=== PATIENT | male | born 1975 | race Caucasian/White ===

== ENCOUNTER 2018-06-21 01:06 | Observation (INO) ==
[2018-06-21 01:25] LABS: Basophils % 0.4 % (0.1-2.0); Eosinophils # 0.2 K/mm3 (0.0-0.4); Eosinophils % 2.1 % (0.1-12.0); Hematocrit 39.5 % (42.0-52.0); Hemoglobin 13.8 g/dL (14.1-18.0); Lymphocytes # 3.3 K/mm3 (0.7-4.5); Mean Corpuscular HGB Conc 34.9 g/dL (31.8-35.4); Mean Corpuscular Hemoglobin 32.5 pg (27.0-31.2); Mean Corpuscular Volume 93.2 fl (80-94); Mean Platelet Volume 7.1 fl (7.4-10.4); Monocytes # 0.5 K/mm3 (0.1-1.0); Monocytes % 6.2 % (1.7-9.3); Neutrophils # 4.2 K/mm3 (1.8-7.8); Neutrophils % 51.4 % (37.0-80.0); Platelet Count 220 K/mm3 (142-424); Red Blood Count 4.24 M/mm3 (4.60-6.20); White Blood Count 8.2 K/mm3 (4.8-10.8)
--- NOTE | 2018-06-21 01:34 | Emergency Department Note ---
ED Disposition Clinical Impression: Angina at rest, Tobacco use, Hypokalemia, Obesity (BMI 30.0-34.9) CAD (coronary artery disease) Qualifiers: Coronary Disease-Associated Artery/Lesion type: unspecified vessel or lesion type [place] vs. transplanted heart: [place] heart Associated angina: with unspecified angina Qualified Code(s): I25.119 - Atherosclerotic heart disease of [place] coronary artery with unspecified angina pectoris Disposition: Admitted as Observation Condition on Discharge: Good - Critical Care Critical Care Time: No Attestation: On 06/21/18, the high probability of a clinically significant, sudden or life threatening deterioration of the following system(s) required my full and direct attention, intervention and personal management. The time I documented below is in addition to time spent performing reported procedures but includes the following listed in this critical care notation. Medical Decision Making - Medical Records Medical records reviewed: Yes: I reviewed the patient's medical records. - Juan C Inquiry Pt receiving controlled substance: No Vital Signs: 06/21/18 01:07 Temperature 98.2 F Temperature Source Oral Pulse Rate [Right Brachial] 76 Respiratory Rate 15 Blood Pressure [Right Arm] 158/77 H Blood Pressure Mean [Right Arm] 104 02 Sat by Pulse Oximetry 97 - Lab Data Lab results reviewed: Yes: I reviewed the patient's lab results. Lab Results 06/21/18 01:10: WBC 8.2, RBC 4.24 L, Hgb 13.8 L, Hct 39.5 L, MCV 93.2, MCH 32.5 H, MCHC 34.9, RDW 14.0, Plt Count 220, MPV 7.1 L, Neut % (Auto) 51.4, Lymph % (Auto) 40.0, [place] % (Auto) 6.2, Eos % (Auto) 2.1, Baso % (Auto) 0.4, Neut # (Auto) 4.2, Lymph # (Auto) 3.3, [place] # (Auto) 0.5, Eos # (Auto) 0.2, Baso # (Auto) 0.0 06/21/18 01:10: Sodium 142, Potassium 2.9 L*, Chloride 103, Carbon Dioxide 30, Anion Gap 11.9, BUN 6 L, Creatinine 0.77, Estimated Creat Clear 176, Estimated GFR 112, Est GFR ( Amer) 135, Calcium 8.8, Troponin I 0.05 Result diagrams: 06/21/18 01:10 06/21/18 01:10 Orders (Tests/Meds): ED MEDICATIONS Generic Name Dose Route Start Last Admin Trade Name Freq PRN Reason Stop Dose Admin Sodium Chloride 10 ml 06/21/18 01:15 Saline Flush 10ml Syringe IV 07/21/18 01:14 NEEDED PRN Maintain IV Site Discontinued Medications Generic Name Dose Route Start Last Admin Trade Name Freq PRN Reason Stop Dose Admin Aspirin 324 mg 06/21/18 01:20 06/21/18 01:20 Aspirin 81mg Chewable Tablet PO 06/21/18 01:21 324 mg ONCE ONE Administration Famotidine 20 mg 06/21/18 01:24 06/21/18 01:30 Pepcid 20mg/2ml Vial IV 06/21/18 01:25 20 mg ONCE ONE Administration Metoclopramide HCl 10 mg 06/21/18 01:24 06/21/18 01:30 Reglan 10mg/2ml Vial IVP 06/21/18 01:25 10 mg ONCE ONE Administration Nitroglycerin 1 gm 06/21/18 01:21 06/21/18 01:21 Nitroglycerin 1 Inch Oint Udp TD 06/21/18 01:22 1 gm ONCE ONE Administration Potassium Chloride 40 meq 06/21/18 01:39 06/21/18 01:43 Klor-Con 20meq Tablet PO 06/21/18 01:40 40 meq ONCE ONE Administration ORDERS Category Date Time Status XR chest portable Stat Exams 06/21/18 01:15 Taken BMP [Basic Metabolic Panel] Stat Lab 06/21/18 01:10 Received Troponin I Stat Lab 06/21/18 01:10 Received ECG Request by /Mala Stat Y 06/21/18 01:15 Ordered - Radiology Data #1 Image(s): Chest Image Reviewed: Yes I reviewed the patient's radiology image Preliminary Findings: Normal/NAD - ECG Data Tracing #1 Normal Sinus Rhythm: Yes Ischemic changes: non-specific ST-T wave changes ECG compared to prior tracings: there are no prior tracings available for comparison Chest Pain HPI - General Chief Complaint: Chest Pain Stated Complaint: chest pain Time Seen by Provider: 06/21/18 01:10 Mode of Arrival: Ambulatory Source of Information: Patient, Parent(s), Medical Record Limitations: No Limitations Description of Symptoms (Recalled from ER Triage Doc. by RN): Pt c/o chest pain that started last night. Reports that it has been intermittent, radiating between shoulder blades and down left arm. Reports he had the " maker" in 2017 and was stented. Reports that his pain is a 3/10 at the moment. - History of Present Illness HPI narrative: wm who had cad with stent 2016 and had been doing ok but has continued to smoke - pt has did well but over the last 2 days intermittent and progressive chest pain with rad to upper ext - also has some element of gerd MD complaint: chest pain indicative of cardiac Onset (ago): day(s) Duration: intermittent Activity at onset: during rest Pain location: substernal Severity: similar to previous episodes Pain radiation: RUE, LUE Risk Factors for CAD: Family Hx of CAD, Smoking Treatments prior to or on arrival for Cardiac Chest Pain: aspirin - LOBITO Score for Non-Stemi Age of Patient: 40-49 years old Heart Rate: 70-89 bpm Systolic Blood Pressure: 140-159 mmHg Serum Creatinine: 0.40-0.79 mg/dl CHF [place] Class: I-No CHF Other Risk Factors: None Non-Stemi Risk Score: 62 - Related Data Prior Cardiac Testing/Procedures: Stenting Home Medications Medication Instructions Recorded Confirmed Aspirin [Aspir 81] 81 mg PO DAILY 05/05/18 06/21/18 Clopidogrel Bisulfate [Plavix 75mg 75 mg PO DAILY 05/05/18 06/21/18 Tab] Venlafaxine HCl [Effexor XR 75mg 225 mg PO DAILY 05/05/18 06/21/18 capsule] Buprenorphine HCl/Naloxone HCl 8 mg SL DAILY 06/21/18 06/21/18 [Buprenorphin-Naloxon 8-2 mg Sl] Allergies Allergy/AdvReac Type Severity Reaction Status Date / Time cephalexin [From Keflex] Allergy Verified 05/05/18 12:42 ciprofloxacin [From Cipro] Allergy Verified 05/05/18 12:42 tramadol Allergy Verified 05/05/18 12:42 [facility] History - Hepatitis A Screen Drug use history?: Yes High risk sexual behaviors?: No History of sexually transmitted infection?: No Currently employed?: No Childcare worker?: No Do you have indoor plumbing?: Yes Do you have electricity?: Yes Attestation statement:: This patient has been screened for Hepatitis A risk factors. I have reviewed the patient's past medical history: Yes Medical History: Denies:: Cancer, Diabetes Mellitus Type 1, Diabetes Mellitus Type 2, MRSA Amputation: No - Social History Smoking Status: Current every day smoker Tobacco Type: cigarettes # Packs/Day (cigarettes): 1 Alcohol Intake: never Last Used Substance: unknown Occupational Status: employed Household Members: family - Psychiatric History Expresses thoughts of harming self/others: None Suicide Plan Description: No Plan ROS Obtained: Yes All systems reviewed & no additional complaints - Constitutional Constitutional: Denies fever(s) - Eyes Eyes: Denies change in vision - ENT Ears, Nose, Mouth, and Throat: Denies sore throat - Cardiovascular Cardiovascular: Reports chest pain, Reports chest pain at rest, Denies dyspnea, Reports radiating jaw, neck or arm pain - Respiratory Respiratory: No cough - Gastrointestinal Gastrointestingal: Denies: vomiting - Genitourinary Male Genitourinary: Denies flank pain - Musculoskeletal Musculoskeletal: Denies joint pain - Integumentary/Breasts Skin/Breast: Denies rash - Neurologic Neurologic: Denies seizure-like activity Physical Exam - General General appearance: alert - Head Head exam: normocephalic - Eye Eye exam: Present: PERRL, EOMI. Absent: scleral icterus - ENT ENT exam: Present: mucous membranes moist - Neck Neck exam: Present: trachea midline - Respiratory Respiratory exam: Present: normal lung sounds bilaterally. Absent: respiratory distress - Cardiovascular Cardiovascular exam: Present: regular rate, systolic murmur - Abdominal Exam Abdominal exam: Present: soft - Extremities Exam Extremities exam: Present: full ROM - Neurological Exam Neurological exam: Present: alert, oriented X3, CN II-XII intact - Psychiatric Psychiatric exam: Present: normal affect - Skin Skin exam: Absent: rash
[2018-06-21 01:35] LABS: Anion Gap 11.9 mEq/L (5-15); Calcium 8.8 mg/dL (8.5-10.1)
[2018-06-21 01:39] LABS: Potassium 2.9 mmoL/L (3.5-5.1)
[2018-06-21 05:38] LABS: Basophils % 0.7 % (0.1-2.0); Eosinophils # 0.2 K/mm3 (0.0-0.4); Eosinophils % 2.6 % (0.1-12.0); Lymphocytes # 2.3 K/mm3 (0.7-4.5); Lymphocytes % 33.7 % (10-50); Mean Corpuscular HGB Conc 34.2 g/dL (31.8-35.4); Mean Corpuscular Hemoglobin 32.1 pg (27.0-31.2); Mean Corpuscular Volume 93.7 fl (80-94); Mean Platelet Volume 7.6 fl (7.4-10.4); Monocytes # 0.3 K/mm3 (0.1-1.0); Neutrophils # 3.9 K/mm3 (1.8-7.8); Neutrophils % 58.1 % (37.0-80.0); Platelet Count 207 K/mm3 (142-424); Red Blood Count 4.05 M/mm3 (4.60-6.20); Red Cell Distribution Width 13.8 % (11.5-17.5); White Blood Count 6.8 K/mm3 (4.8-10.8)
[2018-06-21 05:47] LABS: INR 1.03 (0.9-1.1); Prothrombin Time 10.6 seconds (9.4-11.8)
[2018-06-21 05:51] LABS: Anion Gap 10.9 mEq/L (5-15); Calcium 8.9 mg/dL (8.5-10.1); Chol/HDL Ratio 5.9 (1-3.5); Potassium 3.9 mmoL/L (3.5-5.1)
--- NOTE | 2018-06-21 08:22 | Consult Report ---
Addendum entered and electronically signed by FRANCESCO Emerson 06/21/18 13:31: Pt received DEWAYNE to RCA. Continue ASA 81 mg daily along with plavix 75 mg daily. Added atorvastatin 40 mg daily, lisinopril 2.5 mg daily and metoprolol 12.5 mg BID. Recommend home in AM due to NSTEMI and coronary stenting. Follow up in 1 wk in our office. Original Note: History of Present Illness Consult date: 06/21/18 Requesting physician: Luis Eduardo Schneider Consult reason: chest pain Chief complaint: chest pain Additional Medical History:: 1. CAD A. History of LAD stent several years ago, [place], [place] 2. HTN 3. HLD, ?intolerant of statins 4. Tobacco use, contiued History of present illness: 42-year-old white male with known history of coronary artery disease presented to the emergency department for evaluation of 1 week history of exertion related chest pain. Chest pain described as a burning sensation across the chest with a heaviness and discomfort in both arms. Patient does relate some diaphoresis with exertion and the discomfort all symptoms resolve with rest. These of the same symptoms he had in the past when a stent was placed to his LAD. Patient has been continued on aspirin and Plavix since then. The patient relates that he has been taken off of blood pressure medications in the past due to side effects and believes he was taken off of statin therapy due to myalgias. EKG on admission is sinus rhythm with nonspecific ST-T abnormalities inferolaterally. Initial troponin was normal but second troponin has returned slightly elevated consistent with non-ST elevation [place]. Cardiology consulted for evaluation recommendations. Echocardiogram has been performed this morning with results pending at this time. Patient currently asymptomatic. [facility] History Medical History: Reports:: Hyperlipidemia, Hypertension, Myocardial Infarction Denies:: Cancer, Diabetes Mellitus Type 1, Diabetes Mellitus Type 2, MRSA *Have you ever received a pneumonia vaccine?: No *Have you received a flu vaccine this season?: No Other Medical History: Reports: Arthritis Other Surgeries: Yes: Appendectomy, Cardiac Catheterization, Cholecystectomy, Coronary Stent, EGD Amputation: No Fractures: No - *Social History Educational Level: Completed College Smoking Status: Current every day smoker Tobacco Type: cigarettes # Packs/Day (cigarettes): 1 Alcohol Intake: never Substance Use Type: prescription drug Last Used Substance: unknown *Occupational Status:: employed Housing: apartment Household Members: family *Travel in the last 8 weeks: None - Psychiatric History Expresses thoughts of harming self/others: None Suicide Plan Description: No Plan Family Hx:: Cancer, Coronary Artery Disease, Diabetes, Heart Attack, Hyperlipidemia, Hypertension Meds Home Medications Medication Instructions Recorded Confirmed Type Aspirin [Aspir 81] 81 mg PO DAILY 05/05/18 06/21/18 History Clopidogrel Bisulfate [Plavix 75mg 75 mg PO DAILY 05/05/18 06/21/18 History Tab] Venlafaxine HCl [Effexor XR 75mg 225 mg PO DAILY 05/05/18 06/21/18 History capsule] Buprenorphine HCl/Naloxone HCl 8 mg SL DAILY 06/21/18 06/21/18 History [Buprenorphin-Naloxon 8-2 mg Sl] Allergies Allergy/AdvReac Type Severity Reaction Status Date / Time cephalexin [From Keflex] Allergy Verified 05/05/18 12:42 ciprofloxacin [From Cipro] Allergy Verified 05/05/18 12:42 tramadol Allergy Verified 05/05/18 12:42 Review of Systems - *Cardiovascular Reports chest pain, Reports chest pain with activity, Reports shortness of breath with activity - *Respiratory Denies cough, Denies wheezing - *Gastrointestinal Denies abdominal pain, Denies cramping, Denies loose stools - *Genitourinary Denies blood in urine - *Musculoskeletal Denies joint pain, Denies back pain - *Neurologic Denies seizure-like activity Exam Vital signs and Labs for Last 24 Hours: Temp Pulse Resp BP Pulse Ox 97.9 F 60 18 101/62 L 97 06/21/18 08:00 06/21/18 08:00 06/21/18 08:00 06/21/18 08:00 06/21/18 08:00 Laboratory Results - last 24 hr 06/21/18 01:10: WBC 8.2, RBC 4.24 L, Hgb 13.8 L, Hct 39.5 L, MCV 93.2, MCH 32.5 H, MCHC 34.9, RDW 14.0, Plt Count 220, MPV 7.1 L, Neut % (Auto) 51.4, Lymph % (Auto) 40.0, [place] % (Auto) 6.2, Eos % (Auto) 2.1, Baso % (Auto) 0.4, Neut # (Auto) 4.2, Lymph # (Auto) 3.3, [place] # (Auto) 0.5, Eos # (Auto) 0.2, Baso # (Auto) 0.0 06/21/18 01:10: Sodium 142, Potassium 2.9 L*, Chloride 103, Carbon Dioxide 30, Anion Gap 11.9, BUN 6 L, Creatinine 0.77, Estimated Creat Clear 176, Estimated GFR 112, Est GFR ( Amer) 135, Glucose 105, Calcium 8.8, Troponin I 0.05 06/21/18 05:25: Troponin I 0.08 H 06/21/18 05:25: WBC 6.8, RBC 4.05 L, Hgb 13.0 L, Hct 38.0 L, MCV 93.7, MCH 32.1 H, MCHC 34.2, RDW 13.8, Plt Count 207, MPV 7.6, Neut % (Auto) 58.1, Lymph % (Auto) 33.7, [place] % (Auto) 5.0, Eos % (Auto) 2.6, Baso % (Auto) 0.7, Neut # (Auto) 3.9, Lymph # (Auto) 2.3, [place] # (Auto) 0.3, Eos # (Auto) 0.2, Baso # (Auto) 0.0 06/21/18 05:25: PT 10.6, INR 1.03 06/21/18 05:25: Sodium 142, Potassium 3.9 D, Chloride 105, Carbon Dioxide 30, Anion Gap 10.9, BUN 5 L, Creatinine 0.71, Estimated Creat Clear 189, Estimated GFR 123, Est GFR ( Amer) 149, Glucose 113 H, Calcium 8.9, Magnesium 2.0, Triglycerides 226 H, Cholesterol 142, LDL Cholesterol 73, VLDL Cholesterol 45 H, HDL Cholesterol 24 L, Cholesterol/HDL Ratio 5.9 H I & O for Last 24 hours: Intake & Output 06/18/18 06/19/18 06/20/18 06/21/18 11:59 11:59 11:59 11:59 Intake Total Balance Weight 213 lb 1 oz - *Routine HEENT Exam Head: Present: normocephalic Eye: Present: EOMI, PERRL ENT: Present: mucous membranes moist - *Routine Neck Exam Present: supple. Absent: JVD, carotid bruit - *Routine Respiratory Exam Present: CTA bilaterally. Absent: accessory muscle use, rales, rhonchi, wheezes - *Routine Cardiovascular Exam Present: RRR. Absent: murmur, gallop, rubs - *Routine Abdominal Exam Present: soft. Absent: tenderness, distended, guarding - *Routine Extremities Exam Absent: edema, calf tenderness - *Routine Neurological Exam Present: alert, oriented X3, moving all extremities Assessment and Plan (1) NSTEMI (non-ST elevated myocardial infarction) Current visit: Yes Status: Acute Category: Medical Code(s): I21.4 - Non-ST elevation (NSTEMI) myocardial infarction (2) History of placement of stent in LAD coronary artery Current visit: Yes Status: Acute Category: Medical Code(s): Z95.5 - Presence of coronary angioplasty implant and graft (3) CAD (coronary artery disease) Current visit: Yes Status: Acute Qualifiers: Coronary Disease-Associated Artery/Lesion type: unspecified vessel or lesion type [place] vs. transplanted heart: [place] heart Associated angina: with unspecified angina Qualified Code(s): I25.119 - Atherosclerotic heart disease of [place] coronary artery with unspecified angina pectoris Category: Medical Code(s): I25.10 - Atherosclerotic heart disease of [place] coronary artery without angina pectoris (4) Tobacco use Current visit: Yes Status: Acute Category: Medical Code(s): Z72.0 - Tobacco use - Assessment and plan all Dx Assessment and Plan for all problems:: 1. Continue ASA and plavix 2. C today due to NSTEMI 3. Echo results pending, consider adding SANDRA inhibitor if blood pressure tolerates. 4. Unable to add beta henri at this time due to low BP. Will continue to follow 5. Add statin
--- NOTE | 2018-06-21 08:44 | Pharmacy Consult Notes ---
[facility] Pharmacy VTE Monitoring - Patient Demographics Admission date: 06/21/18 Report Date: 06/21/18 Time: 08:44 Allergies/Adverse Reactions: Patient Allergies cephalexin [From Keflex] Allergy (Verified 05/05/18 12:42) ciprofloxacin [From Cipro] Allergy (Verified 05/05/18 12:42) tramadol Allergy (Verified 05/05/18 12:42) Height: 1.78 m Weight: 96.644 kg Patient Problems: Current Active Problems Angina at rest (Acute) Tobacco use (Acute) Hypokalemia (Acute) Obesity (BMI 30.0-34.9) (Acute) CAD (coronary artery disease) (Acute) NSTEMI (non-ST elevated myocardial infarction) (Acute) History of placement of stent in LAD coronary artery (Acute) - VTE Risk Labs: VTE Related Lab Results Hgb 13.0 g/dL (14.1-18.0) L 06/21/18 05:25 Hct 38.0 % (42.0-52.0) L 06/21/18 05:25 Plt Count 207 K/mm3 (142-424) 06/21/18 05:25 PT 10.6 seconds (9.4-11.8) 06/21/18 05:25 INR 1.03 (0.9-1.1) 06/21/18 05:25 BUN 5 mg/dL (7-18) L 06/21/18 05:25 Creatinine 0.71 mg/dL (0.70-1.30) 06/21/18 05:25 Estimated Creat Clear 189 mL/min (50-200) 06/21/18 05:25 Was VTE Risk Assessment Performed: Yes VTE Risk Level: Moderate Risk Clinical Trial Participant: No - Prophylaxis VTE Prophylaxis Ordered?: Yes Types of VTE Prophylaxis: TEDS Knee High
--- NOTE | 2018-06-21 13:51 | Cardiology Report ---
PROCEDURE: 2-D M-mode and color Doppler study INDICATIONS FOR THE TEST: Chest pain + COPD Heart Murmur Tobacco Smoking+ Palpitations Fatigue Syncope Edema Hypertension Diabetes Mellitus Rheumatic Fever SOB HAYNES Obesity Hyperlipidemia Family History HD Additional History STENT,CAD,HX DRUG USE PATIENT INFORMATION HEIGHT: 60 WEIGHT:215 GENDER: Male B/P:140/74 2-D/M-MODE INTERPRETATION: 2-D MEASUREMENTS OBSERVED VALUES IN CMS Right Ventricular Dimension (RVDd) 0.9 Interventricular Septum (Thickness)(IVsd) 1.0 Left Ventricular Internal Dimensions(LVIDd) 5.7 Left Ventricular Posterior Wall (Thickness)(LVPWd) 1.0 Aortic Root 2.6 Aortic Cusp Separation 2.2 Left Atrial Dimensions (LAD) 3.9 2D 1. Left atrium is normal size, left ventricle is normal size, there is no concentric left ventricular hypertrophy, visually estimated ejection fraction of 55% with no obvious regional wall motion abnormality. Endocardial surfaces are somewhat poorly visualized. 2. The right atrium and right ventricle are normal size and contractility. 3. The aortic valve is minimally thickened and fibrosed. 4. The mitral and tricuspid valvular grossly normal. 5. The pulmonic valve is poorly present. 6. No significant pericardial effusion noted. DOPPLER INTERROGATION: Doppler interrogation of the aortic, mitral and tricuspid valvular presence of mild mitral and tricuspid regurgitation, tricuspid regurgitation jet velocity is inadequate for calculation of the right ventricular systolic pressure, diastolic parameters are within normal range. CONCLUSION: 1. Normal left ventricular size, preserved left ventricular systolic function, visually estimated ejection fraction 55% with no regional wall motion abnormality, endocardial surfaces are somewhat poorly visualized. Diastolic parameters are within normal range. 2. Mild mitral and tricuspid regurgitation 3. No significant pericardial effusion noted.
--- NOTE | 2018-06-21 13:57 | History & Physical Report ---
*Admission Date: 06/21/18 *Chief complaint: chest pain *History of present illness: this pt presented to ed last pm with chest pain progressive over the last few days - he has sig hx of cad with stent in 2017 and uses tob - he was admitted for eval and card consult with serial enz [facility] History I have reviewed the patient's past medical history: Yes Medical History: Reports:: Hyperlipidemia, Hypertension, Myocardial Infarction Denies:: Cancer, Diabetes Mellitus Type 1, Diabetes Mellitus Type 2, MRSA *Have you ever received a pneumonia vaccine?: No *Have you received a flu vaccine this season?: No Other Medical History: Reports: Arthritis Other Surgeries: Yes: Appendectomy, Cardiac Catheterization, Cholecystectomy, Coronary Stent, EGD Amputation: No Fractures: No - *Social History Educational Level: Completed College Smoking Status: Current every day smoker Tobacco Type: cigarettes # Packs/Day (cigarettes): 1 Alcohol Intake: never Substance Use Type: prescription drug Last Used Substance: unknown *Occupational Status:: employed Housing: apartment Household Members: family *Travel in the last 8 weeks: None - Psychiatric History Expresses thoughts of harming self/others: None Suicide Plan Description: No Plan Family Hx:: Cancer, Coronary Artery Disease, Diabetes, Heart Attack, Hyperlipidemia, Hypertension Review of Systems - Review of Systems Review of systems:: pertinent systems reviewed and negative unless documented below - Constitutional Denies fever(s) - Eyes Denies change in vision - ENT Denies sore throat - *Cardiovascular Reports chest pain, Reports chest pain at rest, Reports radiating jaw, neck or arm pain - *Respiratory Denies cough, Denies shortness of breath - *Gastrointestinal Denies abdominal pain - *Genitourinary Denies blood in urine - *Musculoskeletal Denies joint pain, Denies joint swelling - Integumentary/Breasts Denies rash - *Neurologic Denies dizziness, Denies seizure-like activity - Psychiatric Reports other (martinez hx of opiate dep and is on suboxone ) Meds Home Medications Medication Instructions Recorded Confirmed Type Aspirin [Aspir 81] 81 mg PO DAILY 05/05/18 06/21/18 History Clopidogrel Bisulfate [Plavix 75mg 75 mg PO DAILY 05/05/18 06/21/18 History Tab] Venlafaxine HCl [Effexor XR 75mg 225 mg PO DAILY 05/05/18 06/21/18 History capsule] Buprenorphine HCl/Naloxone HCl 2 tab SL DAILY 06/21/18 06/21/18 History [Buprenorphin-Naloxon 8-2 mg Sl] Allergies Allergy/AdvReac Type Severity Reaction Status Date / Time cephalexin [From Keflex] Allergy Verified 05/05/18 12:42 ciprofloxacin [From Cipro] Allergy Verified 05/05/18 12:42 tramadol Allergy Verified 05/05/18 12:42 Exam Vital signs and Labs for Last 24 Hours: Temp Pulse Resp BP Pulse Ox 97.9 F 60 18 101/62 L 97 06/21/18 08:00 06/21/18 08:00 06/21/18 08:00 06/21/18 08:00 06/21/18 08:00 Laboratory Results - last 24 hr 06/21/18 01:10: WBC 8.2, RBC 4.24 L, Hgb 13.8 L, Hct 39.5 L, MCV 93.2, MCH 32.5 H, MCHC 34.9, RDW 14.0, Plt Count 220, MPV 7.1 L, Neut % (Auto) 51.4, Lymph % (Auto) 40.0, Wilkinson % (Auto) 6.2, Eos % (Auto) 2.1, Baso % (Auto) 0.4, Neut # (Auto) 4.2, Lymph # (Auto) 3.3, Wilkinson # (Auto) 0.5, Eos # (Auto) 0.2, Baso # (Auto) 0.0 06/21/18 01:10: Sodium 142, Potassium 2.9 L*, Chloride 103, Carbon Dioxide 30, Anion Gap 11.9, BUN 6 L, Creatinine 0.77, Estimated Creat Clear 176, Estimated GFR 112, Est GFR ( Amer) 135, Glucose 105, Calcium 8.8, Troponin I 0.05 06/21/18 05:25: Troponin I 0.08 H 06/21/18 05:25: WBC 6.8, RBC 4.05 L, Hgb 13.0 L, Hct 38.0 L, MCV 93.7, MCH 32.1 H, MCHC 34.2, RDW 13.8, Plt Count 207, MPV 7.6, Neut % (Auto) 58.1, Lymph % (Auto) 33.7, Wilkinson % (Auto) 5.0, Eos % (Auto) 2.6, Baso % (Auto) 0.7, Neut # (Auto) 3.9, Lymph # (Auto) 2.3, Wilkinson # (Auto) 0.3, Eos # (Auto) 0.2, Baso # (Auto) 0.0 06/21/18 05:25: PT 10.6, INR 1.03 06/21/18 05:25: Sodium 142, Potassium 3.9 D, Chloride 105, Carbon Dioxide 30, Anion Gap 10.9, BUN 5 L, Creatinine 0.71, Estimated Creat Clear 189, Estimated GFR 123, Est GFR ( Amer) 149, Glucose 113 H, Calcium 8.9, Magnesium 2.0, Triglycerides 226 H, Cholesterol 142, LDL Cholesterol 73, VLDL Cholesterol 45 H, HDL Cholesterol 24 L, Cholesterol/HDL Ratio 5.9 H 06/21/18 08:12: Troponin I 0.10 H I & O for Last 24 hours: Intake & Output 06/19/18 06/20/18 06/21/18 06/22/18 11:59 11:59 11:59 11:59 Intake Total Balance Weight 213 lb 1 oz - Constitutional no acute distress, obese - *Routine HEENT Exam Head: Present: normocephalic Eye: Present: EOMI, PERRL ENT: Present: mucous membranes dry - *Routine Neck Exam Present: supple. Absent: JVD, carotid bruit - *Routine Respiratory Exam Present: CTA bilaterally - *Routine Cardiovascular Exam Present: RRR, murmur. Absent: rubs - *Routine Abdominal Exam Present: soft. Absent: organomegaly - *Routine Extremities Exam Present: full ROM. Absent: calf tenderness - *Routine Skin Exam Present: intact - *Routine Neurological Exam Present: alert, oriented X3, CN II-XII intact. Absent: sensory deficit, motor deficit - Routine Psychiatric Exam Present: normal affect Assessment and Plan (1) NSTEMI (non-ST elevated myocardial infarction) Current visit: Yes Status: Acute Category: Medical Code(s): I21.4 - Non-ST elevation (NSTEMI) myocardial infarction (2) History of placement of stent in LAD coronary artery Current visit: Yes Status: Acute Category: Medical Code(s): Z95.5 - Presence of coronary angioplasty implant and graft (3) CAD (coronary artery disease) Current visit: Yes Status: Acute Qualifiers: Coronary Disease-Associated Artery/Lesion type: unspecified vessel or lesion type [place] vs. transplanted heart: [place] heart Associated angina: with unspecified angina Qualified Code(s): I25.119 - Atherosclerotic heart disease of [place] coronary artery with unspecified angina pectoris Category: Medical Code(s): I25.10 - Atherosclerotic heart disease of [place] coronary artery without angina pectoris (4) Tobacco use Current visit: Yes Status: Acute Category: Medical Code(s): Z72.0 - Tobacco use (5) Opiate dependence Current visit: Yes Status: Acute Qualifiers: Substance use status: in remission Qualified Code(s): F11.21 - Opioid dependence, in remission Category: Medical Code(s): F11.20 - Opioid dependence, uncomplicated (6) Hypokalemia Current visit: Yes Status: Acute Category: Medical Code(s): E87.6 - Hypokalemia (7) Obesity (BMI 30.0-34.9) Current visit: Yes Status: Acute Category: Medical Code(s): E66.9 - Obesity, unspecified
--- NOTE | 2018-06-22 09:39 | Discharge Summary ---
General - General Admission date:: 06/21/18 Discharge date: 06/21/18 HPI HPI: this pt presented to ed last pm with chest pain progressive over the last few days - he has sig hx of cad with stent in 2017 and uses tob - he was admitted for eval and card consult with serial enz Hospital Course Hospital Course: pt did well throughout night and had elevated serial troponin and was seen by card -CAD A. History of LAD stent several years ago, ALDO Jernigan 2. HTN 3. HLD, ?intolerant of statins 4. Tobacco use, contiued History of present illness: 42-year-old white male with known history of coronary artery disease presented to the emergency department for evaluation of 1 week history of exertion related chest pain. Chest pain described as a burning sensation across the chest with a heaviness and discomfort in both arms. Patient does relate some diaphoresis with exertion and the discomfort all symptoms resolve with rest. These of the same symptoms he had in the past when a stent was placed to his LAD. Patient has been continued on aspirin and Plavix since then. The patient relates that he has been taken off of blood pressure medications in the past due to side effects and believes he was taken off of statin therapy due to myalgias. EKG on admission is sinus rhythm with nonspecific ST-T abnormalities inferolaterally. Initial troponin was normal but second troponin has returned slightly elevated consistent with non-ST elevation [place]. Cardiology consulted for evaluation recommendations. Echocardiogram has been performed this morning with results pending at this time. Patient currently asymptomatic. Continue ASA and plavix 2. [facility] today due to NSTEMI 3. Echo results pending, consider adding SANDRA inhibitor if blood pressure tolerates. 4. Unable to add beta henri at this time due to low BP. Will continue to follow 5. Add statin pt had echo-pt with stable ejection fracture - eft atrium is normal size, left ventricle is normal size, there is no concentric left ventricular hypertrophy, visually estimated ejection fraction of 55% with no obvious regional wall motion abnormality. Endocardial surfaces are somewhat poorly visualized. 2. The right atrium and right ventricle are normal size and contractility. 3. The aortic valve is minimally thickened and fibrosed. 4. The mitral and tricuspid valvular grossly normal. 5. The pulmonic valve is poorly present. 6. No significant pericardial effusion noted. DOPPLER INTERROGATION: Doppler interrogation of the aortic, mitral and tricuspid valvular presence of mild mitral and tricuspid regurgitation, tricuspid regurgitation jet velocity is inadequate for calculation of the right ventricular systolic pressure, diastolic parameters are within normal range. CONCLUSION: 1. Normal left ventricular size, preserved left ventricular systolic function, visually estimated ejection fraction 55% with no regional wall motion abnormality, endocardial surfaces are somewhat poorly visualized. Diastolic parameters are within normal range. 2. Mild mitral and tricuspid regurgitation 3. No significant pericardial effusion noted. pt had card cath- The left main artery normal 2. The left anterior descending artery is proximally normal and then has a mid vessel stent which is widely patent with minimal in-stent restenosis. Distal to the stent is a smooth 30-40% stenosis 3. The circumflex artery is a codominant vessel with mild 10-20% stenoses 4. The right coronary artery is a large codominant vessel and has proximal 40% followed by 60-70% followed by a focal mid vessel 90% stenosis. Distally there is a hazy 30-40% stenosis proximal to the posterior descending artery 5. The ABREU ventriculogram reveals normal 65% 6. The left ventricular end-diastolic pressure 25 mmHg IMPRESSION: 1. Coronary artery disease as described above with patent mid LAD stent 2. Critical dominant right disease as described above with successful stenting reducing 3 lesions to 0% with one ontiguous drug-eluting stent 3. Normal ejection fraction 4. Elevated LVEDP PLAN: 1. Brilinta and aspirin for one year 2. LDL less than 55 3. Risk factor modification 4. Cardiac rehabilitation 5. Beta blockers sandra inhibitors Objective Vital signs: Temp Pulse Resp BP Pulse Ox 97.9 F 70 18 125/72 99 06/21/18 08:10 06/21/18 19:04 06/21/18 19:04 06/21/18 19:04 06/21/18 19:04 no acute distress, obese - *Routine HEENT Exam Head: Present: normocephalic Eye: Present: EOMI, PERRL ENT: Present: mucous membranes dry - *Routine Neck Exam Present: supple - *Routine Respiratory Exam Absent: respiratory distress - *Routine Cardiovascular Exam Present: RRR - *Routine Extremities Exam Absent: calf tenderness - *Routine Neurological Exam Present: oriented X3 - Routine Psychiatric Exam Present: normal affect Results Labs on day of discharge: Labs from last 24 hours 06/21/18 13:16 Activated Clotting Time 313 H* DS: Diagnosis - Discharge Diagnosis (1) NSTEMI (non-ST elevated myocardial infarction) Status: Acute (2) History of placement of stent in LAD coronary artery Status: Acute (3) CAD (coronary artery disease) Status: Acute (4) Tobacco use Status: Acute (5) Opiate dependence Status: Acute (6) Hypokalemia Status: Acute (7) Obesity (BMI 30.0-34.9) Status: Acute (8) Elevated left ventricular end-diastolic pressure (LVEDP) Status: Acute (9) Hyperlipidemia Status: Acute Discharge Plan - Patient Discharge Instructions ACTIVITY: Continue current activity DIET: continue same diet Additional Instructions: CALL FOR FOLLOW UP APT TAKE ASPIRIN AND PLAVIX TAKE CHOLSTEROL MEDICATION RETURN WITH ANY SIGNS OF BLEEDING OR HEMATOMA. NO USING R WRIST FOR A WEEK Patient Instructions: Coronary Artery Disease, Angina, Echocardiogram, Heart- Healthy Diet, DI for Angina, DI for Surgical Site Infection, DI for Coronary Artery Disease - Follow up Plan Disposition: Home, Self-Halfway Medications: Home Medications Medication Instructions Recorded Confirmed Type Aspirin [Aspir 81] 81 mg PO DAILY 05/05/18 06/21/18 History Clopidogrel Bisulfate [Plavix 75mg 75 mg PO DAILY 05/05/18 06/21/18 History Tab] Venlafaxine HCl [Effexor XR 75mg 225 mg PO DAILY 05/05/18 06/21/18 History capsule] Buprenorphine HCl/Naloxone HCl 2 tab SL DAILY 06/21/18 06/21/18 History [Buprenorphin-Naloxon 8-2 mg Sl] Atorvastatin Calcium [Lipitor 40mg 40 mg PO HS #90 tablet 06/22/18 Rx Tablet] Lisinopril [Zestril 2.5mg Tablet] 2.5 mg PO DAILY #90 tablet 06/22/18 Rx Metoprolol Tartrate [Lopressor 12.5 mg PO BID #60 tablet 06/22/18 Rx 25mg tablet] Nicotine [Nicoderm 21mg/24hr 21 mg TD DAILYP PRN #30 patch.td24 06/22/18 Rx patch] Prescriptions/Medication Reconciliation: New Lisinopril [Zestril 2.5mg Tablet] 2.5 mg PO DAILY #90 tablet Metoprolol Tartrate [Lopressor 25mg tablet] 12.5 mg PO BID #60 tablet Nicotine [Nicoderm 21mg/24hr patch] 21 mg TD DAILYP PRN #30 patch.td24 PRN Reason: Nicotine Cravings Atorvastatin Calcium [Lipitor 40mg Tablet] 40 mg PO HS #90 tablet Continue Clopidogrel Bisulfate [Plavix 75mg Tab] 75 mg PO DAILY Venlafaxine HCl [Effexor XR 75mg capsule] 225 mg PO DAILY Aspirin [Aspir 81] 81 mg PO DAILY Buprenorphine HCl/Naloxone HCl [Buprenorphin-Naloxon 8-2 mg Sl] 2 tab SL DAILY
== END 2018-06-21 19:31 | disposition home or self-care (01) ==
LOC: SUPCPDRO → ER 01:06 → 2ND 01:06
PROVIDERS: ADMIT Emergency Medicine; ATTEND Emergency Medicine
CPT/HCPCS: 36415; 71010; 71045; 80048; 80061; 83735; 84484; 85025; 85347; 85610; 92928; 93005; 93306; 93458; 96374; 96375; 99284; C9600; G0378; J0571; J1644; Q9967

== ENCOUNTER → 2018-07-08 14:29 | Outpatient (CLI) | payer BC, SELFPAY ==
--- NOTE | 2018-07-08 14:31 | CA_ITS ---
PROCEDURE: Limited study to evaluate left ventricular systolic function INDICATIONS FOR THE TEST: Chest pain COPD Heart Murmur Tobacco Smoking Palpitations Fatigue Syncope Edema Hypertension Diabetes Mellitus Rheumatic Fever SOB HAYNES Obesity Hyperlipidemia Family History HD Additional History RE CHECK FOR EF ONLY PER MICHAEL HUANG PATIENT INFORMATION HEIGHT: 68 WEIGHT:218 GENDER: Male B/P:140/74 2-D/M-MODE INTERPRETATION: 2-D MEASUREMENTS OBSERVED VALUES IN CMS Right Ventricular Dimension (RVDd) Interventricular Septum (Thickness)(IVsd) Left Ventricular Internal Dimensions(LVIDd) Left Ventricular Posterior Wall (Thickness)(LVPWd) Aortic Root Aortic Cusp Separation Left Atrial Dimensions (LAD) 2D DOPPLER INTERROGATION: CONCLUSION: 1. Normal left ventricular size, visually estimated ejection fraction 55% with no regional wall motion abnormality.
== END ==
PROVIDERS: PCP Emergency Medicine; Visit Provider Internal Medicine Cardiovascular Disease
DX: I25.10 Atherosclerotic heart disease of native coronary artery without angina pectoris (principal)
CPT/HCPCS: 93308

== ENCOUNTER → 2018-08-07 08:32 | Outpatient (CLI) | payer BC, SELFPAY ==
--- NOTE | 2018-08-07 08:35 | NVE_ITS ---
Venous Exam Indications: 729.5 Pain in limb. Discoloration of skin zeke lower legs, ankles, and feet. IMPRESSIONS 1. There is no evidence of significant Reflux. 2. No evidence of deep or superficial vein thrombosis involving the right lower extremity 3. No evidence of deep or superficial vein thrombosis involving the left lower extremity History: Risk factors: Current tobacco use. Hypertension. Pt on Plavix. Complete lower extremity venous duplex evaluation. Doppler flow study including spectral analysis, color and nathan scale imaging. Location: Vascular laboratory. Patient status: Outpatient. Tables: Venous flow and imaging: + +-------+ + Location Overall Flow properties + +-------+ + Right common femoral Patent Normal phasicity; spontaneous; normal augmentation; compressible + +-------+ + Right saphenofemoral junction Patent Compressible + +-------+ + Right profunda femoral Patent Compressible + +-------+ + Right femoral Patent Normal phasicity; spontaneous; normal augmentation; compressible; no reflux + +-------+ + Right greater saphenous Patent Normal phasicity; spontaneous; normal augmentation; compressible + +-------+ + Right popliteal Patent Normal phasicity; spontaneous; normal augmentation; compressible + +-------+ + Right posterior tibial Patent Compressible + +-------+ + Right peroneal Patent Compressible + +-------+ + Right gastrocnemius Patent Compressible + +-------+ + Right soleal Patent Compressible + +-------+ + Left common femoral Patent Normal phasicity; spontaneous; normal augmentation; compressible + +-------+ + Left saphenofemoral junction Patent Compressible + +-------+ + Left profunda femoral Patent Compressible + +-------+ + Left femoral Patent Normal phasicity; spontaneous; normal augmentation; compressible + +-------+ + Left greater saphenous Patent Normal phasicity; spontaneous; normal augmentati
== END ==
PROVIDERS: Visit Provider Internal Medicine
DX: M79.604 Pain in right leg (principal); M79.605 Pain in left leg; L81.9 Disorder of pigmentation, unspecified; E78.5 Hyperlipidemia, unspecified; I11.9 Hypertensive heart disease without heart failure; I25.10 Atherosclerotic heart disease of native coronary artery without angina pectoris; R53.83 Other fatigue; R94.30 Abnormal result of cardiovascular function study, unspecified; Z72.0 Tobacco use
CPT/HCPCS: 93970

== ENCOUNTER → 2018-12-03 13:56 | Outpatient (CLI) | payer BC, SELFPAY ==
[2018-12-03 15:00] LABS: Basophils # 0.1 K/mm3 (0-0.2); Basophils % 0.6 % (0.1-2.0); Eosinophils # 0.1 K/mm3 (0.0-0.4); Eosinophils % 1.5 % (0.1-12.0); Hematocrit 39.5 % (42.0-52.0); Lymphocytes # 1.5 K/mm3 (0.7-4.5); Lymphocytes % 20.8 % (10-50); Mean Corpuscular HGB Conc 32.8 g/dL (31.8-35.4); Mean Corpuscular Hemoglobin 30.8 pg (27.0-31.2); Mean Platelet Volume 7.1 fl (7.4-10.4); Monocytes # 0.4 K/mm3 (0.1-1.0); Monocytes % 5.1 % (1.7-9.3); Neutrophils # 5.3 K/mm3 (1.8-7.8); Neutrophils % 71.9 % (37.0-80.0); Platelet Count 264 K/mm3 (142-424); Red Blood Count 4.21 M/mm3 (4.60-6.20); Red Cell Distribution Width 14.4 % (11.5-17.5); White Blood Count 7.4 K/mm3 (4.8-10.8)
[2018-12-03 15:33] LABS: Alanine Aminotransferase 19 U/L (12-78); Albumin Level 3.5 gm/dL (3.4-5.0); Albumin/Globulin Ratio 1.1 (1.1-1.8); Alkaline Phosphatase 195 U/L (46-116); Anion Gap 11.8 mEq/L (5-15); Aspartate Amino Transferase 17 U/L (15-37); Bilirubin,Total 0.3 mg/dL (0.2-1.0); Blood Urea Nitrogen 7 mg/dL (7-18); Calcium 8.9 mg/dL (8.5-10.1); Carbon Dioxide 28 mmol/L (21.0-32.0); Chloride 102 mmol/L (98-107); Cholesterol 153 mg/dL (140-200); Creatinine,Serum 0.98 mg/dL (0.70-1.30); Estimated Glomerular Filt Rate 84 ml/min (>60); Free T4 (Free Thyroxine) 0.95 ng/dl (0.76-1.46); GFR (African American) 102 ML/MIN (>60); Globulin 3.3 gm/dl (1.3-3.2); Glucose 116 mg/dL (74-106); HDL Cholesterol 22 mg/dL (27-67); LDL Cholesterol 88 mg/dL (0-130); Potassium 3.8 mmoL/L (3.5-5.1); Sodium 138 mmol/L (136-145); Thyroid Stimulating Hormone 2.83 uIU/ml (0.358-3.740); Total Protein,Serum 6.8 gm/dL (6.4-8.2); Triglycerides 215 mg/dL (30-200); VLDL Cholesterol 43 mg/dL (0-40)
[2018-12-04 09:50] LABS: Vitamin D 25 Hydroxy 36.3 ng/mL (30.0-100.0)
== END ==
PROVIDERS: Visit Provider Emergency Medicine
DX: R53.83 Other fatigue (principal)
CPT/HCPCS: 80053; 80061; 82652; 84439; 84443; 85025

== ENCOUNTER → 2019-02-07 18:03 | Outpatient (CLI) | payer BC, SELFPAY ==
[2019-02-07 18:30] LABS: Hemoglobin A1C 5.1 % (0.0-7.0)
[2019-02-07 18:53] LABS: Ferritin 50 ng/mL (8-388)
[2019-02-09 06:43] LABS: Iron 49 ug/dL (38-169); UIBC 274 ug/dL (111-343)
[2019-02-09 21:13] LABS: Iron Saturation 15 % (15-55)
== END ==
PROVIDERS: Visit Provider Physician Assistant
DX: D64.9 Anemia, unspecified (principal); R73.9 Hyperglycemia, unspecified
CPT/HCPCS: 36415; 82728; 83036; 83540; 83550

== ENCOUNTER → 2019-04-15 14:42 | Outpatient (CLI) | payer BC, SELFPAY ==
[2019-04-15 17:20] LABS: Anion Gap 12.2 mEq/L (5-15); Blood Urea Nitrogen 8 mg/dL (7-18); Calcium 8.3 mg/dL (8.5-10.1); Carbon Dioxide 30 mmol/L (21.0-32.0); Chloride 98 mmol/L (98-107); Creatinine,Serum 0.94 mg/dL (0.70-1.30); Estimated Glomerular Filt Rate 88 ml/min (>60); GFR (African American) 107 ML/MIN (>60); Glucose 98 mg/dL (74-106); Potassium 3.2 mmoL/L (3.5-5.1); Sodium 137 mmol/L (136-145)
== END ==
PROVIDERS: Visit Provider Urology
DX: I25.10 Atherosclerotic heart disease of native coronary artery without angina pectoris (principal); E78.5 Hyperlipidemia, unspecified; E66.9 Obesity, unspecified; I73.9 Peripheral vascular disease, unspecified; R60.9 Edema, unspecified; Z72.0 Tobacco use
CPT/HCPCS: 36415; 80048

== ENCOUNTER → 2019-04-18 13:14 | Outpatient (CLI) | payer BC, SELFPAY ==
--- NOTE | 2019-04-18 13:14 | US_ITS ---
APPROVED REPORT Exam Type: Lower Extremity Segmental Pressures [employer] Ware[employer] Supervisor: Amanda Allan RVT Indications Claudication: Bilaterally Edema Current Smoker CAD Risk Factors Hypertension CAD Cardiac Disease Current Smoker Pressures/Indices Right Indices Left Indices Brachial 125.00 mmHg Brachial 133.00 mmHg Low Thigh 138.00 mmHg 1.04 Low Thigh 132.00 mmHg 0.99 Calf 101.00 mmHg 0.76 Calf 117.00 mmHg 0.88 Ankle(PT) 107.00 mmHg 0.80 Ankle(PT) 111.00 mmHg 0.83 Ankle(DP) 118.00 mmHg 0.89 Ankle(DP) 103.00 mmHg 0.77 Digit 79.00 mmHg 0.59 Digit 75.00 mmHg 0.56 Findings RT TWIN:0.89 LT TWIN:0.83 RT TBI:0.59 LT TBI:0.56 NORMAL PULSES BILATERAL NORMAL WAVEFORMS BILATERAL Conclusion Low bilateral TWIN suggesting mild PAD Electronically signed by : Adi Carroll MD 04/18/2019 15:45:55
== END ==
PROVIDERS: PCP Emergency Medicine; Visit Provider Urology
DX: I70.213 Atherosclerosis of native arteries of extremities with intermittent claudication, bilateral legs (principal); E78.5 Hyperlipidemia, unspecified; I11.9 Hypertensive heart disease without heart failure; I25.10 Atherosclerotic heart disease of native coronary artery without angina pectoris; I73.9 Peripheral vascular disease, unspecified; M79.606 Pain in leg, unspecified; R60.9 Edema, unspecified; Z72.0 Tobacco use; Z95.5 Presence of coronary angioplasty implant and graft
CPT/HCPCS: 93923

== ENCOUNTER → 2019-05-15 15:56 | Outpatient (CLI) | payer BC, SELFPAY | PROVIDERS: Visit Provider Emergency Medicine | DX: S81.802A Unspecified open wound, left lower leg, initial encounter (principal) | CPT/HCPCS: 87070; 87077; 87186; 87205 ==

== ENCOUNTER 2019-05-21 08:00 | Outpatient (RCR) | payer BC, SELFPAY ==
--- NOTE | 2019-05-15 14:12 | HMH.PTOPEV ---
PT Outpatient Evaluation Rehab PT Outpatient Evaluation Start: 05/15/19 13:52 Freq: Status: Active Protocol: Document 05/15/19 13:53 NASLASHONDA (Rec: 05/15/19 14:12 PORSHA [id number]) Electronically Signed By Fran Douglas, PT 05/15/19 13:53 Outpatient Therapy Subjective History Subjective History Patient is a 43 year old male presenting to outpatient PT with reports of lumbar spine muscular weakness of insidous onset starting approximately 2 weeks ago. Pt reports hx of L5/S1 discectomy x 2 in 2002 and 2006. No reports of radicular symptoms at this time. No reports of pain at this time. Main complaint is lumbar spine spasms. Comorbidities include hx of CHF, BLE edema, [place] x 2, stent placement x 2, OA, hx of cholecystectomy and appendectomy. Chief Complaint Weakness Symptom Type Other Symptoms Relieved By Rest/Positioning Symptoms Aggravated By Physical Activity,Walking, Lifting Prior Functional Limitations None Current Functional Limitations Lifting,Housework,Standing, Recreation Activity,Walking, Bending/Stooping Symptom Description Activity Dependent Lumbopelvic Eval Posture Thoracic Spine Posture Standing Position Increased Kyphosis Lumbar Spine Posture Standing Position Decreased Lordosis Range of Motion Lumbar Spine Active Flexion Range of 0-10-85 Motion (degrees) Lumbar Spine Active Extension Range of 0 Motion (degrees) Left Lumbar Spine Lateral Flexion Active 22 Range of Motion (degrees) Right Lumbar Spine Lateral Flexion 25 Active Range of Motion (degrees) Lumbar Spine ROM Limitations Soft Tissue Tightness,Bony Restriction Manual Muscle Test Bilateral Knee Extension Strength Grade 5 Normal Knee Flexion Strength Grade 5 Normal Hip Flexion Strength Grade 5 Normal Hip Abduction Strength Grade 5 Normal Hip Adduction Strength Grade 5 Normal Extensor Hallucis Longus Strength Grade 5 Normal Ankle Dorsiflexion Strength Grade 5 Normal Gastronemius/Soleus Strength Grade 5 Normal DTR Rt Patellar 2+ Lt Patellar 2+ Rt Gastroc/Soleus 2+ Lt Gastroc/Soleus 2+ Special Tests Lumbar Spi
== END 2019-05-21 09:05 | disposition home or self-care (01) ==
LOC: PT 08:00
PROVIDERS: PCP Emergency Medicine; Visit Provider Emergency Medicine
DX: M54.16 Radiculopathy, lumbar region (principal)
CPT/HCPCS: 97010; 97014; 97033; 97035; 97163; G0283

== ENCOUNTER 2019-05-21 09:00 | Outpatient (RCR) | payer BC, SELFPAY ==
--- NOTE | 2019-05-15 16:31 | HMH.PTOPWND ---
Rehab Outpt Wound Evaluation Rehab OP Wound Evaluation Start: 05/15/19 16:19 Freq: Status: Active Protocol: Document 05/15/19 16:19 MARCO (Rec: 05/15/19 16:31 PHORMAYTE [id number]) Electronically Signed By Wilmer Pascual, PT 05/15/19 16:19 Subjective/History History History Pt is 43 yowm who presents with c/o B LE edema x ~ 4 wks with insidious onset of symptoms. He states, When I walk I get real bad burning in my hips and it goeas away as soon as I sit. He reports the edema does increase with propping of LE at night, but diruetic meds don't seem to help. He reports significant palpation tenderness to B lower legs. He reports hx of MT x 2, HTN, chronic LBP with lumbar discectomy x 2 at L5 and S1, CCY, appy, and he is a current smoker. He also presents with multiple small open sores on B lower legs in the gaitor area. Subjective Subjective Pain in lower legs 5/10 Wound Eval Wound Right Lower Leg Wound Type Stasis Ulcer Wound Bed Appearance Verdi,Yellow Percentage Granulated (%) 10 Percentage of Slough (%) 90 Wound Margins Description Indistinct Surrounding Tissue Appearance Verdi Edema Type Pitting Edema Degree 1+ Query Text:1+ Trace, Barely Detectable, Rebound 15-30 seconds 2+ Moderate, Slight Indentation, Rebound 10-20 seconds 3+ Deep, Deeper Indentation, Rebound > 30 seconds 4+ Very Deep, Rebound > 60 seconds Edema Appearance Weeping,Tight,Hard,Open Sores, Red Surrounding Tissue Temperature Warm Drainage Description Green Drainage Amount Moderate Drainage Odor No Odor Wound Topical Solution/Irrigant Saline Irrigant Primary Dressing Silver Dressing Comment opticell Ag Wound Secondary Dressing Type Non-Adherent Gauze Pad,Gauze Roll/Wrap,Adhering Gauze Roll Wound Debridement Method Gauze Wound Debridement Amount of Tissue Minimal Removed Lymphedema Eval Classification of Lymphedema Secondary Lymphedema Yes Stemmer's sign Stemmer's Sign
== END 2019-05-21 09:05 | disposition home or self-care (01) ==
LOC: PT 09:00
PROVIDERS: PCP Emergency Medicine; Visit Provider Emergency Medicine
DX: L81.9 Disorder of pigmentation, unspecified (principal)
CPT/HCPCS: 97140; 97163

== ENCOUNTER → 2019-05-29 17:19 | Outpatient (CLI) | payer BC, SELFPAY ==
[2019-05-29 18:05] LABS: Basophils % 0.7 % (0.1-2.0); Eosinophils # 0.1 K/mm3 (0.0-0.4); Eosinophils % 1.7 % (0.1-12.0); Hematocrit 32.5 % (42.0-52.0); Hemoglobin 11.2 g/dL (14.1-18.0); Lymphocytes % 31.4 % (10-50); Mean Corpuscular HGB Conc 34.4 g/dL (31.8-35.4); Mean Corpuscular Hemoglobin 31.2 pg (27.0-31.2); Mean Corpuscular Volume 90.6 fl (80-94); Mean Platelet Volume 7.6 fl (7.4-10.4); Monocytes # 0.3 K/mm3 (0.1-1.0); Monocytes % 4.6 % (1.7-9.3); Neutrophils # 3.9 K/mm3 (1.8-7.8); Neutrophils % 61.6 % (37.0-80.0); Platelet Count 300 K/mm3 (142-424); Red Blood Count 3.59 M/mm3 (4.60-6.20); White Blood Count 6.3 K/mm3 (4.8-10.8)
[2019-05-29 19:05] LABS: Chloride 97 mmol/L (98-107); Potassium 3.9 mmoL/L (3.5-5.1); Sodium 136 mmol/L (136-145)
[2019-05-29 19:08] LABS: Alanine Aminotransferase 13 U/L (12-78); Albumin Level 3.9 g/dl (3.5-5.0); Albumin/Globulin Ratio 1.5 (1.1-1.8); Alkaline Phosphatase 149 U/L (38-126); Anion Gap 10.9 mEq/L (5-15); Aspartate Amino Transferase 24 U/L (17-59); Bilirubin,Total 0.4 mg/dl (0.2-1.3); Blood Urea Nitrogen 10 mg/dl (9-20); Calcium 8.8 mg/dl (8.4-10.2); Carbon Dioxide 32 mmol/L (22.0-30.0); Estimated Glomerular Filt Rate 93 ml/min (>60); GFR (African American) 113 ML/MIN (>60); Globulin 2.6 g/dL (1.3-3.2); Glucose 89 mg/dl (74-100); Total Protein,Serum 6.5 g/dl (6.3-8.2)
[2019-05-29 19:25] LABS: T4 (Thyroxine) 9.9 ug/dl (5.53-11.0)
[2019-05-29 19:38] LABS: Thyroid Stimulating Hormone 4.54 uIU/mL (0.465-4.68)
[2019-05-31 05:37] LABS: HIV Screen 4th Generation wRfx Non Reactive (Non Reactive); Hep A Ab, IgM Negative (Negative); Hep A Ab, Total Negative (Negative); Hep B Core Ab, Total Negative (Negative)
[2019-05-31 07:03] LABS: Hep B Surface Ab, Qual Reactive (.); Hepatitis B Surface Antigen Negative (Negative); Hepatitis C Antibody <0.1 s/co ratio (0.0-0.9)
[2019-05-31 16:05] LABS: Anti-Centromere B Antibodies <0.2 AI (0.0-0.9); Anti-Jo-1 <0.2 AI (0.0-0.9); Anti-Smith Antibody <0.2 AI (0.0-0.9); Antichromatin Antibodies <0.2 AI (0.0-0.9); Antiscleroderma-70 Antibodies <0.2 AI (0.0-0.9); RNP Antibodies <0.2 AI (0.0-0.9); Sjogren's Anti-SS-A <0.2 AI (0.0-0.9); Sjogren's Anti-SS-B <0.2 AI (0.0-0.9)
[2019-05-31 16:06] LABS: Anti-DNA (DS) Ab Qn <1 IU/mL (0-9)
[2019-05-31 17:22] LABS: Peripheral Smear Review Scanned Result
== END ==
PROVIDERS: Visit Provider Physician Assistant
DX: E32.0 Persistent hyperplasia of thymus (principal); R16.1 Splenomegaly, not elsewhere classified
CPT/HCPCS: 36415; 80053; 84436; 84443; 85025; 85651; 86225; 86235; 86703; 86704; 86706; 86708; 87340; 87380; G0432

== ENCOUNTER → 2019-09-16 07:34 | Outpatient (CLI) | payer BC, SELFPAY ==
--- NOTE | 2019-09-16 07:54 | MR_ITS ---
PROCEDURE: MR LUMBAR SPINE WO CON CLINICAL INDICATION: Neurogenic claudication Bilateral leg pain with frequent falling difficulty walking COMPARISON: No exams were available for comparison TECHNIQUE: Standard multiplanar multiecho sequences are performed without contrast. 3-D MIP and myelographic images are also rendered and reviewed FINDINGS: There is normal alignment. Spinal cord ends at the T12-L1 level. L1-L2: Mild bulging disc. Mild degenerative disc disease. L2-L3: Mild facet and ligamentum hypertrophy L3-L4: Mild facet and ligamentum hypertrophy. L4-5: Bulging disc with a small broad-based central disc protrusion very slightly eccentric toward the right along with facet and ligamentum hypertrophy with bilateral lateral recess narrowing and mild bilateral foraminal narrowing. L5-S1: Degenerative disc disease with bulging disc both anteriorly and posteriorly with endplate osteophytes along with moderate facet and ligamentum hypertrophy with moderate bilateral foraminal narrowing. IMPRESSION: 1. Lumbar spondylosis as detailed above. 2. L4-5: Bulging disc with a small broad-based central disc protrusion very slightly eccentric toward the right along with facet and ligamentum hypertrophy with bilateral lateral recess narrowing and mild bilateral foraminal narrowing. 3. L5-S1: Degenerative disc disease with bulging disc both anteriorly and posteriorly with endplate osteophytes along with moderate facet and ligamentum hypertrophy with moderate bilateral foraminal narrowing. Dictated by: Adi Carroll MD 09/16/2019 14:25 Electronically signed by Adi Carroll MD in [place] 09/16/2019 14:25
--- NOTE | 2019-09-16 09:19 | XR_ITS ---
PROCEDURE: XR ELBOW LT MIN 3V CLINICAL INDICATION: fall, posterior elbow pain COMPARISON: No exams were available for comparison FINDINGS: No fracture or dislocation. No lytic or blastic change. There is normal mineralization. The joint spaces are well-preserved. No significant degenerative/arthritic changes. No erosive changes evident. There is mild diffuse soft tissue swelling over the tip of the olecranon. Other findings:None. IMPRESSION: Negative for acute fracture. Dictated by: Dr. Oscar Luna MD 09/16/2019 09:[address] Oscar Luna MD in [place] 09/16/2019 09:43
== END ==
PROVIDERS: PCP Emergency Medicine; Visit Provider Physician Assistant
DX: M48.062 Spinal stenosis, lumbar region with neurogenic claudication (principal); R26.2 Difficulty in walking, not elsewhere classified; M25.522 Pain in left elbow
CPT/HCPCS: 72148; 73080; 76376

== ENCOUNTER 2019-10-24 08:30 | Outpatient (RCR) | payer BC, SELFPAY ==
--- NOTE | 2019-10-15 10:09 | HMH.PTOPEV ---
PT Outpatient Evaluation Rehab PT Outpatient Evaluation Start: 10/15/19 08:16 Freq: Status: Active Protocol: Document 10/15/19 09:38 MARCO (Rec: 10/15/19 10:09 MARCO [id number]) Electronically Signed By Wilmer Pascual, PT 10/15/19 09:38 Outpatient Therapy Plan of Care Treatment Plan May Include Therapeutic Exercise Including Home Yes Exercise Program Manual Therapy Techniques Yes Neuromuscular Re-education Yes Therapeutic Activities to Return to Yes Previous Functional/Work Level Gait Training Yes Orthotics/Bracing/Splinting Yes Manual Lymphatic Drainage Yes Wound Care Yes Eval/Re-Eval Yes Frequency Times per week 2 Duration Number of Weeks 8 Addendums This patient is a candidate for social Yes or vocational rehab? Patient/Guardian verbally acknowledges Yes understanding of treatment program and consents to further treatment? Patient/Guardian verbally acknowledges Yes understanding of diagnosis, prognosis and goals for treatment? G -code Required No Eval Complexity PT Charges 29718 - High Complexity Outpatient Therapy Subjective History Subjective History Pt is 44 yowm who presents with c/o frequent falls, difficulty walking x ~ 3-4 mos with insidious onset of symptoms. Pt states, I just woke up one morning in May and I didn't feel right. He c/o weakness an inability to reach upright standing position and is now using a rolling walker for ambulation. He has further c/o numbness in B hands and R foot (monofilament sensation testing was WNL throughout all hands and feet this date). He has hx of L5/S1 laminectomy with discectomy x 2 per his report. He had MRI performed which shows disc bulges at L1- 2, L4-5, and L5-S1. He reports no c/o pain during this episode of symptoms. TWIN: R LE = 0.89, L LE= 0.83. PMH: CAD, HTN, NH, HL, appy, CCY, heart cath with stent, PAD. Chief Complaint Stiff,Weakness Symptoms Relieved By Nothing
--- NOTE | 2019-10-15 10:09 | HMH.PTOPWND ---
Rehab Outpt Wound Evaluation Rehab OP Wound Evaluation Start: 10/15/19 08:16 Freq: Status: Active Protocol: Document 10/15/19 09:38 MARCO (Rec: 10/15/19 10:09 MARCO [id number]) Electronically Signed By Wilmer Pascual, PT 10/15/19 09:38 Subjective/History History History Pt is 44 yowf who presents with c/o B LE edema x 3-4 mos with insidious onset of symptoms. He reports mild tenderness to palpation and edema increased throughout the day. He has hx of CAD, PAD, HTN, SD, HL and smoking. TWIN: R LE= 0.89, L LE= 0.83. Subjective Subjective Pt reports no c/o pain currently. Lymphedema Eval Classification of Lymphedema Secondary Lymphedema Yes Stemmer's sign Stemmer's Sign no Stage of Lymphedema Lymphedema stages Stage I (Pitting edema, reduces w/ elevation, no fibrosis) Skin Changes Dry Skin Yes Redness Yes Wounds Yes Discoloration of Skin Yes Other Changes Yes Pain Scale Pain Scale (0-10) 0 Affected Extremities Areas Affected by Lymphedema/Edema Right Lower Extremity,Left Lower Extremity Lower Extremity Measurements Left MTP Measurement (cm) 24.5 Heel Measurement (cm) 36.0 10 cm Proximal to Lateral Malleoli 28.2 Measurement (cm) 20 cm Proximal to Lateral Malleoli 33.0 Measurement (cm) 30 cm Proximal to Lateral Malleoli 42.2 Measurement (cm) 40 cm Proximal to Lateral Malleoli 39.0 Measurement (cm) 50 cm Proximal to Lateral Malleoli 0 Measurement (cm) 60 cm Proximal to Lateral Malleoli 0 Measurement (cm) Lower Extremity Measurement Total (cm) 202.9 Right MTP Measurement (cm) 24.8 Heel Measurement (cm) 35.8 10 cm Proximal to Lateral Malleoli 27.9 Measurement (cm) 20 cm Proximal to Lateral Malleoli 34.3 Measurement (cm) 30 cm Proximal to Lateral Malleoli 42.5 Measurement (cm) 40 cm Proximal to Lateral Malleoli 40.8 Measurement (cm) 50 cm Proximal to Lateral Malleoli 0 Measurement (cm) 60 cm Proximal to Lateral Malleoli 0 Measurement (cm) Lower Extremity Measurement Total (cm) 206.1 Manual Lymphatic Drainage Treatment Area MLD Treatment Area
== END 2019-10-24 08:35 | disposition home or self-care (01) ==
LOC: PT 08:30
PROVIDERS: PCP Emergency Medicine; Visit Provider Physician Assistant
DX: R60.0 Localized edema (principal); M62.81 Muscle weakness (generalized); M51.27 Other intervertebral disc displacement, lumbosacral region; R29.6 Repeated falls
CPT/HCPCS: 97110; 97140; 97163

== ENCOUNTER → 2019-10-24 09:25 | Outpatient (CLI) | payer BC, SELFPAY ==
--- NOTE | 2019-10-24 | MM_ITS ---
PROCEDURE: MM DIG MAMM BI DX W/CAD Digital Breast Tomosynthesis Included CLINICAL INDICATION: Swelling and some tenderness circumareolar region right breast for 1 year COMPARISON: No exams were available for comparison TECHNIQUE: Standard CC and MLO images and 3D Tomosynthesis was obtained. R2 CAD reviewed. FINDINGS: There are accentuated ductal and glandular elements in the subareolar region right breast when compared to the left breast which appears entirely normal. There are no suspicious microcalcifications either breast. There couple of tiny benign-appearing microcalcifications in each breast. Ultrasound performed the same date showed findings compatible with gynecomastia right breast, limited ultrasound scanning left breast showed no abnormality. IMPRESSION: Probable gynecomastia right breast and recommend short-term six-month follow-up to evaluate for interval stability BI-RAD Category: 3 Probably Benign Finding Short Term Follow-up FOLLOW-UP: 6M 6Month Follow-up (A letter has been sent to the patient regarding results of the study.) Dictated by: Dr. Oscar Luna MD 10/24/2019 11:[address] Oscar Luna MD in [place] 10/24/2019 11:53
--- NOTE | 2019-10-24 09:25 | US_ITS ---
PROCEDURE: US BREAST RT COMPLETE CLINICAL INDICATION: Right breast mass COMPARISON: No exams were available for comparison FINDINGS: There is an area of irregular decreased echogenicity just deep to the nipple right breast and the appearance is consistent with mild gynecomastia. Limited scanning deep to the nipple left breast show no abnormality. IMPRESSION: Probable mild gynecomastia right breast and suggest six-month follow-up ultrasound to be performed at the same time of the six-month follow-up mammogram to evaluate for interval stability Dictated by: Dr. Oscar Luna MD 10/24/2019 11:[address] Oscar Luna MD in [place] 10/24/2019 11:56
== END ==
PROVIDERS: PCP Emergency Medicine; Visit Provider Physician Assistant
DX: N63.41 Unspecified lump in right breast, subareolar (principal)
CPT/HCPCS: 76641; 77062; 77066; G0279

== ENCOUNTER → 2020-01-29 13:05 | Outpatient (CLI) | payer BC, SELFPAY ==
--- NOTE | 2020-01-29 13:06 | CA_ITS ---
APPROVED REPORT Bilateral Lower Extremity Venous Study for DVT. Resolution Expert: Amanda Allan RVT Indications Lower Extremity Edema: Bilateral Stasis Disease Current Smoker CAD to rule out DVT Risk Factors Cardiac Disease Current Smoker CAD Medications Plavix Vein Imaging CFV (R): compressive, spontaneous, phasic, augmentation FEM (R): compressive, spontaneous, phasic, augmentation POP (R): compressive, spontaneous, phasic, augmentation PTV (R): Compressible GSV (R): Compressible Peroneals (R):Compressible GAS (R): Compressible CFV (L): compressive, spontaneous, phasic, augmentation FEM (L): compressive, spontaneous, phasic, augmentation POP (L): compressive, spontaneous, phasic, augmentation PTV (L): Compressible GSV (L): Compressible Peroneals (L):Compressible GAS (L): Compressible Findings Study suggests no evidence of DVT in the bilateral lower extremities. Study suggests no evidence of SVT of the bilateral lower extremities. Conclusion Study suggests no evidence of DVT in the bilateral lower extremities. Study suggests no evidence of SVT of the bilateral lower extremities. Electronically signed by : Adi Carroll MD 01/30/2020 17:22:05
== END ==
PROVIDERS: PCP Emergency Medicine; Visit Provider Internal Medicine Cardiovascular Disease
DX: R60.0 Localized edema (principal); M79.662 Pain in left lower leg; M79.661 Pain in right lower leg
CPT/HCPCS: 93970

== ENCOUNTER → 2020-02-26 12:19 | Outpatient (CLI) | payer BC, SELFPAY ==
[2020-02-26 14:11] LABS: Chloride 99 mmol/L (98-107); Sodium 134 mmol/L (136-145)
[2020-02-26 14:12] LABS: Potassium 4.5 mmoL/L (3.5-5.1)
[2020-02-26 14:14] LABS: Blood Urea Nitrogen 16 mg/dl (9-20); Estimated Glomerular Filt Rate 106 ml/min (>60); GFR (African American) 128 ML/MIN (>60)
[2020-02-26 14:15] LABS: Anion Gap 9.5 mEq/L (5-15); Calcium 8.8 mg/dl (8.4-10.2); Carbon Dioxide 30 mmol/L (22.0-30.0); Glucose 115 mg/dl (74-100)
== END ==
PROVIDERS: Visit Provider Internal Medicine Cardiovascular Disease
DX: E78.2 Mixed hyperlipidemia (principal); I11.9 Hypertensive heart disease without heart failure; I25.10 Atherosclerotic heart disease of native coronary artery without angina pectoris; R53.83 Other fatigue; R60.9 Edema, unspecified; R94.30 Abnormal result of cardiovascular function study, unspecified; Z72.0 Tobacco use
CPT/HCPCS: 36415; 80048

== ENCOUNTER → 2020-03-10 15:07 | Outpatient (CLI) | payer BC, SELFPAY | PROVIDERS: PCP Emergency Medicine; Visit Provider Internal Medicine Cardiovascular Disease | DX: G47.30 Sleep apnea, unspecified (principal); R06.83 Snoring; R40.0 Somnolence; R53.83 Other fatigue; R94.30 Abnormal result of cardiovascular function study, unspecified; R60.9 Edema, unspecified; I11.9 Hypertensive heart disease without heart failure | CPT/HCPCS: G0399 ==

== ENCOUNTER → 2020-04-21 13:54 | Outpatient (POV) | payer BC, SELFPAY | DX: Z00.00 Encounter for general adult medical examination without abnormal findings (principal) ==

== ENCOUNTER → 2020-07-29 18:11 | Outpatient (CLI) | payer BC, SELFPAY ==
[2020-07-29 19:01] LABS: Chloride 98 mmol/L (98-107); Sodium 133 mmol/L (136-145)
[2020-07-29 19:02] LABS: Potassium 4.2 mmoL/L (3.5-5.1)
[2020-07-29 19:04] LABS: Blood Urea Nitrogen 16 mg/dl (9-20); Estimated Glomerular Filt Rate 124 ml/min (>60); GFR (African American) 150 ML/MIN (>60)
[2020-07-29 19:05] LABS: Anion Gap 10.2 mEq/L (5-15); Calcium 8.5 mg/dl (8.4-10.2); Carbon Dioxide 29 mmol/L (22.0-30.0); Glucose 123 mg/dl (74-100)
== END ==
PROVIDERS: Nurse Practitioner Family; Visit Provider Internal Medicine Cardiovascular Disease
DX: I10 Essential (primary) hypertension (principal)
CPT/HCPCS: 36415; 80048

== ENCOUNTER → 2020-09-20 13:33 | Outpatient (CLI) | payer BC, SELFPAY ==
[2020-09-20 14:18] LABS: Prostate Specific Ag Screen 0.2 ng/ml (0.0-4.0)
== END ==
PROVIDERS: Visit Provider Emergency Medicine
DX: Z12.5 Encounter for screening for malignant neoplasm of prostate (principal)
CPT/HCPCS: G0103

== ENCOUNTER → 2020-11-02 18:48 | Outpatient (CLI) | payer BC, SELFPAY | PROVIDERS: Visit Provider Family Medicine | DX: S91.301A Unspecified open wound, right foot, initial encounter (principal) | CPT/HCPCS: 87070; 87077; 87186; 87205 ==

== ENCOUNTER → 2020-11-09 16:31 | Outpatient (CLI) | payer BC, SELFPAY ==
--- NOTE | 2020-11-09 16:36 | XR_ITS ---
PROCEDURE: XR FOOT RT MIN 3V CLINICAL INDICATION: evaluate for osteo Pain, wound anterior distal foot COMPARISON: No exams were available for comparison FINDINGS: No fracture or dislocation. No lytic or blastic change. There is normal mineralization. The joint spaces are well-preserved. No significant degenerative/arthritic changes. No erosive changes evident. Other findings:No radiopaque foreign body. IMPRESSION: No acute findings. Dictated by: Adi Carroll MD 11/09/2020 17:22 Adi Carroll MD in [place] 11/09/2020 17:22
== END ==
PROVIDERS: PCP Emergency Medicine; Visit Provider Family Medicine
DX: S91.301A Unspecified open wound, right foot, initial encounter (principal)
CPT/HCPCS: 73630

== ENCOUNTER → 2020-12-01 16:17 | Outpatient (CLI) | payer BC, SELFPAY ==
[2020-12-01 17:12] LABS: Basophils # 0.1 K/mm3 (0-0.2); Basophils % 0.7 % (0.1-2.0); Eosinophils # 0.1 K/mm3 (0.0-0.4); Eosinophils % 1.7 % (0.1-12.0); Hemoglobin 10.4 g/dL (14.1-18.0); Lymphocytes # 1.4 K/mm3 (0.7-4.5); Lymphocytes % 21.5 % (10-50); Mean Corpuscular HGB Conc 31.5 g/dL (31.8-35.4); Mean Corpuscular Hemoglobin 31.3 pg (27.0-31.2); Mean Corpuscular Volume 99.5 fl (80-94); Mean Platelet Volume 8.5 fl (7.4-10.4); Monocytes # 0.3 K/mm3 (0.1-1.0); Monocytes % 4.8 % (1.7-9.3); Neutrophils # 4.7 K/mm3 (1.8-7.8); Neutrophils % 71.3 % (37.0-80.0); Platelet Count 362 K/mm3 (142-424); Red Blood Count 3.32 M/mm3 (4.60-6.20); Red Cell Distribution Width 15.9 % (11.5-17.5); White Blood Count 6.6 K/mm3 (4.8-10.8)
[2020-12-01 19:12] LABS: Alanine Aminotransferase 12 U/L (12-78); Albumin Level 3.4 g/dl (3.5-5.0); Albumin/Globulin Ratio 1.3 (1.1-1.8); Alkaline Phosphatase 118 U/L (38-126); Anion Gap 12.6 mEq/L (5-15); Aspartate Amino Transferase 20 U/L (17-59); Blood Urea Nitrogen 15 mg/dl (9-20); Calcium 8.3 mg/dl (8.4-10.2); Carbon Dioxide 28 mmol/L (22.0-30.0); Chloride 100 mmol/L (98-107); Estimated Glomerular Filt Rate 123 ml/min (>60); GFR (African American) 149 ML/MIN (>60); Globulin 2.7 g/dL (1.3-3.2); Glucose 89 mg/dl (74-100); Potassium 4.6 mmoL/L (3.5-5.1); Sodium 136 mmol/L (136-145); Total Protein,Serum 6.1 g/dl (6.3-8.2)
[2020-12-01 19:17] LABS: C-Reactive Protein 14.7 mg/L (0-4)
[2020-12-01 19:21] LABS: Bilirubin,Total 0.1 mg/dl (0.2-1.3)
[2020-12-01 21:32] LABS: Erythrocyte Sedimentation Rate 54 mm/hr (0-15)
== END ==
PROVIDERS: Visit Provider Nurse Practitioner
DX: S91.301A Unspecified open wound, right foot, initial encounter (principal)
CPT/HCPCS: 36415; 80053; 85025; 85651; 86140

== ENCOUNTER → 2020-12-17 16:49 | Outpatient (CLI) | payer BC, SELFPAY ==
--- NOTE | 2020-12-17 16:57 | XR_ITS ---
PROCEDURE INFORMATION: Exam: XR Left Foot Complete; Alignment Exam date and time: 12/17/2020 4:57 PM Age: 45 years old Clinical indication: Pain; Foot; Left; Additional info: Foot pain TECHNIQUE: Imaging protocol: XR Left foot. Views: 3 or more views. COMPARISON: CA VENOUS DOPPLER LE BI 01/29/2020 1:13 PM FINDINGS: Bones/joints: Mild degenerative changes in midfoot. This appears worst at the talonavicular joint. No fracture. No malalignment. Soft tissues: Mild swelling of the anterior ankle soft tissues. Material projects over the dorsal soft tissues. IMPRESSION: Mild degenerative changes in the midfoot
--- NOTE | 2020-12-17 16:57 | XR_ITS ---
PROCEDURE INFORMATION: Exam: XR Right Foot Complete; Alignment Exam date and time: 12/17/2020 4:57 PM Age: 45 years old Clinical indication: Pain; Foot; Right; Additional info: Foot pain TECHNIQUE: Imaging protocol: XR Right foot. Views: 3 or more views. COMPARISON: CR XR FOOT RT MIN 3V 11/09/2020 4:55 PM FINDINGS: Bones/joints: Mild degenerative changes in midfoot. This appears worst at the talonavicular joint. No fracture. No malalignment. Soft tissues: Mild swelling of the anterior ankle soft tissues. Material projects over the dorsal soft tissues. IMPRESSION: Mild degenerative changes in the midfoot similar to the contralateral foot
[2020-12-17 17:07] LABS: Basophils # 0.1 K/mm3 (0-0.2); Basophils % 0.9 % (0.1-2.0); Eosinophils # 0.1 K/mm3 (0.0-0.4); Eosinophils % 1.8 % (0.1-12.0); Hematocrit 36.7 % (42.0-52.0); Hemoglobin 11.9 g/dL (14.1-18.0); Lymphocytes # 2.1 K/mm3 (0.7-4.5); Lymphocytes % 31.2 % (10-50); Mean Corpuscular HGB Conc 32.3 g/dL (31.8-35.4); Mean Corpuscular Hemoglobin 30.7 pg (27.0-31.2); Mean Platelet Volume 8.9 fl (7.4-10.4); Monocytes # 0.4 K/mm3 (0.1-1.0); Monocytes % 5.7 % (1.7-9.3); Neutrophils % 60.3 % (37.0-80.0); Platelet Count 224 K/mm3 (142-424); Red Blood Count 3.87 M/mm3 (4.60-6.20); Red Cell Distribution Width 15.2 % (11.5-17.5); White Blood Count 6.6 K/mm3 (4.8-10.8)
[2020-12-17 18:13] LABS: Alanine Aminotransferase 16 U/L (12-78); Albumin Level 3.7 g/dl (3.5-5.0); Albumin/Globulin Ratio 1.3 (1.1-1.8); Alkaline Phosphatase 119 U/L (38-126); Anion Gap 11.5 mEq/L (5-15); Aspartate Amino Transferase 20 U/L (17-59); Bilirubin,Total 0.2 mg/dl (0.2-1.3); Blood Urea Nitrogen 14 mg/dl (9-20); Calcium 8.8 mg/dl (8.4-10.2); Carbon Dioxide 29 mmol/L (22.0-30.0); Chloride 97 mmol/L (98-107); Estimated Glomerular Filt Rate 123 ml/min (>60); GFR (African American) 149 ML/MIN (>60); Globulin 2.8 g/dL (1.3-3.2); Glucose 106 mg/dl (74-100); Potassium 4.5 mmoL/L (3.5-5.1); Sodium 133 mmol/L (136-145); Total Protein,Serum 6.5 g/dl (6.3-8.2)
[2020-12-17 18:20] LABS: C-Reactive Protein 6.4 mg/L (0-4)
[2020-12-17 23:40] LABS: Erythrocyte Sedimentation Rate 18 mm/hr (0-15)
== END ==
PROVIDERS: Visit Provider Nurse Practitioner
DX: S91.301A Unspecified open wound, right foot, initial encounter (principal); Z51.89 Encounter for other specified aftercare
CPT/HCPCS: 36415; 73630; 80053; 85025; 85651; 86140

== ENCOUNTER → 2021-05-10 16:33 | Outpatient (CLI) | payer BC, SELFPAY | PROVIDERS: Visit Provider Podiatrist | DX: S91.001A Unspecified open wound, right ankle, initial encounter (principal); Z51.89 Encounter for other specified aftercare | CPT/HCPCS: 87070; 87077; 87186; 87205 ==

== ENCOUNTER → 2021-05-17 13:55 | Outpatient (CLI) | payer BC, SELFPAY ==
--- NOTE | 2021-05-17 13:56 | US_ITS ---
FINAL REPORT CLINICAL HISTORY: ULCERS MEDIAL BILATERAL FEET,SMOKER,HTN,CAD,PURPLE DISCOLORATION BILATERAL FEET FINDINGS: ANKLE-BRACHIAL PRESSURE INDICES Pressure indices are as follows: RIGHT LOWER EXTREMITY: Ankle-brachial pressure index: 0.94 Comments: Normal LEFT LOWER EXTREMITY: Ankle-brachial pressure index: 1.02 Comments: Normal CONCLUSION: No evidence of significant obstructive peripheral vascular disease of the lower extremities Reviewed, Interpreted and Dictated by Sabino Scott III, MD Transcribed by Nallely Garvin Authenticated by Sabino Scott III, MD on 05/17/2021 04:13:21 PM [facility]
== END ==
PROVIDERS: PCP Emergency Medicine; Visit Provider Podiatrist
DX: L97.521 Non-pressure chronic ulcer of other part of left foot limited to breakdown of skin (principal); L97.411 Non-pressure chronic ulcer of right heel and midfoot limited to breakdown of skin; Z51.89 Encounter for other specified aftercare
CPT/HCPCS: 93923

== ENCOUNTER 2021-06-02 17:33 | Inpatient (IN) | payer BC, SELFPAY ==
[2021-06-02 17:34] VITALS: BP 105/47; PULSE 88; RESP 22; TEMP 37.8; O2SAT 92; BMI 27.5
--- NOTE | 2021-06-02 18:05 | XR_ITS ---
PROCEDURE INFORMATION: Exam: XR Chest Exam date and time: 06/02/2021 6:05 PM Age: 45 years old Clinical indication: Other: Weakness TECHNIQUE: Imaging protocol: XR of the chest. Views: 1 view. COMPARISON: CT CHEST WO CON 05/26/2019 6:19 PM FINDINGS: Lungs: No acute airspace consolidation. Small calcified granuloma in the mid left lung. Pleural spaces: Unremarkable. No pleural effusion. No pneumothorax. Heart/Mediastinum: Unremarkable. No cardiomegaly. Bones/joints: Unremarkable. IMPRESSION: No acute findings.
--- NOTE | 2021-06-02 18:09 | ECG_ITS ---
APPROVED REPORT Exam: Resting ECG HR:75 bpm ECG Measurements Heart Rate 75 AXES MA 122 P 73 QRSd 98 QRS 100 QT 389 T -60 QTc 417 Conclusion SINUS RHYTHM BORDERLINE RIGHT AXIS DEVIATION [QRS AXIS > 90] ST DEVIATION AND MODERATE T-WAVE ABNORMALITY, CONSIDER ANTEROLATERAL ISCHEMIA [-0.1+ mV T-WAVE IN V3-V6] ST DEVIATION AND MODERATE T-WAVE ABNORMALITY, CONSIDER INFERIOR ISCHEMIA [-0.1+ mV T-WAVE IN II/aVF] ABNORMAL ECG UNCONFIRMED REPORT Electronically signed by : Brian Vanessa MD 06/03/2021 19:20:45
[2021-06-02 18:40] LABS: Basophils % 0.5 % (0.1-2.0); Eosinophils # 0.1 K/mm3 (0.0-0.4); Eosinophils % 1.8 % (0.1-12.0); Hematocrit 22.8 % (42.0-52.0); Lymphocytes # 0.9 K/mm3 (0.7-4.5); Mean Corpuscular HGB Conc 30.4 g/dL (31.8-35.4); Mean Corpuscular Hemoglobin 25.9 pg (27.0-31.2); Mean Corpuscular Volume 85.4 fl (80-94); Mean Platelet Volume 8.8 fl (7.4-10.4); Monocytes # 0.3 K/mm3 (0.1-1.0); Monocytes % 6.2 % (1.7-9.3); Neutrophils # 3.7 K/mm3 (1.8-7.8); Neutrophils % 73.5 % (37.0-80.0); Platelet Count 191 K/mm3 (142-424); Red Blood Count 2.67 M/mm3 (4.60-6.20); Red Cell Distribution Width 16.7 % (11.5-17.5)
[2021-06-02 18:41] LABS: Alanine Aminotransferase 17 U/L (12-78); Albumin Level 3.1 g/dl (3.5-5.0); Albumin/Globulin Ratio 1.2 (1.1-1.8); Alkaline Phosphatase 89 U/L (38-126); Anion Gap 7.8 mEq/L (5-15); Aspartate Amino Transferase 36 U/L (17-59); Bilirubin,Total 0.7 mg/dl (0.2-1.3); Blood Urea Nitrogen 12 mg/dl (9-20); Calcium 7.7 mg/dl (8.4-10.2); Carbon Dioxide 31 mmol/L (22.0-30.0); Chloride 92 mmol/L (98-107); Creatinine Clearance Estimated 113 mL/min (50-200); Estimated Glomerular Filt Rate 73 ml/min (>60); GFR (African American) 88 ML/MIN (>60); Globulin 2.6 g/dL (1.3-3.2); Glucose 93 mg/dl (74-100); Sodium 128 mmol/L (136-145); Total Protein,Serum 5.7 g/dl (6.3-8.2)
[2021-06-02 18:42] LABS: Hemoglobin 6.9 g/dL (14.1-18.0)
[2021-06-02 18:43] LABS: Potassium 2.8 mmoL/L (3.5-5.1)
[2021-06-02 18:48] VITALS: BMI 25.1
--- NOTE | 2021-06-02 18:48 | HMH.EDGENADL ---
ED Disposition Clinical Impression: Hypokalemia Anemia Qualifiers: Anemia type: unspecified type Qualified Code(s): D64.9 - Anemia, unspecified Disposition: Admitted As Inpatient Condition on Discharge: Fair - Critical Care Critical Care Time: No Attestation: On 06/02/21, the high probability of a clinically significant, sudden or life threatening deterioration of the following system(s) required my full and direct attention, intervention and personal management. The time I documented below is in addition to time spent performing reported procedures but includes the following listed in this critical care notation. Medical Decision Making - Juan C Inquiry Pt receiving controlled substance: No Vital Signs: 06/02/21 17:34 Temperature 100.1 F H Temperature Source Oral Pulse Rate [Radial] 88 Respiratory Rate 22 Blood Pressure [Right Arm] 105/47 L Blood Pressure Mean [Right Arm] 66 Blood Pressure Position [Right Arm] Sitting 02 Sat by Pulse Oximetry 92 L Oxygen Delivery Method Room Air - Lab Data Lab Results 06/02/21 18:15: WBC 5.0, RBC 2.67 L, Hgb 6.9 L, Hct 22.8 L, MCV 85.4, MCH 25.9 L, MCHC 30.4 L, RDW 16.7, Plt Count 191, MPV 8.8, Neut % (Auto) 73.5, Lymph % (Auto) 18.0, Russell % (Auto) 6.2, Eos % (Auto) 1.8, Baso % (Auto) 0.5, Neut # (Auto) 3.7, Lymph # (Auto) 0.9, Russell # (Auto) 0.3, Eos # (Auto) 0.1, Baso # (Auto) 0.0 06/02/21 18:15: Sodium 128 L, Potassium 2.8 L*, Chloride 92 L, Carbon Dioxide 31 H, Anion Gap 7.8, BUN 12, Creatinine 1.10, Estimated Creat Clear 113, Estimated GFR 73, Est GFR ( Amer) 88, Glucose 93, Calcium 7.7 L, Total Bilirubin 0.7, AST 36, ALT 17, Alkaline Phosphatase 89, Troponin I < 0.01, Total Protein 5.7 L, Albumin 3.1 L, Globulin 2.6, Albumin/Globulin Ratio 1.2 06/02/21 18:15: Lactate 1.0 06/02/21 18:44: SARS-CoV-2 (PCR) Not detected, Influenza A Untype (PCR) Not detected, Influenza Type B (PCR) Not detected 06/02/21 18:45: Stool Occult Blood Negative 06/02/21 19:15: Blood Type O Positive, Crossmatch (AHG) See Detail Result diagrams: 06/02/21 18:15 06/02/21 18:15 Orders (Tests/Meds): ED MEDICATIONS Generic Name Dose Route Start Last Admin Trade Name Freq PRN Reason Stop Dose Admin Sodium Chloride 250 mls @ 25 mls/hr 06/02/21 19:00 Sod Chlor 0.9% 250ml Bag IV 06/03/21 18:59 .Q10H WON Miscellaneous 1 each 06/02/21 20:00 Vancomycin Consult Request * 07/02/21 19:59 CONSULT PHARMACY WON Discontinued Medications Generic Name Dose Route Start Last Admin Trade Name Freq PRN Reason Stop Dose Admin Potassium Chloride 40 meq 06/02/21 18:53 Potassium Chloride 20meq Tab PO 06/02/21 18:54 ONCE ONE ORDERS Category Date Time Status PRBC [Red Blood Cells] Stat BBK 06/02/21 19:15 Results Type and Screen Stat BBK 06/02/21 19:15 Results Ferritin Routine Lab 06/02/21 18:15 Received Iron and TIBC Routine Lab 06/02/21 18:15 Received Troponin I Q3H Lab 06/02/21 21:15 Ordered Troponin I Q3H Lab 06/03/21 00:15 Ordered Urinalysis and Microscopic Stat Lab 06/02/21 18:25 Ordered Vitamin B12 Routine Lab 06/02/21 18:15 Received Blood Culture Stat Micro 06/02/21 18:15 Received - ECG Data Tracing #1 EKG interpreted by Hesham Champion MD: Rhythm: sinus Rate: 75 [place]: normal Ectopy: none Conduction: normal ST Segment Changes: Inferior lateral T Wave Changes: Inferior lateral Q Waves: none No evidence of acute ischemia or injury - Physician Consults Physician Consulted: Thomas Time: 19:30 Reason -: Admission Comment/Response: Agrees to admit the patient to the hospital. We discussed the patient's clinical information, including history, exam, laboratory and radiology results and ED course. Per hospital procedure, I will write temporary bridge inpatient orders on the patient. Specific orders requested by the admitting physician: Transfuse, replace potassium Medical Decision Narrative: Discussed with Dr. Perez
[2021-06-02 18:53] LABS: Troponin I < 0.01 ng/ml (0.00-0.034)
[2021-06-02 18:54] LABS: Occult Blood,Stool Negative (Negative)
[2021-06-02 19:03] LABS: Coronavirus 19, PCR Not Detected (NotDetected); Influenza A, PCR Not Detected (NotDetected); Influenza B, PCR Not Detected (NotDetected)
[2021-06-02 20:07] LABS: Iron 25 ug/dL (49-181)
[2021-06-02 20:19] VITALS: BP 105/44; PULSE 80; RESP 16; TEMP 36.9; O2SAT 95; BMI 25.1
[2021-06-02 20:29] VITALS: BP 124/85; PULSE 79; RESP 18; TEMP 36.7; O2SAT 99
--- NOTE | 2021-06-02 20:41 | PC.NURSE ---
PATIENT UP TO FLOOR VIA STRETCHER @ THIS TIME.
--- NOTE | 2021-06-02 20:54 | HMH.PHAVTE ---
[facility] Pharmacy VTE Monitoring - Patient Demographics Admission date: 06/02/21 Report Date: 06/02/21 Time: 20:54 Allergies/Adverse Reactions: Patient Allergies cephalexin [From Keflex] Allergy (Verified 05/10/21 11:01) ciprofloxacin [From Cipro] Allergy (Verified 05/10/21 11:01) tramadol Allergy (Verified 05/10/21 11:01) Height: 1.83 m Weight: 92.079 kg Patient Problems: Current Active Problems Anemia (Acute) Hypokalemia (Acute) - VTE Risk Labs: VTE Related Lab Results Hgb 6.9 g/dL (14.1-18.0) L 06/02/21 18:15 Hct 22.8 % (42.0-52.0) L 06/02/21 18:15 Plt Count 191 K/mm3 (142-424) 06/02/21 18:15 BUN 12 mg/dl (9-20) 06/02/21 18:15 Creatinine 1.10 mg/dl (0.66-1.25) 06/02/21 18:15 Estimated Creat Clear 113 mL/min (50-200) 06/02/21 18:15 Clinical Trial Participant: No - Prophylaxis VTE Prophylaxis Ordered?: Yes Types of VTE Prophylaxis: TEDS Knee High
[2021-06-02 21:00] LABS: Vitamin B12 505 pg/mL (239-931)
[2021-06-02 21:43] LABS: Total Iron Binding Capacity 305 ug/dL (261-462)
[2021-06-02 22:00] VITALS: O2SAT 90
[2021-06-02 22:10] LABS: Ferritin 45.8 ng/ml (17.9-464)
[2021-06-02 23:54] VITALS: BP 113/53; PULSE 76; RESP 17; TEMP 36.9; O2SAT 90
[2021-06-03] VITALS (28 sets, daily range): BP systolic 97–139; BP diastolic 50–108; PULSE 67–83; RESP 16–22; TEMP 36–37.4; O2SAT 84–96; BMI 25.0
[2021-06-03 06:30] LABS: Chloride 92 mmol/L (98-107); Potassium 3.4 mmoL/L (3.5-5.1); Sodium 126 mmol/L (136-145)
[2021-06-03 06:33] LABS: Anion Gap 9.4 mEq/L (5-15); Blood Urea Nitrogen 14 mg/dl (9-20); Calcium 7.1 mg/dl (8.4-10.2); Carbon Dioxide 28 mmol/L (22.0-30.0); Creatinine Clearance Estimated 103 mL/min (50-200); Estimated Glomerular Filt Rate 73 ml/min (>60); GFR (African American) 88 ML/MIN (>60); Glucose 100 mg/dl (74-100)
[2021-06-03 06:40] LABS: Eosinophils % 0.8 % (0.1-12.0); Lymphocytes # 0.7 K/mm3 (0.7-4.5); Monocytes # 0.3 K/mm3 (0.1-1.0); Neutrophils # 4.5 K/mm3 (1.8-7.8); White Blood Count 5.6 K/mm3 (4.8-10.8)
[2021-06-03 06:59] LABS: Basophils % 0.5 % (0.1-2.0); Hematocrit 25.9 % (42.0-52.0); Lymphocytes % 12.1 % (10-50); Mean Corpuscular HGB Conc 31.1 g/dL (31.8-35.4); Mean Corpuscular Hemoglobin 26.8 pg (27.0-31.2); Mean Corpuscular Volume 86.4 fl (80-94); Mean Platelet Volume 8.4 fl (7.4-10.4); Monocytes % 5.9 % (1.7-9.3); Neutrophils % 80.7 % (37.0-80.0); Platelet Count 200 K/mm3 (142-424); Red Cell Distribution Width 16.4 % (11.5-17.5)
--- NOTE | 2021-06-03 07:24 | HMH.PHAINT ---
Home med rec complete
--- NOTE | 2021-06-03 07:41 | PC.WOUNDNOTE ---
Left Foot Left Foot LLE RLE RLE LLE RLE
--- NOTE | 2021-06-03 07:45 | PC.NURSE ---
Blood transfusion completed at 0724. Lungs CTA. VSS. No signs or symptoms of blood transfusion reaction. Order for 2 hour post transfusion H/H entered at this time.
--- NOTE | 2021-06-03 08:06 | HMH.PHACONS ---
- Pharmacy Consult Date: 06/03/21 Time: 08:06 Referring provider: DR HOOKS Reason for Consult:: VANCOMYCIN DOSING CONSULT Allergies and ADEs:: Allergies Allergy/AdvReac Type Severity Reaction Status Date / Time cephalexin [From Keflex] Allergy Verified 05/10/21 11:01 ciprofloxacin [From Cipro] Allergy Verified 05/10/21 11:01 tramadol Allergy Verified 05/10/21 11:01 Home Medications:: Home Medications Medication Instructions Recorded Confirmed Type Aspirin [Aspir 81] 81 mg PO DAILY 05/05/18 06/02/21 History Buprenorphine HCl/Naloxone HCl 2 tab SL DAILY 06/21/18 06/02/21 History [Buprenorphin-Naloxon 8-2 mg Sl] lisinopril 2.5 mg tablet 2.5 mg PO DAILY tab 01/29/20 06/02/21 History potassium chloride 20 mEq 20 meq PO DAILY PRN tab 12/30/20 06/02/21 History tablet,extended release Clopidogrel Bisulfate [Plavix] 75 mg PO DAILY 06/02/21 06/02/21 History Famotidine 40 mg PO DAILY 06/02/21 06/02/21 History Metoprolol Succinate [Metoprolol 25 mg PO DAILY 06/02/21 06/02/21 History Succinate 25mg Tablet*] Omeprazole 20 mg PO DAILY 06/02/21 06/02/21 History Spironolactone 50 mg PO DAILY 06/02/21 06/02/21 History Torsemide 10 mg PO DAILY 06/02/21 06/02/21 History Venlafaxine HCl [Effexor XR 150mg] 150 mg PO DAILY 06/02/21 06/02/21 History Venlafaxine HCl [Effexor Xr] 75 mg PO DAILY 06/02/21 06/02/21 History Atorvastatin Calcium [Lipitor 40mg 40 mg PO DAILY 06/03/21 06/03/21 History Tab] Height: 1.83 m Weight: 84.141 kg Laboratory Results:: Laboratory Results - last 24 hr 06/02/21 18:15: WBC 5.0, RBC 2.67 L, Hgb 6.9 L, Hct 22.8 L, MCV 85.4, MCH 25.9 L, MCHC 30.4 L, RDW 16.7, Plt Count 191, MPV 8.8, Neut % (Auto) 73.5, Lymph % (Auto) 18.0, [place] % (Auto) 6.2, Eos % (Auto) 1.8, Baso % (Auto) 0.5, Neut # (Auto) 3.7, Lymph # (Auto) 0.9, [place] # (Auto) 0.3, Eos # (Auto) 0.1, Baso # (Auto) 0.0 06/02/21 18:15: Sodium 128 L, Potassium 2.8 L*, Chloride 92 L, Carbon Dioxide 31 H, Anion Gap 7.8, BUN 12, Creatinine 1.10, Estimated Creat Clear 113, Estimated GFR 73, Est GFR ( Amer) 88, Glucose 93, Calcium 7.7 L, Total Bilirubin 0.7, AST 36, ALT 17, Alkaline Phosphatase 89, Troponin I < 0.01, Total Protein 5.7 L, Albumin 3.1 L, Globulin 2.6, Albumin/Globulin Ratio 1.2 06/02/21 18:15: Lactate 1.0 06/02/21 18:15: Iron 25 L, TIBC 305, Iron Saturation 8.18350 L, Ferritin 45.8, Vitamin B12 505 06/02/21 18:15: Blood Type Confirm O Positive 06/02/21 18:44: SARS-CoV-2 (PCR) Not detected, Influenza A Untype (PCR) Not detected, Influenza Type B (PCR) Not detected 06/02/21 18:45: Stool Occult Blood Negative 06/02/21 19:15: Blood Type O Positive, Antibody Screen Negative, Crossmatch (AHG) See Detail 06/03/21 06:10: WBC 5.6, RBC 3.00 L, Hgb 8.0 L D, Hct 25.9 L, MCV 86.4, MCH 26.8 L, MCHC 31.1 L, RDW 16.4, Plt Count 200, MPV 8.4, Neut % (Auto) 80.7 H, Lymph % (Auto) 12.1, [place] % (Auto) 5.9, Eos % (Auto) 0.8, Baso % (Auto) 0.5, Neut # (Auto) 4.5, Lymph # (Auto) 0.7, [place] # (Auto) 0.3, Eos # (Auto) 0.0, Baso # (Auto) 0.0 06/03/21 06:10: Sodium 126 L, Potassium 3.4 L D, Chloride 92 L, Carbon Dioxide 28, Anion Gap 9.4, BUN 14, Creatinine 1.10, Estimated Creat Clear 103, Estimated GFR 73, Est GFR ( Amer) 88, Glucose 100, Calcium 7.1 L Medical History: Reports:: Congestive Heart Failure, Coronary Artery Disease, Hyperlipidemia, Hypertension, MRSA, Myocardial Infarction, Peripheral Artery Disease, Peripheral Vascular Disease Denies:: Cancer, Diabetes Mellitus Type 1, Diabetes Mellitus Type 2 Assessment and Plan - Assessment and plan all Dx Assessment and Plan for all problems:: Pharmacokinetic dosing service Objective: Age: 45 yo Serum creatinine: 1.1 mg/dL Height: 72.0 Inches Weight (kg): 84.141 Diagnosis: CELLULITIS Assessment: IBW (kg): 77.60 Dosing wt(kg): 84.141 Estimated Creatinine clearance (ml/min): 95.0 CRCL
--- NOTE | 2021-06-03 09:03 | HMH.HP ---
*Admission Date: 06/02/21 *Chief complaint: Weakness *History of present illness: States that over the past 2 weeks he has gradually become more and more weak. Says he is so profoundly weak now he can hardly get up to move around. States he is unable to get any rest and he also feels dehydrated. He has chronic ulcers on his legs being treated by wound care and Dr. Bhatt. He says these are unchanged recently. No increased redness or pain. No fever at home. Slight cough. No vomiting or diarrhea. No chest or abdominal pain. No hematemesis. No melena or hematochezia (Per Lesly Champion MD). Hemoglobin was 6.9 in the emergency department he did receive 2 units of packed red blood cells and currently hemoglobin is 8.8 Chest x-ray showed no acute findings 45-year-old male patient sitting up in bed he denies any pain or shortness of breath at present. Current oxygenation 92% on 4 L per nasal cannula. He does report ongoing issues with bilateral feet and ankles and seeing Dr. Matamoros in podiatry for these and wound care clinic. He is reminded that he needs to also follow-up with primary care in between appointments so that everyone is aware of his condition. Brother is in room. Patient denies any visible blood in urine or stool and denies any traumatic blood loss. [facility] History I have reviewed the patient's past medical history: Yes Medical History: Reports:: Congestive Heart Failure, Coronary Artery Disease, Hyperlipidemia, Hypertension, MRSA, Myocardial Infarction, Peripheral Artery Disease, Peripheral Vascular Disease Denies:: Cancer, Diabetes Mellitus Type 1, Diabetes Mellitus Type 2 *Have you ever received a pneumonia vaccine?: No *Have you received a flu vaccine this season?: No Other Medical History: Reports: Arthritis Other Surgeries: Yes: Appendectomy, Cardiac Catheterization, Cholecystectomy, Coronary Stent, EGD, Other Amputation: No Fractures: No - *Social History Last grade of school completed: High school graduate Smoking Status: Current every day smoker Tobacco Type: cigarettes # Packs/Day (cigarettes): 2 #Yrs smoked (if former smoker): 15 Alcohol Intake: never Substance Use Type: painkillers *Occupational Status:: unemployed Housing: apartment Household Members: family *Travel in the last 8 weeks: None Family Hx:: Cancer, Coronary Artery Disease, Diabetes, Heart Attack, Hyperlipidemia, Hypertension, Kidney Disease, Alcoholism Review of Systems - Review of Systems Review of systems:: pertinent systems reviewed and negative unless documented below - Constitutional Reports fatigue, Reports lack of energy, Denies body ache(s) - Eyes Denies blurry vision, Denies double vision - ENT Denies dizziness, Denies difficulty swallowing - *Cardiovascular Denies chest pain, Denies chest pain at rest, Denies shortness of breath - *Respiratory Denies chest congestion, Denies shortness of breath - *Gastrointestinal Denies abdominal pain, Denies change in bowel habits - *Musculoskeletal Reports muscle weakness, Denies neck pain, Denies numbness - Integumentary/Breasts Denies bleeding lesions, Denies change in skin color - *Neurologic Reports abnormal walking, Reports weakness, Denies abnormal speech, Denies behavioral changes - Psychiatric Denies abnormal sleep pattern, Denies hearing things others do not hear - Endocrine Denies cold intolerance, Denies excessive sweating - Hematologic/Lymphatic Denies easy bleeding, Denies easy bruising - Allergic/Immunologic Denies itchy eyes, Denies tongue swelling Meds Home Medications Medication Instructions Recorded Confirmed Type Aspirin [Aspir 81] 81 mg PO DAILY 05/05/18 06/02/21 History Buprenorphine HCl/Naloxone HCl 2 tab SL DAILY 06/21/18 06/02/21 History [Buprenorphin-Naloxon 8-2 mg Sl] lisinopril 2.5 mg tablet 2.5 mg PO DAILY tab 01/29/20 06/02/21 History potassium chloride 20 mEq 20 meq PO DAILY PRN tab 12/30/20 06/02/21 History tablet,exten
--- NOTE | 2021-06-03 09:18 | CT_ITS ---
FINAL REPORT TECHNIQUE: Axial CT images were performed from the lung bases through the pubic symphysis. Coronal reformats were submitted and reviewed. This study was performed with techniques to keep radiation doses as low as reasonably achievable (ALARA). Individualized dose reduction techniques using automated exposure control or adjustment of mA and/or kV according to the patient's size were employed. CLINICAL HISTORY: Abd Pain FINDINGS: Abdomen: There are small bilateral pleural effusions. There are patchy bibasilar airspace infiltrates. The gallbladder is absent. The liver and pancreas are unremarkable. The spleen is enlarged up to 14.2 cm. There are no adrenal masses. There is no nephrolithiasis. There is no hydronephrosis. There is mild retroperitoneal adenopathy. Individual lymph nodes measure up to 1.7 cm. There are scattered iliac lymph nodes. External iliac adenopathy measures up to 3.8 cm as seen on coronal imaging. There is moderate inguinal adenopathy more numerous than typically seen measuring up to 3 cm. Pelvis: The appendix is absent. There are no distal ureteral stones. The urinary bladder is unremarkable. IMPRESSION: Abnormal retroperitoneal, iliac, and inguinal adenopathy with associated splenomegaly. This constellation of features is worrisome for underlying lymphoma. Consider PET scan and tissue sampling. Bilateral pleural effusions with bibasilar consolidation. Reviewed, Interpreted and Dictated by Mauricio Gomez MD Transcribed by Julio Colin Authenticated by Mauricio Gomez MD on 06/03/2021 11:23:51 AM [facility]
[2021-06-03 09:27] LABS: Hematocrit 27.2 % (42.0-52.0); Hemoglobin 8.8 g/dL (14.1-18.0)
--- NOTE | 2021-06-03 11:48 | HMH.PTWOUND ---
Rehab Inpt Wound Evaluation Rehab IP Wound Evaluation Start: 06/03/21 04:52 Freq: ONCE Status: Active Protocol: Document 06/03/21 11:42 PHOJOEY (Rec: 06/03/21 11:47 PHORNE [id number]) Rehab PT Wound Assessment Subjective Subjective 45 yowm adm to [facility] with anemia . He has long hx of chronic B LE wounds due to underlying PAD. Wound Left Medial Ankle Wound Type PAD Is This a Chronic Wound Yes Wound Length (cm) 4.0 Wound Width (cm) 4.0 Wound Bed Appearance Yellow,Eschar Percentage of Eschar (Yellow) (%) 100 Wound Margins Description Indistinct Drainage Amount None Primary Dressing Composite Wound Debridement Amount of Tissue None Removed Right Medial Ankle Wound Type PAD Is This a Chronic Wound Yes Wound Length (cm) 8.0 Wound Width (cm) 8.0 Wound Bed Appearance Yellow,Eschar,Peeling Skin Percentage of Eschar (Black) (%) 50 Percentage of Eschar (Yellow) (%) 50 Wound Margins Description Indistinct Surrounding Tissue Appearance Dark Red Wound Drainage Description Sanguineous Drainage Amount Scant Wound Topical Solution/Irrigant Saline Irrigant Primary Dressing Composite Wound Debridement Method Gauze Wound Debridement Amount of Tissue Minimal Removed Dressing Change Patient Tolerance Tolerated Well Plan/Recommendation Comment Pt dressings to be changed once daily per nsg staff and therapy will follow for additional debridement as needed. Continue outpatient wound care upon d/c. Eval Complexity Eval Charge Codes 20914 - Moderate Complexity PHYSICIAN CERTIFICATION: I certify the specified therapy services for Fili Barrera are required, authorized, and reviewed every 30 days.
--- NOTE | 2021-06-03 13:28 | P.CONS_ITS ---
*Admission Date: 06/02/21 <Mily Wyatt 06/03/21 14:36> *Reason for consult:: Feet wounds <Mily Wyatt 06/03/21 14:36> *History of present illness: Podiatry consult: This is a 45 year-old male known to the podiatry team who was admitted 06/02/21 for weakness. PCP team consulted podiatry for continued ongoing wound management of his right medial ankle ulcer, right dorsal foot abrasion, left medial ankle ulcer. Patient did not follow up with podiatry as scheduled on 05/30/21. to review lab, TWIN and skin check. He is currently resting in bed. Alert and oriented x3. No acute distress noted. Denies any new issues with wounds. <Mily Wyatt 06/03/21 14:54> [facility] History Medical History: Reports:: Congestive Heart Failure, Coronary Artery Disease, Hyperlipidemia, Hypertension, MRSA, Myocardial Infarction, Peripheral Artery Disease, Peripheral Vascular Disease Denies:: Cancer, Diabetes Mellitus Type 1, Diabetes Mellitus Type 2 <Mily Wyatt 06/03/21 14:36> *Have you ever received a pneumonia vaccine?: No <Mily Wyatt 06/03/21 14:36> *Have you received a flu vaccine this season?: No <Mily Wyatt 06/03/21 14:36> Other Medical History: Reports: Arthritis <Mily Wyatt 06/03/21 14:36> Other Surgeries: Yes: Appendectomy, Cardiac Catheterization, Cholecystectomy, Coronary Stent, EGD, Other <Mily Wyatt 06/03/21 14:36> Amputation: No <Mily Wyatt 06/03/21 14:36> Fractures: No <Robert Wyatther 06/03/21 14:36> - *Social History Last grade of school completed: High school graduate <Mily Wyatt 06/03/21 14:36> Smoking Status: Current every day smoker <Mily Wyatt 06/03/21 14:36> Tobacco Type: cigarettes <Mily Wyatt 06/03/21 14:36> # Packs/Day (cigarettes): 2 <[facility] 06/03/21 14:36> #Yrs smoked (if former smoker): 15 <[facility] 06/03/21 14:36> Alcohol Intake: never <[facility] 06/03/21 14:36> Substance Use Type: painkillers <[facility] 06/03/21 14:36> *Occupational Status:: unemployed <[facility] 06/03/21 14:36> Housing: apartment <[facility] 06/03/21 14:36> Household Members: family <[facility] 06/03/21 14:36> *Travel in the last 8 weeks: None <[facility] 06/03/21 14:36> Family Hx:: Cancer, Coronary Artery Disease, Diabetes, Heart Attack, Hyperlipidemia, Hypertension, Kidney Disease, Alcoholism <[facility] 06/03/21 14:36> Review of Systems - Constitutional Denies chills <[facility] 06/03/21 14:36> - Eyes Denies blind spots <[facility] 06/03/21 14:36> - ENT Denies abnormal hearing <[facility] 06/03/21 14:36> - *Cardiovascular Denies chest pain <[facility] 06/03/21 14:36> - *Respiratory Denies cough <[facility] 06/03/21 14:36> - *Gastrointestinal Denies abdominal pain <[facility] 06/03/21 14:36> - *Genitourinary Denies difficulty urinating <[facility] 06/03/21 14:36> - *Musculoskeletal Reports muscle weakness <[facility] 06/03/21 14:36> - *Neurologic Reports abnormal walking, Reports weakness, Denies abnormal speech, Denies behavioral changes, Denies dizziness, Denies headache(s), Denies numbness <[facility] 06/03/21 14:36> Meds Home Medications Medication Instructions Recorded Confirmed Type Aspirin [Aspir 81] 81 mg PO DAILY 05/05/18 06/02/21 History Buprenorphine HCl/Naloxone HCl 2 tab SL DAILY 06/21/18 06/02/21 History [Buprenorphin-Naloxon 8-2 mg Sl] lisinopril 2.5 mg tablet 2.5 mg PO
--- NOTE | 2021-06-03 13:28 | HMH.ORTHOCON ---
*Admission Date: 06/02/21 <Mily Wyatt 06/03/21 14:36> *Reason for consult:: Feet wounds <Mily Wyatt 06/03/21 14:36> *History of present illness: Podiatry consult: This is a 45 year-old male known to the podiatry team who was admitted 06/02/21 for weakness. PCP team consulted podiatry for continued ongoing wound management of his right medial ankle ulcer, right dorsal foot abrasion, left medial ankle ulcer. Patient did not follow up with podiatry as scheduled on 05/30/21. to review lab, TWIN and skin check. He is currently resting in bed. Alert and oriented x3. No acute distress noted. Denies any new issues with wounds. <Mily Wyatt 06/03/21 14:54> [facility] History Medical History: Reports:: Congestive Heart Failure, Coronary Artery Disease, Hyperlipidemia, Hypertension, MRSA, Myocardial Infarction, Peripheral Artery Disease, Peripheral Vascular Disease Denies:: Cancer, Diabetes Mellitus Type 1, Diabetes Mellitus Type 2 <Mily Wyatt 06/03/21 14:36> *Have you ever received a pneumonia vaccine?: No <Mily Wyatt 06/03/21 14:36> *Have you received a flu vaccine this season?: No <Mily Wyatt 06/03/21 14:36> Other Medical History: Reports: Arthritis <Mily Wyatt 06/03/21 14:36> Other Surgeries: Yes: Appendectomy, Cardiac Catheterization, Cholecystectomy, Coronary Stent, EGD, Other <Mily Wyatt 06/03/21 14:36> Amputation: No <Mily Wyatt 06/03/21 14:36> Fractures: No <Robert Wyatther 06/03/21 14:36> - *Social History Last grade of school completed: High school graduate <Mily Wyatt 06/03/21 14:36> Smoking Status: Current every day smoker <Mily Wyatt 06/03/21 14:36> Tobacco Type: cigarettes <Mily Wyatt 06/03/21 14:36> # Packs/Day (cigarettes): 2 <[facility] 06/03/21 14:36> #Yrs smoked (if former smoker): 15 <[facility] 06/03/21 14:36> Alcohol Intake: never <[facility] 06/03/21 14:36> Substance Use Type: painkillers <[facility] 06/03/21 14:36> *Occupational Status:: unemployed <[facility] 06/03/21 14:36> Housing: apartment <[facility] 06/03/21 14:36> Household Members: family <[facility] 06/03/21 14:36> *Travel in the last 8 weeks: None <[facility] 06/03/21 14:36> Family Hx:: Cancer, Coronary Artery Disease, Diabetes, Heart Attack, Hyperlipidemia, Hypertension, Kidney Disease, Alcoholism <[facility] 06/03/21 14:36> Review of Systems - Constitutional Denies chills <[facility] 06/03/21 14:36> - Eyes Denies blind spots <[facility] 06/03/21 14:36> - ENT Denies abnormal hearing <[facility] 06/03/21 14:36> - *Cardiovascular Denies chest pain <[facility] 06/03/21 14:36> - *Respiratory Denies cough <[facility] 06/03/21 14:36> - *Gastrointestinal Denies abdominal pain <[facility] 06/03/21 14:36> - *Genitourinary Denies difficulty urinating <[facility] 06/03/21 14:36> - *Musculoskeletal Reports muscle weakness <[facility] 06/03/21 14:36> - *Neurologic Reports abnormal walking, Reports weakness, Denies abnormal speech, Denies behavioral changes, Denies dizziness, Denies headache(s), Denies numbness <[facility] 06/03/21 14:36> Meds Home Medications Medication Instructions Recorded Confirmed Type Aspirin [Aspir 81] 81 mg PO DAILY 05/05/18 06/02/21 History Buprenorphine HCl/Naloxone HCl 2 tab SL DAILY 06/21/18 06/02/21 History [Buprenorphin-Naloxon 8-2 mg Sl] lisinopril 2.5 mg tablet 2.5 mg PO DAILY tab 01/29/20 06/02/21 History potassium chloride 20 mEq 20 meq PO DAILY PRN tab 12/30/20 06/02/21 History tablet,extended release Clopidogrel Bisulfate [Plavix] 75 mg PO DAILY 06/02/21 06/02/21 History Famotidine 40 mg PO DAILY 06/02/21 06/02/21 History Metoprolol Succinate [Metoprolol 25 mg PO DAILY 06/02/21 06/02/21 History Succinate 25mg Tablet*] Omeprazole 20 mg PO DAILY 06/02/21
--- NOTE | 2021-06-03 15:59 | HMH.PULMCON ---
*Admission Date: 06/02/21 *Reason for consult:: Acute hypoxic respiratory failure *History of present illness: Mr. Barrera is a 45-year-old male current smoker used to smoke 2 packs a day currently down to 1 pack a day no baseline significant respiratory complaints, not using any oxygen or inhalers at baseline presented to the hospital with worsening lower extremity redness and swelling and was also found to be having hypoxic respiratory failure needing oxygen supplementation pulmonary was called for further management. [facility] History Medical History: Reports:: Congestive Heart Failure, Coronary Artery Disease, Hyperlipidemia, Hypertension, MRSA, Myocardial Infarction, Peripheral Artery Disease, Peripheral Vascular Disease Denies:: Cancer, Diabetes Mellitus Type 1, Diabetes Mellitus Type 2 *Have you ever received a pneumonia vaccine?: No *Have you received a flu vaccine this season?: No Other Medical History: Reports: Arthritis Other Surgeries: Yes: Appendectomy, Cardiac Catheterization, Cholecystectomy, Coronary Stent, EGD, Other Amputation: No Fractures: No - *Social History Last grade of school completed: High school graduate Smoking Status: Current every day smoker Tobacco Type: cigarettes # Packs/Day (cigarettes): 2 #Yrs smoked (if former smoker): 15 Alcohol Intake: never Substance Use Type: painkillers *Occupational Status:: unemployed Housing: apartment Household Members: family *Travel in the last 8 weeks: None Family Hx:: Cancer, Coronary Artery Disease, Diabetes, Heart Attack, Hyperlipidemia, Hypertension, Kidney Disease, Alcoholism ROS - Cons Reports chills, Reports fatigue - Eyes Denies change in vision - ENT Denies nasal discharge, Denies nasal obstruction - Card Reports shortness of breath, Reports shortness of breath with activity - Resp Respiratory: Reports shortness of breath, Reports change in phlegm color, Reports excessive phlegm production, Denies wheezing - GI Gastrointestingal: Denies: abdominal pain - Psych Denies thoughts of hurting/killing others, Denies thoughts of hurting/killing yourself Meds Home Medications Medication Instructions Recorded Confirmed Type Aspirin [Aspir 81] 81 mg PO DAILY 05/05/18 06/02/21 History Buprenorphine HCl/Naloxone HCl 2 tab SL DAILY 06/21/18 06/02/21 History [Buprenorphin-Naloxon 8-2 mg Sl] lisinopril 2.5 mg tablet 2.5 mg PO DAILY tab 01/29/20 06/02/21 History potassium chloride 20 mEq 20 meq PO DAILY PRN tab 12/30/20 06/02/21 History tablet,extended release Clopidogrel Bisulfate [Plavix] 75 mg PO DAILY 06/02/21 06/02/21 History Famotidine 40 mg PO DAILY 06/02/21 06/02/21 History Metoprolol Succinate [Metoprolol 25 mg PO DAILY 06/02/21 06/02/21 History Succinate 25mg Tablet*] Omeprazole 20 mg PO DAILY 06/02/21 06/02/21 History Spironolactone 50 mg PO DAILY 06/02/21 06/02/21 History Torsemide 10 mg PO DAILY 06/02/21 06/02/21 History Venlafaxine HCl [Effexor XR 150mg] 150 mg PO DAILY 06/02/21 06/02/21 History Venlafaxine HCl [Effexor Xr] 75 mg PO DAILY 06/02/21 06/02/21 History Atorvastatin Calcium [Lipitor 40mg 40 mg PO DAILY 06/03/21 06/03/21 History Tab] Allergies Allergy/AdvReac Type Severity Reaction Status Date / Time cephalexin [From Keflex] Allergy Verified 05/10/21 11:01 ciprofloxacin [From Cipro] Allergy Verified 05/10/21 11:01 tramadol Allergy Verified 05/10/21 11:01 Exam - Constitutional Constitutional:: Present: no acute distress, comfortable - HENMT Exam HENMT: Present: normocephalic, atraumatic - Eye Exam Eyes:: Present: normal appearance both eyes and related structures - Neck Exam Neck:: Present: normal visual inspection - Respiratory Exam Respiratory:: Present: able to speak in complete sentences, no respiratory distress. Absent: wheezing - Cardiovascular Exam Cardiac:: Present: S1, S2 - GI Exam GI:: Present: soft - Skin Exam Skin: Present: warm, rash - Neurological Exam Neurolog
--- NOTE | 2021-06-03 16:07 | HMH.GSCON ---
*Admission Date: 06/02/21 *Reason for consult:: Left Groin Mass *History of present illness: Patient is a 45-year-old male who was admitted yesterday after presenting to the emergency department via private vehicle with several day history of progressive weakness with unsteady gait and some dyspnea on exertion. Patient does have chronic ulcers treated by wound care and podiatry. He did undergo a CT scan of the abdomen pelvis which revealed findings of abnormal retroperitoneal, iliac, and inguinal adenopathy with associated splenomegaly. Review of Systems - Review of Systems Review of systems:: pertinent systems reviewed and negative unless documented below - *Neurologic Reports abnormal walking, Reports weakness, Denies abnormal hearing, Denies abnormal speech, Denies behavioral changes, Denies dizziness, Denies headache(s), Denies numbness [facility] History I have reviewed the patient's past medical history: Yes Medical History: Reports:: Congestive Heart Failure, Coronary Artery Disease, Hyperlipidemia, Hypertension, MRSA, Myocardial Infarction, Peripheral Artery Disease, Peripheral Vascular Disease Denies:: Cancer, Diabetes Mellitus Type 1, Diabetes Mellitus Type 2 *Have you ever received a pneumonia vaccine?: No *Have you received a flu vaccine this season?: No Other Medical History: Reports: Arthritis Other Surgeries: Yes: Appendectomy, Cardiac Catheterization, Cholecystectomy, Coronary Stent, EGD, Other Amputation: No Fractures: No - *Social History Last grade of school completed: High school graduate Smoking Status: Current every day smoker Tobacco Type: cigarettes # Packs/Day (cigarettes): 2 #Yrs smoked (if former smoker): 15 Alcohol Intake: never Substance Use Type: painkillers *Occupational Status:: unemployed Housing: apartment Household Members: family *Travel in the last 8 weeks: None Family Hx:: Cancer, Coronary Artery Disease, Diabetes, Heart Attack, Hyperlipidemia, Hypertension, Kidney Disease, Alcoholism Meds Home Medications Medication Instructions Recorded Confirmed Type Aspirin [Aspir 81] 81 mg PO DAILY 05/05/18 06/02/21 History Buprenorphine HCl/Naloxone HCl 2 tab SL DAILY 06/21/18 06/02/21 History [Buprenorphin-Naloxon 8-2 mg Sl] lisinopril 2.5 mg tablet 2.5 mg PO DAILY tab 01/29/20 06/02/21 History potassium chloride 20 mEq 20 meq PO DAILY PRN tab 12/30/20 06/02/21 History tablet,extended release Clopidogrel Bisulfate [Plavix] 75 mg PO DAILY 06/02/21 06/02/21 History Famotidine 40 mg PO DAILY 06/02/21 06/02/21 History Metoprolol Succinate [Metoprolol 25 mg PO DAILY 06/02/21 06/02/21 History Succinate 25mg Tablet*] Omeprazole 20 mg PO DAILY 06/02/21 06/02/21 History Spironolactone 50 mg PO DAILY 06/02/21 06/02/21 History Torsemide 10 mg PO DAILY 06/02/21 06/02/21 History Venlafaxine HCl [Effexor XR 150mg] 150 mg PO DAILY 06/02/21 06/02/21 History Venlafaxine HCl [Effexor Xr] 75 mg PO DAILY 06/02/21 06/02/21 History Atorvastatin Calcium [Lipitor 40mg 40 mg PO DAILY 06/03/21 06/03/21 History Tab] Allergies Allergy/AdvReac Type Severity Reaction Status Date / Time cephalexin [From Keflex] Allergy Verified 05/10/21 11:01 ciprofloxacin [From Cipro] Allergy Verified 05/10/21 11:01 tramadol Allergy Verified 05/10/21 11:01 Exam Vital signs and Labs for Last 24 Hours: Temp Pulse Resp BP Pulse Ox 97.7 F 77 20 119/84 88 L 06/03/21 14:00 06/03/21 14:00 06/03/21 14:00 06/03/21 14:00 06/03/21 14:00 Laboratory Results - last 24 hr 06/02/21 18:15: WBC 5.0, RBC 2.67 L, Hgb 6.9 L, Hct 22.8 L, MCV 85.4, MCH 25.9 L, MCHC 30.4 L, RDW 16.7, Plt Count 191, MPV 8.8, Neut % (Auto) 73.5, Lymph % (Auto) 18.0, [place] % (Auto) 6.2, Eos % (Auto) 1.8, Baso % (Auto) 0.5, Neut # (Auto) 3.7, Lymph # (Auto) 0.9, [place] # (Auto) 0.3, Eos # (Auto) 0.1, Baso # (Auto) 0.0 06/02/21 18:15: Sodium 128 L, Potassium 2.8 L*, Chloride 92 L, Carbon Dioxide 31 H, Anion Gap 7.8, BUN 12, Creatinine 1.10, E
[2021-06-04] VITALS (8 sets, daily range): BP systolic 108–124; BP diastolic 44–82; PULSE 54–74; RESP 16–19; TEMP 36.4–37; O2SAT 90–100; BMI 26.2
[2021-06-04 07:03] LABS: Chloride 97 mmol/L (98-107)
[2021-06-04 07:04] LABS: Sodium 129 mmol/L (136-145)
[2021-06-04 07:06] LABS: Alanine Aminotransferase 106 U/L (12-78); Aspartate Amino Transferase 261 U/L (17-59); Carbon Dioxide 28 mmol/L (22.0-30.0)
[2021-06-04 07:07] LABS: Albumin Level 2.9 g/dl (3.5-5.0); Albumin/Globulin Ratio 1.1 (1.1-1.8); Alkaline Phosphatase 96 U/L (38-126); Bilirubin,Total 0.7 mg/dl (0.2-1.3); Calcium 7.4 mg/dl (8.4-10.2); Globulin 2.6 g/dL (1.3-3.2); Glucose 102 mg/dl (74-100); Total Protein,Serum 5.5 g/dl (6.3-8.2)
[2021-06-04 07:13] LABS: C-Reactive Protein 57.2 mg/L (0-4)
[2021-06-04 07:23] LABS: Basophils % 0.2 % (0.1-2.0); Eosinophils % 0.3 % (0.1-12.0); Hematocrit 28.6 % (42.0-52.0); Hemoglobin 8.9 g/dL (14.1-18.0); Lymphocytes # 0.8 K/mm3 (0.7-4.5); Lymphocytes % 11.1 % (10-50); Mean Corpuscular Hemoglobin 27.6 pg (27.0-31.2); Mean Corpuscular Volume 88.9 fl (80-94); Mean Platelet Volume 8.1 fl (7.4-10.4); Monocytes # 0.4 K/mm3 (0.1-1.0); Monocytes % 5.5 % (1.7-9.3); Neutrophils # 5.8 K/mm3 (1.8-7.8); Platelet Count 192 K/mm3 (142-424); Red Blood Count 3.22 M/mm3 (4.60-6.20); Red Cell Distribution Width 16.3 % (11.5-17.5)
[2021-06-04 08:13] LABS: Blood Urea Nitrogen 21 mg/dl (9-20); Creatinine Clearance Estimated 98 mL/min (50-200); Estimated Glomerular Filt Rate 66 ml/min (>60); GFR (African American) 80 ML/MIN (>60)
[2021-06-04 08:37] LABS: Vancomycin,Trough 22.9 ug/mL (5.0-10.0)
[2021-06-04 08:38] LABS: Erythrocyte Sedimentation Rate 27 mm/hr (0-15)
--- NOTE | 2021-06-04 09:05 | HMH.ACPN2 ---
Internal Medicine - PN: Subj *Date: 06/04/21 *Time: 09:05 Interval history: talked with pt and family - discussed need to continue in hospital as still with dec activity and needing o2 - poor po intake will obtain ct chest Exam Vital signs and Labs for Last 24 Hours: Temp Pulse Resp BP Pulse Ox 98.4 F 63 18 108/53 L 93 L 06/04/21 07:33 06/04/21 07:33 06/04/21 07:33 06/04/21 07:33 06/04/21 06:39 Laboratory Results - last 24 hr 06/03/21 09:18: Hgb 8.8 L, Hct 27.2 L 06/04/21 06:23: WBC 7.0, RBC 3.22 L, Hgb 8.9 L, Hct 28.6 L, MCV 88.9, MCH 27.6, MCHC 31.0 L, RDW 16.3, Plt Count 192, MPV 8.1, Neut % (Auto) 83.0 H, Lymph % (Auto) 11.1, [place] % (Auto) 5.5, Eos % (Auto) 0.3, Baso % (Auto) 0.2, Neut # (Auto) 5.8, Lymph # (Auto) 0.8, [place] # (Auto) 0.4, Eos # (Auto) 0.0, Baso # (Auto) 0.0, ESR 27 H 06/04/21 06:23: Sodium 129 L, Potassium 4.0, Chloride 97 L, Carbon Dioxide 28, Anion Gap 8.0, BUN 21 H D, Creatinine 1.20, Estimated Creat Clear 98, Estimated GFR 66, Est GFR ( Amer) 80, Glucose 102 H, Calcium 7.4 L, Total Bilirubin 0.7, AST 261 H D, ALT 106 H D, Alkaline Phosphatase 96, C-Reactive Protein 57.2 H, Total Protein 5.5 L, Albumin 2.9 L, Globulin 2.6, Albumin/Globulin Ratio 1.1 06/04/21 07:45: Vancomycin Trough 22.9 H I & O for Last 24 hours: Intake & Output 06/01/21 06/02/21 06/03/21 06/04/21 11:59 11:59 11:59 11:59 Intake Total 620 / 620 660 / 660 Output Total 0 / 550 550 / 550 Balance 620 / 70 110 / 110 Weight 185 lb 3.013 oz 193 lb 6.4 oz - Constitutional no acute distress, chronically ill appearing - *Routine HEENT Exam Head: Present: normocephalic Eye: Present: EOMI, PERRL. Absent: conjunctival icterus ENT: Present: mucous membranes dry - *Routine Neck Exam Absent: JVD - *Routine Respiratory Exam Present: decreased breath sounds - *Routine Cardiovascular Exam Present: RRR, murmur. Absent: rubs - *Routine Abdominal Exam Present: soft - *Routine Extremities Exam Comments: chronic changes noted - *Routine Skin Exam Comments: chronic changes bilat legs - *Routine Neurological Exam Present: alert, CN II-XII intact - Routine Psychiatric Exam Present: cooperative. Absent: good insight Assessment and Plan (1) Anemia Status: Acute Qualifiers: Anemia type: unspecified type Qualified Code(s): D64.9 - Anemia, unspecified Category: Medical Code(s): D64.9 - Anemia, unspecified (2) Skin ulcer of left foot, limited to breakdown of skin Start date: 06/03/21 Start time: 12:30 Status: Acute Category: Medical Code(s): L97.521 - Non-pressure chronic ulcer of other part of left foot limited to breakdown of skin (3) Skin ulcer of right heel, limited to breakdown of skin Start date: 06/03/21 Start time: 12:30 Status: Acute Category: Medical Code(s): L97.411 - Non-pressure chronic ulcer of right heel and midfoot limited to breakdown of skin (4) Edema of both lower extremities Start date: 06/03/21 Start time: 12:30 Status: Acute Category: Medical Code(s): R60.0 - Localized edema (5) Wound of right foot Problem details: Right dorsal foot Status: Acute Category: Medical Code(s): S91.301A - Unspecified open wound, right foot, initial encounter (6) Tobacco use Status: Acute Category: Social Hx Code(s): Z72.0 - Tobacco use (7) Discoloration of skin of lower leg Status: Acute Category: Medical Code(s): L81.9 - Disorder of pigmentation, unspecified (8) Bilateral pleural effusion Status: Acute Category: Medical Code(s): J90 - Pleural effusion, not elsewhere classified (9) Acute respiratory failure with hypoxia Status: Acute Category: Medical Code(s): J96.01 - Acute respiratory failure with hypoxia (10) BMI 26.0-26.9,adult Status: Acute Category: Medical Code(s): Z68.26 - Body mass index [BMI] 26.0-26.9, adult (11) Hypokalemia Status: Acute Category: Medical Code(s):
--- NOTE | 2021-06-04 09:15 | CT_ITS ---
PROCEDURE INFORMATION: Exam: CT Chest With Contrast; Diagnostic Exam date and time: 06/04/2021 9:15 AM Age: 45 years old Clinical indication: Shortness of breath; Additional info: Sob/lymphoma TECHNIQUE: Imaging protocol: Diagnostic computed tomography of the chest with contrast. Radiation optimization: All CT scans at this facility use at least one of these dose optimization techniques: automated exposure control; mA and/or kV adjustment per patient size (includes targeted exams where dose is matched to clinical indication); or iterative reconstruction. Contrast material: ISOVUE; Contrast volume: 75 ml; Contrast route: IV; COMPARISON: CT CHEST WO CON 05/26/2019 6:19 PM FINDINGS: Lungs: Patchy ground-glass opacities are noted in all lobes of the lungs bilaterally with more confluent consolidation in the bilateral lower lobes. Left upper lobe calcified granuloma. Pleural spaces: Small bilateral pleural effusions. No pneumothorax. Heart: Moderate coronary artery calcification. Aorta: Unremarkable. No aortic aneurysm. Lymph nodes: Mildly prominent mediastinal lymph nodes appear slightly enlarged relative to 2020. Index right paratracheal lymph node measures up to 1 cm on series 2, image 18. Gallbladder and bile ducts: Cholecystectomy. Spleen: Calcified splenic granulomas. Bones/joints: Remote right-sided rib fractures. Soft tissues: Bilateral gynecomastia. IMPRESSION: 1. Multilobar pneumonia with small bilateral pleural effusions. 2. Mildly prominent mediastinal lymph nodes.
[2021-06-05] VITALS (12 sets, daily range): BP systolic 101–145; BP diastolic 48–74; PULSE 63–78; RESP 18–23; TEMP 36.3–37.2; O2SAT 86–95; BMI 26.7
--- NOTE | 2021-06-05 04:28 | PC.NURSE ---
Respiratory paged due to patient 02 sats dropping to low 80s. Patient was placed on 8L high flow oxygen at this time. 02 sats currently 93%. Will continue to monitor.
[2021-06-05 06:31] LABS: MANUAL DIFFERENTIAL MANUAL DIFFERENTIAL (MANUAL DIFF)
[2021-06-05 06:37] LABS: Basophils % 0.3 % (0.1-2.0); Eosinophils % 0.1 % (0.1-12.0); Hemoglobin 8.8 g/dL (14.1-18.0); Lymphocytes # 0.7 K/mm3 (0.7-4.5); Lymphocytes % 8.6 % (10-50); Mean Corpuscular HGB Conc 30.8 g/dL (31.8-35.4); Mean Corpuscular Hemoglobin 27.6 pg (27.0-31.2); Mean Corpuscular Volume 89.6 fl (80-94); Mean Platelet Volume 8.4 fl (7.4-10.4); Monocytes # 0.5 K/mm3 (0.1-1.0); Monocytes % 5.9 % (1.7-9.3); Neutrophils # 6.5 K/mm3 (1.8-7.8); Neutrophils % 85.2 % (37.0-80.0); Platelet Count 201 K/mm3 (142-424); Red Cell Distribution Width 16.9 % (11.5-17.5); White Blood Count 7.6 K/mm3 (4.8-10.8)
[2021-06-05 06:38] LABS: Hematocrit 28.7 % (42.0-52.0)
[2021-06-05 06:43] LABS: Chloride 98 mmol/L (98-107)
[2021-06-05 06:44] LABS: Potassium 3.4 mmoL/L (3.5-5.1); Sodium 130 mmol/L (136-145)
[2021-06-05 06:46] LABS: Alanine Aminotransferase 269 U/L (12-78); Albumin Level 2.9 g/dl (3.5-5.0); Alkaline Phosphatase 89 U/L (38-126); Anion Gap 9.4 mEq/L (5-15); Bilirubin,Direct 0.4 mg/dl (0.0-0.4); Bilirubin,Indirect 0.3 mg/dL (0.0-0.9); Bilirubin,Total 0.7 mg/dl (0.2-1.3); Bilirubin,Unconjugated 0.3 mg/dL (0.0-1.1); Blood Urea Nitrogen 25 mg/dl (9-20); Calcium 7.5 mg/dl (8.4-10.2); Carbon Dioxide 26 mmol/L (22.0-30.0); Creatinine Clearance Estimated 110 mL/min (50-200); Estimated Glomerular Filt Rate 73 ml/min (>60); GFR (African American) 88 ML/MIN (>60); Glucose 108 mg/dl (74-100); Total Protein,Serum 5.5 g/dl (6.3-8.2)
[2021-06-05 06:56] LABS: Hypochromasia 2+; Lymphocytes % 5 % (10-50); Neutrophils % 91 % (42-76); Platelet Estimate Normal; Total Cells Counted 100
[2021-06-05 07:03] LABS: T4 (Thyroxine) 4.2 ug/dl (5.53-11.0)
[2021-06-05 07:16] LABS: Thyroid Stimulating Hormone 2.85 uIU/mL (0.465-4.68)
[2021-06-05 07:35] LABS: Aspartate Amino Transferase 803 U/L (17-59)
--- NOTE | 2021-06-05 10:51 | HMH.ACPN2 ---
Internal Medicine - PN: Subj *Date: 06/06/21 *Time: 07:14 Interval history: pt feels better but requiring more o2 and lft increased discussed with phar and will change abx Exam Vital signs and Labs for Last 24 Hours: Temp Pulse Resp BP Pulse Ox 98.1 F 67 18 145/72 H 91 L 06/05/21 07:52 06/05/21 09:25 06/05/21 09:25 06/05/21 07:52 06/05/21 09:27 Laboratory Results - last 24 hr 06/05/21 05:05: Sodium 130 L, Potassium 3.4 L, Chloride 98, Carbon Dioxide 26, Anion Gap 9.4, BUN 25 H, Creatinine 1.10, Estimated Creat Clear 110, Estimated GFR 73, Est GFR ( Amer) 88, Glucose 108 H, Calcium 7.5 L, Total Bilirubin 0.7, Direct Bilirubin 0.4, Conjugated Bilirubin 0.0, Indirect Bilirubin 0.3, Unconjugated Bilirubin 0.3, AST 803 H* D, ALT 269 H D, Alkaline Phosphatase 89, Total Protein 5.5 L, Albumin 2.9 L, TSH 2.85, Thyroxine (T4) 4.2 L 06/05/21 05:05: WBC 7.6, RBC 3.20 L, Hgb 8.8 L, Hct 28.7 L, MCV 89.6, MCH 27.6, MCHC 30.8 L, RDW 16.9, Plt Count 201, MPV 8.4, Neut % (Auto) 85.2 H, Lymph % (Auto) 8.6 L, [place] % (Auto) 5.9, Eos % (Auto) 0.1, Baso % (Auto) 0.3, Neut # (Auto) 6.5, Lymph # (Auto) 0.7, [place] # (Auto) 0.5, Eos # (Auto) 0.0, Baso # (Auto) 0.0, Total Counted 100, Neutrophils % (Manual) 91 H, Band Neutrophils % 4.0, Lymphocytes % (Manual) 5 L, Platelet Estimate Normal, Hypochromasia 2+ I & O for Last 24 hours: Intake & Output 06/02/21 06/03/21 06/04/21 06/05/21 11:59 11:59 11:59 11:59 Intake Total 620 / 620 660 / 660 920 / 920 Output Total 0 / 550 550 / 550 Balance 620 / 70 110 / 110 920 / 920 Weight 185 lb 3.013 oz 193 lb 6.4 oz 197 lb 11.2 oz Microbiology Reports for the Last 24 Hours: Microbiology 06/03/21 18:30 Nose - Nasal MRSA Culture - Final Negative 06/02/21 18:15 Blood Blood Culture - Preliminary NO GROWTH AFTER 48 HOURS 06/02/21 18:15 Blood Blood Culture - Preliminary NO GROWTH AFTER 48 HOURS - Constitutional no acute distress - *Routine HEENT Exam Head: Present: normocephalic Eye: Present: EOMI, PERRL ENT: Present: mucous membranes dry - *Routine Neck Exam Absent: JVD - *Routine Respiratory Exam Present: rhonchi - *Routine Cardiovascular Exam Present: RRR - *Routine Abdominal Exam Present: soft - *Routine Extremities Exam Absent: calf tenderness - *Routine Skin Exam Present: intact - *Routine Neurological Exam Present: alert, CN II-XII intact - Routine Psychiatric Exam Present: normal affect Assessment and Plan (1) Anemia Status: Acute Qualifiers: Anemia type: unspecified type Qualified Code(s): D64.9 - Anemia, unspecified Category: Medical Code(s): D64.9 - Anemia, unspecified (2) Skin ulcer of left foot, limited to breakdown of skin Start date: 06/03/21 Start time: 12:30 Status: Acute Category: Medical Code(s): L97.521 - Non-pressure chronic ulcer of other part of left foot limited to breakdown of skin (3) Skin ulcer of right heel, limited to breakdown of skin Start date: 06/03/21 Start time: 12:30 Status: Acute Category: Medical Code(s): L97.411 - Non-pressure chronic ulcer of right heel and midfoot limited to breakdown of skin (4) Edema of both lower extremities Start date: 06/03/21 Start time: 12:30 Status: Acute Category: Medical Code(s): R60.0 - Localized edema (5) Wound of right foot Problem details: Right dorsal foot Status: Acute Category: Medical Code(s): S91.301A - Unspecified open wound, right foot, initial encounter (6) Tobacco use Status: Acute Category: Social Hx Code(s): Z72.0 - Tobacco use (7) Discoloration of skin of lower leg Status: Acute Category: Medical Code(s): L81.9 - Disorder of pigmentation, unspecified (8) Bilateral pleural effusion Status: Acute Category: Medical Code(s): J90 - Pleural effusion, not elsewhere classified (9) Acute resp
--- NOTE | 2021-06-05 10:54 | XR_ITS ---
PROCEDURE INFORMATION: Exam: XR Chest Exam date and time: 06/05/2021 10:54 AM Age: 45 years old Clinical indication: Shortness of breath; Additional info: SOB TECHNIQUE: Imaging protocol: XR of the chest. Views: 1 view. COMPARISON: CT CHEST W CON 06/04/2021 10:25 AM FINDINGS: Lungs: Patchy airspace opacities within the mid and lower lung zones. Compatible with multifocal pneumonia. Recommend follow-up to resolution. Pleural spaces: Unremarkable. No pleural effusion. No pneumothorax. Heart/Mediastinum: Unremarkable. No cardiomegaly. Bones/joints: Unremarkable. IMPRESSION: Patchy airspace opacities within the mid and lower lung zones bilaterally. Compatible with multifocal pneumonia. Recommend follow-up to resolution.
[2021-06-05 15:52] LABS: Adenovirus,PCR Not Detected (NotDetected); Bordetella Pertussis Not Detected (NotDetected); Chlamydophila Pneumoniae, PCR Not Detected (NotDetected); Coronavirus 19, PCR Not Detected (NotDetected); Coronavirus 229E Not Detected (NotDetected); Coronavirus NL63 Not Detected (NotDetected); Coronavirus OC43 Not Detected (NotDetected); Coronovirus HKU1,PCR Not Detected (NotDetected); Human Metapneumovirus Not Detected (NotDetected); Influenza A, PCR Not Detected (NotDetected); Influenza AH1, 2009 Not Detected (NotDetected); Influenza AH1, PCR Not Detected (NotDetected); Influenza AH3,PCR Not Detected (NotDetected); Influenza B, PCR Not Detected (NotDetected); Mycoplasma Pneumoniae, PCR Not Detected (NotDetected); Parainfluenza 1, PCR Not Detected (NotDetected); Parainfluenza 2, PCR Not Detected (NotDetected); Parainfluenza 3, PCR Not Detected (NotDetected); Parainfluenza 4, PCR Not Detected (NotDetected); Respiratory Syncytial Virus Not Detected (NotDetected); Rhinovirus/Enterovirus Not Detected (NotDetected)
--- NOTE | 2021-06-05 18:46 | PC.NURSE ---
SPOKE WITH DR POOLE REGARDING PT NEED FOR CANALES CATH BUT PT REFUSED INSERTION.
[2021-06-06] VITALS (16 sets, daily range): BP systolic 99–142; BP diastolic 56–84; PULSE 60–76; RESP 18–26; TEMP 36.7–37.3; O2SAT 87–96; BMI 26.4
[2021-06-06 07:18] LABS: MANUAL DIFFERENTIAL MANUAL DIFFERENTIAL (MANUAL DIFF)
[2021-06-06 07:33] LABS: Basophils % 0.2 % (0.1-2.0); Eosinophils % 0.1 % (0.1-12.0); Hematocrit 26.6 % (42.0-52.0); Hemoglobin 8.2 g/dL (14.1-18.0); Lymphocytes # 0.8 K/mm3 (0.7-4.5); Lymphocytes % 10.2 % (10-50); Mean Corpuscular Hemoglobin 27.6 pg (27.0-31.2); Mean Corpuscular Volume 89.1 fl (80-94); Mean Platelet Volume 8.6 fl (7.4-10.4); Monocytes # 0.5 K/mm3 (0.1-1.0); Neutrophils # 6.5 K/mm3 (1.8-7.8); Neutrophils % 83.4 % (37.0-80.0); Platelet Count 185 K/mm3 (142-424); Red Blood Count 2.98 M/mm3 (4.60-6.20); White Blood Count 7.8 K/mm3 (4.8-10.8)
[2021-06-06 07:36] LABS: Chloride 100 mmol/L (98-107); Sodium 130 mmol/L (136-145)
[2021-06-06 07:38] LABS: Bilirubin,Unconjugated 0.4 mg/dL (0.0-1.1); Blood Urea Nitrogen 30 mg/dl (9-20); Creatinine Clearance Estimated 108 mL/min (50-200); Estimated Glomerular Filt Rate 73 ml/min (>60); GFR (African American) 88 ML/MIN (>60)
[2021-06-06 07:39] LABS: Alanine Aminotransferase 435 U/L (12-78); Albumin Level 2.7 g/dl (3.5-5.0); Alkaline Phosphatase 93 U/L (38-126); Bilirubin,Direct 0.4 mg/dl (0.0-0.4); Bilirubin,Indirect 0.4 mg/dL (0.0-0.9); Bilirubin,Total 0.8 mg/dl (0.2-1.3); Calcium 7.1 mg/dl (8.4-10.2); Carbon Dioxide 25 mmol/L (22.0-30.0); Glucose 77 mg/dl (74-100); Total Protein,Serum 5.2 g/dl (6.3-8.2)
--- NOTE | 2021-06-06 08:00 | PC.NURSE ---
0800- THIS RN NOTIFIED VIA LAB OF CRITICAL POTASSIUM 3.0. NAME AND VERIFIED. DR HOOKS UPDATED.
[2021-06-06 08:01] LABS: Aspartate Amino Transferase 804 U/L (17-59)
--- NOTE | 2021-06-06 08:12 | US_ITS ---
FINAL REPORT TECHNIQUE: Ultrasound images of the testicles were obtained bilaterally. Color Doppler images were obtained. CLINICAL HISTORY: scrotum mass FINDINGS: The right testicle measures 3.6 cm. The left testicle measures 3.6 cm. The testicles are normal in size and echotexture bilaterally. Arterial flow is identified bilaterally. No intratesticular masses are identified. There is a 4 mm probable left epididymal cyst. There is a 2 cm right inguinal lymph node which is nonspecific, favor reactive. IMPRESSION: 1. No evidence of testicular torsion or intratesticular mass. 2. Probable left epididymal cyst. 3. Nonspecific right inguinal lymph node is favored to be reactive. Reviewed, Interpreted and Dictated by Sabino Scott III, MD Transcribed by FRANCESCO Bailey Authenticated by Sabino Scott III, MD on 06/06/2021 09:55:18 AM [facility]
[2021-06-06 08:51] LABS: Coronavirus 19, PCR Not Detected (NotDetected); Influenza A, PCR Not Detected (NotDetected); Influenza B, PCR Not Detected (NotDetected)
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
--- NOTE | 2021-06-06 09:16 | HMH.ACPN2 ---
Internal Medicine - PN: Subj *Date: 06/06/21 *Time: 08:00 Interval history: pt laying in bed states he would like to go home. family at bedside. on vapather Exam Vital signs and Labs for Last 24 Hours: Temp Pulse Resp BP Pulse Ox 98.5 F 63 18 142/84 H 92 L 06/06/21 07:48 06/06/21 07:48 06/06/21 07:48 06/06/21 07:48 06/06/21 08:00 Laboratory Results - last 24 hr 06/05/21 15:45: Chlamy pneumoniae PCR Not detected, Adenovirus (PCR) Not detected, B. pertussis DNA (PCR) Not detected, Coronavirus OC43 (PCR) Not detected, Coronavirus HKU1 (PCR) Not detected, Coronavirus 229E (PCR) Not detected, SARS-CoV-2 (PCR) Not detected, Coronavirus NL63 (PCR) Not detected, Human Metapneumovir PCR Not detected, Influenza A (H1) PCR Not detected, Influ A (H1N1/09) PCR Not detected, Influenza A (H3) PCR Not detected, Influenza Type A (PCR) Not detected, Influenza Type B (PCR) Not detected, M. pneumoniae (PCR) Not detected, Parainfluenza 1 (PCR) Not detected, Parainfluenza 2 (PCR) Not detected, Parainfluenza 3 (PCR) Not detected, Parainfluenza 4 (PCR) Not detected, RSV (PCR) Not detected, Entero/Rhino (PCR) Not detected 06/06/21 06:08: WBC 7.8, RBC 2.98 L, Hgb 8.2 L, Hct 26.6 L, MCV 89.1, MCH 27.6, MCHC 31.0 L, RDW 17.0, Plt Count 185, MPV 8.6, Neut % (Auto) 83.4 H, Lymph % (Auto) 10.2, [place] % (Auto) 6.0, Eos % (Auto) 0.1, Baso % (Auto) 0.2, Neut # (Auto) 6.5, Lymph # (Auto) 0.8, [place] # (Auto) 0.5, Eos # (Auto) 0.0, Baso # (Auto) 0.0 06/06/21 06:08: Sodium 130 L, Potassium 3.0 L, Chloride 100, Carbon Dioxide 25, Anion Gap 8.0, BUN 30 H, Creatinine 1.10, Estimated Creat Clear 108, Estimated GFR 73, Est GFR ( Amer) 88, Glucose 77, Calcium 7.1 L, Total Bilirubin 0.8, Direct Bilirubin 0.4, Conjugated Bilirubin 0.0, Indirect Bilirubin 0.4, Unconjugated Bilirubin 0.4, AST 804 H*, ALT 435 H*, Alkaline Phosphatase 93, Total Protein 5.2 L, Albumin 2.7 L I & O for Last 24 hours: Intake & Output 06/03/21 06/04/21 06/05/21 06/06/21 11:59 11:59 11:59 11:59 Intake Total 620 / 620 660 / 660 920 / 920 1550 / 1550 Output Total 0 / 550 550 / 550 1300 / 1300 Balance 620 / 70 110 / 110 920 / 920 250 / 250 Weight 185 lb 3.013 oz 193 lb 6.4 oz 197 lb 11.2 oz 195 lb 4.8 oz Microbiology Reports for the Last 24 Hours: Microbiology 06/03/21 18:30 Nose - Nasal MRSA Culture - Final Negative - Constitutional no acute distress, chronically ill appearing - *Routine HEENT Exam Head: Present: normocephalic Eye: Present: PERRL ENT: Present: mucous membranes moist - *Routine Neck Exam Present: supple. Absent: lymphadenopathy - *Routine Respiratory Exam Present: decreased breath sounds, CTA bilaterally - *Routine Cardiovascular Exam Present: RRR - *Routine Abdominal Exam Present: soft, normoactive bowel sounds. Absent: tenderness - *Routine Exam Comments: enlarged lymp node in left groin, palpable - *Routine Extremities Exam Present: normal capillary refill. Absent: cyanosis, clubbing, edema Comments: zeke lower ext dressing in place - *Routine Skin Exam Present: warm, wounds. Absent: rash - *Routine Neurological Exam Present: alert, oriented X3 Assessment and Plan (1) Anemia Status: Acute Qualifiers: Anemia type: unspecified type Qualified Code(s): D64.9 - Anemia, unspecified Category: Medical Code(s): D64.9 - Anemia, unspecified (2) Skin ulcer of left foot, limited to breakdown of skin Start date: 06/03/21 Start time: 12:30 Status: Acute Category: Medical Code(s): L97.521 - Non-pressure chronic ulcer of other part of left foot limited to breakdown of skin (3) Skin ulcer of right heel, limited to breakdown of skin Start date: 06/03/21 Start time: 12:30 Status: Acute Category: Medical Code(s): L97.411 - Non-pressure chronic ulcer of right heel and midfoot limited to breakdown of skin (4) Edema of both lower extremities Start date
--- NOTE | 2021-06-06 09:24 | HMH.PULMPN ---
Internal Medicine - PN: Subj *Date: 06/06/21 *Time: 10:53 Interval history: Patient admits improvement in her symptoms since yesterday. His respiratory status overall worsened over the weekend currently on high flow nasal cannula. Exam - Constitutional Constitutional:: Present: no acute distress, comfortable - HENMT Exam HENMT: Present: normocephalic, atraumatic - Eye Exam Eyes:: Present: normal appearance both eyes and related structures - Neck Exam Neck:: Present: normal visual inspection - Respiratory Exam Respiratory:: Present: able to speak in complete sentences, respiratory distress, crackles. Absent: wheezing - Cardiovascular Exam Cardiac:: Present: S1, S2 - GI Exam GI:: Present: soft - Skin Exam Skin: Present: warm, rash - Neurological Exam Neurological: Present: alert, awake - Extremities Exam Extremities: Present: no cyanosis, no clubbing, edema Assessment and Plan (1) Anemia Status: Acute Qualifiers: Anemia type: unspecified type Qualified Code(s): D64.9 - Anemia, unspecified Category: Medical Code(s): D64.9 - Anemia, unspecified (2) Skin ulcer of left foot, limited to breakdown of skin Start date: 06/03/21 Start time: 12:30 Status: Acute Category: Medical Code(s): L97.521 - Non-pressure chronic ulcer of other part of left foot limited to breakdown of skin (3) Skin ulcer of right heel, limited to breakdown of skin Start date: 06/03/21 Start time: 12:30 Status: Acute Category: Medical Code(s): L97.411 - Non-pressure chronic ulcer of right heel and midfoot limited to breakdown of skin (4) Edema of both lower extremities Start date: 06/03/21 Start time: 12:30 Status: Acute Category: Medical Code(s): R60.0 - Localized edema (5) Wound of right foot Problem details: Right dorsal foot Status: Acute Category: Medical Code(s): S91.301A - Unspecified open wound, right foot, initial encounter (6) Tobacco use Status: Acute Category: Social Hx Code(s): Z72.0 - Tobacco use (7) Discoloration of skin of lower leg Status: Acute Category: Medical Code(s): L81.9 - Disorder of pigmentation, unspecified (8) Bilateral pleural effusion Status: Acute Category: Medical Code(s): J90 - Pleural effusion, not elsewhere classified (9) Acute respiratory failure with hypoxia Status: Acute Category: Medical Code(s): J96.01 - Acute respiratory failure with hypoxia (10) BMI 26.0-26.9,adult Status: Acute Category: Medical Code(s): Z68.26 - Body mass index [BMI] 26.0-26.9, adult (11) Hypokalemia Status: Acute Category: Medical Code(s): E87.6 - Hypokalemia (12) Hyponatremia Status: Acute Category: Medical Code(s): E87.1 - Hypo-osmolality and hyponatremia (13) Hypocalcemia Status: Acute Category: Medical Code(s): E83.51 - Hypocalcemia (14) Retroperitoneal lymphadenopathy Status: Acute Category: Medical Code(s): R59.0 - Localized enlarged lymph nodes (15) Splenomegaly Status: Acute Category: Medical Code(s): R16.1 - Splenomegaly, not elsewhere classified (16) Lymphoma Status: Acute Qualifiers: Lymphoma type: unspecified type Lymphoma site: intra-abdominal nodes Qualified Code(s): C85.93 - Non-Hodgkin lymphoma, unspecified, intra-abdominal lymph nodes Category: Medical Code(s): C85.90 - Non-Hodgkin lymphoma, unspecified, unspecified site (17) Elevated LFTs Status: Acute Category: Medical Code(s): R79.89 - Other specified abnormal findings of blood chemistry - Assessment and plan all Dx Assessment and Plan for all problems:: #Acute on chronic hypoxic respiratory failure: #Community-acquired pneumonia: #Atypical Pneumonia 45-year-old current smoker around 1 pack smoking history. Denies any baseline respiratory symptoms. Presented to the hospital with worsening lower extremity rash and swelling and was found to be having hypoxic respiratory failure needing oxyge
--- NOTE | 2021-06-06 09:28 | CA_ITS ---
FINAL REPORT CLINICAL HISTORY: Edema, Hx- MRSA infection of Lt ankle. Hypoxia, Altered mental status- uncontrollable movement. FINDINGS: Color Doppler, duplex Doppler and compression sonography of the bilateral lower extremities was performed. There is no evidence of deep venous thrombosis from the level of the groin to the calf. The deep veins are patent and compressible. IMPRESSION: No evidence of deep venous thrombosis bilateral lower extremities. Reviewed, Interpreted and Dictated by Sabino Scott III, MD Transcribed by Nallely Garvin Authenticated by Sabino Scott III, MD on 06/06/2021 01:31:09 PM [facility]
--- NOTE | 2021-06-06 09:28 | DIET.NUTRFU ---
Say patient during rounds today, mom was present. This RD expressed concern about poor intake and patient did agree to try some ensure. Spoke to patient and mom about eating food and supplements instead of the Pepper which he had at bedside. Patient reported drinking 12 Dr[address] Peppers daily at home. Encouraged high protein choices to help with skin. Updated meal ticket
[2021-06-06 09:33] LABS: Eosinophils % 1 % (0-3); Lymphocytes % 7 % (10-50); Monocytes % 2 % (2-9); Neutrophils % 90 % (42-76); Platelet Estimate Normal; Total Cells Counted 100
[2021-06-06 09:34] LABS: Anisocytosis 1+; Hypochromasia 1+; Spherocytes 1+
[2021-06-06 11:16] LABS: Microscopic, Urine URINE MICROSCOPIC (MICROSCOPIC)
[2021-06-06 11:21] LABS: Appearance,Urine CLEAR (Clear); Bilirubin,Urine Negative (Negative); Blood, Urine 1+ (Negative); Color,Urine YELLOW (Yellow); Glucose,Urine (UA) Negative (Negative); Ketones,Urine Negative (Negative); Leukocyte Esterase,Urine Negative (Negative); Nitrate,Urine Negative (Negative); Protein,Urine Negative (Negative); Specific Gravity, Urine <= 1.005 (1.005-1.030); Urobilinogen,Urine 0.2 EU/dl (0.2)
[2021-06-06 11:48] LABS: Bacteria,Urine Trace /lpf; Squamous Epithelial Cell,Urine Occasional #/hpf (0-5); WBC,Urine Occasional #/hpf (0-3)
[2021-06-06 12:10] LABS: ABG Base Excess -1.6 mmol/L (-2.4-2.3); ABG HCO3 22.5 mmhg (22.0-26.0); ABG Oxygen Saturation 92 % (90-100); ABG PCO2 33.8 mmhg (35.0-45.0); ABG PH 7.44 mmol/L (7.35-7.45); ABG PO2 66.9 mmhg (80-100); ABG TCO2 23.6 mmhg (23-27); Allen's Test Acceptable; Source Left Radial
[2021-06-06 12:16] LABS: ABG Methemoglobin 0.3 % (0.4-1.5)
--- NOTE | 2021-06-06 12:44 | HMH.CONS ---
*Admission Date: 06/02/21 *History of present illness: Mr. Barrera is a 45-year-old male admitted for sob. he is currently being treated for pna and is requiring oxygen. he had ct scans and demonstrated bilateral pleural effusions as well as splenomegaly, retroperitoneal and abdominal lad. pt reports weight has been stable. he denies night sweats. pt states he feels good. [facility] History Medical History: Reports:: Congestive Heart Failure, Coronary Artery Disease, Hyperlipidemia, Hypertension, MRSA, Myocardial Infarction, Peripheral Artery Disease, Peripheral Vascular Disease Denies:: Cancer, Diabetes Mellitus Type 1, Diabetes Mellitus Type 2 *Have you ever received a pneumonia vaccine?: No *Have you received a flu vaccine this season?: No Other Medical History: Reports: Arthritis Other Surgeries: Yes: Appendectomy, Cardiac Catheterization, Cholecystectomy, Coronary Stent, EGD, Other Amputation: No Fractures: No - *Social History Last grade of school completed: High school graduate Smoking Status: Current every day smoker Tobacco Type: cigarettes # Packs/Day (cigarettes): 2 #Yrs smoked (if former smoker): 15 Alcohol Intake: never Substance Use Type: painkillers *Occupational Status:: unemployed Housing: apartment Household Members: family *Travel in the last 8 weeks: None Family Hx:: Cancer, Coronary Artery Disease, Diabetes, Heart Attack, Hyperlipidemia, Hypertension, Kidney Disease, Alcoholism Review of Systems - *Neurologic Reports abnormal walking, Reports weakness, Denies abnormal hearing, Denies abnormal speech, Denies behavioral changes, Denies dizziness, Denies headache(s), Denies numbness Meds Home Medications Medication Instructions Recorded Confirmed Type Aspirin [Aspir 81] 81 mg PO DAILY 05/05/18 06/02/21 History Buprenorphine HCl/Naloxone HCl 2 tab SL DAILY 06/21/18 06/02/21 History [Buprenorphin-Naloxon 8-2 mg Sl] lisinopril 2.5 mg tablet 2.5 mg PO DAILY tab 01/29/20 06/02/21 History potassium chloride 20 mEq 20 meq PO DAILY PRN tab 12/30/20 06/02/21 History tablet,extended release Clopidogrel Bisulfate [Plavix] 75 mg PO DAILY 06/02/21 06/02/21 History Famotidine 40 mg PO DAILY 06/02/21 06/02/21 History Metoprolol Succinate [Metoprolol 25 mg PO DAILY 06/02/21 06/02/21 History Succinate 25mg Tablet*] Omeprazole 20 mg PO DAILY 06/02/21 06/02/21 History Spironolactone 50 mg PO DAILY 06/02/21 06/02/21 History Torsemide 10 mg PO DAILY 06/02/21 06/02/21 History Venlafaxine HCl [Effexor XR 150mg] 150 mg PO DAILY 06/02/21 06/02/21 History Venlafaxine HCl [Effexor Xr] 75 mg PO DAILY 06/02/21 06/02/21 History Atorvastatin Calcium [Lipitor 40mg 40 mg PO DAILY 06/03/21 06/03/21 History Tab] Allergies Allergy/AdvReac Type Severity Reaction Status Date / Time cephalexin [From Keflex] Allergy Verified 05/10/21 11:01 ciprofloxacin [From Cipro] Allergy Verified 05/10/21 11:01 tramadol Allergy Verified 05/10/21 11:01 Exam Vital signs and Labs for Last 24 Hours: Temp Pulse Resp BP Pulse Ox 98.5 F 63 18 142/84 H 92 L 06/06/21 07:48 06/06/21 07:48 06/06/21 07:48 06/06/21 07:48 06/06/21 08:00 Laboratory Results - last 24 hr 06/05/21 15:45: Chlamy pneumoniae PCR Not detected, Adenovirus (PCR) Not detected, B. pertussis DNA (PCR) Not detected, Coronavirus OC43 (PCR) Not detected, Coronavirus HKU1 (PCR) Not detected, Coronavirus 229E (PCR) Not detected, SARS-CoV-2 (PCR) Not detected, Coronavirus NL63 (PCR) Not detected, Human Metapneumovir PCR Not detected, Influenza A (H1) PCR Not detected, Influ A (H1N1/09) PCR Not detected, Influenza A (H3) PCR Not detected, Influenza Type A (PCR) Not detected, Influenza Type B (PCR) Not detected, M. pneumoniae (PCR) Not detected, Parainfluenza 1 (PCR) Not detected, Parainfluenza 2 (PCR) Not detected, Parainfluenza 3 (PCR) Not detected, Parainfluenza 4 (PCR) Not detected, RSV (PCR) Not detected, Entero/Rhino (PCR) Not detected 06/06/21 06:08: WBC 7
--- NOTE | 2021-06-06 15:03 | PC.NURSE ---
Addendum entered by Arcelia Irizarry RN 06/06/21 18:30: DRESSINGS CHANGED TO BLE AT 1700 Original Note: PT IS RESTING IN BED WITH FAMILY AT BEDSIDE. PT HAS BEEN RESTLESS AND SOMEWHAT CONFUSED THIS SHIFT. PT HAS HAD SOME OCCASIONAL HALLUCINATIONS. THIS AFTERNOON PT STATED THERE WAS SOMETHING CRAWLING ACROSS THE FLOOR AND ASKED IF HE NEEDED TO GET IT. PT HAS REMOVED VAPOTHERM SEVERAL TIMES THIS SHIFT. O2 SATURATION WILL MAINTAIN 90-94% ON VAPOTHERM 40 L 60% FIO2. PT DESATS QUICKLY TO THE 80'S WHEN HE REMOVES VAPOTHERM. ULCERS/DISCOLORATION NOTED TO BLE. SCATTERED SCABS NOTED TO BILATERAL THIGHS. LUNG SOUNDS DIMINISHED. ABDOMEN SOFT/NON TENDER WITH HYPOACTIVE BOWEL SOUNDS. ACCORDING TO PT'S FAMILY PT HAS NOT HAD AN APPETITE FOR SEVERAL DAYS. WILL CONTINUE TO MONITOR.
[2021-06-07] VITALS (11 sets, daily range): BP systolic 101–131; BP diastolic 48–85; PULSE 52–80; RESP 20–24; TEMP 36.9–37.1; O2SAT 9–97; BMI 27.7
--- NOTE | 2021-06-07 05:26 | PC.NURSE ---
Pt mental status is altered at times. Pt is very drowsy. Will answer and follow commands. Speech is slurred or garbled at times. Pt remains on Vapotherm 40L 60%. Has had to be redirected multiple times to keep NC in nose. Pt drops quickly to 70s when he takes NC off. Recovers well. VSS. F/C draining to bedside with dark, deepak urine. No BM this shift. Will continue to monitor.
[2021-06-07 06:39] LABS: MANUAL DIFFERENTIAL MANUAL DIFFERENTIAL (MANUAL DIFF)
[2021-06-07 06:48] LABS: Basophils % 0.3 % (0.1-2.0); Hematocrit 24.9 % (42.0-52.0); Hemoglobin 7.8 g/dL (14.1-18.0); Lymphocytes # 0.7 K/mm3 (0.7-4.5); Lymphocytes % 10.5 % (10-50); Mean Corpuscular HGB Conc 31.5 g/dL (31.8-35.4); Mean Platelet Volume 9.3 fl (7.4-10.4); Monocytes # 0.5 K/mm3 (0.1-1.0); Monocytes % 7.1 % (1.7-9.3); Neutrophils # 5.6 K/mm3 (1.8-7.8); Platelet Count 168 K/mm3 (142-424); Red Cell Distribution Width 18.2 % (11.5-17.5); White Blood Count 6.9 K/mm3 (4.8-10.8)
[2021-06-07 06:55] LABS: Blood Urea Nitrogen 28 mg/dl (9-20); Calcium 7.5 mg/dl (8.4-10.2); Carbon Dioxide 27 mmol/L (22.0-30.0); Chloride 102 mmol/L (98-107); Creatinine Clearance Estimated 107 mL/min (50-200); Estimated Glomerular Filt Rate 73 ml/min (>60); GFR (African American) 88 ML/MIN (>60); Glucose 99 mg/dl (74-100); Sodium 135 mmol/L (136-145)
[2021-06-07 08:16] LABS: HIV Screen 4th Generation wRfx Non Reactive (Non Reactive)
[2021-06-07 08:27] LABS: Lymphocytes % 4 % (10-50); Monocytes % 7 % (2-9); Neutrophils % 89 % (42-76); Total Cells Counted 100
[2021-06-07 08:28] LABS: Platelet Estimate Normal
--- NOTE | 2021-06-07 08:45 | XR_ITS ---
FINAL REPORT CLINICAL HISTORY: hypoxia COMPARISON: 06/05/2021 FINDINGS: SINGLE VIEW CHEST The heart is normal in size. The mediastinum is unremarkable. There are worsening bilateral pulmonary opacities consistent with worsening pneumonia. There is no pneumothorax. IMPRESSION: Worsening pneumonia. Reviewed, Interpreted and Dictated by Sabino Scott III, MD Transcribed by Toshia Pepe Authenticated by Sabino Scott III, MD on 06/07/2021 09:35:47 AM [facility]
--- NOTE | 2021-06-07 08:46 | HMH.ACPN ---
Internal Medicine - PN: Subj *Date: 06/07/21 *Time: 08:46 Exam Vital signs and Labs for Last 24 Hours: Temp Pulse Resp BP Pulse Ox 98.7 F 65 20 129/48 L 95 06/07/21 04:00 06/07/21 08:00 06/07/21 08:00 06/07/21 08:00 06/07/21 08:00 Laboratory Results - last 24 hr 06/06/21 06:08: Total Counted 100, Neutrophils % (Manual) 90 H, Lymphocytes % (Manual) 7 L, Monocytes % (Manual) 2, Eosinophils % (Manual) 1, Platelet Estimate Normal, Hypochromasia 1+, Anisocytosis 1+, Spherocytes 1+ 06/06/21 08:30: SARS-CoV-2 (PCR) Not detected, Influenza A Untype (PCR) Not detected, Influenza Type B (PCR) Not detected 06/06/21 08:45: HIV 1&2 Ag/Ab, 4th Gen Non reactive 06/06/21 09:55: D-Dimer 2.00 H 06/06/21 10:28: Urine Color Yellow, Urine Appearance Clear, Urine pH 5.0, Ur Specific [place] <= 1.005, Urine Protein Negative, Urine Glucose (UA) Negative, Urine Ketones Negative, Urine Blood 1+, Urine Nitrate Negative, Urine Bilirubin Negative, Urine Urobilinogen 0.2, Ur Leukocyte Esterase Negative, Urine WBC Occasional, Ur Squamous Epith Cells Occasional, Urine Bacteria Trace 06/06/21 12:04: Specimen Source Left radial, O2 % 30l 60%, ABG pH 7.44, ABG pCO2 33.8 L, ABG pO2 66.9 L, ABG HCO3 22.5, ABG Total CO2 23.6, ABG O2 Saturation 92, ABG Base Excess -1.6, Dai Test Acceptable 06/06/21 12:15: ABG Methemoglobin 0.3 L 06/07/21 05:07: WBC 6.9, RBC 2.80 L, Hgb 7.8 L, Hct 24.9 L, MCV 89.0, MCH 28.0, MCHC 31.5 L, RDW 18.2 H, Plt Count 168, MPV 9.3, Neut % (Auto) 82.0 H, Lymph % (Auto) 10.5, [place] % (Auto) 7.1, Eos % (Auto) 0.0 L, Baso % (Auto) 0.3, Neut # (Auto) 5.6, Lymph # (Auto) 0.7, [place] # (Auto) 0.5, Eos # (Auto) 0.0, Baso # (Auto) 0.0, Total Counted 100, Neutrophils % (Manual) 89 H, Lymphocytes % (Manual) 4 L, Monocytes % (Manual) 7, Platelet Estimate Normal 06/07/21 05:07: Sodium 135 L, Potassium 3.0 L, Chloride 102, Carbon Dioxide 27, Anion Gap 9.0, BUN 28 H, Creatinine 1.10, Estimated Creat Clear 107, Estimated GFR 73, Est GFR ( Amer) 88, Glucose 99 D, Calcium 7.5 L I & O for Last 24 hours: Intake & Output 06/04/21 06/05/21 06/06/21 06/07/21 23:59 23:59 23:59 23:59 Intake Total 1100 / 1100 1790 / 1790 2305 / 2775 830 / 830 Output Total 1300 / 1300 2000 / 2950 950 / 950 Balance 1100 / 1100 490 / 490 305 / -175 -120 / -120 Weight 87.725 kg 89.675 kg 88.587 kg 87.685 kg Microbiology Reports for the Last 24 Hours: Microbiology 06/06/21 12:04 Sputum - Expectorated Sputum Gram Stain - Final Assessment and Plan (1) Anemia Status: Acute Qualifiers: Anemia type: unspecified type Qualified Code(s): D64.9 - Anemia, unspecified Category: Medical Code(s): D64.9 - Anemia, unspecified (2) Skin ulcer of left foot, limited to breakdown of skin Start date: 06/03/21 Start time: 12:30 Status: Acute Category: Medical Code(s): L97.521 - Non-pressure chronic ulcer of other part of left foot limited to breakdown of skin (3) Skin ulcer of right heel, limited to breakdown of skin Start date: 06/03/21 Start time: 12:30 Status: Acute Category: Medical Code(s): L97.411 - Non-pressure chronic ulcer of right heel and midfoot limited to breakdown of skin (4) Edema of both lower extremities Start date: 06/03/21 Start time: 12:30 Status: Acute Category: Medical Code(s): R60.0 - Localized edema (5) Wound of right foot Problem details: Right dorsal foot Status: Acute Category: Medical Code(s): S91.301A - Unspecified open wound, right foot, initial encounter (6) Tobacco use Status: Acute Category: Social Hx Code(s): Z72.0 - Tobacco use (7) Discoloration of skin of lower leg Status: Acute Category: Medical Code(s): L81.9 - Disorder of pigmentation, unspecified (8) Bilateral pleural effusion Status: Acute Category: Medical Code(s): J90 - Pleural effusion, not elsewhere classified (9) Acute respiratory failure with hypoxia Status: Acute Category: Medical Code(s
--- NOTE | 2021-06-07 08:56 | HMH.ACPN2 ---
Internal Medicine - PN: Subj *Date: 06/07/21 *Time: 11:50 Interval history: 45-year-old male patient sitting up in bed no respiratory distress noted at present. Current oxygenation 40 L at 60% Vapotherm. Mother is in room, podiatry is tending to bilateral feet dressing. AST/ALT increasing, Exam Vital signs and Labs for Last 24 Hours: Temp Pulse Resp BP Pulse Ox 98.7 F 65 20 129/48 L 95 06/07/21 04:00 06/07/21 08:00 06/07/21 08:00 06/07/21 08:00 06/07/21 08:00 Laboratory Results - last 24 hr 06/06/21 06:08: Total Counted 100, Neutrophils % (Manual) 90 H, Lymphocytes % (Manual) 7 L, Monocytes % (Manual) 2, Eosinophils % (Manual) 1, Platelet Estimate Normal, Hypochromasia 1+, Anisocytosis 1+, Spherocytes 1+ 06/06/21 08:30: SARS-CoV-2 (PCR) Not detected, Influenza A Untype (PCR) Not detected, Influenza Type B (PCR) Not detected 06/06/21 08:45: HIV 1&2 Ag/Ab, 4th Gen Non reactive 06/06/21 09:55: D-Dimer 2.00 H 06/06/21 10:28: Urine Color Yellow, Urine Appearance Clear, Urine pH 5.0, Ur Specific [place] <= 1.005, Urine Protein Negative, Urine Glucose (UA) Negative, Urine Ketones Negative, Urine Blood 1+, Urine Nitrate Negative, Urine Bilirubin Negative, Urine Urobilinogen 0.2, Ur Leukocyte Esterase Negative, Urine WBC Occasional, Ur Squamous Epith Cells Occasional, Urine Bacteria Trace 06/06/21 12:04: Specimen Source Left radial, O2 % 30l 60%, ABG pH 7.44, ABG pCO2 33.8 L, ABG pO2 66.9 L, ABG HCO3 22.5, ABG Total CO2 23.6, ABG O2 Saturation 92, ABG Base Excess -1.6, Adi Test Acceptable 06/06/21 12:15: ABG Methemoglobin 0.3 L 06/07/21 05:07: WBC 6.9, RBC 2.80 L, Hgb 7.8 L, Hct 24.9 L, MCV 89.0, MCH 28.0, MCHC 31.5 L, RDW 18.2 H, Plt Count 168, MPV 9.3, Neut % (Auto) 82.0 H, Lymph % (Auto) 10.5, [place] % (Auto) 7.1, Eos % (Auto) 0.0 L, Baso % (Auto) 0.3, Neut # (Auto) 5.6, Lymph # (Auto) 0.7, [place] # (Auto) 0.5, Eos # (Auto) 0.0, Baso # (Auto) 0.0, Total Counted 100, Neutrophils % (Manual) 89 H, Lymphocytes % (Manual) 4 L, Monocytes % (Manual) 7, Platelet Estimate Normal 06/07/21 05:07: Sodium 135 L, Potassium 3.0 L, Chloride 102, Carbon Dioxide 27, Anion Gap 9.0, BUN 28 H, Creatinine 1.10, Estimated Creat Clear 107, Estimated GFR 73, Est GFR ( Amer) 88, Glucose 99 D, Calcium 7.5 L I & O for Last 24 hours: Intake & Output 06/04/21 06/05/21 06/06/21 06/07/21 23:59 23:59 23:59 23:59 Intake Total 1100 / 1100 1790 / 1790 2305 / 2775 830 / 830 Output Total 1300 / 1300 2000 / 2950 950 / 950 Balance 1100 / 1100 490 / 490 305 / -175 -120 / -120 Weight 193 lb 6.4 oz 197 lb 11.2 oz 195 lb 4.8 oz 193 lb 5 oz Microbiology Reports for the Last 24 Hours: Microbiology 06/06/21 12:04 Sputum - Expectorated Sputum Gram Stain - Final - Constitutional no acute distress, chronically ill appearing - *Routine HEENT Exam Head: Present: normocephalic Eye: Present: EOMI ENT: Present: mucous membranes moist - *Routine Neck Exam Present: trachea midline. Absent: tracheal deviation - *Routine Respiratory Exam Present: crackles. Absent: accessory muscle use - *Routine Cardiovascular Exam Present: RRR - *Routine Abdominal Exam Present: soft, normoactive bowel sounds. Absent: tenderness, distended - *Routine Extremities Exam Present: full ROM, pulses intact. Absent: cyanosis, clubbing, edema - *Routine Skin Exam Present: intact, dry. Absent: cyanosis, erythema - *Routine Neurological Exam Present: alert, oriented X3. Absent: motor deficit - Routine Psychiatric Exam Present: normal affect, normal thought process. Absent: tactile hallucinations Assessment and Plan (1) Anemia Status: Acute Qualifiers: Anemia type: unspecified type Qualified Code(s): D64.9 - Anemia, unspecified Category: Medical Code(s): D64.9 - Anemia, unspecified (2) Skin ulcer of left foot, limited to breakdown of skin Start date: 06/03/21 Start time: 12:30 Status: Acute Category: Medical Code(s): L97.521 -
--- NOTE | 2021-06-07 09:07 | DIET.NUTRFU ---
Appetite/intake continues to be poor. During rounds patient was drinking his DrAkosua Jones. His mother did report he consumed toast with peanut butter today for breakfast. Ensure was sitting on bedside table not touched. DIRECTOR EPIDEMIOLOGY encouraged him to cut back on the soda and drink the Ensure to better meet his nutritional needs. Patient reported he might like it more over ice. Plans to have biopsy on abdominal nodes tomorrow. Respiratory is following, he is on Vapotherm. Wound care was also present during rounds applying dressing to feet.
--- NOTE | 2021-06-07 09:23 | HMH.PULMPN ---
Internal Medicine - PN: Subj *Date: 06/07/21 *Time: 12:56 Interval history: No acute respiratory vents overnight. Exam - Constitutional Constitutional:: Present: no acute distress, comfortable - HENMT Exam HENMT: Present: normocephalic, atraumatic - Eye Exam Eyes:: Present: normal appearance both eyes and related structures - Neck Exam Neck:: Present: normal visual inspection - Respiratory Exam Respiratory:: Present: able to speak in complete sentences, respiratory distress, crackles. Absent: wheezing - Cardiovascular Exam Cardiac:: Present: S1, S2 - GI Exam GI:: Present: soft - Skin Exam Skin: Present: warm, rash - Neurological Exam Neurological: Present: alert, awake - Extremities Exam Extremities: Present: no cyanosis, no clubbing, edema - Psychiatric Exam Psychiatric: Present: normal affect Assessment and Plan (1) Anemia Status: Acute Qualifiers: Anemia type: unspecified type Qualified Code(s): D64.9 - Anemia, unspecified Category: Medical Code(s): D64.9 - Anemia, unspecified (2) Skin ulcer of left foot, limited to breakdown of skin Start date: 06/03/21 Start time: 12:30 Status: Acute Category: Medical Code(s): L97.521 - Non-pressure chronic ulcer of other part of left foot limited to breakdown of skin (3) Skin ulcer of right heel, limited to breakdown of skin Start date: 06/03/21 Start time: 12:30 Status: Acute Category: Medical Code(s): L97.411 - Non-pressure chronic ulcer of right heel and midfoot limited to breakdown of skin (4) Edema of both lower extremities Start date: 06/03/21 Start time: 12:30 Status: Acute Category: Medical Code(s): R60.0 - Localized edema (5) Wound of right foot Problem details: Right dorsal foot Status: Acute Category: Medical Code(s): S91.301A - Unspecified open wound, right foot, initial encounter (6) Tobacco use Status: Acute Category: Social Hx Code(s): Z72.0 - Tobacco use (7) Discoloration of skin of lower leg Status: Acute Category: Medical Code(s): L81.9 - Disorder of pigmentation, unspecified (8) Bilateral pleural effusion Status: Acute Category: Medical Code(s): J90 - Pleural effusion, not elsewhere classified (9) Acute respiratory failure with hypoxia Status: Acute Category: Medical Code(s): J96.01 - Acute respiratory failure with hypoxia (10) BMI 26.0-26.9,adult Status: Acute Category: Medical Code(s): Z68.26 - Body mass index [BMI] 26.0-26.9, adult (11) Hypokalemia Status: Acute Category: Medical Code(s): E87.6 - Hypokalemia (12) Hyponatremia Status: Acute Category: Medical Code(s): E87.1 - Hypo-osmolality and hyponatremia (13) Hypocalcemia Status: Acute Category: Medical Code(s): E83.51 - Hypocalcemia (14) Retroperitoneal lymphadenopathy Status: Acute Category: Medical Code(s): R59.0 - Localized enlarged lymph nodes (15) Splenomegaly Status: Acute Category: Medical Code(s): R16.1 - Splenomegaly, not elsewhere classified (16) Lymphoma Status: Acute Qualifiers: Lymphoma type: unspecified type Lymphoma site: intra-abdominal nodes Qualified Code(s): C85.93 - Non-Hodgkin lymphoma, unspecified, intra-abdominal lymph nodes Category: Medical Code(s): C85.90 - Non-Hodgkin lymphoma, unspecified, unspecified site (17) Elevated LFTs Status: Acute Category: Medical Code(s): R79.89 - Other specified abnormal findings of blood chemistry - Assessment and plan all Dx Assessment and Plan for all problems:: #Acute on chronic hypoxic respiratory failure: #Community-acquired pneumonia: #Atypical Pneumonia 45-year-old current smoker around 1 pack smoking history. Denies any baseline respiratory symptoms. Presented to the hospital with worsening lower extremity rash and swelling and was found to be having hypoxic respiratory failure needing oxygen requirements. COVID-19 and flu PCR negative. Admissi
--- NOTE | 2021-06-07 09:55 | US_ITS ---
FINAL REPORT CLINICAL HISTORY: ELevated AST/ALT FINDINGS: Sonographic images of the liver were obtained. There is a small to moderate right pleural effusion. The liver is normal. The common duct measures 4 mm. The portal vein is normal with normal directional flow. The hepatic veins are normal. IMPRESSION: Unremarkable liver. Reviewed, Interpreted and Dictated by Sabino Scott III, MD Transcribed by Toshia Pepe Authenticated by Sabino Scott III, MD on 06/07/2021 11:57:07 AM [facility]
--- NOTE | 2021-06-07 10:59 | HMH.ORTHPN ---
Subjective Date: 06/07/21 Time: 08:30 Interval history: Patient sitting up in bed. Alert and oriented. No acute distress noted. Bilateral medial ankles and bilateral feet wounds/abrasions wound cleansed with wound cleanser. Patient wounds are limited to skin breakdown, no bedside debridement done today. Measurements: Left medial ankle 2.5 x 3.5 x 0.0 cm, right medial ankle 1.0 x 4.0 x 0.0 cm. Several abrasion/fissures noted to bilateral midfoot/lateral foot. Patient bilateral lower extremity skin is discolored, dry, cracked with fissures noted. No drainage noted. PN: Obj Ex Vital signs: Temp Pulse Resp BP Pulse Ox 98.7 F 65 20 129/48 L 95 06/07/21 04:00 06/07/21 08:00 06/07/21 08:00 06/07/21 08:00 06/07/21 08:00 - Constitutional no acute distress - Routine HEENT Exam Head: Present: normocephalic Eye: Present: EOMI, PERRL ENT: Present: mucous membranes moist - Routine Neck Exam Present: supple - Routine Respiratory Exam Absent: respiratory distress - Routine Cardiovascular Exam Present: RRR - Routine Abdominal Exam Present: soft - Routine Extremities Exam Present: pulses intact. Absent: calf tenderness - Detailed Lower Extremity Exam Ankle: Bilateral dislocation, Bilateral erythema, Bilateral tenderness, Bilateral wound, Bilateral decreased ROM, Bilateral pain with active ROM, Bilateral pain with passive ROM Foot/Toes: Bilateral deformity, Bilateral erythema, Bilateral nail abnormalities, Bilateral onychomycosis, Bilateral tenderness, Bilateral wound, Bilateral decreased ROM, Bilateral pain with active ROM, Bilateral pain with passive ROM Ankle image: 1 - Bilateral medial ankles wound limited to skin breakdown. No debridement today. Several abrasions and fissures noted to b/l feet. Patient overall feet and ankles skin is dry and cracked. All wounds cleansed with saline. Measurements: right medial ankle 1.0 x 4.0 x 0.0 cm. Left medial ankle 2.5 x 3.5 x 0.0 cm. Patient has pain with palpation of toenails. Nails are dystrophic, discolored and elongated. Patient agreed to have toenails trimmed tomorrow. - Urinary Catheter Management [place] Cath placed during this visit: no Progress Note: A&P (1) Anemia Status: Acute (2) Skin ulcer of left foot, limited to breakdown of skin Start date: 06/07/21 Start time: 08:30 Status: Acute (3) Skin ulcer of right heel, limited to breakdown of skin Start date: 06/07/21 Start time: 08:30 Status: Acute (4) Edema of both lower extremities Status: Acute (5) Wound of right foot Start date: 06/07/21 Start time: 08:30 Problem details: Right dorsal foot Status: Acute (6) Tobacco use Status: Acute (7) Discoloration of skin of lower leg Start date: 06/07/21 Start time: 08:30 Status: Acute (8) Bilateral pleural effusion Status: Acute (9) Acute respiratory failure with hypoxia Status: Acute (10) BMI 26.0-26.9,adult Status: Acute (11) Hypokalemia Status: Acute (12) Hyponatremia Status: Acute (13) Hypocalcemia Status: Acute (14) Retroperitoneal lymphadenopathy Status: Acute (15) Splenomegaly Status: Acute (16) Lymphoma Status: Acute (17) Elevated LFTs Status: Acute Assessment and Plan for All Diagnoses:: Laboratory Tests 06/07/21 06/07/21 05:07 05:07 WBC 6.9 BUN 28 H Creatinine 1.10 Estimated GFR 73 Glucose 99 D Date of Service: 06/06/21 Procedure(s): CA venous doppler LE BI FINDINGS: Color Doppler, duplex Doppler and compression sonography of the bilateral lower extremities was performed. There is no evidence of deep venous thrombosis from the level of the groin to the calf. The deep veins are patent and compressible. IMPRESSION: No evidence of deep venous thrombosis bilateral lower extremities. Patient seen and evaluated at bedside; -B/L ankle wounds cleansed wi
[2021-06-07 12:33] LABS: Lactate Dehydrogenase 932 U/L (313-618)
--- NOTE | 2021-06-07 16:53 | PC.NURSE ---
Dr. Orosco not in until .
[2021-06-08] VITALS (29 sets, daily range): BP systolic 86–128; BP diastolic 39–72; PULSE 50–85; RESP 16–28; TEMP 36.7–37; O2SAT 90–99; BMI 27.3
--- NOTE | 2021-06-08 05:30 | PC.NURSE ---
pt has rested most of shift, has remained on vapotherm 40L/60%, O2 sats 93-98%, no complaints of SOA or pain, patient is able to state name and place, has had intermittent confusion t/o shift, michele remains in place, draining dark yellow urine
[2021-06-08 06:50] LABS: Basophils % 0.1 % (0.1-2.0); Hematocrit 24.4 % (42.0-52.0); Hemoglobin 7.6 g/dL (14.1-18.0); Lymphocytes # 0.5 K/mm3 (0.7-4.5); Lymphocytes % 10.9 % (10-50); Mean Corpuscular HGB Conc 31.1 g/dL (31.8-35.4); Mean Corpuscular Hemoglobin 28.4 pg (27.0-31.2); Mean Corpuscular Volume 91.1 fl (80-94); Mean Platelet Volume 8.8 fl (7.4-10.4); Monocytes # 0.2 K/mm3 (0.1-1.0); Monocytes % 3.2 % (1.7-9.3); Neutrophils # 4.1 K/mm3 (1.8-7.8); Neutrophils % 85.7 % (37.0-80.0); Platelet Count 148 K/mm3 (142-424); Red Blood Count 2.68 M/mm3 (4.60-6.20); Red Cell Distribution Width 17.9 % (11.5-17.5); White Blood Count 4.8 K/mm3 (4.8-10.8)
[2021-06-08 07:06] LABS: Anion Gap 6.9 mEq/L (5-15); Blood Urea Nitrogen 26 mg/dl (9-20); Calcium 7.6 mg/dl (8.4-10.2); Carbon Dioxide 30 mmol/L (22.0-30.0); Chloride 102 mmol/L (98-107); Creatinine Clearance Estimated 130 mL/min (50-200); Estimated Glomerular Filt Rate 92 ml/min (>60); GFR (African American) 111 ML/MIN (>60); Glucose 132 mg/dl (74-100); Sodium 136 mmol/L (136-145)
[2021-06-08 07:09] LABS: MANUAL DIFFERENTIAL MANUAL DIFFERENTIAL (MANUAL DIFF)
[2021-06-08 07:29] LABS: Potassium 2.9 mmoL/L (3.5-5.1)
--- NOTE | 2021-06-08 07:42 | DIET.NUTRFU ---
Addendum entered by Danyell Acevedo RD, LD 06/08/21 13:10: Saw at lunch today he consumed 100% of milkshake and would like it BID, providing 644kcal and 38gm protein. When asked if he was going to eat anything else he said in a little bit, had a sandwich and soup. Did not have any soda on bedside table. Notified kitchen of changes Original Note: Patient continues to have poor po intake, needs a lot of encouragement to consume meals. Nursing reports he drank his strawberry ensure last night with family providing lots of encouragement. He continues to consume Dr. Jones. Will try a homemade shake from kitchen made with protein powder to see if he likes. Will follow up
--- NOTE | 2021-06-08 08:00 | US_ITS ---
FINAL REPORT CLINICAL HISTORY: FNA L Inguinal Lymphnode, adenopathy FINDINGS: ULTRASOUND-GUIDED RIGHT INGUINAL NODE BIOPSY TECHNIQUE: Limited images were obtained to localize region of interest. The right groin was prepped in a routine sterile fashion and locally anesthetized with 1% lidocaine. The needle was positioned within the outer periphery of the lesion. A total of 4 passes were made with a 18 gauge core biopsy needle. 2 samples were placed in formalin and 2 samples were placed within RPMI for flow cytometry. Procedure was well tolerated . CONCLUSION: 1. Technically successful ultrasound guided core biopsy of enlarged right inguinal lymph none as above. Authenticated by Lesly Jean Baptiste MD on 06/15/2021 12:05:49 AM [facility]
--- NOTE | 2021-06-08 09:00 | CT_ITS ---
FINAL REPORT CLINICAL HISTORY: confusion FINDINGS: Axial images of the head were obtained without contrast. Coronal reformatted images were also obtained.This study was performed with techniques to keep radiation doses as low as reasonably achievable (ALARA). Individualized dose reduction techniques using automated exposure control or adjustment of mA and/or kV according to the patient's size were employed. There is no evidence of intracranial hemorrhage or mass. The ventricular size is within normal limits. There is no evidence of shift of the midline structures. No abnormal extra axial fluid collection is identified. No skull abnormality is seen on the bone window images. IMPRESSION: No acute intracranial abnormality. Reviewed, Interpreted and Dictated by Sabino Scott III, MD Transcribed by Nallely Garvin Authenticated by Sabino Scott III, MD on 06/08/2021 12:29:48 PM [facility]
--- NOTE | 2021-06-08 09:03 | HMH.ACPN2 ---
Internal Medicine - PN: Subj *Date: 06/08/21 *Time: 08:40 Interval history: pt sitting up in bed, states doing well, vapertherm, family at bedside Exam Vital signs and Labs for Last 24 Hours: Temp Pulse Resp BP Pulse Ox 98.6 F 58 L 22 113/49 L 98 06/08/21 04:00 06/08/21 08:00 06/08/21 08:00 06/08/21 08:00 06/08/21 08:00 Laboratory Results - last 24 hr 06/02/21 19:15: Crossmatch ([facility]) See Detail 06/07/21 05:07: Lactate Dehydrogenase 932 H 06/08/21 05:15: WBC 4.8 D, RBC 2.68 L, Hgb 7.6 L, Hct 24.4 L, MCV 91.1, MCH 28.4, MCHC 31.1 L, RDW 17.9 H, Plt Count 148, MPV 8.8, Neut % (Auto) 85.7 H, Lymph % (Auto) 10.9, [place] % (Auto) 3.2, Eos % (Auto) 0.0 L, Baso % (Auto) 0.1, Neut # (Auto) 4.1, Lymph # (Auto) 0.5 L, [place] # (Auto) 0.2, Eos # (Auto) 0.0, Baso # (Auto) 0.0 06/08/21 05:15: Sodium 136, Potassium 2.9 L*, Chloride 102, Carbon Dioxide 30, Anion Gap 6.9, BUN 26 H, Creatinine 0.90, Estimated Creat Clear 130, Estimated GFR 92, Est GFR ( Amer) 111 D, Glucose 132 H, Calcium 7.6 L I & O for Last 24 hours: Intake & Output 06/05/21 06/06/21 06/07/21 06/08/21 11:59 11:59 11:59 11:59 Intake Total 920 / 920 1550 / 1550 3255 / 3255 3076 / 3076 Output Total 3300 / 3300 950 / 950 4200 / 4200 Balance 920 / 920 -1750 / -1750 2305 / 2305 -1124 / -1124 Weight 197 lb 11.2 oz 195 lb 4.8 oz 193 lb 5 oz 191 lb 3.2 oz Microbiology Reports for the Last 24 Hours: Microbiology 06/02/21 18:15 Blood Blood Culture - Final NO GROWTH AFTER 5 DAYS 06/02/21 18:15 Blood Blood Culture - Final NO GROWTH AFTER 5 DAYS - Constitutional no acute distress, chronically ill appearing - *Routine HEENT Exam Head: Present: normocephalic Eye: Present: PERRL ENT: Present: mucous membranes moist - *Routine Neck Exam Present: supple. Absent: lymphadenopathy - *Routine Respiratory Exam Present: CTA bilaterally - *Routine Cardiovascular Exam Present: RRR - *Routine Abdominal Exam Present: soft, normoactive bowel sounds. Absent: tenderness - *Routine Extremities Exam Absent: cyanosis, clubbing, edema - *Routine Skin Exam Present: warm. Absent: rash - *Routine Neurological Exam Present: alert, oriented X3 Assessment and Plan (1) Anemia Status: Acute Qualifiers: Anemia type: unspecified type Qualified Code(s): D64.9 - Anemia, unspecified Category: Medical Code(s): D64.9 - Anemia, unspecified (2) Skin ulcer of left foot, limited to breakdown of skin Start date: 06/07/21 Start time: 08:30 Status: Acute Category: Medical Code(s): L97.521 - Non-pressure chronic ulcer of other part of left foot limited to breakdown of skin (3) Skin ulcer of right heel, limited to breakdown of skin Start date: 06/07/21 Start time: 08:30 Status: Acute Category: Medical Code(s): L97.411 - Non-pressure chronic ulcer of right heel and midfoot limited to breakdown of skin (4) Edema of both lower extremities Start date: 06/03/21 Start time: 12:30 Status: Acute Category: Medical Code(s): R60.0 - Localized edema (5) Wound of right foot Start date: 06/07/21 Start time: 08:30 Problem details: Right dorsal foot Status: Acute Category: Medical Code(s): S91.301A - Unspecified open wound, right foot, initial encounter (6) Tobacco use Status: Acute Category: Social Hx Code(s): Z72.0 - Tobacco use (7) Discoloration of skin of lower leg Start date: 06/07/21 Start time: 08:30 Status: Acute Category: Medical Code(s): L81.9 - Disorder of pigmentation, unspecified (8) Bilateral pleural effusion Status: Acute Category: Medical Code(s): J90 - Pleural effusion, not elsewhere classified (9) Acute respiratory failure with hypoxia Status: Acute Category: Medical Code(s): J96.01 - Acute respiratory failure with hypoxia (10) BMI 26.0-26.9,adult Status: Acute Category: Medical Code(s):
--- NOTE | 2021-06-08 09:45 | HMH.PULMPN ---
Internal Medicine - PN: Subj *Date: 06/08/21 *Time: 13:26 Interval history: No acute respiratory events overnight. Patient admits continued improvement in her symptoms. Exam - Constitutional Constitutional:: Present: no acute distress, comfortable - HENMT Exam HENMT: Present: normocephalic, atraumatic - Eye Exam Eyes:: Present: normal appearance both eyes and related structures - Neck Exam Neck:: Present: normal visual inspection - Respiratory Exam Respiratory:: Present: normal breath sounds, no respiratory distress, crackles. Absent: wheezing - Cardiovascular Exam Cardiac:: Present: dyspnea on exertion, edema. Absent: chest pain - GI Exam GI:: Present: soft - Skin Exam Skin: Present: warm, rash - Neurological Exam Neurological: Present: alert, awake - Extremities Exam Extremities: Present: no cyanosis, no clubbing, pallor Assessment and Plan (1) Anemia Status: Acute Qualifiers: Anemia type: unspecified type Qualified Code(s): D64.9 - Anemia, unspecified Category: Medical Code(s): D64.9 - Anemia, unspecified (2) Skin ulcer of left foot, limited to breakdown of skin Start date: 06/07/21 Start time: 08:30 Status: Acute Category: Medical Code(s): L97.521 - Non-pressure chronic ulcer of other part of left foot limited to breakdown of skin (3) Skin ulcer of right heel, limited to breakdown of skin Start date: 06/07/21 Start time: 08:30 Status: Acute Category: Medical Code(s): L97.411 - Non-pressure chronic ulcer of right heel and midfoot limited to breakdown of skin (4) Edema of both lower extremities Start date: 06/03/21 Start time: 12:30 Status: Acute Category: Medical Code(s): R60.0 - Localized edema (5) Wound of right foot Start date: 06/07/21 Start time: 08:30 Problem details: Right dorsal foot Status: Acute Category: Medical Code(s): S91.301A - Unspecified open wound, right foot, initial encounter (6) Tobacco use Status: Acute Category: Social Hx Code(s): Z72.0 - Tobacco use (7) Discoloration of skin of lower leg Start date: 06/07/21 Start time: 08:30 Status: Acute Category: Medical Code(s): L81.9 - Disorder of pigmentation, unspecified (8) Bilateral pleural effusion Status: Acute Category: Medical Code(s): J90 - Pleural effusion, not elsewhere classified (9) Acute respiratory failure with hypoxia Status: Acute Category: Medical Code(s): J96.01 - Acute respiratory failure with hypoxia (10) BMI 26.0-26.9,adult Status: Acute Category: Medical Code(s): Z68.26 - Body mass index [BMI] 26.0-26.9, adult (11) Hypokalemia Status: Acute Category: Medical Code(s): E87.6 - Hypokalemia (12) Hyponatremia Status: Acute Category: Medical Code(s): E87.1 - Hypo-osmolality and hyponatremia (13) Hypocalcemia Status: Acute Category: Medical Code(s): E83.51 - Hypocalcemia (14) Retroperitoneal lymphadenopathy Status: Acute Category: Medical Code(s): R59.0 - Localized enlarged lymph nodes (15) Splenomegaly Status: Acute Category: Medical Code(s): R16.1 - Splenomegaly, not elsewhere classified (16) Lymphoma Status: Acute Qualifiers: Lymphoma type: unspecified type Lymphoma site: intra-abdominal nodes Qualified Code(s): C85.93 - Non-Hodgkin lymphoma, unspecified, intra-abdominal lymph nodes Category: Medical Code(s): C85.90 - Non-Hodgkin lymphoma, unspecified, unspecified site (17) Elevated LFTs Status: Acute Category: Medical Code(s): R79.89 - Other specified abnormal findings of blood chemistry - Assessment and plan all Dx Assessment and Plan for all problems:: #Acute on chronic hypoxic respiratory failure: #Community-acquired pneumonia: #Atypical Pneumonia 45-year-old current smoker around 1 pack smoking history. Denies any baseline respiratory symptoms. Presented to the hospital with worsening lower extremity rash and swelling and was
[2021-06-08 10:01] LABS: Alanine Aminotransferase 275 U/L (12-78); Albumin Level 2.5 g/dl (3.5-5.0); Alkaline Phosphatase 80 U/L (38-126); Aspartate Amino Transferase 141 U/L (17-59); Bilirubin,Direct 0.5 mg/dl (0.0-0.4); Bilirubin,Indirect 0.3 mg/dL (0.0-0.9); Bilirubin,Total 0.8 mg/dl (0.2-1.3); Bilirubin,Unconjugated 0.3 mg/dL (0.0-1.1); Total Protein,Serum 4.8 g/dl (6.3-8.2)
--- NOTE | 2021-06-08 10:07 | SW/DCPLANNER ---
Addendum entered by Kristen Shields 06/13/21 10:32: The plan is for this patient to discharge home today. Patient stated that he already has an apt scheduled for this week w/ [facility] and patient is agreeable to return to [facility] outpatient PT: Mansoor is aware of plan. Patient will discharge home today. Original Note: Patients brother (Eloy) spoke with nursing staff yesterday and asked that I contact him regarding Power of [employer] information for this patient. I did call Eloy back yesterday with no answer/VM left. I have attempted to contact Eloy this AM: no answer at this time.
--- NOTE | 2021-06-08 10:49 | HMH.ACPN ---
Internal Medicine - PN: Subj *Date: 06/08/21 *Time: 10:49 Exam Vital signs and Labs for Last 24 Hours: Temp Pulse Resp BP Pulse Ox 98.6 F 58 L 22 113/49 L 98 06/08/21 04:00 06/08/21 08:00 06/08/21 08:00 06/08/21 08:00 06/08/21 08:00 Laboratory Results - last 24 hr 06/02/21 19:15: Crossmatch ([facility]) See Detail 06/07/21 05:07: Lactate Dehydrogenase 932 H 06/08/21 05:15: WBC 4.8 D, RBC 2.68 L, Hgb 7.6 L, Hct 24.4 L, MCV 91.1, MCH 28.4, MCHC 31.1 L, RDW 17.9 H, Plt Count 148, MPV 8.8, Neut % (Auto) 85.7 H, Lymph % (Auto) 10.9, [place] % (Auto) 3.2, Eos % (Auto) 0.0 L, Baso % (Auto) 0.1, Neut # (Auto) 4.1, Lymph # (Auto) 0.5 L, [place] # (Auto) 0.2, Eos # (Auto) 0.0, Baso # (Auto) 0.0 06/08/21 05:15: Sodium 136, Potassium 2.9 L*, Chloride 102, Carbon Dioxide 30, Anion Gap 6.9, BUN 26 H, Creatinine 0.90, Estimated Creat Clear 130, Estimated GFR 92, Est GFR ( Amer) 111 D, Glucose 132 H, Calcium 7.6 L 06/08/21 05:15: Total Bilirubin 0.8, Direct Bilirubin 0.5 H, Conjugated Bilirubin 0.0, Indirect Bilirubin 0.3, Unconjugated Bilirubin 0.3, AST 141 H D, ALT 275 H D, Alkaline Phosphatase 80, Total Protein 4.8 L, Albumin 2.5 L I & O for Last 24 hours: Intake & Output 06/05/21 06/06/21 06/07/21 06/08/21 23:59 23:59 23:59 23:59 Intake Total 1790 / 1790 2305 / 2775 3002 / 3002 1024 / 1024 Output Total 1300 / 1300 2000 / 2950 3350 / 4850 1800 / 1800 Balance 490 / 490 305 / -175 -348 / -1848 -776 / -776 Weight 89.675 kg 88.587 kg 87.685 kg 86.727 kg Microbiology Reports for the Last 24 Hours: Microbiology 06/06/21 12:04 Sputum - Expectorated Sputum Gram Stain - Final 06/06/21 12:04 Sputum - Expectorated Sputum Sputum Culture - Preliminary 06/02/21 18:15 Blood Blood Culture - Final NO GROWTH AFTER 5 DAYS 06/02/21 18:15 Blood Blood Culture - Final NO GROWTH AFTER 5 DAYS Assessment and Plan (1) Anemia Status: Acute Qualifiers: Anemia type: unspecified type Qualified Code(s): D64.9 - Anemia, unspecified Category: Medical Code(s): D64.9 - Anemia, unspecified (2) Skin ulcer of left foot, limited to breakdown of skin Start date: 06/07/21 Start time: 08:30 Status: Acute Category: Medical Code(s): L97.521 - Non-pressure chronic ulcer of other part of left foot limited to breakdown of skin (3) Skin ulcer of right heel, limited to breakdown of skin Start date: 06/07/21 Start time: 08:30 Status: Acute Category: Medical Code(s): L97.411 - Non-pressure chronic ulcer of right heel and midfoot limited to breakdown of skin (4) Edema of both lower extremities Start date: 06/03/21 Start time: 12:30 Status: Acute Category: Medical Code(s): R60.0 - Localized edema (5) Wound of right foot Start date: 06/07/21 Start time: 08:30 Problem details: Right dorsal foot Status: Acute Category: Medical Code(s): S91.301A - Unspecified open wound, right foot, initial encounter (6) Tobacco use Status: Acute Category: Social Hx Code(s): Z72.0 - Tobacco use (7) Discoloration of skin of lower leg Start date: 06/07/21 Start time: 08:30 Status: Acute Category: Medical Code(s): L81.9 - Disorder of pigmentation, unspecified (8) Bilateral pleural effusion Status: Acute Category: Medical Code(s): J90 - Pleural effusion, not elsewhere classified (9) Acute respiratory failure with hypoxia Status: Acute Category: Medical Code(s): J96.01 - Acute respiratory failure with hypoxia (10) BMI 26.0-26.9,adult Status: Acute Category: Medical Code(s): Z68.26 - Body mass index [BMI] 26.0-26.9, adult (11) Hypokalemia Status: Acute Category: Medical Code(s): E87.6 - Hypokalemia (12) Hyponatremia Status: Acute Category: Medical Code(s): E87.1 - Hypo-osmolality and hyponatremia (13) Hypocalcemia Status: Acute Category: Medical Code(s): E83.51 - Hypocalcemia (14
[2021-06-08 11:03] LABS: Lymphocytes % 10 % (10-50); Monocytes % 2 % (2-9); Neutrophils % 88 % (42-76); Platelet Estimate Normal; Total Cells Counted 100
[2021-06-08 12:12] LABS: Hep A Ab, IgM Negative (Negative); Hepatitis B Core Antibody IgM Negative (Negative); Hepatitis B Surface Antigen Negative (Negative); Hepatitis C Antibody <0.1 s/co ratio (0.0-0.9)
--- NOTE | 2021-06-08 13:10 | HMH.CNCARD ---
History of Present Illness Consult date: 06/08/21 Requesting physician: Luis Eduardo Schneider Consult reason: shortness of breath Chief complaint: SOA History of present illness: This is a 45-year-old gentleman who was initially admitted to the hospital with a rash to his lower extremities and edema. The patient had hypoxic respiratory failure and was placed on a Vapotherm mask. He is now currently on high flow oxygen. The patient has a work-up for pneumonia and had findings concerning for lymphoma. The patient underwent biopsy today for an enlarged node that is concerning for lymphoma. Cardiology was consulted due to an abnormal echocardiogram and concerns that his shortness of breath may be ischemic in nature since he does have a history of coronary artery disease with stents placed in the past. The patient denies any chest pain or pressure. He states he has been short of breath but is currently denying any shortness of breath. He denies any lower extremity edema. He denies any fever, chills, nausea, vomiting, diarrhea, PND or orthopnea. [facility] History I have reviewed the patient's past medical history: Yes Medical History: Reports:: Atherosclerotic Heart Disease, Congestive Heart Failure, Coronary Artery Disease, Hyperlipidemia, Hypertension, MRSA, Myocardial Infarction, Peripheral Artery Disease, Peripheral Vascular Disease Denies:: Cancer, Diabetes Mellitus Type 1, Diabetes Mellitus Type 2 *Have you ever received a pneumonia vaccine?: No *Have you received a flu vaccine this season?: No Other Medical History: Reports: Arthritis Other Surgeries: Yes: Appendectomy, Cardiac Catheterization, Cholecystectomy, Coronary Stent, EGD, Other Amputation: No Fractures: No - *Social History Last grade of school completed: High school graduate Smoking Status: Current every day smoker Tobacco Type: cigarettes # Packs/Day (cigarettes): 2 #Yrs smoked (if former smoker): 15 Alcohol Intake: never Substance Use Type: painkillers *Occupational Status:: unemployed Housing: apartment Household Members: family *Travel in the last 8 weeks: None Family Hx:: Cancer, Coronary Artery Disease, Diabetes, Heart Attack, Hyperlipidemia, Hypertension, Kidney Disease, Alcoholism Meds Home Medications Medication Instructions Recorded Confirmed Type Aspirin [Aspir 81] 81 mg PO DAILY 05/05/18 06/02/21 History Buprenorphine HCl/Naloxone HCl 2 tab SL DAILY 06/21/18 06/02/21 History [Buprenorphin-Naloxon 8-2 mg Sl] lisinopril 2.5 mg tablet 2.5 mg PO DAILY tab 01/29/20 06/02/21 History potassium chloride 20 mEq 20 meq PO DAILY PRN tab 12/30/20 06/02/21 History tablet,extended release Clopidogrel Bisulfate [Plavix] 75 mg PO DAILY 06/02/21 06/02/21 History Famotidine 40 mg PO DAILY 06/02/21 06/02/21 History Metoprolol Succinate [Metoprolol 25 mg PO DAILY 06/02/21 06/02/21 History Succinate 25mg Tablet*] Omeprazole 20 mg PO DAILY 06/02/21 06/02/21 History Spironolactone 50 mg PO DAILY 06/02/21 06/02/21 History Torsemide 10 mg PO DAILY 06/02/21 06/02/21 History Venlafaxine HCl [Effexor XR 150mg] 150 mg PO DAILY 06/02/21 06/02/21 History Venlafaxine HCl [Effexor Xr] 75 mg PO DAILY 06/02/21 06/02/21 History Atorvastatin Calcium [Lipitor 40mg 40 mg PO DAILY 06/03/21 06/03/21 History Tab] Allergies Allergy/AdvReac Type Severity Reaction Status Date / Time cephalexin [From Keflex] Allergy Verified 05/10/21 11:01 ciprofloxacin [From Cipro] Allergy Verified 05/10/21 11:01 tramadol Allergy Verified 05/10/21 11:01 Exam Vital signs and Labs for Last 24 Hours: Temp Pulse Resp BP Pulse Ox 98.6 F 54 L 20 91/46 L 93 L 06/08/21 04:00 06/08/21 12:05 06/08/21 12:00 06/08/21 12:00 06/08/21 12:05 Laboratory Results - last 24 hr 06/07/21 10:05: Hepatitis A IgM Ab Negative, Hep Bs Antigen Negative, Hep B Core IgM Ab Negative, Hepatitis C Antibody <0.1 06/08/21 05:15: WBC 4.8 D, RBC 2.68 L, Hgb 7.6 L, Hct 24.4 L, MCV 91.1, MCH 28.4, MCHC 31.1
--- NOTE | 2021-06-08 13:17 | CT_ITS ---
FINAL REPORT TECHNIQUE: Then section axial CT images of the chest were obtained with contrast. Three-D reformatted images were also obtained.This study was performed with techniques to keep radiation doses as low as reasonably achievable (ALARA). Individualized dose reduction techniques using automated exposure control or adjustment of mA and/or kV according to the patient''s size were employed. CLINICAL HISTORY: sob, pulmon htn COMPARISON: 06/04/2021 FINDINGS: There is no evidence of pulmonary embolism. There is no evidence of thoracic aortic aneurysm or dissection. There is mild mediastinal adenopathy which is stable, nonspecific. There are moderate to large bilateral pleural effusions, worse since prior. There is bilateral lower lobe atelectasis. Bilateral pulmonary groundglass opacities are significantly worse, favor edema. Note is made of gynecomastia. There is a small amount of ascites. There is mild anasarca. The patient is status post cholecystectomy. IMPRESSION: No evidence of pulmonary embolism. Worsening bilateral pleural effusions. Worsening pulmonary groundglass opacities, favor edema. Small amount of ascites and mild anasarca. Reviewed, Interpreted and Dictated by Sabino Scott III, MD Transcribed by Toshia Pepe Authenticated by Sabino Scott III, MD on 06/08/2021 03:02:53 PM [facility]
[2021-06-08 15:07] LABS: Chloride 100 mmol/L (98-107); Sodium 133 mmol/L (136-145)
[2021-06-08 15:09] LABS: Basophils % 0.3 % (0.1-2.0); Eosinophils % 0.1 % (0.1-12.0); Hematocrit 25.8 % (42.0-52.0); Hemoglobin 7.7 g/dL (14.1-18.0); Lymphocytes # 0.4 K/mm3 (0.7-4.5); Lymphocytes % 7.4 % (10-50); Mean Corpuscular HGB Conc 29.9 g/dL (31.8-35.4); Mean Corpuscular Volume 93.5 fl (80-94); Mean Platelet Volume 9.9 fl (7.4-10.4); Monocytes # 0.3 K/mm3 (0.1-1.0); Monocytes % 4.5 % (1.7-9.3); Neutrophils % 87.7 % (37.0-80.0); Platelet Count 144 K/mm3 (142-424); Red Blood Count 2.76 M/mm3 (4.60-6.20); White Blood Count 5.7 K/mm3 (4.8-10.8)
[2021-06-08 15:10] LABS: Blood Urea Nitrogen 27 mg/dl (9-20); Creatinine Clearance Estimated 117 mL/min (50-200); Estimated Glomerular Filt Rate 82 ml/min (>60); GFR (African American) 99 ML/MIN (>60)
[2021-06-08 15:11] LABS: Calcium 7.2 mg/dl (8.4-10.2); Carbon Dioxide 29 mmol/L (22.0-30.0); Glucose 149 mg/dl (74-100)
[2021-06-08 15:14] LABS: MANUAL DIFFERENTIAL MANUAL DIFFERENTIAL (MANUAL DIFF)
[2021-06-08 16:04] LABS: Anisocytosis 2+; Lymphocytes % 7 % (10-50); Monocytes % 1 % (2-9); Neutrophils % 91 % (42-76); Platelet Estimate Normal; Total Cells Counted 100
--- NOTE | 2021-06-08 16:06 | PC.NURSE ---
Patient resting comfortably in bed at this time, much more alert than previous day, presently alert and oriented x4, perrla, HR reg, NSR on telemetry, lung sounds diminished t/o, has been weaned to high winnie NC, abd soft and nontender, active bowel sounds in all quads, po intake has improved today, us guided biopsy, CT head, and CT PE protocol completed today, patient tolerated well, FC patent and draining clear dark urine at bedside, BLE dressings changed this shift, peripheral pulses 1+, denies any cp or soa, vss, patient to receive 2 units PRBC today.
[2021-06-09] VITALS (38 sets, daily range): BP systolic 94–158; BP diastolic 42–90; PULSE 60–84; RESP 14–24; TEMP 36.7–37.1; O2SAT 90–100; BMI 28.1
--- NOTE | 2021-06-09 | IR_ITS ---
APPROVED REPORT Patient Location: Inpatient PROCEDURES Right heart catheterization Left heart catheterization Left ventriculogram Selective coronary angiogram INDICATION Known ischemic heart disease, Biventricular congestive heart failure, Recalcitrant congestive heart failure Informed consent was obtained prior to the procedure. COMPLICATIONS None Estimated Blood Loss: Less than 10 mls TECHNIQUE One percent lidocaine was used to anesthetize the right anterior aspect of the right wrist. The right radial artery was accessed via the Seldinger technique and a 6 Ivorian hydrophilic sheath was placed in the right radial artery. Following this one percent lidocaine was used to anesthetize the right anterior aspect of the right neck. The right internal jugular vein was accessed via the Seldinger technique and a 7 Ivorian sheath was placed in the right internal jugular vein. Following this an arterial cocktail was administered using 5000U heparin, 2.5 mg verapamil, 1mg Lidocaine and 800mcg nitroglycerin into the right radial sheath. A papa catheter was used to perform left heart catheterization left ventriculogram and selective coronary angiography while a [place] catheter was used to perform right heart catheterization. Saturations were obtained in the pulmonary artery and right atrium. At the end of the procedure the arterial sheath was removed good hemostasis was achieved using Traclet band. Patient was transferred to the postop holding area in stable condition for venous sheath removal. ANGIOGRAPHIC RESULTS The left main artery Normal The left anterior descending artery Has proximal 10% luminal irregularities with a mid vessel stent which is widely patent with minimal in-stent restenosis. There are 30% stenoses along tortuous bends The circumflex artery Is codominant and has mild 10 to 20% luminal irregularities The right coronary artery Is a codominant vessel has a stent in the proximal to mid segment which is widely patent with minimal in-stent restenosis. There are 10 to 20% stenoses distal to the stent The ABREU ventriculogram reveals Normal 65% The left ventricular end-diastolic pressure 25 mmHg Right atrial pressure 16 mmHg Right ventricular pressure 50/17 mmHg Pulmonary artery pressure 45/25 mmHg Pulmonary occlusion pressure 25 mmHg Right atrial saturation 69% Pulmonary artery saturation 68% IMPRESSION Widely patent stents as described above with otherwise nonocclusive coronary artery disease in the remaining segments Normal ejection fraction Elevated LVEDP consistent with diastolic dysfunction Moderate pulmonary artery hypertension consistent with group 2 which stems from diastolic heart failure PLAN 1. Higher dose diuretics 2. Treatment of diastolic dysfunction 3. Medical management for ischemic heart disease Electronically signed by : George Ayala MD 06/09/2021 16:50:57
--- NOTE | 2021-06-09 04:15 | PC.NURSE ---
post H&H being drawn with morning labs
[2021-06-09 04:33] LABS: Basophils % 0.4 % (0.1-2.0); Eosinophils % 0.1 % (0.1-12.0); Lymphocytes # 0.5 K/mm3 (0.7-4.5); Lymphocytes % 6.8 % (10-50); Mean Corpuscular HGB Conc 30.5 g/dL (31.8-35.4); Mean Corpuscular Hemoglobin 28.2 pg (27.0-31.2); Mean Corpuscular Volume 92.2 fl (80-94); Mean Platelet Volume 10.5 fl (7.4-10.4); Monocytes # 0.4 K/mm3 (0.1-1.0); Monocytes % 4.7 % (1.7-9.3); Neutrophils % 88.1 % (37.0-80.0); Platelet Count 148 K/mm3 (142-424); Red Blood Count 3.37 M/mm3 (4.60-6.20); Red Cell Distribution Width 17.3 % (11.5-17.5)
[2021-06-09 04:37] LABS: MANUAL DIFFERENTIAL MANUAL DIFFERENTIAL (MANUAL DIFF)
[2021-06-09 04:40] LABS: Hemoglobin 9.5 g/dL (14.1-18.0)
[2021-06-09 04:43] LABS: Anion Gap 6.4 mEq/L (5-15); Blood Urea Nitrogen 22 mg/dl (9-20); Calcium 7.8 mg/dl (8.4-10.2); Carbon Dioxide 28 mmol/L (22.0-30.0); Chloride 103 mmol/L (98-107); Creatinine Clearance Estimated 146 mL/min (50-200); Estimated Glomerular Filt Rate 106 ml/min (>60); GFR (African American) 128 ML/MIN (>60); Glucose 135 mg/dl (74-100); HDL Cholesterol 15 mg/dl (40-60); Potassium 3.4 mmoL/L (3.5-5.1); Sodium 134 mmol/L (136-145); Triglycerides 43 mg/dl (30-150); VLDL Cholesterol 9 mg/dL (0-40)
[2021-06-09 04:54] LABS: Chol/HDL Ratio 3.3 (1-3.5); Cholesterol < 50 mg/dl (140-200); Direct LDL Cholesterol < 30.00 mg/dL (100-129)
[2021-06-09 05:21] LABS: Lymphocytes % 11 % (10-50); Monocytes % 4 % (2-9); Neutrophils % 85 % (42-76); Platelet Estimate Normal; Stomatocytes 1+; Total Cells Counted 100
--- NOTE | 2021-06-09 08:35 | PC.NURSE ---
Mily EDUARDO podiatry at changing bilateral ankle dressings. Order changed to every other day per podiatry. Dressing includes the following: betadine soaked gauze to open area, dry 4x4 gauze, wrapped in kerlix, and then wrapped in SANDRA bandage. Left medial ankle with stage II ulcer. Hyperpigmentation noted to BLE. Bilateral pedal and PT pulses not palpable. BLE warm.
--- NOTE | 2021-06-09 09:12 | HMH.ACPN2 ---
Internal Medicine - PN: Subj *Date: 06/09/21 *Time: 09:17 Interval history: 45-year-old male patient sitting up in bed resting quietly he reports he feels better today than yesterday oxygen has been decreased from Vapotherm to 15 L high flow nasal cannula. Hemoglobin yesterday was 7.6 he received 2 units of packed red blood cells this morning is 9.5, he will be going for right and left cardiac catheterization today. He denies any questions regarding procedure, mother is in room. Exam Vital signs and Labs for Last 24 Hours: Temp Pulse Resp BP Pulse Ox 98.1 F 66 22 116/55 L 93 L 06/09/21 08:00 06/09/21 08:00 06/09/21 08:00 06/09/21 08:00 06/09/21 08:00 Laboratory Results - last 24 hr 06/07/21 10:05: Hepatitis A IgM Ab Negative, Hep Bs Antigen Negative, Hep B Core IgM Ab Negative, Hepatitis C Antibody <0.1 06/08/21 05:15: Total Counted 100, Neutrophils % (Manual) 88 H, Lymphocytes % (Manual) 10, Monocytes % (Manual) 2, Platelet Estimate Normal 06/08/21 05:15: Total Bilirubin 0.8, Direct Bilirubin 0.5 H, Conjugated Bilirubin 0.0, Indirect Bilirubin 0.3, Unconjugated Bilirubin 0.3, AST 141 H D, ALT 275 H D, Alkaline Phosphatase 80, Total Protein 4.8 L, Albumin 2.5 L 06/08/21 14:50: WBC 5.7, RBC 2.76 L, Hgb 7.7 L, Hct 25.8 L, MCV 93.5, MCH 28.0, MCHC 29.9 L, RDW 18.0 H, Plt Count 144, MPV 9.9, Neut % (Auto) 87.7 H, Lymph % (Auto) 7.4 L, [place] % (Auto) 4.5, Eos % (Auto) 0.1, Baso % (Auto) 0.3, Neut # (Auto) 5.0, Lymph # (Auto) 0.4 L, [place] # (Auto) 0.3, Eos # (Auto) 0.0, Baso # (Auto) 0.0, Total Counted 100, Neutrophils % (Manual) 91 H, Lymphocytes % (Manual) 7 L, Monocytes % (Manual) 1 L, Basophils % (Manual) 1.0, Platelet Estimate Normal, Anisocytosis 2+ 06/08/21 14:50: Sodium 133 L, Potassium 4.0 D, Chloride 100, Carbon Dioxide 29, Anion Gap 8.0, BUN 27 H, Creatinine 1.00, Estimated Creat Clear 117, Estimated GFR 82, Est GFR ( Amer) 99, Glucose 149 H, Calcium 7.2 L 06/08/21 16:15: Blood Type O Positive, Antibody Screen Negative, Crossmatch (G) See Detail 06/09/21 04:20: WBC 8.0 D, RBC 3.37 L, Hgb 9.5 L D, Hct 31.0 L, MCV 92.2, MCH 28.2, MCHC 30.5 L, RDW 17.3, Plt Count 148, MPV 10.5 H, Neut % (Auto) 88.1 H, Lymph % (Auto) 6.8 L, [place] % (Auto) 4.7, Eos % (Auto) 0.1, Baso % (Auto) 0.4, Neut # (Auto) 7.0, Lymph # (Auto) 0.5 L, [place] # (Auto) 0.4, Eos # (Auto) 0.0, Baso # (Auto) 0.0, Total Counted 100, Neutrophils % (Manual) 85 H, Lymphocytes % (Manual) 11, Monocytes % (Manual) 4, Platelet Estimate Normal, RBC Morphology Not Reportable, Stomatocytes 1+ 06/09/21 04:20: Sodium 134 L, Potassium 3.4 L, Chloride 103, Carbon Dioxide 28, Anion Gap 6.4, BUN 22 H, Creatinine 0.80, Estimated Creat Clear 146, Estimated GFR 106, Est GFR ( Amer) 128 D, Glucose 135 H, Calcium 7.8 L 06/09/21 04:20: Triglycerides 43, Cholesterol < 50 L, LDL Cholesterol Direct < 30.00 L, VLDL Cholesterol 9, HDL Cholesterol 15 L, Cholesterol/HDL Ratio 3.3 I & O for Last 24 hours: Intake & Output 06/06/21 06/07/21 06/08/21 06/09/21 23:59 23:59 23:59 23:59 Intake Total 2305 / 2775 3002 / 3002 2983 / 3223 947 / 947 Output Total 1999 / 2949 3350 / 4850 3570 / 3570 750 / 750 Balance 305 / -175 -348 / -1848 -587 / -347 197 / 197 Weight 195 lb 4.8 oz 193 lb 5 oz 191 lb 3.2 oz 196 lb 11.2 oz Microbiology Reports for the Last 24 Hours: Microbiology 06/06/21 12:04 Sputum - Expectorated Sputum Gram Stain - Final 06/06/21 12:04 Sputum - Expectorated Sputum Sputum Culture - Final Yeast - Constitutional no acute distress, chronically ill appearing - *Routine HEENT Exam Head: Present: normocephalic Eye: Present: EOMI ENT: Present: mucous membranes moist - *Routine Neck Exam Present: trachea midline. Absent: tracheal deviation - *Routine Respiratory Exam Present: crackles. Absent: accessory muscle use - *Routine Cardiovascular Exam Present: RRR - *Routine Abdominal Exam Present: soft, normoactive bowel sound
--- NOTE | 2021-06-09 09:16 | HMH.PULMPN ---
Internal Medicine - PN: Subj *Date: 06/09/21 *Time: 10:52 Interval history: No acute respiratory events overnight. Patient admits continued improvement in his respiratory symptoms. Exam - Constitutional Constitutional:: Present: no acute distress, comfortable - HENMT Exam HENMT: Present: normocephalic - Eye Exam Eyes:: Present: normal appearance both eyes and related structures - Neck Exam Neck:: Present: normal visual inspection - Respiratory Exam Respiratory:: Present: able to speak in complete sentences, no respiratory distress, crackles. Absent: wheezing - Cardiovascular Exam Cardiac:: Present: S1, S2 - GI Exam GI:: Present: soft - Skin Exam Skin: Present: warm, no rash, rash - Neurological Exam Neurological: Present: alert, awake, normal cognition - Extremities Exam Extremities: Present: no cyanosis, no clubbing - Psychiatric Exam Psychiatric: Present: normal affect Assessment and Plan (1) Anemia Status: Acute Qualifiers: Qualified Code(s): D64.9 - Anemia, unspecified Category: Medical Code(s): D64.9 - Anemia, unspecified (2) Skin ulcer of left foot, limited to breakdown of skin Start date: 06/07/21 Start time: 08:30 Status: Acute Category: Medical Code(s): L97.521 - Non-pressure chronic ulcer of other part of left foot limited to breakdown of skin (3) Skin ulcer of right heel, limited to breakdown of skin Start date: 06/07/21 Start time: 08:30 Status: Acute Category: Medical Code(s): L97.411 - Non-pressure chronic ulcer of right heel and midfoot limited to breakdown of skin (4) Edema of both lower extremities Start date: 06/03/21 Start time: 12:30 Status: Acute Category: Medical Code(s): R60.0 - Localized edema (5) Wound of right foot Start date: 06/07/21 Start time: 08:30 Problem details: Right dorsal foot Status: Acute Category: Medical Code(s): S91.301A - Unspecified open wound, right foot, initial encounter (6) Tobacco use Status: Acute Category: Social Hx Code(s): Z72.0 - Tobacco use (7) Discoloration of skin of lower leg Start date: 06/07/21 Start time: 08:30 Status: Acute Category: Medical Code(s): L81.9 - Disorder of pigmentation, unspecified (8) Bilateral pleural effusion Status: Acute Category: Medical Code(s): J90 - Pleural effusion, not elsewhere classified (9) Acute respiratory failure with hypoxia Status: Acute Category: Medical Code(s): J96.01 - Acute respiratory failure with hypoxia (10) BMI 26.0-26.9,adult Status: Acute Category: Medical Code(s): Z68.26 - Body mass index [BMI] 26.0-26.9, adult (11) Hypokalemia Status: Acute Category: Medical Code(s): E87.6 - Hypokalemia (12) Hyponatremia Status: Acute Category: Medical Code(s): E87.1 - Hypo-osmolality and hyponatremia (13) Hypocalcemia Status: Acute Category: Medical Code(s): E83.51 - Hypocalcemia (14) Retroperitoneal lymphadenopathy Status: Acute Category: Medical Code(s): R59.0 - Localized enlarged lymph nodes (15) Splenomegaly Status: Acute Category: Medical Code(s): R16.1 - Splenomegaly, not elsewhere classified (16) Lymphoma Status: Acute Qualifiers: Qualified Code(s): C85.93 - Non-Hodgkin lymphoma, unspecified, intra-abdominal lymph nodes Category: Medical Code(s): C85.90 - Non-Hodgkin lymphoma, unspecified, unspecified site (17) Elevated LFTs Status: Acute Category: Medical Code(s): R79.89 - Other specified abnormal findings of blood chemistry - Assessment and plan all Dx Assessment and Plan for all problems:: #Acute on chronic hypoxic respiratory failure: #Community-acquired pneumonia: #Atypical Pneumonia 45-year-old current smoker around 1 pack smoking history. Denies any baseline respiratory symptoms. Presented to the hospital with worsening lower extremity rash and swelling and was found to be having hypoxic respiratory failure needi
--- NOTE | 2021-06-09 09:29 | HMH.ORTHPN ---
Subjective Date: 06/09/21 <Mily Wyatt - 06/09/21 09:46> Time: 08:00 <Mily Wyatt 06/09/21 09:46> Interval history: Patient sitting up in bed. Alert and oriented. Family remain at bedside. No acute distress noted. Bilateral medial ankles and bilateral feet wounds/abrasions wound cleansed with wound cleanser. Patient wounds are limited to skin breakdown, no bedside debridement done today. Measurements: Left medial ankle 2.5 x 3.5 x 0.0 cm, right medial ankle 1.0 x 4.0 x 0.0 cm. Several abrasion/fissures noted to bilateral midfoot/lateral foot. Patient bilateral lower extremity skin is discolored, dry, cracked with fissures noted. No drainage noted. <Mily Wyatt - 06/09/21 10:45> PN: Obj Ex Vital signs: Temp Pulse Resp BP Pulse Ox 98.0 F 64 17 130/73 100 06/09/21 17:35 06/09/21 18:04 06/09/21 18:04 06/09/21 18:04 06/09/21 18:04 <Kae Bhatt - 06/09/21 18:07> Temp Pulse Resp BP Pulse Ox 98.1 F 66 22 116/55 L 93 L 06/09/21 08:00 06/09/21 08:00 06/09/21 08:00 06/09/21 08:00 06/09/21 08:00 <Mily Wyatt - 06/09/21 09:46> - Constitutional no acute distress <Mily Wyatt - 06/09/21 11:37> - Routine HEENT Exam Head: Present: normocephalic <Mily Wyatt 06/09/21 11:37> Eye: Present: EOMI, PERRL <Mily Wyatt 06/09/21 11:37> ENT: Present: mucous membranes moist <Mily Wyatt - 06/09/21 11:37> - Routine Neck Exam Present: supple <YoselinMily 06/09/21 11:37> - Routine Respiratory Exam Absent: respiratory distress <MwMily esquivel - 06/09/21 11:37> - Routine Cardiovascular Exam Present: RRR <Mily Wyatt 06/09/21 11:37> - Routine Abdominal Exam Present: soft <Mily Wyatt 06/09/21 11:37> - Routine Extremities Exam Present: pulses intact. Absent: calf tenderness <Mily Wyatt 06/09/21 11:37> - Detailed Lower Extremity Exam Ankle: Bilateral dislocation, Bilateral erythema, Bilateral tenderness, Bilateral wound, Bilateral decreased ROM, Bilateral pain with active ROM <Mily Wyatt 06/09/21 11:37> Foot/Toes: Bilateral erythema, Bilateral hammer toe, Bilateral nail abnormalities, Bilateral onychomycosis, Bilateral tenderness, Bilateral wound <Mily Wyatt 06/09/21 11:37> Leg image: 1 - 1 - Bilateral medial ankles wound limited to skin breakdown. No debridement today. Several abrasions and fissures noted to b/l feet. Patient overall feet and ankles skin is dry and cracked. All wounds cleansed with saline. Measurements: right medial ankle 1.0 x 4.0 x 0.0 cm. Left medial ankle 2.5 x 3.5 x 0.0 cm. Patient has pain with palpation of toenails. Nails are dystrophic, discolored and elongated. Patient agreed to have toenails trimmed today. Toenails 1-10 crambled, painfull, with subungual debris noted. <Mily Wyatt - 06/09/21 11:37> - Urinary Catheter Management [place] Cath placed during this visit: no <Kae Bhatt - 06/09/21 18:07> no <Mily Wyatt - 06/09/21 13:25> Progress Note: A&P (1) Anemia Status: Acute (2) Skin ulcer of left foot, limited to breakdown of skin Start date: 06/09/21 Start time: 08:00 Status: Acute (3) Skin ulcer of right heel, limited to breakdown of skin Start date: 06/09/21 Start time: 08:00 Status: Acute (4) Edema of both lower extremities Status: Acute (5) Wound of right foot Start date: 06/09/21 Start time: 08:00 Problem details: Right dorsal foot Status: Acute (6) Tobacco use Status: Acute (7) Discoloration of skin of lower leg Start date: 06/09/21 Start time: 08:00 Status: Acute (8) Bilateral pleural effusion Status: Acute (9) Acute respiratory failure with hypoxia Status: Acute (10) BMI 26.0-26.9,adult Status: Acute (11) Hypokalemia Status: Acute (12) Hyponatremia Status:
--- NOTE | 2021-06-09 09:31 | PC.NURSE ---
per Radha Márquez APRN, it is ok to give AM dose of Suboxone.
--- NOTE | 2021-06-09 09:46 | HMH.PNCARD ---
Subjective Date: 06/09/21 Time: 09:00 Principal diagnosis: pulmonary htn, CHF, CAD Interval history: This is a 42-year-old white gentleman who was admitted to the hospital initially for a rash on his lower extremities and edema. The patient was found to be in hypoxic failure and was placed on a Vapotherm mask. He has now been weaned down to high flow oxygen. He is currently being treated for pneumonia and findings concerning for lymphoma. He did undergo biopsy yesterday which is still currently pending. The patient does have an abnormal echocardiogram that showed pulmonary hypertension and pressure and volume overload of the right ventricle. There is concern that his shortness of breath may be ischemically mediated due to his history of coronary artery disease. He is still complaining of shortness of breath. He states that this occurs with rest and exertion. He states that it has improved overall since being in the hospital but is still present. He denies any lower extremity edema. He denies any chest pain or pressure. He denies any fever, chills, nausea, diarrhea, vomiting, PND orthopnea. Exam Vital signs and Labs for Last 24 Hours: Temp Pulse Resp BP Pulse Ox 98.1 F 66 22 116/55 L 93 L 06/09/21 08:00 06/09/21 08:00 06/09/21 08:00 06/09/21 08:00 06/09/21 08:00 Laboratory Results - last 24 hr 06/07/21 10:05: Hepatitis A IgM Ab Negative, Hep Bs Antigen Negative, Hep B Core IgM Ab Negative, Hepatitis C Antibody <0.1 06/08/21 05:15: Total Counted 100, Neutrophils % (Manual) 88 H, Lymphocytes % (Manual) 10, Monocytes % (Manual) 2, Platelet Estimate Normal 06/08/21 05:15: Total Bilirubin 0.8, Direct Bilirubin 0.5 H, Conjugated Bilirubin 0.0, Indirect Bilirubin 0.3, Unconjugated Bilirubin 0.3, AST 141 H D, ALT 275 H D, Alkaline Phosphatase 80, Total Protein 4.8 L, Albumin 2.5 L 06/08/21 14:50: WBC 5.7, RBC 2.76 L, Hgb 7.7 L, Hct 25.8 L, MCV 93.5, MCH 28.0, MCHC 29.9 L, RDW 18.0 H, Plt Count 144, MPV 9.9, Neut % (Auto) 87.7 H, Lymph % (Auto) 7.4 L, [place] % (Auto) 4.5, Eos % (Auto) 0.1, Baso % (Auto) 0.3, Neut # (Auto) 5.0, Lymph # (Auto) 0.4 L, [place] # (Auto) 0.3, Eos # (Auto) 0.0, Baso # (Auto) 0.0, Total Counted 100, Neutrophils % (Manual) 91 H, Lymphocytes % (Manual) 7 L, Monocytes % (Manual) 1 L, Basophils % (Manual) 1.0, Platelet Estimate Normal, Anisocytosis 2+ 06/08/21 14:50: Sodium 133 L, Potassium 4.0 D, Chloride 100, Carbon Dioxide 29, Anion Gap 8.0, BUN 27 H, Creatinine 1.00, Estimated Creat Clear 117, Estimated GFR 82, Est GFR ( Amer) 99, Glucose 149 H, Calcium 7.2 L 06/08/21 16:15: Blood Type O Positive, Antibody Screen Negative, Crossmatch (AHG) See Detail 06/09/21 04:20: WBC 8.0 D, RBC 3.37 L, Hgb 9.5 L D, Hct 31.0 L, MCV 92.2, MCH 28.2, MCHC 30.5 L, RDW 17.3, Plt Count 148, MPV 10.5 H, Neut % (Auto) 88.1 H, Lymph % (Auto) 6.8 L, [place] % (Auto) 4.7, Eos % (Auto) 0.1, Baso % (Auto) 0.4, Neut # (Auto) 7.0, Lymph # (Auto) 0.5 L, [place] # (Auto) 0.4, Eos # (Auto) 0.0, Baso # (Auto) 0.0, Total Counted 100, Neutrophils % (Manual) 85 H, Lymphocytes % (Manual) 11, Monocytes % (Manual) 4, Platelet Estimate Normal, RBC Morphology Not Reportable, Stomatocytes 1+ 06/09/21 04:20: Sodium 134 L, Potassium 3.4 L, Chloride 103, Carbon Dioxide 28, Anion Gap 6.4, BUN 22 H, Creatinine 0.80, Estimated Creat Clear 146, Estimated GFR 106, Est GFR ( Amer) 128 D, Glucose 135 H, Calcium 7.8 L 06/09/21 04:20: Triglycerides 43, Cholesterol < 50 L, LDL Cholesterol Direct < 30.00 L, VLDL Cholesterol 9, HDL Cholesterol 15 L, Cholesterol/HDL Ratio 3.3 I & O for Last 24 hours: Intake & Output 06/06/21 06/07/21 06/08/21 06/09/21 23:59 23:59 23:59 23:59 Intake Total 2305 / 2775 3002 / 3002 2983 / 3223 947 / 947 Output Total 1999 / 2949 3350 / 4850 3570 / 3570 750 / 750 Balance 305 / -175 -348 / -1848 -587 / -347 197 / 197 Weight 195 lb 4.8 oz 193 lb 5 oz 191 lb 3.2 oz 196 lb 11.2 oz Microbiology Reports for the Last 24 Hours: Microbiology 0
--- NOTE | 2021-06-09 10:16 | PC.NURSE ---
discontinue MIVF per Dr. Thompson.
--- NOTE | 2021-06-09 15:48 | PC.NURSE ---
[facility] RN
[2021-06-09 16:58] LABS: CATHL Arterial O2 SAT 68 % (90-100); CATHL Venous O2 SAT 70 % (75-80)
--- NOTE | 2021-06-09 17:11 | PC.NURSE ---
received report from cathhiginio EMANUEL, Shweta Banda RN
--- NOTE | 2021-06-09 17:24 | PC.NURSE ---
[facility]
[2021-06-10] VITALS (18 sets, daily range): BP systolic 96–136; BP diastolic 51–66; PULSE 66–80; RESP 18–22; TEMP 36.7–36.9; O2SAT 94–100; BMI 28.1
[2021-06-10 06:58] LABS: Basophils % 0.1 % (0.1-2.0); Eosinophils % 0.1 % (0.1-12.0); Hematocrit 32.1 % (42.0-52.0); Hemoglobin 9.7 g/dL (14.1-18.0); Lymphocytes # 0.9 K/mm3 (0.7-4.5); Lymphocytes % 12.8 % (10-50); Mean Corpuscular HGB Conc 30.3 g/dL (31.8-35.4); Mean Corpuscular Hemoglobin 28.2 pg (27.0-31.2); Mean Corpuscular Volume 92.9 fl (80-94); Mean Platelet Volume 8.5 fl (7.4-10.4); Monocytes # 0.3 K/mm3 (0.1-1.0); Monocytes % 4.7 % (1.7-9.3); Neutrophils # 5.4 K/mm3 (1.8-7.8); Neutrophils % 82.2 % (37.0-80.0); Platelet Count 173 K/mm3 (142-424); Red Blood Count 3.46 M/mm3 (4.60-6.20); Red Cell Distribution Width 17.7 % (11.5-17.5); White Blood Count 6.6 K/mm3 (4.8-10.8)
[2021-06-10 06:59] LABS: Anion Gap 6.7 mEq/L (5-15); Blood Urea Nitrogen 19 mg/dl (9-20); Calcium 7.9 mg/dl (8.4-10.2); Carbon Dioxide 33 mmol/L (22.0-30.0); Chloride 99 mmol/L (98-107); Creatinine Clearance Estimated 134 mL/min (50-200); Estimated Glomerular Filt Rate 92 ml/min (>60); GFR (African American) 111 ML/MIN (>60); Glucose 99 mg/dl (74-100); Potassium 3.7 mmoL/L (3.5-5.1); Sodium 135 mmol/L (136-145)
--- NOTE | 2021-06-10 09:00 | PC.NURSE ---
O2 sat maintaining 97-100% on HFNC 12L. O2 weaned to 3L NC. Sats now maintaining 91% on 3L.
--- NOTE | 2021-06-10 09:08 | HMH.PULMPN ---
Internal Medicine - PN: Subj *Date: 07/05/21 *Time: 12:53 Interval history: No acute respiratory events. Denies any new respiratory complaints. Exam - Constitutional Constitutional:: Present: no acute distress, comfortable - HENMT Exam HENMT: Present: normocephalic - Eye Exam Eyes:: Present: normal appearance both eyes and related structures - Neck Exam Neck:: Present: normal visual inspection - Respiratory Exam Respiratory:: Present: able to speak in complete sentences, respiratory distress, crackles - Cardiovascular Exam Cardiac:: Present: S1, S2 - GI Exam GI:: Present: soft - Skin Exam Skin: Present: warm, no rash - Neurological Exam Neurological: Present: alert, awake - Extremities Exam Extremities: Present: no cyanosis, no clubbing, edema Assessment and Plan (1) Anemia Status: Acute Qualifiers: Anemia type: unspecified type Qualified Code(s): D64.9 - Anemia, unspecified Category: Medical Code(s): D64.9 - Anemia, unspecified (2) Skin ulcer of left foot, limited to breakdown of skin Start date: 06/09/21 Start time: 08:00 Status: Acute Category: Medical Code(s): L97.521 - Non-pressure chronic ulcer of other part of left foot limited to breakdown of skin (3) Skin ulcer of right heel, limited to breakdown of skin Start date: 06/09/21 Start time: 08:00 Status: Acute Category: Medical Code(s): L97.411 - Non-pressure chronic ulcer of right heel and midfoot limited to breakdown of skin (4) Edema of both lower extremities Start date: 06/03/21 Start time: 12:30 Status: Acute Category: Medical Code(s): R60.0 - Localized edema (5) Wound of right foot Start date: 06/09/21 Start time: 08:00 Problem details: Right dorsal foot Status: Acute Category: Medical Code(s): S91.301A - Unspecified open wound, right foot, initial encounter (6) Tobacco use Status: Acute Category: Social Hx Code(s): Z72.0 - Tobacco use (7) Discoloration of skin of lower leg Start date: 06/09/21 Start time: 08:00 Status: Acute Category: Medical Code(s): L81.9 - Disorder of pigmentation, unspecified (8) Bilateral pleural effusion Status: Acute Category: Medical Code(s): J90 - Pleural effusion, not elsewhere classified (9) Acute respiratory failure with hypoxia Status: Acute Category: Medical Code(s): J96.01 - Acute respiratory failure with hypoxia (10) BMI 26.0-26.9,adult Status: Acute Category: Medical Code(s): Z68.26 - Body mass index [BMI] 26.0-26.9, adult (11) Hypokalemia Status: Acute Category: Medical Code(s): E87.6 - Hypokalemia (12) Hyponatremia Status: Acute Category: Medical Code(s): E87.1 - Hypo-osmolality and hyponatremia (13) Hypocalcemia Status: Acute Category: Medical Code(s): E83.51 - Hypocalcemia (14) Retroperitoneal lymphadenopathy Status: Acute Category: Medical Code(s): R59.0 - Localized enlarged lymph nodes (15) Splenomegaly Status: Acute Category: Medical Code(s): R16.1 - Splenomegaly, not elsewhere classified (16) Lymphoma Status: Acute Qualifiers: Lymphoma type: unspecified type Lymphoma site: intra-abdominal nodes Qualified Code(s): C85.93 - Non-Hodgkin lymphoma, unspecified, intra-abdominal lymph nodes Category: Medical Code(s): C85.90 - Non-Hodgkin lymphoma, unspecified, unspecified site (17) Elevated LFTs Status: Acute Category: Medical Code(s): R79.89 - Other specified abnormal findings of blood chemistry (18) Acquired hammer toes of both feet Start date: 06/03/21 Start time: 12:30 Status: Acute Category: Medical Code(s): M20.41 - Other hammer toe(s) (acquired), right foot; M20.42 - Other hammer toe(s) (acquired), left foot (19) Keratosis Start date: 06/09/21 Start time: 08:00 Status: Acute Category: Medical Code(s): L57.0 - Actinic keratosis (20) Onychodystrophy Start date: 06/09/21 Start time: 08:00
--- NOTE | 2021-06-10 09:15 | HMH.ACPN2 ---
Internal Medicine - PN: Subj *Date: 06/10/21 *Time: 08:20 Interval history: pt asking to go home. pt laying in bed with mom at bedside, on 12 liters nc, michele at bedside, zeke dressing to both feet Exam Vital signs and Labs for Last 24 Hours: Temp Pulse Resp BP Pulse Ox 98.4 F 67 22 115/53 L 98 06/10/21 07:58 06/10/21 06:09 06/10/21 06:00 06/10/21 06:00 06/10/21 06:09 Laboratory Results - last 24 hr 06/09/21 16:38: ABG O2 Sat (Measured) 68 L, POC VBG O2 Sat (Fernie) 70 L 06/10/21 05:09: WBC 6.6, RBC 3.46 L, Hgb 9.7 L, Hct 32.1 L, MCV 92.9, MCH 28.2, MCHC 30.3 L, RDW 17.7 H, Plt Count 173, MPV 8.5, Neut % (Auto) 82.2 H, Lymph % (Auto) 12.8, [place] % (Auto) 4.7, Eos % (Auto) 0.1, Baso % (Auto) 0.1, Neut # (Auto) 5.4, Lymph # (Auto) 0.9, [place] # (Auto) 0.3, Eos # (Auto) 0.0, Baso # (Auto) 0.0 06/10/21 05:09: Sodium 135 L, Potassium 3.7, Chloride 99, Carbon Dioxide 33 H, Anion Gap 6.7, BUN 19, Creatinine 0.90, Estimated Creat Clear 134, Estimated GFR 92, Est GFR ( Amer) 111, Glucose 99, Calcium 7.9 L I & O for Last 24 hours: Intake & Output 06/07/21 06/08/21 06/09/21 06/10/21 11:59 11:59 11:59 11:59 Intake Total 3255 / 3255 3436 / 3436 2546 / 2546 1776 / 1776 Output Total 950 / 950 4200 / 4200 2520 / 2520 6600 / 6600 Balance 2305 / 2305 -764 / -764 26 / -4824 / -4824 Weight 193 lb 5 oz 191 lb 3.2 oz 196 lb 11.2 oz 196 lb 10 oz Microbiology Reports for the Last 24 Hours: Microbiology 06/06/21 12:04 Sputum - Expectorated Sputum Gram Stain - Final 06/06/21 12:04 Sputum - Expectorated Sputum Sputum Culture - Final Yeast - Constitutional no acute distress, chronically ill appearing - *Routine HEENT Exam Head: Present: normocephalic Eye: Present: PERRL ENT: Present: mucous membranes moist - *Routine Neck Exam Present: supple. Absent: lymphadenopathy - *Routine Respiratory Exam Present: CTA bilaterally - *Routine Cardiovascular Exam Present: RRR - *Routine Abdominal Exam Present: soft, normoactive bowel sounds. Absent: tenderness - *Routine Extremities Exam Absent: cyanosis, clubbing, edema - *Routine Skin Exam Present: dry, wounds Comments: dry scaly feet and dessing to zeke feet and ankles - *Routine Neurological Exam Present: alert, oriented X3 Assessment and Plan (1) Anemia Status: Acute Qualifiers: Anemia type: unspecified type Qualified Code(s): D64.9 - Anemia, unspecified Category: Medical Code(s): D64.9 - Anemia, unspecified (2) Skin ulcer of left foot, limited to breakdown of skin Start date: 06/09/21 Start time: 08:00 Status: Acute Category: Medical Code(s): L97.521 - Non-pressure chronic ulcer of other part of left foot limited to breakdown of skin (3) Skin ulcer of right heel, limited to breakdown of skin Start date: 06/09/21 Start time: 08:00 Status: Acute Category: Medical Code(s): L97.411 - Non-pressure chronic ulcer of right heel and midfoot limited to breakdown of skin (4) Edema of both lower extremities Start date: 06/03/21 Start time: 12:30 Status: Acute Category: Medical Code(s): R60.0 - Localized edema (5) Wound of right foot Start date: 06/09/21 Start time: 08:00 Problem details: Right dorsal foot Status: Acute Category: Medical Code(s): S91.301A - Unspecified open wound, right foot, initial encounter (6) Tobacco use Status: Acute Category: Social Hx Code(s): Z72.0 - Tobacco use (7) Discoloration of skin of lower leg Start date: 06/09/21 Start time: 08:00 Status: Acute Category: Medical Code(s): L81.9 - Disorder of pigmentation, unspecified (8) Bilateral pleural effusion Status: Acute Category: Medical Code(s): J90 - Pleural effusion, not elsewhere classified (9) Acute respiratory failure with hypoxia Status: Acute Category: Medical Code(s): J96.01 - Acute respiratory failure with hypoxia (10) BMI 26.0-
--- NOTE | 2021-06-10 10:07 | PC.NURSE ---
RESP CARE NOTE: Pt oxygen weaned to 3 lpm n/c with SPO2 remaining at 95-96%. Will continue to monitor patient.
--- NOTE | 2021-06-10 10:44 | DIET.NUTRFU ---
rounded with physician today, patient reports he is cutting down on soda intake to only sips. His mom was also encouraging him to quit smoking. He likes the strawberry shake and willing to increase to 3/day to provide 966kcal and 57gm protein if consumed. Some meals have increased up to 75% of intake but still not consistent to meet nutritional needs. Today's labs reviewed Na slightly low at 135L. Wt stable at 89kg. Patient wants to discharge but oxygen levle is not therapeutic yet. Will continue to follow
--- NOTE | 2021-06-10 11:27 | HMH.PTEV ---
Physical Therapy Evaluation Rehab PT IP Evaluation Start: 06/10/21 09:14 Freq: ONCE Status: Active Protocol: Document 06/10/21 11:24 PHORNE (Rec: 06/10/21 11:27 PHORNE [id number]) Subjective/History History History 45 yowm adm to [facility] with anemia and B LE wounds. He reports no steps to enter the home and is generally independent with all mobility prior to adm. Subjective Subjective Pt reports feeling tired this am, but much better overall. Rehab PT IP Eval Objective Appearance Patient Behavior Appropriate Patient Orientation Person,Place,Time Difficulty following instructions none Speech Pattern Clear Ambulation Patient Able to Ambulate Yes Ambulation Observation IP General Gait Pattern Observation Shuffling Step Ambulation Distance (feet) 5 Ambulation Assistive Device None Ambulation Ability Minimal x 1 (25% assist) Balance Ability to Arise Able, uses arms to help Sitting Balance Steady, safe Standing Balance Steady, wide stance Dynamic Sitting Balance Ability Good Dynamic Standing Balance Ability Fair Transfers Bed Transfer Ability Minimal x 1 (25% assist) Chair Transfer Ability Minimal x 1 (25% assist) Sit to Stand Bed Transfer Ability Minimal x 1 (25% assist) Sit to Stand Chair Transfer Ability Minimal x 1 (25% assist) Rehab PT IP prob,goals,plan Problems Date of Evaluation: 06/10/21 PT IP Problems Bed Mobility,Transfers,Gait Rehab Potential Rehab Potential Good Plan PT Intervention Plan Bed Mobility,Transfers,Gait, Self care,Therapeutic Exercise PT Plan Frequency BID Duration LOS Discharge Goals Bed Transfer Ability Contact Guard/Hand Hold Sit to Stand Chair Transfer Ability Contact Guard/Hand Hold Ambulation Assistive Device Rolling Walker Ambulation Distance (feet) 25 Discharge Plan PT Discharge Plan Pt is appropriate to return home once medically stable. Recommend home health or outpatient therapy upon d/c. G -code Required No Eval Complexity Eval Charge Codes 39613 - Moderate Complexity PHYSICIAN CERTIFICATION: I certify the specified therapy services for Fili Barrera are required, authorized, and reviewed every 30 days.
--- NOTE | 2021-06-10 11:35 | HMH.OTEV ---
OT Inpatient Evaluation Rehab OT IP Evaluation Start: 06/10/21 09:14 Freq: ONCE Status: Complete Protocol: Document 06/10/21 11:31 SHAKIRA (Rec: 06/10/21 11:35 [id number] Rehab OT IP Assessment Subjective History Pt oriented x 3 on arrival. Pt agreeable to engage in therapy evaluation. Pt resting in chair on arrival. Pt was admitted on 06/02/21 due to weakness. Pt has a past medical history of Congestive Heart Failure, Coronary Artery Disease, Hyperlipidemia, Hypertension, MRSA, Myocardial Infarction, Peripheral Artery Disease, Peripheral Vascular Disease. The following information was copied from history and physical report by physician: States that over the past 2 weeks he has gradually become more and more weak. Says he is so profoundly weak now he can hardly get up to move around. States he is unable to get any rest and he also feels dehydrated. He has chronic ulcers on his legs being treated by wound care and Dr. Bhatt. He says these are unchanged recently. No increased redness or pain. No fever at home. Slight cough. No vomiting or diarrhea. No chest or abdominal pain. No hematemesis. No melena or hematochezia (Per Lesly Champion MD). Hemoglobin was 6.9 in the emergency department he did receive 2 units of packed red blood cells and currently hemoglobin is 8.8 Chest x-ray showed no acute findings 45-year-old male patient sitting up in bed he denies any pain or shortness of breath at present. Current oxygenation 92% on
--- NOTE | 2021-06-10 12:08 | HMH.PNCARD ---
Subjective Date: 06/10/21 Time: 10:30 Principal diagnosis: pulmonary htn, CHF, CAD Interval history: This is a 45-year-old white gentleman who was admitted to the hospital initially for rash on his lower extremities and some edema. The patient was found to be in hypoxic respiratory failure and ended up on a Vapotherm mask. Cardiology was consulted because of his persistent volume overload and bilateral pleural effusions on CAT scan. His echocardiogram showed pulmonary hypertension and pressure and volume overload of the right ventricle. He underwent right and left cardiac catheterization yesterday which showed patent coronary artery disease with a normal ejection fraction. He had an elevated LVEDP consistent with diastolic dysfunction. He has moderate pulmonary artery hypertension consistent with group 2 which stems from his diastolic congestive heart failure. The patient needs aggressive diuresis. The patient was switched over from oral torsemide to IV Lasix yesterday and he had a -5 L fluid balance overnight. His creatinine remains normal today. Continue with aggressive diuresis until the patient's creatinine elevates. This morning his shortness of breath has improved significantly. He is off of high flow oxygen and down to nasal cannula at 3 L/min. He denies any chest pain or pressure. His edema is improving. He denies any fever, chills, nausea, vomiting, diarrhea, PND or orthopnea. Exam Vital signs and Labs for Last 24 Hours: Temp Pulse Resp BP Pulse Ox 98.4 F 76 18 96/53 L 98 06/10/21 11:30 06/10/21 11:30 06/10/21 11:30 06/10/21 11:30 06/10/21 11:30 Laboratory Results - last 24 hr 06/09/21 16:38: ABG O2 Sat (Measured) 68 L, POC VBG O2 Sat (Fernie) 70 L 06/10/21 05:09: WBC 6.6, RBC 3.46 L, Hgb 9.7 L, Hct 32.1 L, MCV 92.9, MCH 28.2, MCHC 30.3 L, RDW 17.7 H, Plt Count 173, MPV 8.5, Neut % (Auto) 82.2 H, Lymph % (Auto) 12.8, [place] % (Auto) 4.7, Eos % (Auto) 0.1, Baso % (Auto) 0.1, Neut # (Auto) 5.4, Lymph # (Auto) 0.9, [place] # (Auto) 0.3, Eos # (Auto) 0.0, Baso # (Auto) 0.0 06/10/21 05:09: Sodium 135 L, Potassium 3.7, Chloride 99, Carbon Dioxide 33 H, Anion Gap 6.7, BUN 19, Creatinine 0.90, Estimated Creat Clear 134, Estimated GFR 92, Est GFR ( Amer) 111, Glucose 99, Calcium 7.9 L I & O for Last 24 hours: Intake & Output 06/07/21 06/08/21 06/09/21 06/10/21 23:59 23:59 23:59 23:59 Intake Total 3002 / 3002 2983 / 3223 1653 / 1653 1070 / 1070 Output Total 3350 / 4850 3570 / 3570 6700 / 6700 2900 / 2900 Balance -348 / -1848 -587 / -347 -5047 / -5047 -1830 / -1830 Weight 193 lb 5 oz 191 lb 3.2 oz 196 lb 11.2 oz 196 lb 10 oz Narrative: R/LHC shows: The left main artery Normal The left anterior descending artery Has proximal 10% luminal irregularities with a mid vessel stent which is widely patent with minimal in-stent restenosis. There are 30% stenoses along tortuous bends The circumflex artery Is codominant and has mild 10 to 20% luminal irregularities The right coronary artery Is a codominant vessel has a stent in the proximal to mid segment which is widely patent with minimal in-stent restenosis. There are 10 to 20% stenoses distal to the stent The ABREU ventriculogram reveals Normal 65% The left ventricular end-diastolic pressure 25 mmHg Right atrial pressure 16 mmHg Right ventricular pressure 50/17 mmHg Pulmonary artery pressure 45/25 mmHg Pulmonary occlusion pressure 25 mmHg Right atrial saturation 69% Pulmonary artery saturation 68% IMPRESSION Widely patent stents as described above with otherwise nonocclusive coronary artery disease in the remaining segments Normal ejection fraction Elevated LVEDP consistent with diastolic dysfunction Moderate pulmonary artery hypertension consistent with group 2 which stems from diastolic heart failure PLAN 1. Higher dose diuretics 2. Treatment of diastolic dysfunction 3. Medical management for ischemic heart disease - Constitutional no acute distress
[2021-06-10 15:39] LABS: Monoscreen (Rapid) Negative (Negative)
--- NOTE | 2021-06-10 17:24 | PC.NURSE ---
O2 sat sustaining 98-100% on 3L NC. O2 flow decreased to 2L NC.
--- NOTE | 2021-06-10 18:25 | PC.NURSE ---
Pt's sister, Yina Lunsford, is at the bedside and explains that pt wishes to make her his health care surrogate. HCS/LW form obtained from ED. HCS form explained to pt and family in detail. Pt verbalizes understanding and signs form naming Yina Lunsford as his HCS. Signature witnessed by myself and Olinda Dobson RN. Pt's mother, Diamond Barrera, kept the original form as she and pt live together. Two copies made, 1 for [facility] chart, and 1 for Yina Lunsford.
[2021-06-11] VITALS (12 sets, daily range): BP systolic 91–113; BP diastolic 53–59; PULSE 61–85; RESP 14–18; TEMP 36.7–37.1; O2SAT 91–98; BMI 27.0
--- NOTE | 2021-06-11 03:35 | PC.NURSE ---
Pt A&O x3. Was up to chair for portion of shift. He is currently resting in bed. Has slept at intervals. Pt is currently on 3L O2 NC. Has had some desats as low as upper 70s during deep sleep with quick recovery after awakening. DSGs to BLE in place. VSS. Pt has stated he wants to go home. No other concerns. Will continue to monitor.
[2021-06-11 07:22] LABS: Basophils % 0.4 % (0.1-2.0); Eosinophils % 0.4 % (0.1-12.0); Hemoglobin 10.2 g/dL (14.1-18.0); Lymphocytes # 1.2 K/mm3 (0.7-4.5); Lymphocytes % 17.5 % (10-50); Mean Corpuscular HGB Conc 30.8 g/dL (31.8-35.4); Mean Corpuscular Hemoglobin 28.4 pg (27.0-31.2); Mean Corpuscular Volume 92.2 fl (80-94); Mean Platelet Volume 8.2 fl (7.4-10.4); Monocytes # 0.3 K/mm3 (0.1-1.0); Monocytes % 4.7 % (1.7-9.3); Neutrophils # 5.2 K/mm3 (1.8-7.8); Platelet Count 153 K/mm3 (142-424); Red Blood Count 3.58 M/mm3 (4.60-6.20); Red Cell Distribution Width 17.4 % (11.5-17.5); White Blood Count 6.7 K/mm3 (4.8-10.8)
[2021-06-11 07:27] LABS: Blood Urea Nitrogen 15 mg/dl (9-20); Calcium 7.6 mg/dl (8.4-10.2); Carbon Dioxide 33 mmol/L (22.0-30.0); Chloride 96 mmol/L (98-107); Creatinine Clearance Estimated 144 mL/min (50-200); Estimated Glomerular Filt Rate 106 ml/min (>60); GFR (African American) 128 ML/MIN (>60); Glucose 94 mg/dl (74-100); Sodium 131 mmol/L (136-145)
--- NOTE | 2021-06-11 09:36 | HMH.ACPN2 ---
Internal Medicine - PN: Subj *Date: 06/12/21 *Time: 08:23 Interval history: doing better- more active and dec o2 - but still with increased response to diuretic Exam Vital signs and Labs for Last 24 Hours: Temp Pulse Resp BP Pulse Ox 98.1 F 77 18 91/53 L 94 L 06/11/21 07:42 06/11/21 07:42 06/11/21 07:42 06/11/21 07:42 06/11/21 07:42 Laboratory Results - last 24 hr 06/10/21 15:20: Monoscreen Negative 06/11/21 06:46: WBC 6.7, RBC 3.58 L, Hgb 10.2 L, Hct 33.0 L, MCV 92.2, MCH 28.4, MCHC 30.8 L, RDW 17.4, Plt Count 153, MPV 8.2, Neut % (Auto) 77.0, Lymph % (Auto) 17.5, [place] % (Auto) 4.7, Eos % (Auto) 0.4, Baso % (Auto) 0.4, Neut # (Auto) 5.2, Lymph # (Auto) 1.2, [place] # (Auto) 0.3, Eos # (Auto) 0.0, Baso # (Auto) 0.0 06/11/21 06:46: Sodium 131 L, Potassium 4.0, Chloride 96 L, Carbon Dioxide 33 H, Anion Gap 6.0, BUN 15, Creatinine 0.80, Estimated Creat Clear 144, Estimated GFR 106, Est GFR ( Amer) 128, Glucose 94, Calcium 7.6 L I & O for Last 24 hours: Intake & Output 06/08/21 06/09/21 06/10/21 06/11/21 11:59 11:59 11:59 11:59 Intake Total 3436 / 3436 2546 / 2546 1776 / 1776 1290 / 1290 Output Total 4200 / 4200 2520 / 2520 8850 / 8850 2024 Balance -764 / -764 -7074 / -7074 -735 / -735 Weight 191 lb 3.2 oz 196 lb 11.2 oz 196 lb 10 oz 189 lb - Constitutional no acute distress - *Routine HEENT Exam Head: Present: normocephalic Eye: Present: EOMI, PERRL ENT: Present: mucous membranes dry - *Routine Neck Exam Absent: JVD - *Routine Respiratory Exam Present: decreased breath sounds - *Routine Cardiovascular Exam Present: RRR - *Routine Abdominal Exam Present: soft - *Routine Extremities Exam Absent: calf tenderness - *Routine Skin Exam Present: intact - *Routine Neurological Exam Present: alert, CN II-XII intact - Routine Psychiatric Exam Present: normal affect Assessment and Plan (1) Diastolic CHF Status: Acute Category: Medical Code(s): I50.30 - Unspecified diastolic (congestive) heart failure (2) Pulmonary hypertension Status: Acute Category: Medical Code(s): I27.20 - Pulmonary hypertension, unspecified (3) SOB (shortness of breath) Status: Acute Category: Medical Code(s): R06.02 - Shortness of breath (4) Anemia Status: Acute Qualifiers: Anemia type: unspecified type Qualified Code(s): D64.9 - Anemia, unspecified Category: Medical Code(s): D64.9 - Anemia, unspecified (5) Skin ulcer of left foot, limited to breakdown of skin Start date: 06/09/21 Start time: 08:00 Status: Acute Category: Medical Code(s): L97.521 - Non-pressure chronic ulcer of other part of left foot limited to breakdown of skin (6) Skin ulcer of right heel, limited to breakdown of skin Start date: 06/09/21 Start time: 08:00 Status: Acute Category: Medical Code(s): L97.411 - Non-pressure chronic ulcer of right heel and midfoot limited to breakdown of skin (7) Edema of both lower extremities Start date: 06/03/21 Start time: 12:30 Status: Acute Category: Medical Code(s): R60.0 - Localized edema (8) Tobacco use Status: Acute Category: Social Hx Code(s): Z72.0 - Tobacco use (9) Discoloration of skin of lower leg Start date: 06/09/21 Start time: 08:00 Status: Acute Category: Medical Code(s): L81.9 - Disorder of pigmentation, unspecified (10) Bilateral pleural effusion Status: Acute Category: Medical Code(s): J90 - Pleural effusion, not elsewhere classified (11) Acute respiratory failure with hypoxia Status: Acute Category: Medical Code(s): J96.01 - Acute respiratory failure with hypoxia (12) BMI 26.0-26.9,adult Status: Acute Category: Medical Code(s): Z68.26 - Body mass index [BMI] 26.0-26.9, adult (13) Hyponatremia Status: Acute Category: Medical Code(s): E87.1 - Hypo-osmolality and hyponatremia (14) Retroperitoneal lymphadenopathy Status: Acute Category:
--- NOTE | 2021-06-11 18:07 | PC.NURSE ---
No acute changes noted this shift, patient has been up to chair for most of the day, worked with physical therapy this morning and was able to walk to the door and back to chair with walker and assist x1, O2 weaned to 2LNC this shift, BLE dsgs changed this shift, FC patent and draining clear yellow urine at bedside, alert and oriented x4, denies any pain or soa at this time, vss.
[2021-06-12] VITALS (12 sets, daily range): BP systolic 92–123; BP diastolic 53–71; PULSE 66–95; RESP 15–18; TEMP 36.6–37.3; O2SAT 91–100; BMI 26.6
--- NOTE | 2021-06-12 06:29 | PC.NURSE ---
pt has rested intermittently t/o shift, has not complained of pain or SOA, has remained on 2L NC with O2 sats greater than 90%, has ambulated to BR with standby assist and the use of walker, michele remains in place, 900 mL out so far this shift
[2021-06-12 07:11] LABS: Blood Urea Nitrogen 15 mg/dl (9-20); Calcium 7.7 mg/dl (8.4-10.2); Carbon Dioxide 31 mmol/L (22.0-30.0); Chloride 93 mmol/L (98-107); Creatinine Clearance Estimated 142 mL/min (50-200); Estimated Glomerular Filt Rate 106 ml/min (>60); GFR (African American) 128 ML/MIN (>60); Glucose 102 mg/dl (74-100); Sodium 129 mmol/L (136-145)
[2021-06-12 07:15] LABS: Basophils % 0.5 % (0.1-2.0); Eosinophils % 0.5 % (0.1-12.0); Hematocrit 34.9 % (42.0-52.0); Hemoglobin 10.9 g/dL (14.1-18.0); Lymphocytes # 1.4 K/mm3 (0.7-4.5); Lymphocytes % 17.6 % (10-50); Mean Corpuscular HGB Conc 31.1 g/dL (31.8-35.4); Mean Corpuscular Hemoglobin 28.4 pg (27.0-31.2); Mean Corpuscular Volume 91.3 fl (80-94); Mean Platelet Volume 8.4 fl (7.4-10.4); Monocytes # 0.4 K/mm3 (0.1-1.0); Monocytes % 4.9 % (1.7-9.3); Neutrophils % 76.5 % (37.0-80.0); Platelet Count 170 K/mm3 (142-424); Red Blood Count 3.82 M/mm3 (4.60-6.20); Red Cell Distribution Width 17.4 % (11.5-17.5); White Blood Count 7.8 K/mm3 (4.8-10.8)
--- NOTE | 2021-06-12 08:28 | HMH.ACPN2 ---
Internal Medicine - PN: Subj *Date: 06/13/21 *Time: 06:30 Interval history: doing better but still with diuresis about 1 l bid Exam Vital signs and Labs for Last 24 Hours: Temp Pulse Resp BP Pulse Ox 98.5 F 71 16 100/53 L 91 L 06/12/21 07:45 06/12/21 07:45 06/12/21 07:45 06/12/21 07:45 06/12/21 07:45 Laboratory Results - last 24 hr 06/12/21 06:12: WBC 7.8, RBC 3.82 L, Hgb 10.9 L, Hct 34.9 L, MCV 91.3, MCH 28.4, MCHC 31.1 L, RDW 17.4, Plt Count 170, MPV 8.4, Neut % (Auto) 76.5, Lymph % (Auto) 17.6, [place] % (Auto) 4.9, Eos % (Auto) 0.5, Baso % (Auto) 0.5, Neut # (Auto) 6.0, Lymph # (Auto) 1.4, [place] # (Auto) 0.4, Eos # (Auto) 0.0, Baso # (Auto) 0.0 06/12/21 06:12: Sodium 129 L, Potassium 4.0, Chloride 93 L, Carbon Dioxide 31 H, Anion Gap 9.0, BUN 15, Creatinine 0.80, Estimated Creat Clear 142, Estimated GFR 106, Est GFR ( Amer) 128, Glucose 102 H, Calcium 7.7 L I & O for Last 24 hours: Intake & Output 06/09/21 06/10/21 06/11/21 06/12/21 11:59 11:59 11:59 11:59 Intake Total 2546 / 2546 1776 / 1776 1290 / 1290 720 / 720 Output Total 2520 / 2520 8850 / 8850 3775 / 3775 2225 / 2225 Balance -7074 / -7074 -2485 / -2485 -1505 / -1505 Weight 196 lb 11.2 oz 196 lb 10 oz 189 lb 186 lb 4.8 oz - Constitutional no acute distress - *Routine HEENT Exam Head: Present: normocephalic Eye: Present: EOMI, PERRL ENT: Present: mucous membranes dry - *Routine Neck Exam Absent: JVD - *Routine Respiratory Exam Present: decreased breath sounds - *Routine Cardiovascular Exam Present: RRR - *Routine Abdominal Exam Present: soft - *Routine Extremities Exam Comments: chronic changes - *Routine Skin Exam Comments: chronic changes - *Routine Neurological Exam Present: moving all extremities - Routine Psychiatric Exam Present: cooperative Assessment and Plan (1) Diastolic CHF Status: Acute Category: Medical Code(s): I50.30 - Unspecified diastolic (congestive) heart failure (2) Pulmonary hypertension Status: Acute Category: Medical Code(s): I27.20 - Pulmonary hypertension, unspecified (3) SOB (shortness of breath) Status: Acute Category: Medical Code(s): R06.02 - Shortness of breath (4) Anemia Status: Acute Qualifiers: Anemia type: unspecified type Qualified Code(s): D64.9 - Anemia, unspecified Category: Medical Code(s): D64.9 - Anemia, unspecified (5) Skin ulcer of left foot, limited to breakdown of skin Start date: 06/09/21 Start time: 08:00 Status: Acute Category: Medical Code(s): L97.521 - Non-pressure chronic ulcer of other part of left foot limited to breakdown of skin (6) Skin ulcer of right heel, limited to breakdown of skin Start date: 06/09/21 Start time: 08:00 Status: Acute Category: Medical Code(s): L97.411 - Non-pressure chronic ulcer of right heel and midfoot limited to breakdown of skin (7) Edema of both lower extremities Start date: 06/03/21 Start time: 12:30 Status: Acute Category: Medical Code(s): R60.0 - Localized edema (8) Tobacco use Status: Acute Category: Social Hx Code(s): Z72.0 - Tobacco use (9) Discoloration of skin of lower leg Start date: 06/09/21 Start time: 08:00 Status: Acute Category: Medical Code(s): L81.9 - Disorder of pigmentation, unspecified (10) Bilateral pleural effusion Status: Acute Category: Medical Code(s): J90 - Pleural effusion, not elsewhere classified (11) Acute respiratory failure with hypoxia Status: Acute Category: Medical Code(s): J96.01 - Acute respiratory failure with hypoxia (12) BMI 26.0-26.9,adult Status: Acute Category: Medical Code(s): Z68.26 - Body mass index [BMI] 26.0-26.9, adult (13) Hyponatremia Status: Acute Category: Medical Code(s): E87.1 - Hypo-osmolality and hyponatremia (14) Retroperitoneal lymphadenopathy Status: Acute Category: Medical Code(s): R59.0 - Localized enlarged l
[2021-06-13] VITALS (7 sets, daily range): BP systolic 102–113; BP diastolic 58–66; PULSE 65–99; RESP 18–23; TEMP 36.6–36.7; O2SAT 96–99; BMI 26.0
--- NOTE | 2021-06-13 06:08 | PC.NURSE ---
Pt has ambulated to BR with walker and standby assist multiple times this shift. Has tolerated well. Was placed on O2 2L NC due to desatting this shift. VSS. DSGs to Bilateral feet in place. Pt states he needs to go home because of an appt at the clinic. VSS. No other concerns. Will continue to monitor.
[2021-06-13 06:14] LABS: Basophils % 0.3 % (0.1-2.0); Eosinophils % 0.4 % (0.1-12.0); Hematocrit 38.4 % (42.0-52.0); Hemoglobin 11.9 g/dL (14.1-18.0); Lymphocytes # 1.8 K/mm3 (0.7-4.5); Lymphocytes % 17.5 % (10-50); Mean Corpuscular Hemoglobin 28.9 pg (27.0-31.2); Mean Corpuscular Volume 93.1 fl (80-94); Mean Platelet Volume 8.3 fl (7.4-10.4); Monocytes # 0.6 K/mm3 (0.1-1.0); Monocytes % 5.9 % (1.7-9.3); Neutrophils # 7.9 K/mm3 (1.8-7.8); Neutrophils % 75.8 % (37.0-80.0); Platelet Count 166 K/mm3 (142-424); Red Blood Count 4.13 M/mm3 (4.60-6.20); Red Cell Distribution Width 17.4 % (11.5-17.5); White Blood Count 10.4 K/mm3 (4.8-10.8)
[2021-06-13 06:21] LABS: Anion Gap 8.8 mEq/L (5-15); Blood Urea Nitrogen 17 mg/dl (9-20); Calcium 8.1 mg/dl (8.4-10.2); Carbon Dioxide 33 mmol/L (22.0-30.0); Chloride 91 mmol/L (98-107); Creatinine Clearance Estimated 124 mL/min (50-200); Estimated Glomerular Filt Rate 92 ml/min (>60); GFR (African American) 111 ML/MIN (>60); Glucose 86 mg/dl (74-100); Potassium 4.8 mmoL/L (3.5-5.1); Sodium 128 mmol/L (136-145)
--- NOTE | 2021-06-13 09:19 | HMH.PULMPN ---
Internal Medicine - PN: Subj *Date: 06/13/21 *Time: 10:40 Interval history: No acute respiratory vents overnight. Patient admits continued improvement in symptoms. Exam - Constitutional Constitutional:: Present: no acute distress, comfortable - HENMT Exam HENMT: Present: normocephalic, atraumatic - Eye Exam Eyes:: Present: normal appearance both eyes and related structures - Neck Exam Neck:: Present: normal visual inspection - Respiratory Exam Respiratory:: Present: able to speak in complete sentences, no respiratory distress. Absent: crackles, wheezing - Cardiovascular Exam Cardiac:: Present: S1, S2 - GI Exam GI:: Present: soft - Skin Exam Skin: Present: warm, rash - Neurological Exam Neurological: Present: alert, awake, normal cognition - Extremities Exam Extremities: Present: no cyanosis, no clubbing, no edema Assessment and Plan (1) Diastolic CHF Status: Acute Category: Medical Code(s): I50.30 - Unspecified diastolic (congestive) heart failure (2) Pulmonary hypertension Status: Acute Category: Medical Code(s): I27.20 - Pulmonary hypertension, unspecified (3) SOB (shortness of breath) Status: Acute Category: Medical Code(s): R06.02 - Shortness of breath (4) Anemia Status: Acute Qualifiers: Anemia type: unspecified type Qualified Code(s): D64.9 - Anemia, unspecified Category: Medical Code(s): D64.9 - Anemia, unspecified (5) Skin ulcer of left foot, limited to breakdown of skin Start date: 06/09/21 Start time: 08:00 Status: Acute Category: Medical Code(s): L97.521 - Non-pressure chronic ulcer of other part of left foot limited to breakdown of skin (6) Skin ulcer of right heel, limited to breakdown of skin Start date: 06/09/21 Start time: 08:00 Status: Acute Category: Medical Code(s): L97.411 - Non-pressure chronic ulcer of right heel and midfoot limited to breakdown of skin (7) Edema of both lower extremities Start date: 06/03/21 Start time: 12:30 Status: Acute Category: Medical Code(s): R60.0 - Localized edema (8) Tobacco use Status: Acute Category: Social Hx Code(s): Z72.0 - Tobacco use (9) Discoloration of skin of lower leg Start date: 06/09/21 Start time: 08:00 Status: Acute Category: Medical Code(s): L81.9 - Disorder of pigmentation, unspecified (10) Bilateral pleural effusion Status: Acute Category: Medical Code(s): J90 - Pleural effusion, not elsewhere classified (11) Acute respiratory failure with hypoxia Status: Acute Category: Medical Code(s): J96.01 - Acute respiratory failure with hypoxia (12) BMI 26.0-26.9,adult Status: Acute Category: Medical Code(s): Z68.26 - Body mass index [BMI] 26.0-26.9, adult (13) Hyponatremia Status: Acute Category: Medical Code(s): E87.1 - Hypo-osmolality and hyponatremia (14) Retroperitoneal lymphadenopathy Status: Acute Category: Medical Code(s): R59.0 - Localized enlarged lymph nodes (15) Splenomegaly Status: Acute Category: Medical Code(s): R16.1 - Splenomegaly, not elsewhere classified (16) Elevated LFTs Status: Acute Category: Medical Code(s): R79.89 - Other specified abnormal findings of blood chemistry (17) Keratosis Start date: 06/09/21 Start time: 08:00 Status: Acute Category: Medical Code(s): L57.0 - Actinic keratosis (18) CAD (coronary artery disease) Status: Chronic Qualifiers: Coronary Disease-Associated Artery/Lesion type: [place] artery [place] vs. transplanted heart: hopi heart Associated angina: without angina Qualified Code(s): I25.10 - Atherosclerotic heart disease of [place] coronary artery without angina pectoris Category: Medical Code(s): I25.10 - Atherosclerotic heart disease of hop[place] coronary artery without angina pectoris (19) HHD (hypertensive heart disease) Status: Chronic Qualifiers: Heart failure presence: without heart failure Calvin
--- NOTE | 2021-06-13 09:59 | HMH.PNCARD ---
Subjective Date: 06/13/21 Time: 09:59 Principal diagnosis: pulmonary htn, CHF, CAD Interval history: 45-year-old white male sitting at bedside in no acute distress. States his breathing has significantly improved. His lower extremity edema is also significantly improved. He still has brawny changes to his lower extremities. His weight has decreased at least 20 pounds during this stay. His renal functions remain normal. Exam Vital signs and Labs for Last 24 Hours: Temp Pulse Resp BP Pulse Ox 97.9 F 85 18 102/64 L 98 06/13/21 08:00 06/13/21 08:00 06/13/21 08:00 06/13/21 08:00 06/13/21 08:00 Laboratory Results - last 24 hr 06/13/21 05:41: WBC 10.4 D, RBC 4.13 L, Hgb 11.9 L, Hct 38.4 L, MCV 93.1, MCH 28.9, MCHC 31.0 L, RDW 17.4, Plt Count 166, MPV 8.3, Neut % (Auto) 75.8, Lymph % (Auto) 17.5, [place] % (Auto) 5.9, Eos % (Auto) 0.4, Baso % (Auto) 0.3, Neut # (Auto) 7.9 H, Lymph # (Auto) 1.8, [place] # (Auto) 0.6, Eos # (Auto) 0.0, Baso # (Auto) 0.0 06/13/21 05:41: Sodium 128 L, Potassium 4.8, Chloride 91 L, Carbon Dioxide 33 H, Anion Gap 8.8, BUN 17, Creatinine 0.90, Estimated Creat Clear 124, Estimated GFR 92, Est GFR ( Amer) 111, Glucose 86, Calcium 8.1 L I & O for Last 24 hours: Intake & Output 06/10/21 06/11/21 06/12/21 06/13/21 11:59 11:59 11:59 11:59 Intake Total 1776 / 1776 1290 / 1290 720 / 720 800 / 800 Output Total 8850 / 8850 3775 / 3775 3425 / 3425 2500 / 2500 Balance -7074 / -7074 -2485 / -2485 -2705 / -2705 -1700 / -1700 Weight 196 lb 10 oz 189 lb 186 lb 4.8 oz 182 lb - Constitutional no acute distress - *Routine Respiratory Exam Present: rhonchi. Absent: wheezes - *Routine Cardiovascular Exam Present: RRR - *Routine Extremities Exam Absent: cyanosis, clubbing, edema - *Routine Neurological Exam Present: alert, oriented X3 Progress Note: A&P (1) Diastolic CHF Status: Acute (2) Pulmonary hypertension Status: Acute (3) SOB (shortness of breath) Status: Acute (4) Anemia Status: Acute (5) Skin ulcer of left foot, limited to breakdown of skin Status: Acute (6) Skin ulcer of right heel, limited to breakdown of skin Status: Acute (7) Edema of both lower extremities Status: Acute (8) Tobacco use Status: Acute (9) Discoloration of skin of lower leg Status: Acute (10) Bilateral pleural effusion Status: Acute (11) Acute respiratory failure with hypoxia Status: Acute (12) BMI 26.0-26.9,adult Status: Acute (13) Hyponatremia Status: Acute (14) Retroperitoneal lymphadenopathy Status: Acute (15) Splenomegaly Status: Acute (16) Elevated LFTs Status: Acute (17) Keratosis Status: Acute (18) CAD (coronary artery disease) Status: Chronic (19) HHD (hypertensive heart disease) Status: Chronic (20) Hyperlipidemia Status: Chronic (21) Tobacco abuse Status: Chronic Assessment and Plan for All Diagnoses:: Okay for discharge home from cardiology standpoint. Home medication recommendations: Lasix 40 mg twice daily Aspirin 81 mg daily Plavix 75 mg daily Atorvastatin 40 mg daily Lisinopril 2.5 mg daily Potassium 20 mEq twice daily Metoprolol succinate XL 25 mg daily Patient will need a BMP in 1 week Follow-up with us in 1 to 2 weeks. He normally sees Dr. Galvan.
--- NOTE | 2021-06-13 12:19 | HMH.DCSUM ---
General - General Admission date:: 06/02/21 Discharge date: 06/13/21 HPI HPI: States that over the past 2 weeks he has gradually become more and more weak. Says he is so profoundly weak now he can hardly get up to move around. States he is unable to get any rest and he also feels dehydrated. He has chronic ulcers on his legs being treated by wound care and Dr. Bhatt. He says these are unchanged recently. No increased redness or pain. No fever at home. Slight cough. No vomiting or diarrhea. No chest or abdominal pain. No hematemesis. No melena or hematochezia (Per Lesly Champion MD). Hemoglobin was 6.9 in the emergency department he did receive 2 units of packed red blood cells and currently hemoglobin is 8.8 Chest x-ray showed no acute findings 45-year-old male patient sitting up in bed he denies any pain or shortness of breath at present. Current oxygenation 92% on 4 L per nasal cannula. He does report ongoing issues with bilateral feet and ankles and seeing Dr. Matamoros in podiatry for these and wound care clinic. He is reminded that he needs to also follow-up with primary care in between appointments so that everyone is aware of his condition. Brother is in room. Patient denies any visible blood in urine or stool and denies any traumatic blood loss. Hospital Course Hospital Course: Abnormal Lab Results 06/13/21 05:41: RBC 4.13 L, Hgb 11.9 L, Hct 38.4 L, MCHC 31.0 L, Neut # (Auto) 7.9 H 06/13/21 05:41: Sodium 128 L, Chloride 91 L, Carbon Dioxide 33 H, Calcium 8.1 L Microbiology 06/06/21 12:04 Sputum - Expectorated Sputum Gram Stain - Final 06/06/21 12:04 Sputum - Expectorated Sputum Sputum Culture - Final Yeast 06/02/21 18:15 Blood Blood Culture - Final NO GROWTH AFTER 5 DAYS 06/02/21 18:15 Blood Blood Culture - Final NO GROWTH AFTER 5 DAYS 06/03/21 18:30 Nose - Nasal MRSA Culture - Final Negative Objective Vital signs: Temp Pulse Resp BP Pulse Ox 97.9 F 99 H 18 102/64 L 99 06/13/21 08:00 06/13/21 11:21 06/13/21 08:00 06/13/21 08:00 06/13/21 11:21 Results Labs on day of discharge: Labs from last 24 hours 06/13/21 06/13/21 05:41 05:41 WBC 10.4 D RBC 4.13 L Hgb 11.9 L Hct 38.4 L MCV 93.1 MCH 28.9 MCHC 31.0 L RDW 17.4 Plt Count 166 MPV 8.3 Neut % (Auto) 75.8 Lymph % (Auto) 17.5 [place] % (Auto) 5.9 Eos % (Auto) 0.4 Baso % (Auto) 0.3 Neut # (Auto) 7.9 H Lymph # (Auto) 1.8 [place] # (Auto) 0.6 Eos # (Auto) 0.0 Baso # (Auto) 0.0 Sodium 128 L Potassium 4.8 Chloride 91 L Carbon Dioxide 33 H Anion Gap 8.8 BUN 17 Creatinine 0.90 Estimated Creat Clear 124 Estimated GFR 92 Est GFR ( Amer) 111 Glucose 86 Calcium 8.1 L DS: Diagnosis - Discharge Diagnosis (1) Diastolic CHF Status: Acute (2) Pulmonary hypertension Status: Acute (3) SOB (shortness of breath) Status: Acute (4) Anemia Status: Acute (5) Skin ulcer of left foot, limited to breakdown of skin Status: Acute (6) Skin ulcer of right heel, limited to breakdown of skin Status: Acute (7) Edema of both lower extremities Status: Acute (8) Tobacco use Status: Acute (9) Discoloration of skin of lower leg Status: Acute (10) Bilateral pleural effusion Status: Acute (11) Acute respiratory failure with hypoxia Status: Acute (12) BMI 26.0-26.9,adult Status: Acute (13) Hyponatremia Status: Acute (14) Retroperitoneal lymphadenopathy Status: Acute (15) Splenomegaly Status: Acute (16) Elevated LFTs Status: Acute (17) Keratosis Status: Acute (18) CAD (coronary artery disease) Status: Chronic (19) HHD (hypertensive heart disease) Status: Chronic (20) Hyperlipidemia Status: Chronic (21) Toba
--- NOTE | 2021-06-13 13:00 | CARE MANAGER ---
MD ordered home O2, patient did not qualify (99% on room air) Called [facility] and talked with Tonia, they are gonna do a overnight pulse ox on this patient, to see if his levels drop at night.
[2021-06-13 13:34] LABS: Epstein-Barr Virus Early Ag Ab 14.5 U/mL (0.0-8.9)
--- NOTE | 2021-06-14 14:39 | CARE MANAGER ---
Spoke with patient mother and she states that patient is doing well, he is waling around independently and doing good. I did tell her that [facility] called this AM trying to get in touch with him for an overnight pulse ox, she states that she is aware and that she will call them back today.
[2021-07-12 19:38] LABS: Epstein-Barr DNA Quant, PCR NEGATIVE
== END 2021-06-13 13:17 | disposition home or self-care (01) | DRG 823 ==
LOC: ER 17:41 → 2ND 19:47
PROVIDERS: Internal Medicine; Internal Medicine Pulmonary Disease; Nurse Practitioner Family; Admitting Provider Family Medicine; Emergency Provider Emergency Medicine; PCP Emergency Medicine; Visit Provider Emergency Medicine
PROC: 4A023N8 Measurement of Cardiac Sampling and Pressure, Bilateral, Percutaneous Approach (ICD-10-PCS; principal; 2021-06-09 11:30)
DX: C85.93 Non-Hodgkin lymphoma, unspecified, intra-abdominal lymph nodes (principal); J18.9 Pneumonia, unspecified organism; J96.21 Acute and chronic respiratory failure with hypoxia; I50.33 Acute on chronic diastolic (congestive) heart failure; L97.411 Non-pressure chronic ulcer of right heel and midfoot limited to breakdown of skin; E87.1 Hypo-osmolality and hyponatremia; L03.90 Cellulitis, unspecified; T82.855A Stenosis of coronary artery stent, initial encounter; Z79.02 Long term (current) use of antithrombotics/antiplatelets; L97.521 Non-pressure chronic ulcer of other part of left foot limited to breakdown of skin; I11.0 Hypertensive heart disease with heart failure; F17.210 Nicotine dependence, cigarettes, uncomplicated; I27.20 Pulmonary hypertension, unspecified; I25.10 Atherosclerotic heart disease of native coronary artery without angina pectoris; R16.1 Splenomegaly, not elsewhere classified; I73.9 Peripheral vascular disease, unspecified; Z20.822 Contact with and (suspected) exposure to COVID-19; I25.2 Old myocardial infarction; M19.90 Unspecified osteoarthritis, unspecified site; I87.8 Other specified disorders of veins; E87.6 Hypokalemia; E83.51 Hypocalcemia; Z95.5 Presence of coronary angioplasty implant and graft; E78.2 Mixed hyperlipidemia; E61.1 Iron deficiency; D63.0 Anemia in neoplastic disease; Y83.1 Surgical operation with implant of artificial internal device as the cause of abnormal reaction of the patient, or of later complication, without mention of misadventure at the time of the procedure; Z71.6 Tobacco abuse counseling
CPT/HCPCS: 10005; 36415; 70450; 71045; 71260; 71275; 74176; 76705; 76870; 76942; 80048; 80053; 80061; 80074; 80076; 80202; 81001; 82272; 82607; 82728; 82803; 82810; 83050; 83540; 83550; 83605; 83615; 84436; 84443; 84484; 85007; 85014; 85018; 85025; 85048; 85049; 85378; 85651; 86140; 86318; 86663; 86703; 86850; 87040; 87070; 87077; 87081; 87205; 87581; 87632; 87798; 87799; 88305; 88313; 93005; 93306; 93460; 93970; 94640; 94760; 94761; 96365; 97116; 97162; 97166; 97530; 97535; 99152; 99153; 99284; C1725; C1769; C1894; C9803; G0238; G0328; G0432; J0456; J0574; J0696; J1644; P9016; Q9967; U0003; U0005

== ENCOUNTER → 2021-06-20 16:55 | Outpatient (CLI) | payer BC, SELFPAY ==
[2021-06-20 18:28] LABS: Anion Gap 5.1 mEq/L (5-15); Blood Urea Nitrogen 7 mg/dl (9-20); Calcium 7.6 mg/dl (8.4-10.2); Carbon Dioxide 34 mmol/L (22.0-30.0); Chloride 94 mmol/L (98-107); Estimated Glomerular Filt Rate 123 ml/min (>60); GFR (African American) 149 ML/MIN (>60); Glucose 93 mg/dl (74-100); Potassium 3.1 mmoL/L (3.5-5.1); Sodium 130 mmol/L (136-145)
== END ==
PROVIDERS: Visit Provider Emergency Medicine
DX: E87.6 Hypokalemia (principal); D64.9 Anemia, unspecified
CPT/HCPCS: 36415; 80048

== ENCOUNTER → 2021-07-04 16:11 | Outpatient (CLI) | payer BC, SELFPAY ==
[2021-07-04 18:03] LABS: Basophils # 0.1 K/mm3 (0-0.2); Eosinophils # 0.1 K/mm3 (0.0-0.4); Eosinophils % 1.4 % (0.1-12.0); Hemoglobin 9.6 g/dL (14.1-18.0); Lymphocytes % 41.4 % (10-50); Mean Corpuscular Volume 93.7 fl (80-94); Monocytes # 0.3 K/mm3 (0.1-1.0); Monocytes % 6.4 % (1.7-9.3); Neutrophils # 2.4 K/mm3 (1.8-7.8); Neutrophils % 49.9 % (37.0-80.0); Platelet Count 291 K/mm3 (142-424); Red Cell Distribution Width 20.6 % (11.5-17.5); White Blood Count 4.9 K/mm3 (4.8-10.8)
[2021-07-04 18:05] LABS: Chloride 95 mmol/L (98-107)
[2021-07-04 18:06] LABS: Potassium 3.4 mmoL/L (3.5-5.1); Sodium 134 mmol/L (136-145)
[2021-07-04 18:09] LABS: Anion Gap 5.4 mEq/L (5-15); Blood Urea Nitrogen 8 mg/dl (9-20); Calcium 7.8 mg/dl (8.4-10.2); Carbon Dioxide 37 mmol/L (22.0-30.0); Estimated Glomerular Filt Rate 106 ml/min (>60); GFR (African American) 128 ML/MIN (>60); Glucose 80 mg/dl (74-100)
== END ==
PROVIDERS: Internal Medicine Cardiovascular Disease; Visit Provider Emergency Medicine
DX: I25.10 Atherosclerotic heart disease of native coronary artery without angina pectoris (principal); I73.9 Peripheral vascular disease, unspecified; L57.0 Actinic keratosis; L81.9 Disorder of pigmentation, unspecified; M20.41 Other hammer toe(s) (acquired), right foot; M20.42 Other hammer toe(s) (acquired), left foot; R60.0 Localized edema; T07.XXXA Unspecified multiple injuries, initial encounter; Z51.89 Encounter for other specified aftercare; Z72.0 Tobacco use; D64.9 Anemia, unspecified
CPT/HCPCS: 36415; 80048; 85025

== ENCOUNTER 2021-07-07 14:00 | Outpatient (RCR) | payer BC, SELFPAY ==
--- NOTE | 2021-06-22 10:50 | HMH.PTOPEV ---
PT Outpatient Evaluation Rehab PT Outpatient Evaluation Start: 06/22/21 10:19 Freq: Status: Active Protocol: Document 06/22/21 10:19 ELIANE (Rec: 06/22/21 10:50 ELIANE [id number]) Electronically Signed By William Nascimento, PT 06/22/21 10:19 Outpatient Therapy Subjective History Subjective History This is the initial Physical Therapy evaluation for Fili Bonillay Bruce. Pt is a 45 y/o male referred to PT for c/o weakness, falls, decreased endurance and pain in B hips. Pt reports he has history of cardiac issues including 2 VA, 2 stents, recent attack of anemia requiring 5 units of RBC, and most recently possible dx of leukemia. Pt reports his legs feel weak, he has hard time lifting them. He does state that some of it is do to pain from the lymph node biopsies in inguinal area . Pt does reports frequent flls due to tripping when tired Chief Complaint Pain,Weakness,Other Symptoms Relieved By Rest/Positioning Symptoms Aggravated By Physical Activity,Walking Current Functional Limitations Housework,Recreation Activity, Walking,Stairs,Balance Symptom Description Intermittent Outpatient Therapy Assessment Impairments Problems/Impairmments Impaired Strength,Impaired Walking,Impaired Standing, Impaired Household Care, Impaired Stair Climbing, Impaired Recreational Activities,Subjective C/O Pain ,Impaired Self Care/Self Management Prognosis Rehab Potential Fair Comment Pt will be 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 Clinical Impression Consistent with Diagnosis Yes Short Term Goals Number of Weeks 2 Increase Strength Yes: 4/5 B hip gross Increase Endurance Yes: amb 5 min Increase Ability to Walk Yes: 200' Patient to be Ind w/ HEP Yes Care Home Goals Number of Weeks 4 Increase Endurance
== END 2021-07-07 14:05 | disposition home or self-care (01) ==
LOC: PT 14:00
PROVIDERS: PCP Internal Medicine; Visit Provider Emergency Medicine
DX: R53.1 Weakness (principal)
CPT/HCPCS: 97110; 97163

== ENCOUNTER → 2021-07-15 14:53 | Outpatient (CLI) | payer BC, SELFPAY ==
[2021-07-15 15:49] LABS: Anion Gap 8.2 mEq/L (5-15); Blood Urea Nitrogen 12 mg/dl (9-20); Calcium 8.5 mg/dl (8.4-10.2); Carbon Dioxide 29 mmol/L (22.0-30.0); Chloride 102 mmol/L (98-107); Estimated Glomerular Filt Rate 147 ml/min (>60); GFR (African American) 178 ML/MIN (>60); Glucose 98 mg/dl (74-100); Potassium 4.2 mmoL/L (3.5-5.1); Sodium 135 mmol/L (136-145)
[2021-07-15 17:28] LABS: Basophils % 0.9 % (0.1-2.0); Eosinophils # 0.1 K/mm3 (0.0-0.4); Eosinophils % 2.2 % (0.1-12.0); Hematocrit 33.4 % (42.0-52.0); Hemoglobin 11.1 g/dL (14.1-18.0); Lymphocytes # 1.8 K/mm3 (0.7-4.5); Mean Corpuscular HGB Conc 33.2 g/dL (31.8-35.4); Mean Corpuscular Volume 93.2 fl (80-94); Monocytes # 0.3 K/mm3 (0.1-1.0); Monocytes % 6.1 % (1.7-9.3); Neutrophils # 2.4 K/mm3 (1.8-7.8); Neutrophils % 51.8 % (37.0-80.0); Platelet Count 293 K/mm3 (142-424); Red Blood Count 3.58 M/mm3 (4.60-6.20); Red Cell Distribution Width 18.3 % (11.5-17.5); White Blood Count 4.6 K/mm3 (4.8-10.8)
== END ==
PROVIDERS: Physician Assistant; Visit Provider Internal Medicine Cardiovascular Disease
DX: D64.9 Anemia, unspecified (principal); E87.6 Hypokalemia
CPT/HCPCS: 36415; 80048; 85025

== ENCOUNTER → 2021-07-18 17:05 | Outpatient (CLI) | payer BC, SELFPAY | PROVIDERS: Visit Provider Podiatrist | DX: L97.521 Non-pressure chronic ulcer of other part of left foot limited to breakdown of skin (principal); B95.2 Enterococcus as the cause of diseases classified elsewhere; B95.7 Other staphylococcus as the cause of diseases classified elsewhere | CPT/HCPCS: 87070; 87077; 87186; 87205 ==

== ENCOUNTER → 2021-07-19 12:59 | Outpatient (CLI) | payer BC, SELFPAY ==
[2021-07-19 13:55] VITALS: PULSE 72; PULSE 79
== END ==
PROVIDERS: PCP Emergency Medicine; Visit Provider Internal Medicine Pulmonary Disease
DX: R06.02 Shortness of breath (principal)
CPT/HCPCS: 94060; 94618; 94640; 94727; 94729

== ENCOUNTER → 2021-07-22 16:54 | Outpatient (CLI) | payer BC, SELFPAY | PROVIDERS: PCP Emergency Medicine; Visit Provider Internal Medicine Medical Oncology | DX: D50.9 Iron deficiency anemia, unspecified (principal) ==

== ENCOUNTER → 2021-07-25 07:52 | Outpatient (CLI) | payer BC, SELFPAY ==
--- NOTE | 2021-07-25 07:59 | CT_ITS ---
FINAL REPORT CLINICAL HISTORY: lymphadenopathy, iron deficiency, anemia COMPARISON: June 08, 2021 FINDINGS: CT OF THE ABDOMEN AND PELVIS WITH CONTRAST Axial CT images of the abdomen and pelvis were obtained after the administration of oral and iv contrast. Coronal reformatted images were also obtained and reviewed.This study was performed with techniques to keep radiation doses as low as reasonably achievable (ALARA). Individualized dose reduction techniques using automated exposure control or adjustment of mA and/or kV according to the patient's size were employed. Abdomen: The heart is normal in size. The liver has an unremarkable appearance, without evidence of mass or biliary ductal dilatation. There is a 16 mm mass in the liver dome which is new or larger since the prior CT. The spleen is enlarged measuring 16 cm in length. The gallbladder surgically absent. No adrenal mass is present. The pancreas has an unremarkable appearance. The kidneys are normal, without evidence of mass or hydronephrosis. The aorta is normal in caliber. There are persistent enlarged retroperitoneal lymph nodes. A precaval lymph node measures 16 mm and was 16 mm previously. Other lymph nodes are stable. There is improved anasarca and improved small amount of ascites. There is a subacute right 10th posterior rib fracture. Pelvis: The appendix not visualized. The urinary bladder is unremarkable. No inflammatory process is seen. There are multiple enlarged inguinal lymph nodes. A right inguinal lymph node measures 20 mm and is stable. Other lymph nodes are stable. There is no evidence of bowel obstruction. IMPRESSION: Persistent splenomegaly, stable. Stable adenopathy which is worrisome for neoplasm. New or enlarging mass in the right liver dome of uncertain etiology. Neoplastic involvement not excluded. Could be further evaluated with follow-up CT or liver MRI. Reviewed, Interpreted and Dictated by Sabino Scott III, MD Transcribed by Nallely Garvin Authenticated by Sabino Scott III, MD on 07/25/2021 10:44:09 AM [facility]
--- NOTE | 2021-07-25 07:59 | CT_ITS ---
FINAL REPORT CLINICAL HISTORY: LYMPHADENOPATHY,IRON DEFICIENCY,ANEMIA COMPARISON: June 08, 2021 FINDINGS: Axial CT images of the chest were obtained with contrast. Coronal reformatted images were also obtained. This study was performed with techniques to keep radiation doses as low as reasonably achievable, (ALARA). Individualized dose reduction techniques using automated exposure control or adjustment of mA and/or KV according to the patient's size were employed. There is improved mediastinal adenopathy with persistent borderline size mediastinal lymph nodes. There is bilateral gynecomastia. No axillary mass or adenopathy is identified. On lung window images, there has been interval resolution of pleural effusions. There has been interval resolution of ground-glass opacities. No localized pulmonary inflammatory process is identified. IMPRESSION: Interval resolution of pleural effusions and ground-glass opacities. Improved mediastinal adenopathy with persistent borderline size mediastinal lymph nodes. Reviewed, Interpreted and Dictated by Sabino Scott III, MD Transcribed by Nallely Garvin Authenticated by Sabino Scott III, MD on 07/25/2021 09:55:30 AM [facility]
[2021-07-25 09:34] LABS: MANUAL DIFFERENTIAL MANUAL DIFFERENTIAL (MANUAL DIFF)
[2021-07-25 10:33] LABS: Basophils # 0.1 K/mm3 (0-0.2); Basophils % 0.8 % (0.1-2.0); Eosinophils # 0.1 K/mm3 (0.0-0.4); Eosinophils % 1.9 % (0.1-12.0); Hematocrit 32.3 % (42.0-52.0); Hemoglobin 10.6 g/dL (14.1-18.0); Lymphocytes # 1.4 K/mm3 (0.7-4.5); Lymphocytes % 26.2 % (10-50); Mean Corpuscular HGB Conc 32.8 g/dL (31.8-35.4); Mean Corpuscular Hemoglobin 31.2 pg (27.0-31.2); Mean Corpuscular Volume 95.3 fl (80-94); Mean Platelet Volume 7.8 fl (7.4-10.4); Monocytes # 0.3 K/mm3 (0.1-1.0); Monocytes % 5.8 % (1.7-9.3); Neutrophils # 3.6 K/mm3 (1.8-7.8); Neutrophils % 65.2 % (37.0-80.0); Platelet Count 237 K/mm3 (142-424); Red Blood Count 3.39 M/mm3 (4.60-6.20); Red Cell Distribution Width 17.9 % (11.5-17.5); White Blood Count 5.5 K/mm3 (4.8-10.8)
[2021-07-25 10:38] LABS: Alanine Aminotransferase 13 U/L (12-78); Albumin Level 3.5 g/dl (3.5-5.0); Albumin/Globulin Ratio 1.5 (1.1-1.8); Alkaline Phosphatase 115 U/L (38-126); Anion Gap 7.6 mEq/L (5-15); Aspartate Amino Transferase 19 U/L (17-59); Bilirubin,Total 0.4 mg/dl (0.2-1.3); Blood Urea Nitrogen 12 mg/dl (9-20); Calcium 8.2 mg/dl (8.4-10.2); Carbon Dioxide 29 mmol/L (22.0-30.0); Chloride 101 mmol/L (98-107); Estimated Glomerular Filt Rate 147 ml/min (>60); GFR (African American) 178 ML/MIN (>60); Globulin 2.4 g/dL (1.3-3.2); Glucose 102 mg/dl (74-100); Lactate Dehydrogenase 178 U/L (313-618); Potassium 3.6 mmoL/L (3.5-5.1); Sodium 134 mmol/L (136-145); Total Protein,Serum 5.9 g/dl (6.3-8.2)
[2021-07-25 11:44] LABS: Vitamin B12 287 pg/mL (239-931)
[2021-07-25 12:05] LABS: Iron 48 ug/dL (49-181)
[2021-07-25 12:15] LABS: Total Iron Binding Capacity 353 ug/dL (261-462)
[2021-07-25 12:37] LABS: Thyroid Stimulating Hormone 2.95 uIU/mL (0.465-4.68)
[2021-07-25 13:53] LABS: Lymphocytes % 11 % (10-50); Monocytes % 3 % (2-9); Neutrophils % 86 % (42-76); Platelet Estimate Normal; RBC Morphology Normal; Total Cells Counted 100
[2021-07-26 08:37] LABS: HIV Screen 4th Generation wRfx Non Reactive (Non Reactive); Hep A Ab, IgM Negative (Negative); Hepatitis B Core Antibody IgM Negative (Negative); Hepatitis B Surface Antigen Negative (Negative); Hepatitis C Antibody 0.1 s/co ratio (0.0-0.9)
[2021-07-26 12:15] LABS: Haptoglobin 121 mg/dL (23-355)
== END ==
PROVIDERS: Physician Assistant; PCP Emergency Medicine; Visit Provider Internal Medicine Medical Oncology
DX: D50.9 Iron deficiency anemia, unspecified (principal); R59.1 Generalized enlarged lymph nodes
CPT/HCPCS: 36415; 71260; 74177; 80053; 80074; 82525; 82607; 82728; 82746; 83010; 83540; 83550; 83615; 84443; 85007; 85014; 85018; 85048; 85049; 86703; G0432; Q9967

== ENCOUNTER 2021-08-03 10:00 | Outpatient (RCR) | payer BC, SELFPAY ==
--- NOTE | 2020-12-20 14:25 | HMH.PTOPWND ---
Rehab Outpt Wound Evaluation Rehab OP Wound Evaluation Start: 12/20/20 13:09 Freq: Status: Active Protocol: Document 12/20/20 14:06 MARCO (Rec: 12/20/20 14:24 PHOJOEY [id number]) Electronically Signed By Wilmer Pascual, PT 12/20/20 14:06 Subjective/History History History Pt is 45 yowm who presents with c/o B dorsal foot wounds, R foot present x 6 mos and L foot x 2 wks. He reports insidious onset of all wounds. He had cultures taken by podiatry and was positive for MRSA. He has responded to oral abx and appears to be healing at this time. He has hx of PAD, HI, CAD, CCY, Appy, and is a current smoker. Subjective Subjective Pt reports increased tenderness in adarsh-wound skin this date. Wound Eval Wound Left Posterior Foot Wound Type infection Is This a Chronic Wound No Wound Length (cm) 7.5 Wound Width (cm) 7.0 Wound Bed Appearance Yellow Percentage of Eschar (Yellow) (%) 100 Wound Margins Description Well Defined Edema Type Pitting Edema Degree 1+ Query Text:1+ Trace, Barely Detectable, Rebound 15-30 seconds 2+ Moderate, Slight Indentation, Rebound 10-20 seconds 3+ Deep, Deeper Indentation, Rebound > 30 seconds 4+ Very Deep, Rebound > 60 seconds Edema Appearance Shiny,Tight,Hard,Red Drainage Amount None Wound Topical Solution/Irrigant Saline Irrigant Primary Dressing Composite Comment optifoam thin Wound Secondary Dressing Type Gauze Roll/Wrap Wound Debridement Method Sharps,Forceps,Gauze Wound Debridement Amount of Tissue Minimal Removed Dressing Change Patient Tolerance Tolerated Well Right Posterior Foot Wound Type infection Is This a Chronic Wound Yes Wound Length (cm) 7.0 Wound Width (cm) 5.0 Wound Bed Appearance Yellow Percentage of Eschar (Yellow) (%) 100 Wound Margins Description Well Defined Edema Type Pitting Edema Degree 1+ Query Text:1+ Trace, Barely Detectable, Rebound 15-30 seconds 2+ Moderate, Slight Indentation, Rebound 10-20 seconds 3+ Deep, Deeper Indentation, Rebound > 30 seconds
--- NOTE | 2021-01-27 09:05 | HMH.RHREAS ---
Rehab Reassessment Rehab OP Re-assessment Start: 01/27/21 08:59 Freq: Status: Active Protocol: Document 01/27/21 09:00 MARCO (Rec: 01/27/21 09:05 MARCO [id number]) Electronically Signed By Wilmer Pascual, PT 01/27/21 09:00 Rehab Re-assessment Subjective Subjective Pt remains anxious about B foot wounds, I don't want to lose my feet. No c/o pain at this time. Objective Objective Notes R dorsal foot wound: L= 4.0 cm , W= 5.3 cm. L lateral dorsal foot wound: L = 7.0 cm, W= 7.6 cm. B foot wounds show no depth at all, moderate scabbing around the perimeter. Assessment Progress Assessment Slower Than Expected Assessment Notes Pt anxiety definitely plays a roll in his slow healing. Wounds continue to improve and re-aggravate intermittently, but overall have generally shown some healing. Patient goals met none Goals Not Met ST LT,2 Revised Goals none Plan Plan Continue per initial POC. Frequency of Therapy 2 x/wk Duration of therapy 8 wks Time and Billing Re-Eval Time 15 Re-Eval Billing Units 1 PHYSICIAN CERTIFICATION: I certify the specified therapy services for Fili Barrera are required, authorized, and reviewed every 30 days.
--- NOTE | 2021-02-24 13:45 | HMH.RHREAS ---
Rehab Reassessment Rehab OP Re-assessment Start: 01/27/21 08:59 Freq: Status: Active Protocol: Document 02/24/21 13:43 MARCO (Rec: 02/24/21 13:45 PHOJOEY [id number]) Electronically Signed By Wilmer Pascual, PT 02/24/21 13:43 Rehab Re-assessment Subjective Subjective Pt reports he still has pain increased in his R heel. Objective Objective Notes R medial ankle wound: L= 6.1 cm, W= 4.3 cm L lateral ankle wound: L= 3.5 cm, W= 2.9 cm Assessment Progress Assessment Progressing as Expected Assessment Notes Continues to have increased dry skin throughout B feet. Wounds are steadily decreasing in size, but drainage remains increased on the R ankle wound. Patient goals met none Goals Not Met ST LT,2 Revised Goals none Plan Plan Continue per initial POC. Frequency of Therapy 2 x/wk Duration of therapy 8 wks Time and Billing Re-Eval Time 15 Re-Eval Billing Units 1 PHYSICIAN CERTIFICATION: I certify the specified therapy services for Fili Barrera are required, authorized, and reviewed every 30 days.
--- NOTE | 2021-03-24 15:58 | HMH.RHREAS ---
Rehab Reassessment Rehab OP Re-assessment Start: 01/27/21 08:59 Freq: Status: Active Protocol: Document 03/24/21 15:54 MARCO (Rec: 03/24/21 15:57 PHOJOEY [id number]) Electronically Signed By Wilmer Pascual, PT 03/24/21 15:54 Rehab Re-assessment Subjective Subjective Pt reports his R heel continues to be painful, but otherwise B LE feel about the same. Objective Objective Notes R medial ankle wound: L= 7.2 cm, W= 3.2 cm. L lateral heel wound: L= 1.0 cm, W= 1.0 cm New onset L medial heel/ankle wound: L= 4.0 cm, W= 2.0 cm. Assessment Progress Assessment Progressing as Expected Assessment Notes Pt has less drainage and less slough noted throughout all wounds B, however he continues to need debridement of necrotic tissue. New onset wounds on the L medial heel have no known origin and pt is unsure of exact timeline for their appearance. Patient goals met none Goals Not Met ST LT,2 Revised Goals none Plan Plan Continue per initial POC. Frequency of Therapy 2 x/wk Duration of therapy 8 wks Time and Billing Re-Eval Time 15 Re-Eval Billing Units 1 PHYSICIAN CERTIFICATION: I certify the specified therapy services for Fili Barrera are required, authorized, and reviewed every 30 days.
--- NOTE | 2021-04-18 11:39 | HMH.RHREAS ---
Rehab Reassessment Rehab OP Re-assessment Start: 01/27/21 08:59 Freq: Status: Active Protocol: Document 04/18/21 11:35 MARCO (Rec: 04/18/21 11:39 MARCO [id number]) Electronically Signed By Wilmer Pascual, PT 04/18/21 11:35 Rehab Re-assessment Subjective Subjective Pt reports he feels better overall, continues to have some pain in the L heel. Objective Objective Notes L medial ankle wound: L= 4.5 cm, W= 4.5 cm, D= 0.0 cm. Edema: 1+ pitting to B lower legs. Assessment Progress Assessment Progressing as Expected Assessment Notes Continues to heal steadily, but with intermittent worsening of wounds. R LE wounds appear to be fully healed at this time. Patient goals met ST Goals Not Met LT,2 Revised Goals none Plan Plan Continue per initial POC. Frequency of Therapy 2 x/wk Duration of therapy 8 wks Time and Billing Re-Eval Time 15 Re-Eval Billing Units 1 PHYSICIAN CERTIFICATION: I certify the specified therapy services for Fili Barrera are required, authorized, and reviewed every 30 days.
--- NOTE | 2021-05-20 16:24 | HMH.RHREAS ---
Rehab Reassessment Rehab OP Re-assessment Start: 01/27/21 08:59 Freq: Status: Active Protocol: Document 05/20/21 16:23 MARCO (Rec: 05/20/21 16:24 MARCO [id number]) Electronically Signed By Wilmer Pascual, PT 05/20/21 16:23 Rehab Re-assessment Subjective Subjective Pt with no c/o pain, but worries about dryness of his skin B. Objective Objective Notes L medial ankle wound: L= 8.9 cm, W= 8.9 cm, D= 0.0 cm. Edema: 1+ pitting to B lower legs. Assessment Progress Assessment Progressing as Expected Assessment Notes Worsening of L medial heel wound this date, needs further debridement. Patient goals met ST Goals Not Met LT,2 Revised Goals none Plan Plan Continue per initial POC. Frequency of Therapy 2 x/wk Duration of therapy 8 wks Time and Billing Re-Eval Time 15 Re-Eval Billing Units 1 PHYSICIAN CERTIFICATION: I certify the specified therapy services for Fili Barrera are required, authorized, and reviewed every 30 days.
--- NOTE | 2021-06-16 10:45 | HMH.RHREAS ---
Rehab Reassessment Rehab OP Re-assessment Start: 01/27/21 08:59 Freq: Status: Active Protocol: Document 06/16/21 10:41 MARCO (Rec: 06/16/21 10:45 MARCO [id number]) Electronically Signed By Wilmer Pascual, PT 06/16/21 10:41 Rehab Re-assessment Subjective Subjective Pt reports he feels slightly better with his foot wounds. He was recently discharged from hospital after ~ 2 wks admission with multiple medical problems. Objective Objective Notes L medial ankle wound: L= 3.0 cm, W= 3.0 cm, D= 0.0 cm. R medial ankle wound: L= 1.5 cm, W= 4.0 cm, D= 0.0 cm. Multiple areas of dry skin noted throughout B feet and ankles, but without open sores noted currently. Assessment Progress Assessment Slower Than Expected Assessment Notes Recent hospitalization slowed his healing rate somewhat due to multiple co-morbidities. Wounds to B feet do appear to be healing well, however, and less edema is noted currently Patient goals met ST Goals Not Met LT,2 Revised Goals none Plan Plan Continue per initial POC. Frequency of Therapy 2 x/wk Duration of therapy 8 wks Time and Billing Re-Eval Time 13 Re-Eval Billing Units 1 PHYSICIAN CERTIFICATION: I certify the specified therapy services for Fili Barrera are required, authorized, and reviewed every 30 days.
--- NOTE | 2021-08-03 10:19 | HMH.RHREAS ---
Rehab Reassessment Rehab OP Re-assessment Start: 01/27/21 08:59 Freq: Status: Active Protocol: Document 08/03/21 10:14 MARCO (Rec: 08/03/21 10:19 MARCO [id number]) Electronically Signed By Wilmer Pascual, PT 08/03/21 10:14 Rehab Re-assessment Subjective Subjective Pt reports he has had a difficult time making it to his appointments, but has been seen by podiatry. Objective Objective Notes L medial ankle wound: L= 2.0 cm, W= 4.0 cm, D= 0.0 cm, Currently appears completely dry without drainage at this time. Assessment Progress Assessment Progressing as Expected Assessment Notes Currently all wounds to B feet appear to be dry with either fully epithelialized skin or healing scabs. No current needs for further debridement, but with pts hx, this could change rapidly. Patient goals met ST LT,2 Revised Goals none Plan Plan Will d/c pt at this time, but high likelyhood of further debridement being required at a later date. Frequency of Therapy 0 Duration of therapy 0 Time and Billing Re-Eval Time 13 Re-Eval Billing Units 1 PHYSICIAN CERTIFICATION: I certify the specified therapy services for Fili Barrera are required, authorized, and reviewed every 30 days.
== END 2021-08-03 11:00 | disposition home or self-care (01) ==
LOC: PT 10:00
PROVIDERS: PCP Emergency Medicine; Visit Provider Nurse Practitioner
DX: S91.301A Unspecified open wound, right foot, initial encounter (principal); L97.411 Non-pressure chronic ulcer of right heel and midfoot limited to breakdown of skin; L97.511 Non-pressure chronic ulcer of other part of right foot limited to breakdown of skin
CPT/HCPCS: 29580; 97140; 97162; 97164; 97597; 97598

== ENCOUNTER → 2021-08-03 10:34 | Outpatient (CLI) | payer BC, SELFPAY | PROVIDERS: Visit Provider Internal Medicine Gastroenterology | DX: Z01.812 Encounter for preprocedural laboratory examination (principal); Z11.52 Encounter for screening for COVID-19 | CPT/HCPCS: C9803; U0003; U0005 ==

== ENCOUNTER → 2021-08-11 08:53 | Outpatient (CLI) | payer BC, SELFPAY ==
[2021-08-11 09:23] LABS: Basophils # 0.1 K/mm3 (0-0.2); Basophils % 0.9 % (0.1-2.0); Eosinophils # 0.1 K/mm3 (0.0-0.4); Hematocrit 33.3 % (42.0-52.0); Hemoglobin 11.3 g/dL (14.1-18.0); Lymphocytes # 1.2 K/mm3 (0.7-4.5); Lymphocytes % 25.2 % (10-50); Mean Corpuscular Hemoglobin 31.3 pg (27.0-31.2); Mean Platelet Volume 8.6 fl (7.4-10.4); Monocytes # 0.2 K/mm3 (0.1-1.0); Monocytes % 4.7 % (1.7-9.3); Neutrophils # 3.3 K/mm3 (1.8-7.8); Neutrophils % 67.2 % (37.0-80.0); Platelet Count 255 K/mm3 (142-424); Red Blood Count 3.62 M/mm3 (4.60-6.20); Red Cell Distribution Width 16.4 % (11.5-17.5); White Blood Count 4.9 K/mm3 (4.8-10.8)
== END ==
PROVIDERS: Internal Medicine Medical Oncology; PCP Emergency Medicine; Visit Provider Emergency Medicine
DX: I89.0 Lymphedema, not elsewhere classified (principal)
CPT/HCPCS: 36415; 85025

== ENCOUNTER → 2021-08-16 18:13 | Outpatient (CLI) | payer BC, SELFPAY | PROVIDERS: PCP Emergency Medicine; Visit Provider Internal Medicine Gastroenterology | DX: Z01.812 Encounter for preprocedural laboratory examination (principal); Z11.52 Encounter for screening for COVID-19 ==

== ENCOUNTER 2021-08-17 08:50 | Outpatient (CLI) | payer BC, SELFPAY ==
[2021-08-17 13:20] VITALS: BP 131/56; PULSE 72; RESP 18; O2SAT 99
[2021-08-17 14:05] VITALS: BP 99/44; PULSE 75; RESP 18; O2SAT 98
== END 2021-08-17 14:05 | disposition home or self-care (01) ==
PROVIDERS: PCP Emergency Medicine; Visit Provider Internal Medicine Medical Oncology
DX: R93.89 Abnormal findings on diagnostic imaging of other specified body structures; D50.9 Iron deficiency anemia, unspecified; R59.0 Localized enlarged lymph nodes; Z11.52 Encounter for screening for COVID-19
CPT/HCPCS: 96365; C9803; J1756; U0003; U0005

== ENCOUNTER 2021-08-26 13:01 | Outpatient (CLI) | payer BC, SELFPAY ==
[2021-08-26 13:30] VITALS: BP 110/60; PULSE 92; RESP 20; TEMP 36.1; O2SAT 95
[2021-08-26 15:00] VITALS: BP 112/74; PULSE 70; RESP 20; TEMP 36.9; O2SAT 95
--- NOTE | 2021-09-01 13:17 | DIET.NUTRFU ---
Spoke to patient via phone, he is currently undergoing chemo and radiation tx. he denies any nausea or weight loss. Experiencing edema in BLE. On diuretic tx and sodium has been low. Encouraged him to elevate legs and cut back on sodium intake. He has also been cutting back on fluid/pop intake, based on fluid status. Provided contact information for any further concerns
== END 2021-08-26 14:00 | disposition home or self-care (01) ==
LOC: INF 13:02
PROVIDERS: PCP Emergency Medicine; Visit Provider Internal Medicine Medical Oncology
DX: R59.9 Enlarged lymph nodes, unspecified (principal); R93.89 Abnormal findings on diagnostic imaging of other specified body structures
CPT/HCPCS: 96365; 96366; J1756

== ENCOUNTER 2021-09-02 13:06 | Outpatient (CLI) | payer BC, SELFPAY ==
[2021-09-02 13:30] VITALS: BP 104/38; PULSE 74; RESP 16; TEMP 36.1; O2SAT 97
[2021-09-02 14:05] VITALS: BP 104/44; PULSE 76; RESP 16
== END 2021-09-02 14:25 | disposition home or self-care (01) ==
LOC: INF 13:06
PROVIDERS: PCP Emergency Medicine; Visit Provider Internal Medicine Medical Oncology
DX: R59.9 Enlarged lymph nodes, unspecified (principal); R93.89 Abnormal findings on diagnostic imaging of other specified body structures
CPT/HCPCS: 96365; J1756

== ENCOUNTER 2021-09-09 13:04 | Outpatient (CLI) | payer BC, SELFPAY ==
[2021-09-09 13:20] VITALS: BP 100/64; PULSE 78; RESP 18; O2SAT 98
[2021-09-09 13:50] VITALS: BP 110/56; PULSE 70; RESP 16
== END 2021-09-09 14:05 | disposition home or self-care (01) ==
LOC: INF 13:05
PROVIDERS: PCP Emergency Medicine; Visit Provider Internal Medicine Medical Oncology
DX: R59.9 Enlarged lymph nodes, unspecified (principal); R93.89 Abnormal findings on diagnostic imaging of other specified body structures
CPT/HCPCS: 96365; J1756

== ENCOUNTER → 2021-09-13 14:44 | Outpatient (CLI) | payer BC, SELFPAY ==
--- NOTE | 2021-09-13 14:55 | XR_ITS ---
FINAL REPORT CLINICAL HISTORY: short of air, smoker. no chest surgeries. COMPARISON: June 07, 2021 FINDINGS: A single portable view of the chest was obtained. The heart size and pulmonary vascularity are within normal limits. The mediastinum is within normal limits. There is mild right base atelectasis or scarring. There is improved aeration of the lungs from the prior exam. The bony thorax is intact. IMPRESSION: Mild right base atelectasis or scarring. Reviewed, Interpreted and Dictated by Sabino Scott III, MD Transcribed by Megha Cheung Authenticated and [facility]
[2021-09-13 15:36] LABS: Basophils # 0.1 K/mm3 (0-0.2); Basophils % 1.5 % (0.1-2.0); Eosinophils # 0.1 K/mm3 (0.0-0.4); Eosinophils % 1.4 % (0.1-12.0); Hematocrit 37.5 % (42.0-52.0); Hemoglobin 12.3 g/dL (14.1-18.0); Lymphocytes # 1.7 K/mm3 (0.7-4.5); Mean Corpuscular HGB Conc 32.7 g/dL (31.8-35.4); Mean Corpuscular Hemoglobin 29.6 pg (27.0-31.2); Mean Corpuscular Volume 90.4 fl (80-94); Mean Platelet Volume 7.4 fl (7.4-10.4); Monocytes # 0.2 K/mm3 (0.1-1.0); Monocytes % 4.6 % (1.7-9.3); Neutrophils # 2.9 K/mm3 (1.8-7.8); Neutrophils % 58.4 % (37.0-80.0); Platelet Count 218 K/mm3 (142-424); Red Blood Count 4.14 M/mm3 (4.60-6.20); Red Cell Distribution Width 15.8 % (11.5-17.5); White Blood Count 4.9 K/mm3 (4.8-10.8)
[2021-09-13 15:57] LABS: Alanine Aminotransferase 14 U/L (12-78); Albumin Level 3.9 g/dl (3.5-5.0); Albumin/Globulin Ratio 1.6 (1.1-1.8); Alkaline Phosphatase 119 U/L (38-126); Anion Gap 8.9 mEq/L (5-15); Aspartate Amino Transferase 22 U/L (17-59); Bilirubin,Total < 0.1 mg/dl (0.2-1.3); Blood Urea Nitrogen 18 mg/dl (9-20); Calcium 8.9 mg/dl (8.4-10.2); Carbon Dioxide 33 mmol/L (22.0-30.0); Chloride 97 mmol/L (98-107); Estimated Glomerular Filt Rate 105 ml/min (>60); GFR (African American) 127 ML/MIN (>60); Globulin 2.5 g/dL (1.3-3.2); Glucose 140 mg/dl (74-100); Potassium 3.9 mmoL/L (3.5-5.1); Sodium 135 mmol/L (136-145); Total Protein,Serum 6.4 g/dl (6.3-8.2)
== END ==
PROVIDERS: PCP Emergency Medicine; Visit Provider Emergency Medicine
DX: R06.02 Shortness of breath (principal); E87.1 Hypo-osmolality and hyponatremia; R53.83 Other fatigue
CPT/HCPCS: 36415; 71045; 80053; 85025

== ENCOUNTER 2021-09-16 13:06 | Outpatient (CLI) | payer BC, SELFPAY ==
[2021-09-16 13:35] VITALS: BP 112/51; PULSE 75; RESP 18; TEMP 36.4; O2SAT 99
[2021-09-16 14:20] VITALS: BP 118/54; PULSE 74; RESP 17; O2SAT 100
== END 2021-09-16 14:20 | disposition home or self-care (01) ==
LOC: INF 13:06
PROVIDERS: PCP Emergency Medicine; Visit Provider Internal Medicine Medical Oncology
DX: R59.0 Localized enlarged lymph nodes (principal); R93.89 Abnormal findings on diagnostic imaging of other specified body structures; D64.9 Anemia, unspecified
CPT/HCPCS: 96365; J1756

== ENCOUNTER → 2021-10-06 15:44 | Outpatient (CLI) | payer BC, SELFPAY ==
[2021-10-06 16:10] LABS: Basophils % 0.8 % (0.1-2.0); Eosinophils # 0.1 K/mm3 (0.0-0.4); Eosinophils % 1.7 % (0.1-12.0); Hematocrit 32.1 % (42.0-52.0); Hemoglobin 11.1 g/dL (14.1-18.0); Lymphocytes # 1.4 K/mm3 (0.7-4.5); Lymphocytes % 31.8 % (10-50); Mean Corpuscular HGB Conc 34.5 g/dL (31.8-35.4); Mean Corpuscular Hemoglobin 29.8 pg (27.0-31.2); Mean Corpuscular Volume 86.3 fl (80-94); Mean Platelet Volume 7.6 fl (7.4-10.4); Monocytes # 0.3 K/mm3 (0.1-1.0); Monocytes % 5.7 % (1.7-9.3); Neutrophils # 2.6 K/mm3 (1.8-7.8); Platelet Count 216 K/mm3 (142-424); Red Blood Count 3.72 M/mm3 (4.60-6.20); Red Cell Distribution Width 15.1 % (11.5-17.5); White Blood Count 4.4 K/mm3 (4.8-10.8)
[2021-10-06 17:33] LABS: Alanine Aminotransferase 10 U/L (12-78); Albumin Level 3.5 g/dl (3.5-5.0); Albumin/Globulin Ratio 1.4 (1.1-1.8); Alkaline Phosphatase 111 U/L (38-126); Anion Gap 7.6 mEq/L (5-15); Aspartate Amino Transferase 18 U/L (17-59); Bilirubin,Total 0.2 mg/dl (0.2-1.3); Blood Urea Nitrogen 16 mg/dl (9-20); Calcium 8.6 mg/dl (8.4-10.2); Carbon Dioxide 31 mmol/L (22.0-30.0); Chloride 101 mmol/L (98-107); Estimated Glomerular Filt Rate 105 ml/min (>60); GFR (African American) 127 ML/MIN (>60); Globulin 2.5 g/dL (1.3-3.2); Glucose 93 mg/dl (74-100); Potassium 4.6 mmoL/L (3.5-5.1); Sodium 135 mmol/L (136-145)
== END ==
PROVIDERS: PCP Emergency Medicine; Visit Provider Emergency Medicine
DX: E87.1 Hypo-osmolality and hyponatremia (principal)
CPT/HCPCS: 36415; 80053; 85025

== ENCOUNTER → 2021-11-08 13:35 | Outpatient (CLI) | payer BC, SELFPAY ==
[2021-11-08 14:17] LABS: Anion Gap 8.7 mEq/L (5-15); Blood Urea Nitrogen 16 mg/dl (9-20); Calcium 8.4 mg/dl (8.4-10.2); Carbon Dioxide 33 mmol/L (22.0-30.0); Chloride 96 mmol/L (98-107); Estimated Glomerular Filt Rate 92 ml/min (>60); GFR (African American) 111 ML/MIN (>60); Glucose 139 mg/dl (74-100); Potassium 3.7 mmoL/L (3.5-5.1); Sodium 134 mmol/L (136-145)
[2021-11-08 14:27] LABS: NT Pro Brain Natriuretic Pep. 166 pg/mL (0-125)
== END ==
PROVIDERS: PCP Emergency Medicine; Visit Provider Internal Medicine Cardiovascular Disease
DX: R06.02 Shortness of breath (principal)
CPT/HCPCS: 36415; 80048; 83880

== ENCOUNTER → 2021-11-10 11:44 | Outpatient (CLI) | payer BC, SELFPAY ==
[2021-11-10 12:19] LABS: Basophils # 0.1 K/mm3 (0-0.2); Basophils % 0.9 % (0.1-2.0); Eosinophils # 0.1 K/mm3 (0.0-0.4); Eosinophils % 1.3 % (0.1-12.0); Hematocrit 32.2 % (42.0-52.0); Hemoglobin 10.1 g/dL (14.1-18.0); Lymphocytes # 1.2 K/mm3 (0.7-4.5); Lymphocytes % 21.4 % (10-50); Mean Corpuscular HGB Conc 31.4 g/dL (31.8-35.4); Mean Corpuscular Hemoglobin 28.4 pg (27.0-31.2); Mean Corpuscular Volume 90.6 fl (80-94); Mean Platelet Volume 7.9 fl (7.4-10.4); Monocytes # 0.3 K/mm3 (0.1-1.0); Monocytes % 5.4 % (1.7-9.3); Neutrophils # 4.1 K/mm3 (1.8-7.8); Platelet Count 259 K/mm3 (142-424); Red Blood Count 3.56 M/mm3 (4.60-6.20); Red Cell Distribution Width 16.1 % (11.5-17.5); White Blood Count 5.8 K/mm3 (4.8-10.8)
[2021-11-10 12:38] LABS: Chloride 97 mmol/L (98-107); Potassium 3.8 mmoL/L (3.5-5.1); Sodium 132 mmol/L (136-145)
[2021-11-10 12:41] LABS: Alanine Aminotransferase 12 U/L (12-78); Albumin Level 3.5 g/dl (3.5-5.0); Albumin/Globulin Ratio 1.3 (1.1-1.8); Alkaline Phosphatase 143 U/L (38-126); Anion Gap 7.8 mEq/L (5-15); Aspartate Amino Transferase 21 U/L (17-59); Bilirubin,Total 0.2 mg/dl (0.2-1.3); Blood Urea Nitrogen 14 mg/dl (9-20); Calcium 8.5 mg/dl (8.4-10.2); Carbon Dioxide 31 mmol/L (22.0-30.0); Estimated Glomerular Filt Rate 105 ml/min (>60); GFR (African American) 127 ML/MIN (>60); Globulin 2.8 g/dL (1.3-3.2); Glucose 119 mg/dl (74-100); Iron 25 ug/dL (49-181); Total Protein,Serum 6.3 g/dl (6.3-8.2)
[2021-11-10 12:51] LABS: Total Iron Binding Capacity 317 ug/dL (261-462)
[2021-11-10 13:17] LABS: Ferritin 48.1 ng/ml (17.9-464)
== END ==
PROVIDERS: PCP Emergency Medicine; Visit Provider Internal Medicine Medical Oncology
DX: R59.0 Localized enlarged lymph nodes (principal)
CPT/HCPCS: 36415; 80053; 82728; 83540; 83550; 85025

== ENCOUNTER → 2021-11-15 09:53 | Outpatient (CLI) | payer BC, SELFPAY ==
--- NOTE | 2021-11-15 10:05 | CT_ITS ---
FINAL REPORT TECHNIQUE: Axial images through the chest was performed with and without contrast. Sagittal coronal reformatted images were obtained and reviewed. This study was performed with techniques to keep radiation doses as low as reasonably achievable (ALARA). Individualized dose reduction techniques using automated exposure control or adjustment of mA and/or kV according to the patient's size were employed. CLINICAL HISTORY: LYMPHADENOPATHY COMPARISON: 07/25/2021 FINDINGS: Precarinal node measures 15 mm, stable from previous. There is no evidence of axillary mass or adenopathy. Note is made of mild gynecomastia, stable. There is no pleural or pericardial effusion. The heart is normal in size. There is a new, 6 mm ground-glass nodule in the superior segment of the left lower lobe. There is a less than 5 mm nodule in the lateral left lower lobe, stable. There is a calcified granuloma in the lingula. There are subacute right 9th and 10th lateral rib fractures. IMPRESSION: Stable precarinal adenopathy. New ground-glass nodule in the left lower lobe, favor inflammatory but this could be further evaluated with follow-up CT in 6 months. Reviewed, Interpreted and Dictated by Sabino Scott III, MD Transcribed by Toshia Pepe Authenticated and . [facility]
--- NOTE | 2021-11-15 10:05 | CT_ITS ---
FINAL REPORT TECHNIQUE: Axial CT images of the abdomen and pelvis were obtained before and after the administration of IV contrast. Oral contrast was administered.This study was performed with techniques to keep radiation doses as low as reasonably achievable (ALARA). Individualized dose reduction techniques using automated exposure control or adjustment of mA and/or kV according to the patient''s size were employed. CLINICAL HISTORY: LYMPHADENOPATHY COMPARISON: 07/25/2021 FINDINGS: Abdomen: The heart is normal in size. Stable liver dome mass measures 15 mm, previously measured 16 mm. This is of uncertain etiology but could represent a hemangioma. There is stable splenomegaly measuring 15 cm. There is a small left adrenal nodule, stable. The pancreas has an unremarkable appearance. The kidneys enhance normally. The aorta is normal in caliber. There are multiple mildly enlarged retroperitoneal nodes. Precaval node measures 16 mm, stable. There are multiple enlarged inguinal nodes which are visually stable. There is possible interval postoperative change in the left inguinal region versus inflammation. Precontrast images demonstrate no evidence of nephrolithiasis. Pelvis: The appendix is not well visualized. The urinary bladder is unremarkable. No inflammatory process is seen. There is no evidence of bowel obstruction. IMPRESSION: Stable adenopathy, worst in the inguinal region, may be neoplastic or reactive. Stable mass in the liver dome. Stable splenomegaly. Reviewed, Interpreted and Dictated by Sabino Scott III, MD Transcribed by Toshia Pepe Authenticated and . [facility]
== END ==
PROVIDERS: PCP Emergency Medicine; Visit Provider Internal Medicine Medical Oncology
DX: R59.0 Localized enlarged lymph nodes (principal)
CPT/HCPCS: 71270; 74178; Q9967

== ENCOUNTER 2021-11-23 11:13 | Outpatient (CLI) | payer BC, SELFPAY ==
[2021-11-23 11:51] VITALS: BP 112/59; PULSE 80; RESP 18; TEMP 36.4; O2SAT 97
[2021-11-23 12:31] VITALS: BP 105/48; PULSE 78; RESP 18; O2SAT 98
== END 2021-11-23 12:35 | disposition home or self-care (01) ==
LOC: INF 11:14
PROVIDERS: PCP Emergency Medicine; Visit Provider Internal Medicine Medical Oncology
DX: D50.8 Other iron deficiency anemias (principal); Z45.2 Encounter for adjustment and management of vascular access device
CPT/HCPCS: 96365; J1439

== ENCOUNTER → 2021-11-29 11:49 | Outpatient (CLI) | payer BC, SELFPAY ==
[2021-11-29 12:23] LABS: Basophils % 0.6 % (0.1-2.0); Eosinophils # 0.1 K/mm3 (0.0-0.4); Eosinophils % 1.5 % (0.1-12.0); Hematocrit 32.3 % (42.0-52.0); Hemoglobin 10.2 g/dL (14.1-18.0); Lymphocytes # 1.3 K/mm3 (0.7-4.5); Lymphocytes % 28.1 % (10-50); Mean Corpuscular HGB Conc 31.6 g/dL (31.8-35.4); Mean Corpuscular Volume 91.6 fl (80-94); Mean Platelet Volume 8.6 fl (7.4-10.4); Monocytes # 0.3 K/mm3 (0.1-1.0); Monocytes % 6.1 % (1.7-9.3); Neutrophils # 2.9 K/mm3 (1.8-7.8); Neutrophils % 63.7 % (37.0-80.0); Platelet Count 247 K/mm3 (142-424); Red Blood Count 3.53 M/mm3 (4.60-6.20); Red Cell Distribution Width 17.9 % (11.5-17.5); White Blood Count 4.5 K/mm3 (4.8-10.8)
== END ==
PROVIDERS: PCP Emergency Medicine; Visit Provider Emergency Medicine
DX: D64.9 Anemia, unspecified (principal)
CPT/HCPCS: 36415; 85025

== ENCOUNTER 2021-11-30 11:11 | Outpatient (CLI) | payer BC, SELFPAY ==
[2021-11-30 11:40] VITALS: BP 93/64; PULSE 70; RESP 18; O2SAT 98
[2021-11-30 12:10] VITALS: BP 101/40; PULSE 65; RESP 16
== END 2021-11-30 12:25 | disposition home or self-care (01) ==
LOC: INF 11:12
PROVIDERS: PCP Emergency Medicine; Visit Provider Internal Medicine Medical Oncology
DX: D50.8 Other iron deficiency anemias (principal)
CPT/HCPCS: 96365; J1439

== ENCOUNTER → 2021-12-01 16:58 | Outpatient (CLI) | payer BC, SELFPAY ==
[2021-12-01 19:26] LABS: Basophils % 0.7 % (0.1-2.0); Eosinophils # 0.1 K/mm3 (0.0-0.4); Eosinophils % 1.4 % (0.1-12.0); Hematocrit 32.6 % (42.0-52.0); Hemoglobin 10.3 g/dL (14.1-18.0); Lymphocytes # 1.2 K/mm3 (0.7-4.5); Lymphocytes % 21.2 % (10-50); Mean Corpuscular HGB Conc 31.6 g/dL (31.8-35.4); Mean Corpuscular Hemoglobin 29.5 pg (27.0-31.2); Mean Corpuscular Volume 93.4 fl (80-94); Mean Platelet Volume 7.6 fl (7.4-10.4); Monocytes # 0.3 K/mm3 (0.1-1.0); Monocytes % 4.7 % (1.7-9.3); Platelet Count 256 K/mm3 (142-424); Red Blood Count 3.49 M/mm3 (4.60-6.20); Red Cell Distribution Width 17.9 % (11.5-17.5); White Blood Count 5.6 K/mm3 (4.8-10.8)
[2021-12-01 19:59] LABS: Alanine Aminotransferase 12 U/L (12-78); Albumin Level 3.6 g/dl (3.5-5.0); Albumin/Globulin Ratio 1.3 (1.1-1.8); Alkaline Phosphatase 148 U/L (38-126); Anion Gap 9.7 mEq/L (5-15); Aspartate Amino Transferase 22 U/L (17-59); Bilirubin,Total 0.2 mg/dl (0.2-1.3); Blood Urea Nitrogen 9 mg/dl (9-20); Carbon Dioxide 36 mmol/L (22.0-30.0); Chloride 89 mmol/L (98-107); Estimated Glomerular Filt Rate 81 ml/min (>60); GFR (African American) 98 ML/MIN (>60); Globulin 2.8 g/dL (1.3-3.2); Glucose 102 mg/dl (74-100); Sodium 132 mmol/L (136-145); Total Protein,Serum 6.4 g/dl (6.3-8.2)
[2021-12-01 20:04] LABS: C-Reactive Protein 42.5 mg/L (0-4)
[2021-12-01 20:37] LABS: Potassium 2.7 mmoL/L (3.5-5.1)
[2021-12-01 20:44] LABS: Erythrocyte Sedimentation Rate 67 mm/hr (0-15)
== END ==
PROVIDERS: PCP Emergency Medicine; Visit Provider Nurse Practitioner Family
DX: Z51.89 Encounter for other specified aftercare (principal); S91.301D Unspecified open wound, right foot, subsequent encounter; S91.302D Unspecified open wound, left foot, subsequent encounter
CPT/HCPCS: 36415; 80053; 85025; 85651; 86140; 87070; 87077; 87186; 87205

== ENCOUNTER 2022-01-10 16:00 | Outpatient (RCR) | payer BC, SELFPAY ==
--- NOTE | 2021-12-14 11:22 | HMH.PTOPWND ---
Rehab Outpt Wound Evaluation Rehab OP Wound Evaluation Start: 12/14/21 11:10 Freq: Status: Active Protocol: Document 12/14/21 11:13 MARCO (Rec: 12/14/21 11:22 PHORMAYTE [id number]) E-signed By Wilmer Pascual PT Subjective/History History History Pt is 46 yowm who presents with c/o B ankle/foot wounds x ~ 1 mo this episode. He is well known to this clinic with hx of chronic B ankle/foot wounds that tend to worsen intermittently. He presents this date with considerable hyperkeratosis to B feet and wounds to B ankles. He has extensive medical hx of PAD, CAD, CHF, HTN, HL, MRSA, FL. 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 Subjective Subjective Pt reports mild adarsh-wound tenderness this date, 04/12. Wound Eval Wound Right Medial Ankle Wound Type PAD vs CHF Is This a Chronic Wound Yes Wound Length (cm) 4.3 Wound Width (cm) 3.6 Wound Depth (cm) 0 Wound Bed Appearance [place],Yellow Wound Margins Description Indistinct Surrounding Tissue Appearance Purple Edema Type Non-Pitting Edema Degree 1+ Query Text:1+ Trace, Barely Detectable, Rebound 15-30 seconds 2+ Moderate, Slight Indentation, Rebound 10-20 seconds 3+ Deep, Deeper Indentation, Rebound > 30 seconds 4+ Very Deep, Rebound > 60 seconds Drainage Description Serous Drainage Amount Small Wound Topical Solution/Irrigant Saline Irrigant Primary Dressing Composite Comment optifoam gentle border Wound Secondary Dressing Type Gauze Roll/Wrap,Adhering Gauze Roll Comment cyndi gresham Left Lateral Ankle Wound Type PAD vs CHF Is This a Chronic Wound Yes Wound Length (cm) 1.6 Wound Width (cm) 2.7 Wound Depth (cm) 0 Wound Bed Appearance Beefy Red Wound Margins Description Well Defined Surrounding Tissue Appearance Purple Edema Type Non-Pitting Edema Degree 1+ Query Text:1+ Trace, Barely Detectable, Rebound 15
== END 2022-01-10 16:05 | disposition home or self-care (01) ==
LOC: PT 16:00
PROVIDERS: PCP Emergency Medicine; Visit Provider Podiatrist
DX: M25.572 Pain in left ankle and joints of left foot; M25.571 Pain in right ankle and joints of right foot; E11.621 Type 2 diabetes mellitus with foot ulcer; L03.116 Cellulitis of left lower limb; L03.115 Cellulitis of right lower limb
CPT/HCPCS: 97163; 97597

== ENCOUNTER → 2022-02-11 10:39 | Outpatient (CLI) | payer BC, SELFPAY ==
[2022-02-11 10:58] LABS: Basophils # 0.1 K/mm3 (0-0.2); Basophils % 1.4 % (0.1-2.0); Eosinophils # 0.1 K/mm3 (0.0-0.4); Eosinophils % 2.1 % (0.1-12.0); Hematocrit 34.4 % (42.0-52.0); Hemoglobin 10.9 g/dL (14.1-18.0); Lymphocytes # 1.4 K/mm3 (0.7-4.5); Lymphocytes % 25.1 % (10-50); Mean Corpuscular HGB Conc 31.7 g/dL (31.8-35.4); Mean Corpuscular Hemoglobin 34.7 pg (27.0-31.2); Mean Corpuscular Volume 109.5 fl (80-94); Mean Platelet Volume 8.7 fl (7.4-10.4); Monocytes # 0.2 K/mm3 (0.1-1.0); Monocytes % 4.4 % (1.7-9.3); Neutrophils # 3.7 K/mm3 (1.8-7.8); Neutrophils % 67.1 % (37.0-80.0); Platelet Count 198 K/mm3 (142-424); Red Blood Count 3.15 M/mm3 (4.60-6.20); Red Cell Distribution Width 17.5 % (11.5-17.5); White Blood Count 5.5 K/mm3 (4.8-10.8)
[2022-02-11 11:21] LABS: Alanine Aminotransferase 11 U/L (12-78); Albumin Level 3.9 g/dl (3.5-5.0); Albumin/Globulin Ratio 1.5 (1.1-1.8); Alkaline Phosphatase 170 U/L (38-126); Anion Gap 15.3 mEq/L (5-15); Aspartate Amino Transferase 19 U/L (17-59); Bilirubin,Total 0.4 mg/dl (0.2-1.3); Blood Urea Nitrogen 19 mg/dl (9-20); Calcium 8.8 mg/dl (8.4-10.2); Carbon Dioxide 29 mmol/L (22.0-30.0); Chloride 98 mmol/L (98-107); Estimated Glomerular Filt Rate 105 ml/min (>60); GFR (African American) 127 ML/MIN (>60); Globulin 2.6 g/dL (1.3-3.2); Glucose 103 mg/dl (74-100); Potassium 4.3 mmoL/L (3.5-5.1); Sodium 138 mmol/L (136-145); Total Protein,Serum 6.5 g/dl (6.3-8.2)
[2022-02-11 11:25] LABS: Iron 43 ug/dL (49-181)
[2022-02-11 11:30] LABS: Total Iron Binding Capacity 308 ug/dL (261-462)
[2022-02-11 12:02] LABS: Ferritin 58.1 ng/ml (17.9-464)
== END ==
PROVIDERS: PCP Emergency Medicine; Visit Provider Internal Medicine Medical Oncology
DX: R59.0 Localized enlarged lymph nodes (principal)
CPT/HCPCS: 36415; 80053; 82728; 83540; 83550; 85025

== ENCOUNTER → 2022-02-13 07:50 | Outpatient (CLI) | payer BC, SELFPAY ==
--- NOTE | 2022-02-13 07:53 | CT_ITS ---
FINAL REPORT TECHNIQUE: After the administration of intravenous contrast, axial images through the chest were performed by computed tomography. This study was performed with techniques to keep radiation doses as low as reasonably achievable, (ALARA). Individualized dose reduction techniques using automated exposure control or adjustment of mA and/or kV according to the patient's size were employed. CLINICAL HISTORY: ANEMIA,IRON DEF COMPARISON: November 15, 2021 FINDINGS: CT CHEST W/CONTRAST There is no axillary adenopathy. There is no hilar or mediastinal adenopathy. The heart size is normal. The mediastinal vasculature is well opacified. There is a calcified subcarinal lymph node. There is bilateral moderate gynecomastia which is similar to the prior exam. There is no pericardial or pleural effusion. Limited images of the upper abdomen are unremarkable. On the lung window images, the previously noted ground-glass nodule in the superior segment of the left lower lobe is no longer identified. The lungs are clear. There are old healed fracture deformities of the right 9th and 10th ribs posteriorly. IMPRESSION: Resolution left lower lobe nodule. Old healed right rib fractures as above. Reviewed, Interpreted and Dictated by Mauricio Gomez MD Transcribed by Nallely Garvin Authenticated and [facility]
--- NOTE | 2022-02-13 07:53 | CT_ITS ---
FINAL REPORT TECHNIQUE: After the administration of oral and intravenous contrast, axial images were obtained through the abdomen and pelvis by computed tomography. The study was performed with techniques to keep radiation dose as low as reasonably achievable, (ALARA). Individual dose reduction techniques using automated exposure control or adjustment of mA and/or kV according to the patient's size were employed. CLINICAL HISTORY: ANEMIA,IRON DEF COMPARISON: 11/15/2021 FINDINGS: Abdomen: The lung bases are clear. There is a small, low-attenuation focus in the superior right hepatic lobe which is unchanged from prior exam, favor cyst. Patient is status post cholecystectomy. The spleen measures 15.9 cm in craniocaudad dimension which is slightly improved from prior exam. The pancreas, adrenals and kidneys appear unremarkable. The aorta is normal in caliber. There is no free fluid. There is a large amount of stool throughout the colon. There is mild retroperitoneal and iliac adenopathy. Pelvis: The appendix is not identified. The urinary bladder is unremarkable. There is no free fluid . There is prominent inguinal adenopathy bilaterally measuring up to 3.5 cm in maximum craniocaudad dimension, similar to prior exam. IMPRESSION: Slight improved splenomegaly. Extensive bilateral inguinal adenopathy, similar to prior exam. Constipation. Reviewed, Interpreted and Dictated by Mauricio Gomez MD Transcribed by Lori Gottlieb Authenticated and [facility]
== END ==
PROVIDERS: PCP Emergency Medicine; Visit Provider Internal Medicine Medical Oncology
DX: C85.90 Non-Hodgkin lymphoma, unspecified, unspecified site (principal); R59.0 Localized enlarged lymph nodes
CPT/HCPCS: 71260; 74177; Q9967

== ENCOUNTER → 2022-04-07 11:28 | Outpatient (CLI) | payer BC, SELFPAY ==
--- NOTE | 2022-04-07 11:32 | XR_ITS ---
FINAL REPORT CLINICAL HISTORY: R Hip Pain FINDINGS: 2 views of the right hip and an AP pelvis were obtained. There is a nondisplaced fracture of the lateral aspect of the right superior pubic ramus. There is mild irregularity of the right inferior pubic ramus worrisome for a nondisplaced fracture. There are mild degenerative changes. There are no soft tissue abnormalities. IMPRESSION: Nondisplaced fracture of the lateral right superior pubic ramus with findings worrisome for nondisplaced fracture of the inferior right pubic ramus. Reviewed, Interpreted and Dictated by Sabino Scott III, MD Transcribed by Julio Colin Authenticated and [facility]
== END ==
PROVIDERS: PCP Nurse Practitioner Family; Visit Provider Nurse Practitioner Family
DX: M25.551 Pain in right hip (principal)
CPT/HCPCS: 73502

== ENCOUNTER → 2022-05-02 14:20 | Outpatient (CLI) | payer BC, SELFPAY ==
[2022-05-02 15:06] LABS: Basophils # 0.1 K/mm3 (0-0.2); Basophils % 1.6 % (0.1-2.0); Eosinophils # 0.1 K/mm3 (0.0-0.4); Eosinophils % 1.5 % (0.1-12.0); Hematocrit 34.5 % (42.0-52.0); Hemoglobin 11.6 g/dL (14.1-18.0); Lymphocytes # 1.8 K/mm3 (0.7-4.5); Lymphocytes % 31.6 % (10-50); Mean Corpuscular HGB Conc 33.5 g/dL (31.8-35.4); Mean Corpuscular Volume 98.4 fl (80-94); Mean Platelet Volume 7.9 fl (7.4-10.4); Monocytes # 0.2 K/mm3 (0.1-1.0); Monocytes % 4.1 % (1.7-9.3); Neutrophils # 3.5 K/mm3 (1.8-7.8); Neutrophils % 61.3 % (37.0-80.0); Platelet Count 225 K/mm3 (142-424); Red Cell Distribution Width 15.1 % (11.5-17.5); White Blood Count 5.7 K/mm3 (4.8-10.8)
[2022-05-02 15:29] LABS: Alanine Aminotransferase 20 U/L (12-78); Albumin Level 3.6 g/dl (3.5-5.0); Albumin/Globulin Ratio 1.6 (1.1-1.8); Alkaline Phosphatase 113 U/L (38-126); Anion Gap 7.5 mEq/L (5-15); Aspartate Amino Transferase 26 U/L (17-59); Bilirubin,Total 0.4 mg/dl (0.2-1.3); Blood Urea Nitrogen 17 mg/dl (9-20); Calcium 8.3 mg/dl (8.4-10.2); Carbon Dioxide 32 mmol/L (22.0-30.0); Chloride 97 mmol/L (98-107); Estimated Glomerular Filt Rate 123 ml/min (>60); GFR (African American) 148 ML/MIN (>60); Globulin 2.3 g/dL (1.3-3.2); Glucose 75 mg/dl (74-100); Potassium 3.5 mmoL/L (3.5-5.1); Sodium 133 mmol/L (136-145); Total Protein,Serum 5.9 g/dl (6.3-8.2)
[2022-05-02 16:36] LABS: Vitamin B12 226 pg/mL (239-931)
[2022-05-02 16:46] LABS: Folate 3.65 ng/mL
[2022-05-02 16:54] LABS: Iron 51 ug/dL (49-181)
[2022-05-02 17:03] LABS: Total Iron Binding Capacity 251 ug/dL (261-462)
== END ==
PROVIDERS: PCP Emergency Medicine; Visit Provider Internal Medicine Medical Oncology
DX: D50.9 Iron deficiency anemia, unspecified (principal)
CPT/HCPCS: 36415; 80053; 82607; 82728; 82746; 83540; 83550; 85025

== ENCOUNTER → 2022-05-12 10:19 | Outpatient (CLI) | payer BC, SELFPAY ==
--- NOTE | 2022-05-12 10:26 | CT_ITS ---
FINAL REPORT CLINICAL HISTORY: IRON DEF. ANEMIA COMPARISON: 02/13/2022 FINDINGS: CT CHEST WITH CONTRAST Axial CT images of the chest were obtained with contrast. Coronal reformatted images were also obtained. This study was performed with techniques to keep radiation doses as low as reasonably achievable, (ALARA). Individualized dose reduction techniques using automated exposure control or adjustment of mA and/or KV according to the patient's size were employed. There is no evidence of mediastinal or hilar mass or adenopathy. There is stable bilateral gynecomastia. No axillary mass or adenopathy is identified. On the lung window images there is a calcified granuloma in the lingula. No new mass or nodule is identified. There are several right chronic rib fractures. No localized pulmonary inflammatory process is identified. IMPRESSION: No mass or localized inflammatory process. No new mass or nodule identified. Reviewed, Interpreted and Dictated by Sabino Scott III, MD Transcribed by Nallely Garvin Authenticated and [facility]
--- NOTE | 2022-05-12 10:26 | CT_ITS ---
FINAL REPORT CLINICAL HISTORY: IRON DEF. ANEMIA COMPARISON: 02/13/2022 FINDINGS: CT OF THE ABDOMEN AND PELVIS WITH CONTRAST Axial CT images of the abdomen and pelvis were obtained after the administration of oral contrast. Coronal reformatted images were also obtained and reviewed.This study was performed with techniques to keep radiation doses as low as reasonably achievable (ALARA). Individualized dose reduction techniques using automated exposure control or adjustment of mA and/or kV according to the patient's size were employed. Abdomen: The heart is normal in size. There is a less than 1 cm low-attenuation mass in the right liver dome which is stable. There is a new 6 mm low-attenuation mass in the lateral right liver dome which is worrisome for neoplasm. There are postoperative changes from cholecystectomy. The spleen measures 14.5 cm which is similar to the prior exam. There is a stable left adrenal nodule, favor adenoma. The pancreas has an unremarkable appearance. The kidneys are normal, without evidence of mass or hydronephrosis. The aorta is normal in caliber. There is no free fluid or adenopathy. No mass or abnormal fluid collection is seen. There are multiple mildly enlarged retroperitoneal nodes which are stable. Mild vascular calcifications. Pelvis: The appendix is not well-visualized. There is a moderate-large amount of retained stool. There are multiple enlarged inguinal lymph nodes again seen. A right inguinal node measures 23 mm and was 23 mm. Other nodes are similar. While these may be reactive they are worrisome for a neoplasm. The urinary bladder is unremarkable. No inflammatory process is seen. There is no evidence of mass or adenopathy. There is no evidence of bowel obstruction. There are new from the prior but subacute appearing fractures of the anterior column of the right acetabulum, the right inferior pubic ramus in the greater trochanter of the left proximal femur. There is fluid in the left gluteus gene muscle which may represent intramuscular hematoma. There is also edema or hemorrhage in the right abductor musculature. IMPRESSION: Stable nonspecific splenomegaly. New small right liver dome mass worrisome for neoplasm. Stable inguinal adenopathy. New from prior but subacute appearing fractures of the right pelvis and left greater trochanter. Reviewed, Interpreted and Dictated by Sabino Scott III, MD Transcribed by Nallely Garvin Authenticated and . [facility]
== END ==
PROVIDERS: PCP Emergency Medicine; Visit Provider Internal Medicine Medical Oncology
DX: D50.9 Iron deficiency anemia, unspecified (principal)
CPT/HCPCS: 71260; 74177; Q9967

== ENCOUNTER → 2022-08-08 13:00 | Outpatient (CLI) | payer BC, SELFPAY ==
[2022-08-08 13:44] LABS: Basophils % 0.5 % (0.1-2.0); Eosinophils # 0.1 K/mm3 (0.0-0.4); Eosinophils % 1.9 % (0.1-12.0); Hematocrit 35.5 % (42.0-52.0); Hemoglobin 12.1 g/dL (14.1-18.0); Lymphocytes # 1.6 K/mm3 (0.7-4.5); Lymphocytes % 29.5 % (10-50); Mean Corpuscular HGB Conc 34.1 g/dL (31.8-35.4); Mean Corpuscular Hemoglobin 32.9 pg (27.0-31.2); Mean Corpuscular Volume 96.7 fl (80-94); Mean Platelet Volume 7.4 fl (7.4-10.4); Monocytes # 0.2 K/mm3 (0.1-1.0); Monocytes % 4.4 % (1.7-9.3); Neutrophils # 3.4 K/mm3 (1.8-7.8); Neutrophils % 63.7 % (37.0-80.0); Platelet Count 171 K/mm3 (142-424); Red Blood Count 3.67 M/mm3 (4.60-6.20); Red Cell Distribution Width 14.1 % (11.5-17.5); White Blood Count 5.4 K/mm3 (4.8-10.8)
[2022-08-08 14:03] LABS: Chloride 94 mmol/L (98-107); Potassium 4.2 mmoL/L (3.5-5.1); Sodium 133 mmol/L (136-145)
[2022-08-08 14:06] LABS: Alanine Aminotransferase 15 U/L (12-78); Albumin Level 3.8 g/dl (3.5-5.0); Albumin/Globulin Ratio 1.7 (1.1-1.8); Alkaline Phosphatase 131 U/L (38-126); Anion Gap 13.2 mEq/L (5-15); Aspartate Amino Transferase 19 U/L (17-59); Bilirubin,Total 0.3 mg/dl (0.2-1.3); Blood Urea Nitrogen 18 mg/dl (9-20); Calcium 8.2 mg/dl (8.4-10.2); Carbon Dioxide 30 mmol/L (22.0-30.0); Estimated Glomerular Filt Rate 105 ml/min (>60); GFR (African American) 127 ML/MIN (>60); Globulin 2.2 g/dL (1.3-3.2); Glucose 108 mg/dl (74-100); Iron 43 ug/dL (49-181)
[2022-08-08 14:17] LABS: Total Iron Binding Capacity 337 ug/dL (261-462)
[2022-08-08 14:37] LABS: Thyroid Stimulating Hormone 3.65 uIU/mL (0.465-4.68)
[2022-08-08 14:42] LABS: Ferritin 52.4 ng/ml (17.9-464)
[2022-08-10 09:44] LABS: Homocyst(e)ine 16.7 umol/L (0.0-14.5)
[2022-08-18 20:59] LABS: Methylmalonic Acid 993 nmol/L (0-378)
== END ==
PROVIDERS: Internal Medicine Medical Oncology; PCP Emergency Medicine; Visit Provider Nurse Practitioner Family
DX: R09.02 Hypoxemia (principal); H53.8 Other visual disturbances; E53.8 Deficiency of other specified B group vitamins; R41.3 Other amnesia; Z72.0 Tobacco use; D50.9 Iron deficiency anemia, unspecified; Z79.899 Other long term (current) drug therapy
CPT/HCPCS: 36415; 80053; 82728; 83090; 83540; 83550; 83921; 84443; 85025; 86593

== ENCOUNTER → 2022-08-21 13:32 | Outpatient (CLI) | payer BC, SELFPAY ==
[2022-09-05 14:28] LABS: Treponema pallidum Antibodies NON REACTIVE
== END ==
PROVIDERS: PCP Emergency Medicine; Visit Provider Nurse Practitioner Family
DX: A53.0 Latent syphilis, unspecified as early or late (principal)
CPT/HCPCS: 36415; 86780

== ENCOUNTER → 2022-08-22 12:52 | Outpatient (CLI) | payer BC, SELFPAY ==
--- NOTE | 2022-08-22 12:52 | CT_ITS ---
FINAL REPORT TECHNIQUE: Axial images of the orbits was performed by computed tomography. Sagittal and coronal reformatted images were obtained and reviewed. This study was performed with techniques to keep radiation doses as low as reasonably achievable (ALARA). Individualized dose reduction techniques using automated exposure control or adjustment of mA and/or kV according to the patient's size were employed. CLINICAL HISTORY: vision changes, pale optic nerve FINDINGS: No fracture is identified. No bony mass is seen. The globes are intact. The optic nerves are unremarkable. The extra ocular muscles are normal. No orbital mass or fluid collection is identified. IMPRESSION: No acute process. Reviewed, Interpreted and Dictated by Sabino Scott III, MD Transcribed by Toshia Pepe Authenticated and [facility]
== END ==
PROVIDERS: PCP Emergency Medicine; Visit Provider Nurse Practitioner Family
DX: H53.8 Other visual disturbances (principal); E53.8 Deficiency of other specified B group vitamins; R09.02 Hypoxemia; R41.3 Other amnesia; Z72.0 Tobacco use; H05.53 Retained (old) foreign body following penetrating wound of bilateral orbits
CPT/HCPCS: 70480

== ENCOUNTER → 2022-08-29 09:20 | Outpatient (CLI) | payer BC, SELFPAY ==
--- NOTE | 2022-08-29 09:24 | CT_ITS ---
FINAL REPORT TECHNIQUE: After the administration of intravenous contrast, axial images through the chest were performed by computed tomography.This study was performed with techniques to keep radiation doses as low as reasonably achievable, (ALARA). Individualized dose reduction techniques using automated exposure control or adjustment of mA and/or kV according to the patient''s size were employed. CLINICAL HISTORY: ANEMIA,IRON DEFICIENCY COMPARISON: 05/12/2022 FINDINGS: There are multiple small and borderline size mediastinal nodes. There are several borderline right axillary nodes which are stable. There is mild gynecomastia which is stable. The heart size is normal. There is no pericardial or pleural effusion. No suspicious infiltrate or nodule identified. There is a calcified granuloma in the lingula. There are several chronic right posterolateral rib fractures. IMPRESSION: Borderline size lymph nodes. Reviewed, Interpreted and Dictated by Sabino Scott III, MD Transcribed by Toshia Pepe Authenticated and [facility]
--- NOTE | 2022-08-29 09:24 | CT_ITS ---
FINAL REPORT TECHNIQUE: After the administration of oral and intravenous contrast, axial images were obtained through the abdomen and pelvis by computed tomography. The study was performed with techniques to keep radiation dose as low as reasonably achievable, (ALARA). Individual dose reduction techniques using automated exposure control or adjustment of mA and/or kV according to the patient's size were employed. CLINICAL HISTORY: ANEMIA,IRON DEFICIENCY COMPARISON: 05/12/2022 FINDINGS: Abdomen: There is a stable, 8 mm right liver dome mass which may represent a small cyst. The other small mass in the lateral right liver dome is not well seen. There is splenomegaly measuring 14.8 cm, stable. The patient is status post cholecystectomy. There is mild vascular calcification. The adrenals are normal. The pancreas is unremarkable. The kidneys enhance appropriately. The aorta is normal in caliber. There is no free fluid. Pelvis: The appendix is not identified. There is a large amount of stool throughout the colon. Again identified are multiple enlarged bilateral inguinal nodes. Anterior right inguinal node measures 23 mm, previously measured 23 mm. Left inguinal node measures 18 mm, previously measured 14 mm. Several other left inguinal nodes are slightly larger. There are stable, subacute to chronic right pelvic fractures. The urinary bladder is unremarkable. There is no free fluid. IMPRESSION: Small mass in the lateral right liver dome is not well seen. Stable splenomegaly. Inguinal adenopathy, slightly worse on the left. Reviewed, Interpreted and Dictated by Sabino Scott III, MD Transcribed by Toshia Pepe Authenticated and [facility]
== END ==
PROVIDERS: PCP Emergency Medicine; Visit Provider Internal Medicine Medical Oncology
DX: D50.9 Iron deficiency anemia, unspecified (principal)
CPT/HCPCS: 71260; 74177; 94762; Q9967

== ENCOUNTER 2022-09-13 10:57 | Outpatient (CLI) | payer BC, SELFPAY ==
[2022-09-13 11:25] VITALS: BP 109/58; PULSE 84; RESP 18; TEMP 36.7; O2SAT 98
[2022-09-13 12:05] VITALS: BP 110/52; PULSE 82; RESP 18; O2SAT 98
[2022-09-15 14:22] LABS: Antiparietal Cell Antibody 1.5 Units (0.0-20.0)
[2022-09-17 03:49] LABS: Intrinsic Factor Abs, Serum 1.1 AU/mL (0.0-1.1)
== END 2022-09-13 12:16 | disposition home or self-care (01) ==
LOC: INF 10:58
PROVIDERS: Nurse Practitioner Family; PCP Emergency Medicine; Visit Provider Internal Medicine Medical Oncology
DX: E61.1 Iron deficiency (principal); E53.8 Deficiency of other specified B group vitamins
CPT/HCPCS: 83516; 86340; 96365; J1439

== ENCOUNTER 2022-09-21 11:12 | Outpatient (CLI) | payer BC, SELFPAY ==
[2022-09-21 11:34] VITALS: BP 113/59; PULSE 75; RESP 18; TEMP 37.1; O2SAT 100
[2022-09-21 12:15] VITALS: BP 126/69; PULSE 73; RESP 18; O2SAT 98
[2022-09-21 12:18] VITALS: BP 126/69; PULSE 73; RESP 18; O2SAT 98
== END 2022-09-21 12:21 | disposition home or self-care (01) ==
LOC: INF 11:13
PROVIDERS: PCP Emergency Medicine; Visit Provider Internal Medicine Medical Oncology
DX: D50.9 Iron deficiency anemia, unspecified (principal)
CPT/HCPCS: 96365; J1439

== ENCOUNTER → 2022-10-24 13:53 | Outpatient (CLI) | payer BC, SELFPAY | PROVIDERS: PCP Emergency Medicine; Visit Provider Nurse Practitioner Family | DX: G47.33 Obstructive sleep apnea (adult) (pediatric) (principal); R06.83 Snoring | CPT/HCPCS: 95806 ==

== ENCOUNTER → 2022-11-30 16:12 | Outpatient (CLI) | payer BC, SELFPAY | PROVIDERS: PCP Emergency Medicine; Visit Provider Physician Assistant | DX: I49.9 Cardiac arrhythmia, unspecified (principal) | CPT/HCPCS: 93225 ==

== ENCOUNTER → 2023-01-05 09:16 | Outpatient (CLI) | payer BC, SELFPAY ==
[2023-01-05 09:58] LABS: Basophils % 0.6 % (0.1-2.0); Eosinophils # 0.1 K/mm3 (0.0-0.4); Eosinophils % 1.4 % (0.1-12.0); Hematocrit 36.8 % (42.0-52.0); Hemoglobin 12.3 g/dL (14.1-18.0); Lymphocytes # 1.4 K/mm3 (0.7-4.5); Lymphocytes % 22.9 % (10-50); Mean Corpuscular HGB Conc 33.3 g/dL (31.8-35.4); Mean Corpuscular Hemoglobin 32.5 pg (27.0-31.2); Mean Corpuscular Volume 97.5 fl (80-94); Mean Platelet Volume 7.6 fl (7.4-10.4); Monocytes # 0.3 K/mm3 (0.1-1.0); Monocytes % 5.1 % (1.7-9.3); Neutrophils # 4.4 K/mm3 (1.8-7.8); Platelet Count 173 K/mm3 (142-424); Red Blood Count 3.78 M/mm3 (4.60-6.20); Red Cell Distribution Width 15.4 % (11.5-17.5); White Blood Count 6.3 K/mm3 (4.8-10.8)
[2023-01-05 11:47] LABS: Iron 120 ug/dL (49-181)
[2023-01-05 11:57] LABS: Total Iron Binding Capacity 313 ug/dL (261-462)
== END ==
PROVIDERS: PCP Emergency Medicine; Visit Provider Internal Medicine Medical Oncology
DX: D50.9 Iron deficiency anemia, unspecified (principal)
CPT/HCPCS: 36415; 82728; 83540; 83550; 85025

== ENCOUNTER → 2023-02-20 14:48 | Outpatient (CLI) | payer BC, SELFPAY ==
[2023-02-20 13:28] LABS: Barbiturates Screen,Urine Negative ng/ml (<200)
[2023-02-20 13:29] LABS: Amphetamine/Metha Screen,Urine Negative ng/ml (<1000); Benzodiazepines Screen,Urine Negative ng/ml (<200)
[2023-02-20 13:30] LABS: Cannabinoid Screen,Urine Negative ng/ml (<50)
[2023-02-20 13:31] LABS: Cocaine Screen,Urine Negative ng/ml (<300); Methadone Screen,Urine Negative ng/ml (<300)
[2023-02-20 13:32] LABS: Opiate Screen,Urine Negative ng/ml (<300)
[2023-02-20 13:33] LABS: Phencyclidine Screen,Urine Negative ng/ml (<25)
== END ==
PROVIDERS: PCP Emergency Medicine; Visit Provider Emergency Medicine
DX: Z79.899 Other long term (current) drug therapy (principal)
CPT/HCPCS: 80305

== ENCOUNTER 2023-04-17 14:40 | Outpatient (CLI) | payer BC, SELFPAY ==
[2023-04-17 15:11] LABS: Basophils % 0.6 % (0.1-2.0); Eosinophils # 0.1 K/mm3 (0.0-0.4); Eosinophils % 2.1 % (0.1-12.0); Hematocrit 40.5 % (42.0-52.0); Hemoglobin 13.7 g/dL (14.1-18.0); Lymphocytes # 1.3 K/mm3 (0.7-4.5); Lymphocytes % 27.7 % (10-50); Mean Corpuscular HGB Conc 33.9 g/dL (31.8-35.4); Mean Corpuscular Hemoglobin 33.9 pg (27.0-31.2); Mean Platelet Volume 8.6 fl (7.4-10.4); Monocytes # 0.2 K/mm3 (0.1-1.0); Monocytes % 4.1 % (1.7-9.3); Neutrophils # 3.1 K/mm3 (1.8-7.8); Neutrophils % 65.6 % (37.0-80.0); Platelet Count 168 K/mm3 (142-424); Red Blood Count 4.05 M/mm3 (4.60-6.20); White Blood Count 4.7 K/mm3 (4.8-10.8)
[2023-04-17 15:51] LABS: Alanine Aminotransferase 13 U/L (12-78); Albumin Level 3.9 g/dl (3.5-5.0); Alkaline Phosphatase 144 U/L (38-126); Aspartate Amino Transferase 20 U/L (17-59); Bilirubin,Direct 0.1 mg/dl (0.0-0.4); Bilirubin,Indirect 0.1 mg/dL (0.0-0.9); Bilirubin,Total 0.2 mg/dl (0.2-1.3); Bilirubin,Unconjugated 0.1 mg/dL (0.0-1.1); Blood Urea Nitrogen 11 mg/dl (9-20); Calcium 7.9 mg/dl (8.4-10.2); Carbon Dioxide 30 mmol/L (22.0-30.0); Chloride 101 mmol/L (98-107); Cholesterol 99 mg/dl (140-200); Estimated Glomerular Filt Rate 105 ml/min (>60); GFR (African American) 126 ML/MIN (>60); Glucose 108 mg/dl (74-100); HDL Cholesterol 33 mg/dl (40-60); Magnesium 1.9 mg/dl (1.6-2.3); Sodium 134 mmol/L (136-145); Total Protein,Serum 6.4 g/dl (6.3-8.2); Triglycerides 82 mg/dl (30-150); VLDL Cholesterol 16 mg/dL (0-40)
[2023-04-17 15:54] LABS: Iron 53 ug/dL (49-181)
[2023-04-17 16:03] LABS: Total Iron Binding Capacity 338 ug/dL (261-462)
[2023-04-17 16:08] LABS: Free T4 (Free Thyroxine) 1.07 ng/dl (0.78-2.19)
[2023-04-17 16:22] LABS: Thyroid Stimulating Hormone 2.97 uIU/mL (0.465-4.68)
[2023-04-17 16:30] LABS: Ferritin 83.9 ng/ml (17.9-464)
[2023-04-17 17:04] LABS: Direct LDL Cholesterol 59.42 mg/dL (100-129)
[2023-04-18 08:47] LABS: Intact Parathyroid Hormone 174.1 pg/mL (7.5-53.5)
[2023-04-18 09:42] LABS: Vitamin B12 254 pg/mL (239-931)
[2023-04-18 09:45] LABS: Folate 4.54 ng/mL
== END 2023-04-17 23:59 ==
PROVIDERS: PCP Internal Medicine; Referring Provider Internal Medicine Medical Oncology; Visit Provider Physician Assistant
DX: D50.0 Iron deficiency anemia secondary to blood loss (chronic) (principal); E78.5 Hyperlipidemia, unspecified; I11.0 Hypertensive heart disease with heart failure; I25.10 Atherosclerotic heart disease of native coronary artery without angina pectoris; I27.20 Pulmonary hypertension, unspecified; I50.30 Unspecified diastolic (congestive) heart failure; R06.02 Shortness of breath; R60.0 Localized edema; R79.89 Other specified abnormal findings of blood chemistry; Z95.5 Presence of coronary angioplasty implant and graft; Z72.0 Tobacco use
CPT/HCPCS: 80048; 80061; 80076; 82607; 82728; 82746; 83540; 83550; 83735; 83970; 84439; 84443; 85025

== ENCOUNTER 2023-04-18 10:24 | Outpatient (CLI) | payer BC, SELFPAY | END 2023-04-18 23:59 | LOC: LAB.DROPOF 04-20 10:25 | PROVIDERS: PCP Physician Assistant; Visit Provider Physician Assistant | DX: D53.9 Nutritional anemia, unspecified (principal); E83.51 Hypocalcemia | CPT/HCPCS: 82607; 82746; 83970 ==

== ENCOUNTER 2023-05-16 10:02 | Outpatient (CLI) | payer BC, SELFPAY | END 2023-05-16 23:59 | LOC: RAD 10:03 | PROVIDERS: PCP Internal Medicine; Visit Provider Nurse Practitioner | DX: E21.3 Hyperparathyroidism, unspecified (principal) ==

== ENCOUNTER 2023-10-22 14:55 | Outpatient (CLI) | payer BC, SELFPAY ==
[2023-10-22 15:50] LABS: Basophils % 0.9 % (0.1-2.0); Eosinophils # 0.1 K/mm3 (0.0-0.4); Eosinophils % 1.2 % (0.1-12.0); Hematocrit 36.3 % (42.0-52.0); Hemoglobin 12.2 g/dL (14.1-18.0); Lymphocytes # 1.2 K/mm3 (0.7-4.5); Lymphocytes % 24.2 % (10-50); Mean Corpuscular HGB Conc 33.6 g/dL (31.8-35.4); Mean Corpuscular Hemoglobin 34.4 pg (27.0-31.2); Mean Corpuscular Volume 102.2 fl (80-94); Monocytes # 0.3 K/mm3 (0.1-1.0); Monocytes % 6.3 % (1.7-9.3); Neutrophils # 3.4 K/mm3 (1.8-7.8); Neutrophils % 67.5 % (37.0-80.0); Platelet Count 198 K/mm3 (142-424); Red Blood Count 3.55 M/mm3 (4.60-6.20); Red Cell Distribution Width 15.3 % (11.5-17.5)
[2023-10-22 16:25] LABS: 25-OH Vitamin D, Total 14.8 ng/mL (30-100)
[2023-10-22 21:55] LABS: Alanine Aminotransferase 12 U/L (12-78); Albumin/Globulin Ratio 1.5 (1.1-1.8); Alkaline Phosphatase 163 U/L (38-126); Aspartate Amino Transferase 20 U/L (17-59); Bilirubin,Total 0.4 mg/dl (0.2-1.3); Blood Urea Nitrogen 16 mg/dl (9-20); Calcium 8.8 mg/dl (8.4-10.2); Carbon Dioxide 30 mmol/L (22.0-30.0); Chloride 102 mmol/L (98-107); Chol/HDL Ratio 3.2 (1-3.5); Cholesterol 110 mg/dl (140-200); Estimated Glomerular Filt Rate 91 ml/min (>60); GFR (African American) 110 ML/MIN (>60); Globulin 2.7 g/dL (1.3-3.2); Glucose 103 mg/dl (74-100); HDL Cholesterol 34 mg/dl (40-60); Sodium 137 mmol/L (136-145); Total Protein,Serum 6.7 g/dl (6.3-8.2); Triglycerides 113 mg/dl (30-150); VLDL Cholesterol 23 mg/dL (0-40)
[2023-10-22 22:06] LABS: Direct LDL Cholesterol 60.94 mg/dL (100-129)
[2023-10-22 22:13] LABS: Free T4 (Free Thyroxine) 0.93 ng/dl (0.78-2.19)
[2023-10-22 22:26] LABS: Thyroid Stimulating Hormone 6.26 uIU/mL (0.465-4.68)
[2023-10-22 22:45] LABS: Vitamin B12 247 pg/mL (239-931)
[2023-10-23 13:24] LABS: Folate 3.95 ng/mL
[2023-10-23 13:38] LABS: Iron 90 ug/dL (49-181)
[2023-10-23 13:47] LABS: Total Iron Binding Capacity 346 ug/dL (261-462)
[2023-10-23 14:49] LABS: Intact Parathyroid Hormone 126.3 pg/mL (7.5-53.5)
== END 2023-10-22 23:59 | disposition home or self-care (01) ==
LOC: LAB 14:56
PROVIDERS: PCP Nurse Practitioner Family; Visit Provider Internal Medicine
DX: E03.9 Hypothyroidism, unspecified (principal); E21.3 Hyperparathyroidism, unspecified; D50.9 Iron deficiency anemia, unspecified; E53.8 Deficiency of other specified B group vitamins; R59.1 Generalized enlarged lymph nodes; E87.6 Hypokalemia; E78.2 Mixed hyperlipidemia; I11.9 Hypertensive heart disease without heart failure; R53.83 Other fatigue; K59.00 Constipation, unspecified
CPT/HCPCS: 36415; 80050; 80053; 80061; 82306; 82607; 82746; 83540; 83550; 83970; 84439; 84443; 85025

== ENCOUNTER 2023-10-24 14:33 | Outpatient (CLI) | payer BC, SELFPAY ==
[2023-10-26 12:53] LABS: Testosterone,Total 36 ng/dL (264-916)
[2023-10-29 00:08] LABS: Testosterone,Free 0.4 pg/mL (6.8-21.5)
[2023-11-26 15:06] LABS: PTH Related Peptide < 2.0
== END 2023-10-24 23:59 | disposition home or self-care (01) ==
LOC: LAB 14:34
PROVIDERS: PCP Nurse Practitioner Family; Visit Provider Nurse Practitioner Family
DX: E21.3 Hyperparathyroidism, unspecified (principal)
CPT/HCPCS: 82397; 84402; 84403

== ENCOUNTER 2024-01-02 10:45 | Outpatient (CLI) | payer MEDICARE, BC, SELFPAY ==
[2024-01-02 11:06] LABS: Basophils % 0.7 % (0.1-2.0); Eosinophils # 0.1 K/mm3 (0.0-0.4); Eosinophils % 1.6 % (0.1-12.0); Hematocrit 36.3 % (42.0-52.0); Hemoglobin 11.8 g/dL (14.1-18.0); Lymphocytes % 21.6 % (10-50); Mean Corpuscular HGB Conc 32.5 g/dL (31.8-35.4); Mean Corpuscular Hemoglobin 34.3 pg (27.0-31.2); Mean Corpuscular Volume 105.4 fl (80-94); Mean Platelet Volume 9.2 fl (7.4-10.4); Monocytes # 0.3 K/mm3 (0.1-1.0); Monocytes % 5.3 % (1.7-9.3); Neutrophils # 3.4 K/mm3 (1.8-7.8); Neutrophils % 70.8 % (37.0-80.0); Platelet Count 207 K/mm3 (142-424); Red Blood Count 3.45 M/mm3 (4.60-6.20); Red Cell Distribution Width 14.9 % (11.5-17.5); White Blood Count 4.8 K/mm3 (4.8-10.8)
[2024-01-02 11:29] LABS: Alanine Aminotransferase 12 U/L (12-78); Albumin Level 4.1 g/dl (3.5-5.0); Albumin/Globulin Ratio 1.6 (1.1-1.8); Alkaline Phosphatase 119 U/L (38-126); Anion Gap 5.6 mEq/L (5-15); Aspartate Amino Transferase 19 U/L (17-59); Bilirubin,Total 0.5 mg/dl (0.2-1.3); Blood Urea Nitrogen 16 mg/dl (9-20); Calcium 8.7 mg/dl (8.4-10.2); Carbon Dioxide 32 mmol/L (22.0-30.0); Chloride 101 mmol/L (98-107); Chol/HDL Ratio 3.5 (1-3.5); Cholesterol 105 mg/dl (140-200); Estimated Glomerular Filt Rate 91 ml/min (>60); GFR (African American) 110 ML/MIN (>60); Globulin 2.6 g/dL (1.3-3.2); Glucose 106 mg/dl (74-100); HDL Cholesterol 30 mg/dl (40-60); Potassium 4.6 mmoL/L (3.5-5.1); Sodium 134 mmol/L (136-145); Total Protein,Serum 6.7 g/dl (6.3-8.2); Triglycerides 60 mg/dl (30-150); VLDL Cholesterol 12 mg/dL (0-40)
[2024-01-02 11:40] LABS: Direct LDL Cholesterol 65.35 mg/dL (100-129)
[2024-01-02 11:45] LABS: Free T4 (Free Thyroxine) 1.19 ng/dl (0.78-2.19)
[2024-01-02 12:19] LABS: Vitamin B12 268 pg/mL (239-931)
[2024-01-08 07:13] LABS: Free Testosterone (Direct) 0.3 pg/mL (6.8-21.5); Testosterone, Total, LC/MS 38.5 ng/dL (264.0-916.0)
== END 2024-01-02 23:59 | disposition home or self-care (01) ==
LOC: LAB 10:46
PROVIDERS: PCP Nurse Practitioner Family; Visit Provider Nurse Practitioner Family
DX: E03.9 Hypothyroidism, unspecified (principal); D50.8 Other iron deficiency anemias; E53.8 Deficiency of other specified B group vitamins; E87.6 Hypokalemia; D64.9 Anemia, unspecified; L60.3 Nail dystrophy; B35.1 Tinea unguium; E83.51 Hypocalcemia; K59.00 Constipation, unspecified; R53.83 Other fatigue
CPT/HCPCS: 84402; 84403; 36415; 80050; 80053; 80061; 82306; 82607; 84439; 84443; 85025

== ENCOUNTER 2024-02-29 18:12 | Observation (INO) | payer MEDICARE, BC, SELFPAY ==
[2024-02-29 18:14] VITALS: BP 156/80; PULSE 114; RESP 18; TEMP 37.7; O2SAT 97; BMI 29.5
--- NOTE | 2024-02-29 18:16 | HMH.EDGENADL ---
Discharge Plan Disposition Patient Disposition: Admitted Condition: Fair Clinical Impressions Clinical Impression: Cellulitis, Venous stasis ulcer, Venous stasis dermatitis Discharge ED Provider: Nishant Israel [facility] Adult HPI <FRANCESCO Oh - Last Filed: 02/29/24 19:41> General Chief complaint: Skin/Abscess/Foreign Body Stated complaint: Heart Racing,edema in both left,fever,sores on fee Time Seen by Provider: 02/29/24 18:16 History of Present Illness HPI narrative: Patient presents for evaluation of bilateral lower extremity swelling, fast heart rate fever redness and pain in his lower extremities. Patient has a longstanding history of venous insufficiency/peripheral vascular disease but does not have a history of diabetes. He does have a cardiac history as well. He used to follow with podiatry for venous stasis ulcers but has not followed with them in quite some time. He reports that over the last week he has had increasing pain swelling and redness along with her increasing heart rate and subjective fever. He denies chest pain shortness of breath hemoptysis hematochezia melena nausea vomiting diarrhea. Related Data Home Medications ?Medication ?Instructions ?Recorded ?Confirmed aspirin 81 mg tablet,delayed 81 mg PO DAILY HEART HEALTH 05/05/18 02/18/24 release buprenorphine 8 mg-naloxone 2 mg 2 tab sublingual DAILY addiction 06/21/18 02/18/24 sublingual tablet potassium chloride 20 mEq 40 meq PO BIDP PRN Supplement 08/08/22 02/18/24 tablet,extended release Previous Rx's ?Medication ?Instructions ?Recorded clopidogrel 75 mg tablet See Rx Instructions .Route 02/13/23 .COMPLEX #30 tabs venlafaxine 150 mg See Rx Instructions .Route 09/05/23 capsule,extended release 24 hr .COMPLEX #30 caps venlafaxine 75 mg capsule,extended See Rx Instructions .Route 09/05/23 release 24 hr .COMPLEX #30 caps furosemide 40 mg tablet See Rx Instructions .Route 10/23/23 .COMPLEX #30 tabs omeprazole 20 mg capsule,delayed See Rx Instructions .Route 10/23/23 release .COMPLEX #90 caps ergocalciferol (vitamin D2) 1,250 1,250 mcg PO WEEKLY #9 caps 10/31/23 mcg (50,000 unit) capsule ergocalciferol (vitamin D2) 50 mcg 50 mcg PO DAILY #30 caps 10/31/23 (2,000 unit) capsule levothyroxine 25 mcg tablet 25 mcg PO DAILY #30 tabs 11/13/23 promethazine 25 mg tablet See Rx Instructions .Route 12/26/23 .COMPLEX #40 tabs ipratropium 20 mcg-albuterol 100 See Rx Instructions .Route 02/05/24 mcg/actuation mist for inhalation .COMPLEX #4 grams (Combivent Respimat) nicotine (polacrilex) 4 mg buccal 4 mg buccal Q6H PRN nicotine 02/18/24 lozenge cravings #72 ea umeclidinium 62.5 mcg-vilanterol 1 inh inhalation DAILY 90 days 02/18/24 25 mcg/actuation powdr for #180 ea inhalation (Anoro Ellipta) Allergies Allergy/AdvReac Type Severity Reaction Status Date / Time cephalexin (From Keflex) Allergy Verified 02/18/24 13:13 ciprofloxacin (From Cipro) Allergy Verified 02/18/24 13:13 tramadol Allergy Verified 02/18/24 13:13 [facility] <FRANCESCO Oh - Last Filed: 02/29/24 19:41> [facility] Disclaimer: The information contained in this section may have been updated after the patient was seen, as this information can be updated by other users. Medical History (Updated 02/29/24 @ 20:06 by Nishant Israel MD) COPD mixed type Hypothyroidism Hyperparathyroidism History of hypokalemia Tobacco abuse disorder Tobacco abuse counseling Hilar lymphadenopathy Mediastinal lymphadenopathy Screening for lung cancer COPD (chronic obstructive pulmonary disease) Smoking greater than 30 pack years Dyspnea on exertion MRSA (methicillin resistant Staphylococcus aureus) Arthritis CHF (congestive heart failure) PVD (peripheral vascular disease) PAD (peripheral artery disease) Myocardial infarction Hyperlipidemia Hypertension CAD (coronary artery disease) Atherosclerosis History of anemia Edema of both lower extremities 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 Insomnia Edema Surgical History Hx of neck surgery History of back surgery History of esophagogastroduodenoscopy (EGD) History of coronary artery stent placement Hx of cholecystectomy History of cardiac cath History of appendectomy History of colonoscopy Family History Father Cancer Mother Cancer Other Alcoholism Coronary artery disease Diabetes Heart attack Hyperlipidemia Hypertension Kidney disease Social History (Updated 02/29/24 @ 19:41 by FRANCESCO Oh) Smoking Status: Current every day smoker tobacco type: cigarettes packs per day: 1 alcohol intake: former year quit: soci substance use type: former substance user and painkillers current occupational status: disabled Travel in the last 8 weeks: None household members: family housing: house lives independently: Yes marital status: education level: high school current occupational exposures/hazards: No caffeine: Yes special bety needs: No agree to transfusion: No do you feel safe at home: Yes victim of physical abuse: No victim of emotional abuse: No victim of sexual abuse: No would you like helpful sources: No Other Medical History Have you received the Flu Vaccine for this season: No Have you received the Pneumonia Vaccine: Yes <FRANCESCO Oh - Last Filed: 02/29/24 19:41> ROS Obtained: Yes Systems reviewed as appropriate & no additional complaints except as documented Physical Exam <FRANCESCO Oh - Last Filed: 02/29/24 19:41> General General appearance: alert and in no apparent distress Respiratory Respiratory exam: Present normal lung sounds bilaterally Cardiovascular Cardiovascular exam: Present tachycardia; Absent normal heart sounds Neurological Exam Neurological exam: Present alert and oriented X3 Medical Decision Making <FRANCESCO Oh - Last Filed: 02/29/24 19:41> Medical Records Medical records reviewed: Yes I reviewed the patient's medical records. Screening: Per USPSTF and CDC recommendations, given the prevalence of disease in our region, it is our hospital?s policy to screen for HIV and viral Hepatitis for all patients aged 18 and over and those with ongoing risk factors. Juan C Inquiry Pt receiving controlled substance: No Vital Signs: 02/29/24 18:14 02/29/24 18:30 02/29/24 19:00 Temperature 99.8 F H Temperature Source Oral Pulse Rate 109 H 106 H Pulse Rate [Radial] 114 H Respiratory Rate 18 Blood Pressure 117/68 Blood Pressure [Right Arm] 156/80 H Blood Pressure Mean [Right Arm] 105 Blood Pressure Source Blood Pressure Source [Right Arm] Automatic Cuff Blood Pressure Position Blood Pressure Position [Right Arm] Sitting 02 Sat by Pulse Oximetry 97 97 94 L Oxygen Delivery Method Room Air Room Air 02/29/24 19:30 02/29/24 20:02 Temperature 97.9 F Temperature Source Oral Pulse Rate 89 74 Pulse Rate [Radial] Respiratory Rate 18 Blood Pressure 130/66 135/72 Blood Pressure [Right Arm] Blood Pressure Mean [Right Arm] Blood Pressure Source Automatic Cuff Blood Pressure Source [Right Arm] Blood Pressure Position Supine Blood Pressure Position [Right Arm] 02 Sat by Pulse Oximetry 97 Oxygen Delivery Method Room Air Lab Data Lab results reviewed: Yes I reviewed the patient's lab results. Lab Results 02/29/24 18:23: WBC 9.0, RBC 3.44 L, Hgb 11.4 L, Hct 33.7 L, MCV 98.0 H, MCH 33.2 H, MCHC 33.9, RDW 15.2, Plt Count 179, MPV 8.2, Neut % (Auto) 80.8 H, Lymph % (Auto) 13.2, [place] % (Auto) 4.3, Eos % (Auto) 0.8, Baso % (Auto) 0.8, Neut # (Auto) 7.3, Lymph # (Auto) 1.2, [place] # (Auto) 0.4, Eos # (Auto) 0.1, Baso # (Auto) 0.1, Sodium 134 L, Potassium 4.1, Chloride 97 L, Carbon Dioxide 29, Anion Gap 12.1, BUN 15, Creatinine 0.90, Estimated Creat Clear 143, Estimated GFR 91, Est GFR ( Amer) 110, Glucose 134 H, Calcium 8.4, Total Bilirubin 1.2, AST 24, ALT 15, Alkaline Phosphatase 150 H, NT-Pro-B Natriuret Pep 508 H, Total Protein 7.0, Albumin 4.1, Globulin 2.9, Albumin/Globulin Ratio 1.4, Procalcitonin 0.226, HIV 1&2 Antibody Rapid Nonreactive 02/29/24 18:23 02/29/24 18:23 Orders (Tests/Meds): ED MEDICATIONS Generic Name Dose Route Start Last Admin Trade Name Freq PRN Reason Stop Dose Admin Levofloxacin/Dextrose 750 mg in 150 mls @ 100 mls/hr 02/29/24 19:15 02/29/24 19:21 Levofloxacin 750mg/150ml Premix IV 02/29/24 20:44 100 mls/hr ONCE ONE Administration Vancomycin HCl 2,000 mg/ 250 mls @ 125 mls/hr 02/29/24 19:15 02/29/24 19:21 Sodium Chloride IV 02/29/24 21:14 125 mls/hr ONCE ONE Administration Sodium Chloride 1,000 mls @ 100 mls/hr 02/29/24 20:00 Sod Chlor 0.9% 1000ml Bag IV 03/30/24 19:59 .Q10H [facility] Miscellaneous 1 each 02/29/24 19:15 02/29/24 19:22 Vancomycin Consult Request NOTAPPLIC 03/30/24 19:14 Not Given CONSULT PHARMACY [facility] Miscellaneous 1 each 02/29/24 20:00 Vancomycin Consult Request NOTAPPLIC 03/01/24 07:55 CONSULT PHARMACY [facility] Sodium Chloride 10 ml 02/29/24 19:47 Sodium Chloride 0.9% 10ml Flush Syringe IV 03/30/24 19:46 NEEDED PRN Maintain IV Site Discontinued Medications Generic Name Dose Route Start Last Admin Trade Name Freq PRN Reason Stop Dose Admin Acetaminophen 1,000 mg 02/29/24 18:17 02/29/24 19:00 Acetaminophen 500mg Tab PO 02/29/24 18:18 1,000 mg ONCE ONE Administration Metronidazole 500 mg in 100 mls @ 100 mls/hr 02/29/24 19:02 02/29/24 19:21 Flagyl 500mg/100ml Ivpb IV 02/29/24 20:01 100 mls/hr ONCE ONE Administration Ketorolac Tromethamine 30 mg 02/29/24 19:47 Ketorolac 30mg/Ml Vial IV 03/05/24 19:46 Q6HP PRN Mild to Moderate Pain (1-6) Ondansetron HCl 4 mg 02/29/24 19:02 02/29/24 19:21 Ondansetron 4mg/2ml Vial IV 02/29/24 19:03 4 mg ONCE ONE Administration ORDERS Category Date Time Status POCUS Point of Care (ER Only) Stat Exams 02/29/24 18:37 Ordered BNP [NT Pro Brain Natriuretic Pep.] Stat Lab 02/29/24 18:23 Completed CBC w/Auto Diff [Complete Blood Count Auto Diff] Stat Lab 02/29/24 18:23 Completed CMP [Comprehensive Metabolic Panel] Stat Lab 02/29/24 18:23 Completed HIV (1&2) Antibody Rapid Stat Lab 02/29/24 18:23 Completed Hep C Ab with Reflex to RNA Stat Lab 02/29/24 18:23 Received Procalcitonin Stat Lab 02/29/24 18:23 Completed Blood Culture Stat Micro 02/29/24 18:45 Received Tissue Perfus/Sepsis Re-Eval Sepsis Re-Evaluation Performed: Yes Date Performed: 02/29/24 Time Performed: 19:35 HEART Score History (anamnesis): Slightly suspicious ECG: Non-specific disturbance Age: 45-65 years Risk factors: Atherosclerosis history Troponin: </= normal limit HEART Score: 4 Medical Decision Narrative: In summary patient is a 48-year-old male who presents to the emergency department for evaluation of bilateral lower extremity swelling pain subjective fever and fast heart rate. Patient is initially normotensive with a blood pressure 156/80 pulse 114 respiratory rate 18 O2 sat 97% on room air upon arrival, temperature is 99.8. Physical exam is remarkable for brawny lymphedema in his bilateral lower extremities with 3+ pitting edema, ichthyosis, venous stasis ulcers that do not appear to be infected, onychomycosis of all of his toenails, he does have erythema that is more visible on the right than the left but is present bilaterally along with tenderness to palpation at the lateral calf but his extremities are warm and well-perfused to touch.. Differential diagnosis includes cellulitis versus lymphedema versus abscess etc. Initial workup will be conducted with POCUS, blood cultures, hematologic labs. Initial interventions include crystalloid bolus Toradol Tylenol Zofran. Initial workup reviewed by me shows a white count of 9 with an absolute neutrophil count of 7.3 CMP shows a sodium 134 chloride 97 glucose 134 and the remainder of his CMP is nonactionable, NT proBNP is 508 procalcitonin is normal but detectable at 0.2-6 and his POCUS reveals no abscess but cobblestoning. Given this I had interactive discussion with hospital medicine regarding patient management <Nishant Israel MD - Last Filed: 02/29/24 20:06> Vital Signs: 02/29/24 18:14 02/29/24 18:30 02/29/24 19:00 Temperature 99.8 F H Temperature Source Oral Pulse Rate 109 H 106 H Pulse Rate [Radial] 114 H Respiratory Rate 18 Blood Pressure 117/68 Blood Pressure [Right Arm] 156/80 H Blood Pressure Mean [Right Arm] 105 Blood Pressure Source Blood Pressure Source [Right Arm] Automatic Cuff Blood Pressure Position Blood Pressure Position [Right Arm] Sitting 02 Sat by Pulse Oximetry 97 97 94 L Oxygen Delivery Method Room Air Room Air 02/29/24 19:30 02/29/24 20:02 Temperature 97.9 F Temperature Source Oral Pulse Rate 89 74 Pulse Rate [Radial] Respiratory Rate 18 Blood Pressure 130/66 135/72 Blood Pressure [Right Arm] Blood Pressure Mean [Right Arm] Blood Pressure Source Automatic Cuff Blood Pressure Source [Right Arm] Blood Pressure Position Supine Blood Pressure Position [Right Arm] 02 Sat by Pulse Oximetry 97 Oxygen Delivery Method Room Air Lab Data Lab Results 02/29/24 18:23: WBC 9.0, RBC 3.44 L, Hgb 11.4 L, Hct 33.7 L, MCV 98.0 H, MCH 33.2 H, MCHC 33.9, RDW 15.2, Plt Count 179, MPV 8.2, Neut % (Auto) 80.8 H, Lymph % (Auto) 13.2, [place] % (Auto) 4.3, Eos % (Auto) 0.8, Baso % (Auto) 0.8, Neut # (Auto) 7.3, Lymph # (Auto) 1.2, [place] # (Auto) 0.4, Eos # (Auto) 0.1, Baso # (Auto) 0.1, Sodium 134 L, Potassium 4.1, Chloride 97 L, Carbon Dioxide 29, Anion Gap 12.1, BUN 15, Creatinine 0.90, Estimated Creat Clear 143, Estimated GFR 91, Est GFR ( Amer) 110, Glucose 134 H, Calcium 8.4, Total Bilirubin 1.2, AST 24, ALT 15, Alkaline Phosphatase 150 H, NT-Pro-B Natriuret Pep 508 H, Total Protein 7.0, Albumin 4.1, Globulin 2.9, Albumin/Globulin Ratio 1.4, Procalcitonin 0.226, HIV 1&2 Antibody Rapid Nonreactive Orders (Tests/Meds): ED MEDICATIONS Generic Name Dose Route Start Last Admin Trade Name Freq PRN Reason Stop Dose Admin Levofloxacin/Dextrose 750 mg in 150 mls @ 100 mls/hr 02/29/24 19:15 02/29/24 19:21 Levofloxacin 750mg/150ml Premix IV 02/29/24 20:44 100 mls/hr ONCE ONE Administration Vancomycin HCl 2,000 mg/ 250 mls @ 125 mls/hr 02/29/24 19:15 02/29/24 19:21 Sodium Chloride IV 02/29/24 21:14 125 mls/hr ONCE ONE Administration Sodium Chloride 1,000 mls @ 100 mls/hr 02/29/24 20:00 Sod Chlor 0.9% 1000ml Bag IV 03/30/24 19:59 .Q10H [facility] Miscellaneous 1 each 02/29/24 19:15 02/29/24 19:22 Vancomycin Consult Request NOTAPPLIC 03/30/24 19:14 Not Given CONSULT PHARMACY [facility] Miscellaneous 1 each 02/29/24 20:00 Vancomycin Consult Request NOTAPPLIC 03/01/24 07:55 CONSULT PHARMACY [facility] Sodium Chloride 10 ml 02/29/24 19:47 Sodium Chloride 0.9% 10ml Flush Syringe IV 03/30/24 19:46 NEEDED PRN Maintain IV Site Discontinued Medications Generic Name Dose Route Start Last Admin Trade Name Freq PRN Reason Stop Dose Admin Acetaminophen 1,000 mg 02/29/24 18:17 02/29/24 19:00 Acetaminophen 500mg Tab PO 02/29/24 18:18 1,000 mg ONCE ONE Administration Metronidazole 500 mg in 100 mls @ 100 mls/hr 02/29/24 19:02 02/29/24 19:21 Flagyl 500mg/100ml Ivpb IV 02/29/24 20:01 100 mls/hr ONCE ONE Administration Ketorolac Tromethamine 30 mg 02/29/24 19:47 Ketorolac 30mg/Ml Vial IV 03/05/24 19:46 Q6HP PRN Mild to Moderate Pain (1-6) Ondansetron HCl 4 mg 02/29/24 19:02 02/29/24 19:21 Ondansetron 4mg/2ml Vial IV 02/29/24 19:03 4 mg ONCE ONE Administration ORDERS Category Date Time Status POCUS Point of Care (ER Only) Stat Exams 02/29/24 18:37 Ordered BNP [NT Pro Brain Natriuretic Pep.] Stat Lab 02/29/24 18:23 Completed CBC w/Auto Diff [Complete Blood Count Auto Diff] Stat Lab 02/29/24 18:23 Completed CMP [Comprehensive Metabolic Panel] Stat Lab 02/29/24 18:23 Completed HIV (1&2) Antibody Rapid Stat Lab 02/29/24 18:23 Completed Hep C Ab with Reflex to RNA Stat Lab 02/29/24 18:23 Received Procalcitonin Stat Lab 02/29/24 18:23 Completed Blood Culture Stat Micro 02/29/24 18:45 Received ECG Data Tracing #1: Independently interpreted by me rate is 93, rhythm is regular, axis is rightward deviated, no ST elevation in anatomical contiguous leads, QTc 380. HEART Score HEART Score: 4 Medical Decision Narrative: In summary patient is a 48-year-old male who presents to the emergency department for evaluation of bilateral lower extremity swelling pain subjective fever and fast heart rate. Patient is initially normotensive with a blood pressure 156/80 pulse 114 respiratory rate 18 O2 sat 97% on room air upon arrival, temperature is 99.8. Physical exam is remarkable for brawny lymphedema in his bilateral lower extremities with 3+ pitting edema, ichthyosis, venous stasis ulcers that do not appear to be infected, onychomycosis of all of his toenails, he does have erythema that is more visible on the right than the left but is present bilaterally along with tenderness to palpation at the lateral calf but his extremities are warm and well-perfused to touch.. Differential diagnosis includes cellulitis versus lymphedema versus abscess etc. Initial workup will be conducted with POCUS, blood cultures, hematologic labs. Initial interventions include crystalloid bolus Toradol Tylenol Zofran. Initial workup reviewed by me shows a white count of 9 with an absolute neutrophil count of 7.3 CMP shows a sodium 134 chloride 97 glucose 134 and the remainder of his CMP is nonactionable, NT proBNP is 508 procalcitonin is normal but detectable at 0.2-6 and his POCUS reveals no abscess but cobblestoning. Given this I had interactive discussion with hospital medicine regarding patient management. I was consulted by the KEV, and we discussed the complexity of the problems being addressed. I approved the treatment and management plan for this patient's care in the emergency department, thus performing a substantive portion of the medical decision making. Patient has chronic venous stasis with superimposed cellulitic infection on the right lateral calf without evidence of soft tissue gas. There are also classic infected venous stasis ulcers and patient has been covered with appropriate antibiotics per ISDA guidelines. [id number] ultrasound: [id number] ultrasound of the soft tissue of the right lateral calf was performed. Performed by Nihsant Israel. Using the linear probe the area of asymmetric erythema over the right lateral calf was identified, there is cobblestoning and subcutaneous fluid which is consistent with edema versus cellulitis. However specifically there is no loculated fluid collection or tracking gas that would be concern for necrotizing infection or abscess. Images were saved to permanent archive. Patient tolerated the procedure well. Images were technically adequate and did not necessitate further imaging. Nishant Israel MD Critical Care <FRANCESCO Oh - Last Filed: 02/29/24 19:41> Critical Care Time Critical Care Time: No
[2024-02-29 18:30] VITALS: PULSE 109; O2SAT 97
[2024-02-29 18:31] LABS: Basophils # 0.1 K/mm3 (0-0.2); Basophils % 0.8 % (0.1-2.0); Eosinophils # 0.1 K/mm3 (0.0-0.4); Eosinophils % 0.8 % (0.1-12.0); Hematocrit 33.7 % (42.0-52.0); Hemoglobin 11.4 g/dL (14.1-18.0); Lymphocytes # 1.2 K/mm3 (0.7-4.5); Lymphocytes % 13.2 % (10-50); Mean Corpuscular HGB Conc 33.9 g/dL (31.8-35.4); Mean Corpuscular Hemoglobin 33.2 pg (27.0-31.2); Mean Platelet Volume 8.2 fl (7.4-10.4); Monocytes # 0.4 K/mm3 (0.1-1.0); Monocytes % 4.3 % (1.7-9.3); Neutrophils # 7.3 K/mm3 (1.8-7.8); Neutrophils % 80.8 % (37.0-80.0); Platelet Count 179 K/mm3 (142-424); Red Blood Count 3.44 M/mm3 (4.60-6.20); Red Cell Distribution Width 15.2 % (11.5-17.5)
[2024-02-29 18:52] LABS: Alanine Aminotransferase 15 U/L (12-78); Albumin Level 4.1 g/dl (3.5-5.0); Albumin/Globulin Ratio 1.4 (1.1-1.8); Alkaline Phosphatase 150 U/L (38-126); Anion Gap 12.1 mEq/L (5-15); Aspartate Amino Transferase 24 U/L (17-59); Bilirubin,Total 1.2 mg/dl (0.2-1.3); Blood Urea Nitrogen 15 mg/dl (9-20); Calcium 8.4 mg/dl (8.4-10.2); Carbon Dioxide 29 mmol/L (22.0-30.0); Chloride 97 mmol/L (98-107); Creatinine Clearance Estimated 143 mL/min (50-200); Estimated Glomerular Filt Rate 91 ml/min (>60); GFR (African American) 110 ML/MIN (>60); Globulin 2.9 g/dL (1.3-3.2); Glucose 134 mg/dl (74-100); Potassium 4.1 mmoL/L (3.5-5.1); Sodium 134 mmol/L (136-145)
[2024-02-29 19:00] VITALS: BP 117/68; PULSE 106; O2SAT 94
[2024-02-29] MEDS: ACETAMINOPHEN 500MG TAB 1000 MG PO (19:00)
[2024-02-29 19:02] LABS: NT Pro Brain Natriuretic Pep. 508 pg/mL (0-125)
[2024-02-29 19:09] LABS: Procalcitonin 0.226 ng/mL (0.0-2.0)
--- NOTE | 2024-02-29 19:11 | ECG_ITS ---
APPROVED REPORT Exam: Resting ECG HR:93 bpm ECG Measurements Heart Rate 93 AXES AK 147 P 70 QRSd 93 QRS 98 QT 330 T 20 QTc 380 Conclusion SINUS RHYTHM BORDERLINE RIGHT AXIS DEVIATION [QRS AXIS > 90] NONSPECIFIC T-WAVE ABNORMALITY BORDERLINE ECG Electronically signed by : JUDE BREWSTER, 02/29/2024 23:31:48
[2024-02-29] MEDS: LEVOFLOXACIN/D5W 750 MG/150 ML 750 MG/150 ML PIGGYBACK 100 MG IV (19:21)
[2024-02-29] MEDS: VANCOMYCIN HCL 2,000 MG in 0.9 % SODIUM CHLORIDE 250 ML 125 MG IV (19:21)
[2024-02-29] MEDS: METRONIDAZ/SOD CHL 500 MG/100 ML PIGGYBACK 100 MG IV (19:21)
[2024-02-29] MEDS: ONDANSETRON 4MG/2ML VIAL 4 MG IV (19:21)
[2024-02-29 19:30] VITALS: BP 130/66; PULSE 89; O2SAT 97
[2024-02-29 19:51] LABS: HIV (1&2) Antibody Rapid NONREACTIVE (NONREACTIVE)
[2024-02-29 20:01] VITALS: BMI 29.7
[2024-02-29 20:02] VITALS: BP 135/72; PULSE 74; RESP 18; TEMP 36.6; O2SAT 98
[2024-02-29 20:21] LABS: C-Reactive Protein 146.4 mg/L (0-4)
--- NOTE | 2024-02-29 20:24 | PC.NURSE ---
Pt arrived to floor via wheelchair @2019
[2024-02-29 20:33] LABS: Procalcitonin 0.224 ng/mL (0.0-2.0)
[2024-02-29 20:37] VITALS: BP 105/42; PULSE 92; RESP 18; TEMP 36.8; O2SAT 92
--- NOTE | 2024-02-29 20:53 | EXP.HP ---
History of Present Illness *Admission Date: 02/29/24 *Reason for visit:: BLE Cellulitis, Venous Stasis Ulcers, Venous Stasis Dermatitis *History of present illness: 48-year-old male patient, everyday smoker with past medical history of CHF, COPD, HTN, HLD, CAD with stents x 2, NSTEMI, PVD with venous stasis ulcers and dermatitis who was admitted to the hospital with worsening bilateral lower extremity pain, tenderness, swelling and wounds in addition to subjective fevers and high heart rate . The patient reports that he was a longstanding history of these wounds and was previously seen by podiatry, however he has not followed with them in some time. He was reluctant to come to the emergency room today however he felt sick enough that he should be seen. He denies nausea vomiting diarrhea chest pain shortness of breath MALU or HAYNES. [facility] Disclaimer: The information contained in this section may have been updated after the patient was seen, as this information can be updated by other users. Medical History COPD mixed type Hypothyroidism Hyperparathyroidism History of hypokalemia Tobacco abuse disorder Tobacco abuse counseling Hilar lymphadenopathy Mediastinal lymphadenopathy Screening for lung cancer COPD (chronic obstructive pulmonary disease) Smoking greater than 30 pack years Dyspnea on exertion MRSA (methicillin resistant Staphylococcus aureus) Arthritis CHF (congestive heart failure) PVD (peripheral vascular disease) PAD (peripheral artery disease) Myocardial infarction Hyperlipidemia Hypertension CAD (coronary artery disease) Atherosclerosis History of anemia Edema of both lower extremities 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 Insomnia Edema Surgical History Hx of neck surgery History of back surgery History of esophagogastroduodenoscopy (EGD) History of coronary artery stent placement Hx of cholecystectomy History of cardiac cath History of appendectomy History of colonoscopy Family History Father Cancer Mother Cancer Other Alcoholism Coronary artery disease Diabetes Heart attack Hyperlipidemia Hypertension Kidney disease Social History Smoking Status: Current every day smoker tobacco type: cigarettes packs per day: 1 alcohol intake: former year quit: soci substance use type: former substance user and painkillers current occupational status: disabled Travel in the last 8 weeks: None household members: family housing: house lives independently: Yes marital status: education level: high school current occupational exposures/hazards: No caffeine: Yes special bety needs: No agree to transfusion: No do you feel safe at home: Yes victim of physical abuse: No victim of emotional abuse: No victim of sexual abuse: No would you like helpful sources: No Other Medical History Have you received the Flu Vaccine for this season: No Have you received the Pneumonia Vaccine: Yes Review of Systems Review of Systems Review of systems:: pertinent systems reviewed and negative unless documented below Constitutional Constitutional: Reports body ache(s), Reports chills and Reports fever(s) *Musculoskeletal Musculoskeletal: Reports arthralgias, Reports joint swelling and Reports other (BLE swelling and pain.) Meds Home Medications and Allergies Home Medications ?Medication ?Instructions ?Recorded ?Confirmed ?Type aspirin 81 mg tablet,delayed 81 mg PO DAILY HEART HEALTH 05/05/18 02/18/24 History release buprenorphine 8 mg-naloxone 2 mg 2 tab sublingual DAILY addiction 06/21/18 02/18/24 History sublingual tablet potassium chloride 20 mEq 40 meq PO BIDP PRN Supplement 08/08/22 02/18/24 History tablet,extended release clopidogrel 75 mg tablet See Rx Instructions .Route 02/13/23 02/18/24 Rx .COMPLEX #30 tabs venlafaxine 150 mg See Rx Instructions .Route 09/05/23 02/18/24 Rx capsule,extended release 24 hr .COMPLEX #30 caps venlafaxine 75 mg capsule,extended See Rx Instructions .Route 09/05/23 02/18/24 Rx release 24 hr .COMPLEX #30 caps furosemide 40 mg tablet See Rx Instructions .Route 10/23/23 02/18/24 Rx .COMPLEX #30 tabs omeprazole 20 mg capsule,delayed See Rx Instructions .Route 10/23/23 02/18/24 Rx release .COMPLEX #90 caps ergocalciferol (vitamin D2) 1,250 1,250 mcg PO WEEKLY #9 caps 10/31/23 02/18/24 Rx mcg (50,000 unit) capsule ergocalciferol (vitamin D2) 50 mcg 50 mcg PO DAILY #30 caps 10/31/23 02/18/24 Rx (2,000 unit) capsule levothyroxine 25 mcg tablet 25 mcg PO DAILY #30 tabs 11/13/23 02/18/24 Rx promethazine 25 mg tablet See Rx Instructions .Route 12/26/23 02/18/24 Rx .COMPLEX #40 tabs ipratropium 20 mcg-albuterol 100 See Rx Instructions .Route 02/05/24 02/18/24 Rx mcg/actuation mist for inhalation .COMPLEX #4 grams (Combivent Respimat) nicotine (polacrilex) 4 mg buccal 4 mg buccal Q6H PRN nicotine 02/18/24 02/18/24 Rx lozenge cravings #72 ea umeclidinium 62.5 mcg-vilanterol 1 inh inhalation DAILY 90 days 02/18/24 02/18/24 Rx 25 mcg/actuation powdr for #180 ea inhalation (Anoro Ellipta) New Prescriptions to Start Prescriptions: Allergies Allergy/AdvReac Type Severity Reaction Status Date / Time cephalexin (From Keflex) Allergy Verified 02/18/24 13:13 ciprofloxacin (From Cipro) Allergy Verified 02/18/24 13:13 tramadol Allergy Verified 02/18/24 13:13 Exam Data for Last 24 hours Vital signs and Labs for Last 24 Hours: Temp Pulse Resp BP Pulse Ox O2 Del Method 98.3 F 92 H 18 105/42 L 92 L Room Air 02/29/24 20:37 02/29/24 20:37 02/29/24 20:37 02/29/24 20:37 02/29/24 20:37 02/29/24 20:37 Laboratory Results - last 24 hr 02/29/24 18:23: WBC 9.0, RBC 3.44 L, Hgb 11.4 L, Hct 33.7 L, MCV 98.0 H, MCH 33.2 H, MCHC 33.9, RDW 15.2, Plt Count 179, MPV 8.2, Neut % (Auto) 80.8 H, Lymph % (Auto) 13.2, [place] % (Auto) 4.3, Eos % (Auto) 0.8, Baso % (Auto) 0.8, Neut # (Auto) 7.3, Lymph # (Auto) 1.2, [place] # (Auto) 0.4, Eos # (Auto) 0.1, Baso # (Auto) 0.1, Sodium 134 L, Potassium 4.1, Chloride 97 L, Carbon Dioxide 29, Anion Gap 12.1, BUN 15, Creatinine 0.90, Estimated Creat Clear 143, Estimated GFR 91, Est GFR ( Amer) 110, Glucose 134 H, Calcium 8.4, Total Bilirubin 1.2, AST 24, ALT 15, Alkaline Phosphatase 150 H, C-Reactive Protein 146.4 H, NT-Pro-B Natriuret Pep 508 H, Total Protein 7.0, Albumin 4.1, Globulin 2.9, Albumin/Globulin Ratio 1.4, Procalcitonin 0.226 02/29/24 18:23: Procalcitonin 0.224, HIV 1&2 Antibody Rapid Nonreactive I & O for Last 24 hours: Intake & Output 02/26/24 02/27/24 02/28/24 02/29/24 23:59 23:59 23:59 23:59 Weight 99.79 kg *Routine HEENT Exam Head: Present normocephalic and atraumatic Eye: Present EOMI ENT: Present mucous membranes moist, oropharynx clear and other (Edentulous) *Routine Neck Exam Neck: Present full ROM; Absent lymphadenopathy or tenderness *Routine Respiratory Exam Respiratory: Present CTA bilaterally, normal respiratory effort and able to speak in complete sentences *Routine Cardiovascular Exam Cardiovascular: Present RRR *Routine Abdominal Exam Abdominal: Present soft; Absent tenderness or guarding *Routine Rectal Exam Rectal:: deferred *Routine Genitalia Exam Genitalia:: deferred *Routine Extremities Exam Extremities: Present edema (BLE nonpitting.), full ROM, tenderness (BLE) and joint swelling (BLE) Routine Back/Spine/Pelvis Exam Back/Spine: Present full ROM *Routine Skin Exam Skin: Present intact, erythema (BLE), warm and wounds (Dorsal aspect right foot. Right medial malleolus.) *Routine Neurological Exam Neurological: Present alert and oriented X3 Routine Psychiatric Exam Psychiatric: Present normal affect and normal thought process Assessment and Plan *Assessment and plan (1) Venous stasis dermatitis: Status: Acute Category: Medical Code(s): I87.2 - Venous insufficiency (chronic) (peripheral) (2) Venous stasis ulcer: Status: Acute Qualifiers: Venous stasis ulcer site: midfoot Laterality: left Non-pressure ulcer stage: unspecified non-pressure ulcer stage Varicose vein presence: without varicose veins Qualified Code(s): I87.2 - Venous insufficiency (chronic) (peripheral); L97.429 - Non-pressure chronic ulcer of left heel and midfoot with unspecified severity Category: Medical Code(s): I83.009 - Varicose veins of unspecified lower extremity with ulcer of unspecified site; L97.909 - Non-pressure chronic ulcer of unspecified part of unspecified lower leg with unspecified severity (3) Cellulitis: Status: Acute Qualifiers: Site of cellulitis: extremity Site of cellulitis of extremity: lower extremity Laterality: left Qualified Code(s): L03.116 - Cellulitis of left lower limb Category: Medical Code(s): L03.90 - Cellulitis, unspecified (4) Tobacco abuse: Status: Chronic Category: Medical Code(s): Z72.0 - Tobacco use (5) CAD (coronary artery disease): Status: Chronic Qualifiers: Associated angina: without angina Coronary Disease-Associated Artery/Lesion type: [place] artery [place] vs. transplanted heart: [place] heart Qualified Code(s): I25.10 - Atherosclerotic heart disease of [place] coronary artery without angina pectoris Category: Medical Code(s): I25.10 - Atherosclerotic heart disease of [place] coronary artery without angina pectoris (6) COPD (chronic obstructive pulmonary disease): Status: Chronic Qualifiers: COPD type: unspecified COPD Qualified Code(s): J44.9 - Chronic obstructive pulmonary disease, unspecified Category: Medical Code(s): J44.9 - Chronic obstructive pulmonary disease, unspecified (7) Tobacco abuse counseling: Status: Chronic Category: Medical Code(s): Z71.6 - Tobacco abuse counseling (8) Tobacco abuse disorder: Status: Chronic Category: Medical Code(s): Z72.0 - Tobacco use Plan PVD Venous Stasis Ulcers Venous Stasis Dermatitis Hyperglycemia WBC/Neut - 9/80.8. CRP - 146.4. ProCal - 0.224. BG - 134. ProBNP - 508. Podiatry Consult. PT Consult for wound care. MRSA swab pending. BC x 2 pending. Wound culture pending. Continue IV ABX - Vanc, Nafcillin. Pharmacy to dose Vanc. Cardiac/VS/O2 monitoring. COPD Current Smoker PRN Duonebs. Continue home inhalers - Incruse Ellipta 62.5/25 mcg daily. Supplemental O2 PRN. Smoking cessation discussed. Nicotine patch offered. Hypothyroid Continue home Synthroid 25 mcg PO QD. Depression/Anxiety Continue home Effexor - 150 mg. Chronic Conditions Hx of NSTEMI. CAD with stents x 2. CHF HTN/HLD The patient will require inpatient admission for greater than 48 hours for work-up and stabilization of their condition. I have personally reviewed pertinent laboratory data and imaging results as well as documentation in the patient's EMR. Laboratory and imaging orders per the above plan have been addressed. Home medications have been reviewed. Patient's case, assessment, and plan have been discussed on this date with patient and RN. Medical Decision Making: Patient presenting with bilateral lower extremity ulcers, pain and swelling. Case discussed with ED provider, decision made to admit to hospital.
--- NOTE | 2024-02-29 21:30 | PC.NURSE ---
Pt signed AMA form, left floor @21:30
--- NOTE | 2024-02-29 23:33 | P.SWB_ITS ---
Discharge/Transfer Plan of Care Resident has been informed of condition and prognosis?: Yes Mobility Status: ambulatory with assistance Certification: I have reviewed and agree with this resident's plan of care. I certify that post-hospital penitentiary facility services are required to be given on an inpatient basis because of the need for penitentiary care on a continuing basis for the condition(s) for which he/she is receiving inpatient hospital services prior to admission to swing bed. I also certify that the resident meets existing SNF level of care definition.
--- NOTE | 2024-02-29 23:35 | EXP.DC.SUM ---
General Admission date:: 02/29/24 Discharge date: 02/29/24 HPI HPI HPI: 48-year-old male patient, everyday smoker with past medical history of CHF, COPD, HTN, HLD, CAD with stents x 2, NSTEMI, PVD with venous stasis ulcers and dermatitis who was admitted to the hospital with worsening bilateral lower extremity pain, tenderness, swelling and wounds in addition to subjective fevers and high heart rate . The patient reports that he was a longstanding history of these wounds and was previously seen by podiatry, however he has not followed with them in some time. He was reluctant to come to the emergency room today however he felt sick enough that he should be seen. He denies nausea vomiting diarrhea chest pain shortness of breath MALU or HAYNES. Hospital Course Hospital Course Hospital Course: *Admission Date: 02/29/24 *Reason for visit:: BLE Cellulitis, Venous Stasis Ulcers, Venous Stasis Dermatitis *History of present illness: 48-year-old male patient, everyday smoker with past medical history of CHF, COPD, HTN, HLD, CAD with stents x 2, NSTEMI, PVD with venous stasis ulcers and dermatitis who was admitted to the hospital with worsening bilateral lower extremity pain, tenderness, swelling and wounds in addition to subjective fevers and high heart rate . The patient reports that he was a longstanding history of these wounds and was previously seen by podiatry, however he has not followed with them in some time. He was reluctant to come to the emergency room today however he felt sick enough that he should be seen. He denies nausea vomiting diarrhea chest pain shortness of breath MALU or HAYNES. 02/29/24 Shortly after admission the patient reports to nursing staff that he would like to leave. Lengthy discussion with patient regarding morbidity and mortality risks of leaving AMA. The patient vacillates on whether he wants to leave or stay. He states that he was not prepared for an overnight hospital stay and he feels like he needs to go home and tie up loose ends including taking care of his dog before a long-term stay in the hospital. He voices understanding of the risks of complications with leaving AMA. He also voices understanding that he can return anytime for further evaluation and treatment. Exam Data for Last 24 hours Vital signs and Labs for Last 24 Hours: Temp Pulse Resp BP Pulse Ox O2 Del Method 98.3 F 92 H 18 105/42 L 92 L Room Air 02/29/24 20:37 02/29/24 20:37 02/29/24 20:37 02/29/24 20:37 02/29/24 20:37 02/29/24 20:37 Laboratory Results - last 24 hr 02/29/24 18:23: WBC 9.0, RBC 3.44 L, Hgb 11.4 L, Hct 33.7 L, MCV 98.0 H, MCH 33.2 H, MCHC 33.9, RDW 15.2, Plt Count 179, MPV 8.2, Neut % (Auto) 80.8 H, Lymph % (Auto) 13.2, [place] % (Auto) 4.3, Eos % (Auto) 0.8, Baso % (Auto) 0.8, Neut # (Auto) 7.3, Lymph # (Auto) 1.2, [place] # (Auto) 0.4, Eos # (Auto) 0.1, Baso # (Auto) 0.1, Sodium 134 L, Potassium 4.1, Chloride 97 L, Carbon Dioxide 29, Anion Gap 12.1, BUN 15, Creatinine 0.90, Estimated Creat Clear 143, Estimated GFR 91, Est GFR ( Amer) 110, Glucose 134 H, Calcium 8.4, Total Bilirubin 1.2, AST 24, ALT 15, Alkaline Phosphatase 150 H, C-Reactive Protein 146.4 H, NT-Pro-B Natriuret Pep 508 H, Total Protein 7.0, Albumin 4.1, Globulin 2.9, Albumin/Globulin Ratio 1.4, Procalcitonin 0.226 02/29/24 18:23: Procalcitonin 0.224, HIV 1&2 Antibody Rapid Nonreactive I & O for Last 24 hours: Intake & Output 02/26/24 02/27/24 02/28/24 02/29/24 23:59 23:59 23:59 23:59 Weight 99.79 kg Narrative: *Routine HEENT Exam Head: Present normocephalic and atraumatic Eye: Present EOMI ENT: Present mucous membranes moist, oropharynx clear and other (Edentulous) *Routine Neck Exam Neck: Present full ROM; Absent lymphadenopathy or tenderness *Routine Respiratory Exam Respiratory: Present CTA bilaterally, normal respiratory effort and able to speak in complete sentences *Routine Cardiovascular Exam Cardiovascular: Present RRR *Routine Abdominal Exam Abdominal: Present soft; Absent tenderness or guarding *Routine Rectal Exam Rectal:: deferred *Routine Genitalia Exam Genitalia:: deferred *Routine Extremities Exam Extremities: Present edema (BLE nonpitting.), full ROM, tenderness (BLE) and joint swelling (BLE) Routine Back/Spine/Pelvis Exam Back/Spine: Present full ROM *Routine Skin Exam Skin: Present intact, erythema (BLE), warm and wounds (Dorsal aspect right foot. Right medial malleolus.) *Routine Neurological Exam Neurological: Present alert and oriented X3 Routine Psychiatric Exam Psychiatric: Present normal affect and normal thought process Results Data Completed and Pending Labs on day of discharge: Labs from last 24 hours 02/29/24 02/29/24 18:23 18:23 WBC 9.0 RBC 3.44 L Hgb 11.4 L Hct 33.7 L MCV 98.0 H MCH 33.2 H MCHC 33.9 RDW 15.2 Plt Count 179 MPV 8.2 Neut % (Auto) 80.8 H Lymph % (Auto) 13.2 [place] % (Auto) 4.3 Eos % (Auto) 0.8 Baso % (Auto) 0.8 Neut # (Auto) 7.3 Lymph # (Auto) 1.2 [place] # (Auto) 0.4 Eos # (Auto) 0.1 Baso # (Auto) 0.1 Sodium 134 L Potassium 4.1 Chloride 97 L Carbon Dioxide 29 Anion Gap 12.1 BUN 15 Creatinine 0.90 Estimated Creat Clear 143 Estimated GFR 91 Est GFR ( Amer) 110 Glucose 134 H Calcium 8.4 Total Bilirubin 1.2 AST 24 ALT 15 Alkaline Phosphatase 150 H C-Reactive Protein 146.4 H NT-Pro-B Natriuret Pep 508 H Total Protein 7.0 Albumin 4.1 Globulin 2.9 Albumin/Globulin Ratio 1.4 Procalcitonin 0.224 0.226 HIV 1&2 Antibody Rapid Nonreactive DS: Diagnosis Discharge Diagnosis (1) Venous stasis dermatitis: Status: Acute Code(s): I87.2 - Venous insufficiency (chronic) (peripheral) (2) Venous stasis ulcer: Status: Acute Code(s): I83.009 - Varicose veins of unspecified lower extremity with ulcer of unspecified site; L97.909 - Non-pressure chronic ulcer of unspecified part of unspecified lower leg with unspecified severity Qualifiers: Laterality: left Non-pressure ulcer stage: unspecified non-pressure ulcer stage Varicose vein presence: without varicose veins Venous stasis ulcer site: midfoot Qualified Code(s): I87.2 - Venous insufficiency (chronic) (peripheral); L97.429 - Non-pressure chronic ulcer of left heel and midfoot with unspecified severity (3) Cellulitis: Status: Acute Code(s): L03.90 - Cellulitis, unspecified Qualifiers: Laterality: left Site of cellulitis: extremity Site of cellulitis of extremity: lower extremity Qualified Code(s): L03.116 - Cellulitis of left lower limb (4) Tobacco abuse: Status: Chronic Code(s): Z72.0 - Tobacco use (5) CAD (coronary artery disease): Status: Chronic Code(s): I25.10 - Atherosclerotic heart disease of [place] coronary artery without angina pectoris Qualifiers: Associated angina: without angina Coronary Disease-Associated Artery/Lesion type: [place] artery [place] vs. transplanted heart: [place] heart Qualified Code(s): I25.10 - Atherosclerotic heart disease of [place] coronary artery without angina pectoris (6) COPD (chronic obstructive pulmonary disease): Status: Chronic Code(s): J44.9 - Chronic obstructive pulmonary disease, unspecified Qualifiers: COPD type: unspecified COPD Qualified Code(s): J44.9 - Chronic obstructive pulmonary disease, unspecified (7) Tobacco abuse counseling: Status: Chronic Code(s): Z71.6 - Tobacco abuse counseling Meds Home Medications and Allergies Home Medications ?Medication ?Instructions ?Recorded ?Confirmed ?Type aspirin 81 mg tablet,delayed 81 mg PO DAILY HEART HEALTH 05/05/18 02/18/24 History release buprenorphine 8 mg-naloxone 2 mg 2 tab sublingual DAILY addiction 06/21/18 02/18/24 History sublingual tablet potassium chloride 20 mEq 40 meq PO BIDP PRN Supplement 08/08/22 02/18/24 History tablet,extended release clopidogrel 75 mg tablet See Rx Instructions .Route 02/13/23 02/18/24 Rx .COMPLEX #30 tabs venlafaxine 150 mg See Rx Instructions .Route 09/05/23 02/18/24 Rx capsule,extended release 24 hr .COMPLEX #30 caps venlafaxine 75 mg capsule,extended See Rx Instructions .Route 09/05/23 02/18/24 Rx release 24 hr .COMPLEX #30 caps furosemide 40 mg tablet See Rx Instructions .Route 10/23/23 02/18/24 Rx .COMPLEX #30 tabs omeprazole 20 mg capsule,delayed See Rx Instructions .Route 10/23/23 02/18/24 Rx release .COMPLEX #90 caps ergocalciferol (vitamin D2) 1,250 1,250 mcg PO WEEKLY #9 caps 10/31/23 02/18/24 Rx mcg (50,000 unit) capsule ergocalciferol (vitamin D2) 50 mcg 50 mcg PO DAILY #30 caps 10/31/23 02/18/24 Rx (2,000 unit) capsule levothyroxine 25 mcg tablet 25 mcg PO DAILY #30 tabs 11/13/23 02/18/24 Rx promethazine 25 mg tablet See Rx Instructions .Route 12/26/23 02/18/24 Rx .COMPLEX #40 tabs ipratropium 20 mcg-albuterol 100 See Rx Instructions .Route 02/05/24 02/18/24 Rx mcg/actuation mist for inhalation .COMPLEX #4 grams (Combivent Respimat) nicotine (polacrilex) 4 mg buccal 4 mg buccal Q6H PRN nicotine 02/18/24 02/18/24 Rx lozenge cravings #72 ea umeclidinium 62.5 mcg-vilanterol 1 inh inhalation DAILY 90 days 02/18/24 02/18/24 Rx 25 mcg/actuation powdr for #180 ea inhalation (Anoro Ellipta) New Prescriptions to Start Prescriptions: Allergies Allergy/AdvReac Type Severity Reaction Status Date / Time cephalexin (From Keflex) Allergy Verified 02/18/24 13:13 ciprofloxacin (From Cipro) Allergy Verified 02/18/24 13:13 tramadol Allergy Verified 02/18/24 13:13 Discharge Plan Disposition Patient Disposition: Left Against Medical Advice Condition: Fair Patient Discharge Instructions Print Language: Sinhala Providers Admit Provider: Jono Durán Attending Provider: Jono Durán
[2024-03-02 11:13] LABS: HCV Ab Non Reactive (Non Reactive)
== END 2024-02-29 21:30 | disposition left against medical advice (07) ==
LOC: ER 19:41 → 2ND 20:28
PROVIDERS: Nurse Practitioner Acute Care; Physician Assistant; Admitting Provider Internal Medicine Adolescent Medicine; Emergency Provider Emergency Medicine; PCP Nurse Practitioner Family; Visit Provider Internal Medicine Adolescent Medicine
DX: I87.2 Venous insufficiency (chronic) (peripheral) (principal); L03.115 Cellulitis of right lower limb; L97.429 Non-pressure chronic ulcer of left heel and midfoot with unspecified severity; L03.116 Cellulitis of left lower limb; F17.210 Nicotine dependence, cigarettes, uncomplicated; I25.10 Atherosclerotic heart disease of native coronary artery without angina pectoris; J44.9 Chronic obstructive pulmonary disease, unspecified; Z79.899 Other long term (current) drug therapy
CPT/HCPCS: 80053; 83880; 84145; 85025; 86140; 86803; 87040; 87389; 93005; 99221; 99285; G0378; J1956; J2405; J3370

== ENCOUNTER 2024-09-29 10:43 | Emergency (ER) | payer MEDICARE, SELFPAY ==
--- NOTE | 2024-09-29 10:53 | ECG_ITS ---
APPROVED REPORT Exam: Resting ECG HR:100 bpm ECG Measurements Heart Rate 100 AXES AL 138 P 81 QRSd 86 QRS 90 QT 328 T 16 QTc 385 Conclusion SINUS TACHYCARDIA NONSPECIFIC ST & T-WAVE ABNORMALITY ABNORMAL RHYTHM ECG UNCONFIRMED REPORT Electronically signed by : KILLIAN SARAVIA, 09/30/2024 06:34:33
--- NOTE | 2024-09-29 10:58 | HMH.EDGENADL ---
Discharge Plan Disposition Patient Disposition: Home, Self-Care Prescriptions Prescriptions: New meclizine 25 mg tablet 25 mg PO DAILY PRN (Reason: motion sickness) Qty: 20 0RF No Action omeprazole 20 mg capsule,delayed release(DR/EC) See Rx Instructions .ROUTE .COMPLEX Qty: 90 3RF Dose Instruction: TAKE ONE CAPSULE BY MOUTH ONCE A DAY FOR STOMACH Rx Instructions: TAKE ONE CAPSULE BY MOUTH ONCE A DAY FOR STOMACH furosemide 40 mg tablet See Rx Instructions .ROUTE .COMPLEX Qty: 30 5RF Dose Instruction: TAKE 1 TABLET BY MOUTH ONCE A DAY NEEDED Rx Instructions: TAKE 1 TABLET BY MOUTH ONCE A DAY NEEDED bupropion HCl 75 mg tablet 75 mg PO BID Qty: 60 2RF mupirocin 2 % ointment 1 applic topical TID Qty: 15 0RF doxycycline hyclate 100 mg tablet 100 mg PO BID Qty: 20 0RF Anoro Ellipta 62.5-25 mcg/actuation blister with device 1 inh inhalation DAILY 90 Days Qty: 180 2RF clopidogrel 75 mg tablet See Rx Instructions .ROUTE .COMPLEX Qty: 30 0RF Dose Instruction: TAKE ONE TABLET BY MOUTH ONCE A DAY FOR BLOOD THINNER Rx Instructions: TAKE ONE TABLET BY MOUTH ONCE A DAY FOR BLOOD THINNER ergocalciferol (vitamin D2) 1,250 mcg (50,000 unit) capsule 1,250 mcg PO WEEKLY Qty: 9 3RF ergocalciferol (vitamin D2) 50 mcg (2,000 unit) capsule 50 mcg PO DAILY Qty: 30 4RF levothyroxine 25 mcg tablet See Rx Instructions .ROUTE .COMPLEX Qty: 90 1RF Dose Instruction: TAKE ONE TABLET BY MOUTH ONCE A DAY Rx Instructions: TAKE ONE TABLET BY MOUTH ONCE A DAY nicotine (polacrilex) 4 mg lozenge See Rx Instructions .ROUTE .COMPLEX Qty: 72 0RF Dose Instruction: DISSOLVE 1 LOZENGE EVERY 6 HOURS NEEDED FOR NICOTINE CRAVINGS Rx Instructions: DISSOLVE 1 LOZENGE EVERY 6 HOURS NEEDED FOR NICOTINE CRAVINGS Combivent Respimat 20-100 mcg/actuation mist See Rx Instructions .ROUTE .COMPLEX Qty: 4 4RF Dose Instruction: INHALE 2 PUFFS BY MOUTH 2 TIMES A DAY FOR BREATHING PROBLEMS Rx Instructions: INHALE 2 PUFFS BY MOUTH 2 TIMES A DAY FOR BREATHING PROBLEMS venlafaxine 75 mg capsule,extended release 24hr See Rx Instructions .ROUTE .COMPLEX Qty: 90 2RF Dose Instruction: TAKE ONE CAPSULE BY MOUTH ONCE A DAY Rx Instructions: TAKE ONE CAPSULE BY MOUTH ONCE A DAY promethazine 25 mg tablet See Rx Instructions .ROUTE .COMPLEX Qty: 30 0RF Dose Instruction: TAKE ONE TABLET BY MOUTH EVERY 8 HOURS NEEDED FOR NAUSEA/VOMITING Rx Instructions: TAKE ONE TABLET BY MOUTH EVERY 8 HOURS NEEDED FOR NAUSEA/VOMITING venlafaxine 150 mg capsule,extended release 24hr See Rx Instructions .ROUTE .COMPLEX Qty: 90 2RF Dose Instruction: TAKE ONE CAPSULE BY MOUTH WITH FOOD ONCE A DAY WITH 75 MG CAPSULE Rx Instructions: TAKE ONE CAPSULE BY MOUTH WITH FOOD ONCE A DAY WITH 75 MG CAPSULE aspirin 81 MG tablet,delayed release (DR/EC) 81 mg PO DAILY buprenorphine-naloxone 8 MG-2 tablet, sublingual 2 tab SL DAILY Rx Instructions: SUBOXONE 8/2 MG, TAKE 2 TABLETS DAILY PER MEENA @ [facility] potassium chloride 20 mEq tablet extended release 40 meq PO BIDP PRN (Reason: Supplement) Referrals Follow up/Referrals: Binu Alanis APRN [Primary Care Provider, Family Practice] - See instructions Clinical Impressions Clinical Impression: Dizziness Print Language Print Language: Guatemalan Discharge ED Provider: Dejan Suárez Adult HPI General Chief complaint: Dizziness Stated complaint: congestion, dizziness, elevated HR Time Seen by Provider: 09/29/24 10:58 History of Present Illness HPI narrative: Fili Barrera is a 49-year-old past medical history of hypothyroidism, CAD, anxiety presenting for dizziness. Patient said over the last 3 to 4 days when he gets up from sitting he feels unsteady and this continues while he is moving around but improves when he sits and rest for a moment. Patient said he took meclizine which significantly improved his symptoms but since it has been going on for 3 days decided come to the emergency department for further evaluation. He has had vertigo as a child but this is slightly different. He is been taking his medications as prescribed. At this time denies chest pain, shortness of breath, fevers, chills, congestion, ear pain Related Data Home Medications ?Medication ?Instructions ?Recorded ?Confirmed aspirin 81 mg tablet,delayed 81 mg PO DAILY [facility] 05/05/18 09/03/24 release buprenorphine 8 mg-naloxone 2 mg 2 tab sublingual DAILY addiction 06/21/18 09/03/24 sublingual tablet potassium chloride 20 mEq 40 meq PO BIDP PRN Supplement 08/08/22 09/03/24 tablet,extended release Previous Rx's ?Medication ?Instructions ?Recorded clopidogrel 75 mg tablet See Rx Instructions .Route 02/13/23 .COMPLEX #30 tabs furosemide 40 mg tablet See Rx Instructions .Route 10/23/23 .COMPLEX #30 tabs omeprazole 20 mg capsule,delayed See Rx Instructions .Route 10/23/23 release .COMPLEX #90 caps ergocalciferol (vitamin D2) 1,250 1,250 mcg PO WEEKLY #9 caps 10/31/23 mcg (50,000 unit) capsule ergocalciferol (vitamin D2) 50 mcg 50 mcg PO DAILY #30 caps 10/31/23 (2,000 unit) capsule umeclidinium 62.5 mcg-vilanterol 1 inh inhalation DAILY 90 days 02/18/24 25 mcg/actuation powdr for #180 ea inhalation (Anoro Ellipta) bupropion HCl 75 mg tablet 75 mg PO BID #60 tabs 03/04/24 levothyroxine 25 mcg tablet See Rx Instructions .Route 03/24/24 .COMPLEX #90 tabs nicotine (polacrilex) 4 mg buccal See Rx Instructions .Route 03/25/24 lozenge .COMPLEX #72 sinan ipratropium 20 mcg-albuterol 100 See Rx Instructions .Route 03/26/24 mcg/actuation mist for inhalation .COMPLEX #4 grams (Combivent Respimat) venlafaxine 75 mg capsule,extended See Rx Instructions .Route 06/21/24 release 24 hr .COMPLEX #90 caps doxycycline hyclate 100 mg tablet 100 mg PO BID #20 tabs 07/21/24 mupirocin 2 % topical ointment 1 applic topical TID #15 grams 07/21/24 promethazine 25 mg tablet See Rx Instructions .Route 09/10/24 .COMPLEX #30 tabs venlafaxine 150 mg See Rx Instructions .Route 09/26/24 capsule,extended release 24 hr .COMPLEX #90 caps meclizine 25 mg tablet 25 mg PO DAILY PRN motion sickness 09/29/24 #20 tabs Allergies Allergy/AdvReac Type Severity Reaction Status Date / Time cephalexin (From Keflex) Allergy Verified 09/03/24 10:52 ciprofloxacin (From Cipro) Allergy Verified 09/03/24 10:52 tramadol Allergy Verified 09/03/24 10:52 [facility] Disclaimer: The information contained in this section may have been updated after the patient was seen, as this information can be updated by other users. Medical History COPD mixed type Hypothyroidism Hyperparathyroidism History of hypokalemia Tobacco abuse disorder Tobacco abuse counseling Hilar lymphadenopathy Mediastinal lymphadenopathy Screening for lung cancer COPD (chronic obstructive pulmonary disease) Smoking greater than 30 pack years Dyspnea on exertion MRSA (methicillin resistant Staphylococcus aureus) Arthritis CHF (congestive heart failure) PVD (peripheral vascular disease) PAD (peripheral artery disease) Myocardial infarction Hyperlipidemia Hypertension CAD (coronary artery disease) Atherosclerosis History of anemia Edema of both lower extremities 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 Insomnia Edema Surgical History Hx of neck surgery lipoma History of back surgery x2-discectomy Upper back Lower back History of esophagogastroduodenoscopy (EGD) History of coronary artery stent placement Hx of cholecystectomy History of cardiac cath History of appendectomy History of colonoscopy Family History Father Cancer Mother Cancer Other Alcoholism Coronary artery disease Diabetes Heart attack Hyperlipidemia Hypertension Kidney disease Social History Smoking Status: Current every day smoker tobacco type: cigarettes packs per day: 1 alcohol intake: former year quit: soci substance use type: former substance user and painkillers current occupational status: disabled Travel in the last 8 weeks?: None household members: family housing: house lives independently: Yes marital status: education level: high school current occupational exposures/hazards: No caffeine: Yes special bety needs: No agree to transfusion: No do you feel safe at home: Yes victim of physical abuse: No victim of emotional abuse: No victim of sexual abuse: No would you like helpful sources: No Have you lived/traveled outside [place] in past 30 days?: No Contact w/someone who lives/traveled outside US past 30 days?: No Exposure to someone with infectious disease in past 14 days?: No Do you have a fever (greater than 100.4 F or 38 C)?: No Have you tested positive for COVID-19?: No Exposed to someone with COVID-19 in past 14 days?: No Do you have a sore throat?: No Do you have a cough?: No Do you have any weakness?: No Do you have any diarrhea?: No Are you experiencing any unusual bleeding?: No Do you have any muscle aches/pain?: No Do you have any abdominal pain?: No Are you experiencing loss of taste or smell?: No Other Medical History Have you received the Flu Vaccine for this season: No Have you received the Pneumonia Vaccine: No ROS Obtained: Yes All systems reviewed & no additional complaints except as documented Physical Exam General General appearance: alert Head Head exam: atraumatic Eye Eye exam: Present normal appearance, PERRL and EOMI; Absent nystagmus, miosis or mydriasis ENT ENT exam: Present normal exam, normal oropharynx and mucous membranes moist Neck Neck exam: Present normal inspection and full ROM Respiratory Respiratory exam: Present normal lung sounds bilaterally; Absent respiratory distress Cardiovascular Cardiovascular exam: Present regular rate and normal rhythm Abdominal Exam Abdominal exam: Present soft; Absent distention or tenderness Neurological Exam Neurological exam: Present alert, oriented X3, CN II-XII intact (No nystagmus), normal gait and other (Romberg test normal); Absent motor sensory deficit Medical Decision Making Medical Records Screening: Per USPSTF and CDC recommendations, given the prevalence of disease in our region, it is our hospital?s policy to screen for HIV and viral Hepatitis for all patients aged 18 and over and those with ongoing risk factors. Juan C Inquiry Pt receiving controlled substance: No Vital Signs: 09/29/24 10:59 09/29/24 13:44 Temperature 98.5 F 98.2 F Temperature Source Oral Pulse Rate 77 Pulse Rate [Left Radial] 98 H Respiratory Rate 20 20 Blood Pressure 93/64 L Blood Pressure [Right Arm] 124/69 Blood Pressure Mean [Right Arm] 87 02 Sat by Pulse Oximetry 98 Oxygen Delivery Method Room Air Room Air Lab Data Lab Results 09/29/24 11:00: WBC 5.4, RBC 4.37 L, Hgb 13.6 L, Hct 41.4 L, MCV 94.7 H, MCH 31.1, MCHC 32.9, RDW 13.3, Plt Count 175, MPV 8.4, Neut % (Auto) 79.0, Lymph % (Auto) 17.0, [place] % (Auto) 2.8, Eos % (Auto) 0.4, Baso % (Auto) 0.6, Neut # (Auto) 4.3, Lymph # (Auto) 0.9, [place] # (Auto) 0.2, Eos # (Auto) 0.0, Baso # (Auto) 0.0, Sodium 137, Potassium 3.5, Chloride 93 L, Carbon Dioxide 31 H, Anion Gap 16.5 H, BUN 13, Creatinine 1.10, Estimated Creat Clear 116, Estimated GFR 72, Est GFR ( Amer) 87, Glucose 163 H, Calcium 9.3, Total Bilirubin 0.5, AST 27, ALT 14, Alkaline Phosphatase 162 H, Troponin I < 0.01, Total Protein 8.9 H D, Albumin 4.8, Globulin 4.1 H, Albumin/Globulin Ratio 1.2, TSH 4.41, Free T4 1.06 09/29/24 11:00 09/29/24 11:00 Orders (Tests/Meds): ED MEDICATIONS Discontinued Medications Generic Name Dose Route Start Last Admin Trade Name Freq PRN Reason Stop Dose Admin Lactated Ringer's 500 mls @ 999 mls/hr 09/29/24 11:19 09/29/24 11:31 Lactated Ringer's 1000 Ml Bag IV 09/29/24 11:49 999 mls/hr .Q31M ONE Administration Iopamidol 80 ml 09/29/24 12:10 09/29/24 12:11 Iopamidol-370 (76%);100ml Bottle IV 09/29/24 12:11 80 ml ONCE ONE Administration Meclizine HCl 25 mg 09/29/24 11:19 09/29/24 11:31 Meclizine 25mg Tablet PO 09/29/24 11:20 25 mg ONCE ONE Administration Sodium Chloride 50 ml 09/29/24 12:10 09/29/24 12:11 0.9 % Sodium Chloride 50 Ml Vial IV 09/29/24 12:11 50 ml ONCE ONE Administration Sodium Chloride 10 ml 09/29/24 12:10 09/29/24 12:11 Sodium Chloride 0.9% 10ml Syr (Rad Only) IV 09/29/24 12:11 10 ml ONCE ONE Administration ORDERS Category Date Time Status CT angio head Stat Cat Scan 09/29/24 11:[address] angio neck Stat Cat Scan 09/29/24 11:[address] head/brain wo con Stat Cat Scan 09/29/24 11:19 Completed Complete Blood Count Auto Diff Stat Lab 09/29/24 11:00 Completed Comprehensive Metabolic Panel Stat Lab 09/29/24 11:00 Completed Free T4 (Free Thyroxine) Stat Lab 09/29/24 11:00 Completed Thyroid Stimulating Hormone Stat Lab 09/29/24 11:00 Completed Troponin I Stat Lab 09/29/24 11:00 Completed Medical Decision Narrative: In summary, this 49-year-old male presents to the emergency department today with dizziness. On initial evaluation patient is currently asymptomatic, neuro intact without nystagmus. His symptoms have been waxing and waning, which decreases my suspicion for central cause of his vertigo, but significant history will do scans to rule out large infarct. Otherwise had no other symptoms including chest pain or shortness of breath differential diagnosis includes but is not limited to peripheral vertigo, central vertigo. Based on these concerns, I ordered CTs. ECG personally interpreted demonstrates T wave inversions that are similar to previous, no ST elevation, QTc within normal limits. Patient received meclizine and fluids for treatment. Labs personally reviewed demonstrate undetectable troponin, no leukocytosis or EUNICE. CT imaging personally interpreted demonstrate no large intracranial hemorrhage or ischemic stroke. On reassessment patient feeling better and no symptoms at this time. Discussed that he will need to follow-up with ENT and his primary doctor for the symptoms and was sent home with meclizine for symptom control. Critical Care Critical Care Time Critical Care Time: No
[2024-09-29 10:59] VITALS: BP 124/69; PULSE 98; RESP 20; TEMP 36.9; O2SAT 98; BMI 32.1
--- NOTE | 2024-09-29 11:19 | CT_ITS ---
FINAL REPORT TECHNIQUE: Multiple axial CT angiography images were performed from the foramen magnum to the vertex before and during IV contrast administration. This study was performed with techniques to keep radiation doses as low as reasonably achievable (ALARA). Individualized dose reduction techniques using automated exposure control or adjustment of mA and/or kV according to the patient's size were employed. CLINICAL HISTORY: Dizziness FINDINGS: No acute intracranial hemorrhage or large acute cortical infarct. The brain volume is normal for the patient's age. Ventricles are of bracket normal in size and configuration. No midline shift. The basal cisterns are patent. CTA HEAD: The major intracranial arterial system is patent without hemodynamically significant stenosis or major vessel occlusion.No aneurysm is identified. IMPRESSION: No acute intracranial hemorrhage or large acute cortical infarct. No evidence of vascular injury, aneurysm, hemodynamically significant stenosis or major vessel occlusion of the intracranial arterial system. Reviewed, Interpreted and Dictated by Lesly Jean Baptiste MD Transcribed by Lori Gottlieb Authenticated and [facility]
--- NOTE | 2024-09-29 11:19 | CT_ITS ---
FINAL REPORT CLINICAL HISTORY: Dizziness FINDINGS: CT NECK ANGIO, WITHOUT AND WITH CONTRAST TECHNIQUE: Thin section axial CT with contrast with multiplanar 3D MIP reconstruction. This study was performed with techniques to keep radiation doses as low as reasonably achievable, (ALARA). Individualized dose reduction techniques using automated exposure control or adjustment of mA and/or kV according to the patient''s size were employed. NASCET criteria and technique was utilized during interpretation. FINDINGS: Aortic arch: Arch shows no significant narrowing. Great vessel origins are widely patent. Right carotid: No significant stenosis is seen of the cervical common or internal carotid artery. Left carotid: No significant stenosis is seen of the cervical common or internal carotid artery. Vertebrals: Left vertebral artery is dominant. No significant stenosis is present. IMPRESSION: No significant stenosis of the cervical carotid arteries This study was performed using automated techniques to achieve radiation exposure as low as reasonably Reviewed, Interpreted and Dictated by Lesly Jean Baptiste MD Transcribed by Lori Gottlieb Authenticated and . [facility]
--- NOTE | 2024-09-29 11:19 | CT_ITS ---
FINAL REPORT TECHNIQUE: Axial images were performed through the brain.This study was performed with techniques to keep radiation doses as low as reasonably achievable, (ALARA). Individualized dose reduction techniques using automated exposure control or adjustment of mA and/or kV according to the patient''s size were employed. CLINICAL HISTORY: Dizziness FINDINGS: There is global atrophy. The ventricles are normal in size for the degree of atrophy. There is no extra-axial fluid or midline shift. There is no evidence of acute hemorrhage or mass. IMPRESSION: Atrophy. No acute intracranial process. Reviewed, Interpreted and Dictated by Lesly Jean Baptiste MD Transcribed by Lori Gottlieb Authenticated and [facility][1]
--- OUTSIDE RECORDS SUMMARY | 2024-09-29 11:21 | XMS_ITS ---
Author Organization Unknown TREATMENT PLAN [facility] Start Date Provider Encounter for Check-up [phone] [facility]
[2024-09-29 11:22] LABS: Basophils % 0.6 % (0.1-2.0); Eosinophils % 0.4 % (0.1-12.0); Hematocrit 41.4 % (42.0-52.0); Hemoglobin 13.6 g/dL (14.1-18.0); Immature Granulocytes # 0.01 10^3uL; Immature Granulocytes % 0.2 %; Lymphocytes # 0.9 K/mm3 (0.7-4.5); Mean Corpuscular HGB Conc 32.9 g/dL (31.8-35.4); Mean Corpuscular Hemoglobin 31.1 pg (27.0-31.2); Mean Corpuscular Volume 94.7 fl (80-94); Mean Platelet Volume 8.4 fl (7.4-10.4); Monocytes # 0.2 K/mm3 (0.1-1.0); Monocytes % 2.8 % (1.7-9.3); Neutrophils # 4.3 K/mm3 (1.8-7.8); Nucleated Red Blood Cells # 0 10^3/uL; Nucleated Red Blood Cells % 0 %; Platelet Count 175 K/mm3 (142-424); Red Blood Count 4.37 M/mm3 (4.60-6.20); Red Cell Distribution Width 13.3 % (11.5-17.5); Red Cell Distribution Width-SD 46.2 fL; White Blood Count 5.4 K/mm3 (4.8-10.8)
[2024-09-29 11:28] LABS: Albumin Level 4.8 g/dl (3.5-5.0); Chloride 93 mmol/L (98-107)
[2024-09-29 11:29] LABS: Potassium 3.5 mmoL/L (3.5-5.1); Sodium 137 mmol/L (136-145)
[2024-09-29 11:31] LABS: Blood Urea Nitrogen 13 mg/dl (9-20); Creatinine Clearance Estimated 116 mL/min (50-200); Estimated Glomerular Filt Rate 72 ml/min (>60); GFR (African American) 87 ML/MIN (>60)
[2024-09-29] MEDS: MECLIZINE 25MG TABLET 25 MG PO (11:31)
[2024-09-29] MEDS: LACTATED RINGERS 1000ML 500 ML 999 ML IV (11:31)
[2024-09-29 11:32] LABS: Alanine Aminotransferase 14 U/L (12-78); Albumin/Globulin Ratio 1.2 (1.1-1.8); Alkaline Phosphatase 162 U/L (38-126); Anion Gap 16.5 mEq/L (5-15); Aspartate Amino Transferase 27 U/L (17-59); Bilirubin,Total 0.5 mg/dl (0.2-1.3); Calcium 9.3 mg/dl (8.4-10.2); Carbon Dioxide 31 mmol/L (22.0-30.0); Globulin 4.1 g/dL (1.3-3.2); Glucose 163 mg/dl (74-100); Total Protein,Serum 8.9 g/dl (6.3-8.2)
--- NOTE | 2024-09-29 11:50 | PC.NURSE ---
pt to RAD
[2024-09-29 11:52] LABS: Troponin I < 0.01 ng/ml (0.00-0.034)
--- NOTE | 2024-09-29 11:54 | PC.NURSE ---
pt going for CT at this time via wheelchair with motion study technician
[2024-09-29 12:00] LABS: Free T4 (Free Thyroxine) 1.06 ng/dl (0.78-2.19)
[2024-09-29] MEDS: IOPAMIDOL-370 (76%);100ML BOTTLE 80 ML IV (12:11)
[2024-09-29] MEDS: SODIUM CHLORIDE 0.9% 10ML SYR (RAD ONLY) 10 ML IV (12:11)
[2024-09-29] MEDS: 0.9 % SODIUM CHLORIDE 50 ML VIAL IV (12:11)
[2024-09-29 12:21] LABS: Thyroid Stimulating Hormone 4.41 uIU/mL (0.465-4.68)
[2024-09-29 13:44] VITALS: BP 93/64; PULSE 77; RESP 20; TEMP 36.8; O2SAT 98
== END 2024-09-29 13:45 | disposition home or self-care (01) ==
PROVIDERS: Emergency Provider Student in an Organized Health Care Education/Training Program; PCP Nurse Practitioner Family
DX: R42 Dizziness and giddiness (principal); F17.210 Nicotine dependence, cigarettes, uncomplicated; J44.9 Chronic obstructive pulmonary disease, unspecified; I25.10 Atherosclerotic heart disease of native coronary artery without angina pectoris; I10 Essential (primary) hypertension; E78.5 Hyperlipidemia, unspecified
CPT/HCPCS: 70450; 70496; 70498; 80053; 84439; 84443; 84484; 85025; 93005; 99285; J7120; Q9967

== ENCOUNTER 2024-11-16 22:23 | Inpatient (IN) | payer MEDICARE, SELFPAY ==
[2024-11-16] VITALS (7 sets, daily range): BP systolic 114–129; BP diastolic 61–73; PULSE 67–110; RESP 12–16; TEMP 37.2; O2SAT 81–97; BMI 31.3
--- NOTE | 2024-11-16 22:32 | ED_ITS ---
Discharge Plan Disposition Patient Disposition: Admitted Condition: Good Clinical Impressions Clinical Impression: Acute exacerbation of CHF (congestive heart failure), Pneumonia Discharge ED Provider: Savana Zee General Adult HPI General Chief complaint: Shortness of Breath/Dyspnea Stated complaint: Heart Racing;101.7 Fever; Nausea Time Seen by Provider: 11/16/24 22:32 History of Present Illness HPI narrative: Patient is a 49-year-old gentleman with a past medical history of COPD, heart failure who presented to the emergency department shortness of breath. Patient states that he has been feeling short of breath today. Patient had a fever at home of 101.7. Patient states that he was having some pain in his right lower back. Patient denied any chest pain. Patient denied any abdominal pain nausea vomiting or diarrhea. Patient denies any recent exposures to anyone who has been sick. Patient is a daily smoker. Patient states that he intermittently takes Lasix but does not take them daily. Patient denies any history of cancer, patient denies any history of blood clots. Related Data Home Medications ?Medication ?Instructions ?Recorded ?Confirmed aspirin 81 mg tablet,delayed 81 mg PO DAILY HEART HEAL TH 05/05/18 10/28/24 release buprenorphine 8 mg-naloxone 2 mg 2 tab sublingual CHAITANYA Y addiction 06/21/18 10/28/24 sublingual tablet Previous Rx's ?Medication ?Instructions ?Recorded clopidogrel 75 mg tablet See Rx Instructions .Route 1 04/15/22 .COMPLEX #30 tabs furosemide 40 mg tablet See Rx Instructions .Route 0 10/23/23 .COMPLEX #30 tabs ergocalciferol (vitamin D2) 1,250 1,250 mcg PO WEEKLY #9 caps 10/31/23 mcg (50,000 unit) capsule ergocalciferol (vitamin D2) 50 mcg 50 mcg PO DAILY #30 caps 10/31/23 (2,000 unit) capsule umeclidinium 62.5 mcg-vilanterol 1 inh inhalation CHAITANYA Y 90 days 02/18/24 25 mcg/actuation powdr for #180 ea inhalation (Anoro Ellipta) bupropion HCl 75 mg tablet 75 mg PO BID #60 tabs 03/04 levothyroxine 25 mcg tablet See Rx Instructions .Route 03/24/24 .COMPLEX #90 tabs ipratropium 20 mcg-albuterol 100 See Rx Instructions . Route 03/26/24 mcg/actuation mist for inhalation .COMPLEX #4 grams (Combivent Respimat) venlafaxine 75 mg capsule,extended See Rx Instructions .Route 06/21/24 release 24 hr .COMPLEX #90 caps venlafaxine 150 mg See Rx Instructions .Route 0 09/26/24 capsule,extended release 24 hr .COMPLEX #90 caps meclizine 25 mg tablet 25 mg PO DAILY PRN motion si ckness 11/13/24 #20 tabs omeprazole 20 mg capsule,delayed See Rx Instructions . Route 11/13/24 release .COMPLEX #90 caps promethazine 25 mg tablet See Rx Instructions .Route 0 11/14/24 .COMPLEX #30 tabs Allergies Allergy/AdvReac Type Severity Reaction Status Date / Time cephalexin (From Keflex) Allergy Verified 10/28/24 09:59 ciprofloxacin (From Cipro) Allergy Verified 10/28/24 09:59 tramadol Allergy Verified 10/28/24 09:59 PFS PFS Disclaimer: The information contained in this section may have been updated after the patient was seen, as this information can be updated by other users. Medical History (Updated 11/16/24 @ 23:54 by Savana Zee DO) Mixed hyperlipidemia COPD mixed type Hypothyroidism Hyperparathyroidism History of hypokalemia Tobacco abuse disorder Tobacco abuse counseling Hilar lymphadenopathy Mediastinal lymphadenopathy Screening for lung cancer COPD (chronic obstructive pulmonary disease) Smoking greater than 30 pack years Dyspnea on exertion MRSA (methicillin resistant Staphylococcus aureus) Arthritis CHF (congestive heart failure) PVD (peripheral vascular disease) PAD (peripheral artery disease) Myocardial infarction Hyperlipidemia Hypertension CAD (coronary artery disease) Atherosclerosis History of anemia Edema of both lower extremities 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 Insomnia Edema Surgical History Hx of neck surgery History of back surgery History of esophagogastroduodenoscopy (EGD) History of coronary artery stent placement Hx of cholecystectomy History of cardiac cath History of appendectomy History of colonoscopy Family History Father Cancer Mother Cancer Other Alcoholism Coronary artery disease Diabetes Heart attack Hyperlipidemia Hypertension Kidney disease Social History Smoking Status: Current every day smoker tobacco type: cigarettes packs per day: 1 alcohol intake: former year quit: soci substance use type: former substance user and painkillers current occupational status: disabled Travel in the last 8 weeks?: None household members: family housing: house lives independently: Yes marital status: education level: high school current occupational exposures/hazards: No caffeine: Yes special bety needs: No agree to transfusion: No do you feel safe at home: Yes victim of physical abuse: No victim of emotional abuse: No victim of sexual abuse: No would you like helpful sources: No Have you lived/traveled outside US in past 30 days?: No Contact w/someone who lives/traveled outside US past 30 days?: No Exposure to someone with infectious disease in past 14 days?: No Do you have a fever (greater than 100.4 F or 38 C)?: No Have you tested positive for COVID-19?: No Exposed to someone with COVID-19 in past 14 days?: No Do you have a sore throat?: No Do you have a cough?: No Do you have any weakness?: No Do you have any diarrhea?: No Are you experiencing any unusual bleeding?: No Do you have any muscle aches/pain?: No Do you have any abdominal pain?: No Are you experiencing loss of taste or smell?: No Other Medical History Have you received the Flu Vaccine for this season: No Have you received the Pneumonia Vaccine: No ROS Obtained: Yes All systems reviewed & no additional complaints except as documented and Yes Systems reviewed as appropriate & no additional complaints except as documented Physical Exam General General appearance: alert and in no apparent distress Head Head exam: atraumatic, normocephalic and normal inspection Eye Eye exam: Present normal appearance, PERRL and EOMI; Absent scleral icterus ENT ENT exam: Present normal exam and normal external ear exam Neck Neck exam: Present normal inspection and full ROM Chest Chest inspection: Present normal inspection and symmetric chest wall rise Respiratory Respiratory exam: Present respiratory distress and other (Crackles in the right lower base) Cardiovascular Cardiovascular exam: Present normal rhythm, tachycardia and normal heart sounds Abdominal Exam Abdominal exam: Present soft and distention; Absent tenderness, guarding or rebound Extremities Exam Extremities exam: Present normal inspection and full ROM Back Exam Back exam: Present normal inspection and full ROM Neurological Exam Neurological exam: Present alert and oriented X3 Psychiatric Psychiatric exam: Present normal affect and normal mood Skin Skin exam: Present warm and dry Medical Decision Making Medical Records Screening: Per USPSTF and CDC recommendations, given the prevalence of disease in our region, it is our hospital?s policy to screen for HIV and viral Hepatitis for all patients aged 18 and over and those with ongoing risk factors. Juan C Inquiry Pt receiving controlled substance: No Vital Signs: 11/16/24 22:36 11/16/24 22:46 11/16/24 23:10 Temperature 99 F Temperature Source Oral Pulse Rate 90 Pulse Rate [Right Radial] 110 H Respiratory Rate 16 12 Blood Pressure 122/64 Blood Pressure [Right Arm] 129/73 Blood Pressure Mean [Right Arm] 91 Blood Pressure Source [Right Arm] Automatic Cuff Blood Pressure Position [Right Arm] Supine 02 Sat by Pulse Oximetry 81 L 95 93 L Oxygen Delivery Method Room Air Nasal Cannula Oxygen Flow Rate (LPM) 4 11/16/24 23:20 11/16/24 23:30 11/16/24 23:41 Temperature Temperature Source Pulse Rate 90 89 67 Pulse Rate [Right Radial] Respiratory Rate 12 12 16 Blood Pressure 114/61 122/71 116/61 Blood Pressure [Right Arm] Blood Pressure Mean [Right Arm] Blood Pressure Source [Right Arm] Blood Pressure Position [Right Arm] 02 Sat by Pulse Oximetry 92 L 96 96 Oxygen Delivery Method Oxygen Flow Rate (LPM) 11/16/24 23:50 11/17/24 00:00 Temperature Temperature Source Pulse Rate 84 90 Pulse Rate [Right Radial] Respiratory Rate 12 9 L Blood Pressure 122/68 122/70 Blood Pressure [Right Arm] Blood Pressure Mean [Right Arm] Blood Pressure Source [Right Arm] Blood Pressure Position [Right Arm] 02 Sat by Pulse Oximetry 97 98 Oxygen Delivery Method Oxygen Flow Rate (LPM) Lab Data Lab results reviewed: Yes I reviewed the patient's lab results. Lab Results 11/16/24 22:32: WBC 7.2, RBC 3.02 L, Hgb 9.6 L, Hct 29.8 L, MCV 98.7 H, MCH 31.8 H, MCHC 32.2, RDW 14.7, Plt Count 205, MPV 8.7, Neut % (Auto) 79.0, Lymph % (Auto) 14.9, [place] % (Auto) 4.8, Eos % (Auto) 0.4, Baso % (Auto) 0.6, Neut # (Auto) 5.7, Lymph # (Auto) 1.1, [place] # (Auto) 0.4, Eos # (Auto) 0.0, Baso # (Auto) 0.0, PT 13.0 H, INR 1.19 H, Sodium 134 L, Potassium 3.3 L, Chloride 95 L, Carbon Dioxide 30, Anion Gap 12.3, BUN 13, Creatinine 1.00, Estimated Creat Clear 124, Estimated GFR 80, Est GFR ( Amer) 97, Glucose 156 H, Calcium 8.3 L, Total Bilirubin 1.2, AST 20, ALT 14, Alkaline Phosphatase 121, Troponin I 0.15 H, C-Reactive Protein 148.0 H, NT-Pro-B Natriuret Pep 7450 H, Total Protein 7.0, Albumin 3.9, Globulin 3.1, Albumin/Globulin Ratio 1.3 11/16/24 22:32 11/16/24 22:32 Orders (Tests/Meds): ED MEDICATIONS Generic Name Dose Route Start Last Admin Trade Name Freq PRN Reason Stop Dose Admin Levofloxacin/Dextrose 750 mg in 150 mls @ 100 mls/hr 11/16/24 23:45 11/17/24 00:09 Levofloxacin 750mg/150ml Premix IV 11/26/24 23:44 100 mls/hr Q24H WON Administration Discontinued Medications Generic Name Dose Route Start Last Admin Trade Name Freq PRN Reason Stop Dose Admin Albuterol/Ipratropium 9 ml 11/16/24 23:05 11/16/24 23:46 Ipratropium/Albuterol 3 Ml Neb IH 11/16/24 23:06 9 ml ONCE ONE Administration Furosemide 40 mg 11/16/24 23:41 11/16/24 23:54 Furosemide 40mg/4ml Vial IV 11/16/24 23:42 40 mg ONCE ONE Administration ORDERS Category Date Time Status CT angio chest PE protocol Stat Cat Scan 11/16/24 23:24 Ordered CXR --portable [XR chest portable] Stat Exams 11/16/24 22:38 Completed POCUS Point of Care (ER Only) Stat Exams 11/16/24 23:25 Ordered BNP [NT Pro Brain Natriuretic Pep.] Stat Lab 11/16/24 22:32 Completed CBC w/Auto Diff [Complete Blood Count Auto Diff] Stat Lab 11/16/24 22:32 Completed CMP [Comprehensive Metabolic Panel] Stat Lab 11/16/24 22:32 Completed CRP [C-Reactive Protein] Stat Lab 11/16/24 22:32 Completed Full Resp Panel w/COVID ([facility]) Routine Lab 11/16/24 22:44 Received PT INR [Prothrombin Time INR] Stat Lab 11/16/24 22:32 Completed Trop I [Troponin I] Stat Lab 11/16/24 22:32 Completed Troponin I Q3H Lab 11/17/24 01:45 Ordered Troponin I Q3H Lab 11/17/24 04:45 Ordered Blood Culture Stat Micro 11/16/24 22:55 Received Medical Decision Narrative: Patient is a 49-year-old gentleman with a past medical history of COPD, heart failure current smoker who presents to the emergency department with shortness of breath. On arrival, patient was hypoxic to 79% on room air, placed on 4 L nasal cannula. Patient vital signs were otherwise unremarkable. Differential includes but not limited to: COPD exacerbation, heart failure exacerbation, ACS/[place], pleural effusion, pneumonia, viral syndrome, amongst others. Patient's EKG was reviewed and interpreted by myself and showed normal sinus rhythm without acute ST or T wave changes concerning for ischemia. Patient did not have any wheezing on exam however patient was given DuoNebs to see if that provided any improvement. Bedside ultrasound was performed that showed a right sided pleural effusion. No B-lines were found anteriorly. Patient's labs were reviewed and interpreted by myself: CBC showed no leukocytosis, hemoglobin was stable. INR elevated at 1.19. CMP was unremarkable. Patient's initial troponin 0.15. CRP elevated at 148. BNP elevated at 7450. Patient's chest x-ray was reviewed and interpreted by myself and showed possible right pleural effusion at the base with concern for possible pneumonia. Patient was given IV Lasix given concern for component of heart failure given elevated BNP with a baseline of 500 as well as right sided pleural effusion. Patient was started on IV Levaquin for pneumonia coverage given concern for fever, pneumonia on chest x-ray. Patient has an allergy to cephalosporins. Given that patient was requiring 4 L nasal cannula which is an increased oxygen requirement from his baseline I felt the patient warranted admission. I discussed the case with hospital medicine who ultimately admitted the patient for further evaluation and workup. POCUS: Indication: shortness of breath Findings: R pleural effusion, no b-lines anteriorly Impression: R pleural effusion CPT Code: 79178-22 Critical Care Critical Care Time Critical Care Time: No
--- NOTE | 2024-11-16 22:34 | ECG_ITS ---
APPROVED REPORT Exam: Resting ECG HR:96 bpm ECG Measurements Heart Rate 96 AXES ID 112 P 62 QRSd 90 QRS 96 QT 334 T 11 QTc 388 Conclusion SINUS RHYTHM WITH SHORT ID INTERVAL POSSIBLE LEFT ATRIAL ENLARGEMENT [-0.1mV P-WAVE IN V1/V2] BORDERLINE RIGHT AXIS DEVIATION [QRS AXIS > 90] NONSPECIFIC ST & T-WAVE ABNORMALITY BORDERLINE ECG Electronically signed by : JUDE BREWSTER, 11/20/2024 22:00:06
--- OUTSIDE RECORDS SUMMARY | 2024-11-16 22:36 | XMS_ITS | Patient Health Record ---
Author Organization [id number] [facility] Address [address] [place], [place] [id number] Support Name Relationship Address Phone guy barrera Emergency Contact Unknown [phone] Fili Barrera Guarantor Unknown [phone] Reason For Referral No Information Medications Medication SIG (Take, Route, Frequency, Duration) Notes Start Date End Date Status Clopidogrel Bisulfate 75 MG 1 tablet Ora lly Once a day for 90 days 05/06/2018 Active Plan Of Treatment No Information Insurance Providers Payer Name Payer Address Payer Phone Subscriber Number Group Number Insured Name Patient Relationship to Insured Coverage Start Date Coverage End Date JONATHAN NON-HMO [address] [place], [place] [id number] Fili Mejias Self - patient is the insured 7
--- OUTSIDE RECORDS SUMMARY | 2024-11-16 22:36 | XMS_ITS | Clinical Summary ---
Author Organization [facility] Address [address] [place] [address] Care Team Providers Care Burn [facility] Nurse Name Role Phone Janell Cheung APRN Primary Care Provider [phone] Allergies Active Allergy Reactions Criticality Noted Date Comments Fluocinolone 04/25/2016 Cephalexin 04/25/2016 Tramadol 04/25/2016 Medications fluticasone (VERAMYST) 27.5 MCG/SPRAY nasal spray 2 sprays into each nostril Daily. Active albuterol (PROVENTIL HFA;VENTOLIN HFA) 108 (90 BASE) MCG/ACT inhaler Inhale 2 puffs Every 4 (Four) Hours As Needed for wheezing. Active Chlorcyclizine- Pseudoephed (STAHIST AD) 25-60 MG/5ML liquid Take 1 tablet by mouth 3 (Three) Times a Day. Active venlafaxine XR (EFFEXOR-XR) 150 MG 24 hr capsule Take 150 mg by mouth Daily. Active HYDROcodone-edil taminophen (NORCO) 10-325 MG per tablet Take 1 tablet by mouth Every 6 (Six) Hours As Needed for Moderate Pain (4-6). Active raNITIdine (ZANTAC) 150 MG tablet Take 150 mg by mouth 2 (Two) Times a Day. Active Social History Tobacco Use Types Packs/Day Years Used Date Smoking Tobacco: Every Day Cigarettes Alcohol Use Standard Drinks/Week Comments No 0 (1 standard drink = 0.6 oz pur e alcohol) Abuse Screen Answer Date Recorded Unsafe at Home or Work/School Not on file Feels Threatened by Someone? Not on file 12/2022 Does Anyone Keep You from Co ntacting Others or Doint Things Outside the Home? Not on file 01/15/2023 Physical Sign of Abuse Present Not on file 1 Housing Stability Answer Date Recorded Current Living Arrangements Not on file 12/2022 Potentially Unsafe Housing Conditions Not on marco e 01/15/2023 Family and Community Support Answer Kelvin e Recorded Help with Day-to-Day Activities Not on file 01/15/2023 Lonely or Isolated Not on file 01/15/2023 Employment Answer Date Recorded Do you want help finding or keeping work or a yudelka b? Not on file 01/15/2023 Disabilities Answer Date Recorded Concentrating, Remembering, or Making Decisions Difficulty Not on file 01/15/2023 Doing Errands Independently Difficulty Not on fi le 01/15/2023 Education Answer Date Recorded Help with school or training? Not on file Preferred Language Not on file 01/15/2023 Sex and Gender Information Value Date Recorded Sex Assigned at Not on file Legal Sex Male 11:55 AM EDT Gender Identity Not on file Sexual Orientation Not on file Last Filed Vital Signs Vital Sign Reading Time Taken Comments Blood Pressure 130/77 07/31/2016 5:03 AM EDT Pulse 65 07/31/2016 5:03 AM EDT Temperature 37.2 C (98.9 F) 07/30/2016 11:30 PM EDT Respiratory Rate 16 07/31/2016 5:03 AM EDT Oxygen Saturation 98% 07/31/2016 5:03 AM EDT Inhaled Oxygen Concentration - - Weight 93 kg (205 lb) 07/30/2016 11:32 PM EDT Height 177.8 cm (5' 10 ) 07/30/2016 11:32 PM EDT Body Mass Index 29.41 07/30/2016 11:32 PM EDT Plan of Treatment Health Maintenance Due Date Last Done Comments TDAP/TD VACCINES (1 - Tdap) 1996 ANNUAL PHYSICAL 07/31/2016 HEPATITIS C SCREENING 07/31/2016 COLOGUARD 2022 COLON CANCER SCREENING 5 YEA R SIGMOIDOSCOPY 2022 COLONOSCOPY 2022 COLORECTAL CANCER SCREENING 2022 CT COLONOGRAPHY 2022 FECAL OCCULT BLOOD TEST 2022 FIT Testing (1 year) 2022 COVID-19 Vaccine (2023-2 5 season) 2023 INFLUENZA VACCINE 01/07/2025 Pneumococcal Vaccine 0-49 Aged Out No longer eligible based on patient's age to complete this topic Insurance Care Teams Burn Center Nurse Relationship Specialty Start Date End Date Janell Cheung APRN [address] [place] [address] PCP - General Family Medicine 03/13/16
--- NOTE | 2024-11-16 22:38 | XR_ITS ---
PROCEDURE INFORMATION: Exam: XR Chest Exam date and time: 11/16/2024 11:04 PM Age: 49 years old Clinical indication: Shortness of breath; Additional info: Shortenss of breath, hypoxia TECHNIQUE: Imaging protocol: Radiologic exam of the chest. Views: 1 view. COMPARISON: CT CHEST W CON 08/29/2022 9:43 AM FINDINGS: Lungs: Moderate right lower lobe consolidative atelectasis. Left lung is clear other than small calcified granuloma. Pleural spaces: There has been interval development of moderate pleural opacity in the right costophrenic angle. No pneumothorax. Heart/Mediastinum: Unremarkable. No cardiomegaly. Bones/joints: Unremarkable. IMPRESSION: Opacity in the right lower chest suspected to represent a combination of pleural fluid and consolidative atelectasis, likely pneumonia
[2024-11-16 22:46] LABS: Hematocrit 29.8 % (42.0-52.0); Hemoglobin 9.6 g/dL (14.1-18.0); Immature Granulocytes % 0.3 %; Mean Corpuscular HGB Conc 32.2 g/dL (31.8-35.4); Mean Corpuscular Hemoglobin 31.8 pg (27.0-31.2); Mean Corpuscular Volume 98.7 fl (80-94); Nucleated Red Blood Cells % 0 %; Platelet Count 205 K/mm3 (142-424); Red Blood Count 3.02 M/mm3 (4.60-6.20); Red Cell Distribution Width-SD 53.1 fL; White Blood Count 7.2 K/mm3 (4.8-10.8)
[2024-11-16 22:55] LABS: Albumin Level 3.9 g/dl (3.5-5.0); Chloride 95 mmol/L (98-107); Potassium 3.3 mmoL/L (3.5-5.1); Sodium 134 mmol/L (136-145)
[2024-11-16 22:57] LABS: Blood Urea Nitrogen 13 mg/dl (9-20); Creatinine Clearance Estimated 124 mL/min (50-200); Creatinine,Serum 1.00 mg/dl (0.66-1.25); Estimated Glomerular Filt Rate 80 ml/min (>60); GFR (African American) 97 ML/MIN (>60)
[2024-11-16 22:58] LABS: Alanine Aminotransferase 14 U/L (12-78); Albumin/Globulin Ratio 1.3 (1.1-1.8); Alkaline Phosphatase 121 U/L (38-126); Anion Gap 12.3 mEq/L (5-15); Aspartate Amino Transferase 20 U/L (17-59); Bilirubin,Total 1.2 mg/dl (0.2-1.3); Calcium 8.3 mg/dl (8.4-10.2); Carbon Dioxide 30 mmol/L (22.0-30.0); Globulin 3.1 g/dL (1.3-3.2); Glucose 156 mg/dl (74-100); INR 1.19 (0.9-1.1); Prothrombin Time 13.0 seconds (10.1-12.5); Total Protein,Serum 7.0 g/dl (6.3-8.2)
[2024-11-16 23:01] LABS: Adenovirus,PCR Not Detected (NotDetected); Chlamydophila Pneumoniae, PCR Not Detected (NotDetected); Coronavirus 19, PCR Not Detected (NotDetected); Coronovirus HKU1,PCR Not Detected (NotDetected); Influenza A, PCR Not Detected (NotDetected); Influenza AH1, 2009 Not Detected (NotDetected); Influenza AH1, PCR Not Detected (NotDetected); Influenza AH3,PCR Not Detected (NotDetected); Influenza B, PCR Not Detected (NotDetected); Mycoplasma Pneumoniae, PCR Not Detected (NotDetected); Parainfluenza 1, PCR Not Detected (NotDetected); Parainfluenza 2, PCR Not Detected (NotDetected); Parainfluenza 3, PCR Not Detected (NotDetected); Parainfluenza 4, PCR Not Detected (NotDetected)
[2024-11-16 23:03] LABS: C-Reactive Protein 148.0 mg/L (0-4)
[2024-11-16 23:13] LABS: Troponin I 0.15 ng/ml (0.00-0.034)
[2024-11-16 23:21] LABS: NT Pro Brain Natriuretic Pep. 7450 pg/mL (0-125)
--- NOTE | 2024-11-16 23:24 | CT_ITS ---
PROCEDURE INFORMATION: Exam: CTA Chest With Contrast Exam date and time: 11/16/2024 11:55 PM Age: 49 years old Clinical indication: Shortness of breath and other: Hypoxia; Additional info: Hypoxia, shortness of breath TECHNIQUE: Imaging protocol: Computed tomographic angiography of the chest with contrast. Exam focused on the arteries. 3D rendering (Not supervised by radiologist): MIP and/or 3D reconstructed images were created by the technologist. Radiation optimization: All CT scans at this facility use at least one of these dose optimization techniques: automated exposure control; mA and/or kV adjustment per patient size (includes targeted exams where dose is matched to clinical indication); or iterative reconstruction. Contrast material: ISOUVE 370; Contrast volume: 80 ml; Contrast route: INTRAVENOUS (IV); COMPARISON: CT ANGIO CHEST PE PROTOCOL 06/08/2021 1:52 PM FINDINGS: Pulmonary arteries: Normal. No pulmonary emboli. Aorta: Unremarkable. No aortic aneurysm. No aortic dissection. Lungs: Moderate right lower lobe consolidative atelectasis. Mild dependent atelectasis in the left lower lobe. Upper lungs are clear. Small calcified granuloma in the lingula. Pleural spaces: There is bilateral pleural fluid, moderate volume on the right and minimal on the left. No evidence of pneumothorax. Heart: Unremarkable. No cardiomegaly. No pericardial effusion. Lymph nodes: Mild right hilar and subcarinal lymphadenopathy. No other significant lymphadenopathy evident. Small calcified subcarinal lymph nodes and left hilar lymph nodes compatible with old granulomatous disease. Bones/joints: Unremarkable. No acute fracture. Soft tissues: Unremarkable. IMPRESSION: Right lower lobe pneumonia with moderate volume right pleural fluid compatible with parapneumonic effusion. Mild associated right hilar and mediastinal lymphadenopathy
[2024-11-16] MEDS: IPRATROPIUM/ALBUTEROL 3 ML NEB 9 ML IH (23:46)
[2024-11-16] MEDS: FUROSEMIDE 40MG/4ML VIAL 40 MG IV (23:54)
[2024-11-17] VITALS (15 sets, daily range): BP systolic 100–124; BP diastolic 46–78; PULSE 60–94; RESP 9–18; TEMP 36.8–37.5; O2SAT 92–98; BMI 30.7
[2024-11-17] MEDS: LEVOFLOXACIN/D5W 750 MG/150 ML 750 MG/150 ML PIGGYBACK 100 MG IV ×2 (00:09→23:34)
--- NOTE | 2024-11-17 00:35 | PC.NURSE ---
Report called to Margarita (med/surg)
[2024-11-17] MEDS: 0.9 % SODIUM CHLORIDE 50 ML VIAL 40 ML IV (00:46)
[2024-11-17] MEDS: IOPAMIDOL-370 (76%);100ML BOTTLE 80 ML IV (00:46)
[2024-11-17] MEDS: SODIUM CHLORIDE 0.9% 10ML SYR (RAD ONLY) 10 ML IV (00:46)
--- NOTE | 2024-11-17 00:54 | P.HP_ITS ---
<Statement entered by Jono Durán MD - 11/17/24 17:29> Rounded on patient after nurse practitioner. Personally examined and interviewed patient. Agree with exam findings and care plan as documented. Patient was seen by pulmonology, cardiology, podiatry today. Discussed case with all 3 as follows: Podiatry: Performed debridement of patient's feet and trim toenails. Has an ulcer on his left foot. Painted with Betadine. Cultures obtained. Continuing broad-spectrum antibiotics as ordered. Case discussed with pulmonology, recommended continuing Anoro inhaler along with Combivent 4 times a day. Oxygen supplementation for sats greater than 90%. - Continue Levaquin renally dosed. Case discussed with cardiology, -Given his elevated BNP, continue Lasix daily for diuresis. Echo on admission with normal BiV systolic function. Borderline RV dilation. Appears to have acute on chronic HFpEF. -No plans for intervention at this time for his elevated troponin. Has NSTEMI secondary to his pneumonia. Continue aspirin therapy 81 mg daily. Will hold beta-henri, SANDRA, ARB, Arni. In regard to his anemia, peripheral smear pending. Stool occult pending. Transfusion threshold hemoglobin less than 7. Repeat CBC, CMP, magnesium ordered for the morning. History of Present Illness *Admission Date: 11/17/24 *Reason for visit:: Fever with hypoxia *History of present illness: Mr. Barrera 49-year-old male who has been a long-term smoker, has had a fever for approximately 2 days. He has come to the emergency room with significant decreased saturations on room air and had to be placed on oxygen. Since he has been here has received several breathing treatments but oxygen saturations will go from 85% to 94% depending on how much she is talking.. He shows no signs of distress heart rate remains the same and respiratory rate does not come up and he does not have a cough. Chest x-ray shows a probable right lower lobe pneumonia. Due to an allergy to Keflex ER provider talked to the patient and he has been placed on Levaquin even though it does show an allergy to Cipro. Per the patient and per his chart he has taken this before Patient has an extensive past medical history that has some concerning factors. Patient presently uses a rolling walker due to a back problem that leaves him bent forward. History of 2 back surgeries and a broken broken pelvis in the past. Patient also has extensive documentation for foot wounds and hammertoes. Noting that he is seeing podiatry often. Other concerning feature is his hemoglobin is down slightly in the past in 2021 the patient's hemoglobin got to 6.9 required iron replacements noting splenomegaly and also a liver mass that per my chart has not been evaluated lately. Will get with the patient to find any more history or whether we do need to work this up. Also noting extensively high parathyroid hormone low testosterone and elevated blood sugars but no history of hemoglobin A1c being done. In the emergency room at this time the patient is stable except for dropping his saturations to 85% at times. But I do feel he needs to be admitted to continue with pulmonary toileting IV antibiotics as needed and to evaluate this accumulation of fluid in the right lung and/a history of a liver mass to make sure that this is not a neoplasm. Will consult pulmonary and and with his history of cardiac problems we will also consult cardiology to evaluate him. Added3:40 after patient been in the room. Was able to convince the patient to take his socks off and pull up his pants please note that significant peripheral vascular disease with thickening of the skin that was not highlighted in past notes. Do note that the patient had basically been seeing the special education associate in the past for hammertoes. But the patient says it has been a long time and from the length of the toenails I can see that he is telling the truth he had the same podiatry in a long time. Definitely a source of infection open wounds to the lower feet. Patient states he has been taking his Suboxone on a regular basis and not using illegal drugs since 2018 [facility] Disclaimer: The information contained in this section may have been updated after the patient was seen, as this information can be updated by other users. Medical History (Updated 11/17/24 @ 13:42 by FRANCESCO Emerson) Acute and chronic respiratory failure with hypoxia Peripheral vascular disease of foot Mixed hyperlipidemia COPD mixed type Hypothyroidism Hyperparathyroidism History of hypokalemia Tobacco abuse disorder Tobacco abuse counseling Hilar lymphadenopathy Mediastinal lymphadenopathy Screening for lung cancer COPD (chronic obstructive pulmonary disease) Smoking greater than 30 pack years Dyspnea on exertion MRSA (methicillin resistant Staphylococcus aureus) Arthritis CHF (congestive heart failure) PVD (peripheral vascular disease) PAD (peripheral artery disease) Myocardial infarction Hyperlipidemia Hypertension CAD (coronary artery disease) Atherosclerosis History of anemia Edema of both lower extremities 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 Insomnia Edema Surgical History Hx of neck surgery History of back surgery History of esophagogastroduodenoscopy (EGD) History of coronary artery stent placement Hx of cholecystectomy History of cardiac cath History of appendectomy History of colonoscopy Family History Father Cancer Mother Cancer Other Alcoholism Coronary artery disease Diabetes Heart attack Hyperlipidemia Hypertension Kidney disease Social History (Updated 11/17/24 @ 01:49 by Margarita Clement RN) Smoking Status: Current every day smoker tobacco type: cigarettes packs per day: 1 alcohol intake: former year quit: soci substance use type: former substance user and painkillers current occupational status: disabled Travel in the last 8 weeks?: None adopted: No caregiver/support person: No foster care: No household members: family housing: house lives independently: Yes marital status: education level: high school current occupational exposures/hazards: No caffeine: Yes special bety needs: No agree to transfusion: No do you feel safe at home: Yes victim of physical abuse: No victim of emotional abuse: No victim of sexual abuse: No would you like helpful sources: No Have you lived/traveled outside [place] in past 30 days?: No Contact w/someone who lives/traveled outside [place] past 30 days?: No Exposure to someone with infectious disease in past 14 days?: No Do you have a fever (greater than 100.4 F or 38 C)?: No Have you tested positive for COVID-19?: No Exposed to someone with COVID-19 in past 14 days?: No Do you have a sore throat?: No Do you have a cough?: No Do you have any weakness?: No Are you experiencing any nausea/vomitting?: No Do you have any diarrhea?: No Are you experiencing any unusual bleeding?: No Do you have any muscle aches/pain?: No Do you have any abdominal pain?: No Are you experiencing loss of taste or smell?: No Other Medical History Have you received the Flu Vaccine for this season: No Have you received the Pneumonia Vaccine: No Review of Systems Review of Systems Review of systems:: pertinent systems reviewed and negative unless documented below Constitutional Constitutional: Reports as per HPI Comments: Patient talks freely without any difficulty is quite social Eyes Eyes: Reports as per HPI ENT Ears, Nose, Mouth, and Throat: Reports as per HPI *Cardiovascular Cardiovascular: Reports as per HPI, Reports dyspnea and Reports dyspnea on exertion *Respiratory Respiratory: Reports as per HPI, Reports chest congestion, Reports dyspnea and Reports dyspnea on exertion *Gastrointestinal Gastrointestinal: Reports as per HPI Comments: Denies abdominal pain or nausea, denies any blood in stool *Genitourinary Genitourinary: Reports as per HPI *Musculoskeletal Musculoskeletal: Reports as per HPI Integumentary/Breasts Skin/Breast: Reports as per HPI *Neurologic Neurologic: Reports as per HPI Comments: Patient has history of 2 back surgeries pelvic fracture uses rolling walker, Psychiatric Psychiatric: Reports as per HPI Endocrine Endocrine: Reports as per HPI Hematologic/Lymphatic Hematologic/Lymphatic: Reports as per HPI Allergic/Immunologic Allergic/Immunologic: Reports as per HPI Meds Home Medications and Allergies Home Medications ?Medication ?Instructions ?Recorded ?Confirmed ?Type aspirin 81 mg tablet,delayed 81 mg PO DAILY 05/05/18 0 11/17/24 History release buprenorphine 8 mg-naloxone 2 mg 2 tab sublingual CHAITANYA Y addiction 06/21/18 11/17/24 History sublingual tablet ergocalciferol (vitamin D2) 1,250 1,250 mcg PO WEEKLY #9 caps 10/31/23 11/17/24 Rx mcg (50,000 unit) capsule umeclidinium 62.5 mcg-vilanterol 1 inh inhalation CHAITANYA Y 90 days 02/18/24 11/17/24 Rx 25 mcg/actuation powdr for #180 ea inhalation (Anoro Ellipta) furosemide 40 mg tablet 40 mg PO DAILY PRN Edema 03/0311/17/24 History ipratropium 20 mcg-albuterol 100 2 puff inhalation BID 11/17/24 11/17/24 History mcg/actuation mist for inhalation (Combivent Respimat) levothyroxine 25 mcg tablet 25 mcg PO DAILY 11/17/24 0 11/17/24 History meclizine 25 mg tablet 25 mg PO DAILY PRN Dizziness 11/17/24 11/17/24 History omeprazole 20 mg capsule,delayed 20 mg PO DAILY 11/17/24 History release promethazine 25 mg tablet 25 mg PO Q8HP PRN Nausea And 11/17/24 11/17/24 History Vomiting venlafaxine 150 mg 150 mg PO DAILY 11/17/2403/03 History capsule,extended release 24 hr venlafaxine 75 mg capsule,extended 75 mg PO DAILY 11/0711/17/24 History release 24 hr New Prescriptions to Start Prescriptions: Allergies Allergy/AdvReac Type Severity Reaction Status Date / Time cephalexin (From Keflex) Allergy Verified 10/28/24 09:59 ciprofloxacin (From Cipro) Allergy Verified 10/28/24 09:59 tramadol Allergy Verified 10/28/24 09:59 Exam Data for Last 24 hours Vital signs and Labs for Last 24 Hours: Temp Pulse Resp BP Pulse Ox O2 Del Method O2 Flow Rate 99 F 94 H 16 122/78 96 Nasal Cannula 4 11/17/24 00:35 11/17/24 00:35 11/17/24 00:35 11/17/24 00:35 11/17/24 00:10 11/17/24 00:35 11/17/24 00:35 Laboratory Results - last 24 hr 11/16/24 22:32: WBC 7.2, RBC 3.02 L, Hgb 9.6 L, Hct 29.8 L, MCV 98.7 H, MCH 31.8 H, MCHC 32.2, RDW 14.7, Plt Count 205, MPV 8.7, Neut % (Auto) 79.0, Lymph % (Auto) 14.9, [place] % (Auto) 4.8, Eos % (Auto) 0.4, Baso % (Auto) 0.6, Neut # (Auto) 5.7, Lymph # (Auto) 1.1, [place] # (Auto) 0.4, Eos # (Auto) 0.0, Baso # (Auto) 0.0, PT 13.0 H, INR 1.19 H, Sodium 134 L, Potassium 3.3 L, Chloride 95 L, Carbon Dioxide 30, Anion Gap 12.3, BUN 13, Creatinine 1.00, Estimated Creat Clear 124, Estimated GFR 80, Est GFR ( Amer) 97, Glucose 156 H, Calcium 8.3 L, Total Bilirubin 1.2, AST 20, ALT 14, Alkaline Phosphatase 121, Troponin I 0.15 H, C-Reactive Protein 148.0 H, NT-Pro-B Natriuret Pep 7450 H, Total Protein 7.0, Albumin 3.9, Globulin 3.1, Albumin/Globulin Ratio 1.3 11/16/24 22:44: Chlamy pneumoniae PCR Not detected, Adenovirus (PCR) Not d etected, B. pertussis DNA (PCR) Not detected, Coronavirus OC43 (PCR) Not detected, Coronavirus HKU1 (PCR) Not detected, Coronavirus 229E (PCR) Not detected, SARS-CoV-2 (PCR) Not detected, Coronavirus NL63 (PCR) Not detected, Human Metapneumovir PCR Not detected, Influenza A (H1) PCR Not detected, Influ A (H1N1/09) PCR Not detected, Influenza A (H3) PCR Not detected, Influenza Type A (PCR) Not detected, Influenza Type B (PCR) Not detected, M. pneumoniae (PCR) Not detected, Parainfluenza 1 (PCR) Not detected, Parainfluenza 2 (PCR) Not detected, Parainfluenza 3 (PCR) Not detected, Parainfluenza 4 (PCR) Not detected, RSV (PCR) Not detected, Entero/Rhino (PCR) Not detected I & O for Last 24 hours: Intake & Output 11/14/24 11/15/24 11/16/24 11/17/24 05:59 05:59 05:59 05:59 Weight 212 lb Radiology Reports for the Last 24 Hours: Chest x-ray and chest CTA Constitutional Constitutional: mild distress and obese Comments: Patient on arrival was not feeling well after several breathing treatments doing much better., Patient talks freely has good interaction does not seem to be in distress at this point in time. Went ahead and had him remove his oxygen because he was running about 9495% oxygen saturations at times would drop to 85. They would almost immediately come back up depending on what the patient was doing he was sitting on his bed he showed no signs of distress or shortness of breath heart rate did not come up and respiratory rate did not change even though saturations were going down. *Routine HEENT Exam Head: Present normocephalic and atraumatic Eye: Present EOMI and PERRL ENT: Present mucous membranes moist *Routine Neck Exam Neck: Present supple and full ROM Comments: Neck exam perfectly normal no signs of lymphadenopathy or JVD *Routine Respiratory Exam Respiratory: Present decreased breath sounds, CTA bilaterally, normal respiratory effort, able to speak in complete sentences and symmetric chest movement Comments: My exam was after he had 3 breathing treatments and I've been told he is much improved *Routine Cardiovascular Exam Cardiovascular: Present RRR, Normal S1 and Normal S2 Comments: Heart tones was normal, ankles are much larger than normal but no significant pitting edema to lower extremity *Routine Abdominal Exam Abdominal: Present soft and normoactive bowel sounds Comments: Patient did not have any abdominal pain *Routine Rectal Exam Rectal:: deferred *Routine Genitalia Exam Genitalia:: deferred *Routine Extremities Exam Extremities: Present normal capillary refill (In fingers) Comments: Patient whenever he stands he leans forward at the waist. But is able to walk he does use a rolling walker because of his posture. 03:33, patient had refused to remove socks and long pants on originally coming to the room not wanting to wear a gown. After being able to get the second troponin which was elevated twelve-lead EKG was done patient did remove both socks and brought pulled his pants legs up. Both lower extremities just below the knee extremely hard darkened skin still has sensation to it to the ankles and feet. Extremely long overgrown nails both feet. There is a wound on the top of the left foot that is full-thickness that he did have a dressing over was wrapped with a Naida type dressing. Right foot is not as bad but there is looks like a area to the inner aspect of the right ankle that is trying to heal. *Routine Skin Exam Skin: Present intact and warm *Routine Neurological Exam Neurological: Present alert, oriented X3, CN II-XII intact, abnormal gait, vision grossly intact, hearing grossly intact and normal speech Comments: Patient noted for his abnormal gait related to back issues. 2 back surgeries 1 pelvic fracture but this is stable and he has been in this condition for approximately 2 years he says using the rolling walker H&P: Result Impressions 1. Hypoxia with fever acute secondary to patient being smoker and abnormal chest x-ray 2. Worsening anemia per labs. History of hemoglobin being as low as 6.9 in the past. 3. History of mass in the liver with no notes showing how it was been addressed or followed up. Also noting history of splenomegaly and iron deficiency low testosterone and elevated parathyroid hormone Imaging and Cardiology CT scan - chest: Additional comments: Pulmonary arteries: Normal. No pulmonary emboli. Aorta: Unremarkable. No aortic aneurysm. No aortic dissection. Lungs: Moderate right lower lobe consolidative atelectasis. Mild dependent atelectasis in the left lower lobe. Upper lungs are clear. Small calcified granuloma in the lingula. Pleural spaces: There is bilateral pleural fluid, moderate volume on the right and minimal on the left. No evidence of pneumothorax. Heart: Unremarkable. No cardiomegaly. No pericardial effusion. Lymph nodes: Mild right hilar and subcarinal lymphadenopathy. No other significant lymphadenopathy evident. Small calcified subcarinal lymph nodes and left hilar lymph nodes compatible with old granulomatous disease. Bones/joints: Unremarkable. No acute fracture. Soft tissues: Unremarkable. IMPRESSION: Right lower lobe pneumonia with moderate volume right pleural fluid compatible with parapneumonic effusion. Mild associated right hilar and mediastinal lymphadenopathy Assessment and Plan *Assessment and plan (1) Pneumonia: Status: Acute Qualifiers: Laterality: right Lung location: lower lobe of lung Pneumonia type: due to unspecified organism Qualified Code(s): J18.9 - Pneumonia, unspecified organism Category: Medical Code(s): J18.9 - Pneumonia, unspecified organism (2) COPD mixed type: Status: Acute Category: Medical Code(s): J44.9 - Chronic obstructive pulmonary disease, unspecified (3) SOB (shortness of breath): Status: Acute Category: Medical Code(s): R06.02 - Shortness of breath (4) Fever: Status: Acute Qualifiers: Fever type: unspecified Qualified Code(s): R50.9 - Fever, unspecified Category: Medical Code(s): R50.9 - Fever, unspecified (5) Supplemental oxygen dependent: Status: Acute Category: Medical Code(s): Z99.81 - Dependence on supplemental oxygen (6) Hilar lymphadenopathy: Status: Chronic Category: Medical Code(s): R59.0 - Localized enlarged lymph nodes (7) Tobacco abuse: Status: Chronic Category: Medical Code(s): Z72.0 - Tobacco use (8) Low serum testosterone: Status: Acute Category: Medical Code(s): R79.89 - Other specified abnormal findings of blood chemistry (9) Splenomegaly: Status: Acute Category: Medical Code(s): R16.1 - Splenomegaly, not elsewhere classified (10) Foot ulcer, left: Status: Acute Qualifiers: Non-pressure ulcer stage: with other severity Qualified Code(s): L97.528 - Non-pressure chronic ulcer of other part of left foot with other specified severity Category: Medical Code(s): L97.529 - Non-pressure chronic ulcer of other part of left foot with unspecified severity (11) Foot ulcer, right: Status: Acute Qualifiers: Non-pressure ulcer stage: with other severity Qualified Code(s): L97.518 - Non-pressure chronic ulcer of other part of right foot with other specified severity Category: Medical Code(s): L97.519 - Non-pressure chronic ulcer of other part of right foot with unspecified severity (12) Peripheral vascular disease of foot: Status: Acute Category: Medical Code(s): I73.9 - Peripheral vascular disease, unspecified Plan 1. Plan to admit the patient to the floor will continue continuous pulse ox and oxygen supplementation. Pulmonary toileting with nebulizers. Continue Levaquin at this point in time, consult to both pulmonology and cardiology 2. Evaluation of lower than usual H&H for the patient with a history of iron deficiency anemia and splenomegaly on, notes indicating a mass in the liver this did not show up on the CT scan of the lungs was not mentioned but may need further evaluation 3. Once the patient is to the floor will evaluate his lower extremities more long history of hammertoe and infection to the feet at times. As noted was able to fully assess the patient in the room on the floor podiatry consult ordered wound care will be started 4. Patient is on Suboxone says that he has not used illegal drugs since 2018.
[2024-11-17 02:46] LABS: Troponin I 0.23 ng/ml (0.00-0.034)
--- NOTE | 2024-11-17 02:47 | PC.NURSE ---
At 0245 was notified by lab that pt troponin level was elevated at 0.23 George EDUARDO was notified with order per chart. ANAYA VELEZ RN
--- NOTE | 2024-11-17 02:48 | ECG_ITS ---
APPROVED REPORT Exam: Resting ECG HR:87 bpm ECG Measurements Heart Rate 87 AXES FL 149 P 67 QRSd 101 QRS 95 QT 411 T 58 QTc 455 Conclusion SINUS RHYTHM BORDERLINE RIGHT AXIS DEVIATION [QRS AXIS > 90] ST DEVIATION AND MODERATE T-WAVE ABNORMALITY, CONSIDER ANTERIOR ISCHEMIA [-0.1+ mV T-WAVE IN V3/V4] ABNORMAL ECG UNCONFIRMED REPORT Electronically signed by : Brian Vanessa MD 11/17/2024 08:55:03
--- NOTE | 2024-11-17 04:45 | PC.WOUNDNOTE ---
right foot with wound
--- NOTE | 2024-11-17 04:46 | PC.WOUNDNOTE ---
bottom of right foot
[2024-11-17 06:05] LABS: Hematocrit 25.3 % (42.0-52.0); Mean Corpuscular HGB Conc 31.6 g/dL (31.8-35.4); Mean Corpuscular Hemoglobin 31.3 pg (27.0-31.2); Mean Corpuscular Volume 98.8 fl (80-94); Platelet Count 158 K/mm3 (142-424); Red Blood Count 2.56 M/mm3 (4.60-6.20); White Blood Count 5.7 K/mm3 (4.8-10.8)
[2024-11-17 06:35] LABS: Total Cells Counted 100
[2024-11-17 06:40] LABS: Hemoglobin 8.0 g/dL (14.1-18.0)
[2024-11-17 06:41] LABS: Hemoglobin A1C 5.3 % (4.0-6.0)
[2024-11-17 06:59] LABS: Troponin I 0.27 ng/ml (0.00-0.034)
--- NOTE | 2024-11-17 07:00 | PC.NURSE ---
0700 Lab call with critical troponin. 0.27 Phoned George VELEZ RN
--- NOTE | 2024-11-17 07:00 | EXP.POD.CONS ---
History of Present Illness *Admission Date: 11/17/24 *History of present illness: Mr. Barrera 49-year-old male who has been a long-term smoker, has had a fever for approximately 2 days. He has come to the emergency room with significant decreased saturations on room air and had to be placed on oxygen. Since he has been here has received several breathing treatments but oxygen saturations will go from 85% to 94% depending on how much she is talking.. He shows no signs of distress heart rate remains the same and respiratory rate does not come up and he does not have a cough. Chest x-ray shows a probable right lower lobe pneumonia. Due to an allergy to Keflex ER provider talked to the patient and he has been placed on Levaquin even though it does show an allergy to Cipro. Per the patient and per his chart he has taken this before Patient has an extensive past medical history that has some concerning factors. Patient presently uses a rolling walker due to a back problem that leaves him bent forward. History of 2 back surgeries and a broken broken pelvis in the past. Patient also has extensive documentation for foot wounds and hammertoes. Noting that he is seeing podiatry often. Other concerning feature is his hemoglobin is down slightly in the past in 2021 the patient's hemoglobin got to 6.9 required iron replacements noting splenomegaly and also a liver mass that per my chart has not been evaluated lately. Will get with the patient to find any more history or whether we do need to work this up. Also noting extensively high parathyroid hormone low testosterone and elevated blood sugars but no history of hemoglobin A1c being done. In the emergency room at this time the patient is stable except for dropping his saturations to 85% at times. But I do feel he needs to be admitted to continue with pulmonary toileting IV antibiotics as needed and to evaluate this accumulation of fluid in the right lung and/a history of a liver mass to make sure that this is not a neoplasm. Will consult pulmonary and and with his history of cardiac problems we will also consult cardiology to evaluate him. Added3:40 after patient been in the room. Was able to convince the patient to take his socks off and pull up his pants please note that significant peripheral vascular disease with thickening of the skin that was not highlighted in past notes. Do note that the patient had basically been seeing the rug setter [place] in the past for hammertoes. But the patient says it has been a long time and from the length of the toenails I can see that he is telling the truth he had the same podiatry in a long time. Definitely a source of infection open wounds to the lower feet. Patient states he has been taking his Suboxone on a regular basis and not using illegal drugs since 201711/17/24: Podiatry Consult, patient admitted today earlier in the morning hours for shortness of breath with probable right lower lobe pneumonia. Patient has been seen by Podiatry before in 2022 but not since then. Patient has wounds to his Right medial ankle and left dorsal foot. Cleaned with wound boiler cleaner and debrided with sterile curette. Plan to get B/L foot xrays and TWIN's. [facility] Disclaimer: The information contained in this section may have been updated after the patient was seen, as this information can be updated by other users. Medical History (Updated 11/17/24 @ 13:42 by FRANCESCO Emerson) Acute and chronic respiratory failure with hypoxia Peripheral vascular disease of foot Mixed hyperlipidemia COPD mixed type Hypothyroidism Hyperparathyroidism History of hypokalemia Tobacco abuse disorder Tobacco abuse counseling Hilar lymphadenopathy Mediastinal lymphadenopathy Screening for lung cancer COPD (chronic obstructive pulmonary disease) Smoking greater than 30 pack years Dyspnea on exertion MRSA (methicillin resistant Staphylococcus aureus) Arthritis CHF (congestive heart failure) PVD (peripheral vascular disease) PAD (peripheral artery disease) Myocardial infarction Hyperlipidemia Hypertension CAD (coronary artery disease) Atherosclerosis History of anemia Edema of both lower extremities 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 Insomnia Edema Surgical History Hx of neck surgery History of back surgery History of esophagogastroduodenoscopy (EGD) History of coronary artery stent placement Hx of cholecystectomy History of cardiac cath History of appendectomy History of colonoscopy Family History Father Cancer Mother Cancer Other Alcoholism Coronary artery disease Diabetes Heart attack Hyperlipidemia Hypertension Kidney disease Social History (Updated 11/17/24 @ 01:49 by Margarita Clement RN) Smoking Status: Current every day smoker tobacco type: cigarettes packs per day: 1 alcohol intake: former year quit: soci substance use type: former substance user and painkillers current occupational status: disabled Travel in the last 8 weeks?: None adopted: No caregiver/support person: No foster care: No household members: family housing: house lives independently: Yes marital status: education level: high school current occupational exposures/hazards: No caffeine: Yes special bety needs: No agree to transfusion: No do you feel safe at home: Yes victim of physical abuse: No victim of emotional abuse: No victim of sexual abuse: No would you like helpful sources: No Have you lived/traveled outside US in past 30 days?: No Contact w/someone who lives/traveled outside US past 30 days?: No Exposure to someone with infectious disease in past 14 days?: No Do you have a fever (greater than 100.4 F or 38 C)?: No Have you tested positive for COVID-19?: No Exposed to someone with COVID-19 in past 14 days?: No Do you have a sore throat?: No Do you have a cough?: No Do you have any weakness?: No Are you experiencing any nausea/vomitting?: No Do you have any diarrhea?: No Are you experiencing any unusual bleeding?: No Do you have any muscle aches/pain?: No Do you have any abdominal pain?: No Are you experiencing loss of taste or smell?: No Review of Systems *Neurologic Neurologic: Reports as per [facility] Meds Home Medications and Allergies Home Medications ?Medication ?Instructions ?Recorded ?Confirmed ?Type aspirin 81 mg tablet,delayed 81 mg PO DAILY 05/05/18 11/17/24 History release buprenorphine 8 mg-naloxone 2 mg 2 tab sublingual DAILY addiction 06/21/18 11/17/24 History sublingual tablet ergocalciferol (vitamin D2) 1,250 1,250 mcg PO WEEKLY #9 caps 10/31/23 11/17/24 Rx mcg (50,000 unit) capsule umeclidinium 62.5 mcg-vilanterol 1 inh inhalation DAILY 90 days 02/18/24 11/17/24 Rx 25 mcg/actuation powdr for #180 ea inhalation (Anoro Ellipta) furosemide 40 mg tablet 40 mg PO DAILY PRN Edema 11/17/24 11/17/24 History ipratropium 20 mcg-albuterol 100 2 puff inhalation BID 11/17/24 11/17/24 History mcg/actuation mist for inhalation (Combivent Respimat) levothyroxine 25 mcg tablet 25 mcg PO DAILY 11/17/24 11/17/24 History meclizine 25 mg tablet 25 mg PO DAILY PRN Dizziness 11/17/24 11/17/24 History omeprazole 20 mg capsule,delayed 20 mg PO DAILY 11/17/24 11/17/24 History release promethazine 25 mg tablet 25 mg PO Q8HP PRN Nausea And 11/17/24 11/17/24 History Vomiting venlafaxine 150 mg 150 mg PO DAILY 11/17/24 11/17/24 History capsule,extended release 24 hr venlafaxine 75 mg capsule,extended 75 mg PO DAILY 11/17/24 11/17/24 History release 24 hr New Prescriptions to Start Prescriptions: Allergies Allergy/AdvReac Type Severity Reaction Status Date / Time cephalexin (From Keflex) Allergy Verified 10/28/24 09:59 ciprofloxacin (From Cipro) Allergy Verified 10/28/24 09:59 tramadol Allergy Verified 10/28/24 09:59 Exam (Inpt) Vital signs and Labs for Last 24 Hours: Temp Pulse Resp BP Pulse Ox O2 Del Method O2 Flow Rate 99.5 F 70 18 109/58 L 97 Nasal Cannula 4 11/17/24 01:28 11/17/24 04:00 11/17/24 01:28 11/17/24 01:28 11/17/24 02:01 11/17/24 05:00 11/17/24 05:00 Laboratory Results - last 24 hr 11/16/24 22:32: WBC 7.2, RBC 3.02 L, Hgb 9.6 L, Hct 29.8 L, MCV 98.7 H, MCH 31.8 H, MCHC 32.2, RDW 14.7, Plt Count 205, MPV 8.7, Neut % (Auto) 79.0, Lymph % (Auto) 14.9, Sampson % (Auto) 4.8, Eos % (Auto) 0.4, Baso % (Auto) 0.6, Neut # (Auto) 5.7, Lymph # (Auto) 1.1, Sampson # (Auto) 0.4, Eos # (Auto) 0.0, Baso # (Auto) 0.0, PT 13.0 H, INR 1.19 H, Sodium 134 L, Potassium 3.3 L, Chloride 95 L, Carbon Dioxide 30, Anion Gap 12.3, BUN 13, Creatinine 1.00, Estimated Creat Clear 124, Estimated GFR 80, Est GFR ( Amer) 97, Glucose 156 H, Calcium 8.3 L, Total Bilirubin 1.2, AST 20, ALT 14, Alkaline Phosphatase 121, Troponin I 0.15 H, C-Reactive Protein 148.0 H, NT-Pro-B Natriuret Pep 7450 H, Total Protein 7.0, Albumin 3.9, Globulin 3.1, Albumin/Globulin Ratio 1.3 11/16/24 22:44: Chlamy pneumoniae PCR Not detected, Adenovirus (PCR) Not detected, B. pertussis DNA (PCR) Not detected, Coronavirus OC43 (PCR) Not detected, Coronavirus HKU1 (PCR) Not detected, Coronavirus 229E (PCR) Not detected, SARS-CoV-2 (PCR) Not detected, Coronavirus NL63 (PCR) Not detected, Human Metapneumovir PCR Not detected, Influenza A (H1) PCR Not detected, Influ A (H1N1/09) PCR Not detected, Influenza A (H3) PCR Not detected, Influenza Type A (PCR) Not detected, Influenza Type B (PCR) Not detected, M. pneumoniae (PCR) Not detected, Parainfluenza 1 (PCR) Not detected, Parainfluenza 2 (PCR) Not detected, Parainfluenza 3 (PCR) Not detected, Parainfluenza 4 (PCR) Not detected, RSV (PCR) Not detected, Entero/Rhino (PCR) Not detected 11/17/24 01:51: Troponin I 0.23 H 11/17/24 05:03: WBC 5.7, RBC 2.56 L, Hgb 8.0 L D, Hct 25.3 L, MCV 98.8 H, MCH 31.3 H, MCHC 31.6 L, RDW 14.6, Plt Count 158, MPV 8.6, Neut % (Auto) 75.7, Lymph % (Auto) 17.2, Sampson % (Auto) 6.1, Eos % (Auto) 0.2, Baso % (Auto) 0.4, Neut # (Auto) 4.3, Lymph # (Auto) 1.0, Sampson # (Auto) 0.4, Eos # (Auto) 0.0, Baso # (Auto) 0.0, Total Counted 100, Neutrophils % (Manual) 80 H, Lymphocytes % (Manual) 13, Monocytes % (Manual) 7, ESR 132 H, Hemoglobin A1c 5.3, Troponin I 0.27 H I & O for Labs for Last 24 Hours: Intake & Output 11/14/24 11/15/24 11/16/24 11/17/24 23:59 23:59 23:59 23:59 Output Total 1415 / 1415 Balance -1415 / -1415 Weight 212 lb 207 lb 6.01 oz Constitutional: Present no acute distress and cooperative Head: Present normocephalic Eye: Present as per HPI Neck: Present normal inspection Respiratory: Present normal respiratory effort and able to speak in complete sentences Comment:: Patient wearing nasal cannula oxygen, no shortness of breath observed. Cardiac: Present posterior tibial pulses present and pedal pulses present Comment:: B/L DP/PT noted, the PT somewhat weaker than DP. Order for TWIN's to check blood flow and circulation ordered this morning. Comments:: deferred Rectal (male): Present deferred (male): Present deferred Extremities: Present tenderness Comment:: B/L lower legs skin is dark in color, thickened skin from history of peripheral vascular disease. Patient stated that the wound to his left dorsal foot would get better and then get worse, he has had it off and on over a year. The Right medial ankle has been there a few months now and his wound just wont heal. -Nails, thick and very long, has not been trimmed for some time. Nails trimmed x 10. -Thick hyper-keratosis noted to both feet and lower legs. Skin: Present wounds Comment:: -Right medial ankle ulcer, wound Debrided with a sterile curette sharply, excisionally through skin into the subcu layer. Fibrotic tissue was removed. Good bleeding was noted. Granular base was noted. Post debridement the wound measured 1.5 x 2.0 x 0.1cm -Dressing; painted with betadine, covered with pink polymem, tape. -Left dorsal foot ulcer, wound Debrided with a sterile curette sharply, excisionally through skin into the subcu layer. Fibrotic tissue was removed. Good bleeding was noted. Granular base was noted. Post debridement the wound measured 3.0 x3.0 x 0.1 cm. -Dressing; painted with betadine, covered clear tegaderm. -Dressings kept light due to xrays and TWIN testing that he will need to obtain this morning. Neuro: Present Motor Function Intact, Sensory Function Intact, alert, oriented x 3 and tone normal Comment:: Patient noted dull sensation to top of feet and toes and plantar surface with monofilament. He could tell I was touching him, but could not make out that it was a sharp sensation. Ankle: right: swelling (Trace Right medial ulcer edema ) and right: wound (RIght medial ankle ulcer, Left dorsal foot ulcer.) Feet/Toes: bilateral: erythema (discolored b/l lower legs; PVD), bilateral: hammer toe, bilateral: nail abnormalities (Nails were long, thick and curved from very long length ), bilateral: Ingrown Toenail (incurvated nails ), bilateral: onychomycosis (suspected; yellow in color, crumbly when trimmed. ), bilateral: tenderness (Nails tender when trimmed due to length) and bilateral: wound (Right medial ankle, left dorsal foot wounds) Feet Top:  1. Right medial ankle wound measuring 1.5 x 2.0 x 0.1 cm, no drainage noted granular wound bed. 2. Left dorsal foot wound measuring 3.0 x 3.0 x 0.1 cm, fibrotic slough. Wound culture obtained, no active drainage. Inspection: Present foot deformity deformity: Present hammer toes, nail disorder, skin break and ulceration (Right medial ankle wound, Left dorsal foot wound) Pulses: L dorsalis pedis pulse: normal, R dorsalis pedis pulse: normal, L posterior tibial pulse: diminished (Present but decreased ) and R posterior tibial pulse: diminished (Present but decreased ) CFT: normal: CFT Monofilament exam: L 1st metatarsals: decreased (Sensation noted but was dull ), L 3rd metatarsals: decreased, L 5th metatarsals: decreased, L great toe: decreased, L 3rd toe: decreased, L 5th toe: decreased, R 1st metatarsals: decreased, R 3rd metatarsals: decreased, R 5th metatarsals: decreased, R great toe: decreased, R 3rd toe: decreased and R 5th toe: decreased Pinprick: L great toe: abnormal and R great toe: abnormal Ankle reflex: Left: abnormal and Right: abnormal Results Labs 11/17/24 05:03 11/17/24 08:20 Labs: Abnormal lab results 11/16/24 11/17/24 11/17/24 Range/Units 22:32 01:51 05:03 RBC 3.02 L 2.56 L (4.60-6.20) M/mm3 Hgb 9.6 L 8.0 L D (14.1-18.0) g/dL Hct 29.8 L 25.3 L (42.0-52.0) % MCV 98.7 H 98.8 H (80-94) fl MCH 31.8 H 31.3 H (27.0-31.2) pg MCHC 31.6 L (31.8-35.4) g/dL Neutrophils % (Manual) 80 H (42-76) % ESR 132 H (0-15) mm/hr PT 13.0 H (10.1-12.5) seconds INR 1.19 H (0.9-1.1) Sodium 134 L (136-145) mmol/L Potassium 3.3 L (3.5-5.1) mmoL/L Chloride 95 L (98-107) mmol/L Glucose 156 H (74-100) mg/dl Calcium 8.3 L (8.4-10.2) mg/dl Troponin I 0.15 H 0.23 H 0.27 H (0.00-0.034) ng/ml C-Reactive Protein 148.0 H (0-4) mg/L NT-Pro-B Natriuret Pep 7450 H (0-125) pg/mL H & H 11/16/24 11/17/24 Range/Units 22:32 05:03 Hgb 9.6 L 8.0 L D (14.1-18.0) g/dL Hct 29.8 L 25.3 L (42.0-52.0) % Coagulation 11/16/24 Range/Units 22:32 INR 1.19 H (0.9-1.1) All other labs normal. Assessment and Plan *Assessment and plan (1) Peripheral vascular disease of foot: Status: Acute Category: Medical Code(s): I73.9 - Peripheral vascular disease, unspecified (2) Foot ulcer, right: Status: Acute Qualifiers: Non-pressure ulcer stage: with other severity Qualified Code(s): L97.518 - Non-pressure chronic ulcer of other part of right foot with other specified severity Category: Medical Code(s): L97.519 - Non-pressure chronic ulcer of other part of right foot with unspecified severity (3) Supplemental oxygen dependent: Status: Acute Category: Medical Code(s): Z99.81 - Dependence on supplemental oxygen (4) Wound of right ankle: Status: Acute Qualifiers: Encounter type: initial encounter Qualified Code(s): S91.001A - Unspecified open wound, right ankle, initial encounter Category: Medical Code(s): S91.001A - Unspecified open wound, right ankle, initial encounter (5) Wound of left foot: Status: Acute Category: Medical Code(s): S91.302A - Unspecified open wound, left foot, initial encounter (6) Onychodystrophy: Status: Acute Category: Medical Code(s): L60.3 - Nail dystrophy (7) Keratosis: Status: Acute Category: Medical Code(s): L57.0 - Actinic keratosis (8) Onychomycosis: Status: Acute Category: Medical Code(s): B35.1 - Tinea unguium (9) Acquired hammer toes of both feet: Status: Acute Category: Medical Code(s): M20.41 - Other hammer toe(s) (acquired), right foot; M20.42 - Other hammer toe(s) (acquired), left foot (10) Decreased sensation of lower extremity: Status: Acute Category: Medical Code(s): R20.8 - Other disturbances of skin sensation Plan 11/17/24 Podiatry consult -Patient made NPO until after our consult, but patient also needing x-rays of abdomen and other testing will allow hospitalist to determine if patient is to have a diet this morning. - No surgical plans per the podiatry standpoint - Wound culture obtained from left dorsal foot wound - Bilateral foot x-rays 3 view weightbearing ordered - Bilateral ABIs to be obtained this morning -Wounds to bilateral feet were cleaned and debrided see above assessment - Wounds were lightly dressed to accommodate for testing this morning - Podiatry will continue to follow - All orders per Dr. Bhatt
--- NOTE | 2024-11-17 07:06 | XR_ITS ---
FINAL REPORT CLINICAL HISTORY: b/l foot DFU COMPARISON: 12/17/2020 FINDINGS: Three views of the right foot show no evidence of acute displaced fracture or dislocation of the visualized bony architecture. There are minimal scattered degenerative changes. IMPRESSION: Degenerative changes without acute findings, no significant change from the previous exam. Reviewed, Interpreted and Dictated by Lesly Jean Baptiste MD Transcribed by Megha Cheung Authenticated and [facility]
--- NOTE | 2024-11-17 07:06 | XR_ITS ---
FINAL REPORT CLINICAL HISTORY: B/L foot DFU, COMPARISON: 12/17/2020 FINDINGS: Three views of the left foot show no evidence of acute displaced fracture or dislocation of the visualized bony architecture. There are mild scattered degenerative changes. No evidence of bony destruction. No gas is seen in the soft tissues. No radiopaque foreign body identified. Of note, 1 of the images is labeled right although this clearly represents the left foot. IMPRESSION: Mild degenerative changes without acute findings. Reviewed, Interpreted and Dictated by Lesly Jean Baptiste MD Transcribed by Megha Cheung Authenticated and [facility]
--- NOTE | 2024-11-17 07:13 | US_ITS ---
FINAL REPORT TECHNIQUE: Multiple transverse and longitudinal images CLINICAL HISTORY: eval liver parenchyma, mass? COMPARISON: None FINDINGS: Status post cholecystectomy. No biliary ductal dilatation is appreciated. No fluid collections are seen. The liver is homogeneous. Limited portions of the right kidney are unremarkable. Pancreas is largely obscured. Small incidental right pleural effusion. IMPRESSION: Status post cholecystectomy. Otherwise unremarkable exam. Reviewed, Interpreted and Dictated by Lesly Jean Baptiste MD Transcribed by Megha Cheung Authenticated and [facility]
--- OUTSIDE RECORDS SUMMARY | 2024-11-17 07:42 | XMS_ITS | Patient Health Record ---
Author Organization [id number] [facility] Address [address] [place], [place] [id number] Support Name Relationship Address Phone guy barrera Emergency Contact Unknown [phone] Fili Barrera Guarantor Unknown [phone] Reason For Referral No Information Medications Medication [...] Coverage End Date [employer]MO [address] [place], [place] [id number] Fili Mejias Self - patient is the insured 7
--- OUTSIDE RECORDS SUMMARY | 2024-11-17 07:42 | XMS_ITS | Clinical Summary ---
Author Organization [facility] Address [address] [place] [address] Care Team Providers Care Impression Printer Name Role Phone Janell Cheung APRN Primary Care Provider [phone] Allergies Active Allergy Reactions Criticality Noted Date [...] to complete this topic Insurance Care Teams Impression Printer Relationship Specialty Start Date End Date Janell Cheung APRN [address] [place] [address] PCP - General Family Medicine 03/13/16
--- NOTE | 2024-11-17 07:54 | XR_ITS ---
FINAL REPORT CLINICAL HISTORY: R ankle wound, r/o OM COMPARISON: None FINDINGS: Three views of the right ankle show no evidence of acute displaced fracture or dislocation of the visualized bony architecture. The joint spaces appear normal. IMPRESSION: Unremarkable exam. Reviewed, Interpreted and Dictated by Lesly Jean Baptiste MD Transcribed by Megha Cheung Authenticated and . [facility]
--- NOTE | 2024-11-17 07:55 | US_ITS ---
FINAL REPORT CLINICAL HISTORY: PVD, arterial ulcers, open wounds, PVD, HTN, HLD, CAD, CARDIAC STENTS, SMOKER, COPD FINDINGS: LOWER EXTREMITY SEGMENTAL PRESSURE MEASUREMENTS FINDINGS: Pressure indices are as follows: RIGHT LOWER EXTREMITY: Thigh: 1.10 Calf: 1.10 Ankle, posterior tibial artery: 1.06 Ankle, dorsalis pedis: 1.02 Toe: 1.10 TWIN: 1.06 Comments: Within normal limits LEFT LOWER EXTREMITY: Thigh: 1.13 Calf: 1.07 Ankle, posterior tibial artery: 0.99 Ankle, dorsalis pedis: 1.10 Toe: 0.90 TWIN: 1.10 Comments: Within normal limits IMPRESSION: No evidence of peripheral vascular disease in the bilateral lower extremities. Reviewed, Interpreted and Dictated by Lesly Jean Baptiste MD Transcribed by Megha Cheung Authenticated and [facility]
--- NOTE | 2024-11-17 08:36 | CA_ITS ---
APPROVED REPORT EXAM: Comprehensive 2D, Doppler, and color-flow Echocardiogram Turnstile Attendant: Sherri Stokes CRT Ht: 8 ft 8 in Wt: 207lbs BSA: 2.82 BP: 109/58 mmHg Indications: COPD, Hyperlipidemia, Hypertension/HDD, smoker 2D Dimensions LA Volume 41.50 mL LA Volume Index 19.60 mL/m2 (M/F) 16-34 M-Mode Dimensions RVDd 2.58 cm (0.9-2.6) LA Diam 4.16 cm (1.9-4.0) LVDd 5.36 cm (3.5-5.7) LVDs 3.88 cm (3.5-5.7) IVSd 1.33 cm (0.6-1.1) PWd 0.72 cm (0.6-1.1) EF (Teich) 53.10% FS 27.60% EDV (Teich) 138.90 mL ESV (Teich) 65.10 mL LV Diastology E Decel Time 317 (160-240 msec) E/A Ratio 1.12 MED A' 11.00 cm/s LAT A' 9.70 cm/s Aortic Valve DERIC Index 1.55 cm2/m2 AoV Peak Kurt. 174.0 (50-130 cm/s) AO Peak GR. 12.10 mmHg AO Mean GR. 5.50 (<5 mmHg) AO VTI 30.1 (18-25 cm) DERIC (VTI) 3.28 (2.5-4.5 cm2) Mitral Valve MV A Velocity 98.0 (40-130 cm/s) E/A Ratio 1.12 Pulmonary Valve PV Peak Velocity 158.0 (50-150 cm/s) Tricuspid Valve TR P. Velocity 291.00 cm/s RAP Estimate 10.00 mmHg RVSP 44.00 mmHg Left Ventricle The left ventricle is normal size. Left ventricular systolic function is normal. The left ventricular ejection fraction is within the normal range. There is normal left ventricular wall thickness. There is normal LV segmental wall motion. The left ventricular diastolic function is normal. LVEF is 55% Right Ventricle The right ventricle is borderline dilated. The right ventricular systolic function is normal. Atria The left atrium is mildly dilated. The right atrium is mildly dilated. There is no color Doppler evidence of interatrial shunt. Aortic Valve The aortic valve opens well. There is no hemodynamically significant aortic valvular stenosis. No aortic regurgitation is present. Mitral Valve The mitral valve is normal in structure. No evidence of mitral valve stenosis. Mild mitral regurgitation is present. Tricuspid Valve The tricuspid valve leaflets are thin and pliable. Mild tricuspid regurgitation. RVSP is 30-35 mmHg. Pulmonic Valve The pulmonary valve is grossly normal in structure. Trace pulmonic valve regurgitation is present. Great Vessels The aortic root is normal in size. IVC is normal in size and collapses >50% with inspiration. Pericardium There is no pericardial effusion. Other Information Study Quality: Fair Conclusion Normal biventricular systolic function. Borderline RV dilation. Mild biatrial dilation. Mild MR. Electronically signed by : Radha Lorenzo MD 11/17/2024 13:52:00
[2024-11-17 08:39] LABS: Albumin Level 3.4 g/dl (3.5-5.0); Chloride 94 mmol/L (98-107)
[2024-11-17 08:40] LABS: Potassium 3.4 mmoL/L (3.5-5.1); Sodium 135 mmol/L (136-145)
[2024-11-17 08:42] LABS: Alanine Aminotransferase 8 U/L (12-78); Anion Gap 8.4 mEq/L (5-15); Aspartate Amino Transferase 15 U/L (17-59); Bilirubin,Total 0.9 mg/dl (0.2-1.3); Blood Urea Nitrogen 11 mg/dl (9-20); Carbon Dioxide 36 mmol/L (22.0-30.0); Creatinine Clearance Estimated 121 mL/min (50-200); Creatinine,Serum 1.00 mg/dl (0.66-1.25); Estimated Glomerular Filt Rate 80 ml/min (>60); GFR (African American) 97 ML/MIN (>60)
[2024-11-17 08:43] LABS: Albumin/Globulin Ratio 1.2 (1.1-1.8); Alkaline Phosphatase 106 U/L (38-126); Calcium 8.1 mg/dl (8.4-10.2); Globulin 2.8 g/dL (1.3-3.2); Glucose 115 mg/dl (74-100); Total Protein,Serum 6.2 g/dl (6.3-8.2)
--- NOTE | 2024-11-17 09:04 | HMH.PHAINT1 ---
Pharmacy Intervention Comments: home medication list verified using list from outpatient pharmacy and pt interview
[2024-11-17 09:08] LABS: Troponin I 0.30 ng/ml (0.00-0.034)
--- NOTE | 2024-11-17 09:42 | HMH.PTEV ---
Physical Therapy Evaluation Rehab PT IP Evaluation Start: 11/17/24 09:00 Freq: ONCE Status: Active Protocol: Document 11/17/24 09:32 CALVIN (Rec: 11/17/24 09:39 CALVIN [id number]) Subjective/History History History Per H&P: Mr. Barrera 49-year-old male who has been a long-term smoker, has had a fever for approximately 2 days. He has come to the emergency room with significant decreased saturations on room air and had to be placed on oxygen. Since he has been here has received several breathing treatments but oxygen saturations will go from 85% to 94% depending on how much she is talking.. He shows no signs of distress heart rate remains the same and respiratory rate does not come up and he does not have a cough. Chest x-ray shows a probable right lower lobe pneumonia . Due to an allergy to Keflex ER provider talked to the patient and he has been placed on Levaquin even though it does show an allergy to Cipro. Per the patient and per his chart he has taken this before Patient has an extensive past medical history that has some concerning factors. Patient presently uses a rolling walker due to a back problem that leaves him bent forward. History of 2 back surgeries and a broken broken pelvis in the past. Patient also has extensive documentation for foot wounds and hammertoes. Noting that he is seeing podiatry often. Other concerning feature is his hemoglobin is down slightly in the past in 2021 the patient's hemoglobin got to 6.9 required iron replacements noting splenomegaly and also a liver mass that per my chart has not been evaluated lately. Will get with the patient to find any more history or whether we do need to work this up. Also noting extensively high parathyroid hormone low testosterone and elevated blood sugars but no history of hemoglobin A1c being done. In the emergency room at this time the patient is stable except for dropping his saturations to 85% at times. But I do feel he needs to be admitted to continue with pulmonary toileting IV antibiotics as needed and to evaluate this accumulation of fluid in the right lung and/a history of a liver mass to make sure that this is not a neoplasm. Will consult pulmonary and and with his history of cardiac problems we will also consult cardiology to evaluate him. Added3:40 after patient been in the room. Was able to convince the patient to take his socks off and pull up his pants please note that significant peripheral vascular disease with thickening of the skin that was not highlighted in past notes. Do note that the patient had basically been seeing the finance associate in the past for nathalie. But the patient says it has been a long time and from the length of the toenails I can see that he is telling the truth he had the same podiatry in a long time. Definitely a source of infection open wounds to the lower feet. Patient states he has been taking his Suboxone on a regular basis and not using illegal drugs since 2018 Subjective Subjective PLOF: IND with all mobility using a rollator. Still driving some. Denies any falls in past 6 months. Not on supplemental O2 at home. HOME: Lives with his mother in a single-story home with ramped entrance. New diagnosis of No cancer in past 12 months? [facility] How much help from another person do you currently need... Turning from your None back to your side while in a flat bed without using bedrails? Moving from lying on None back to sitting on the side of a flat bed without using bedrails? Moving to and from a None bed to a chair ( including a wheelchair)? Standing up from a None chair using your arms? (e.g., wheelchair, bedside chair) Walking in hospital None room? Climbing 3-5 steps A little with a railing? Mobility Score 23 Mobility Level [facility] Mobility 7 Walk 25 feet or more Mobility Calculator Rehab PT IP Eval Objective Appearance Patient Behavior Appropriate,Cooperative Patient Orientation Person,Place Difficulty following none instructions Speech Pattern Clear Ambulation Patient Able to Yes Ambulate Ambulation Observation IP General Gait No Deviations/Normal Pattern Observation Ambulation Assistive Rolling Walker Device Ambulation Ability Independent Balance Ability to Arise Able, uses arms to help Sitting Balance Steady, safe Standing Balance Steady, wide stance Dynamic Sitting Good Balance Ability Dynamic Standing Good Balance Ability Transfers Bed Transfer Ability Independent Chair Transfer Independent Ability Sit to Stand Bed Independent Transfer Ability Rehab PT IP prob,goals,plan Problems Date of Evaluation: 11/17/24 Rehab Potential Rehab Potential Innapropriate for Skilled Therapy Discharge Plan PT Discharge Plan Pt most appropriate to d/c home when deemed medically necessary d/t current level of mobility, home set-up, and family support. Pt not appropriate for skilled acute care PT at this time d/t pt?s mobility being at baseline. Eval Complexity Eval Charge Codes 06565 - Moderate Complexity PHYSICIAN CERTIFICATION: I certify the specified therapy services for Fili Barrera are required, authorized, and reviewed every 30 days.
--- NOTE | 2024-11-17 09:42 | EXP.PULM.CON ---
History of Present Illness History of present illness: Mr. Barrera is a 49-year-old male greater than 30 PPD, COPD on triple inhaler therapy, history of sleep apnea with AHI of 39 presented today with worsening respiratory distress low oxygen saturations and pulmonary was called for further evaluation and management. [facility] Disclaimer: The information contained in this section may have been updated after the patient was seen, as this information can be updated by other users. Medical History (Updated 11/17/24 @ 13:23 by Cristina Thompson MD) Acute and chronic respiratory failure with hypoxia Peripheral vascular disease of foot Mixed hyperlipidemia COPD mixed type Hypothyroidism Hyperparathyroidism History of hypokalemia Tobacco abuse disorder Tobacco abuse counseling Hilar lymphadenopathy Mediastinal lymphadenopathy Screening for lung cancer COPD (chronic obstructive pulmonary disease) Smoking greater than 30 pack years Dyspnea on exertion MRSA (methicillin resistant Staphylococcus aureus) Arthritis CHF (congestive heart failure) PVD (peripheral vascular disease) PAD (peripheral artery disease) Myocardial infarction Hyperlipidemia Hypertension CAD (coronary artery disease) Atherosclerosis History of anemia Edema of both lower extremities 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 Insomnia Edema Surgical History Hx of neck surgery History of back surgery History of esophagogastroduodenoscopy (EGD) History of coronary artery stent placement Hx of cholecystectomy History of cardiac cath History of appendectomy History of colonoscopy Family History Father Cancer Mother Cancer Other Alcoholism Coronary artery disease Diabetes Heart attack Hyperlipidemia Hypertension Kidney disease Social History (Updated 11/17/24 @ 01:49 by Margarita Clement RN) Smoking Status: Current every day smoker tobacco type: cigarettes packs per day: 1 alcohol intake: former year quit: soci substance use type: former substance user and painkillers current occupational status: disabled Travel in the last 8 weeks?: None adopted: No caregiver/support person: No foster care: No household members: family housing: house lives independently: Yes marital status: education level: high school current occupational exposures/hazards: No caffeine: Yes special bety needs: No agree to transfusion: No do you feel safe at home: Yes victim of physical abuse: No victim of emotional abuse: No victim of sexual abuse: No would you like helpful sources: No Have you lived/traveled outside [place] in past 30 days?: No Contact w/someone who lives/traveled outside [place] past 30 days?: No Exposure to someone with infectious disease in past 14 days?: No Do you have a fever (greater than 100.4 F or 38 C)?: No Have you tested positive for COVID-19?: No Exposed to someone with COVID-19 in past 14 days?: No Do you have a sore throat?: No Do you have a cough?: No Do you have any weakness?: No Are you experiencing any nausea/vomitting?: No Do you have any diarrhea?: No Are you experiencing any unusual bleeding?: No Do you have any muscle aches/pain?: No Do you have any abdominal pain?: No Are you experiencing loss of taste or smell?: No Review of Systems Constitutional Constitutional: Reports anorexia, Denies body ache(s) and Reports fatigue Eyes Eyes: Denies eye discharge, Denies dry eyes, Denies irritation and Denies itchy eyes ENT Ears, Nose, Mouth, and Throat: Denies epistaxis, Denies facial pain, Denies lip swelling and Denies throat swelling *Cardiovascular Cardiovascular: Reports dyspnea, Reports dyspnea on exertion and Reports leg edema *Respiratory Respiratory: Denies change in phlegm color, Reports chest congestion, Reports cough, Reports dyspnea, Reports dyspnea on exertion, Denies excessive phlegm production, Denies hemoptysis, Denies pain on inspiration, Denies pain with cough and Denies wheezing *Gastrointestinal Gastrointestinal: Denies abdominal pain, Denies belching and Denies cramping *Musculoskeletal Musculoskeletal: Reports back pain, Reports myalgias and Reports other (No small joint swelling or Pain) *Neurologic Neurologic: Reports as per HPI Psychiatric Psychiatric: Denies homicidal ideation and Denies suicidal ideation Endocrine Endocrine: Reports fatigue and Denies heat intolerance Hematologic/Lymphatic Hematologic/Lymphatic: Denies easy bleeding and Denies lymphadenopathy Allergic/Immunologic Allergic/Immunologic: Denies itchy eyes, Denies lip swelling, Denies throat swelling and Denies wheezing Pulmonology Exam Inpatient Vital signs and Labs for Last 24 Hours: Temp Pulse Resp BP Pulse Ox O2 Del Method O2 Flow Rate 98.3 F 77 18 106/46 L 97 Nasal Cannula 4 11/17/24 04:00 11/17/24 04:00 11/17/24 04:00 11/17/24 04:00 11/17/24 04:00 11/17/24 08:25 11/17/24 08:25 Laboratory Results - last 24 hr 11/16/24 22:32: WBC 7.2, RBC 3.02 L, Hgb 9.6 L, Hct 29.8 L, MCV 98.7 H, MCH 31.8 H, MCHC 32.2, RDW 14.7, Plt Count 205, MPV 8.7, Neut % (Auto) 79.0, Lymph % (Auto) 14.9, [place] % (Auto) 4.8, Eos % (Auto) 0.4, Baso % (Auto) 0.6, Neut # (Auto) 5.7, Lymph # (Auto) 1.1, [place] # (Auto) 0.4, Eos # (Auto) 0.0, Baso # (Auto) 0.0, PT 13.0 H, INR 1.19 H, Sodium 134 L, Potassium 3.3 L, Chloride 95 L, Carbon Dioxide 30, Anion Gap 12.3, BUN 13, Creatinine 1.00, Estimated Creat Clear 124, Estimated GFR 80, Est GFR ( Amer) 97, Glucose 156 H, Calcium 8.3 L, Total Bilirubin 1.2, AST 20, ALT 14, Alkaline Phosphatase 121, Troponin I 0.15 H, C-Reactive Protein 148.0 H, NT-Pro-B Natriuret Pep 7450 H, Total Protein 7.0, Albumin 3.9, Globulin 3.1, Albumin/Globulin Ratio 1.3 11/16/24 22:44: Chlamy pneumoniae PCR Not detected, Adenovirus (PCR) Not detected, B. pertussis DNA (PCR) Not detected, Coronavirus OC43 (PCR) Not detected, Coronavirus HKU1 (PCR) Not detected, Coronavirus 229E (PCR) Not detected, SARS-CoV-2 (PCR) Not detected, Coronavirus NL63 (PCR) Not detected, Human Metapneumovir PCR Not detected, Influenza A (H1) PCR Not detected, Influ A (H1N1/09) PCR Not detected, Influenza A (H3) PCR Not detected, Influenza Type A (PCR) Not detected, Influenza Type B (PCR) Not detected, M. pneumoniae (PCR) Not detected, Parainfluenza 1 (PCR) Not detected, Parainfluenza 2 (PCR) Not detected, Parainfluenza 3 (PCR) Not detected, Parainfluenza 4 (PCR) Not detected, RSV (PCR) Not detected, Entero/Rhino (PCR) Not detected 11/17/24 01:51: Troponin I 0.23 H 11/17/24 05:03: WBC 5.7, RBC 2.56 L, Hgb 8.0 L D, Hct 25.3 L, MCV 98.8 H, MCH 31.3 H, MCHC 31.6 L, RDW 14.6, Plt Count 158, MPV 8.6, Neut % (Auto) 75.7, Lymph % (Auto) 17.2, [place] % (Auto) 6.1, Eos % (Auto) 0.2, Baso % (Auto) 0.4, Neut # (Auto) 4.3, Lymph # (Auto) 1.0, [place] # (Auto) 0.4, Eos # (Auto) 0.0, Baso # (Auto) 0.0, Total Counted 100, Neutrophils % (Manual) 80 H, Lymphocytes % (Manual) 13, Monocytes % (Manual) 7, ESR 132 H, Hemoglobin A1c 5.3, Troponin I 0.27 H 11/17/24 08:20: Sodium 135 L, Potassium 3.4 L, Chloride 94 L, Carbon Dioxide 36 H, Anion Gap 8.4, BUN 11, Creatinine 1.00, Estimated Creat Clear 121, Estimated GFR 80, Est GFR ( Amer) 97, Glucose 115 H D, Calcium 8.1 L, Total Bilirubin 0.9, AST 15 L, ALT 8 L D, Alkaline Phosphatase 106, Troponin I 0.30 H, Total Protein 6.2 L, Albumin 3.4 L D, Globulin 2.8, Albumin/Globulin Ratio 1.2 I & O for Labs for Last 24 Hours: Intake & Output 11/14/24 11/15/24 11/16/24 11/17/24 23:59 23:59 23:59 23:59 Output Total 1415 / 1415 Balance -1415 / -1415 Weight 212 lb 207 lb 6.01 oz Constitutional: Present moderate distress Head: Present normocephalic and atraumatic ENT: Present normal exam, normal oropharynx and mucous membranes moist Neck: Present normal inspection and full ROM Respiratory: Present respiratory distress, crackles, diminished air movement, normal respiratory effort and able to speak in complete sentences; Absent prolonged expiratory phase or wheezes Cardiac: Present S1/S2, Tachycardia and radial pulses present GI: Present soft and distention; Absent tenderness or guarding Skin: Absent intact, cyanosis or jaundice Neuro: Present alert, awake and oriented x 3 Extremities: Present normal inspection and edema; Absent normal capillary refill, clubbing or cyanosis Psychiatric: Present normal affect and cooperative Meds Home Medications and Allergies Home Medications ?Medication ?Instructions ?Recorded ?Confirmed ?Type aspirin 81 mg tablet,delayed 81 mg PO DAILY 05/05/18 11/17/24 History release buprenorphine 8 mg-naloxone 2 mg 2 tab sublingual DAILY addiction 06/21/18 11/17/24 History sublingual tablet ergocalciferol (vitamin D2) 1,250 1,250 mcg PO WEEKLY #9 caps 10/31/23 11/17/24 Rx mcg (50,000 unit) capsule umeclidinium 62.5 mcg-vilanterol 1 inh inhalation DAILY 90 days 02/18/24 11/17/24 Rx 25 mcg/actuation powdr for #180 ea inhalation (Anoro Ellipta) furosemide 40 mg tablet 40 mg PO DAILY PRN Edema 11/17/24 11/17/24 History ipratropium 20 mcg-albuterol 100 2 puff inhalation BID 11/17/24 11/17/24 History mcg/actuation mist for inhalation (Combivent Respimat) levothyroxine 25 mcg tablet 25 mcg PO DAILY 11/17/24 11/17/24 History meclizine 25 mg tablet 25 mg PO DAILY PRN Dizziness 11/17/24 11/17/24 History omeprazole 20 mg capsule,delayed 20 mg PO DAILY 11/17/24 11/17/24 History release promethazine 25 mg tablet 25 mg PO Q8HP PRN Nausea And 11/17/24 11/17/24 History Vomiting venlafaxine 150 mg 150 mg PO DAILY 11/17/24 11/17/24 History capsule,extended release 24 hr venlafaxine 75 mg capsule,extended 75 mg PO DAILY 11/17/24 11/17/24 History release 24 hr New Prescriptions to Start Prescriptions: Allergies Allergy/AdvReac Type Severity Reaction Status Date / Time cephalexin (From Keflex) Allergy Verified 10/28/24 09:59 ciprofloxacin (From Cipro) Allergy Verified 10/28/24 09:59 tramadol Allergy Verified 10/28/24 09:59 Results Laboratory Findings 11/17/24 05:03 11/17/24 08:20 PT/INR, D-dimer PT 13.0 seconds (10.1-12.5) H 11/16/24 22:32 INR 1.19 (0.9-1.1) H 11/16/24 22:32 Abnormal lab findings: Abnormal Labs 11/16/24 11/17/24 11/17/24 22:32 01:51 05:03 RBC 3.02 L 2.56 L Hgb 9.6 L 8.0 L D Hct 29.8 L 25.3 L MCV 98.7 H 98.8 H MCH 31.8 H 31.3 H MCHC 31.6 L Neutrophils % (Manual) 80 H ESR 132 H PT 13.0 H INR 1.19 H Sodium 134 L Potassium 3.3 L Chloride 95 L Carbon Dioxide Glucose 156 H Calcium 8.3 L AST ALT Troponin I 0.15 H 0.23 H 0.27 H C-Reactive Protein 148.0 H NT-Pro-B Natriuret Pep 7450 H Total Protein Albumin 11/17/24 08:20 RBC Hgb Hct MCV MCH MCHC Neutrophils % (Manual) ESR PT INR Sodium 135 L Potassium 3.4 L Chloride 94 L Carbon Dioxide 36 H Glucose 115 H D Calcium 8.1 L AST 15 L ALT 8 L D Troponin I 0.30 H C-Reactive Protein NT-Pro-B Natriuret Pep Total Protein 6.2 L Albumin 3.4 L D Assessment and Plan *Assessment and plan (1) Pneumonia: Status: Acute Qualifiers: Laterality: right Lung location: lower lobe of lung Pneumonia type: due to unspecified organism Qualified Code(s): J18.9 - Pneumonia, unspecified organism Category: Medical Code(s): J18.9 - Pneumonia, unspecified organism (2) Acute and chronic respiratory failure with hypoxia: Status: Acute Category: Medical Code(s): J96.21 - Acute and chronic respiratory failure with hypoxia (3) Bilateral pleural effusion: Status: Acute Category: Medical Code(s): J90 - Pleural effusion, not elsewhere classified Plan Mr. Barrera is a 49-year-old male greater than 30 PPD, COPD on triple inhaler therapy, history of sleep apnea with AHI of 39 presented today with worsening respiratory distress low oxygen saturations and pulmonary was called for further evaluation and management. Continue to smoke, no smoking close to 1 pack a day. Using Anoro on as-needed basis and Combivent on a scheduled basis. Counseled on the right use of his inhaler therapy at baseline for Afebrile. Hemodynamically stable no evidence of leukocytosis. Low hemoglobin noted. Comprehensive respiratory viral PCR panel negative. Echo from 2021 enlarged RV with septal flattening and elevated RVSP calculated at 76 mmHg concerning for severe volume overload CTA upon admission no pulmonary embolism. Bilateral pleural effusions small left and moderate right pleural effusion with adjacent atelectasis and pneumonia. Mediastinal and right hilar lymphadenopathy also appreciated. Currently receiving diuretics and antibiotics, levofloxacin. On examination no significant wheezing noted. Bilateral clear breath sounds with no wheezing except for decreased breath sounds in bilateral lower lung park. Plan: Continue Anoro inhaler along with Combivent 4 times daily as needed Continue oxygen supplementation to maintain O2 saturation above 90% and above, continue to wean as tolerated. Continue levofloxacin pending final culture results. Volume Optimization as per primary team and cardiology Pending echocardiogram and lower extremity arterial Doppler # Thank you for involving pulmonary in this patient care. Will continue to follow-up
--- NOTE | 2024-11-17 09:50 | HMH.PTWOUND ---
Rehab Inpt Wound Evaluation Rehab IP Wound Evaluation Start: 11/17/24 03:32 Freq: ONCE Status: Active Protocol: Document 11/17/24 09:43 MARCO (Rec: 11/17/24 09:50 [email or web address] [id number]) Rehab PT Wound Assessment Subjective Subjective 49-year-old male who has been a long-term smoker, has had a fever for approximately 2 days. He has come to the emergency room with significant decreased saturations on room air and had to be placed on oxygen. Since he has been here has received several breathing treatments but oxygen saturations will go from 85% to 94% depending on how much she is talking.. He shows no signs of distress heart rate remains the same and respiratory rate does not come up and he does not have a cough. Chest x-ray shows a probable right lower lobe pneumonia . Due to an allergy to Keflex ER provider talked to the patient and he has been placed on Levaquin even though it does show an allergy to Cipro. Per the patient and per his chart he has taken this before Patient has an extensive past medical history that has some concerning factors. Patient presently uses a rolling walker due to a back problem that leaves him bent forward. History of 2 back surgeries and a broken broken pelvis in the past. Patient also has extensive documentation for foot wounds and hammertoes. Noting that he is seeing podiatry often. Other concerning feature is his hemoglobin is down slightly in the past in 2021 the patient's hemoglobin got to 6.9 required iron replacements noting splenomegaly and also a liver mass that per my chart has not been evaluated lately. Will get with the patient to find any more history or whether we do need to work this up. Also noting extensively high parathyroid hormone low testosterone and elevated blood sugars but no history of hemoglobin A1c being done. Pt presents upon adm with B foot wounds that are chronic. Wound Left Anterior Foot Wound Type chronic wound of unsure etiology Is This a Chronic Yes Wound Wound Length (cm) 2.0 Wound Width (cm) 2.5 Wound Depth (cm) 0.1 Wound Bed Appearance Dusky Red,White Wound Margins Well Defined Description Primary Dressing Composite Dressing Change Tolerated Well Patient Tolerance Right Medial Ankle Wound Type chronic wound of unsure etiology Is This a Chronic Yes Wound Wound Length (cm) 1.8 Wound Width (cm) 1.0 Wound Depth (cm) 0.1 Wound Bed Appearance Dusky Red Wound Margins Well Defined Description Wound Drainage Serosanguineous Description Drainage Amount Scant Drainage Odor No Odor Primary Dressing Composite Comment polymem 2x2 Dressing Change Tolerated Well Patient Tolerance Plan/Recommendation Comment B VI present with severe discoloration, unsure of the etiology of hemosiderin staining vs PAD, and severe hyperkeratosis from B ankle distally. These are chronic conditions for which he has been treated in the outpatient wound clinic in the past. Currently no edema noted. TWIN just completed and will await results. No current need for wound debridement and nsg staff is treating all wounds appropriately. Will follow for wound care assist if necessary. Eval Complexity Eval Charge Codes 29267 - High Complexity PHYSICIAN CERTIFICATION: I certify the specified therapy services for Fili Barrera are required, authorized, and reviewed every 30 days.
--- NOTE | 2024-11-17 10:00 | SW/DCPLANNER ---
Per PT no needs at this time.
[2024-11-17] MEDS: FUROSEMIDE 40MG/4ML VIAL 40 MG IV ×2 (12:20→16:59)
[2024-11-17] MEDS: BUPRENORPHINE/NALOXONE 8MG/2MG ODT 1 EACH SL ×2 (12:21→20:52)
[2024-11-17] MEDS: SODIUM CHLORIDE 3% 15ML NEB 3 ML IH (12:57)
[2024-11-17] MEDS: UMECLIDINIUM/VILANTEROL 62.5/25MCG INHALER 1 PUFF IH (13:24)
--- NOTE | 2024-11-17 13:26 | P.CONCA_ITS ---
History of Present Illness History of Present Illness Consult date: 11/17/24 Requesting physician: Jono Durán Chief complaint: fever, nausea Additional Medical History:: 1. CAD is present and likely stable. -Medical management of mild disease with patent LAD and RCA stents in 06/2021. -Hx of DEWAYNE. -DAPT with ASA 2. HTN -Echo, 2021, EF 55% with flattening of the IVS during systole and diastole c onsistent with pressure and volume overload on right ventricle. Moderate enlargement of RA and RV with moderate reduction of contractility of the RV. Trace MR, mild TR, RVSP 76 mmHg. 3. Moderate pulmonary artery hypertension consistent with group 2 and stems from diastolic heart failure, stable. RHC, 2021. -follows with Dr. Thompson 4. Diastolic heart failure, stable. Follows Pulmonary. 5. Leukemia/Lymphoma, possibly in remission -Previously saw Oncology ([place] and then [place]) 6. Hyperlipidemia LDL goal is less than 55.? His LDL 65(2023)? On a statin. 7. Tobacco abuse present Tobacco cessation advised and counseled. 8. Low Testosterone, both total and free 9. Hyperparathyroidism with prior low calcium and Vitamin D -on replacement Vit D 10. Suboxone use -Clean since 2018 11. History of back surgery x 2 with chronic discomfort and inability to stand straight. 12. Dizziness -Head CTA, 09/2024, no acute hemorrhage or infarct. -Head CT, 09/2024, atrophy with no acute process. -Neck CTA, 09/2024, no significant stenosis of the carotid arteries. History of present illness: Mr. Barrera 49-year-old male who has been a long-term smoker, has had a fever for approximately 2 days. He has come to the emergency room with significant decreased saturations on room air and had to be placed on oxygen. Since he has been here has received several breathing treatments but oxygen saturations will go from 85% to 94% depending on how much he is talking.. He shows no signs of distress heart rate remains the same and respiratory rate does not come up and he does not have a cough. Chest x-ray shows a probable right lower lobe pneumonia. Due to an allergy to Keflex ER provider talked to the patient and he has been placed on Levaquin even though it does show an allergy to Cipro. Per the patient and per his chart he has taken this before Patient has an extensive past medical history that has some concerning factors. Patient presently uses a rolling walker due to a back problem that leaves him bent forward. History of 2 back surgeries and a broken broken pelvis in the ca st. Patient also has extensive documentation for foot wounds and hammertoes. Noting that he is seeing podiatry often. Other concerning feature is his hemoglobin is down slightly in the past in 2021 the patient's hemoglobin got to 6.9 required iron replacements noting splenomegaly and also a liver mass that per my chart has not been evaluated lately. Will get with the patient to find any more history or whether we do need to work this up. Also noting extensively high parathyroid hormone low testosterone and elevated blood sugars but no history of hemoglobin A1c being done. In the emergency room at this time the patient is stable except for dropping his saturations to 85% at times. But I do feel he needs to be admitted to continue with pulmonary toileting IV antibiotics as needed and to evaluate this accumulation of fluid in the right lung and/a history of a liver mass to make sure that this is not a neoplasm. Will consult pulmonary and and with his history of cardiac problems we will also consult cardiology to evaluate him. Added3:40 after patient been in the room. Was able to convince the patient to take his socks off and pull up his pants please note that significant peripheral vascular disease with thickening of the skin that was not highlighted in past notes. Do note that the patient had basically been seeing the water maintenance supervisor in the past for hammertoes. But the patient says it has been a long time and from the length of the toenails I can see that he is telling the truth he had the same podiatry in a long time. Definitely a source of infection open wounds to the lower feet. Patient states he has been taking his Suboxone on a regular basis and not using illegal drugs since 2018 The above per George Vinson APRN for the hospitalist service. Mr. Barrera is a longtime patient of our clinic and I recently saw him last month. From a cardiac standpoint he seems to be doing well. He relates that his only reason for coming was fever for the last couple of days which he associates with a history of anemia requiring IV iron in the past. EKG this admission shows sinus rhythm with chronic diffuse ST T wave changes without acute change. Troponins elevated starting at 0.15 and increased to 0.30 but patient is not having any chest pain. CRP is 148 and BNP is 7450. Echocardiogram is pending. Hemoglobin has dropped from 13.6 in [place] of this year to 8.0 this admission. Patient denies any GI bleeding. Chest x-ray shows right lower chest opacity felt to be a combination of pleural fluid and consolidative atelectasis, likely pneumonia. Chest CTA, 11/16/2024, right lower lobe pneumonia with moderate volume right pleural fluid compatible with parapneumonic effusion. Mild associated right hilar mediastinal adenopathy [facility] Disclaimer: The information contained in this section may have been updated after the patient was seen, as this information can be updated by other users. Medical History (Updated 11/17/24 @ 13:42 by FRANCESCO Emerson) Acute and chronic respiratory failure with hypoxia Peripheral vascular disease of foot Mixed hyperlipidemia COPD mixed type Hypothyroidism Hyperparathyroidism History of hypokalemia Tobacco abuse disorder Tobacco abuse counseling Hilar lymphadenopathy Mediastinal lymphadenopathy Screening for lung cancer COPD (chronic obstructive pulmonary disease) Smoking greater than 30 pack years Dyspnea on exertion MRSA (methicillin resistant Staphylococcus aureus) Arthritis CHF (congestive heart failure) PVD (peripheral vascular disease) PAD (peripheral artery disease) Myocardial infarction Hyperlipidemia Hypertension CAD (coronary artery disease) Atherosclerosis History of anemia Edema of both lower extremities 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 Insomnia Edema Surgical History Hx of neck surgery History of back surgery History of esophagogastroduodenoscopy (EGD) History of coronary artery stent placement Hx of cholecystectomy History of cardiac cath History of appendectomy History of colonoscopy Family History Father Cancer Mother Cancer Other Alcoholism Coronary artery disease Diabetes Heart attack Hyperlipidemia Hypertension Kidney disease Social History (Updated 11/17/24 @ 01:49 by Margarita Clement RN) Smoking Status: Current every day smoker tobacco type: cigarettes packs per day: 1 alcohol intake: former year quit: soci substance use type: former substance user and painkillers current occupational status: disabled Travel in the last 8 weeks?: None adopted: No caregiver/support person: No foster care: No household members: family housing: house lives independently: Yes marital status: education level: high school current occupational exposures/hazards: No caffeine: Yes special bety needs: No agree to transfusion: No do you feel safe at home: Yes victim of physical abuse: No victim of emotional abuse: No victim of sexual abuse: No would you like helpful sources: No Have you lived/traveled outside [place] in past 30 days?: No Contact w/someone who lives/traveled outside US past 30 days?: No Exposure to someone with infectious disease in past 14 days?: No Do you have a fever (greater than 100.4 F or 38 C)?: No Have you tested positive for COVID-19?: No Exposed to someone with COVID-19 in past 14 days?: No Do you have a sore throat?: No Do you have a cough?: No Do you have any weakness?: No Are you experiencing any nausea/vomitting?: No Do you have any diarrhea?: No Are you experiencing any unusual bleeding?: No Do you have any muscle aches/pain?: No Do you have any abdominal pain?: No Are you experiencing loss of taste or smell?: No Review of Systems Review of Systems Review of systems:: pertinent systems reviewed and negative unless documented below *Cardiovascular Cardiovascular: Denies chest pain and Reports dyspnea on exertion *Respiratory Respiratory: Reports dyspnea on exertion and Denies wheezing *Neurologic Neurologic: Reports as per HPI Allergic/Immunologic Allergic/Immunologic: Denies wheezing Exam Data for Last 24 hours Vital signs and Labs for Last 24 Hours: Temp Pulse Resp BP Pulse Ox O2 Del Method O2 Flow Rate 98.4 F 80 18 100/69 L 95 Nasal Cannula 4 11/17/24 12:00 11/17/24 13:10 11/17/24 13:10 11/17/24 12:00 11/17/24 12:00 11/17/24 12:00 11/17/24 12:00 Laboratory Results - last 24 hr 11/16/24 22:32: WBC 7.2, RBC 3.02 L, Hgb 9.6 L, Hct 29.8 L, MCV 98.7 H, MCH 31.8 H, MCHC 32.2, RDW 14.7, Plt Count 205, MPV 8.7, Neut % (Auto) 79.0, Lymph % (Auto) 14.9, Atlantic % (Auto) 4.8, Eos % (Auto) 0.4, Baso % (Auto) 0.6, Neut # (Auto) 5.7, Lymph # (Auto) 1.1, Atlantic # (Auto) 0.4, Eos # (Auto) 0.0, Baso # (Auto) 0.0, PT 13.0 H, INR 1.19 H, Sodium 134 L, Potassium 3.3 L, Chloride 95 L, Carbon Dioxide 30, Anion Gap 12.3, BUN 13, Creatinine 1.00, Estimated Creat Clear 124, Estimated GFR 80, Est GFR ( Amer) 97, Glucose 156 H, Calcium 8.3 L, Total Bilirubin 1.2, AST 20, ALT 14, Alkaline Phosphatase 121, Troponin I 0.15 H, C-Reactive Protein 148.0 H, NT-Pro-B Natriuret Pep 7450 H, Total Protein 7.0, Albumin 3.9, Globulin 3.1, Albumin/Globulin Ratio 1.3 11/16/24 22:44: Chlamy pneumoniae PCR Not detected, Adenovirus (PCR) Not detected, B. pertussis DNA (PCR) Not detected, Coronavirus OC43 (PCR) Not detected, Coronavirus HKU1 (PCR) Not detected, Coronavirus 229E (PCR) Not detected, SARS-CoV-2 (PCR) Not detected, Coronavirus NL63 (PCR) Not detected, Human Metapneumovir PCR Not detected, Influenza A (H1) PCR Not detected, Influ A (H1N1/09) PCR Not detected, Influenza A (H3) PCR Not detected, Influenza Type A (PCR) Not detected, Influenza Type B (PCR) Not detected, M. pneumoniae (PCR) Not detected, Parainfluenza 1 (PCR) Not detected, Parainfluenza 2 (PCR) Not detected, Parainfluenza 3 (PCR) Not detected, Parainfluenza 4 (PCR) Not detected, RSV (PCR) Not detected, Entero/Rhino (PCR) Not detected 11/17/24 01:51: Troponin I 0.23 H 11/17/24 05:03: WBC 5.7, RBC 2.56 L, Hgb 8.0 L D, Hct 25.3 L, MCV 98.8 H, MCH 31.3 H, MCHC 31.6 L, RDW 14.6, Plt Count 158, MPV 8.6, Neut % (Auto) 75.7, Lymph % (Auto) 17.2, Atlantic % (Auto) 6.1, Eos % (Auto) 0.2, Baso % (Auto) 0.4, Neut # (Auto) 4.3, Lymph # (Auto) 1.0, Atlantic # (Auto) 0.4, Eos # (Auto) 0.0, Baso # (Auto) 0.0, Total Counted 100, Neutrophils % (Manual) 80 H, Lymphocytes % (Manual) 13, Monocytes % (Manual) 7, ESR 132 H, Hemoglobin A1c 5.3, Troponin I 0.27 H 11/17/24 08:20: Sodium 135 L, Potassium 3.4 L, Chloride 94 L, Carbon Dioxide 36 H, Anion Gap 8.4, BUN 11, Creatinine 1.00, Estimated Creat Clear 121, Estimated GFR 80, Est GFR ( Amer) 97, Glucose 115 H D, Calcium 8.1 L, Total Bilirubin 0.9, AST 15 L, ALT 8 L D, Alkaline Phosphatase 106, Troponin I 0.30 H, Total Protein 6.2 L, Albumin 3.4 L D, Globulin 2.8, Albumin/Globulin Ratio 1.2 I & O for Last 24 hours: Intake & Output 11/15/24 11/16/24 11/17/24 11/18/24 11:59 11:59 11:59 11:59 Output Total 1415 / 1415 Balance -1415 / -1415 Weight 207 lb 6.01 oz 207 lb 6.01 oz Microbiology Reports for the Last 24 Hours: Microbiology 11/17/24 07:34 Foot,Left - Wound Gram Stain - Final Constitutional Constitutional: no acute distress *Routine Respiratory Exam Respiratory: Present decreased breath sounds; Absent rhonchi or wheezes *Routine Cardiovascular Exam Cardiovascular: Present RRR, murmur and gallop *Routine Abdominal Exam Abdominal: Present normoactive bowel sounds *Routine Extremities Exam Extremities: Present edema Comments: Brawny edema of both lower extremities to just below the knee *Routine Neurological Exam Neurological: Present alert, oriented X3 and CN II-XII intact Meds Home Medications and Allergies Home Medications ?Medication ?Instructions ?Recorded ?Confirmed ?Type aspirin 81 mg tablet,delayed 81 mg PO DAILY 05/05/18 0 11/17/24 History release buprenorphine 8 mg-naloxone 2 mg 2 tab sublingual CHAITANYA Y addiction 06/21/18 11/17/24 History sublingual tablet ergocalciferol (vitamin D2) 1,250 1,250 mcg PO WEEKLY #9 caps 10/31/23 11/17/24 Rx mcg (50,000 unit) capsule umeclidinium 62.5 mcg-vilanterol 1 inh inhalation CHAITANYA Y 90 days 02/18/24 11/17/24 Rx 25 mcg/actuation powdr for #180 ea inhalation (Anoro Ellipta) furosemide 40 mg tablet 40 mg PO DAILY PRN Edema 03/0311/17/24 History ipratropium 20 mcg-albuterol 100 2 puff inhalation BID 11/17/24 11/17/24 History mcg/actuation mist for inhalation (Combivent Respimat) levothyroxine 25 mcg tablet 25 mcg PO DAILY 11/17/24 0 11/17/24 History meclizine 25 mg tablet 25 mg PO DAILY PRN Dizziness 11/17/24 11/17/24 History omeprazole 20 mg capsule,delayed 20 mg PO DAILY 11/17/24 History release promethazine 25 mg tablet 25 mg PO Q8HP PRN Nausea And 11/17/24 11/17/24 History Vomiting venlafaxine 150 mg 150 mg PO DAILY 11/17/2403/03 History capsule,extended release 24 hr venlafaxine 75 mg capsule,extended 75 mg PO DAILY 11/0711/17/24 History release 24 hr New Prescriptions to Start Prescriptions: Allergies Allergy/AdvReac Type Severity Reaction Status Date / Time cephalexin (From Keflex) Allergy Verified 10/28/24 09:59 ciprofloxacin (From Cipro) Allergy Verified 10/28/24 09:59 tramadol Allergy Verified 10/28/24 09:59 Assessment and Plan *Assessment and plan (1) Fever: Status: Acute Qualifiers: Fever type: unspecified Qualified Code(s): R50.9 - Fever, unspecified Category: Medical Code(s): R50.9 - Fever, unspecified (2) Pneumonia: Status: Acute Qualifiers: Laterality: right Lung location: lower lobe of lung Pneumonia type: due to unspecified organism Qualified Code(s): J18.9 - Pneumonia, unspecified organism Category: Medical Code(s): J18.9 - Pneumonia, unspecified organism (3) Acute and chronic respiratory failure with hypoxia: Status: Acute Category: Medical Code(s): J96.21 - Acute and chronic respiratory failure with hypoxia (4) Iron deficiency anemia: Status: Acute Qualifiers: Iron deficiency anemia type: inadequate dietary iron intake Qualified Code(s): D50.8 - Other iron deficiency anemias Category: Medical Code(s): D50.9 - Iron deficiency anemia, unspecified (5) Chronic heart failure with preserved ejection fraction (HFpEF, >= 50%): Status: Acute Category: Medical Code(s): I50.32 - Chronic diastolic (congestive) heart failure (6) Pulmonary hypertension: Status: Acute Category: Medical Code(s): I27.20 - Pulmonary hypertension, unspecified Plan 1. Right sided pneumonia with fever and acute on chronic respiratory failure with hypoxia -IV Levaquin -Pulmonary consulted -CTA of the chest negative for PE 2. Iron deficiency anemia, likely recurrent -Acute drop from 13.6-8.0 in the last 2 months - Stool for occult blood and peripheral smear pending 3. Pulmonary hypertension/COPD -Followed by Dr. Thompson - On oxygen 4. HFpEF, chronic -Elevated BNP this admission but likely due to pneumonia -Echo this admission, normal biventricular systolic function, borderline RV dilation, mild biatrial dilation, mild MR. -Continue Lasix 5. CAD with prior coronary stenting -last [facility], 2021, patent stents with mild CAD -Asymptomatic Elevated troponins this admission without acute EKG changes. Likely related to pneumonia and hypoxemia. -Continue aspirin therapy -hold off on BB or SANDRA/ARB/ARNi since BP is borderline No plans for interventional procedures at this time. Restart aspirin therapy 81 mg daily. Will continue to follow with you.
--- NOTE | 2024-11-17 16:03 | PC.NURSE ---
ulceration to left dorsal foot cleansed with NS, dressed with non-adherent pad, 4x4 gauze, and wrapped with kerlex and edil to hold dressing in place. ulcer to medial malleolus cleansed with NS and foam silicone dressing applied.
[2024-11-17] MEDS: POTASSIUM CHLORIDE 20MEQ TAB 40 MEQ PO ×2 (17:35→20:52)
[2024-11-17 17:54] LABS: Hematocrit 26.8 % (42.0-52.0)
[2024-11-17 19:46] LABS: Hemoglobin 9.0 g/dL (14.1-18.0)
[2024-11-17] MEDS: FAMOTIDINE 20MG TABLET 20 MG PO (20:52)
[2024-11-17] MEDS: PANTOPRAZOLE 40MG TABLET 40 MG PO (20:52)
[2024-11-17] MEDS: CALCIUM CARBONATE 500MG CHEWTAB 1000 MG PO (20:52)
[2024-11-17] MEDS: VENLAFAXINE XR 75MG CAPSULE 225 MG PO (21:19)
[2024-11-18] VITALS: PULSE 71
[2024-11-18 04:00] VITALS: BP 108/56; PULSE 60; PULSE 67; RESP 18; TEMP 36.9; O2SAT 93; BMI 30.7
--- NOTE | 2024-11-18 04:20 | PC.NURSE ---
Patient is alert and oriented x4. He was observed to be resting in bed with eyes closed, respirations even and unlabored on 2 L of oxygen via nasal cannula, and no apparent distress throughout the majority of the night. Oxygen saturations have remained > 90%. He has not reported having a productive cough this shift. Diminished lung sounds heard upon auscultation, bowel sounds active. Incentive spirometer usage at the bedside. Sputum and stool sample remains uncollected; unable to obtain thus far (no bowel movement thus far this shift). Normal sinus rhythm on telemetry. Abdomen soft, non-tender and round upon palpation. Tums and a one time dose of oral Pepcid were obtained by Juli Patel APRN and given per JUN for the patient's report of heartburn this shift. Scheduled medications were administered per JUN as well. Oral Benadryl given for sleep aid. Electrolyte replacement protocol. Skin issues were assessed and documented accordingly in this shift's biophysical. Patient ambulates independently with standby assistance in his room/to the bathroom. Personal rolling walker residing in room. Urinal at the bedside for urination needs + to monitor urine output. Vital signs stable. At this time, the patient is resting in bed without any further complaints. No new needs thus far. Call light within reach.
[2024-11-18] MEDS: UMECLIDINIUM/VILANTEROL 62.5/25MCG INHALER 1 PUFF IH (06:06)
[2024-11-18 06:27] LABS: Hematocrit 26.4 % (42.0-52.0); Hemoglobin 8.7 g/dL (14.1-18.0); Immature Granulocytes % 0.5 %; Mean Corpuscular HGB Conc 33.0 g/dL (31.8-35.4); Mean Corpuscular Hemoglobin 32.1 pg (27.0-31.2); Mean Corpuscular Volume 97.4 fl (80-94); Nucleated Red Blood Cells % 0 %; Platelet Count 161 K/mm3 (142-424); Red Blood Count 2.71 M/mm3 (4.60-6.20); Red Cell Distribution Width-SD 51.6 fL; White Blood Count 4.2 K/mm3 (4.8-10.8)
[2024-11-18 06:31] LABS: Albumin Level 3.4 g/dl (3.5-5.0); Chloride 91 mmol/L (98-107); Sodium 134 mmol/L (136-145)
[2024-11-18 06:32] LABS: Potassium 3.6 mmoL/L (3.5-5.1)
[2024-11-18 06:34] LABS: Alanine Aminotransferase 9 U/L (12-78); Albumin/Globulin Ratio 1.2 (1.1-1.8); Anion Gap 9.6 mEq/L (5-15); Aspartate Amino Transferase 16 U/L (17-59); Blood Urea Nitrogen 12 mg/dl (9-20); Carbon Dioxide 37 mmol/L (22.0-30.0); Creatinine Clearance Estimated 121 mL/min (50-200); Creatinine,Serum 1.00 mg/dl (0.66-1.25); Estimated Glomerular Filt Rate 80 ml/min (>60); GFR (African American) 97 ML/MIN (>60); Globulin 2.8 g/dL (1.3-3.2); Total Protein,Serum 6.2 g/dl (6.3-8.2)
[2024-11-18 06:35] LABS: Alkaline Phosphatase 99 U/L (38-126); Bilirubin,Total 0.9 mg/dl (0.2-1.3); Calcium 8.3 mg/dl (8.4-10.2); Glucose 107 mg/dl (74-100); Magnesium 1.9 mg/dl (1.6-2.3)
[2024-11-18] MEDS: LEVOTHYROXINE 25MCG (0.025MG) TAB 25 MCG PO (06:38)
--- NOTE | 2024-11-18 07:02 | P.PN_ITS ---
Subjective *Date: 11/18/24 *Time: 08:06 Interval history: 11/18/24: Patient is doing, looks better. He is sitting up on side of the bed. Patient is being weaned off his nasal cannula this morning. Legs and wounds improving some this morning. We are placing unna boots on his legs today. Ortho Exam (Inpt) Vital signs and Labs for Last 24 Hours: Temp Pulse Resp BP Pulse Ox O2 Del Method O2 Flow Rate 98.5 F 67 18 108/56 L 93 L Nasal Cannula 2 11/18/24 04:00 11/18/24 04:00 11/18/24 04:00 11/18/24 04:00 11/18/24 04:00 11/18/24 06:40 11/18/24 06:40 Laboratory Results - last 24 hr 11/17/24 08:20: Sodium 135 L, Potassium 3.4 L, Chloride 94 L, Carbon Dioxide 36 H, Anion Gap 8.4, BUN 11, Creatinine 1.00, Estimated Creat Clear 121, Estimated GFR 80, Est GFR ( Amer) 97, Glucose 115 H D, Calcium 8.1 L, Total Bilirubin 0.9, AST 15 L, ALT 8 L D, Alkaline Phosphatase 106, Troponin I 0.30 H, Total Protein 6.2 L, Albumin 3.4 L D, Globulin 2.8, Albumin/Globulin Ratio 1.2 11/17/24 17:44: Hgb 9.0 L D, Hct 26.8 L, Lactate Dehydrogenase 170 L 11/18/24 06:04: WBC 4.2 L D, RBC 2.71 L, Hgb 8.7 L, Hct 26.4 L, MCV 97.4 H, MCH 32.1 H, MCHC 33.0, RDW 14.5, Plt Count 161, MPV 8.4, Neut % (Auto) 65.7, Lymph % (Auto) 24.6, [place] % (Auto) 7.8, Eos % (Auto) 0.9, Baso % (Auto) 0.5, Neut # (Auto) 2.8, Lymph # (Auto) 1.0, [place] # (Auto) 0.3, Eos # (Auto) 0.0, Baso # (Auto) 0.0, Sodium 134 L, Potassium 3.6, Chloride 91 L, Carbon Dioxide 37 H, Anion Gap 9.6, BUN 12, Creatinine 1.00, Estimated Creat Clear 121, Estimated GFR 80, Est GFR ( Amer) 97, Glucose 107 H, Calcium 8.3 L, Magnesium 1.9, Total Bilirubin 0.9, AST 16 L, ALT 9 L, Alkaline Phosphatase 99, Total Protein 6.2 L, Albumin 3.4 L, Globulin 2.8, Albumin/Globulin Ratio 1.2 I & O for Labs for Last 24 Hours: Intake & Output 11/15/24 11/16/24 11/17/24 11/18/24 23:59 23:59 23:59 23:59 Intake Total 280 / 280 372 / 372 Output Total 5515 / 5515 500 / 500 Balance -5235 / -5235 -128 / -128 Weight 212 lb 207 lb 6.01 oz 207 lb Microbiology Reports for the Last 24 Hours: Microbiology 11/16/24 22:55 Blood Blood Culture - Preliminary NO GROWTH AFTER 24 HOURS 11/16/24 22:57 Blood Blood Culture - Preliminary NO GROWTH AFTER 24 HOURS 11/17/24 07:34 Foot,Left - Wound Gram Stain - Final Constitutional: Present no acute distress and cooperative Head: Present normocephalic Eyes: Present as per HPI Neck: Present normal inspection and trachea midline Respiratory: Present normal respiratory effort and able to speak in complete sentences Comment:: Nasal cannula,no shortness of breath observed. Cardiac: Present posterior tibial pulses present and pedal pulses present Comment:: B/L DP/PT noted, the PT somewhat weaker than DP. 11/17/24, b/ LE ABIs, which show adequate flow to heal. Comments:: Deferred (male): Present deferred Extremities: Present tenderness and normal capillary refill Comment:: B/L lower legs skin is dark in color, thickened skin from history of peripheral vascular disease. Patient stated that the wound to his left dorsal foot would get better and then get worse, he has had it off and on over a year. The Right medial ankle has been there a few months now and his wound just wont heal. - Nails trimmed x 10 on 11/17/24 -Thick hyper-keratosis noted to both feet and lower legs. -B/L Unna boots to b/l lower legs placed 11/18/24 discussed he may leave in place up to 5-7 days max. Skin: Present erythema, dry, wounds and cracked Comment:: -Right medial ankle ulcer, wound Debrided with a sterile curette sharply, excisionally through skin into the subcu layer. Fibrotic tissue was removed. Good bleeding was noted. Granular base was noted. Post debridement the wound measured 1.5 x 2.0 x 0.1cm -No new debridement today 11/18/24), Wound cleaned with wound suction plate carrier cleaner and covered in the Unna boot dressing. -Left dorsal foot ulcer, wound Debrided with a sterile curette sharply, excisionally through skin into the subcu layer. Fibrotic tissue was removed. Good bleeding was noted. Granular base was noted. Post debridement the wound measured 3.0 x3.0 x 0.1 cm. -No new debridement today 11/18/24), Wound cleaned with wound suction plate carrier cleaner and covered in the Unna boot dressing. -May leave unna boots in placed 5-7 days max. Neuro: Present Motor Function Intact, Sensory Function Intact (decreased sensation noted ) and oriented x 3 Ankle: right: swelling (Trace Right medial ulcer edema) and bilateral: erythema (discolored b/l lower legs; chronic PVD)) and bilateral: wound (Right medial ankle ulcer, Left dorsal foot ulcer.) Feet/Toes: bilateral: hammer toe, bilateral: nail abnormalities (Nails thick, discolored, trimmed 11/17/24 ), bilateral: Ingrown Toenail (incurvated nails ), bilateral: onychomycosis (Suspected; yellow in color, crumbly when trimmed), bilateral: tenderness (Nails were tender when trimmed due to length) and bilateral: wound (Right medial ankle, left dorsal foot wound) Feet w/LR Ind Top: 2 1. Right medial ankle wound measuring 1.5 x 2.0 x 0.1 cm, no drainage noted granular wound bed. 2. Left dorsal foot wound measuring 3.0 x 3.0 x 0.1 cm, fibrotic slough. Wound culture obtained, no active drainage. Assessment and Plan *Assessment and plan (1) Peripheral vascular disease of foot: Status: Acute Category: Medical Code(s): I73.9 - Peripheral vascular disease, unspecified (2) Foot ulcer, right: Status: Acute Qualifiers: Non-pressure ulcer stage: with other severity Qualified Code(s): L 97.518 - Non-pressure chronic ulcer of other part of right foot with other specified severity Category: Medical Code(s): L97.519 - Non-pressure chronic ulcer of other part of right foot with unspecified severity (3) Supplemental oxygen dependent: Status: Acute Category: Medical Code(s): Z99.81 - Dependence on supplemental oxygen (4) Wound of right ankle: Status: Acute Qualifiers: Encounter type: initial encounter Qualified Code(s): S91.001A - Unspecified open wound, right ankle, initial encounter Category: Medical Code(s): S91.001A - Unspecified open wound, right ankle, initial encounter (5) Wound of left foot: Status: Acute Category: Medical Code(s): S91.302A - Unspecified open wound, left foot, initial encounter (6) Onychodystrophy: Status: Acute Category: Medical Code(s): L60.3 - Nail dystrophy (7) Keratosis: Status: Acute Category: Medical Code(s): L57.0 - Actinic keratosis (8) Onychomycosis: Status: Acute Category: Medical Code(s): B35.1 - Tinea unguium (9) Acquired hammer toes of both feet: Status: Acute Category: Medical Code(s): M20.41 - Other hammer toe(s) (acquired), right foot; M20.42 - Other hammer toe(s) (acquired), left foot (10) Decreased sensation of lower extremity: Status: Acute Category: Medical Code(s): R20.8 - Other disturbances of skin sensation Plan 11/17/24 Podiatry consult -Patient made NPO until after our consult, but patient also needing x-rays of abdomen and other testing will allow hospitalist to determine if patient is to have a diet this morning. - No surgical plans per the podiatry standpoint - Wound culture obtained from left dorsal foot wound - Bilateral foot x-rays 3 view weightbearing ordered - Bilateral ABIs to be obtained this morning -Wounds to bilateral feet were cleaned and debrided see above assessment - Wounds were lightly dressed to accommodate for testing this morning - Podiatry will continue to follow - All orders per Dr. Bhatt 11/18/24: Podiatry consult follow up : Left foot and Left ankel xrays : 11/17/24 bilateral foot x-rays, left ankle x-rays: No fracture, cortical erosions or obvious signs of osteomyelitis noted. Bilateral lower extremity TWIN's: 11/17/24 - b/ LE ABIs, which show adequate flow to heal. -Patient seems to be doing better today -Wound culture from Left dorsal foot pending -No debridement done today, Wounds looking better, left dorsal foot and right medial ankle: See PE for measurements. -B/L Unna boots placed to feet and lower legs, leave in place for 5-7 days max. -WBaT. Check if he has post op shoes. -Patient provided a post op shoe to wear on his Left foot to protect L dorsal wound, has Diabetic shoe to wear on the Right foot. -Labs reviewed. 11/18/2024 WBC 4.2, glucose 107, last A1c 11/17/2024 was 5.3% -Defer antibiotic tx to Hospitalist team. -No plan for surgery at this time. -Patient can follow up in Podiatry clinic when discharged 1-2 weeks -All orders per Dr. Bhatt
--- NOTE | 2024-11-18 07:36 | EXP.CARD.PN ---
Subjective Subjective Date: 11/18/24 Time: 07:36 Principal diagnosis: Pneumonia, CHF Interval history: 49-year-old white male in bed in no acute distress. He has diuresed over 5 L this admission with improvement in his lower extremity edema and is feeling like he is breathing better as well. He is anxious to go home today if possible. Exam Data for Last 24 hours Vital signs and Labs for Last 24 Hours: Temp Pulse Resp BP Pulse Ox O2 Del Method O2 Flow Rate 98.5 F 67 18 108/56 L 93 L Nasal Cannula 2 11/18/24 04:00 11/18/24 04:00 11/18/24 04:00 11/18/24 04:00 11/18/24 04:00 11/18/24 06:40 11/18/24 06:40 Laboratory Results - last 24 hr 11/17/24 08:20: Sodium 135 L, Potassium 3.4 L, Chloride 94 L, Carbon Dioxide 36 H, Anion Gap 8.4, BUN 11, Creatinine 1.00, Estimated Creat Clear 121, Estimated GFR 80, Est GFR ( Amer) 97, Glucose 115 H D, Calcium 8.1 L, Total Bilirubin 0.9, AST 15 L, ALT 8 L D, Alkaline Phosphatase 106, Troponin I 0.30 H, Total Protein 6.2 L, Albumin 3.4 L D, Globulin 2.8, Albumin/Globulin Ratio 1.2 11/17/24 17:44: Hgb 9.0 L D, Hct 26.8 L, Lactate Dehydrogenase 170 L 11/18/24 06:04: WBC 4.2 L D, RBC 2.71 L, Hgb 8.7 L, Hct 26.4 L, MCV 97.4 H, MCH 32.1 H, MCHC 33.0, RDW 14.5, Plt Count 161, MPV 8.4, Neut % (Auto) 65.7, Lymph % (Auto) 24.6, [place] % (Auto) 7.8, Eos % (Auto) 0.9, Baso % (Auto) 0.5, Neut # (Auto) 2.8, Lymph # (Auto) 1.0, [place] # (Auto) 0.3, Eos # (Auto) 0.0, Baso # (Auto) 0.0, Sodium 134 L, Potassium 3.6, Chloride 91 L, Carbon Dioxide 37 H, Anion Gap 9.6, BUN 12, Creatinine 1.00, Estimated Creat Clear 121, Estimated GFR 80, Est GFR ( Amer) 97, Glucose 107 H, Calcium 8.3 L, Magnesium 1.9, Total Bilirubin 0.9, AST 16 L, ALT 9 L, Alkaline Phosphatase 99, Total Protein 6.2 L, Albumin 3.4 L, Globulin 2.8, Albumin/Globulin Ratio 1.2 I & O for Last 24 hours: Intake & Output 11/15/24 11/16/24 11/17/24 11/18/24 11:59 11:59 11:59 11:59 Intake Total 652 / 652 Output Total 2315 / 2315 3700 / 3700 Balance -2315 / -2315 -3048 / -3048 Weight 207 lb 6.01 oz 207 lb Microbiology Reports for the Last 24 Hours: Microbiology 11/16/24 22:55 Blood Blood Culture - Preliminary NO GROWTH AFTER 24 HOURS 11/16/24 22:57 Blood Blood Culture - Preliminary NO GROWTH AFTER 24 HOURS 11/17/24 07:34 Foot,Left - Wound Gram Stain - Final Constitutional Constitutional: no acute distress *Routine Respiratory Exam Respiratory: Present CTA bilaterally *Routine Cardiovascular Exam Cardiovascular: Present RRR; Absent murmur, gallop or rubs *Routine Extremities Exam Extremities: Present edema ([place] edema slightly improved) *Routine Neurological Exam Neurological: Present alert, oriented X3 and CN II-XII intact Progress Note: A&P Assessment and plan (1) Pneumonia: Status: Acute (2) Chronic heart failure with preserved ejection fraction (HFpEF, >= 50%): Status: Acute (3) Peripheral vascular disease of foot: Status: Acute (4) Foot ulcer, right: Status: Acute (5) Supplemental oxygen dependent: Status: Acute (6) Wound of right ankle: Status: Acute (7) Wound of left foot: Status: Acute (8) Onychodystrophy: Status: Acute (9) Keratosis: Status: Acute (10) Onychomycosis: Status: Acute (11) Acquired hammer toes of both feet: Status: Acute (12) Decreased sensation of lower extremity: Status: Acute (13) CAD (coronary artery disease): Status: Chronic (14) Tobacco abuse disorder: Status: Chronic (15) Pulmonary hypertension: Status: Acute (16) Iron deficiency anemia: Status: Acute Assessment and Plan Assessment and Plan for All Diagnoses:: 1. Right sided pneumonia with fever and acute on chronic respiratory failure with hypoxia -IV Levaquin -Pulmonary consulted -CTA of the chest negative for PE 2. Iron deficiency anemia, recurrent -Acute drop from 13.6-8.0 in the last 2 months, stable at 8.7 currently. -Stool for occult blood (no BM yet) and peripheral smear pending -labs (iron, b12, folate and ferritin) today are normal -history of iron infusions as outpatient 3. Pulmonary hypertension/COPD -Followed by Dr. Thompson - On oxygen, attempt to wean off 4. HFpEF, chronic -Elevated BNP this admission with >5 Liters of fluid diuresed. Renal functions still normal. -Echo this admission, normal biventricular systolic function, borderline RV dilation, mild biatrial dilation, mild MR. -Continue Lasix -Add SGLT2i if affordable -Add Kerendia if affordable (alternative would be spironolactone) 5. CAD with prior coronary stenting -last [facility], 2021, patent stents with mild CAD -Asymptomatic Elevated troponins this admission without acute EKG changes. Likely related to pneumonia and hypoxemia. -Continue aspirin therapy -hold off on BB or SANDRA/ARB/ARNi since BP is borderline Clinically improved from a cardiac standpoint for discharge home. Repeat BNP and troponin trending down. Will try to add both SGLT2 inhibitor and Kerendia if affordable. Home medication recommendations: Aspirin 81 mg daily Lasix 40 mg daily Karendia 10 mg daily Jardiance 10 mg daily Follow-up in our office in 1 to 2 weeks
[2024-11-18 07:44] VITALS: O2SAT 95
[2024-11-18 07:50] VITALS: BP 114/54; PULSE 61; RESP 19; TEMP 36.8; O2SAT 97
[2024-11-18 08:03] LABS: Iron 130 ug/dL (49-181)
[2024-11-18 08:08] LABS: NT Pro Brain Natriuretic Pep. 2630 pg/mL (0-125)
[2024-11-18 08:10] LABS: Troponin I 0.15 ng/ml (0.00-0.034)
[2024-11-18 08:12] LABS: Total Iron Binding Capacity 263 ug/dL (261-462)
[2024-11-18 08:39] LABS: Ferritin 98.5 ng/ml (17.9-464)
[2024-11-18] MEDS: ASPIRIN EC 81MG TABLET 81 MG PO (08:59)
[2024-11-18] MEDS: FUROSEMIDE 40MG/4ML VIAL 40 MG IV (08:59)
[2024-11-18] MEDS: VENLAFAXINE XR 75MG CAPSULE 225 MG PO (08:59)
[2024-11-18] MEDS: BUPRENORPHINE/NALOXONE 8MG/2MG ODT 1 EACH SL (09:07)
--- NOTE | 2024-11-18 09:37 | EXP.PULM.PN ---
Subjective *Date: 11/18/24 *Time: 10:27 Interval history: No acute respiratory events overnight. Patient admits continued improvement in his respiratory status. Pulmonology Exam Inpatient Vital signs and Labs for Last 24 Hours: Temp Pulse Resp BP Pulse Ox O2 Del Method O2 Flow Rate 98.3 F 61 19 114/54 L 97 Room Air 2 11/18/24 07:50 11/18/24 07:50 11/18/24 07:50 11/18/24 07:50 11/18/24 07:50 11/18/24 07:57 11/18/24 06:40 Laboratory Results - last 24 hr 11/17/24 17:44: Hgb 9.0 L D, Hct 26.8 L, Lactate Dehydrogenase 170 L 11/18/24 06:04: WBC 4.2 L D, RBC 2.71 L, Hgb 8.7 L, Hct 26.4 L, MCV 97.4 H, MCH 32.1 H, MCHC 33.0, RDW 14.5, Plt Count 161, MPV 8.4, Neut % (Auto) 65.7, Lymph % (Auto) 24.6, [place] % (Auto) 7.8, Eos % (Auto) 0.9, Baso % (Auto) 0.5, Neut # (Auto) 2.8, Lymph # (Auto) 1.0, [place] # (Auto) 0.3, Eos # (Auto) 0.0, Baso # (Auto) 0.0, Sodium 134 L, Potassium 3.6, Chloride 91 L, Carbon Dioxide 37 H, Anion Gap 9.6, BUN 12, Creatinine 1.00, Estimated Creat Clear 121, Estimated GFR 80, Est GFR ( Amer) 97, Glucose 107 H, Calcium 8.3 L, Magnesium 1.9, Total Bilirubin 0.9, AST 16 L, ALT 9 L, Alkaline Phosphatase 99, Troponin I 0.15 H, NT-Pro-B Natriuret Pep 2630 H, Total Protein 6.2 L, Albumin 3.4 L, Globulin 2.8, Albumin/Globulin Ratio 1.2 11/18/24 : Iron 130, TIBC 263, Iron Saturation 49.62721, Ferritin 98.5 Temp Pulse Resp BP Pulse Ox O2 Del Method O2 Flow Rate 98.3 F 77 18 106/46 L 97 Nasal Cannula 4 11/17/24 04:00 11/17/24 04:00 11/17/24 04:00 11/17/24 04:00 11/17/24 04:00 11/17/24 08:25 11/17/24 08:25 Laboratory Results - last 24 hr 11/16/24 22:32: WBC 7.2, RBC 3.02 L, Hgb 9.6 L, Hct 29.8 L, MCV 98.7 H, MCH 31.8 H, MCHC 32.2, RDW 14.7, Plt Count 205, MPV 8.7, Neut % (Auto) 79.0, Lymph % (Auto) 14.9, [place] % (Auto) 4.8, Eos % (Auto) 0.4, Baso % (Auto) 0.6, Neut # (Auto) 5.7, Lymph # (Auto) 1.1, [place] # (Auto) 0.4, Eos # (Auto) 0.0, Baso # (Auto) 0.0, PT 13.0 H, INR 1.19 H, Sodium 134 L, Potassium 3.3 L, Chloride 95 L, Carbon Dioxide 30, Anion Gap 12.3, BUN 13, Creatinine 1.00, Estimated Creat Clear 124, Estimated GFR 80, Est GFR ( Amer) 97, Glucose 156 H, Calcium 8.3 L, Total Bilirubin 1.2, AST 20, ALT 14, Alkaline Phosphatase 121, Troponin I 0.15 H, C-Reactive Protein 148.0 H, NT-Pro-B Natriuret Pep 7450 H, Total Protein 7.0, Albumin 3.9, Globulin 3.1, Albumin/Globulin Ratio 1.3 11/16/24 22:44: Chlamy pneumoniae PCR Not detected, Adenovirus (PCR) Not detected, B. pertussis DNA (PCR) Not detected, Coronavirus OC43 (PCR) Not detected, Coronavirus HKU1 (PCR) Not detected, Coronavirus 229E (PCR) Not detected, SARS-CoV-2 (PCR) Not detected, Coronavirus NL63 (PCR) Not detected, Human Metapneumovir PCR Not detected, Influenza A (H1) PCR Not detected, Influ A (H1N1/09) PCR Not detected, Influenza A (H3) PCR Not detected, Influenza Type A (PCR) Not detected, Influenza Type B (PCR) Not detected, M. pneumoniae (PCR) Not detected, Parainfluenza 1 (PCR) Not detected, Parainfluenza 2 (PCR) Not detected, Parainfluenza 3 (PCR) Not detected, Parainfluenza 4 (PCR) Not detected, RSV (PCR) Not detected, Entero/Rhino (PCR) Not detected 11/17/24 01:51: Troponin I 0.23 H 11/17/24 05:03: WBC 5.7, RBC 2.56 L, Hgb 8.0 L D, Hct 25.3 L, MCV 98.8 H, MCH 31.3 H, MCHC 31.6 L, RDW 14.6, Plt Count 158, MPV 8.6, Neut % (Auto) 75.7, Lymph % (Auto) 17.2, [place] % (Auto) 6.1, Eos % (Auto) 0.2, Baso % (Auto) 0.4, Neut # (Auto) 4.3, Lymph # (Auto) 1.0, [place] # (Auto) 0.4, Eos # (Auto) 0.0, Baso # (Auto) 0.0, Total Counted 100, Neutrophils % (Manual) 80 H, Lymphocytes % (Manual) 13, Monocytes % (Manual) 7, ESR 132 H, Hemoglobin A1c 5.3, Troponin I 0.27 H 11/17/24 08:20: Sodium 135 L, Potassium 3.4 L, Chloride 94 L, Carbon Dioxide 36 H, Anion Gap 8.4, BUN 11, Creatinine 1.00, Estimated Creat Clear 121, Estimated GFR 80, Est GFR ( Amer) 97, Glucose 115 H D, Calcium 8.1 L, Total Bilirubin 0.9, AST 15 L, ALT 8 L D, Alkaline Phosphatase 106, Troponin I 0.30 H, Total Protein 6.2 L, Albumin 3.4 L D, Globulin 2.8, Albumin/Globulin Ratio 1.2 I & O for Labs for Last 24 Hours: Intake & Output 11/15/24 11/16/24 11/17/24 11/18/24 23:59 23:59 23:59 23:59 Intake Total 280 / 652 372 / 372 Output Total 5515 / 5515 500 / 500 Balance -5235 / -4863 -128 / -128 Weight 212 lb 207 lb 6.01 oz 207 lb Intake & Output 11/14/24 11/15/24 11/16/24 11/17/24 23:59 23:59 23:59 23:59 Output Total 1415 / 1415 Balance -1415 / -1415 Weight 212 lb 207 lb 6.01 oz Microbiology Reports for the Last 24 Hours: Microbiology 11/17/24 07:34 Foot,Left - Wound Gram Stain - Final 11/17/24 07:34 Foot,Left - Wound Wound Culture - Preliminary 11/16/24 22:55 Blood Blood Culture - Preliminary NO GROWTH AFTER 24 HOURS 11/16/24 22:57 Blood Blood Culture - Preliminary NO GROWTH AFTER 24 HOURS Constitutional: Present mild distress Head: Present normocephalic and atraumatic ENT: Present normal exam, normal oropharynx and mucous membranes moist Neck: Present normal inspection and full ROM Respiratory: Present crackles, diminished air movement, normal respiratory effort and able to speak in complete sentences; Absent prolonged expiratory phase, respiratory distress or wheezes Cardiac: Present S1/S2, Tachycardia and radial pulses present GI: Present soft and distention; Absent tenderness or guarding Skin: Absent intact, cyanosis or jaundice Neuro: Present alert, awake and oriented x 3 Extremities: Present normal inspection and edema; Absent normal capillary refill, clubbing or cyanosis Psychiatric: Present normal affect and cooperative Assessment and Plan *Assessment and plan (1) Pneumonia: Status: Acute Qualifiers: Laterality: right Lung location: lower lobe of lung Pneumonia type: due to unspecified organism Qualified Code(s): J18.9 - Pneumonia, unspecified organism Category: Medical Code(s): J18.9 - Pneumonia, unspecified organism (2) Acute and chronic respiratory failure with hypoxia: Status: Acute Category: Medical Code(s): J96.21 - Acute and chronic respiratory failure with hypoxia (3) Bilateral pleural effusion: Status: Acute Category: Medical Code(s): J90 - Pleural effusion, not elsewhere classified Plan Mr. Barrera is a 49-year-old male greater than 30 PPD, COPD on triple inhaler therapy, history of sleep apnea with AHI of 39 presented today with worsening respiratory distress low oxygen saturations and pulmonary was called for further evaluation and management. Continue to smoke, no smoking close to 1 pack a day. Using Anoro on as-needed basis and Combivent on a scheduled basis. Counseled on the right use of his inhaler therapy at baseline for Afebrile. Hemodynamically stable no evidence of leukocytosis. Low hemoglobin noted. Comprehensive respiratory viral PCR panel negative. Echo from 2021 enlarged RV with septal flattening and elevated RVSP calculated at 76 mmHg concerning for severe volume overload CTA upon admission no pulmonary embolism. Bilateral pleural effusions small left and moderate right pleural effusion with adjacent atelectasis and pneumonia. Mediastinal and right hilar lymphadenopathy also appreciated. Currently receiving diuretics and antibiotics, levofloxacin. On initial examination no significant wheezing noted. Bilateral clear breath sounds with no wheezing except for decreased breath sounds in bilateral lower lung park. Interval update: No acute respiratory vents overnight. Improving oxygen requirements, weaned to room air with saturations maintained at 95% and above. Chest clear to auscultate. Echo normal systolic and diastolic function with reported RVSP at 30 to 35 mmHg. Plan: Continue Anoro inhaler along with Combivent 4 times daily as needed Continue oxygen supplementation to maintain O2 saturation above 90% and above, continue to wean as tolerated. Continue levofloxacin to complete a total of 5-day course from pulmonary standpoint # Thank you for involving pulmonary in this patient care. Will follow the patient in pulmonary clinic 2 to 4 weeks postdischarge.
[2024-11-18 09:51] LABS: Vitamin B12 220 pg/mL (239-931)
[2024-11-18] MEDS: EMPAGLIFLOZIN 10MG TABLET 10 MG PO (10:09)
--- NOTE | 2024-11-18 11:18 | EXP.DC.SUM ---
General Admission date:: 11/17/24 HPI HPI HPI: Mr. Barrera 49-year-old male who has been a long-term smoker, has had a fever for approximately 2 days. He has come to the emergency room with significant decreased saturations on room air and had to be placed on oxygen. Since he has been here has received several breathing treatments but oxygen saturations will go from 85% to 94% depending on how much she is talking.. He shows no signs of distress heart rate remains the same and respiratory rate does not come up and he does not have a cough. Chest x-ray shows a probable right lower lobe pneumonia. Due to an allergy to Keflex ER provider talked to the patient and he has been placed on Levaquin even though it does show an allergy to Cipro. Per the patient and per his chart he has taken this before Patient has an extensive past medical history that has some concerning factors. Patient presently uses a rolling walker due to a back problem that leaves him bent forward. History of 2 back surgeries and a broken broken pelvis in the past. Patient also has extensive documentation for foot wounds and hammertoes. Noting that he is seeing podiatry often. Other concerning feature is his hemoglobin is down slightly in the past in 2021 the patient's hemoglobin got to 6.9 required iron replacements noting splenomegaly and also a liver mass that per my chart has not been evaluated lately. Will get with the patient to find any more history or whether we do need to work this up. Also noting extensively high parathyroid hormone low testosterone and elevated blood sugars but no history of hemoglobin A1c being done. In the emergency room at this time the patient is stable except for dropping his saturations to 85% at times. But I do feel he needs to be admitted to continue with pulmonary toileting IV antibiotics as needed and to evaluate this accumulation of fluid in the right lung and/a history of a liver mass to make sure that this is not a neoplasm. Will consult pulmonary and and with his history of cardiac problems we will also consult cardiology to evaluate him. Added3:40 after patient been in the room. Was able to convince the patient to take his socks off and pull up his pants please note that significant peripheral vascular disease with thickening of the skin that was not highlighted in past notes. Do note that the patient had basically been seeing the manager of investigations in the past for hammertoes. But the patient says it has been a long time and from the length of the toenails I can see that he is telling the truth he had the same podiatry in a long time. Definitely a source of infection open wounds to the lower feet. Patient states he has been taking his Suboxone on a regular basis and not using illegal drugs since 201711/17/24: Podiatry Consult, patient admitted today earlier in the morning hours for shortness of breath with probable right lower lobe pneumonia. Patient has been seen by Podiatry before in 2022 but not since then. Patient has wounds to his Right medial ankle and left dorsal foot. Cleaned with wound hand rug cleaner and debrided with sterile curette. Plan to get B/L foot xrays and TWIN's. Hospital Course Hospital Course Hospital Course: Fili Barrera is a 49-year-old male who presented with fever and shortness of breath and was admitted for acute hypoxic respiratory failure, community-acquired pneumonia, HFpEF exacerbation. #Acute hypoxic respiratory failure ? Secondary to community-acquired pneumonia and HFpEF exacerbation. Weaned from 4L to room air. #Community-acquired pneumonia ? CT chest revealed right lower lobe pneumonia with associated effusion. WBC, vital stable. No signs of sepsis. ? Pulmonology consulted, clinically improved with levofloxacin. Discharged with 5 more days of levofloxacin. ? Will follow-up with pulmonology within 2 weeks. Recommended continuing Anoro Ellipta. #HFpEF exacerbation ? Bilateral pleural effusions, lower extremity pitting edema, BNP 7450. ? Diuresed with IV Lasix, net -5.8L. ? ECHO shows normal biventricular systolic function, borderline RV function. ? Cardiology consulted, with Lasix 40 mg daily, Jardiance 10 mg, and Kerendia 10 mg. #Lower extremities ulcers #Lower extremity venous insufficiency, stasis ? Left dorsal foot, right medial ankle ulcers present on admission. ? Podiatry consulted, s/p bedside sharp excisional full-thickness debridement. Follow-up cultures. ? A1c 5.3%, arterial ultrasound study unremarkable for PAD. ? Ulcers seem most consistent with venous stasis given location, and significant venous stasis changes in lower extremities including significant hemosiderin deposition. ? Unna boots applied, recommended leg elevation and compression stockings. ? Follow-up with podiatry within 2 weeks. #Microcytic anemia ? Hemoglobin 8.7, though down from 11.4 since March 2024. ? MCV elevated, B12 low 220. ? Discharged with cyanocobalamin 1000 mcg daily. #Opioid use disorder, in remission ? Continue home Suboxone 16/4 mg daily. #Hypothyroidism ? Continue home levothyroxine 25 mcg. TFT stable. #Anxiety/depression ? Continue home venlafaxine 225 mg daily. Questionnaires Raymond Link: Launch [facility] Website Exam Data for Last 24 hours Vital signs and Labs for Last 24 Hours: Temp Pulse Resp BP Pulse Ox O2 Del Method O2 Flow Rate 98.3 F 61 19 114/54 L 97 Room Air 2 11/18/24 07:50 11/18/24 07:50 11/18/24 07:50 11/18/24 07:50 11/18/24 07:50 11/18/24 07:57 11/18/24 06:40 Laboratory Results - last 24 hr 11/17/24 17:44: Hgb 9.0 L D, Hct 26.8 L, Lactate Dehydrogenase 170 L 11/18/24 06:04: WBC 4.2 L D, RBC 2.71 L, Hgb 8.7 L, Hct 26.4 L, MCV 97.4 H, MCH 32.1 H, MCHC 33.0, RDW 14.5, Plt Count 161, MPV 8.4, Neut % (Auto) 65.7, Lymph % (Auto) 24.6, [place] % (Auto) 7.8, Eos % (Auto) 0.9, Baso % (Auto) 0.5, Neut # (Auto) 2.8, Lymph # (Auto) 1.0, [place] # (Auto) 0.3, Eos # (Auto) 0.0, Baso # (Auto) 0.0, Sodium 134 L, Potassium 3.6, Chloride 91 L, Carbon Dioxide 37 H, Anion Gap 9.6, BUN 12, Creatinine 1.00, Estimated Creat Clear 121, Estimated GFR 80, Est GFR ( Amer) 97, Glucose 107 H, Calcium 8.3 L, Magnesium 1.9, Total Bilirubin 0.9, AST 16 L, ALT 9 L, Alkaline Phosphatase 99, Troponin I 0.15 H, NT-Pro-B Natriuret Pep 2630 H, Total Protein 6.2 L, Albumin 3.4 L, Globulin 2.8, Albumin/Globulin Ratio 1.2 11/18/24 : Iron 130, TIBC 263, Iron Saturation 49.53009, Ferritin 98.5, Vitamin B12 220 L I & O for Last 24 hours: Intake & Output 11/15/24 11/16/24 11/17/24 11/18/24 23:59 23:59 23:59 23:59 Intake Total 280 / 652 372 / 372 Output Total 5515 / 5515 500 / 500 Balance -5235 / -4863 -128 / -128 Weight 96.162 kg 94.064 kg 93.894 kg Microbiology Reports for the Last 24 Hours: Microbiology 11/17/24 07:34 Foot,Left - Wound Gram Stain - Final 11/17/24 07:34 Foot,Left - Wound Wound Culture - Preliminary 11/16/24 22:55 Blood Blood Culture - Preliminary NO GROWTH AFTER 24 HOURS 11/16/24 22:57 Blood Blood Culture - Preliminary NO GROWTH AFTER 24 HOURS Constitutional Constitutional: no acute distress and obese *Routine HEENT Exam Head: Present normocephalic Eye: Present EOMI and PERRL ENT: Present mucous membranes moist *Routine Neck Exam Neck: Present supple; Absent lymphadenopathy *Routine Respiratory Exam Respiratory: Present CTA bilaterally *Routine Cardiovascular Exam Cardiovascular: Present RRR *Routine Abdominal Exam Abdominal: Present soft and normoactive bowel sounds; Absent tenderness *Routine Extremities Exam Extremities: Present edema; Absent cyanosis or clubbing Comments: Significant venous stasis changes including hemosiderin deposition up to knees. *Routine Skin Exam Skin: Present warm; Absent rash *Routine Neurological Exam Neurological: Present alert and oriented X3 Results Data Completed and Pending Labs on day of discharge: Labs from last 24 hours 11/18/24 11/18/24 11/17/24 Unknown 06:04 17:44 WBC 4.2 L D RBC 2.71 L Hgb 8.7 L 9.0 L D Hct 26.4 L 26.8 L MCV 97.4 H MCH 32.1 H MCHC 33.0 RDW 14.5 Plt Count 161 MPV 8.4 Neut % (Auto) 65.7 Lymph % (Auto) 24.6 [place] % (Auto) 7.8 Eos % (Auto) 0.9 Baso % (Auto) 0.5 Neut # (Auto) 2.8 Lymph # (Auto) 1.0 [place] # (Auto) 0.3 Eos # (Auto) 0.0 Baso # (Auto) 0.0 Sodium 134 L Potassium 3.6 Chloride 91 L Carbon Dioxide 37 H Anion Gap 9.6 BUN 12 Creatinine 1.00 Estimated Creat Clear 121 Estimated GFR 80 Est GFR ( Amer) 97 Glucose 107 H Calcium 8.3 L Magnesium 1.9 Iron 130 TIBC 263 Iron Saturation 49.48307 Ferritin 98.5 Total Bilirubin 0.9 AST 16 L ALT 9 L Alkaline Phosphatase 99 Lactate Dehydrogenase 170 L Troponin I 0.15 H NT-Pro-B Natriuret Pep 2630 H Total Protein 6.2 L Albumin 3.4 L Globulin 2.8 Albumin/Globulin Ratio 1.2 Vitamin B12 220 L Preliminary micro results at discharge 11/17/24 07:34 Wound Culture - Preliminary Foot,Left - Wound 11/16/24 22:55 Blood Culture - Preliminary Blood NO GROWTH AFTER 24 HOURS 11/16/24 22:57 Blood Culture - Preliminary Blood NO GROWTH AFTER 24 HOURS DS: Diagnosis Discharge Diagnosis (1) Pneumonia: Status: Acute Code(s): J18.9 - Pneumonia, unspecified organism Qualifiers: Laterality: right Lung location: lower lobe of lung Pneumonia type: due to unspecified organism Qualified Code(s): J18.9 - Pneumonia, unspecified organism (2) Acute and chronic respiratory failure with hypoxia: Status: Acute Code(s): J96.21 - Acute and chronic respiratory failure with hypoxia (3) Bilateral pleural effusion: Status: Acute Code(s): J90 - Pleural effusion, not elsewhere classified Meds Home Medications and Allergies Home Medications ?Medication ?Instructions ?Recorded ?Confirmed ?Type buprenorphine 8 mg-naloxone 2 mg 2 tab sublingual DAILY addiction 06/21/18 11/17/24 History sublingual tablet ergocalciferol (vitamin D2) 1,250 1,250 mcg PO WEEKLY #9 caps 10/31/23 11/17/24 Rx mcg (50,000 unit) capsule umeclidinium 62.5 mcg-vilanterol 1 inh inhalation DAILY 90 days 02/18/24 11/17/24 Rx 25 mcg/actuation powdr for #180 ea inhalation (Anoro Ellipta) ipratropium 20 mcg-albuterol 100 2 puff inhalation BID 11/17/24 11/17/24 History mcg/actuation mist for inhalation (Combivent Respimat) levothyroxine 25 mcg tablet 25 mcg PO DAILY 11/17/24 11/17/24 History meclizine 25 mg tablet 25 mg PO DAILY PRN Dizziness 11/17/24 11/17/24 History omeprazole 20 mg capsule,delayed 20 mg PO DAILY 11/17/24 11/17/24 History release promethazine 25 mg tablet 25 mg PO Q8HP PRN Nausea And 11/17/24 11/17/24 History Vomiting venlafaxine 150 mg 150 mg PO DAILY 11/17/24 11/17/24 History capsule,extended release 24 hr venlafaxine 75 mg capsule,extended 75 mg PO DAILY 11/17/24 11/17/24 History release 24 hr aspirin 81 mg tablet,delayed 81 mg PO DAILY 30 days #30 tabs 11/18/24 Rx release cyanocobalamin (vitamin B-12) 1,000 mcg PO DAILY #30 caps 11/18/24 Rx 1,000 mcg capsule empagliflozin 10 mg tablet 10 mg PO DAILY 30 days #30 tabs 11/18/24 Rx (Jardiance) finerenone 10 mg tablet (Kerendia) 10 mg PO DAILY 30 days #30 tabs 11/18/24 Rx furosemide 40 mg tablet (Lasix) 40 mg PO DAILY 30 days #30 tabs 11/18/24 Rx levofloxacin 750 mg tablet 750 mg PO DAILY #10 tabs 11/18/24 Rx New Prescriptions to Start Prescriptions: Óscar Segura cyanocobalamin (vitamin B-12) Óscar Christopher empagliflozin [Jardiance] Ashwin,Óscar finerenone [Kerendia] Óscar Christopher furosemide [Lasix] Ashwin,Óscar levofloxacin Óscar Christopher Allergies Allergy/AdvReac Type Severity Reaction Status Date / Time cephalexin (From Keflex) Allergy Verified 10/28/24 09:59 ciprofloxacin (From Cipro) Allergy Verified 10/28/24 09:59 tramadol Allergy Verified 10/28/24 09:59 Discharge Plan Disposition Patient Disposition: Home, Self-Care Condition: Good Discharge Order Discharge Orders: Discharge Order (Routine); Ordered 11/18/24 Ordered By: Óscar Christopher Follow up Plan Follow up with: Binu Alanis APRN [Primary Care Provider, Family Practice] - Enter time for follow up Referral Note: Please call office for follow up appointment Sj Barrera PA [Physician Beef Splitter, Cardiology] - 12/02/24 10:45 am Cristina Thompson MD [Physician, Pulmonology] - 12/16/24 1:00 pm Kae Bhatt DPM [Staff Physician, Podiatry] - 1 week Referral Note: please call office for 1 week follow up appointment Prescriptions/Medication Reconciliation: New Jardiance 10 mg Tablet 10 mg PO DAILY 30 Days Qty: 30 0RF levofloxacin 750 mg tablet 750 mg PO DAILY Qty: 10 0RF Kerendia 10 mg tablet 10 mg PO DAILY 30 Days Qty: 30 0RF furosemide [Lasix] 40 mg tablet 40 mg PO DAILY 30 Days Qty: 30 0RF cyanocobalamin (vitamin B-12) 1,000 mcg capsule 1,000 mcg PO DAILY Qty: 30 0RF Continued Anoro Ellipta 62.5-25 mcg/actuation blister with device 1 inh inhalation DAILY 90 Days Qty: 180 2RF ergocalciferol (vitamin D2) 1,250 mcg (50,000 unit) capsule 1,250 mcg PO WEEKLY Qty: 9 3RF buprenorphine-naloxone 8 MG-2 tablet, sublingual 2 tab SL DAILY Patient Comments: pt takes one in the morning and then one after lunch. 95097@0122 Rx Instructions: SUBOXONE 8/2 MG, TAKE 2 TABLETS DAILY PER MEENA @ [facility] promethazine 25 mg tablet 25 mg PO Q8HP PRN (Reason: Nausea And Vomiting) Rx Instructions: TAKE ONE TABLET BY MOUTH EVERY 8 HOURS NEEDED FOR NAUSEA/VOMITING Combivent Respimat 20-100 mcg/actuation mist 2 puff inhalation BID Rx Instructions: INHALE 2 PUFFS BY MOUTH 2 TIMES A DAY FOR BREATHING PROBLEMS meclizine 25 mg tablet 25 mg PO DAILY PRN (Reason: Dizziness) omeprazole 20 mg capsule,delayed release(DR/EC) 20 mg PO DAILY levothyroxine 25 mcg tablet 25 mcg PO DAILY Rx Instructions: TAKE ONE TABLET BY MOUTH ONCE A DAY venlafaxine 75 mg capsule,extended release 24hr 75 mg PO DAILY Rx Instructions: TAKE ONE CAPSULE BY MOUTH ONCE A DAY WITH 150MG CAPSULE venlafaxine 150 mg capsule,extended release 24hr 150 mg PO DAILY Rx Instructions: TAKE ONE CAPSULE BY MOUTH WITH FOOD ONCE A DAY WITH 75 MG CAPSULE aspirin 81 MG tablet,delayed release (DR/EC) 81 mg PO DAILY 30 Days Qty: 30 0RF Discontinued furosemide 40 mg tablet 40 mg PO DAILY PRN (Reason: Edema) Rx Instructions: TAKE 1 TABLET BY MOUTH ONCE A DAY NEEDED Problem Reconciliation Problems Reviewed?: Yes Patient Discharge Instructions Patient Instructions: Pneumonia--Adult, Heart Failure, Heart-Healthy Diet, High-Calorie, High-Protein Diet, Stop Light Heart Failure Print Language: Citizen Of The [place] Providers Primary Care Provider: Binu Alanis Admit Provider: Jono Durán Attending Provider: Jono Durán
--- NOTE | 2024-11-18 12:17 | PC.NURSE ---
patient room air oxygen saturation 95%, denies shortness of breath of chest discomfort.
[2024-11-19 16:22] LABS: Folate, Hemolysate 224.0 ng/mL (Not Estab.); Folate, RBC 827 ng/mL (>498); Hematocrit 27.1 % (37.5-51.0)
--- NOTE | 2024-11-20 10:42 | SW/DCPLANNER ---
Phoned patient x2. Left message with name and a call back number. Bruno Black
== END 2024-11-18 13:23 | disposition home or self-care (01) | DRG 166 ==
LOC: ER 23:54 → 2ND 11-17 07:41
PROVIDERS: Nurse Practitioner Family; Physician Assistant; Admitting Provider Internal Medicine Adolescent Medicine; Emergency Provider Student in an Organized Health Care Education/Training Program; PCP Nurse Practitioner Family; Visit Provider Internal Medicine Adolescent Medicine
DX: J18.9 Pneumonia, unspecified organism (principal); I50.33 Acute on chronic diastolic (congestive) heart failure; J96.21 Acute and chronic respiratory failure with hypoxia; J44.0 Chronic obstructive pulmonary disease with (acute) lower respiratory infection; L97.518 Non-pressure chronic ulcer of other part of right foot with other specified severity; C85.9A Non-Hodgkin lymphoma, unspecified, in remission; I87.8 Other specified disorders of veins; D50.9 Iron deficiency anemia, unspecified; F11.11 Opioid abuse, in remission; E03.9 Hypothyroidism, unspecified; F17.210 Nicotine dependence, cigarettes, uncomplicated; G47.30 Sleep apnea, unspecified; I25.10 Atherosclerotic heart disease of native coronary artery without angina pectoris; I73.9 Peripheral vascular disease, unspecified; S91.001A Unspecified open wound, right ankle, initial encounter; S91.302A Unspecified open wound, left foot, initial encounter; L60.3 Nail dystrophy; L57.0 Actinic keratosis; B35.1 Tinea unguium; M20.41 Other hammer toe(s) (acquired), right foot; I11.0 Hypertensive heart disease with heart failure; I27.22 Pulmonary hypertension due to left heart disease; E78.5 Hyperlipidemia, unspecified; E29.1 Testicular hypofunction; E21.3 Hyperparathyroidism, unspecified; R16.1 Splenomegaly, not elsewhere classified; R16.0 Hepatomegaly, not elsewhere classified; Z71.6 Tobacco abuse counseling; Z95.5 Presence of coronary angioplasty implant and graft; Z79.82 Long term (current) use of aspirin; Z79.890 Hormone replacement therapy; Z79.899 Other long term (current) drug therapy; Z88.1 Allergy status to other antibiotic agents; Z88.5 Allergy status to narcotic agent
CPT/HCPCS: 0223U; 36415; 71045; 71275; 73610; 73630; 76705; 80053; 81596; 82397; 82607; 82728; 82747; 83036; 83540; 83550; 83615; 83735; 83880; 84484; 85007; 85014; 85018; 85025; 85048; 85049; 85610; 85651; 86140; 87040; 87070; 87077; 87186; 87205; 89220; 93005; 93306; 93923; 94640; 94761; 97162; 97165; J0574; J1650; J1938; J1956; Q9967

== ENCOUNTER 2024-12-15 12:24 | Emergency (ER) | payer MEDICARE, SELFPAY ==
--- NOTE | 2024-12-15 12:31 | ECG_ITS ---
APPROVED REPORT Exam: Resting ECG HR:76 bpm ECG Measurements Heart Rate 76 AXES SD 143 P 63 QRSd 85 QRS 78 QT 347 T 61 QTc 378 Conclusion SINUS RHYTHM NORMAL ECG UNCONFIRMED REPORT Electronically signed by : KILLIAN SARAVIA, 12/15/2024 23:03:15
--- OUTSIDE RECORDS SUMMARY | 2024-12-15 12:33 | XMS_ITS | Clinical Summary ---
Author Organization [facility] Address [address] [place] [address] Care Team Providers Care Sociology Faculty Member Name Role Phone Janell Cheung APRN Primary Care Provider [phone] Allergies Active Allergy Reactions Criticality Noted Date [...] FIT Testing (1 year) 2022 COVID-19 Vaccine ( - 2023-2 5 season) 2024 INFLUENZA VACCINE 01/07/2025 Pneumococcal Vaccine 0-49 Aged Out No longer eligible based on patient's age to complete this topic Insurance Care Teams Sociology Faculty Member Relationship Specialty Start Date End Date Janell Cheung APRN [address] [place] [address] PCP - General Family Medicine 03/13/16
--- OUTSIDE RECORDS SUMMARY | 2024-12-15 12:33 | XMS_ITS | Patient Health Record ---
Author Organization [id number] [facility] Address [address] [place], [place] [id number] Support Name Relationship Address Phone guy barrera Emergency Contact Unknown [phone] Fili Barrera Guarantor Unknown [phone] Reason For Referral No Information Medications Medication [...] Coverage End Date JONATHAN NON-HMO [address] [place], [place] [id number] Fili Mejias Self - patient is the insured 7
[2024-12-15 12:35] VITALS: BP 146/79; PULSE 82; RESP 12; TEMP 37.3; O2SAT 99; BMI 30.1
[2024-12-15 12:48] LABS: Hematocrit 30.8 % (42.0-52.0); Hemoglobin 10.2 g/dL (14.1-18.0); Immature Granulocytes % 0.5 %; Mean Corpuscular HGB Conc 33.1 g/dL (31.8-35.4); Mean Corpuscular Hemoglobin 32.6 pg (27.0-31.2); Mean Corpuscular Volume 98.4 fl (80-94); Nucleated Red Blood Cells % 0 %; Platelet Count 128 K/mm3 (142-424); Red Blood Count 3.13 M/mm3 (4.60-6.20); Red Cell Distribution Width-SD 55.2 fL; White Blood Count 4.3 K/mm3 (4.8-10.8)
--- NOTE | 2024-12-15 12:55 | ED_ITS ---
<Statement entered by Sj Wilcox MD - 12/15/24 19:04> I was consulted by the KEV, and we discussed the complexity of the problems being addressed. I approve the treatment and management plan for this patient's care in the emergency department, thus performing a substantive portion of the medical decision making. Sj Wilcox MD Discharge Plan Disposition Patient Disposition: Home, Self-Care Prescriptions Prescriptions: New meclizine 25 mg tablet 25 mg PO TID PRN (Reason: dizziness) 20 Days Qty: 60 0RF No Action Anoro Ellipta 62.5-25 mcg/actuation blister with device 1 inh inhalation DAILY 90 Days Qty: 180 2RF ergocalciferol (vitamin D2) 1,250 mcg (50,000 unit) capsule 1,250 mcg PO WEEKLY Qty: 9 3RF promethazine 25 mg tablet See Rx Instructions .ROUTE .COMPLEX Qty: 30 0RF Dose Instruction: TAKE 1 TABLET BY MOUTH EVERY 8 HOURS NEEDED FOR nausea AND vomiting Rx Instructions: TAKE 1 TABLET BY MOUTH EVERY 8 HOURS NEEDED FOR nausea AND vomiting buprenorphine-naloxone 8 MG-2 tablet, sublingual 2 tab SL DAILY Patient Comments: pt takes one in the morning and then one after lunch. [id number] Rx Instructions: SUBOXONE 8/2 MG, TAKE 2 TABLETS DAILY PER [facility] Combivent Respimat 20-100 mcg/actuation mist 2 puff inhalation BID Rx Instructions: INHALE 2 PUFFS BY MOUTH 2 TIMES A DAY FOR BREATHING PROBLEMS meclizine 25 mg tablet 25 mg PO DAILY PRN (Reason: Dizziness) omeprazole 20 mg capsule,delayed release(DR/EC) 20 mg PO DAILY levothyroxine 25 mcg tablet 25 mcg PO DAILY Rx Instructions: TAKE ONE TABLET BY MOUTH ONCE A DAY venlafaxine 75 mg capsule,extended release 24hr 75 mg PO DAILY Rx Instructions: TAKE ONE CAPSULE BY MOUTH ONCE A DAY WITH 150MG CAPSULE venlafaxine 150 mg capsule,extended release 24hr 150 mg PO DAILY Rx Instructions: TAKE ONE CAPSULE BY MOUTH WITH FOOD ONCE A DAY WITH 75 MG CAPSULE Jardiance 10 mg Tablet 10 mg PO DAILY 30 Days Qty: 30 0RF Kerendia 10 mg tablet 10 mg PO DAILY 30 Days Qty: 30 0RF aspirin 81 MG tablet,delayed release (DR/EC) 81 mg PO DAILY 30 Days Qty: 30 0RF furosemide [Lasix] 40 mg tablet 40 mg PO DAILY 30 Days Qty: 30 0RF cyanocobalamin (vitamin B-12) 1,000 mcg capsule 1,000 mcg PO DAILY Qty: 30 0RF Referrals Follow up/Referrals: Binu Alanis APRN [Primary Care Provider, [facility]] - See instructions Clinical Impressions Clinical Impression: Vertigo Fatigue Qualifiers: Fatigue type: due to exposure Encounter type: initial encounter Qualified Code(s): T73.2XXA - Exhaustion due to exposure, initial encounter Instructions Patient Instructions: DI for Vertigo, DI for Fatigue Print Language Print Language: Azerbaijani Discharge ED Provider: Sj Wilcox Adult HPI <Lashaun Grey (ED), JAYCE - Last Filed: 12/15/24 16:14> General Chief complaint: Dizziness Stated complaint: Weakness, vertigo, Low B12, low blood count Time Seen by Provider: 12/15/24 12:35 Mode of Arrival: Ambulatory Source of Information: Patient Description of Symptoms (Recalled from ER Triage Doc. by RN): patient states he has been dealing with vertigo and has been extra nauseated and dizzy for one week. History of Present Illness HPI narrative: 49-year-old male presents to the ED today for complaint of feeling weak, fatigued, having vertigo over the past few days. Says he has history of low B12 and low blood counts. Says he has had history of getting iron infusions and blood transfusions. Patient was not sure if he could take his meclizine or not. Looked at previous time patient was here and he had CTAs of head and neck that were negative. Patient has had visits with pulmonology, cardiology and ENT. Patient is alert and oriented x 4 Related Data Home Medications ?Medication ?Instructions ?Recorded ?Confirmed buprenorphine 8 mg-naloxone 2 mg 2 tab sublingual CHAITANYA Y addiction 06/21/18 12/09/24 sublingual tablet ipratropium 20 mcg-albuterol 100 2 puff inhalation BID 11/17/24 12/09/24 mcg/actuation mist for inhalation (Combivent Respimat) levothyroxine 25 mcg tablet 25 mcg PO DAILY 11/17/24 0 12/09/24 meclizine 25 mg tablet 25 mg PO DAILY PRN Dizziness 11/17/24 12/09/24 omeprazole 20 mg capsule,delayed 20 mg PO DAILY 12/09/24 release venlafaxine 150 mg 150 mg PO DAILY 11/17/2406/03 capsule,extended release 24 hr venlafaxine 75 mg capsule,extended 75 mg PO DAILY 11/0712/09/24 release 24 hr Previous Rx's ?Medication ?Instructions ?Recorded ergocalciferol (vitamin D2) 1,250 1,250 mcg PO WEEKLY #9 caps 10/31/23 mcg (50,000 unit) capsule umeclidinium 62.5 mcg-vilanterol 1 inh inhalation CHAITAYNA Y 90 days 02/18/24 25 mcg/actuation powdr for #180 ea inhalation (Anoro Ellipta) aspirin 81 mg tablet,delayed 81 mg PO DAILY 30 days #3 0 tabs 11/18/24 release cyanocobalamin (vitamin B-12) 1,000 mcg PO DAILY #30 c aps 11/18/24 1,000 mcg capsule empagliflozin 10 mg tablet 10 mg PO DAILY 30 days #30 tabs 11/18/24 (Jardiance) finerenone 10 mg tablet (Kerendia) 10 mg PO DAILY 30 d ays #30 tabs 11/18/24 furosemide 40 mg tablet (Lasix) 40 mg PO DAILY 30 days #30 tabs 11/18/24 promethazine 25 mg tablet See Rx Instructions .Route 0 12/12/24 .COMPLEX #30 tabs meclizine 25 mg tablet 25 mg PO TID PRN dizziness 2 0 days 12/15/24 #60 tabs Allergies Allergy/AdvReac Type Severity Reaction Status Date / Time cephalexin (From Keflex) Allergy Verified 12/09/24 14:56 ciprofloxacin (From Cipro) Allergy Verified 12/09/24 14:56 tramadol Allergy Verified 12/09/24 14:56 PFS <Lashaun Grey (ED), [employer] - Last Filed: 12/15/24 16:14> [facility], LAT[facility] Disclaimer: The information contained in this section may have been updated after the patient was seen, as this information can be updated by other users. Medical History Vertigo Acute and chronic respiratory failure with hypoxia Peripheral vascular disease of foot Mixed hyperlipidemia COPD mixed type Hypothyroidism Hyperparathyroidism History of hypokalemia Tobacco abuse disorder Tobacco abuse counseling Hilar lymphadenopathy Mediastinal lymphadenopathy Screening for lung cancer COPD (chronic obstructive pulmonary disease) Smoking greater than 30 pack years Dyspnea on exertion MRSA (methicillin resistant Staphylococcus aureus) Arthritis CHF (congestive heart failure) PVD (peripheral vascular disease) PAD (peripheral artery disease) Myocardial infarction Hyperlipidemia Hypertension CAD (coronary artery disease) Atherosclerosis History of anemia Edema of both lower extremities 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 Insomnia Edema Surgical History Hx of neck surgery lipoma History of back surgery x2-discectomy Upper back Lower back History of esophagogastroduodenoscopy (EGD) History of coronary artery stent placement Hx of cholecystectomy History of cardiac cath History of appendectomy History of colonoscopy Family History Father Cancer Mother Cancer Other Alcoholism Coronary artery disease Diabetes Heart attack Hyperlipidemia Hypertension Kidney disease Social History Smoking Status: Current every day smoker tobacco type: cigarettes packs per day: 1 alcohol intake: former year quit: soci substance use type: former substance user and painkillers current occupational status: disabled Travel in the last 8 weeks?: None adopted: No caregiver/support person: No foster care: No household members: family housing: house lives independently: Yes marital status: education level: high school current occupational exposures/hazards: No caffeine: Yes special bety needs: No agree to transfusion: No do you feel safe at home: Yes victim of physical abuse: No victim of emotional abuse: No victim of sexual abuse: No would you like helpful sources: No Have you lived/traveled outside US in past 30 days?: No Contact w/someone who lives/traveled outside US past 30 days?: No Exposure to someone with infectious disease in past 14 days?: No Do you have a fever (greater than 100.4 F or 38 C)?: No Have you tested positive for COVID-19?: No Exposed to someone with COVID-19 in past 14 days?: No Do you have a sore throat?: No Do you have a cough?: No Do you have any weakness?: No Do you have any diarrhea?: No Are you experiencing any unusual bleeding?: No Do you have any muscle aches/pain?: No Do you have any abdominal pain?: No Are you experiencing loss of taste or smell?: No Other Medical History Have you received the Flu Vaccine for this season: No Have you received the Pneumonia Vaccine: No <Lashaun Kilaristides (ED), [employer] - Last Filed: 12/15/24 16:14> ROS Obtained: Yes Systems reviewed as appropriate & no additional complaints except as documented Constitutional Constitutional: Reports as per HPI Physical Exam <Lashaun Chasearistides (ED), [employer] - Last Filed: 12/15/24 16:14> General General appearance: alert and in no apparent distress Head Head exam: atraumatic and normocephalic Eye Eye exam: Present normal appearance, PERRL and EOMI ENT ENT exam: Present normal oropharynx and mucous membranes moist Neck Neck exam: Present full ROM and trachea midline Respiratory Respiratory exam: Present normal lung sounds bilaterally Cardiovascular Cardiovascular exam: Present regular rate, normal rhythm, normal heart sounds, +S1 and +S2 Abdominal Exam Abdominal exam: Present soft and normal bowel sounds Extremities Exam Extremities exam: Present normal inspection, full ROM and normal capillary refill Neurological Exam Neurological exam: Present alert, oriented X3 and normal gait Skin Skin exam: Present warm, dry and intact Medical Decision Making <Lashaun Kilaristides (ED), [employer] - Last Filed: 12/15/24 16:14> Medical Records Screening: Per USPSTF and CDC recommendations, given the prevalence of disease in our region, it is our hospital?s policy to screen for HIV and viral Hepatitis for all patients aged 18 and over and those with ongoing risk factors. Juan C Inquiry Pt receiving controlled substance: No Juan C was queried for this patient: No Vital Signs: 12/15/24 12:35 12/15/24 13:01 12/15/24 13:30 Temperature 99.1 F Temperature Source Oral Pulse Rate 82 78 Pulse Rate [Right Radial] 82 Respiratory Rate 12 12 12 Blood Pressure 114/64 115/69 Blood Pressure [Right Arm] 146/79 H Blood Pressure Mean Blood Pressure Mean [Right Arm] 101 Blood Pressure Source Blood Pressure Source [Right Arm] Automatic Cuff Blood Pressure Position Blood Pressure Position [Right Arm] Sitting 02 Sat by Pulse Oximetry 99 95 95 Oxygen Delivery Method Room Air 12/15/24 14:00 12/15/24 14:30 12/15/24 16:08 Temperature 98.5 F Temperature Source Oral Pulse Rate 70 71 77 Pulse Rate [Right Radial] Respiratory Rate 12 10 L 15 Blood Pressure 149/68 H 138/80 140/75 Blood Pressure [Right Arm] Blood Pressure Mean 99 Blood Pressure Mean [Right Arm] Blood Pressure Source Automatic Cuff Blood Pressure Source [Right Arm] Blood Pressure Position Supine Blood Pressure Position [Right Arm] 02 Sat by Pulse Oximetry 97 97 Oxygen Delivery Method Room Air Lab Data Lab Results 12/15/24 12:38: WBC 4.3 L, RBC 3.13 L, Hgb 10.2 L, Hct 30.8 L, MCV 98.4 H, MCH 32.6 H, MCHC 33.1, RDW 15.4, Plt Count 128 L, MPV 8.4, Neut % (Auto) 71.6, Lymph % (Auto) 22.5, Norton % (Auto) 4.0, Eos % (Auto) 0.9, Baso % (Auto) 0.5, Neut # (Auto) 3.1, Lymph # (Auto) 1.0, Norton # (Auto) 0.2, Eos # (Auto) 0.0, Baso # (Auto) 0.0, Sodium 135 L, Potassium 4.0, Chloride 101, Carbon Dioxide 28, Anion Gap 10.0, BUN 19, Creatinine 0.80, Estimated Creat Clear 149, Estimated GFR 104, Est GFR ( Amer) 125, Glucose 128 H, Calcium 8.9, Magnesium 1.8, Total Bilirubin 0.4, AST 20, ALT 11 L, Alkaline Phosphatase 121, Troponin I < 0.01, Total Protein 7.2, Albumin 4.3, Globulin 2.9, Albumin/Globulin Ratio 1.5, Lipase 36, TSH 2.53 12/15/24 15:01: Troponin I < 0.01 12/15/24 12:38 12/15/24 12:38 Orders (Tests/Meds): ED MEDICATIONS Discontinued Medications Generic Name Dose Route Start Last Admin Trade Name Freq PRN Reason Stop Dose Admin Meclizine HCl 25 mg 12/15/24 13:00 12/15/24 13:10 Meclizine 25mg Tablet PO 12/15/24 13:01 25 mg ONCE ONE Administration Ondansetron HCl 4 mg 12/15/24 13:00 12/15/24 13:09 Ondansetron 4mg Odt SL 12/15/24 13:01 4 mg ONCE ONE Administration ORDERS Category Date Time Status CT head/brain wo con Stat Cat Scan 12/15/24 12:56 Completed CMP [Comprehensive Metabolic Panel] Stat Lab 12/15/24 12:38 Completed Complete Blood Count Auto Diff Stat Lab 12/15/24 12:38 Completed Lipase Stat Lab 12/15/24 12:38 Completed Magnesium Stat Lab 12/15/24 12:38 Completed TSH [Thyroid Stimulating Hormone] Stat Lab 12/15/24 12:38 Completed Trop I [Troponin I] Stat Lab 12/15/24 12:38 Completed Troponin I Q3H Lab 12/15/24 15:01 Completed Medical Decision Narrative: patient is a 49-year-old male presenting to the emergency department for evaluation of vertigo, fatigue. Patient is hemodynamically stable and nontoxic- appearing upon arrival, afebrile. Differential diagnosis includes vertigo. Workup will be conducted with hematologic labs, specific imaging. Initial inventions include nausea meds and meclizine. Initial workup reviewed by oh hematologic labs are nonactionable. CT scan of head was negative. Discussed case with Dr. Wilcox. Troponins were negative. Patient will follow-up with his ENT for physical therapy for the vertigo. Patient safe for discharge home. <Sj Wilcox MD - Last Filed: 12/15/24 13:00> Vital Signs: 12/15/24 12:35 12/15/24 13:01 12/15/24 13:30 Temperature 99.1 F Temperature Source Oral Pulse Rate 82 78 Pulse Rate [Right Radial] 82 Respiratory Rate 12 12 12 Blood Pressure 114/64 115/69 Blood Pressure [Right Arm] 146/79 H Blood Pressure Mean Blood Pressure Mean [Right Arm] 101 Blood Pressure Source Blood Pressure Source [Right Arm] Automatic Cuff Blood Pressure Position Blood Pressure Position [Right Arm] Sitting 02 Sat by Pulse Oximetry 99 95 95 Oxygen Delivery Method Room Air 12/15/24 14:00 12/15/24 14:30 12/15/24 16:08 Temperature 98.5 F Temperature Source Oral Pulse Rate 70 71 77 Pulse Rate [Right Radial] Respiratory Rate 12 10 L 15 Blood Pressure 149/68 H 138/80 140/75 Blood Pressure [Right Arm] Blood Pressure Mean 99 Blood Pressure Mean [Right Arm] Blood Pressure Source Automatic Cuff Blood Pressure Source [Right Arm] Blood Pressure Position Supine Blood Pressure Position [Right Arm] 02 Sat by Pulse Oximetry 97 97 Oxygen Delivery Method Room Air Lab Data Lab Results 12/15/24 12:38: WBC 4.3 L, RBC 3.13 L, Hgb 10.2 L, Hct 30.8 L, MCV 98.4 H, MCH 32.6 H, MCHC 33.1, RDW 15.4, Plt Count 128 L, MPV 8.4, Neut % (Auto) 71.6, Lymph % (Auto) 22.5, Norton % (Auto) 4.0, Eos % (Auto) 0.9, Baso % (Auto) 0.5, Neut # (Auto) 3.1, Lymph # (Auto) 1.0, Norton # (Auto) 0.2, Eos # (Auto) 0.0, Baso # (Auto) 0.0, Sodium 135 L, Potassium 4.0, Chloride 101, Carbon Dioxide 28, Anion Gap 10.0, BUN 19, Creatinine 0.80, Estimated Creat Clear 149, Estimated GFR 104, Est GFR ( Amer) 125, Glucose 128 H, Calcium 8.9, Magnesium 1.8, Total Bilirubin 0.4, AST 20, ALT 11 L, Alkaline Phosphatase 121, Troponin I < 0.01, Total Protein 7.2, Albumin 4.3, Globulin 2.9, Albumin/Globulin Ratio 1.5, Lipase 36, TSH 2.53 12/15/24 15:01: Troponin I < 0.01 Orders (Tests/Meds): ED MEDICATIONS Discontinued Medications Generic Name Dose Route Start Last Admin Trade Name Freq PRN Reason Stop Dose Admin Meclizine HCl 25 mg 12/15/24 13:00 12/15/24 13:10 Meclizine 25mg Tablet PO 12/15/24 13:01 25 mg ONCE ONE Administration Ondansetron HCl 4 mg 12/15/24 13:00 12/15/24 13:09 Ondansetron 4mg Odt SL 12/15/24 13:01 4 mg ONCE ONE Administration ORDERS Category Date Time Status CT head/brain wo con Stat Cat Scan 12/15/24 12:56 Completed CMP [Comprehensive Metabolic Panel] Stat Lab 12/15/24 12:38 Completed Complete Blood Count Auto Diff Stat Lab 12/15/24 12:38 Completed Lipase Stat Lab 12/15/24 12:38 Completed Magnesium Stat Lab 12/15/24 12:38 Completed TSH [Thyroid Stimulating Hormone] Stat Lab 12/15/24 12:38 Completed Trop I [Troponin I] Stat Lab 12/15/24 12:38 Completed Troponin I Q3H Lab 12/15/24 15:01 Completed ECG Data Tracing #1: I reviewed this ECG and interpreted as documented below: Normal sinus rhythm. No ST elevation or depression. QTc normal at 378 Critical Care <Lashaun Grey (ED), [employer] - Last Filed: 12/15/24 16:14> Critical Care Time Critical Care Time: No
--- NOTE | 2024-12-15 12:56 | CT_ITS ---
FINAL REPORT TECHNIQUE: Thin section axial images were obtained from skull base to vertex without contrast. Coronal reconstruction images were obtained from the axial data. Exam was performed using dose reduction techniques such as automated exposure control, adjustment of the mA and kV according to patient size, and use of iterative reconstruction technique. CLINICAL HISTORY: dizzy COMPARISON: 09/29/2024 report FINDINGS: There is no mass effect or midline shift. There is no hydrocephalus. There is no intracranial hemorrhage. The posterior fossa is without acute abnormality. The basilar cisterns are preserved. The soft tissues are without acute abnormality. No acute osseous abnormality is identified. IMPRESSION: No acute intracranial abnormality. Reviewed, Interpreted and Dictated by Maggy Mayers MD Transcribed by Lori Gottlieb Authenticated and [facility]
[2024-12-15 12:58] LABS: Albumin Level 4.3 g/dl (3.5-5.0); Chloride 101 mmol/L (98-107)
[2024-12-15 12:59] LABS: Potassium 4.0 mmoL/L (3.5-5.1); Sodium 135 mmol/L (136-145)
[2024-12-15 13:01] VITALS: BP 114/64; PULSE 82; RESP 12; O2SAT 95
[2024-12-15 13:01] LABS: Blood Urea Nitrogen 19 mg/dl (9-20); Creatinine Clearance Estimated 149 mL/min (50-200); Creatinine,Serum 0.80 mg/dl (0.66-1.25); Estimated Glomerular Filt Rate 104 ml/min (>60); GFR (African American) 125 ML/MIN (>60)
[2024-12-15 13:02] LABS: Alanine Aminotransferase 11 U/L (12-78); Albumin/Globulin Ratio 1.5 (1.1-1.8); Alkaline Phosphatase 121 U/L (38-126); Anion Gap 10.0 mEq/L (5-15); Aspartate Amino Transferase 20 U/L (17-59); Bilirubin,Total 0.4 mg/dl (0.2-1.3); Calcium 8.9 mg/dl (8.4-10.2); Carbon Dioxide 28 mmol/L (22.0-30.0); Globulin 2.9 g/dL (1.3-3.2); Glucose 128 mg/dl (74-100); Total Protein,Serum 7.2 g/dl (6.3-8.2)
[2024-12-15] MEDS: ONDANSETRON 4MG ODT 4 MG SL (13:09)
[2024-12-15] MEDS: MECLIZINE 25MG TABLET 25 MG PO (13:10)
[2024-12-15 13:15] LABS: Troponin I < 0.01 ng/ml (0.00-0.034)
[2024-12-15 13:30] VITALS: BP 115/69; PULSE 78; RESP 12; O2SAT 95
[2024-12-15 13:48] LABS: Lipase 36 U/L (23-300); Magnesium 1.8 mg/dl (1.6-2.3)
[2024-12-15 14:00] VITALS: BP 149/68; PULSE 70; RESP 12; O2SAT 97
[2024-12-15 14:20] LABS: Thyroid Stimulating Hormone 2.53 uIU/mL (0.465-4.68)
[2024-12-15 14:30] VITALS: BP 138/80; PULSE 71; RESP 10; O2SAT 97
[2024-12-15 15:42] LABS: Troponin I < 0.01 ng/ml (0.00-0.034)
[2024-12-15 16:08] VITALS: BP 140/75; PULSE 77; RESP 15; TEMP 36.9; O2SAT 97
== END 2024-12-15 16:09 | disposition home or self-care (01) ==
PROVIDERS: Nurse Practitioner; Emergency Provider Student in an Organized Health Care Education/Training Program; PCP Nurse Practitioner Family
DX: R42 Dizziness and giddiness (principal); T73.2XXA Exhaustion due to exposure, initial encounter; F17.210 Nicotine dependence, cigarettes, uncomplicated; J44.9 Chronic obstructive pulmonary disease, unspecified
CPT/HCPCS: 70450; 80053; 83690; 83735; 84443; 84484; 85025; 93005; 99284; Q0162

== ENCOUNTER 2024-12-22 00:41 | Emergency (ER) | payer MEDICARE, SELFPAY ==
[2024-12-22 00:57] VITALS: BP 131/73; PULSE 93; RESP 16; TEMP 36.9; O2SAT 97; BMI 30.7
--- NOTE | 2024-12-22 00:58 | XR_ITS ---
PROCEDURE INFORMATION: Exam: XR Chest Exam date and time: 12/22/2024 1:00 AM Age: 49 years old Clinical indication: Cough and fever; Additional info: Fever cough copd TECHNIQUE: Imaging protocol: Radiologic exam of the chest. Views: 2 views. Total images: 2 COMPARISON: CT ANGIO CHEST PE PROTOCOL 11/16/2024 11:55 PM FINDINGS: Lungs: Prior right basilar consolidation has resolved. Nonspecific mild accentuation of bronchovascular markings. No focal airspace consolidation or vascular congestion. No pulmonary interstitial edema. Calcified pulmonary granuloma. Pleural spaces: Prior right pleural effusion has resolved. No pneumothorax. Heart/Mediastinum: Unremarkable. No cardiomegaly. No mediastinal widening or hilar enlargement. Bones/joints: Mild degenerative changes of the thoracic spine. Stable chest wall structures. IMPRESSION: 1. Interval resolved right basilar consolidation and right pleural effusion. 2. Interval nonspecific mild accentuation of bronchovascular markings can be seen with volume overload or pneumonitis.
[2024-12-22 01:11] LABS: Coronavirus 19, PCR Not Detected (NotDetected); Influenza A, PCR Not Detected (NotDetected); Influenza B, PCR Not Detected (NotDetected)
--- OUTSIDE RECORDS SUMMARY | 2024-12-22 01:39 | XMS_ITS | Continuity of Care Document ---
Author Organization [facility]. If a dditional information is needed, contact Health Information Management at [phone] Address [address] [place] [address] Phone Care Team Providers Care Furnace Mechanic Helper Name Role Phone Unavailable Unavailable Unavailable Problems Acute non-ST segment elevati on myocardial infarction Onset:06-Aug-2016 Susan Laws Status:Acute Comments:Onset Date: Hyperlipidemia Onset:06-Aug-2016 Susan Laws Status:Acute Comments:Onset Date: Chest pain Onset:06-Aug-2016 Susan Laws Status:Acute Comments:Onset Date: Hypertensive disorder Onset:06-Aug-2016 Susan Laws Status:Acute Comments:Onset Date: Allergies and Adverse Reactions ciprofloxacin HCl From Cipro (Allergy) Onset: 05-Aug-2016 Reaction:Unknown Cephalexin Monohydrate From Keflex(Allergy) Onset: 05-Aug-2016 Reaction:Swelling ciprofloxacin(Allergy) Onset: 05-Aug-2016 Reaction:Unknown tramadol(Allergy) Onset: 05-Aug-2016 Reaction:Hives Medications Brilinta_BRIL90TA2-AOM;90 MG ORAL Two Times a Day Start:07-Aug-2016 Comments:90 MG PO BID Ranexa_RANE500T3-AOM;500 MG ORAL Two Times a Day Start:07-Aug-2016 Comments:500 MG PO BID Lipitor_LIPI80TA-AOM;80 MG O RAL Daily Start:07-Aug-2016 Comments:80 MG PO DAILY Karthikeyan [facility] Aspirin_ASP I-329-AOM;81 MG ORAL Daily Start:07-Aug-2016 Comments:81 MG PO DAILY Diovan;160 MG ORAL Daily Start:07-Aug-2016 Comments:160 MG PO DAILY Coreg_CARV6.25-AOM;6.25 MG O RAL Start:07-Aug-2016 Comments:6.25 MG PO Norvasc_AMLO5TAB47-AOM;5 MG ORAL Daily Start:05-Aug-2016 Status:Aborted Comments:5 MG PO DAILY Effexor XR;150 MG ORAL Daily Start:05-Aug-2016 Comments:150 MG PO DAILY Nexium_NEXI20CA-AOM;20 MG OR AL Daily Start:05-Aug-2016 Comments:20 MG PO DAILY Renax;1 TAB ORAL Two Times a Day Start:05-Aug-2016 Status:Aborted Comments:1 TAB PO BID Hydrocodone/Acetaminophen [H ydrocodon-Acetaminophn 10-300] 1;1 ea ORAL As Directed Start:05-Aug-2016 Comments:1 ea PO DIRECTED
--- OUTSIDE RECORDS SUMMARY | 2024-12-22 01:40 | XMS_ITS | Clinical Summary ---
Author Organization [facility] Address [address] [place] [address] Care Team Providers Care Template Worker Name Role Phone Janell Cheung APRN Primary Care Provider [phone] Allergies Active Allergy Reactions Criticality Noted Date [...] to complete this topic Insurance Care Teams Template Worker Relationship Specialty Start Date End Date Janell Cheung APRN [address] [place] [address] PCP - General Family Medicine 03/13/16
--- OUTSIDE RECORDS SUMMARY | 2024-12-22 01:40 | XMS_ITS | Patient Health Record ---
Author Organization [id number] [facility] Address [address] [place], [place] [id number] Support Name Relationship Address Phone guy barrera Emergency Contact Unknown [phone] Fili Barrera Guarantor Unknown [phone] Reason For Referral No Information Medications Medication [...] Coverage End Date JONATHAN NON-HMO [address] [place], [place] [id number] Fili Mejias Self - patient is the insured 7
[2024-12-22 02:00] VITALS: BP 105/59
--- NOTE | 2024-12-22 02:28 | ED_ITS ---
Discharge Plan Disposition Patient Disposition: Home, Self-Care Condition: Good Prescriptions Prescriptions: New azithromycin 250 mg tablet See Rx Instructions .ROUTE .COMPLEX Qty: 6 0RF Rx Instructions: For 250 mg dose pack: take 500 mg today (day 1), then 250 mg for 4 days (days 2-5) No Action Anoro Ellipta 62.5-25 mcg/actuation blister with device 1 inh inhalation DAILY 90 Days Qty: 180 2RF ergocalciferol (vitamin D2) 1,250 mcg (50,000 unit) capsule 1,250 mcg PO WEEKLY Qty: 9 3RF promethazine 25 mg tablet See Rx Instructions .ROUTE .COMPLEX Qty: 30 0RF Dose Instruction: TAKE 1 TABLET BY MOUTH EVERY 8 HOURS NEEDED FOR nausea AND vomiting Rx Instructions: TAKE 1 TABLET BY MOUTH EVERY 8 HOURS NEEDED FOR nausea AND vomiting buprenorphine-naloxone 8 MG-2 tablet, sublingual 2 tab SL DAILY Patient Comments: pt takes one in the morning and then one after lunch. [id number] Rx Instructions: SUBOXONE 8/2 MG, TAKE 2 TABLETS DAILY PER [facility] Combivent Respimat 20-100 mcg/actuation mist 2 puff inhalation BID Rx Instructions: INHALE 2 PUFFS BY MOUTH 2 TIMES A DAY FOR BREATHING PROBLEMS meclizine 25 mg tablet 25 mg PO DAILY PRN (Reason: Dizziness) omeprazole 20 mg capsule,delayed release(DR/EC) 20 mg PO DAILY levothyroxine 25 mcg tablet 25 mcg PO DAILY Rx Instructions: TAKE ONE TABLET BY MOUTH ONCE A DAY venlafaxine 75 mg capsule,extended release 24hr 75 mg PO DAILY Rx Instructions: TAKE ONE CAPSULE BY MOUTH ONCE A DAY WITH 150MG CAPSULE venlafaxine 150 mg capsule,extended release 24hr 150 mg PO DAILY Rx Instructions: TAKE ONE CAPSULE BY MOUTH WITH FOOD ONCE A DAY WITH 75 MG CAPSULE Jardiance 10 mg Tablet 10 mg PO DAILY 30 Days Qty: 30 0RF Kerendia 10 mg tablet 10 mg PO DAILY 30 Days Qty: 30 0RF aspirin 81 MG tablet,delayed release (DR/EC) 81 mg PO DAILY 30 Days Qty: 30 0RF furosemide [Lasix] 40 mg tablet 40 mg PO DAILY 30 Days Qty: 30 0RF cyanocobalamin (vitamin B-12) 1,000 mcg capsule 1,000 mcg PO DAILY Qty: 30 0RF meclizine 25 mg tablet 25 mg PO TID PRN (Reason: dizziness) 20 Days Qty: 60 0RF Referrals Follow up/Referrals: Binu Alanis APRN [Primary Care Provider, Family Practice] - See instructions Activity Restrictions/Add. Instructions Additional Instructions/Restrictions: You were evaluated in the ER and are believed to be appropriate for discharge at this time. Take the prescribed azithromycin antibiotic as directed, do not skip doses, do not stop taking it early. Continue taking your other home medications as previously prescribed. Call Binu's office first thing in the morning and make an appointment for reevaluation. Return to the ER with new, worsening, or otherwise concerning symptoms. Clinical Impressions Clinical Impression: Fever, Pneumonitis Print Language Print Language: Kyrgyz Discharge ED Provider: Karina Aguilar General Adult HPI General Chief complaint: Fever Stated complaint: fever and cough Time Seen by Provider: 12/22/24 01:37 Mode of Arrival: Family Vehicle Source of Information: Patient Description of Symptoms (Recalled from ER Triage Doc. by RN): Fever Pt presents to the ED with c/o fever X 1 day. Pt reports that his temp was 100.8 and home and he took tylenol [employer]. History of Present Illness HPI narrative: 49-year-old male with history of COPD, recent pneumonia, HFpEF presents to the ER with fever reportedly 100.8 at home. He took Tylenol prior to arrival and he was afebrile upon presentation to the ER. He states he has chronic cough which is not specifically worse than it was before. He finished a course of Levaquin for his recent pneumonia. He has no congestion or sore throat, no abdominal pain, no weakness, shortness of breath, fatigue, body aches, or other associated symptoms. No history of IV drug use. No chest pain. He had does have a recent exposure to COVID. He states he wants to know if he has pneumonia again. Related Data Home Medications ?Medication ?Instructions ?Recorded ?Confirmed buprenorphine 8 mg-naloxone 2 mg 2 tab sublingual CHAITANYA Y addiction 06/21/18 12/09/24 sublingual tablet ipratropium 20 mcg-albuterol 100 2 puff inhalation BID 11/17/24 12/09/24 mcg/actuation mist for inhalation (Combivent Respimat) levothyroxine 25 mcg tablet 25 mcg PO DAILY 11/17/24 0 12/09/24 meclizine 25 mg tablet 25 mg PO DAILY PRN Dizziness 11/17/24 12/09/24 omeprazole 20 mg capsule,delayed 20 mg PO DAILY 12/09/24 release venlafaxine 150 mg 150 mg PO DAILY 11/17/2406/03 capsule,extended release 24 hr venlafaxine 75 mg capsule,extended 75 mg PO DAILY 11/0712/09/24 release 24 hr Previous Rx's ?Medication ?Instructions ?Recorded ergocalciferol (vitamin D2) 1,250 1,250 mcg PO WEEKLY #9 caps 10/31/23 mcg (50,000 unit) capsule umeclidinium 62.5 mcg-vilanterol 1 inh inhalation CHAITANYA Y 90 days 02/18/24 25 mcg/actuation powdr for #180 ea inhalation (Anoro Ellipta) aspirin 81 mg tablet,delayed 81 mg PO DAILY 30 days #3 0 tabs 11/18/24 release cyanocobalamin (vitamin B-12) 1,000 mcg PO DAILY #30 c aps 11/18/24 1,000 mcg capsule empagliflozin 10 mg tablet 10 mg PO DAILY 30 days #30 tabs 11/18/24 (Jardiance) finerenone 10 mg tablet (Kerendia) 10 mg PO DAILY 30 d ays #30 tabs 11/18/24 furosemide 40 mg tablet (Lasix) 40 mg PO DAILY 30 days #30 tabs 11/18/24 promethazine 25 mg tablet See Rx Instructions .Route 0 12/12/24 .COMPLEX #30 tabs meclizine 25 mg tablet 25 mg PO TID PRN dizziness 2 0 days 12/15/24 #60 tabs azithromycin 250 mg tablet See Rx Instructions PO .COM PLEX #6 12/22/24 tabs Allergies Allergy/AdvReac Type Severity Reaction Status Date / Time cephalexin (From Keflex) Allergy Verified 12/09/24 14:56 ciprofloxacin (From Cipro) Allergy Verified 12/09/24 14:56 tramadol Allergy Verified 12/09/24 14:56 [facility] Disclaimer: The information contained in this section may have been updated after the patient was seen, as this information can be updated by other users. Medical History Vertigo Acute and chronic respiratory failure with hypoxia Peripheral vascular disease of foot Mixed hyperlipidemia COPD mixed type Hypothyroidism Hyperparathyroidism History of hypokalemia Tobacco abuse disorder Tobacco abuse counseling Hilar lymphadenopathy Mediastinal lymphadenopathy Screening for lung cancer COPD (chronic obstructive pulmonary disease) Smoking greater than 30 pack years Dyspnea on exertion MRSA (methicillin resistant Staphylococcus aureus) Arthritis CHF (congestive heart failure) PVD (peripheral vascular disease) PAD (peripheral artery disease) Myocardial infarction Hyperlipidemia Hypertension CAD (coronary artery disease) Atherosclerosis History of anemia Edema of both lower extremities 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 Insomnia Edema Surgical History Hx of neck surgery lipoma History of back surgery x2-discectomy Upper back Lower back History of esophagogastroduodenoscopy (EGD) History of coronary artery stent placement Hx of cholecystectomy History of cardiac cath History of appendectomy History of colonoscopy Family History Father Cancer Mother Cancer Other Alcoholism Coronary artery disease Diabetes Heart attack Hyperlipidemia Hypertension Kidney disease Social History Smoking Status: Current every day smoker tobacco type: cigarettes packs per day: 1 alcohol intake: former year quit: soci substance use type: former substance user and painkillers current occupational status: disabled Travel in the last 8 weeks?: None adopted: No caregiver/support person: No foster care: No household members: family housing: house lives independently: Yes marital status: education level: high school current occupational exposures/hazards: No caffeine: Yes special bety needs: No agree to transfusion: No do you feel safe at home: Yes victim of physical abuse: No victim of emotional abuse: No victim of sexual abuse: No would you like helpful sources: No Have you lived/traveled outside US in past 30 days?: No Contact w/someone who lives/traveled outside US past 30 days?: No Exposure to someone with infectious disease in past 14 days?: No Do you have a fever (greater than 100.4 F or 38 C)?: No Have you tested positive for COVID-19?: No Exposed to someone with COVID-19 in past 14 days?: No Do you have a sore throat?: No Do you have a cough?: No Do you have any weakness?: No Do you have any diarrhea?: No Are you experiencing any unusual bleeding?: No Do you have any muscle aches/pain?: No Do you have any abdominal pain?: No Are you experiencing loss of taste or smell?: No Other Medical History Have you received the Flu Vaccine for this season: No Have you received the Pneumonia Vaccine: No ROS Obtained: Yes Systems reviewed as appropriate & no additional complaints except as documented Per HPI Physical Exam General General appearance: alert and in no apparent distress Comment: Chronically ill-appearing Head Head exam: atraumatic and normocephalic Eye Eye exam: Present PERRL and EOMI ENT ENT exam: Present mucous membranes moist Neck Neck exam: Present normal inspection and full ROM Chest Chest inspection: Present symmetric chest wall rise Respiratory Respiratory exam: Present wheezes (Mild end expiratory) and other (No rhonchi or rales appreciated); Absent respiratory distress, stridor, accessory muscle use or prolonged expiratory phase Cardiovascular Cardiovascular exam: Present regular rate and normal rhythm Abdominal Exam Abdominal exam: Present soft; Absent distention or tenderness Extremities Exam Extremities exam: Present full ROM and edema (Bilateral lower extremity pitting edema) Neurological Exam Neurological exam: Present alert and oriented X3; Absent motor sensory deficit Psychiatric Psychiatric exam: Present normal affect and normal mood Skin Skin exam: Present warm and dry Medical Decision Making Medical Records Medical records reviewed: Yes I reviewed the patient's medical records. Screening: Per USPSTF and CDC recommendations, given the prevalence of disease in our region, it is our hospital?s policy to screen for HIV and viral Hepatitis for all patients aged 18 and over and those with ongoing risk factors. Juan C Inquiry Pt receiving controlled substance: No Vital Signs: 12/22/24 00:57 12/22/24 01:04 Temperature 98.5 F Temperature Source Oral Oral Pulse Rate [Left] 93 H Respiratory Rate 16 Blood Pressure [Right Arm] 131/73 Blood Pressure Mean [Right Arm] 92 Blood Pressure Source [Right Arm] Automatic Cuff Blood Pressure Position [Right Arm] Sitting 02 Sat by Pulse Oximetry 97 Oxygen Delivery Method Room Air Lab Data Lab Results 12/22/24 00:59: SARS-CoV-2 (PCR) Not detected, Influenza A Untype (PCR) Not detected, Influenza Type B (PCR) Not detected Orders (Tests/Meds): ORDERS Category Date Time Status CXR 2 view (NOT portable) [XR chest 2V] Stat Exams 12/22/24 00:58 Completed Rapid PCR Covid and Flu A/B Stat Lab 12/22/24 00:59 Completed Medical Decision Narrative: In summary, this 49-year-old male with comorbidities described in the HPI presents to the emergency department today with fever, recent COVID exposure, cough. On initial evaluation patient is hemodynamically stable, afebrile, chronically ill-appearing but nontoxic, not in acute distress, saturating well on room air, mild end expiratory wheezing but no accessory muscle use, no other adventitious sounds, abdominal exam benign, oropharynx normal, peripheral edema present but according to patient is at baseline. Patient was ambulatory into the ER, no neurologic deficits.. Differential diagnosis includes but is not limited to viral syndrome, pneumonia, bronchitis, I considered COPD exacerbation but patient has no respiratory distress or difficulty breathing reported and pulmonary exam is only notable for mild end expiratory wheezing, he has no other systemic symptoms that are indicative of other infection at this time, I have highest suspicion for upper respiratory virus.. Based on these concerns, I ordered viral swab, chest x-ray. I had considered hematologic and serum labs but without systemic symptoms at this time with no other acute abnormalities on exam I believe respiratory virus or pneumonia are most likely at this time. Patient reports he only wants to know if he has pneumonia and does not want other workup at this time and would prefer to follow-up outpatient with his PCP anyway if he does not have pneumonia. Labs reviewed by me demonstrate no COVID or flu, though low viral load could produce false negative. Chest x-ray personally interpreted demonstrates improved right lower lobe, see radiology read for final interpretation which comments on findings of pneumonitis versus interstitial edema. Patient has a history of peripheral edema but is not having any new shortness of breath. With his fever I favor this being pneumonitis or early developing pneumonia and with recent pneumonia and COPD will treat with azithromycin. Patient is agreeable to this. Azithromycin sent to his pharmacy of choice. He is going to follow-up with his PCP tomorrow. I encouraged him to do this. He feels well and would like to be discharged. Patient was given instructions on symptomatic management, follow up instructions, and return precautions for the emergency department. Patient indicated understanding and was discharged in stable condition. Critical Care Critical Care Time Critical Care Time: No
[2024-12-22 02:32] VITALS: BP 105/59; PULSE 79; RESP 16; TEMP 36.9; O2SAT 97
== END 2024-12-22 02:33 | disposition home or self-care (01) ==
PROVIDERS: Emergency Provider Emergency Medicine; PCP Nurse Practitioner Family
DX: R50.9 Fever, unspecified (principal); J98.4 Other disorders of lung; F17.210 Nicotine dependence, cigarettes, uncomplicated; J44.9 Chronic obstructive pulmonary disease, unspecified
CPT/HCPCS: 71046; 87636; 99283; 99284

== ENCOUNTER 2024-12-25 11:15 | Outpatient (CLI) | payer MEDICARE, SELFPAY ==
[2024-12-25 15:17] LABS: Hematocrit 24.2 % (42.0-52.0); Hemoglobin 7.6 g/dL (14.1-18.0); Immature Granulocytes % 0.3 %; Mean Corpuscular HGB Conc 31.4 g/dL (31.8-35.4); Mean Corpuscular Hemoglobin 31.9 pg (27.0-31.2); Mean Corpuscular Volume 101.7 fl (80-94); Nucleated Red Blood Cells % 0 %; Platelet Count 153 K/mm3 (142-424); Red Blood Count 2.38 M/mm3 (4.60-6.20); Red Cell Distribution Width-SD 57.8 fL; White Blood Count 3.9 K/mm3 (4.8-10.8)
[2024-12-25 16:01] LABS: Albumin Level 3.5 g/dl (3.5-5.0); Chloride 97 mmol/L (98-107); Potassium 4.3 mmoL/L (3.5-5.1); Sodium 133 mmol/L (136-145)
[2024-12-25 16:03] LABS: Blood Urea Nitrogen 12 mg/dl (9-20); Creatinine,Serum 0.80 mg/dl (0.66-1.25); Estimated Glomerular Filt Rate 104 ml/min (>60); GFR (African American) 125 ML/MIN (>60)
[2024-12-25 16:04] LABS: Alanine Aminotransferase 7 U/L (12-78); Albumin/Globulin Ratio 1.3 (1.1-1.8); Alkaline Phosphatase 105 U/L (38-126); Anion Gap 10.3 mEq/L (5-15); Aspartate Amino Transferase 14 U/L (17-59); Bilirubin,Total 0.8 mg/dl (0.2-1.3); Calcium 8.1 mg/dl (8.4-10.2); Carbon Dioxide 30 mmol/L (22.0-30.0); Globulin 2.6 g/dL (1.3-3.2); Glucose 116 mg/dl (74-100); Total Protein,Serum 6.1 g/dl (6.3-8.2)
--- OUTSIDE RECORDS SUMMARY | 2024-12-26 12:27 | XMS_ITS | Patient Health Record ---
Author Organization [id number] [facility] Address [address] [place], [place] [id number] Support Name Relationship Address Phone guy barrera Emergency Contact Unknown [phone] Fili Barrera Guarantor Unknown [phone] Reason For Referral No Information Medications Medication [...] Coverage End Date JONATHAN NON-HMO [address] [place], [place] [id number] Fili Mejias Self - patient is the insured 7
--- OUTSIDE RECORDS SUMMARY | 2024-12-26 12:27 | XMS_ITS | Clinical Summary ---
Author Organization [facility] Address [address] [place] [address] Care Team Providers Care Toe Former Name Role Phone Janell Cheung APRN Primary Care Provider [phone] Allergies Active Allergy Reactions Criticality Noted Date [...] TEST 2022 FIT Testing (1 year) 2022 INFLUENZA VACCINE 11/07/2024 Pneumococcal Vaccine 0-49 Aged Out No longer eligible based on patient's age to complete this topic Insurance Care Teams Toe Former Relationship Specialty Start Date End Date Janell Cheung APRN [address] [place] [address] PCP - General Family Medicine 03/13/16
== END 2024-12-25 23:59 ==
LOC: LAB.DROPOF 12-26 12:25
PROVIDERS: PCP Family Medicine; Visit Provider Family Medicine
DX: R53.83 Other fatigue (principal)
CPT/HCPCS: 80053; 85025

== ENCOUNTER 2024-12-29 12:51 | Inpatient (IN) | payer MEDICARE, SELFPAY ==
[2024-12-29] VITALS (7 sets, daily range): BP systolic 125–153; BP diastolic 54–76; PULSE 71–100; RESP 15–20; TEMP 36.5–36.8; O2SAT 79–99; BMI 31.1; BMI 30.9
--- OUTSIDE RECORDS SUMMARY | 2024-12-29 13:03 | XMS_ITS | Clinical Summary ---
Author Organization [facility] Address [address] [place] [address] Care Team Providers Care Charge Entry Clerk Name Role Phone Janell Cheung APRN Primary Care Provider [phone] Allergies Active Allergy Reactions Criticality Noted Date [...] to complete this topic Insurance Care Teams Charge Entry Clerk Relationship Specialty Start Date End Date Janell Cheung APRN [address] [place] [address] PCP - General Family Medicine 03/13/16
--- OUTSIDE RECORDS SUMMARY | 2024-12-29 13:03 | XMS_ITS | Patient Health Record ---
Author Organization [id number] [facility] Address [address] [place], [place] [id number] Support Name Relationship Address Phone guy barrera Emergency Contact Unknown [phone] Fili Barrera Guarantor Unknown [phone] Reason For Referral No Information Medications Medication [...] Coverage End Date JONATHAN NON-HMO [address] [place], [place] [id number] [phone] [id number] Fili Mejias Self - patient is the insured 7
--- NOTE | 2024-12-29 13:08 | CT_ITS ---
FINAL REPORT TECHNIQUE: Axial imaging of the chest is obtained after the administration of contrast. 3-D MIP reformatted images were also obtained and reviewed per PE protocol. CLINICAL HISTORY: SOB COMPARISON: 11/16/2024 FINDINGS: Motion artifact limits evaluation of the peripheral pulmonary arteries. No central or proximal segmental pulmonary embolism identified. There is no aortic dissection. Heart size is normal. No axillary lymphadenopathy. Mildly enlarged mediastinal lymph nodes are stable. Subcarinal lymphadenopathy is stable.. There are bilateral pleural effusions, right is stable and the left is slightly larger.. There has been interval worsening of ground glass and airspace disease in the right lower lobe. New ground glass and airspace opacities are seen in the right middle lung, lingula, and left lower lobe and favored to represent pneumonia. Superimposed pulmonary edema is not excluded.. Limited evaluation of the upper abdomen shows stable left adrenal nodule.. No acute osseous abnormality. There are several chronic appearing lower thoracic/upper lumbar compression deformities. IMPRESSION: No evidence of central pulmonary embolism or aortic dissection. Worsening bilateral ground glass and airspace opacities favored to represent pneumonia. Superimposed edema not excluded. Reviewed, Interpreted and Dictated by Maggy Mayers MD Transcribed by Megha Cheung Authenticated and [facility]
--- NOTE | 2024-12-29 13:08 | XR_ITS ---
FINAL REPORT CLINICAL HISTORY: SOB COMPARISON: 11/16/2024 FINDINGS: A portable view of the chest was obtained. Cardiac and mediastinal silhouettes are within normal limits. New left and worsening right basilar opacities.. Bilateral pleural effusions are noted, left effusion is new. There is no pneumothorax.. IMPRESSION: Bibasilar opacities, new on the left and worsening on the right, and bilateral pleural effusions. Recommend follow-up to resolution. Reviewed, Interpreted and Dictated by Maggy Mayers MD Transcribed by Megha Cheung Authenticated and [facility]
--- NOTE | 2024-12-29 13:10 | ECG_ITS ---
APPROVED REPORT Exam: Resting ECG HR:87 bpm ECG Measurements Heart Rate 87 AXES PA 96 P 75 QRSd 121 QRS 93 QT 413 T 46 QTc 458 Conclusion SINUS RHYTHM WITH SHORT PA INTERVAL POSSIBLE LEFT ATRIAL ENLARGEMENT [-0.1mV P-WAVE IN V1/V2] BORDERLINE RIGHT AXIS DEVIATION [QRS AXIS > 90] MODERATE INTRAVENTRICULAR CONDUCTION DELAY [110+ ms QRS DURATION] NONSPECIFIC ST & T-WAVE ABNORMALITY BORDERLINE ECG Electronically signed by : JUDE BREWSTER, 01/01/2025 09:28:55
--- NOTE | 2024-12-29 13:11 | ED_ITS ---
Discharge Plan Disposition Patient Disposition: Admitted Clinical Impressions Clinical Impression: Pneumonia Discharge ED Provider: Ryland Bejarano General Adult HPI General Chief complaint: Shortness of Breath/Dyspnea Stated complaint: SOA- O2 high 80's Time Seen by Provider: 12/29/24 13:03 History of Present Illness HPI narrative: This patient is a 49-year-old male with past medical history of congestive heart failure, venous stasis, venous insufficiency who presents to the emergency department with pleuritic chest pain, shortness of breath. The patient reports that symptoms have been worsening over the last 48 hours, he feels that the pain in his ribs makes it very difficult to take a deep breath. The pain is located on the lower left rib, does not radiate. He has no abdominal pain, no lower extremity pain, no increased lower extremity swelling from baseline. Related Data Home Medications ?Medication ?Instructions ?Recorded ?Confirmed buprenorphine 8 mg-naloxone 2 mg 2 tab sublingual CHAITANYA Y addiction 06/21/18 12/29/24 sublingual tablet ipratropium 20 mcg-albuterol 100 2 puff inhalation BID 11/17/24 12/29/24 mcg/actuation mist for inhalation (Combivent Respimat) levothyroxine 25 mcg tablet 25 mcg PO DAILY 11/17/24 0 12/29/24 omeprazole 20 mg capsule,delayed 20 mg PO DAILY 12/29/24 release venlafaxine 150 mg 150 mg PO DAILY 11/17/24 capsule,extended release 24 hr venlafaxine 75 mg capsule,extended 75 mg PO DAILY 11/0712/29/24 release 24 hr Previous Rx's ?Medication ?Instructions ?Recorded ergocalciferol (vitamin D2) 1,250 1,250 mcg PO WEEKLY #9 caps 10/31/23 mcg (50,000 unit) capsule umeclidinium 62.5 mcg-vilanterol 1 inh inhalation CHAITANYA Y 90 days 02/18/24 25 mcg/actuation powdr for #180 ea inhalation (Anoro Ellipta) aspirin 81 mg tablet,delayed 81 mg PO DAILY 30 days #3 0 tabs 11/18/24 release empagliflozin 10 mg tablet 10 mg PO DAILY 30 days #30 tabs 11/18/24 (Jardiance) finerenone 10 mg tablet (Kerendia) 10 mg PO DAILY 30 d ays #30 tabs 11/18/24 furosemide 40 mg tablet (Lasix) 40 mg PO DAILY 30 days #30 tabs 11/18/24 promethazine 25 mg tablet See Rx Instructions .Route 0 12/12/24 .COMPLEX #30 tabs meclizine 25 mg tablet 25 mg PO TID PRN dizziness 2 0 days 12/15/24 #60 tabs Allergies Allergy/AdvReac Type Severity Reaction Status Date / Time cephalexin (From Keflex) Allergy Verified 12/25/24 10:58 ciprofloxacin (From Cipro) Allergy Verified 12/25/24 10:58 tramadol Allergy Verified 12/25/24 10:58 PFSH [facility] Disclaimer: The information contained in this section may have been updated after the patient was seen, as this information can be updated by other users. Medical History Vertigo Acute and chronic respiratory failure with hypoxia Peripheral vascular disease of foot Mixed hyperlipidemia COPD mixed type Hypothyroidism Hyperparathyroidism History of hypokalemia Tobacco abuse disorder Tobacco abuse counseling Hilar lymphadenopathy Mediastinal lymphadenopathy Screening for lung cancer COPD (chronic obstructive pulmonary disease) Smoking greater than 30 pack years Dyspnea on exertion MRSA (methicillin resistant Staphylococcus aureus) Arthritis CHF (congestive heart failure) PVD (peripheral vascular disease) PAD (peripheral artery disease) Myocardial infarction Hyperlipidemia Hypertension CAD (coronary artery disease) Atherosclerosis History of anemia Edema of both lower extremities 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 Insomnia Edema Surgical History Hx of neck surgery lipoma History of back surgery x2-discectomy Upper back Lower back History of esophagogastroduodenoscopy (EGD) History of coronary artery stent placement Hx of cholecystectomy History of cardiac cath History of appendectomy History of colonoscopy Family History Father Cancer Mother Cancer Other Alcoholism Coronary artery disease Diabetes Heart attack Hyperlipidemia Hypertension Kidney disease Social History Smoking Status: Current every day smoker tobacco type: cigarettes packs per day: 1 alcohol intake: former year quit: soci substance use type: former substance user and painkillers current occupational status: disabled Travel in the last 8 weeks?: None adopted: No caregiver/support person: No foster care: No household members: family housing: house lives independently: Yes marital status: education level: high school current occupational exposures/hazards: No caffeine: Yes special bety needs: No agree to transfusion: No do you feel safe at home: Yes victim of physical abuse: No victim of emotional abuse: No victim of sexual abuse: No would you like helpful sources: No Have you lived/traveled outside [place] in past 30 days?: No Contact w/someone who lives/traveled outside [place] past 30 days?: No Exposure to someone with infectious disease in past 14 days?: No Do you have a fever (greater than 100.4 F or 38 C)?: No Have you tested positive for COVID-19?: No Exposed to someone with COVID-19 in past 14 days?: No Do you have a sore throat?: No Do you have a cough?: No Do you have any weakness?: No Do you have any diarrhea?: No Are you experiencing any unusual bleeding?: No Do you have any muscle aches/pain?: No Do you have any abdominal pain?: No Are you experiencing loss of taste or smell?: No Other Medical History Have you received the Flu Vaccine for this season: No Have you received the Pneumonia Vaccine: No ROS Obtained: Yes All systems reviewed & no additional complaints except as documented Physical Exam General General appearance: alert and in no apparent distress Head Head exam: atraumatic and normocephalic Eye Eye exam: Present normal appearance, PERRL and EOMI ENT ENT exam: Present normal exam and normal external ear exam Neck Neck exam: Present normal inspection, full ROM and trachea midline Chest Chest inspection: Present normal inspection and symmetric chest wall rise; Absent tenderness Respiratory Respiratory exam: Absent respiratory distress Cardiovascular Cardiovascular exam: Present regular rate, normal rhythm and other (appears warm and well perfused) Abdominal Exam Abdominal exam: Absent distention or tenderness exam: Absent deferred Extremities Exam Extremities exam: Present normal inspection (Signs of significant chronic venous stasis) and full ROM Neurological Exam Neurological exam: Present alert and oriented X3 Psychiatric Psychiatric exam: Present normal affect Skin Skin exam: Present warm and dry Medical Decision Making Medical Records Medical records reviewed: Yes I reviewed the patient's medical records. Screening: Per USPSTF and CDC recommendations, given the prevalence of disease in our region, it is our hospital?s policy to screen for HIV and viral Hepatitis for all patients aged 18 and over and those with ongoing risk factors. Juan C Inquiry Pt receiving controlled substance: No Juan C was queried for this patient: No Vital Signs: 12/29/24 13:00 12/29/24 13:12 12/29/24 14:00 Temperature 98 F Temperature Source Oral Pulse Rate 100 H 77 Pulse Rate [Left] 77 Respiratory Rate 20 16 Blood Pressure 153/76 H 128/64 Blood Pressure [Right Arm] 153/76 H Blood Pressure Mean [Right Arm] 101 Blood Pressure Source Blood Pressure Source [Right Arm] Automatic Cuff Blood Pressure Position Blood Pressure Position [Right Arm] Sitting 02 Sat by Pulse Oximetry 81 L 79 L 99 Oxygen Delivery Method Room Air Room Air Nasal Cannula Oxygen Flow Rate (LPM) 5 12/29/24 16:04 Temperature 98 F Temperature Source Oral Pulse Rate 75 Pulse Rate [Left] Respiratory Rate 15 Blood Pressure 125/60 Blood Pressure [Right Arm] Blood Pressure Mean [Right Arm] Blood Pressure Source Automatic Cuff Blood Pressure Source [Right Arm] Blood Pressure Position Supine Blood Pressure Position [Right Arm] 02 Sat by Pulse Oximetry Oxygen Delivery Method Nasal Cannula Oxygen Flow Rate (LPM) 5 Lab Data Lab results reviewed: Yes I reviewed the patient's lab results. Lab Results 12/29/24 13:14: WBC 5.5, RBC 2.66 L, Hgb 8.8 L, Hct 26.8 L, MCV 100.8 H, MCH 33.1 H, MCHC 32.8, RDW 15.6, Plt Count 144, MPV 8.1, Neut % (Auto) 78.6, Lymph % (Auto) 13.5, [place] % (Auto) 5.3, Eos % (Auto) 0.2, Baso % (Auto) 0.4, Neut # (Auto) 4.3, Lymph # (Auto) 0.7, [place] # (Auto) 0.3, Eos # (Auto) 0.0, Baso # (Auto) 0.0, Sodium 133 L, Potassium 3.7, Chloride 94 L, Carbon Dioxide 28, Anion Gap 14.7, BUN 13, Creatinine 1.00, Estimated Creat Clear 127, Estimated GFR 80, Est GFR ( Amer) 97, Glucose 140 H, Calcium 8.6, Total Bilirubin 0.9, AST 22, ALT 12, Alkaline Phosphatase 114, Troponin I 0.02, NT-Pro-B Natriuret Pep 5190 H, Total Protein 7.3, Albumin 4.2, Globulin 3.1, Albumin/Globulin Ratio 1.4 12/29/24 13:17: VBG pH 7.33, VBG pCO2 51.7 H, VBG pO2 42.6 H, VBG HCO3 26.6, VBG Total CO2 28.2 H, VBG O2 Saturation 73.7 H, VBG Base Excess 0.7, VBG Lactic Acid 2.7 H 12/29/24 13:21: SARS-CoV-2 (PCR) Not detected, Influenza A Untype (PCR) Not detected, Influenza Type B (PCR) Not detected 12/29/24 13:14 12/29/24 13:14 Orders (Tests/Meds): ED MEDICATIONS Generic Name Dose Route Start Last Admin Trade Name Freq PRN Reason Stop Dose Admin Albuterol/Ipratropium 3 ml 12/29/24 18:00 Ipratropium/Albuterol 3 Ml [facility] 01/28/25 17:59 Q6RT [facility] Aspirin 81 mg 12/30/24 09:00 Aspirin Ec 81mg Tablet PO 01/29/25 08:59 DAILY [facility] Budesonide 0.5 mg 12/29/24 18:00 Budesonide 0.5mg/2ml Neb 01/28/25 17:59 BIDRT [facility] Buprenorphine/Naloxone 2 each 12/30/24 09:00 Buprenorphine/Naloxone 8mg/2mg Odt SL 01/29/25 08:59 DAILY [facility] Empagliflozin 10 mg 12/30/24 09:00 Empagliflozin 10mg Tablet PO 01/29/25 08:59 DAILY [facility] Levofloxacin/Dextrose 750 mg in 150 mls @ 100 mls/hr 12/29/24 16:00 12/29/24 16:30 Levofloxacin 750mg/150ml Premix IV 01/08/25 15:59 100 mls/hr Q24H WON Administration Levothyroxine Sodium 25 mcg 12/30/24 09:00 Levothyroxine 25mcg (0.025mg) Tab PO 01/29/25 08:59 DAILY WON Nicotine 21 mg 12/29/24 15:56 Nicotine 21mg/24hr Patch TD 01/28/25 15:55 DAILYP PRN Nicotine Cravings Non-Formulary Medication 10 mg 12/30/24 09:00 Finerenone [Kerendia] PO 01/29/25 08:59 DAILY WON Non-Formulary Medication 150 mg 12/30/24 09:00 Venlafaxine PO 01/29/25 08:59 DAILY WON Pantoprazole Sodium 40 mg 12/29/24 21:00 Pantoprazole 40mg Tablet PO 01/28/25 20:59 HS WON Sodium Chloride 3 ml 12/29/24 16:51 Sodium Chloride 3% 15ml Neb IH 01/28/25 16:50 ONCE PRN [employer] Venlafaxine HCl 75 mg 12/30/24 09:00 Venlafaxine Xr 75mg Capsule PO 01/29/25 08:59 DAILY WON Discontinued Medications Generic Name Dose Route Start Last Admin Trade Name Freq PRN Reason Stop Dose Admin Calcium Carbonate 1,000 mg 12/29/24 15:24 12/29/24 15:34 Calcium Carbonate 500mg Chewtab PO 12/29/24 15:25 1,000 mg ONCE ONE Administration Furosemide 40 mg 12/29/24 15:24 12/29/24 15:34 Furosemide 40mg/4ml Vial IV 12/29/24 15:25 40 mg ONCE ONE Administration Furosemide 40 mg 12/29/24 15:42 12/29/24 16:30 Furosemide 40mg/4ml Vial IV 12/29/24 15:43 40 mg ONCE ONE Administration Iopamidol 70 ml 12/29/24 13:31 12/29/24 13:32 Iopamidol-370 (76%);100ml Bottle IV 12/29/24 13:32 70 ml ONCE ONE Administration Sodium Chloride 50 ml 12/29/24 13:31 12/29/24 13:32 0.9 % Sodium Chloride 50 Ml Vial IV 12/29/24 13:32 50 ml ONCE ONE Administration Sodium Chloride 10 ml 12/29/24 13:31 12/29/24 13:32 Sodium Chloride 0.9% 10ml Syr (Rad Only) IV 12/29/24 13:32 10 ml ONCE ONE Administration ORDERS Category Date Time Status CTA Chest [CT angio chest PE protocol] Stat Cat Scan 12/29/24 13:08 Completed CXR --portable [XR chest portable] Stat Exams 12/29/24 13:08 Completed BNP [NT Pro Brain Natriuretic Pep.] Stat Lab 12/29/24 13:14 Completed CBC w/Auto Diff [Complete Blood Count Auto Diff] Stat Lab 12/29/24 13:14 Completed CMP [Comprehensive Metabolic Panel] Stat Lab 12/29/24 13:14 Completed Rapid PCR Covid and Flu A/B Stat Lab 12/29/24 13:21 Completed Troponin I Q3H Lab 12/29/24 13:14 Completed Troponin I Q3H Lab 12/29/24 16:15 Ordered VBG [Venous Blood Gas] Stat RT 12/29/24 13:17 Completed Medical Decision Narrative: MDM In summary, this 49-year-old male presents to the emergency department today with shortness of breath. Initial evaluation the patient mildly tachypneic, satting poorly on room air. Differential diagnosis includes but is not limited to ACS, ID, pulmonary embolism, pneumothorax, rib fracture, pneumonia. Based on these concerns, I ordered a comprehensive laboratory and imaging workup. ECG personally interpreted by me demonstrates no significant findings from previous EKG. Patient received albuterol, Tums for treatment. Labs personally reviewed and interpreted demonstrate VBG shows no acidosis with elevated CO2 indicating chronic COPD, patient has no significant leukocytosis, mild anemia, no obvious changes to metabolic panel from previous labs. CT imaging personally interpreted by me demonstrate no obvious pulmonary embolism, bilateral hazy opacities concerning for infection. Given the patient's increased work of breathing, pleuritic chest pain, and imaging findings I think it is most likely he is suffering from a diffuse atypical pneumonia. I had an interactive discussion with the internal medicine service and they were agreeable to accepting care and management of the patient. Critical Care Critical Care Time Critical Care Time: No
[2024-12-29 13:18] LABS: Hematocrit 26.8 % (42.0-52.0); Hemoglobin 8.8 g/dL (14.1-18.0); Immature Granulocytes % 2.0 %; Mean Corpuscular HGB Conc 32.8 g/dL (31.8-35.4); Mean Corpuscular Hemoglobin 33.1 pg (27.0-31.2); Mean Corpuscular Volume 100.8 fl (80-94); Nucleated Red Blood Cells % 1.1 %; Platelet Count 144 K/mm3 (142-424); Red Blood Count 2.66 M/mm3 (4.60-6.20); Red Cell Distribution Width-SD 56.8 fL; White Blood Count 5.5 K/mm3 (4.8-10.8)
[2024-12-29 13:19] LABS: VBG HCO3 26.6 mmol/L (23-30); VBG PCO2 51.7 mmol/L (35-51); VBG PH 7.33 mmol/L (7.31-7.41); VBG PO2 42.6 mmol/L (28-40)
[2024-12-29 13:20] LABS: Lactate Venous 2.7 mmol/L (0.4-2.0)
--- NOTE | 2024-12-29 13:26 | PC.NURSE ---
PT TO RADIOLOGY
[2024-12-29 13:28] LABS: Coronavirus 19, PCR Not Detected (NotDetected); Influenza A, PCR Not Detected (NotDetected); Influenza B, PCR Not Detected (NotDetected)
[2024-12-29] MEDS: 0.9 % SODIUM CHLORIDE 50 ML VIAL IV (13:32)
[2024-12-29] MEDS: SODIUM CHLORIDE 0.9% 10ML SYR (RAD ONLY) 10 ML IV (13:32)
[2024-12-29] MEDS: IOPAMIDOL-370 (76%);100ML BOTTLE 70 ML IV (13:32)
[2024-12-29 13:36] LABS: Albumin Level 4.2 g/dl (3.5-5.0); Chloride 94 mmol/L (98-107)
[2024-12-29 13:37] LABS: Potassium 3.7 mmoL/L (3.5-5.1); Sodium 133 mmol/L (136-145)
[2024-12-29 13:39] LABS: Alanine Aminotransferase 12 U/L (12-78); Albumin/Globulin Ratio 1.4 (1.1-1.8); Alkaline Phosphatase 114 U/L (38-126); Anion Gap 14.7 mEq/L (5-15); Aspartate Amino Transferase 22 U/L (17-59); Bilirubin,Total 0.9 mg/dl (0.2-1.3); Blood Urea Nitrogen 13 mg/dl (9-20); Carbon Dioxide 28 mmol/L (22.0-30.0); Creatinine Clearance Estimated 127 mL/min (50-200); Creatinine,Serum 1.00 mg/dl (0.66-1.25); Estimated Glomerular Filt Rate 80 ml/min (>60); GFR (African American) 97 ML/MIN (>60); Globulin 3.1 g/dL (1.3-3.2); Total Protein,Serum 7.3 g/dl (6.3-8.2)
[2024-12-29 13:40] LABS: Calcium 8.6 mg/dl (8.4-10.2); Glucose 140 mg/dl (74-100)
[2024-12-29 13:48] LABS: NT Pro Brain Natriuretic Pep. 5190 pg/mL (0-125)
[2024-12-29 13:50] LABS: Troponin I 0.02 ng/ml (0.00-0.034)
--- NOTE | 2024-12-29 15:07 | PC.NURSE ---
O2 SENSOR REPLACED, PT 99ON 5L/NC, DECREASED TO 2L/NC AT THIS TIME. PT PROVIDED ICE CHIPS. CALL LIGHT WITHIN REACH
--- NOTE | 2024-12-29 15:28 | PC.NURSE ---
WIND UP OPERATOR NOTIFIED OF ADMISSION
[2024-12-29] MEDS: CALCIUM CARBONATE 500MG CHEWTAB 1000 MG PO (15:34)
[2024-12-29] MEDS: FUROSEMIDE 40MG/4ML VIAL 40 MG IV ×2 (15:34→16:30)
--- NOTE | 2024-12-29 15:38 | PC.NURSE ---
O2 INCREASED TO 4L/NC. PT SAT REMAINED 88%
--- NOTE | 2024-12-29 15:45 | P.HP_ITS ---
History of Present Illness *Admission Date: 12/29/24 *Reason for visit:: dyspnea *History of present illness: Mr. Barrera is a 49-year-old male who appears significantly older than stated age. History of HFpEF, venous stasis, insufficiency in lower legs, poorly healing foot wounds, COPD. Presented with shortness of breath and persistent cough that is nonproductive over the past week. Reports taking 2 rounds of antibiotics 3 and 2 weeks ago respectively. Last dose of antibiotics a week ago on Sunday. Was checking his oxygen at home today and found that he was hypoxic. Presented to the ER and was found to have O2 sats in the 70s to 80s. Initially placed on 6 L oxygen. Workup showed normal white count. Chest imaging showing edema versus atypical pneumonia with pleural effusion on right side. BNP elevated at 5000. Medicine consulted for admission and treatment of CHF versus atypical pneumonia. States he has had intermittent subjective fevers. No nausea or vomiting. No increased welling in his legs. Does have pain with deep inspiration predominantly on the left side. On arrival to the floor, patient was weaned to 2 L nasal cannula due to sats in the mid 80s on room air. Satting low 90s on 2 L. Alert and oriented x 4. Appears in mild distress. Chronically ill. [facility] Disclaimer: The information contained in this section may have been updated after the patient was seen, as this information can be updated by other users. Medical History Vertigo Acute and chronic respiratory failure with hypoxia Peripheral vascular disease of foot Mixed hyperlipidemia COPD mixed type Hypothyroidism Hyperparathyroidism History of hypokalemia Tobacco abuse disorder Tobacco abuse counseling Hilar lymphadenopathy Mediastinal lymphadenopathy Screening for lung cancer COPD (chronic obstructive pulmonary disease) Smoking greater than 30 pack years Dyspnea on exertion MRSA (methicillin resistant Staphylococcus aureus) Arthritis CHF (congestive heart failure) PVD (peripheral vascular disease) PAD (peripheral artery disease) Myocardial infarction Hyperlipidemia Hypertension CAD (coronary artery disease) Atherosclerosis History of anemia Edema of both lower extremities 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 Insomnia Edema Surgical History Hx of neck surgery History of back surgery History of esophagogastroduodenoscopy (EGD) History of coronary artery stent placement Hx of cholecystectomy History of cardiac cath History of appendectomy History of colonoscopy Family History Father Cancer Mother Cancer Other Alcoholism Coronary artery disease Diabetes Heart attack Hyperlipidemia Hypertension Kidney disease Social History Smoking Status: Current every day smoker tobacco type: cigarettes packs per day: 1 alcohol intake: former year quit: soci substance use type: former substance user and painkillers current occupational status: disabled Travel in the last 8 weeks?: None adopted: No caregiver/support person: No foster care: No household members: family housing: house lives independently: Yes marital status: education level: high school current occupational exposures/hazards: No caffeine: Yes special bety needs: No agree to transfusion: No do you feel safe at home: Yes victim of physical abuse: No victim of emotional abuse: No victim of sexual abuse: No would you like helpful sources: No Have you lived/traveled outside [place] in past 30 days?: No Contact w/someone who lives/traveled outside [place] past 30 days?: No Exposure to someone with infectious disease in past 14 days?: No Do you have a fever (greater than 100.4 F or 38 C)?: No Have you tested positive for COVID-19?: No Exposed to someone with COVID-19 in past 14 days?: No Do you have a sore throat?: No Do you have a cough?: No Do you have any weakness?: No Do you have any diarrhea?: No Are you experiencing any unusual bleeding?: No Do you have any muscle aches/pain?: No Do you have any abdominal pain?: No Are you experiencing loss of taste or smell?: No Other Medical History Have you received the Flu Vaccine for this season: No Have you received the Pneumonia Vaccine: No Review of Systems Review of Systems Review of systems (narrative): 14 point review of systems performed, pertinent positives and negatives as per HPI Meds Home Medications and Allergies Home Medications ?Medication ?Instructions ?Recorded ?Confirmed ?Type buprenorphine 8 mg-naloxone 2 mg 2 tab sublingual CHAITANYA Y addiction 06/21/18 12/29/24 History sublingual tablet ergocalciferol (vitamin D2) 1,250 1,250 mcg PO WEEKLY #9 caps 10/31/23 12/29/24 Rx mcg (50,000 unit) capsule umeclidinium 62.5 mcg-vilanterol 1 inh inhalation CHAITANYA Y 90 days 02/18/24 12/29/24 Rx 25 mcg/actuation powdr for #180 ea inhalation (Anoro Ellipta) ipratropium 20 mcg-albuterol 100 2 puff inhalation BID 11/17/24 12/29/24 History mcg/actuation mist for inhalation (Combivent Respimat) levothyroxine 25 mcg tablet 25 mcg PO DAILY 11/17/24 0 12/29/24 History omeprazole 20 mg capsule,delayed 20 mg PO DAILY 12/29/24 History release venlafaxine 150 mg 150 mg PO DAILY 11/17/24 History capsule,extended release 24 hr venlafaxine 75 mg capsule,extended 75 mg PO DAILY 11/0712/29/24 History release 24 hr aspirin 81 mg tablet,delayed 81 mg PO DAILY 30 days #3 0 tabs 11/18/24 12/29/24 Rx release empagliflozin 10 mg tablet 10 mg PO DAILY 30 days #30 tabs 11/18/24 12/29/24 Rx (Jardiance) finerenone 10 mg tablet (Kerendia) 10 mg PO DAILY 30 d ays #30 tabs 11/18/24 12/29/24 Rx furosemide 40 mg tablet (Lasix) 40 mg PO DAILY 30 days #30 tabs 11/18/24 12/29/24 Rx promethazine 25 mg tablet See Rx Instructions .Route 0 12/12/24 12/29/24 Rx .COMPLEX #30 tabs meclizine 25 mg tablet 25 mg PO TID PRN dizziness 2 0 days 12/15/24 12/29/24 Rx #60 tabs New Prescriptions to Start Prescriptions: Allergies Allergy/AdvReac Type Severity Reaction Status Date / Time cephalexin (From Keflex) Allergy Verified 12/25/24 10:58 ciprofloxacin (From Cipro) Allergy Verified 12/25/24 10:58 tramadol Allergy Verified 12/25/24 10:58 Exam Data for Last 24 hours Vital signs and Labs for Last 24 Hours: Temp Pulse Resp BP Pulse Ox O2 Del Method O2 Flow Rate 98 F 77 16 128/64 99 Nasal Cannula 5 12/29/24 13:12 12/29/24 14:00 12/29/24 13:12 12/29/24 14:00 12/29/24 14:00 12/29/24 14:00 12/29/24 14:00 Laboratory Results - last 24 hr 12/29/24 13:14: WBC 5.5, RBC 2.66 L, Hgb 8.8 L, Hct 26.8 L, MCV 100.8 H, MCH 33.1 H, MCHC 32.8, RDW 15.6, Plt Count 144, MPV 8.1, Neut % (Auto) 78.6, Lymph % (Auto) 13.5, [place] % (Auto) 5.3, Eos % (Auto) 0.2, Baso % (Auto) 0.4, Neut # (Auto) 4.3, Lymph # (Auto) 0.7, [place] # (Auto) 0.3, Eos # (Auto) 0.0, Baso # (Auto) 0.0, Sodium 133 L, Potassium 3.7, Chloride 94 L, Carbon Dioxide 28, Anion Gap 14.7, BUN 13, Creatinine 1.00, Estimated Creat Clear 127, Estimated GFR 80, Est GFR ( Amer) 97, Glucose 140 H, Calcium 8.6, Total Bilirubin 0.9, AST 22, ALT 12, Alkaline Phosphatase 114, Troponin I 0.02, NT-Pro-B Natriuret Pep 5190 H, Total Protein 7.3, Albumin 4.2, Globulin 3.1, Albumin/Globulin Ratio 1.4 12/29/24 13:17: VBG pH 7.33, VBG pCO2 51.7 H, VBG pO2 42.6 H, VBG HCO3 26.6, VBG Total CO2 28.2 H, VBG O2 Saturation 73.7 H, VBG Base Excess 0.7, VBG Lactic Acid 2.7 H 12/29/24 13:21: SARS-CoV-2 (PCR) Not detected, Influenza A Untype (PCR) Not detected, Influenza Type B (PCR) Not detected I & O for Last 24 hours: Intake & Output 12/26/24 12/27/24 12/28/24 12/29/24 23:59 23:59 23:59 23:59 Weight 98.43 kg Constitutional Constitutional: mild distress, obese, chronically ill appearing and cooperative *Routine HEENT Exam Head: Present normocephalic and atraumatic Eye: Present EOMI and PERRL ENT: Present mucous membranes moist *Routine Neck Exam Neck: Present supple and full ROM *Routine Respiratory Exam Respiratory: Present decreased breath sounds, crackles (Bilateral bases posterior lung field), normal respiratory effort, able to speak in complete sentences and symmetric chest movement; Absent rhonchi or wheezes *Routine Cardiovascular Exam Cardiovascular: Present RRR, Normal S1 and Normal S2 *Routine Abdominal Exam Abdominal: Present soft and normoactive bowel sounds; Absent tenderness *Routine Rectal Exam Rectal:: deferred *Routine Genitalia Exam Genitalia:: deferred *Routine Extremities Exam Extremities: Present edema (Trace in lower extremities most visible in thighs) and normal capillary refill (In fingers); Absent cyanosis or clubbing Comments: Both lower extremities just below the knee extremely hard darkened skin still has sensation to it to the ankles and feet. Long overgrown nails, hyperkeratosis of skin on lower legs and feet. Quarter sized wound dorsum of left foot that is scabbed with no active drainage. Centimeter diameter scabbed wound right medial ankle with no active bleeding. Wounds are through the epidermis. Consistent with vascular ulcers. *Routine Skin Exam Skin: Present dry, warm and wounds (Feet as above and extremity exam) Comments: Hyperkeratotic skin below the knee bilaterally *Routine Neurological Exam Neurological: Present alert, oriented X3, CN II-XII intact, moving all extremities, vision grossly intact, hearing grossly intact and normal speech Assessment and Plan *Assessment and plan (1) Acute on chronic heart failure with preserved ejection fraction (HFpEF): Status: Acute Category: Medical Code(s): I50.33 - Acute on chronic diastolic (congestive) heart failure (2) Pneumonia: Status: Acute Qualifiers: Laterality: bilateral Lung location: lower lobe of lung Pneumonia type: due to unspecified organism Qualified Code(s): J18.9 - Pneumonia, unspecified organism Category: Medical Code(s): J18.9 - Pneumonia, unspecified organism (3) Venous stasis dermatitis: Status: Acute Category: Medical Code(s): I87.2 - Venous insufficiency (chronic) (peripheral) (4) COPD mixed type: Status: Acute Category: Medical Code(s): J44.9 - Chronic obstructive pulmonary disease, unspecified (5) Hypothyroidism: Status: Acute Qualifiers: Hypothyroidism type: unspecified Qualified Code(s): E03.9 - Hypothyroidism, unspecified Category: Medical Code(s): E03.9 - Hypothyroidism, unspecified (6) Tobacco abuse: Status: Chronic Category: Medical Code(s): Z72.0 - Tobacco use (7) CAD (coronary artery disease): Status: Chronic Qualifiers: Associated angina: without angina Coronary Disease-Associated Artery/Lesion type: [place] artery [place] vs. transplanted heart: [place] heart Qualified Code(s): I25.10 - Atherosclerotic heart disease of [place] coronary artery without angina pectoris Category: Medical Code(s): I25.10 - Atherosclerotic heart disease of [place] coronary artery without angina pectoris Plan Fili Barrera is a 49-year-old male with history of COPD, HFpEF, who presented with worsening shortness of breath. Completed 2 rounds of antibiotics and has continued to have symptoms. Subjective fevers at home. Found to be hypoxic on his home O2 meter today. Presented to the ER and continued to be hypoxic. Chest imaging concerning for CHF versus pneumonia. BNP elevated at 5000. Discussed case with ER physician, request admission for further management of new oxygen requirement/respiratory failure, pneumonia versus CHF. I decided to admit for further care. Weaned to 2 L oxygen by the time of arrival to the floor. Necessitating inpatient management. Problems addressed as follows: #Acute hypoxic respiratory failure # Atypical pneumonia ? Secondary to multifocal pneumonia and HFpEF exacerbation. Initially on 6 L in the ER due to sats in the low 80s. Weaned to 2 L by the time of arrival to the floor. Room air saturation of 86% during my exam on [employer]. Continue supplemental oxygen as needed for goal sats greater 90%. - DuoNebs every 6 hours scheduled - Budesonide twice daily - Comprehensive respiratory panel pending. Flu and COVID-negative. - White count normal at 5.5, repeat CBC, CMP, magnesium ordered for the morning. Inflammatory markers ordered for the morning with CRP and ESR - Per my review of CT of chest, patient has patchy bilateral lower lung opacifications versus edema with small pleural effusion on right side. [employer] film shows meniscus and blunting of costophrenic angle on right. - Pulmonology consulted to evaluate patient due to established patient. Will need follow-up as an outpatient. #HFpEF exacerbation ? Bilateral pleural effusions, BNP 5000 - Administered Lasix 80 mg IV once in the ED. -1500 cc so far. Will continue 40 mg IV daily. ? Echo obtained 1 month ago shows normal biventricular systolic function, borderline RV function. ? Cardiology consulted; continue Jardiance 10 mg, and Kerendia 10 mg. #Lower extremities ulcers #Lower extremity venous insufficiency, stasis ? Left dorsal foot, right medial ankle ulcers present on admission. Podiatry consulted as he follows with them as an outpatient. Wound dressed on admission with Betadine and clean gauze. -During last admission a month ago, A1c 5.3%, arterial ultrasound study unremarkable for PAD. ? Ulcers seem most consistent with venous stasis given location, and significant venous stasis changes in lower extremities including significant hemosiderin deposition. ? Will need outpatient podiatry follow-up #Macrocytic anemia, chronic, present on admission: Hemoglobin 8.8, stable from last admission. MCV 101. B12 was low at 220 last visit. Will administer B12 IM injection. #Opioid use disorder, in remission: Continue home Suboxone 16/4 mg daily. #Hypothyroidism: Continue home levothyroxine 25 mcg. TSH 2.8 on 12/15/24. #Anxiety/depression: Continue home venlafaxine 225 mg daily. Full code Lovenox 40 mg subcu daily Cardiac diet
--- NOTE | 2024-12-29 15:53 | PC.NURSE ---
Report called to Lolis EMANUEL
[2024-12-29] MEDS: LEVOFLOXACIN/D5W 750 MG/150 ML 750 MG/150 ML PIGGYBACK 100 MG IV (16:30)
[2024-12-29 17:20] LABS: Reflex Lactic Add Lactic Reflex
[2024-12-29 17:55] LABS: Lactic Acid Follow Up (RFLX 1) 1.6 mmol/L (0.7-2.1)
--- NOTE | 2024-12-29 18:07 | PC.WOUNDNOTE ---
BLE NOTED TO BE DRY, ASHY, DARK RED-PURPLE IN COLOR. SCALY/SCABBED AREAS NOTED TO TOP OF LEFT FOOT AND INNER RIGHT FOOT.
[2024-12-29] MEDS: BUDESONIDE 0.5MG/2ML NEB 0.5 MG IH (18:09)
[2024-12-29] MEDS: IPRATROPIUM/ALBUTEROL 3 ML NEB IH (18:09)
[2024-12-29] MEDS: SODIUM CHLORIDE 3% 15ML NEB 3 ML IH (18:10)
[2024-12-29 18:11] LABS: Troponin I 0.02 ng/ml (0.00-0.034)
[2024-12-29] MEDS: VITAMIN B-12 1,000 MCG 1ML VIAL 1000 MCG IM (20:21)
[2024-12-29] MEDS: PANTOPRAZOLE 40MG TABLET 40 MG PO (20:21)
[2024-12-29] MEDS: GABAPENTIN 300MG CAPSULE 300 MG PO (22:13)
[2024-12-30] VITALS (9 sets, daily range): BP systolic 104–125; BP diastolic 48–67; PULSE 63–80; RESP 16–19; TEMP 36.6–37; O2SAT 86–96; BMI 30.9
[2024-12-30] MEDS: IPRATROPIUM/ALBUTEROL 3 ML NEB IH ×3 (00:09→13:18)
--- NOTE | 2024-12-30 04:15 | PC.NURSE ---
Pt A&OX4. He has required 2-3 nasal cannula throughout the shift. Swelling and discoloration noted to BLE. He did complain of restless legs once and was medicated per MAR. No other complaints at this time, call light within reach.
[2024-12-30] MEDS: BUDESONIDE 0.5MG/2ML NEB 0.5 MG IH (06:02)
[2024-12-30 06:09] LABS: Hematocrit 24.2 % (42.0-52.0); Immature Granulocytes % 1.8 %; Mean Corpuscular HGB Conc 32.2 g/dL (31.8-35.4); Mean Corpuscular Hemoglobin 32.4 pg (27.0-31.2); Mean Corpuscular Volume 100.4 fl (80-94); Nucleated Red Blood Cells % 0.9 %; Platelet Count 126 K/mm3 (142-424); Red Blood Count 2.41 M/mm3 (4.60-6.20); Red Cell Distribution Width-SD 57.1 fL; White Blood Count 4.6 K/mm3 (4.8-10.8)
[2024-12-30 06:20] LABS: Hemoglobin 8.0 g/dL (14.1-18.0)
[2024-12-30 06:21] LABS: Albumin Level 3.6 g/dl (3.5-5.0); Chloride 93 mmol/L (98-107); Sodium 135 mmol/L (136-145)
[2024-12-30 06:24] LABS: Alanine Aminotransferase 6 U/L (12-78); Alkaline Phosphatase 95 U/L (38-126); Aspartate Amino Transferase 17 U/L (17-59); Bilirubin,Total 0.9 mg/dl (0.2-1.3); Blood Urea Nitrogen 9 mg/dl (9-20); Carbon Dioxide 35 mmol/L (22.0-30.0); Creatinine Clearance Estimated 111 mL/min (50-200); Creatinine,Serum 1.10 mg/dl (0.66-1.25); Estimated Glomerular Filt Rate 72 ml/min (>60); GFR (African American) 87 ML/MIN (>60)
[2024-12-30 06:25] LABS: Albumin/Globulin Ratio 1.4 (1.1-1.8); Calcium 8.4 mg/dl (8.4-10.2); Globulin 2.6 g/dL (1.3-3.2); Glucose 105 mg/dl (74-100); Magnesium 2.0 mg/dl (1.6-2.3); Total Protein,Serum 6.2 g/dl (6.3-8.2)
[2024-12-30 06:39] LABS: Anion Gap 10.1 mEq/L (5-15); Potassium 3.1 mmoL/L (3.5-5.1)
--- NOTE | 2024-12-30 06:53 | P.CONS_ITS ---
History of Present Illness *Admission Date: 12/29/24 *History of present illness: Mr. Barrera is a 49-year-old male who appears significantly older than stated age. History of HFpEF, venous stasis, insufficiency in lower legs, poorly healing foot wounds, COPD. Presented with shortness of breath and persistent cough that is nonproductive over the past week. Reports taking 2 rounds of antibiotics 3 and 2 weeks ago respectively. Last dose of antibiotics a week ago on Sunday. Was checking his oxygen at home today and found that he was hypoxic. Presented to the ER and was found to have O2 sats in the 70s to 80s. Initially placed on 6 L oxygen. Workup showed normal white count. Chest imaging showing edema versus atypical pneumonia with pleural effusion on right side. BNP elevated at 5000. Medicine consulted for admission and treatment of CHF versus atypical pneumonia. States he has had intermittent subjective fevers. No nausea or vomiting. No increased welling in his legs. Does have pain with deep inspiration predominantly on the left side. On arrival to the floor, patient was weaned to 2 L nasal cannula due to sats in the mid 80s on room air. Satting low 90s on 2 L. Alert and oriented x 4. Appears in mild distress. Chronically ill. 12/30/24: Podiatry consult: Wound 49-year-old male current podiatry patient of ours in the clinic was last seen by Dr. Bhatt on 12/09/2024. Patient currently has 2 wounds, 1 right medial ankle VLU, and left dorsal foot arterial ulcer. Patient had been doing daily dressing changes at home using Puracol, gauze and Naida. Today we will clean and debride ulcers and determine the appropriate dressings today. [facility] Disclaimer: The information contained in this section may have been updated after the patient was seen, as this information can be updated by other users. Medical History Vertigo Acute and chronic respiratory failure with hypoxia Peripheral vascular disease of foot Mixed hyperlipidemia COPD mixed type Hypothyroidism Hyperparathyroidism History of hypokalemia Tobacco abuse disorder Tobacco abuse counseling Hilar lymphadenopathy Mediastinal lymphadenopathy Screening for lung cancer COPD (chronic obstructive pulmonary disease) Smoking greater than 30 pack years Dyspnea on exertion MRSA (methicillin resistant Staphylococcus aureus) Arthritis CHF (congestive heart failure) PVD (peripheral vascular disease) PAD (peripheral artery disease) Myocardial infarction Hyperlipidemia Hypertension CAD (coronary artery disease) Atherosclerosis History of anemia Edema of both lower extremities 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 Insomnia Edema Surgical History Hx of neck surgery History of back surgery History of esophagogastroduodenoscopy (EGD) History of coronary artery stent placement Hx of cholecystectomy History of cardiac cath History of appendectomy History of colonoscopy Family History Father Cancer Mother Cancer Other Alcoholism Coronary artery disease Diabetes Heart attack Hyperlipidemia Hypertension Kidney disease Social History Smoking Status: Current every day smoker tobacco type: cigarettes packs per day: 1 alcohol intake: former year quit: soci substance use type: former substance user and painkillers current occupational status: disabled Travel in the last 8 weeks?: None adopted: No caregiver/support person: No foster care: No household members: family housing: house lives independently: Yes marital status: education level: high school current occupational exposures/hazards: No caffeine: Yes special bety needs: No agree to transfusion: No do you feel safe at home: Yes victim of physical abuse: No victim of emotional abuse: No victim of sexual abuse: No would you like helpful sources: No Have you lived/traveled outside [place] in past 30 days?: No Contact w/someone who lives/traveled outside [place] past 30 days?: No Exposure to someone with infectious disease in past 14 days?: No Do you have a fever (greater than 100.4 F or 38 C)?: No Have you tested positive for COVID-19?: No Exposed to someone with COVID-19 in past 14 days?: No Do you have a sore throat?: No Do you have a cough?: No Do you have any weakness?: No Do you have any diarrhea?: No Are you experiencing any unusual bleeding?: No Do you have any muscle aches/pain?: No Do you have any abdominal pain?: No Are you experiencing loss of taste or smell?: No Meds Home Medications and Allergies Home Medications ?Medication ?Instructions ?Recorded ?Confirmed ?Type buprenorphine 8 mg-naloxone 2 mg 2 tab sublingual CHAITANYA Y addiction 06/21/18 12/29/24 History sublingual tablet ergocalciferol (vitamin D2) 1,250 1,250 mcg PO WEEKLY #9 caps 10/31/23 12/29/24 Rx mcg (50,000 unit) capsule umeclidinium 62.5 mcg-vilanterol 1 inh inhalation CHAITANYA Y 90 days 02/18/24 12/29/24 Rx 25 mcg/actuation powdr for #180 ea inhalation (Anoro Ellipta) ipratropium 20 mcg-albuterol 100 2 puff inhalation BID 11/17/24 12/29/24 History mcg/actuation mist for inhalation (Combivent Respimat) levothyroxine 25 mcg tablet 25 mcg PO DAILY 11/17/24 0 12/29/24 History omeprazole 20 mg capsule,delayed 20 mg PO DAILY 12/29/24 History release venlafaxine 150 mg 150 mg PO DAILY 11/17/24 History capsule,extended release 24 hr venlafaxine 75 mg capsule,extended 75 mg PO DAILY 11/0712/29/24 History release 24 hr aspirin 81 mg tablet,delayed 81 mg PO DAILY 30 days #3 0 tabs 11/18/24 12/29/24 Rx release empagliflozin 10 mg tablet 10 mg PO DAILY 30 days #30 tabs 11/18/24 12/29/24 Rx (Jardiance) finerenone 10 mg tablet (Kerendia) 10 mg PO DAILY 30 d ays #30 tabs 11/18/24 12/29/24 Rx furosemide 40 mg tablet (Lasix) 40 mg PO DAILY 30 days #30 tabs 11/18/24 12/29/24 Rx meclizine 25 mg tablet 25 mg PO TID PRN dizziness 2 0 days 12/15/24 12/29/24 Rx #60 tabs New Prescriptions to Start Prescriptions: Allergies Allergy/AdvReac Type Severity Reaction Status Date / Time cephalexin (From Keflex) Allergy Verified 12/25/24 10:58 ciprofloxacin (From Cipro) Allergy Verified 12/25/24 10:58 tramadol Allergy Verified 12/25/24 10:58 Exam (Inpt) Vital signs and Labs for Last 24 Hours: Temp Pulse Resp BP Pulse Ox O2 Del Method O2 Flow Rate 98.6 F 66 16 120/65 92 L Nasal Cannula 3 12/30/24 04:00 12/30/24 06:04 12/30/24 04:00 12/30/24 04:00 12/30/24 06:04 12/30/24 06:44 12/30/24 06:44 Laboratory Results - last 24 hr 12/29/24 13:14: WBC 5.5, RBC 2.66 L, Hgb 8.8 L, Hct 26.8 L, MCV 100.8 H, MCH 33.1 H, MCHC 32.8, RDW 15.6, Plt Count 144, MPV 8.1, Neut % (Auto) 78.6, Lymph % (Auto) 13.5, [place] % (Auto) 5.3, Eos % (Auto) 0.2, Baso % (Auto) 0.4, Neut # (Auto) 4.3, Lymph # (Auto) 0.7, [place] # (Auto) 0.3, Eos # (Auto) 0.0, Baso # (Auto) 0.0, Sodium 133 L, Potassium 3.7, Chloride 94 L, Carbon Dioxide 28, Anion Gap 14.7, BUN 13, Creatinine 1.00, Estimated Creat Clear 127, Estimated GFR 80, Est GFR ( Amer) 97, Glucose 140 H, Calcium 8.6, Total Bilirubin 0.9, AST 22, ALT 12, Alkaline Phosphatase 114, Troponin I 0.02, NT-Pro-B Natriuret Pep 5190 H, Total Protein 7.3, Albumin 4.2, Globulin 3.1, Albumin/Globulin Ratio 1.4 12/29/24 13:17: VBG pH 7.33, VBG pCO2 51.7 H, VBG pO2 42.6 H, VBG HCO3 26.6, VBG Total CO2 28.2 H, VBG O2 Saturation 73.7 H, VBG Base Excess 0.7, VBG Lactic Acid 2.7 H 12/29/24 13:21: SARS-CoV-2 (PCR) Not detected, Influenza A Untype (PCR) Not detected, Influenza Type B (PCR) Not detected 12/29/24 17:25: Lactate 1.6, Troponin I 0.02 12/30/24 05:46: WBC 4.6 L, RBC 2.41 L, Hgb 8.0 L, Hct 24.2 L, MCV 100.4 H, MCH 32.4 H, MCHC 32.2, RDW 15.7, Plt Count 126 L, MPV 7.9, Neut % (Auto) 59.6, Lymph % (Auto) 29.8, [place] % (Auto) 7.7, Eos % (Auto) 0.7, Baso % (Auto) 0.4, Neut # (Auto) 2.7, Lymph # (Auto) 1.4, [place] # (Auto) 0.4, Eos # (Auto) 0.0, Baso # (Auto) 0.0, ESR 73 H, Sodium 135 L, Potassium 3.1 L, Chloride 93 L, Carbon Dioxide 35 H, Anion Gap 10.1, BUN 9 D, Creatinine 1.10, Estimated Creat Clear 111, Estimated GFR 72, Est GFR ( Amer) 87, Glucose 105 H D, Calcium 8.4, Magnesium 2.0, Total Bilirubin 0.9, AST 17, ALT 6 L D, Alkaline Phosphatase 95, Total Protein 6.2 L, Albumin 3.6 D, Globulin 2.6, Albumin/Globulin Ratio 1.4 I & O for Labs for Last 24 Hours: Intake & Output 12/27/24 12/28/24 12/29/24 12/30/24 23:59 23:59 23:59 23:59 Intake Total 930 / 930 Output Total 3000 / 3000 1200 / 1200 Balance -2069 / -2069 -1200 / -1200 Weight 209 lb 3 oz 209 lb 3 oz Microbiology Reports for the Last 24 Hours: Microbiology 12/29/24 19:20 Sputum - Expectorated Sputum Gram Stain - Final Constitutional: Present no acute distress and cooperative Head: Present normocephalic Eye: Present as per HPI Neck: Present normal inspection Respiratory: Present normal respiratory effort and able to speak in complete sentences Comment:: Patient wearing nasal cannula oxygen, no shortness of breath observed. Cardiac: Present posterior tibial pulses present and pedal pulses present Comment:: B/L DP/PT noted, the PT somewhat weaker than DP. -Previous arterial studies,05/17/21, FINDINGS: RIGHT LOWER EXTREMITY: Ankle- brachial pressure index: 0.94. Comments: Normal LEFT LOWER EXTREMITY: Ankle-brachial pressure index: 1.02. Comments: Normal CONCLUSION: No evidence of significant obstructive peripheral vascular disease of the lower extremities. Comments:: deferred Rectal (male): Present deferred (male): Present deferred Extremities: Present tenderness Comment:: B/L lower legs skin is dark in color, thickened skin from history of peripheral vascular disease. - left dorsal foot would get better and then get worse, he has had it off and on over a year. The Right medial ankle has been there a few months now and his wound just wont heal. -Nails, thick and very long, has not been trimmed for some time. Nails trimmed x 10. -Thick hyper-keratosis noted to both feet and lower legs. Skin: Present wounds Comment:: -Right medial ankle ulcer, wound Debrided with a sterile curette sharply, excisionally through skin into the subcu layer. Fibrotic tissue was removed. Good bleeding was noted. Granular base was noted. Post debridement the wound measured 1.0 x 1.4 x 0.1cm -Dressing; painted with betadine, covered with dry gauze, kerlix. -Left dorsal foot ulcer, wound Debrided with a sterile curette sharply, excisionally through skin into the subcu layer. Fibrotic tissue was removed. Good bleeding was noted. Granular base was noted. Post debridement the wound measured 2.0 x 2.0 x 0.1 cm. -Dressing; painted with betadine, covered with dry gauze, kerlix. Neuro: Present Motor Function Intact, Sensory Function Intact, alert, oriented x 3 and tone normal Comment:: Patient noted dull sensation to top of feet and toes and plantar surface with monofilament. He could tell I was touching him, but could not make out that it was a sharp sensation. Ankle: right: swelling (Trace Right medial ulcer edema ) and right: wound (RIght medial ankle ulcer, Left dorsal foot ulcer.) Feet/Toes: bilateral: erythema (discolored b/l lower legs; PVD), bilateral: hammer toe, bilateral: nail abnormalities (Nails were long, thick and curved from very long length ), bilateral: Ingrown Toenail (incurvated nails ), bilateral: onychomycosis (suspected; yellow in color, crumbly when trimmed. ), bilateral: tenderness (Nails tender when trimmed due to length) and bilateral: wound (Right medial ankle, left dorsal foot wounds) Inspection: Present foot deformity deformity: Present hammer toes, nail disorder, skin break and ulceration (Right medial ankle wound, Left dorsal foot wound) Pulses: L dorsalis pedis pulse: normal, R dorsalis pedis pulse: normal, L posterior tibial pulse: diminished (Present but decreased ) and R posterior tibial pulse: diminished (Present but decreased ) CFT: normal: CFT Monofilament exam: L 1st metatarsals: decreased (Sensation noted but was dull ), L 3rd metatarsals: decreased, L 5th metatarsals: decreased, L great toe: decreased, L 3rd toe: decreased, L 5th toe: decreased, R 1st metatarsals: decreased, R 3rd metatarsals: decreased, R 5th metatarsals: decreased, R great toe: decreased, R 3rd toe: decreased and R 5th toe: decreased Pinprick: L great toe: abnormal and R great toe: abnormal Ankle reflex: Left: abnormal and Right: abnormal Results Labs 12/30/24 05:46 12/30/24 05:46 Labs: Abnormal lab results 12/29/24 12/29/24 12/30/24 Range/Units 13:14 13:17 05:46 WBC 4.6 L (4.8-10.8) K/mm3 RBC 2.66 L 2.41 L (4.60-6.20) M/mm3 Hgb 8.8 L 8.0 L (14.1-18.0) g/dL Hct 26.8 L 24.2 L (42.0-52.0) % MCV 100.8 H 100.4 H (80-94) fl MCH 33.1 H 32.4 H (27.0-31.2) pg Plt Count 126 L (142-424) K/mm3 ESR 73 H (0-15) mm/hr VBG pCO2 51.7 H (35-51) mmol/L VBG pO2 42.6 H (28-40) mmol/L VBG Total CO2 28.2 H (23-27) mmol/L VBG O2 Saturation 73.7 H (50-70) % VBG Lactic Acid 2.7 H (0.4-2.0) mmol/L Sodium 133 L 135 L (136-145) mmol/L Potassium 3.1 L (3.5-5.1) mmoL/L Chloride 94 L 93 L (98-107) mmol/L Carbon Dioxide 35 H (22.0-30.0) mmol/L Glucose 140 H 105 H D (74-100) mg/dl ALT 6 L D (12-78) U/L NT-Pro-B Natriuret Pep 5190 H (0-125) pg/mL Total Protein 6.2 L (6.3-8.2) g/dl H & H 12/29/24 12/30/24 Range/Units 13:14 05:46 Hgb 8.8 L 8.0 L (14.1-18.0) g/dL Hct 26.8 L 24.2 L (42.0-52.0) % All other labs normal. Assessment and Plan *Assessment and plan (1) Peripheral vascular disease of foot: Status: Acute Category: Medical Code(s): I73.9 - Peripheral vascular disease, unspecified (2) Foot ulcer, right: Status: Acute Qualifiers: Non-pressure ulcer stage: with other severity Qualified Code(s): L 97.518 - Non-pressure chronic ulcer of other part of right foot with other specified severity Category: Medical Code(s): L97.519 - Non-pressure chronic ulcer of other part of right foot with unspecified severity (3) Supplemental oxygen dependent: Status: Resolved Category: Medical Code(s): Z99.81 - Dependence on supplemental oxygen (4) Wound of right ankle: Status: Acute Qualifiers: Encounter type: initial encounter Qualified Code(s): S91.001A - Unspecified open wound, right ankle, initial encounter Category: Medical Code(s): S91.001A - Unspecified open wound, right ankle, initial encounter (5) Wound of left foot: Status: Acute Category: Medical Code(s): S91.302A - Unspecified open wound, left foot, initial encounter (6) Onychodystrophy: Status: Acute Category: Medical Code(s): L60.3 - Nail dystrophy (7) Keratosis: Status: Acute Category: Medical Code(s): L57.0 - Actinic keratosis (8) Onychomycosis: Status: Acute Category: Medical Code(s): B35.1 - Tinea unguium (9) Acquired hammer toes of both feet: Status: Acute Category: Medical Code(s): M20.41 - Other hammer toe(s) (acquired), right foot; M20.42 - Other hammer toe(s) (acquired), left foot (10) Decreased sensation of lower extremity: Status: Acute Category: Medical Code(s): R20.8 - Other disturbances of skin sensation Plan 12/30/24: Podiatry consult -No surgical plans per the podiatry standpoint -Wounds to bilateral feet were cleaned and debrided see above assessment -Wounds were dressed with betadine gauze, dry gauze, kerlix. -Daily dressing changes -WBaT. Check if he has post op shoes. -Defer antibiotic tx to Hospitalist team. -Podiatry will continue to follow -Patient can follow up in Podiatry clinic when discharged 1-2 weeks -All orders per Dr. Bhatt
[2024-12-30 07:46] LABS: C-Reactive Protein 18.9 mg/L (0-4)
[2024-12-30 07:59] LABS: Procalcitonin 0.098 ng/mL (0.0-2.0)
[2024-12-30 08:29] LABS: Adenovirus,PCR Not Detected (NotDetected); Chlamydophila Pneumoniae, PCR Not Detected (NotDetected); Coronavirus 19, PCR Not Detected (NotDetected); Coronovirus HKU1,PCR Not Detected (NotDetected); Influenza A, PCR Not Detected (NotDetected); Influenza AH1, 2009 Not Detected (NotDetected); Influenza AH1, PCR Not Detected (NotDetected); Influenza AH3,PCR Not Detected (NotDetected); Influenza B, PCR Not Detected (NotDetected); Mycoplasma Pneumoniae, PCR Not Detected (NotDetected); Parainfluenza 1, PCR Not Detected (NotDetected); Parainfluenza 2, PCR Not Detected (NotDetected); Parainfluenza 3, PCR Not Detected (NotDetected); Parainfluenza 4, PCR Not Detected (NotDetected)
--- NOTE | 2024-12-30 08:37 | HMH.PHAINT1 ---
Pharmacy Intervention Comments: home medication list verified using list from outpatient pharmacy and pt interview. Mr Bruce does confess to some non-compliance
[2024-12-30] MEDS: FUROSEMIDE 40MG/4ML VIAL 40 MG IV (08:50)
[2024-12-30] MEDS: BUPRENORPHINE/NALOXONE 8MG/2MG ODT 2 EACH SL (08:50)
[2024-12-30] MEDS: LEVOTHYROXINE 25MCG (0.025MG) TAB 25 MCG PO (08:50)
[2024-12-30] MEDS: ASPIRIN EC 81MG TABLET 81 MG PO (08:50)
[2024-12-30] MEDS: POTASSIUM CHLORIDE 20MEQ TAB 40 MEQ PO ×2 (08:50→11:09)
[2024-12-30] MEDS: SPIRONOLACTONE 25MG TABLET 25 MG PO (08:50)
[2024-12-30] MEDS: VENLAFAXINE XR 75MG CAPSULE 225 MG PO (08:50)
[2024-12-30] MEDS: EMPAGLIFLOZIN 10MG TABLET 10 MG PO (08:50)
--- NOTE | 2024-12-30 09:10 | EXP.CARD.CON ---
History of Present Illness History of Present Illness Consult date: 12/30/24 Requesting physician: Óscar Christopher Consult reason: shortness of breath Chief complaint: soa and cough History of present illness: Fili Barrera is a 49-year-old male with a past medical history of CAD, HFpEF and COPD who presented to emergency department with complaints of ongoing shortness of breath and persistent cough with pain to left ribs and left back x 1 week. Patient reports the pain feels like a pulled muscle and is exacerbated with movement. Of note patient reports he previously he recently took 2 rounds of antibiotics 2 to 3 weeks ago with his last dose being on Sunday. An oxygen check at home showed patient to be hypoxic which is what prompted him to go to the emergency department. Upon presentation to ER initial oxygen saturation was 70-80 %. EKG on presentation showed sinus rhythm at a rate of 87 and is negative for STEMI. Chest CTA negative for pulmonary embolism or aortic dissection, does show worsening bilateral ground glass and airspace opacities favored to represent pneumonia. Edema not excluded. Serial troponins remain negative. proBNP 5190. Patient was admitted and started on IV diuretics and has diuresed well throughout the evening. Patient reports this morning he is feeling better and would like to go home. Cardiology asked to evaluate for CHF exacerbation. Repeat limited echo is pending [facility] Disclaimer: The information contained in this section may have been updated after the patient was seen, as this information can be updated by other users. Medical History Vertigo Acute and chronic respiratory failure with hypoxia Peripheral vascular disease of foot Mixed hyperlipidemia COPD mixed type Hypothyroidism Hyperparathyroidism History of hypokalemia Tobacco abuse disorder Tobacco abuse counseling Hilar lymphadenopathy Mediastinal lymphadenopathy Screening for lung cancer COPD (chronic obstructive pulmonary disease) Smoking greater than 30 pack years Dyspnea on exertion MRSA (methicillin resistant Staphylococcus aureus) Arthritis CHF (congestive heart failure) PVD (peripheral vascular disease) PAD (peripheral artery disease) Myocardial infarction Hyperlipidemia Hypertension CAD (coronary artery disease) Atherosclerosis History of anemia Edema of both lower extremities 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 Insomnia Edema Surgical History Hx of neck surgery History of back surgery History of esophagogastroduodenoscopy (EGD) History of coronary artery stent placement Hx of cholecystectomy History of cardiac cath History of appendectomy History of colonoscopy Family History Father Cancer Mother Cancer Other Alcoholism Coronary artery disease Diabetes Heart attack Hyperlipidemia Hypertension Kidney disease Social History Smoking Status: Current every day smoker tobacco type: cigarettes packs per day: 1 alcohol intake: former year quit: soci substance use type: former substance user and painkillers current occupational status: disabled Travel in the last 8 weeks?: None adopted: No caregiver/support person: No foster care: No household members: family housing: house lives independently: Yes marital status: education level: high school current occupational exposures/hazards: No caffeine: Yes special bety needs: No agree to transfusion: No do you feel safe at home: Yes victim of physical abuse: No victim of emotional abuse: No victim of sexual abuse: No would you like helpful sources: No Have you lived/traveled outside [place] in past 30 days?: No Contact w/someone who lives/traveled outside [place] past 30 days?: No Exposure to someone with infectious disease in past 14 days?: No Do you have a fever (greater than 100.4 F or 38 C)?: No Have you tested positive for COVID-19?: No Exposed to someone with COVID-19 in past 14 days?: No Do you have a sore throat?: No Do you have a cough?: No Do you have any weakness?: No Do you have any diarrhea?: No Are you experiencing any unusual bleeding?: No Do you have any muscle aches/pain?: No Do you have any abdominal pain?: No Are you experiencing loss of taste or smell?: No Review of Systems Review of Systems Review of systems:: pertinent systems reviewed and negative unless documented below *Cardiovascular Cardiovascular: Reports dyspnea *Respiratory Respiratory: Reports cough and Reports dyspnea Exam Data for Last 24 hours Vital signs and Labs for Last 24 Hours: Temp Pulse Resp BP Pulse Ox O2 Del Method O2 Flow Rate 97.8 F 63 17 104/48 L 94 L Nasal Cannula 2 12/30/24 08:00 12/30/24 08:00 12/30/24 08:00 12/30/24 08:00 12/30/24 08:00 12/30/24 08:00 12/30/24 08:00 Laboratory Results - last 24 hr 12/29/24 13:14: WBC 5.5, RBC 2.66 L, Hgb 8.8 L, Hct 26.8 L, MCV 100.8 H, MCH 33.1 H, MCHC 32.8, RDW 15.6, Plt Count 144, MPV 8.1, Neut % (Auto) 78.6, Lymph % (Auto) 13.5, Forest % (Auto) 5.3, Eos % (Auto) 0.2, Baso % (Auto) 0.4, Neut # (Auto) 4.3, Lymph # (Auto) 0.7, Forest # (Auto) 0.3, Eos # (Auto) 0.0, Baso # (Auto) 0.0, Sodium 133 L, Potassium 3.7, Chloride 94 L, Carbon Dioxide 28, Anion Gap 14.7, BUN 13, Creatinine 1.00, Estimated Creat Clear 127, Estimated GFR 80, Est GFR ( Amer) 97, Glucose 140 H, Calcium 8.6, Total Bilirubin 0.9, AST 22, ALT 12, Alkaline Phosphatase 114, Troponin I 0.02, NT-Pro-B Natriuret Pep 5190 H, Total Protein 7.3, Albumin 4.2, Globulin 3.1, Albumin/Globulin Ratio 1.4 12/29/24 13:17: VBG pH 7.33, VBG pCO2 51.7 H, VBG pO2 42.6 H, VBG HCO3 26.6, VBG Total CO2 28.2 H, VBG O2 Saturation 73.7 H, VBG Base Excess 0.7, VBG Lactic Acid 2.7 H 12/29/24 13:21: SARS-CoV-2 (PCR) Not detected, Influenza A Untype (PCR) Not detected, Influenza Type B (PCR) Not detected 12/29/24 17:25: Lactate 1.6, Troponin I 0.02 12/30/24 05:46: WBC 4.6 L, RBC 2.41 L, Hgb 8.0 L, Hct 24.2 L, MCV 100.4 H, MCH 32.4 H, MCHC 32.2, RDW 15.7, Plt Count 126 L, MPV 7.9, Neut % (Auto) 59.6, Lymph % (Auto) 29.8, Forest % (Auto) 7.7, Eos % (Auto) 0.7, Baso % (Auto) 0.4, Neut # (Auto) 2.7, Lymph # (Auto) 1.4, Forest # (Auto) 0.4, Eos # (Auto) 0.0, Baso # (Auto) 0.0, ESR 73 H, Sodium 135 L, Potassium 3.1 L, Chloride 93 L, Carbon Dioxide 35 H, Anion Gap 10.1, BUN 9 D, Creatinine 1.10, Estimated Creat Clear 111, Estimated GFR 72, Est GFR ( Amer) 87, Glucose 105 H D, Calcium 8.4, Magnesium 2.0, Total Bilirubin 0.9, AST 17, ALT 6 L D, Alkaline Phosphatase 95, C-Reactive Protein 18.9 H, Total Protein 6.2 L, Albumin 3.6 D, Globulin 2.6, Albumin/Globulin Ratio 1.4, Procalcitonin 0.098 I & O for Last 24 hours: Intake & Output 12/27/24 12/28/24 12/29/24 12/30/24 23:59 23:59 23:59 23:59 Intake Total 930 / 930 Output Total 3000 / 3750 1200 / 1200 Balance -2070 / -2820 -1200 / -1200 Weight 209 lb 3 oz 209 lb 3 oz Microbiology Reports for the Last 24 Hours: Microbiology 12/29/24 19:20 Sputum - Expectorated Sputum Gram Stain - Final Constitutional Constitutional: no acute distress *Routine Respiratory Exam Respiratory: Present rhonchi, wheezes and symmetric chest movement *Routine Cardiovascular Exam Cardiovascular: Present RRR, Normal S1 and Normal S2 *Routine Abdominal Exam Abdominal: Present soft and normoactive bowel sounds; Absent tenderness *Routine Extremities Exam Extremities: Present full ROM and normal capillary refill; Absent edema *Routine Skin Exam Skin: Present intact, dry and warm Detailed Neck Exam: Thyroids Thyroid: Absent bruit Meds Home Medications and Allergies Home Medications ?Medication ?Instructions ?Recorded ?Confirmed ?Type buprenorphine 8 mg-naloxone 2 mg 2 tab sublingual DAILY addiction 06/21/18 12/29/24 History sublingual tablet ergocalciferol (vitamin D2) 1,250 1,250 mcg PO WEEKLY #9 caps 10/31/23 12/29/24 Rx mcg (50,000 unit) capsule umeclidinium 62.5 mcg-vilanterol 1 inh inhalation DAILY 90 days 02/18/24 12/29/24 Rx 25 mcg/actuation powdr for #180 ea inhalation (Anoro Ellipta) ipratropium 20 mcg-albuterol 100 2 puff inhalation BID 11/17/24 12/29/24 History mcg/actuation mist for inhalation (Combivent Respimat) levothyroxine 25 mcg tablet 25 mcg PO DAILY 11/17/24 12/30/24 History omeprazole 20 mg capsule,delayed 20 mg PO DAILY 11/17/24 12/29/24 History release venlafaxine 150 mg 150 mg PO DAILY 11/17/24 12/30/24 History capsule,extended release 24 hr venlafaxine 75 mg capsule,extended 75 mg PO DAILY 11/17/24 12/30/24 History release 24 hr aspirin 81 mg tablet,delayed 81 mg PO DAILY 30 days #30 tabs 11/18/24 12/29/24 Rx release empagliflozin 10 mg tablet 10 mg PO DAILY 30 days #30 tabs 11/18/24 12/29/24 Rx (Jardiance) finerenone 10 mg tablet (Kerendia) 10 mg PO DAILY 30 days #30 tabs 11/18/24 12/29/24 Rx furosemide 40 mg tablet (Lasix) 40 mg PO DAILY 30 days #30 tabs 11/18/24 12/29/24 Rx meclizine 25 mg tablet 25 mg PO TID PRN dizziness 20 days 12/15/24 12/29/24 Rx #60 tabs New Prescriptions to Start Prescriptions: Allergies Allergy/AdvReac Type Severity Reaction Status Date / Time cephalexin (From Keflex) Allergy Verified 12/25/24 10:58 ciprofloxacin (From Cipro) Allergy Verified 12/25/24 10:58 tramadol Allergy Verified 12/25/24 10:58 Assessment and Plan *Assessment and plan (1) Acute on chronic heart failure with preserved ejection fraction (HFpEF): Status: Acute Category: Medical Code(s): I50.33 - Acute on chronic diastolic (congestive) heart failure (2) Pneumonia: Status: Acute Qualifiers: Laterality: bilateral Lung location: lower lobe of lung Pneumonia type: due to unspecified organism Qualified Code(s): J18.9 - Pneumonia, unspecified organism Category: Medical Code(s): J18.9 - Pneumonia, unspecified organism (3) Acute and chronic respiratory failure with hypoxia: Status: Acute Category: Medical Code(s): J96.21 - Acute and chronic respiratory failure with hypoxia Plan Acute hypoxic respiratory failure Likely combination of atypical pneumonia and volume overload History of HFpEF Will defer antibiotic treatment to primary and pulmonology service BNP on admission greater than 5000. Worsening bilateral ground glass opacities noted representing pneumonia, superimposed edema not excluded on CTA. Historically normal EF, repeat limited EF 55-60 Continue Lasix 40 mg p.o. daily and Aldactone 25 mg p.o. daily. Continue aspirin and Jardiance. Has diuresed greater than 5 L. Patient reports he is feeling better. History of coronary artery disease Medical management heart cath 06/2021. Serial troponins negative EKG negative for acute ischemic changes Continue aspirin and statin CV summary 12/30/2024: Repeat limited echo shows an EF of 55 to 60%. Patient is CV stable for discharge home. Please have patient continue below listed medications and follow-up in cardiology clinic in 1 week for reevaluation. Will need repeat labs at follow-up. Cardiac meds Aspirin 81 mg p.o. daily Lipitor 40 mg p.o. daily Lasix 40 mg p.o. daily Aldactone 25 mg p.o. daily Jardiance 10 mg p.o. daily
--- NOTE | 2024-12-30 09:23 | CA_ITS ---
APPROVED REPORT EXAM: Limited 2D Echocardiogram Inspector [employer]: Emperatriz Chase, RCS, RVS Ht: 5 ft 9 in Wt: 209lbs BSA: 2.10 BP: 104/48 mmHg Indications: CHF, CAD-Pneumonia 2D Dimensions IVSd 0.92 cm LVEF (Visual) 60.00 % PWd 0.92 cm LVDd 5.13 cm LVDs 2.99 cm M-Mode Dimensions RVDd 2.43 cm (0.9-2.6) LA Diam 4.50 cm (1.9-4.0) LVDd 5.08 cm (3.5-5.7) LVDs 2.62 cm (3.5-5.7) IVSd 1.10 cm (0.6-1.1) PWd 1.21 cm (0.6-1.1) EF (Teich) 60.00% EPSs 0.42 cm FS 40.00% EDV (Teich) 122.70 mL ESV (Teich) 25.10 mL Other Information Study Quality: Fair Conclusion This is a limited TTE to evaluate for LV systolic function. Limited windows are obtained. The left ventricle is normal in size. There is increased overall thickness. There is normal global LV systolic function. No regional wall motion abnormalities are noted. LVEF is 55-60%. The right ventricle is mildly dilated. There is normal RV systolic function. Electronically signed by : Radha Lorenzo MD 12/30/2024 11:19:49
--- NOTE | 2024-12-30 15:02 | P.DS_ITS ---
General Admission date:: 12/29/24 HPI HPI HPI: Mr. Barrera is a 49-year-old male who appears significantly older than stated age. History of HFpEF, venous stasis, insufficiency in lower legs, poorly healing foot wounds, COPD. Presented with shortness of breath and persistent cough that is nonproductive over the past week. Reports taking 2 rounds of antibiotics 3 and 2 weeks ago respectively. Last dose of antibiotics a week ago on Sunday. Was checking his oxygen at home today and found that he was hypoxic. Presented to the ER and was found to have O2 sats in the 70s to 80s. Initially placed on 6 L oxygen. Workup showed normal white count. Chest imaging showing edema versus atypical pneumonia with pleural effusion on right side. BNP elevated at 5000. Medicine consulted for admission and treatment of CHF versus atypical pneumonia. States he has had intermittent subjective fevers. No nausea or vomiting. No increased welling in his legs. Does have pain with deep inspiration predominantly on the left side. On arrival to the floor, patient was weaned to 2 L nasal cannula due to sats in the mid 80s on room air. Satting low 90s on 2 L. Alert and oriented x 4. Appears in mild distress. Chronically ill. 12/30/24: Podiatry consult: Wound 49-year-old male current podiatry patient of ours in the clinic was last seen by Dr. Bhatt on 12/09/2024. Patient currently has 2 wounds, 1 right medial ankle VLU, and left dorsal foot arterial ulcer. Patient had been doing daily dressing changes at home using Puracol, gauze and Naida. Today we will clean and debride ulcers and determine the appropriate dressings today. Hospital Course Hospital Course Hospital Course: Fili Barrera is a 49-year-old male with history of COPD, HFpEF, who presented with worsening shortness of breath. Completed 2 rounds of antibiotics and has continued to have symptoms. Subjective fevers at home. Found to be hypoxic on his home O2 meter today. Presented to the ER and continued to be hypoxic. Chest imaging concerning for CHF versus pneumonia. BNP elevated at 5000. Discussed case with ER physician, request admission for further management of new oxygen requirement/respiratory failure, pneumonia versus CHF. I decided to admit for further care. Weaned to 2 L oxygen by the time of arrival to the floor. Necessitating inpatient management. Problems addressed as follows: #Acute hypoxic respiratory failure #HFpEF exacerbation #Atypical pneumonia ? Secondary to bibasilar pneumonia and HFpEF exacerbation. Initially on 6 L in the ER due to sats in the low 80s. Initial BNP 5000. ? Echo obtained 1 month ago shows normal biventricular systolic function, borderline RV function. ? Clinically improved with IV levofloxacin, Lasix, spironolactone. Weaned to room air with appropriate saturations even on walk test. Net -4 L with diuresis. ? Discharged with Lasix 40 mg daily (patient has been taking as needed), Kerendia 10 mg, Jardiance 10 mg. Cardiology consulted, agreed with plan of care. #Lower extremities ulcers #Lower extremity venous insufficiency, stasis ? Left dorsal foot, right medial ankle ulcers present on admission. Podiatry consulted as he follows with them as an outpatient. Wound dressed on admission with Betadine and clean gauze. - During last admission a month ago, A1c 5.3%, arterial ultrasound study unremarkable for PAD. ? Ulcers seem most consistent with venous stasis given location, and significant venous stasis changes in lower extremities including significant hemosiderin deposition. ? Will follow-up with podiatry within 2 weeks. ? Started gabapentin 300 mg nightly for neuropathic pain. #Macrocytic anemia, chronic, present on admission: Hemoglobin 8.8, stable from last admission. MCV 101. B12 was low at 220 last visit. Will administer B12 IM injection. Continue oral vitamin B12 supplementation. #Opioid use disorder, in remission: Continue home Suboxone 16/4 mg daily. #Hypothyroidism: Continue home levothyroxine 25 mcg. TSH 2.8 on 12/15/24. #Anxiety/depression: Continue home venlafaxine 225 mg daily. Total time spent on discharge: 35 minutes on chart review, counseling, documentation, and direct care with patient. Exam Data for Last 24 hours Vital signs and Labs for Last 24 Hours: Temp Pulse Resp BP Pulse Ox O2 Del Method O2 Flow Rate 98.1 F 80 19 104/50 L 95 Room Air 2 12/30/24 11:43 12/30/24 13:18 12/30/24 11:43 12/30/24 11:43 12/30/24 14:53 12/30/24 14:59 12/30/24 13:00 Laboratory Results - last 24 hr 12/29/24 17:25: Lactate 1.6, Troponin I 0.02 12/30/24 05:46: WBC 4.6 L, RBC 2.41 L, Hgb 8.0 L, Hct 24.2 L, MCV 100.4 H, MCH 32.4 H, MCHC 32.2, RDW 15.7, Plt Count 126 L, MPV 7.9, Neut % (Auto) 59.6, Lymph % (Auto) 29.8, [place] % (Auto) 7.7, Eos % (Auto) 0.7, Baso % (Auto) 0.4, Neut # (Auto) 2.7, Lymph # (Auto) 1.4, [place] # (Auto) 0.4, Eos # (Auto) 0.0, Baso # (Auto) 0.0, ESR 73 H, Sodium 135 L, Potassium 3.1 L, Chloride 93 L, Carbon Dioxide 35 H, Anion Gap 10.1, BUN 9 D, Creatinine 1.10, Estimated Creat Clear 111, Estimated GFR 72, Est GFR ( Amer) 87, Glucose 105 H D, Calcium 8.4, Magnesium 2.0, Total Bilirubin 0.9, AST 17, ALT 6 L D, Alkaline Phosphatase 95, C-Reactive Protein 18.9 H, Total Protein 6.2 L, Albumin 3.6 D, Globulin 2.6, Albumin/Globulin Ratio 1.4, Procalcitonin 0.098 12/30/24 08:20: Chlamy pneumoniae PCR Not detected, Adenovirus (PCR) Not detected, B. pertussis DNA (PCR) Not detected, Coronavirus OC43 (PCR) Not detected, Coronavirus HKU1 (PCR) Not detected, Coronavirus 229E (PCR) Not detected, SARS-CoV-2 (PCR) Not detected, Coronavirus NL63 (PCR) Not detected, Human Metapneumovir PCR Not detected, Influenza A (H1) PCR Not detected, Influ A (H1N1/09) PCR Not detected, Influenza A (H3) PCR Not detected, Influenza Type A (PCR) Not detected, Influenza Type B (PCR) Not detected, M. pneumoniae (PCR) Not detected, Parainfluenza 1 (PCR) Not detected, Parainfluenza 2 (PCR) Not detected, Parainfluenza 3 (PCR) Not detected, Parainfluenza 4 (PCR) Not detected, RSV (PCR) Not detected, Entero/Rhino (PCR) Not detected Temp Pulse Resp BP Pulse Ox O2 Del Method O2 Flow Rate 97.8 F 63 17 104/48 L 94 L Nasal Cannula 2 12/30/24 08:00 12/30/24 08:00 12/30/24 08:00 12/30/24 08:00 12/30/24 08:00 12/30/24 08:00 12/30/24 08:00 Laboratory Results - last 24 hr 12/29/24 13:14: WBC 5.5, RBC 2.66 L, Hgb 8.8 L, Hct 26.8 L, MCV 100.8 H, MCH 33.1 H, MCHC 32.8, RDW 15.6, Plt Count 144, MPV 8.1, Neut % (Auto) 78.6, Lymph % (Auto) 13.5, [place] % (Auto) 5.3, Eos % (Auto) 0.2, Baso % (Auto) 0.4, Neut # (Auto) 4.3, Lymph # (Auto) 0.7, [place] # (Auto) 0.3, Eos # (Auto) 0.0, Baso # (Auto) 0.0, Sodium 133 L, Potassium 3.7, Chloride 94 L, Carbon Dioxide 28, Anion Gap 14.7, BUN 13, Creatinine 1.00, Estimated Creat Clear 127, Estimated GFR 80, Est GFR ( Amer) 97, Glucose 140 H, Calcium 8.6, Total Bilirubin 0.9, AST 22, ALT 12, Alkaline Phosphatase 114, Troponin I 0.02, NT-Pro-B Natriuret Pep 5190 H, Total Protein 7.3, Albumin 4.2, Globulin 3.1, Albumin/Globulin Ratio 1.4 12/29/24 13:17: VBG pH 7.33, VBG pCO2 51.7 H, VBG pO2 42.6 H, VBG HCO3 26.6, VBG Total CO2 28.2 H, VBG O2 Saturation 73.7 H, VBG Base Excess 0.7, VBG Lactic Acid 2.7 H 12/29/24 13:21: SARS-CoV-2 (PCR) Not detected, Influenza A Untype (PCR) Not detected, Influenza Type B (PCR) Not detected 12/29/24 17:25: Lactate 1.6, Troponin I 0.02 12/30/24 05:46: WBC 4.6 L, RBC 2.41 L, Hgb 8.0 L, Hct 24.2 L, MCV 100.4 H, MCH 32.4 H, MCHC 32.2, RDW 15.7, Plt Count 126 L, MPV 7.9, Neut % (Auto) 59.6, Lymph % (Auto) 29.8, [place] % (Auto) 7.7, Eos % (Auto) 0.7, Baso % (Auto) 0.4, Neut # (Auto) 2.7, Lymph # (Auto) 1.4, [place] # (Auto) 0.4, Eos # (Auto) 0.0, Baso # (Auto) 0.0, ESR 73 H, Sodium 135 L, Potassium 3.1 L, Chloride 93 L, Carbon Dioxide 35 H, Anion Gap 10.1, BUN 9 D, Creatinine 1.10, Estimated Creat Clear 111, Estimated GFR 72, Est GFR ( Amer) 87, Glucose 105 H D, Calcium 8.4, Magnesium 2.0, Total Bilirubin 0.9, AST 17, ALT 6 L D, Alkaline Phosphatase 95, C-Reactive Protein 18.9 H, Total Protein 6.2 L, Albumin 3.6 D, Globulin 2.6, Albumin/Globulin Ratio 1.4, Procalcitonin 0.098 I & O for Last 24 hours: Intake & Output 12/27/24 12/28/24 12/29/24 12/30/24 23:59 23:59 23:59 23:59 Intake Total 930 / 930 600 / 600 Output Total 3000 / 3750 2575 / 2575 Balance -2069 Weight 94.886 kg 94.886 kg Intake & Output 12/27/24 12/28/24 12/29/24 12/30/24 23:59 23:59 23:59 23:59 Intake Total 930 / 930 Output Total 3000 / 3750 1200 / 1200 Balance -2069 Weight 209 lb 3 oz 209 lb 3 oz Microbiology Reports for the Last 24 Hours: Microbiology 12/29/24 19:20 Sputum - Expectorated Sputum Gram Stain - Final Microbiology 09/22/25 19:20 Sputum - Expectorated Sputum Gram Stain - Final Constitutional Constitutional: no acute distress *Routine HEENT Exam Head: Present normocephalic Eye: Present EOMI and PERRL ENT: Present mucous membranes moist *Routine Neck Exam Neck: Present supple; Absent lymphadenopathy *Routine Respiratory Exam Respiratory: Present rhonchi, wheezes and symmetric chest movement *Routine Cardiovascular Exam Cardiovascular: Present RRR, Normal S1 and Normal S2 *Routine Abdominal Exam Abdominal: Present soft and normoactive bowel sounds; Absent tenderness *Routine Extremities Exam Extremities: Present full ROM and normal capillary refill; Absent edema Comments: Significant venous stasis changes including hemosiderin deposition up to knees. *Routine Skin Exam Skin: Present intact, dry and warm *Routine Neurological Exam Neurological: Present alert and oriented X3 Detailed Neck Exam: Thyroids Thyroid: Absent bruit Results Data Completed and Pending Labs on day of discharge: Labs from last 24 hours 12/30/24 12/30/24 12/29/24 08:20 05:46 17:25 WBC 4.6 L RBC 2.41 L Hgb 8.0 L Hct 24.2 L MCV 100.4 H MCH 32.4 H MCHC 32.2 RDW 15.7 Plt Count 126 L MPV 7.9 Neut % (Auto) 59.6 Lymph % (Auto) 29.8 [place] % (Auto) 7.7 Eos % (Auto) 0.7 Baso % (Auto) 0.4 Neut # (Auto) 2.7 Lymph # (Auto) 1.4 [place] # (Auto) 0.4 Eos # (Auto) 0.0 Baso # (Auto) 0.0 ESR 73 H Sodium 135 L Potassium 3.1 L Chloride 93 L Carbon Dioxide 35 H Anion Gap 10.1 BUN 9 D Creatinine 1.10 Estimated Creat Clear 111 Estimated GFR 72 Est GFR ( Amer) 87 Glucose 105 H D Lactate 1.6 Calcium 8.4 Magnesium 2.0 Total Bilirubin 0.9 AST 17 ALT 6 L D Alkaline Phosphatase 95 Troponin I 0.02 C-Reactive Protein 18.9 H Total Protein 6.2 L Albumin 3.6 D Globulin 2.6 Albumin/Globulin Ratio 1.4 Procalcitonin 0.098 Chlamy pneumoniae PCR Not detected Adenovirus (PCR) Not detected B. pertussis DNA (PCR) Not detected Coronavirus OC43 (PCR) Not detected Coronavirus HKU1 (PCR) Not detected Coronavirus 229E (PCR) Not detected SARS-CoV-2 (PCR) Not detected Coronavirus NL63 (PCR) Not detected Human Metapneumovir PCR Not detected Influenza A (H1) PCR Not detected Influ A (H1N1/09) PCR Not detected Influenza A (H3) PCR Not detected Influenza Type A (PCR) Not detected Influenza Type B (PCR) Not detected M. pneumoniae (PCR) Not detected Parainfluenza 1 (PCR) Not detected Parainfluenza 2 (PCR) Not detected Parainfluenza 3 (PCR) Not detected Parainfluenza 4 (PCR) Not detected RSV (PCR) Not detected Entero/Rhino (PCR) Not detected DS: Diagnosis Discharge Diagnosis (1) Acute on chronic heart failure with preserved ejection fraction (HFpEF): Status: Acute Code(s): I50.33 - Acute on chronic diastolic (congestive) heart failure (2) Pneumonia: Status: Acute Code(s): J18.9 - Pneumonia, unspecified organism Qualifiers: Laterality: bilateral Lung location: lower lobe of lung Pneumonia type: due to unspecified organism Qualified Code(s): J18.9 - Pneumonia, unspecified organism (3) Acute and chronic respiratory failure with hypoxia: Status: Acute Code(s): J96.21 - Acute and chronic respiratory failure with hypoxia Meds Home Medications and Allergies Home Medications ?Medication ?Instructions ?Recorded ?Confirmed ?Type buprenorphine 8 mg-naloxone 2 mg 2 tab sublingual CHAITANYA Y addiction 06/21/18 12/29/24 History sublingual tablet ergocalciferol (vitamin D2) 1,250 1,250 mcg PO WEEKLY #9 caps 10/31/23 12/29/24 Rx mcg (50,000 unit) capsule umeclidinium 62.5 mcg-vilanterol 1 inh inhalation CHAITANYA Y 90 days 02/18/24 12/29/24 Rx 25 mcg/actuation powdr for #180 ea inhalation (Anoro Ellipta) ipratropium 20 mcg-albuterol 100 2 puff inhalation BID 11/17/24 12/29/24 History mcg/actuation mist for inhalation (Combivent Respimat) levothyroxine 25 mcg tablet 25 mcg PO DAILY 11/17/24 0 12/30/24 History omeprazole 20 mg capsule,delayed 20 mg PO DAILY 12/29/24 History release venlafaxine 150 mg 150 mg PO DAILY 11/17/24 History capsule,extended release 24 hr venlafaxine 75 mg capsule,extended 75 mg PO DAILY 11/0712/30/24 History release 24 hr aspirin 81 mg tablet,delayed 81 mg PO DAILY 30 days #3 0 tabs 11/18/24 12/29/24 Rx release empagliflozin 10 mg tablet 10 mg PO DAILY 30 days #30 tabs 11/18/24 12/29/24 Rx (Jardiance) finerenone 10 mg tablet (Kerendia) 10 mg PO DAILY 30 d ays #30 tabs 11/18/24 12/29/24 Rx meclizine 25 mg tablet 25 mg PO TID PRN dizziness 2 0 days 12/15/24 12/29/24 Rx #60 tabs atorvastatin 40 mg tablet 40 mg PO HS 30 days #30 tabs 12/30/24 Rx furosemide 40 mg tablet (Lasix) 40 mg PO DAILY 30 days #30 tabs 12/30/24 Rx gabapentin 300 mg capsule 300 mg PO HS 30 days #30 cap s 12/30/24 Rx levofloxacin 750 mg tablet 750 mg PO DAILY 5 days #5 t abs 12/30/24 Rx New Prescriptions to Start Prescriptions: brian Christopher,Óscar furosemide [Lasix] Ashwin,Óscar gabapentin Ashwin,Óscar levofloxacin Ashwin,Óscar Allergies Allergy/AdvReac Type Severity Reaction Status Date / Time cephalexin (From Keflex) Allergy Verified 12/25/24 10:58 ciprofloxacin (From Cipro) Allergy Verified 12/25/24 10:58 tramadol Allergy Verified 12/25/24 10:58 Discharge Plan Disposition Patient Disposition: Home, Self-Care Condition: Fair Discharge Order Discharge Orders: Discharge Order (Routine); Ordered 12/30/24 Ordered By: Óscar Christopher Follow up Plan Follow up with: Esperanza Painter APRN [Nurse Practitioner, Cardiology] - 01/06/25 10:30 am Kae Bhatt DPM [Staff Physician, Podiatry] - 01/15/25 11:30 am Prescriptions/Medication Reconciliation: New atorvastatin 40 mg Tablet 40 mg PO HS 30 Days Qty: 30 0RF levofloxacin 750 mg tablet 750 mg PO DAILY 5 Days Qty: 5 0RF gabapentin 300 mg Capsule 300 mg PO HS 30 Days Qty: 30 0RF Continued Anoro Ellipta 62.5-25 mcg/actuation blister with device 1 inh inhalation DAILY 90 Days Qty: 180 2RF ergocalciferol (vitamin D2) 1,250 mcg (50,000 unit) capsule 1,250 mcg PO WEEKLY Qty: 9 3RF buprenorphine-naloxone 8 MG-2 tablet, sublingual 2 tab SL DAILY Patient Comments: pt takes one in the morning and then one after lunch. [id number] Rx Instructions: SUBOXONE 8/2 MG, TAKE 2 TABLETS DAILY [facility] Combivent Respimat 20-100 mcg/actuation mist 2 puff inhalation BID Rx Instructions: INHALE 2 PUFFS BY MOUTH 2 TIMES A DAY FOR BREATHING PROBLEMS omeprazole 20 mg capsule,delayed release(DR/EC) 20 mg PO DAILY levothyroxine 25 mcg tablet 25 mcg PO DAILY Rx Instructions: TAKE ONE TABLET BY MOUTH ONCE A DAY venlafaxine 75 mg capsule,extended release 24hr 75 mg PO DAILY Rx Instructions: TAKE ONE CAPSULE BY MOUTH ONCE A DAY WITH 150MG CAPSULE venlafaxine 150 mg capsule,extended release 24hr 150 mg PO DAILY Rx Instructions: TAKE ONE CAPSULE BY MOUTH WITH FOOD ONCE A DAY WITH 75 MG CAPSULE Jardiance 10 mg Tablet 10 mg PO DAILY 30 Days Qty: 30 0RF Kerendia 10 mg tablet 10 mg PO DAILY 30 Days Qty: 30 0RF aspirin 81 MG tablet,delayed release (DR/EC) 81 mg PO DAILY 30 Days Qty: 30 0RF meclizine 25 mg tablet 25 mg PO TID PRN (Reason: dizziness) 20 Days Qty: 60 0RF furosemide [Lasix] 40 mg tablet 40 mg PO DAILY 30 Days Qty: 30 0RF Problem Reconciliation Problems Reviewed?: Yes Patient Discharge Instructions Patient Instructions: DI for Heart Failure, DI for Pneumonia -- Adult, Stop Light Pneumonia, Stop Light Heart Failure, Stop Light Infection Print Language: Kenyan Providers Primary Care Provider: Binu Alanis Admit Provider: Óscar Christopher Attending Provider: Óscar Christopher
--- NOTE | 2024-12-30 15:05 | PC.NURSE ---
PATIENT'S AMBULATING RA SAT 91%.
--- NOTE | 2024-12-31 13:21 | SW/DCPLANNER ---
Spoke with patient on the phone. Patient stated that he is doing good. Patient stated that he is aware of his upcoming appointments. Patient stated that his new medicine was brought to his bedside before he was discharged. Patient stated that he has no concerns or questions at this time. Bruno Black
== END 2024-12-30 16:10 | disposition home or self-care (01) | DRG 166 ==
LOC: ER 13:00 → 2ND 15:44
PROVIDERS: Internal Medicine Adolescent Medicine; Admitting Provider Student in an Organized Health Care Education/Training Program; Emergency Provider Student in an Organized Health Care Education/Training Program; PCP Nurse Practitioner Family; Visit Provider Student in an Organized Health Care Education/Training Program
DX: J18.9 Pneumonia, unspecified organism (principal); I50.33 Acute on chronic diastolic (congestive) heart failure; J96.21 Acute and chronic respiratory failure with hypoxia; L97.518 Non-pressure chronic ulcer of other part of right foot with other specified severity; J44.0 Chronic obstructive pulmonary disease with (acute) lower respiratory infection; L97.528 Non-pressure chronic ulcer of other part of left foot with other specified severity; I11.0 Hypertensive heart disease with heart failure; D53.9 Nutritional anemia, unspecified; F11.11 Opioid abuse, in remission; E03.9 Hypothyroidism, unspecified; F41.9 Anxiety disorder, unspecified; F32.A Depression, unspecified; I25.10 Atherosclerotic heart disease of native coronary artery without angina pectoris; F17.210 Nicotine dependence, cigarettes, uncomplicated; I73.9 Peripheral vascular disease, unspecified; S91.001A Unspecified open wound, right ankle, initial encounter; S91.302A Unspecified open wound, left foot, initial encounter; L60.3 Nail dystrophy; L57.0 Actinic keratosis; M20.41 Other hammer toe(s) (acquired), right foot; M20.42 Other hammer toe(s) (acquired), left foot; I87.2 Venous insufficiency (chronic) (peripheral); B35.1 Tinea unguium; Z95.5 Presence of coronary angioplasty implant and graft; Z79.82 Long term (current) use of aspirin; Z79.890 Hormone replacement therapy; Z79.899 Other long term (current) drug therapy; Z88.1 Allergy status to other antibiotic agents; Z88.5 Allergy status to narcotic agent; Z99.81 Dependence on supplemental oxygen
CPT/HCPCS: 0223U; 36415; 71045; 71275; 80053; 82803; 83605; 83735; 83880; 84145; 84484; 85025; 85651; 86140; 87070; 87205; 87636; 89220; 93005; 93308; 94640; 94761; 99285; J0574; J1650; J1938; J1956; J3420; Q9967

== ENCOUNTER 2025-01-06 12:07 | Outpatient (CLI) | payer MEDICARE, SELFPAY ==
--- OUTSIDE RECORDS SUMMARY | 2025-01-06 12:10 | XMS_ITS | Clinical Summary ---
Author Organization [facility] Address [address] [place] [address] Care Team Providers Care Cotton Candy Maker Name Role Phone Janell Cheung APRN Primary Care Provider [phone] Allergies Active Allergy Reactions Criticality Noted Date [...] to complete this topic Insurance Care Teams Cotton Candy Maker Relationship Specialty Start Date End Date Janell Cheung APRN [address] [place] [address] PCP - General Family Medicine 03/13/16
[2025-01-06 12:47] LABS: Hematocrit 27.8 % (42.0-52.0); Hemoglobin 8.7 g/dL (14.1-18.0); Immature Granulocytes % 0.5 %; Mean Corpuscular HGB Conc 31.3 g/dL (31.8-35.4); Mean Corpuscular Hemoglobin 31.2 pg (27.0-31.2); Mean Corpuscular Volume 99.6 fl (80-94); Nucleated Red Blood Cells % 0 %; Platelet Count 204 K/mm3 (142-424); Red Blood Count 2.79 M/mm3 (4.60-6.20); Red Cell Distribution Width-SD 54.2 fL; White Blood Count 5.8 K/mm3 (4.8-10.8)
[2025-01-06 13:17] LABS: Anion Gap 10.4 mEq/L (5-15); Blood Urea Nitrogen 14 mg/dl (9-20); Calcium 8.2 mg/dl (8.4-10.2); Carbon Dioxide 31 mmol/L (22.0-30.0); Chloride 97 mmol/L (98-107); Creatinine,Serum 0.80 mg/dl (0.66-1.25); Estimated Glomerular Filt Rate 104 ml/min (>60); GFR (African American) 125 ML/MIN (>60); Glucose 102 mg/dl (74-100); Potassium 4.4 mmoL/L (3.5-5.1); Sodium 134 mmol/L (136-145)
[2025-01-06 14:07] LABS: Vitamin B12 479 pg/mL (239-931)
[2025-01-06 14:37] LABS: Folate 3.44 ng/mL
== END 2025-01-06 23:59 | disposition home or self-care (01) ==
LOC: LAB 12:09
PROVIDERS: Internal Medicine Medical Oncology; PCP Nurse Practitioner Family; Visit Provider Nurse Practitioner
DX: I25.10 Atherosclerotic heart disease of native coronary artery without angina pectoris (principal); D64.9 Anemia, unspecified
CPT/HCPCS: 36415; 80048; 82607; 82746; 85025

== ENCOUNTER 2025-01-15 11:08 | Outpatient (CLI) | payer MEDICARE, SELFPAY ==
--- NOTE | 2025-01-15 11:16 | XR_ITS ---
FINAL REPORT CLINICAL HISTORY: Follow up CXR - pneumonia COMPARISON: 12/29/2024 FINDINGS: The heart is normal in size. The mediastinum is unremarkable. Diffuse interstitial changes are probably chronic. The lungs are otherwise clear. There is no pneumothorax. Osseous structures unremarkable. IMPRESSION: No acute cardiopulmonary process. Continued followup recommended. Reviewed, Interpreted and Dictated by Fuad Rivera MD Transcribed by Joaquina Aviles Authenticated and . [facility]
== END 2025-01-15 23:59 | disposition home or self-care (01) ==
LOC: RAD 11:10
PROVIDERS: PCP Nurse Practitioner Family; Visit Provider Student in an Organized Health Care Education/Training Program
DX: R05.9 Cough, unspecified (principal)
CPT/HCPCS: 71046

== ENCOUNTER 2025-01-25 12:27 | Outpatient (CLI) | payer MEDICARE, SELFPAY ==
[2025-01-25 21:36] LABS: Coronavirus 19, PCR Not Detected (NotDetected); Influenza A, PCR Not Detected (NotDetected); Influenza B, PCR Not Detected (NotDetected)
== END 2025-01-25 23:59 | disposition home or self-care (01) ==
LOC: LAB.DROPOF 01-26 14:02
PROVIDERS: PCP Student in an Organized Health Care Education/Training Program; Visit Provider Student in an Organized Health Care Education/Training Program
DX: J02.9 Acute pharyngitis, unspecified (principal); R52 Pain, unspecified
CPT/HCPCS: 87070; 87636

== ENCOUNTER 2025-02-15 19:56 | Emergency (ER) | payer MEDICARE, SELFPAY ==
[2025-02-15 20:04] VITALS: BP 133/67; PULSE 66; RESP 18; TEMP 37.3; O2SAT 99; BMI 30.7
[2025-02-15 20:08] VITALS: BP 133/67; PULSE 66; RESP 20; TEMP 37.3; O2SAT 99
--- NOTE | 2025-02-15 20:08 | XR_ITS ---
PROCEDURE INFORMATION: Exam: XR Chest Exam date and time: 02/15/2025 8:30 PM Age: 49 years old Clinical indication: Fever TECHNIQUE: Imaging protocol: Radiologic exam of the chest. Views: 2 views. COMPARISON: CR XR CHEST 2V 01/15/2025 11:19 AM FINDINGS: Lungs: Left basilar airspace opacities favoring pneumonia in the setting of infection. Pleural spaces: Unremarkable. No pleural effusion. No pneumothorax. Heart/Mediastinum: Unremarkable. No cardiomegaly. Bones/joints: Unremarkable. IMPRESSION: Left basilar airspace opacities favoring pneumonia in the setting of infection. Recommend continued follow-up imaging to document resolution after treatment.
--- OUTSIDE RECORDS SUMMARY | 2025-02-15 20:09 | XMS_ITS | Clinical Summary ---
Author Organization [facility] Address [address] [place] [address] Care Team Providers Care Tobacco Stripper Name Role Phone Janell Cheung APRN Primary Care Provider [phone] Allergies Active Allergy Reactions Criticality Noted Date [...] to complete this topic Insurance Care Teams Tobacco Stripper Relationship Specialty Start Date End Date Janell Cheung APRN [address] [place] [address] PCP - General Family Medicine 03/13/16
--- OUTSIDE RECORDS SUMMARY | 2025-02-15 20:09 | XMS_ITS | Patient Health Record ---
Author Organization [facility] Billing Info Address [address] [place] [id number] Support Name Relationship Address Phone guy barrera Emergency Contact Unknown Fili Barrera Guarantor Unknown [phone] Reason For Referral No Information Medications Medication SIG (Take, Route, Frequency, Duration) Notes Start Date End Date Status Clopidogrel Bisulfate 75 MG 1 tablet Ora lly Once a day for 90 days 05/06/2018 Active Plan Of Treatment No Information Insurance Providers Payer Name Payer Address Payer Phone Subscriber Number Group Number Insured Name Patient Relationship to Insured Coverage Start Date Coverage End Date [employer] PPO [address] [place], [place] [id number] Fili Barrera Self - patient is the insured 7
--- NOTE | 2025-02-15 20:10 | HMH.EDGENADL ---
Discharge Plan Disposition Patient Disposition: Home, Self-Care Condition: Good Prescriptions Prescriptions: New amoxicillin-pot clavulanate 875-125 mg tablet 1 tab PO BID Qty: 20 0RF azithromycin 500 mg tablet 500 mg PO DAILY 2 Days Qty: 2 0RF Rx Instructions: start on day 2 of therapy No Action clotrimazole 10 mg henrietta 10 mg mucous membrane 5XD 10 Days Qty: 50 0RF Anoro Ellipta 62.5-25 mcg/actuation blister with device 1 inh inhalation DAILY 90 Days Qty: 180 2RF prednisone 20 mg tablet 20 mg PO BID 5 Days Qty: 10 0RF ergocalciferol (vitamin D2) 1,250 mcg (50,000 unit) capsule 1,250 mcg PO WEEKLY Qty: 9 3RF promethazine 25 mg tablet See Rx Instructions .ROUTE .COMPLEX Qty: 90 0RF Dose Instruction: TAKE 1 TABLET BY MOUTH EVERY 8 HOURS NEEDED FOR nausea AND vomiting Rx Instructions: TAKE 1 TABLET BY MOUTH EVERY 8 HOURS NEEDED FOR nausea AND vomiting amoxicillin-pot clavulanate 875-125 mg tablet 1 tab PO BID 10 Days Qty: 20 0RF buprenorphine-naloxone 8 MG-2 tablet, sublingual 2 tab SL DAILY Patient Comments: pt takes one in the morning and then one after lunch. 11/17/81025@0122 Rx Instructions: SUBOXONE 8/2 MG, TAKE 2 TABLETS DAILY PER MEENA @ [facility] Combivent Respimat 20-100 mcg/actuation mist 2 puff inhalation BID Rx Instructions: INHALE 2 PUFFS BY MOUTH 2 TIMES A DAY FOR BREATHING PROBLEMS omeprazole 20 mg capsule,delayed release(DR/EC) 20 mg PO DAILY levothyroxine 25 mcg tablet 25 mcg PO DAILY Rx Instructions: TAKE ONE TABLET BY MOUTH ONCE A DAY venlafaxine 75 mg capsule,extended release 24hr 75 mg PO DAILY Rx Instructions: TAKE ONE CAPSULE BY MOUTH ONCE A DAY WITH 150MG CAPSULE venlafaxine 150 mg capsule,extended release 24hr 150 mg PO DAILY Rx Instructions: TAKE ONE CAPSULE BY MOUTH WITH FOOD ONCE A DAY WITH 75 MG CAPSULE Jardiance 10 mg Tablet 10 mg PO DAILY 30 Days Qty: 30 0RF Kerendia 10 mg tablet 10 mg PO DAILY 30 Days Qty: 30 0RF aspirin 81 MG tablet,delayed release (DR/EC) 81 mg PO DAILY 30 Days Qty: 30 0RF meclizine 25 mg tablet 25 mg PO TID PRN (Reason: dizziness) 20 Days Qty: 60 0RF atorvastatin 40 mg Tablet 40 mg PO HS 30 Days Qty: 30 0RF furosemide [Lasix] 40 mg tablet 40 mg PO DAILY 30 Days Qty: 30 0RF gabapentin 300 mg Capsule 300 mg PO HS 30 Days Qty: 30 0RF Referrals Follow up/Referrals: Binu Alanis APRN [Primary Care Provider, Family Practice] - See instructions Activity Restrictions/Add. Instructions Additional Instructions/Restrictions: You were evaluated in the emergency department today. At this time, your x-ray is concerning for pneumonia. Please follow-up very closely with your primary care provider for reassessment. supervisor instant potato processing your prescriptions at the pharmacy and take them as prescribed. Take Tylenol and ibuprofen as needed for pain/fever. Return to the emergency department for new or worsening symptoms. Clinical Impressions Clinical Impression: Pneumonia Instructions Patient Instructions: Pneumonia in Adults, DI for Fever (Symptom) in Adults Print Language Print Language: Greenlandic Discharge ED Provider: Luz Rush General Adult HPI General Chief complaint: Fever Stated complaint: fever,sleeping alot Time Seen by Provider: 02/15/25 20:01 Mode of Arrival: Ambulatory Source of Information: Patient Description of Symptoms (Recalled from ER Triage Doc. by RN): PT presents to the ED for evaluation of fever. PT stated he awoke with a fever of 102.6 and took 3 ibuprofens. Stated he has a cough and slight drainage. History of Present Illness HPI narrative: This patient is a 49-year-old male with a history of CHF, COPD, foot wounds managed by podiatry, CAD, hypertension hyperlipidemia, hypertensive heart disease, and prior admission in December with concern for pneumonia presenting to the emergency department for evaluation with concern for fever. Patient states that he has been feeling his usual normal self all weekend, laying around like usual. He states that he woke up from a nap this evening feeling very cold, and he took his temperature and it was 102.6 ?F. He notes he took 3 ibuprofen prior to arrival. He denies any other concerns or complaints to me, stating he has not had any significant sore throat, cough, congestion, abdominal pain, vomiting, changes to bowel movements. He does note chronically that he has diarrhea and also has some chronic nausea, for which he takes Phenergan at home. Related Data Home Medications ?Medication ?Instructions ?Recorded ?Confirmed buprenorphine 8 mg-naloxone 2 mg 2 tab sublingual DAILY addiction 06/21/18 01/27/25 sublingual tablet ipratropium 20 mcg-albuterol 100 2 puff inhalation BID 11/17/24 01/27/25 mcg/actuation mist for inhalation (Combivent Respimat) levothyroxine 25 mcg tablet 25 mcg PO DAILY 11/17/24 01/27/25 omeprazole 20 mg capsule,delayed 20 mg PO DAILY 11/17/24 01/27/25 release venlafaxine 150 mg 150 mg PO DAILY 11/17/24 01/27/25 capsule,extended release 24 hr venlafaxine 75 mg capsule,extended 75 mg PO DAILY 11/17/24 01/27/25 release 24 hr Previous Rx's ?Medication ?Instructions ?Recorded ergocalciferol (vitamin D2) 1,250 1,250 mcg PO WEEKLY #9 caps 10/31/23 mcg (50,000 unit) capsule umeclidinium 62.5 mcg-vilanterol 1 inh inhalation DAILY 90 days 02/18/24 25 mcg/actuation powdr for #180 ea inhalation (Anoro Ellipta) aspirin 81 mg tablet,delayed 81 mg PO DAILY 30 days #30 tabs 11/18/24 release empagliflozin 10 mg tablet 10 mg PO DAILY 30 days #30 tabs 11/18/24 (Jardiance) finerenone 10 mg tablet (Kerendia) 10 mg PO DAILY 30 days #30 tabs 11/18/24 meclizine 25 mg tablet 25 mg PO TID PRN dizziness 20 days 12/15/24 #60 tabs atorvastatin 40 mg tablet 40 mg PO HS 30 days #30 tabs 12/30/24 furosemide 40 mg tablet (Lasix) 40 mg PO DAILY 30 days #30 tabs 12/30/24 gabapentin 300 mg capsule 300 mg PO HS 30 days #30 caps 12/30/24 prednisone 20 mg tablet 20 mg PO BID 5 days #10 tabs 01/21/25 promethazine 25 mg tablet See Rx Instructions .Route 01/22/25 .COMPLEX #90 tabs clotrimazole 10 mg henrietta 10 mg mucous membrane 5XD 10 days 01/25/25 #50 tabs amoxicillin 875 mg-potassium 1 tab PO BID 10 days #20 tabs 01/30/25 clavulanate 125 mg tablet amoxicillin 875 mg-potassium 1 tab PO BID #20 tabs 02/15/25 clavulanate 125 mg tablet azithromycin 500 mg tablet 500 mg PO DAILY 2 days #2 tabs 02/15/25 Allergies Allergy/AdvReac Type Severity Reaction Status Date / Time cephalexin (From Keflex) Allergy Unknown Verified 01/27/25 10:15 allergy reaction ciprofloxacin (From Cipro) Allergy Unknown Verified 01/27/25 10:15 allergy reaction tramadol Allergy Unknown Verified 01/27/25 10:15 allergy reaction PFSH PFS Disclaimer: The information contained in this section may have been updated after the patient was seen, as this information can be updated by other users. Medical History Vertigo Acute and chronic respiratory failure with hypoxia Peripheral vascular disease of foot Mixed hyperlipidemia COPD mixed type Hypothyroidism Hyperparathyroidism History of hypokalemia Tobacco abuse disorder Tobacco abuse counseling Hilar lymphadenopathy Mediastinal lymphadenopathy Screening for lung cancer COPD (chronic obstructive pulmonary disease) Smoking greater than 30 pack years Dyspnea on exertion MRSA (methicillin resistant Staphylococcus aureus) Arthritis CHF (congestive heart failure) PVD (peripheral vascular disease) PAD (peripheral artery disease) Myocardial infarction Hyperlipidemia Hypertension CAD (coronary artery disease) Atherosclerosis History of anemia Edema of both lower extremities 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 Insomnia Edema Surgical History Hx of neck surgery History of back surgery History of esophagogastroduodenoscopy (EGD) History of coronary artery stent placement Hx of cholecystectomy History of cardiac cath History of appendectomy History of colonoscopy Family History Father Cancer Mother Cancer Other Alcoholism Coronary artery disease Diabetes Heart attack Hyperlipidemia Hypertension Kidney disease Social History Smoking Status: Current every day smoker tobacco type: cigarettes packs per day: 1 alcohol intake: former year quit: soci substance use type: former substance user and painkillers current occupational status: disabled Travel in the last 8 weeks?: None adopted: No caregiver/support person: No foster care: No household members: family housing: house lives independently: Yes marital status: education level: high school current occupational exposures/hazards: No caffeine: Yes special bety needs: No agree to transfusion: No do you feel safe at home: Yes victim of physical abuse: No victim of emotional abuse: No victim of sexual abuse: No would you like helpful sources: No Have you lived/traveled outside [place] in past 30 days?: No Contact w/someone who lives/traveled outside US past 30 days?: No Exposure to someone with infectious disease in past 14 days?: No Do you have a fever (greater than 100.4 F or 38 C)?: Yes Have you tested positive for COVID-19?: No Exposed to someone with COVID-19 in past 14 days?: No Do you have a sore throat?: No Do you have a cough?: No Do you have any weakness?: No Do you have any diarrhea?: No Are you experiencing any unusual bleeding?: No Do you have any muscle aches/pain?: No Do you have any abdominal pain?: No Are you experiencing loss of taste or smell?: No Other Medical History Have you received the Flu Vaccine for this season: No Have you received the Pneumonia Vaccine: No ROS Obtained: Yes All systems reviewed & no additional complaints except as documented Physical Exam General General appearance: alert and in no apparent distress Head Head exam: atraumatic and normocephalic Eye Eye exam: Present normal appearance, PERRL and EOMI ENT ENT exam: Present normal exam and normal oropharynx Neck Neck exam: Present normal inspection and full ROM Chest Chest inspection: Present normal inspection and symmetric chest wall rise Respiratory Respiratory exam: Present normal lung sounds bilaterally and respiratory distress Cardiovascular Cardiovascular exam: Present regular rate and normal rhythm Abdominal Exam Abdominal exam: Present soft; Absent distention, tenderness or guarding Extremities Exam Extremities exam: Present normal inspection and full ROM; Absent tenderness Back Exam Back exam: Present normal inspection Neurological Exam Neurological exam: Present alert, oriented X3 and CN II-XII intact Psychiatric Psychiatric exam: Present normal affect and normal mood Skin Skin exam: Present warm and dry Medical Decision Making Medical Records Screening: Per USPSTF and CDC recommendations, given the prevalence of disease in our region, it is our hospital?s policy to screen for HIV and viral Hepatitis for all patients aged 18 and over and those with ongoing risk factors. Juan C Inquiry Pt receiving controlled substance: No Vital Signs: 02/15/25 20:04 02/15/25 20:08 02/15/25 21:22 Temperature 99.1 F 99.1 F Temperature Source Oral Oral Pulse Rate 66 Pulse Rate [Right] 66 Respiratory Rate 18 20 Blood Pressure 133/67 Blood Pressure [Right Arm] 133/67 Blood Pressure Mean [Right Arm] 89 02 Sat by Pulse Oximetry 99 99 100 Oxygen Delivery Method Room Air Room Air Nasal Cannula Oxygen Flow Rate (LPM) 2 02/15/25 22:15 Temperature 98.9 F Temperature Source Pulse Rate 78 Pulse Rate [Right] Respiratory Rate 18 Blood Pressure 111/64 Blood Pressure [Right Arm] Blood Pressure Mean [Right Arm] 02 Sat by Pulse Oximetry Oxygen Delivery Method Room Air Oxygen Flow Rate (LPM) Lab Data Lab Results 02/15/25 20:35: WBC 4.3 L, RBC 2.74 L, Hgb 8.3 L, Hct 26.2 L, MCV 95.6 H, MCH 30.3, MCHC 31.7 L, RDW 15.2, Plt Count 158, MPV 8.5, Neut % (Auto) 83.4 H, Lymph % (Auto) 10.5, Trinity % (Auto) 4.7, Eos % (Auto) 0.5, Baso % (Auto) 0.7, Neut # (Auto) 3.6, Lymph # (Auto) 0.5 L, Trinity # (Auto) 0.2, Eos # (Auto) 0.0, Baso # (Auto) 0.0, Total Counted 100, Neutrophils % (Manual) 87 H, Lymphocytes % (Manual) 8 L, Monocytes % (Manual) 4, Basophils % (Manual) 1.0, Platelet Estimate Normal, RBC Morphology Normal, Sodium 133 L, Potassium 3.7, Chloride 96 L, Carbon Dioxide 31 H, Anion Gap 9.7, BUN 12, Creatinine 0.90, Estimated Creat Clear 135, Estimated GFR 90, Est GFR ( Amer) 109, Glucose 158 H, Calcium 8.3 L, Total Bilirubin 1.0, AST 19, ALT 11 L, Alkaline Phosphatase 108, Total Protein 6.5, Albumin 4.0, Globulin 2.5, Albumin/Globulin Ratio 1.6, Lipase 14 L, HCV Ab INGE w/Rflx PCR Qn Negative 02/15/25 20:39: SARS-CoV-2 (PCR) Not detected, Influenza A Untype (PCR) Not detected, Influenza Type B (PCR) Not detected 02/15/25 21:21: Lactate 1.0, HIV Ag/Ab Combo Qual Negative 02/15/25 20:35 02/15/25 20:35 Orders (Tests/Meds): ED MEDICATIONS Discontinued Medications Generic Name Dose Route Start Last Admin Trade Name Zeynep PRN Reason Stop Dose Admin Amoxicillin/Clavulanate Potassium 1 each 02/15/25 22:05 02/15/25 22:18 Amoxicillin/Clavulanate Potassium 875/125mg Tablet PO 02/15/25 22:06 1 each ONCE ONE Administration Azithromycin 500 mg 02/15/25 22:05 02/15/25 22:18 Azithromycin 250mg Tablet PO 02/15/25 22:06 500 mg ONCE ONE Administration ORDERS Category Date Time Status CXR 2 view (NOT portable) [XR chest 2V] Stat Exams 02/15/25 20:08 Completed CBC w/Auto Diff [Complete Blood Count Auto Diff] Stat Lab 02/15/25 20:35 Completed CMP [Comprehensive Metabolic Panel] Stat Lab 02/15/25 20:35 Completed HIV Combo Stat Lab 02/15/25 21:21 Completed Hepatitis B Surf Ab Quant Stat Lab 02/15/25 20:35 Received Hepatitis B surface antigen screen [HBsAg Screen] Stat Lab 02/15/25 20:35 Received Hepatitis C Ab Qual. W/ RFX Stat Lab 02/15/25 20:35 Completed Lactic Acid Stat Lab 02/15/25 21:21 Completed Lipase Stat Lab 02/15/25 20:35 Completed Rapid PCR Covid and Flu A/B Stat Lab 02/15/25 20:39 Completed Blood Culture Stat Micro 02/15/25 20:09 Received Medical Decision Narrative: In summary, this patient is a 49-year-old male presenting to the Emergency Department for evaluation of fever. Differential diagnoses considered include but are not limited to fever, viral syndrome, pneumonia, UTI, gastroenteritis. Ruling out the most morbid conditions drove assessment. It should be noted patient's history includes CHF, COPD, foot wounds, depression, anxiety, tobacco use, hypertension, hypertensive heart disease which may or may not be at goal therapy. This complicates all aspects of care by increasing patient's risk for morbidity. I reviewed patient's past medical records and noted evaluations by podiatry for his foot wounds as well as prior evaluations by cardiology for maintenance of health. Also noted prior admission back in December for pneumonia. On exam, the patient is sitting upright in no distress. He took ibuprofen prior to arrival, but currently he is not having any fever. He is nontachycardic, nontachypneic with reassuring vitals. Workup included CBC, CBC, lipase, lactic acid, urinalysis, chest x-ray, blood cultures, viral swab. On reassessment, the patient is lying in bed comfortably in no distress. Labs obtained demonstrated chronic leukopenia, chronic anemia, no significant change from prior. Chemistry demonstrates mild hyponatremia, mild hypocalcemia, no significant changes from prior. Patient is not able to urinate but denies any specific urinary symptoms. I independently interpreted chest x-ray prior to radiology read and noted that he has a left lower pneumonia. I feel this is likely the etiology of his fever. I considered admission, as his O2 saturation has been 91 to 92% on room air. Nursing did briefly put him on some mental oxygen because he dipped down to 90% while awake. He states that he does not want to be admitted and wants to go home and is not feeling short of air. Given this, I will discharge him after offering admission. He will be discharged with prescriptions for Augmentin and azithromycin. He states he has an appointment tomorrow to see a doctor and will keep this appointment. Strict return precautions were given at time of discharge Critical Care Critical Care Time Critical Care Time: No
[2025-02-15 20:42] LABS: Hematocrit 26.2 % (42.0-52.0); Hemoglobin 8.3 g/dL (14.1-18.0); Immature Granulocytes % 0.2 %; Mean Corpuscular HGB Conc 31.7 g/dL (31.8-35.4); Mean Corpuscular Hemoglobin 30.3 pg (27.0-31.2); Mean Corpuscular Volume 95.6 fl (80-94); Nucleated Red Blood Cells % 0 %; Platelet Count 158 K/mm3 (142-424); Red Blood Count 2.74 M/mm3 (4.60-6.20); Red Cell Distribution Width-SD 51.7 fL; White Blood Count 4.3 K/mm3 (4.8-10.8)
[2025-02-15 20:44] LABS: Coronavirus 19, PCR Not Detected (NotDetected); Influenza A, PCR Not Detected (NotDetected); Influenza B, PCR Not Detected (NotDetected)
[2025-02-15 20:49] LABS: Chloride 96 mmol/L (98-107); Potassium 3.7 mmoL/L (3.5-5.1); Sodium 133 mmol/L (136-145)
[2025-02-15 20:52] LABS: Alanine Aminotransferase 11 U/L (12-78); Alkaline Phosphatase 108 U/L (38-126); Aspartate Amino Transferase 19 U/L (17-59); Bilirubin,Total 1.0 mg/dl (0.2-1.3); Blood Urea Nitrogen 12 mg/dl (9-20); Carbon Dioxide 31 mmol/L (22.0-30.0); Creatinine Clearance Estimated 135 mL/min (50-200); Creatinine,Serum 0.90 mg/dl (0.66-1.25); Estimated Glomerular Filt Rate 90 ml/min (>60); GFR (African American) 109 ML/MIN (>60); Lipase 14 U/L (23-300); Total Protein,Serum 6.5 g/dl (6.3-8.2)
[2025-02-15 20:53] LABS: Calcium 8.3 mg/dl (8.4-10.2); Glucose 158 mg/dl (74-100)
[2025-02-15 20:56] LABS: Anion Gap 9.7 mEq/L (5-15)
[2025-02-15 21:05] LABS: Albumin Level 4.0 g/dl (3.5-5.0); Albumin/Globulin Ratio 1.6 (1.1-1.8); Globulin 2.5 g/dL (1.3-3.2)
[2025-02-15 21:22] VITALS: O2SAT 100
[2025-02-15 21:58] LABS: RBC Morphology Normal; Total Cells Counted 100
[2025-02-15 22:15] VITALS: BP 111/64; PULSE 78; RESP 18; TEMP 37.2; O2SAT 96
[2025-02-15] MEDS: AZITHROMYCIN 250MG TABLET 500 MG PO (22:18)
[2025-02-15] MEDS: AMOXICILLIN/CLAVULANATE POTASSIUM 875/125MG TABLET 1 EACH PO (22:18)
[2025-02-15 22:31] LABS: Hepatitis C Ab Qual. W/ RFX NEGATIVE (Negative)
[2025-02-17 10:14] LABS: Hepatitis B Surface Antigen Negative (Negative)
== END 2025-02-15 22:23 | disposition home or self-care (01) ==
PROVIDERS: Emergency Provider Emergency Medicine; PCP Nurse Practitioner Family
DX: J18.9 Pneumonia, unspecified organism (principal); R50.9 Fever, unspecified; J44.0 Chronic obstructive pulmonary disease with (acute) lower respiratory infection; F17.210 Nicotine dependence, cigarettes, uncomplicated
CPT/HCPCS: 71046; 80053; 83605; 83690; 85007; 85025; 86706; 86803; 87040; 87340; 87389; 87636; 99284

== ENCOUNTER 2025-02-15 21:48 | Outpatient (CLI) | payer MEDICARE, SELFPAY ==
--- OUTSIDE RECORDS SUMMARY | 2025-02-15 21:52 | XMS_ITS | Continuity of Care Document ---
Author Organization [facility]. If a dditional information is needed, contact Health Information Management at [phone] Address [address] [place] [address] Phone Care Team Providers Care Wireless Store Manager Name Role Phone Unavailable Unavailable Unavailable Problems [...] a Day Start:07-Aug-2016 Comments:90 MG PO BID Lipitor_LIPI80TA-AOM;80 MG O RAL Daily Start:07-Aug-2016 Comments:80 MG PO DAILY [facility] Aspirin_ASP I-329-AOM;81 MG ORAL Daily Start:07-Aug-2016 Comments:81 MG PO DAILY Ranexa_RANE500T3-AOM;500 MG ORAL Two Times a Day Start:07-Aug-2016 Comments:500 MG PO BID Diovan;160 MG ORAL Daily Start:07-Aug-2016 Comments:160 MG PO DAILY Coreg_CARV6.25-AOM;6.25 MG O RAL , Start:07-Aug-2016 Comments:6.25 MG PO Hydrocodone/Acetaminophen [H ydrocodon-Acetaminophn 10-300] 1;1 ea ORAL As Directed Start:05-Aug-2016 Comments:1 ea PO DIRECTED Effexor XR;150 MG ORAL Daily Start:05-Aug-2016 Comments:150 MG PO DAILY Norvasc_[id number]-AOM;5 MG ORAL Daily Start:05-Aug-2016 Status:Aborted Comments:5 MG PO DAILY Nexium_NEXI20CA-AOM;20 MG OR AL Daily Start:05-Aug-2016 Comments:20 MG PO DAILY Renax;1 TAB ORAL Two Times a Day Start:05-Aug-2016 Status:Aborted Comments:1 TAB PO BID
--- OUTSIDE RECORDS SUMMARY | 2025-02-15 21:53 | XMS_ITS | Clinical Summary ---
Author Organization [facility] Address [address] [place] [address] Care Team Providers Care Underground Mine Machinery Mechanic Name Role Phone Janell Cheung APRN Primary Care Provider [phone] Allergies Active Allergy Reactions Criticality Noted Date [...] patient's age to complete this topic Insurance [id number] [id number] [facility] [employer] Care Teams Underground Mine Machinery Mechanic Relationship Specialty Start Date End Date Janell Cheung APRN [address] [place] [address] PCP - General Family Medicine 03/13/16
== END 2025-02-15 23:59 | disposition home or self-care (01) ==
LOC: LAB 21:51
PROVIDERS: PCP Nurse Practitioner Family; Visit Provider Emergency Medicine
DX: R69 Illness, unspecified (principal)

== ENCOUNTER 2025-03-04 11:28 | Inpatient (IN) | payer MEDICARE, SELFPAY ==
[2025-03-04] VITALS (27 sets, daily range): BP systolic 94–134; BP diastolic 44–74; PULSE 69–99; RESP 9–23; TEMP 36.4–37.2; O2SAT 91–100; BMI 31.0
--- OUTSIDE RECORDS SUMMARY | 2025-03-04 11:45 | XMS_ITS | Clinical Summary ---
Author Organization [facility] Address [address] [place] [address] Care Team Providers Care Chorus Dancer Name Role Phone Janell Cheung APRN Primary Care Provider [phone] Allergies Active Allergy Reactions Criticality Noted Date [...] to complete this topic Insurance Care Teams Chorus Dancer Relationship Specialty Start Date End Date Janell Cheung APRN [address] [place] [address] PCP - General Family Medicine 03/13/16
--- OUTSIDE RECORDS SUMMARY | 2025-03-04 11:45 | XMS_ITS | Patient Health Record ---
Author Organization [facility] Billing Info Address [address] [place] [id number] Support Name Relationship Address Phone guy barrera Emergency Contact Unknown Fili Barrera Guarantor Unknown [phone] Reason For Referral No Information Medications Medication [...] End Date RICKIE CARLSON PPO [address] [place], [place] [id number] Fili Barrera Self - patient is the insured 7
--- NOTE | 2025-03-04 11:49 | ED_ITS ---
Discharge Plan Disposition Patient Disposition: Admitted Condition: Good Clinical Impressions Clinical Impression: Pleural effusion, Pneumonia Discharge ED Provider: Savana Zee General Adult HPI General Chief complaint: Shortness of Breath/Dyspnea Stated complaint: congestion, cough Time Seen by Provider: 03/04/25 11:41 Mode of Arrival: Ambulatory Source of Information: Patient Description of Symptoms (Recalled from ER Triage Doc. by RN): Reports possible pneumonia. States for about 1 week he has had a chest rattle and cough. History of Present Illness HPI narrative: Patient is a 49-year-old gentleman who presented to the emergency department with shortness of breath. Patient states that he had pneumonia in early February and patient states that his symptoms feel similar. Patient states that his symptoms are in the left lung but feels like they are migrating to the right lung. Patient states that he feels like there is something in his lung and causes him to be intermittently short of breath. Patient denies any chest pain. Patient denies any new or worsening lower extremity edema. Patient denies any fevers. Patient denies any other upper respiratory symptoms. Patient denies any abdominal pain nausea vomiting or diarrhea. Patient states that he has not had any associated trauma has not fallen. Patient intermittently takes aspirin but does not take any other blood thinners. Related Data Home Medications ?Medication ?Instructions ?Recorded ?Confirmed buprenorphine 8 mg-naloxone 2 mg 2 tab sublingual CHAITANYA Y addiction 06/21/18 03/04/25 sublingual tablet ipratropium 20 mcg-albuterol 100 2 puff inhalation BID 11/17/24 03/04/25 mcg/actuation mist for inhalation (Combivent Respimat) levothyroxine 25 mcg tablet 25 mcg PO DAILY 11/17/24 1 05/04/24 omeprazole 20 mg capsule,delayed 20 mg PO DAILY 03/04/25 release venlafaxine 150 mg 150 mg PO DAILY 11/17/24 capsule,extended release 24 hr venlafaxine 75 mg capsule,extended 75 mg PO DAILY 11/0703/04/25 release 24 hr promethazine 25 mg tablet 25 mg PO Q8HP PRN Nausea And 03/04/25 03/04/25 Vomiting Previous Rx's ?Medication ?Instructions ?Recorded aspirin 81 mg tablet,delayed 81 mg PO DAILY 30 days #3 0 tabs 11/18/24 release empagliflozin 10 mg tablet 10 mg PO DAILY 30 days #30 tabs 11/18/24 (Jardiance) finerenone 10 mg tablet (Kerendia) 10 mg PO DAILY 30 d ays #30 tabs 11/18/24 atorvastatin 40 mg tablet 40 mg PO HS 30 days #30 tabs 12/30/24 furosemide 40 mg tablet (Lasix) 40 mg PO DAILY 30 days #30 tabs 12/30/24 Allergies Allergy/AdvReac Type Severity Reaction Status Date / Time cephalexin (From Keflex) Allergy Unknown Verified 01/27/25 10:15 allergy reaction ciprofloxacin (From Cipro) Allergy Unknown Verified 01/27/25 10:15 allergy reaction tramadol Allergy Unknown Verified 01/27/25 10:15 allergy reaction PFSH PFSH Disclaimer: The information contained in this section may have been updated after the patient was seen, as this information can be updated by other users. Medical History Vertigo Acute and chronic respiratory failure with hypoxia Peripheral vascular disease of foot Mixed hyperlipidemia COPD mixed type Hypothyroidism Hyperparathyroidism History of hypokalemia Tobacco abuse disorder Tobacco abuse counseling Hilar lymphadenopathy Mediastinal lymphadenopathy Screening for lung cancer COPD (chronic obstructive pulmonary disease) Smoking greater than 30 pack years Dyspnea on exertion MRSA (methicillin resistant Staphylococcus aureus) Arthritis CHF (congestive heart failure) PVD (peripheral vascular disease) PAD (peripheral artery disease) Myocardial infarction Hyperlipidemia Hypertension CAD (coronary artery disease) Atherosclerosis History of anemia Edema of both lower extremities 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 Insomnia Edema Surgical History Hx of neck surgery History of back surgery History of esophagogastroduodenoscopy (EGD) History of coronary artery stent placement Hx of cholecystectomy History of cardiac cath History of appendectomy History of colonoscopy Family History Diabetes Coronary artery disease Alcoholism Hyperlipidemia Kidney disease Heart attack Cancer Father Mother Hypertension Social History Smoking Status: Current every day smoker tobacco type: cigarettes packs per day: 1 alcohol intake: former year quit: soci substance use type: former substance user and painkillers current occupational status: disabled Travel in the last 8 weeks?: None adopted: No caregiver/support person: No foster care: No household members: family housing: house lives independently: Yes marital status: education level: high school current occupational exposures/hazards: No caffeine: Yes special bety needs: No agree to transfusion: No do you feel safe at home: Yes victim of physical abuse: No victim of emotional abuse: No victim of sexual abuse: No would you like helpful sources: No Have you lived/traveled outside [place] in past 30 days?: No Contact w/someone who lives/traveled outside [place] past 30 days?: No Exposure to someone with infectious disease in past 14 days?: No Do you have a fever (greater than 100.4 F or 38 C)?: No Have you tested positive for COVID-19?: No Exposed to someone with COVID-19 in past 14 days?: No Do you have a sore throat?: No Do you have a cough?: Yes Do you have any weakness?: No Do you have any diarrhea?: No Are you experiencing any unusual bleeding?: No Do you have any muscle aches/pain?: No Do you have any abdominal pain?: No Are you experiencing loss of taste or smell?: No Other Medical History Have you received the Flu Vaccine for this season: No Have you received the Pneumonia Vaccine: No ROS Obtained: Yes All systems reviewed & no additional complaints except as documented and Yes Systems reviewed as appropriate & no additional complaints except as documented Physical Exam General General appearance: alert and in no apparent distress Head Head exam: atraumatic, normocephalic and normal inspection Eye Eye exam: Present normal appearance, PERRL and EOMI; Absent scleral icterus ENT ENT exam: Present normal exam and normal external ear exam Neck Neck exam: Present normal inspection and full ROM Chest Chest inspection: Present normal inspection and symmetric chest wall rise Respiratory Respiratory exam: Present normal lung sounds bilaterally (diminished and decreased breath sounds on the left, no wheezing); Absent respiratory distress or wheezes Cardiovascular Cardiovascular exam: Present regular rate, normal rhythm and normal heart sounds Abdominal Exam Abdominal exam: Present soft and distention; Absent tenderness, guarding or rebound Extremities Exam Extremities exam: Present normal inspection and full ROM Back Exam Back exam: Present normal inspection and full ROM Neurological Exam Neurological exam: Present alert and oriented X3 Psychiatric Psychiatric exam: Present normal affect and normal mood Skin Skin exam: Present warm and dry Medical Decision Making Medical Records Medical records reviewed: Yes I reviewed the patient's medical records. Screening: Per USPSTF and CDC recommendations, given the prevalence of disease in our region, it is our hospital?s policy to screen for HIV and viral Hepatitis for all patients aged 18 and over and those with ongoing risk factors. Juan C Inquiry Pt receiving controlled substance: No Vital Signs: 03/04/25 11:36 03/04/25 12:00 03/04/25 12:30 Temperature 99.0 F Temperature Source Oral Pulse Rate 78 87 Pulse Rate [Radial] 99 H Respiratory Rate 18 12 13 Blood Pressure 111/57 L 133/72 Blood Pressure [Right Arm] 134/71 Blood Pressure Mean Blood Pressure Mean [Right Arm] 92 Blood Pressure Source Blood Pressure Source [Right Arm] Automatic Cuff Blood Pressure Position Blood Pressure Position [Right Arm] Sitting 02 Sat by Pulse Oximetry 91 L 92 L 98 Oxygen Delivery Method Room Air Nasal Cannula Oxygen Flow Rate (LPM) 2 03/04/25 13:45 03/04/25 14:30 03/04/25 15:00 Temperature Temperature Source Pulse Rate 83 78 78 Pulse Rate [Radial] Respiratory Rate 12 9 L 9 L Blood Pressure 126/74 117/61 114/70 Blood Pressure [Right Arm] Blood Pressure Mean 89 84 Blood Pressure Mean [Right Arm] Blood Pressure Source Blood Pressure Source [Right Arm] Blood Pressure Position Blood Pressure Position [Right Arm] 02 Sat by Pulse Oximetry 94 L 97 100 Oxygen Delivery Method Nasal Cannula Oxygen Flow Rate (LPM) 2 03/04/25 16:42 Temperature 99.0 F Temperature Source Oral Pulse Rate 78 Pulse Rate [Radial] Respiratory Rate 12 Blood Pressure 117/61 Blood Pressure [Right Arm] Blood Pressure Mean Blood Pressure Mean [Right Arm] Blood Pressure Source Automatic Cuff Blood Pressure Source [Right Arm] Blood Pressure Position Sitting Blood Pressure Position [Right Arm] 02 Sat by Pulse Oximetry Oxygen Delivery Method Nasal Cannula Oxygen Flow Rate (LPM) 2 Lab Data Lab results reviewed: Yes I reviewed the patient's lab results. Lab Results 03/04/25 11:44: WBC 4.7 L, RBC 2.77 L, Hgb 8.0 L, Hct 26.1 L, MCV 94.2 H, MCH 28.9, MCHC 30.7 L, RDW 15.7, Plt Count 167, MPV 8.4, Neut % (Auto) 72.7, Lymph % (Auto) 19.0, [place] % (Auto) 6.5, Eos % (Auto) 0.8, Baso % (Auto) 0.6, Neut # (Auto) 3.4, Lymph # (Auto) 0.9, [place] # (Auto) 0.3, Eos # (Auto) 0.0, Baso # (Auto) 0.0, Sodium 135 L, Potassium 3.7, Chloride 96 L, Carbon Dioxide 30, Anion Gap 12.7, BUN 9, Creatinine 0.80, Estimated Creat Clear 154, Estimated GFR 104, Est GFR ( Amer) 125, Glucose 107 H, Calcium 8.1 L, Total Bilirubin 0.4, AST 17, ALT 11 L, Alkaline Phosphatase 110, Troponin I < 0.01, NT-Pro-B Natriuret Pep 2380 H, Total Protein 6.6, Albumin 3.5, Globulin 3.1, Albumin/Globulin Ratio 1.1 03/04/25 11:48: VBG pH 7.33, VBG pCO2 54.0 H, VBG pO2 36.7, VBG HCO3 28.0, VBG Total CO2 29.6 H, VBG O2 Saturation 69.7, VBG Base Excess 2.1, VBG Lactic Acid 1.9 03/04/25 14:58: Fluid Source Thoracentesis fluid, Fluid Volume 500, Fluid Appearance Bloody, Fluid RBC (Auto) [id number], Fld Tot Nucleated Cell 1839 03/04/25 11:44 03/04/25 11:44 Orders (Tests/Meds): ED MEDICATIONS Generic Name Dose Route Start Last Admin Trade Name Zeynep PRN Reason Stop Dose Admin Acetaminophen 650 mg 03/04/25 13:34 Acetaminophen 325mg Tab PO 04/03/25 13:33 Q4HP PRN Fever or Mild Pain (1-3) Albuterol/Ipratropium 2 puff 03/04/25 18:00 Combivent 20mcg/100mcg Respimat Inhaler IH 04/03/25 17:59 Q6RT [facility] Atorvastatin Calcium 40 mg 03/04/25 21:00 Atorvastatin 40mg Tablet PO 04/03/25 20:59 HS WON Buprenorphine/Naloxone 2 each 03/05/25 09:00 Buprenorphine/Naloxone 8mg/2mg Odt SL 04/04/25 08:59 DAILY WON Empagliflozin 10 mg 03/05/25 09:00 Empagliflozin 10mg Tablet PO 04/04/25 08:59 DAILY WON Ceftriaxone Sodium 2 gm/ 100 mls @ 200 mls/hr 03/04/25 13:15 03/04/25 14:38 Sodium Chloride IV 03/14/25 13:14 Infused Q24H WON Infusion Azithromycin 500 mg/ Sodium 250 mls @ 250 mls/hr 03/04/25 13:15 03/04/25 16:50 Chloride IV 03/14/25 13:14 Infused Q24H WON Infusion Sodium Chloride 250 mls @ 25 mls/hr 03/04/25 15:15 Sod Chlor 0.9% 250ml Bag IV 03/05/25 15:14 .Q10H WON Levothyroxine Sodium 25 mcg 03/05/25 07:00 Levothyroxine 25mcg (0.025mg) Tab PO 04/04/25 06:59 DAILYDM WON Nicotine 21 mg 03/04/25 13:39 Nicotine 21mg/24hr Patch TD 04/03/25 13:38 DAILYP PRN Nicotine Cravings Non-Formulary Medication 10 mg 03/05/25 09:00 Finerenone [Kerendia] PO 04/04/25 08:59 DAILY WON Pantoprazole Sodium 40 mg 03/04/25 21:00 Pantoprazole 40mg Tablet PO 04/03/25 20:59 HS WON Venlafaxine HCl 225 mg 03/05/25 09:00 Venlafaxine Xr 75mg Capsule PO 04/04/25 08:59 DAILY WON Discontinued Medications Generic Name Dose Route Start Last Admin Trade Name Freq PRN Reason Stop Dose Admin Albuterol/Ipratropium 2 puff 03/04/25 18:00 Combivent 20mcg/100mcg Respimat Inhaler IH 04/03/25 17:59 BIDRT WON Iopamidol 70 ml 03/04/25 13:07 03/04/25 13:08 Iopamidol-370 (76%);100ml Bottle IV 03/04/25 13:08 70 ml ONCE ONE Administration Sodium Chloride 10 ml 03/04/25 13:07 03/04/25 13:08 Sodium Chloride 0.9% 10ml Syr (Rad Only) IV 03/04/25 13:08 10 ml ONCE ONE Administration Sodium Chloride 50 ml 03/04/25 13:07 03/04/25 13:08 0.9 % Sodium Chloride 50 Ml Vial IV 03/04/25 13:08 50 ml ONCE ONE Administration ORDERS Category Date Time Status CT angio chest PE protocol Stat Cat Scan 03/04/25 12:51 Completed CXR 2 view (NOT portable) [XR chest 2V] Stat Exams 03/04/25 11:57 Completed POCUS Point of Care (ER Only) Stat Exams 03/04/25 12:25 Completed XR chest portable DAILY Exams 03/05/25 06:00 Ordered BNP [NT Pro Brain Natriuretic Pep.] Stat Lab 03/04/25 11:44 Completed Body Fluid: Cell Count w/ Diff Stat Lab 03/04/25 14:58 Results Complete Blood Count Auto Diff AMLAB Lab 03/05/25 06:00 Ordered Complete Blood Count Auto Diff Stat Lab 03/04/25 11:44 Completed Comprehensive Metabolic Panel AMLAB Lab 03/05/25 06:00 Ordered Comprehensive Metabolic Panel Stat Lab 03/04/25 11:44 Completed Cytology Routine Lab 03/04/25 13:56 Ordered Magnesium AMLAB Lab 03/05/25 06:00 Ordered Trop I [Troponin I] Stat Lab 03/04/25 11:44 Completed Troponin I Q3H Lab 03/04/25 15:45 Completed Troponin I Q3H Lab 03/04/25 18:00 Ordered Blood Culture Stat Micro 03/04/25 13:42 Received Body Fluid Cult & Gram Stain Stat Micro 03/04/25 14:58 Results Venous Blood Gas Stat RT 03/04/25 11:48 Completed Medical Decision Narrative: Patient is a 49-year-old gentleman with a past medical history of recent pneumonia in early February who presented to the emergency department with shortness of breath. On arrival, patient was hemodynamically stable with unremarkable vital signs. Differential included but not limited to: ACS/AR, pneumonia, pleural effusion, heart failure exacerbation, pneumothorax, amongst others. Patient's labs were reviewed and interpreted by myself: CBC showed no leukocytosis, hemoglobin was stable at 8. VBG was unremarkable. CMP was unremarkable. BNP mildly elevated at 2380. Initial troponin less than 0.01. Chest x-ray was obtained and was reviewed and interpreted by myself and showed likely mixture of effusion and pneumonia on the left side. Given the excess dense of the pneumonia and pleural effusion, bedside ultrasound was performed which showed significant left-sided effusion. While at bedside, patient became hypoxic to 82% on room air therefore patient was placed on 2 L nasal cannula. EKG was reviewed and interpreted by myself and showed normal sinus rhythm without acute ST or T wave changes concerning for ischemia. Given patient's extensive pleural effusion and pneumonia, CT PE was ordered to further evaluate patient's pleural effusion. Patient CT scan was reviewed and interpreted by myself and showed significant left-sided effusion with mixed likely middle lobe pneumonia. Patient was given azithromycin and Rocephin for antimicrobial coverage. Given patient's acute hypoxic respiratory failure requiring 2 L nasal cannula and patient's significant effusion and pneumonia felt the patient warranted admission. After discussion with the hospitalist, pulmonology is not available until next week therefore bedside thoracentesis was performed. Bedside thoracentesis was performed under ultrasound guidance and blood return. 500mL was removed and saftecentesis pigtail was left in place and sutured. Patient was ultimately admitted to the hospitalist for further workup and evaluation. Procedures Chest Tube Chest Tube 1: Chest tube type: [id number] Chest Tube Location: left (posterior midclavicular) Chest Tube Prep: Yes sterile drapes applied Local Anesthetic: lidocaine 1% Amount of anesthesia used (mL): 10 Incision Made With: #10 blade Post Procedure: sutured to skin Tube Drainage: blood Amount of initial drainage (mL): 500 Patient Tolerated Procedure: Yes Critical Care Critical Care Time Critical Care Time: No
[2025-03-04 11:54] LABS: Hematocrit 26.1 % (42.0-52.0); Hemoglobin 8.0 g/dL (14.1-18.0); Immature Granulocytes % 0.4 %; Mean Corpuscular HGB Conc 30.7 g/dL (31.8-35.4); Mean Corpuscular Hemoglobin 28.9 pg (27.0-31.2); Mean Corpuscular Volume 94.2 fl (80-94); Nucleated Red Blood Cells % 0 %; Platelet Count 167 K/mm3 (142-424); Red Blood Count 2.77 M/mm3 (4.60-6.20); Red Cell Distribution Width-SD 54.0 fL; White Blood Count 4.7 K/mm3 (4.8-10.8)
[2025-03-04 11:57] LABS: Lactate Venous 1.9 mmol/L (0.4-2.0); VBG HCO3 28.0 mmol/L (23-30); VBG PCO2 54.0 mmol/L (35-51); VBG PH 7.33 mmol/L (7.31-7.41); VBG PO2 36.7 mmol/L (28-40)
--- NOTE | 2025-03-04 11:57 | XR_ITS ---
FINAL REPORT CLINICAL HISTORY: shortness of breath COMPARISON: 02/15/2025 FINDINGS: PA and lateral views of the chest were obtained. The heart size is normal. There has been interval worsening of the left perihilar and left lower lobe opacity. A left pleural effusion has increased in size. There is no pneumothorax. IMPRESSION: Worsening left lung opacity and effusion could be related to pneumonia. Recommend continued follow-up. Reviewed, Interpreted and Dictated by Maggy Mayers MD Transcribed by Joaquina Aviles Authenticated and [facility]
[2025-03-04 11:59] LABS: Albumin Level 3.5 g/dl (3.5-5.0); Chloride 96 mmol/L (98-107)
[2025-03-04 12:00] LABS: Potassium 3.7 mmoL/L (3.5-5.1); Sodium 135 mmol/L (136-145)
--- NOTE | 2025-03-04 12:01 | ECG_ITS ---
APPROVED REPORT Exam: Resting ECG HR:74 bpm ECG Measurements Heart Rate 74 AXES AK 134 P 51 QRSd 94 QRS 59 QT 364 T 60 QTc 391 Conclusion SINUS RHYTHM NONSPECIFIC ST & T-WAVE ABNORMALITY BORDERLINE ECG Electronically signed by : JUDE BREWSTER, 03/05/2025 13:51:28
[2025-03-04 12:02] LABS: Alanine Aminotransferase 11 U/L (12-78); Albumin/Globulin Ratio 1.1 (1.1-1.8); Alkaline Phosphatase 110 U/L (38-126); Anion Gap 12.7 mEq/L (5-15); Aspartate Amino Transferase 17 U/L (17-59); Bilirubin,Total 0.4 mg/dl (0.2-1.3); Blood Urea Nitrogen 9 mg/dl (9-20); Carbon Dioxide 30 mmol/L (22.0-30.0); Creatinine Clearance Estimated 154 mL/min (50-200); Creatinine,Serum 0.80 mg/dl (0.66-1.25); Estimated Glomerular Filt Rate 104 ml/min (>60); GFR (African American) 125 ML/MIN (>60); Globulin 3.1 g/dL (1.3-3.2); Total Protein,Serum 6.6 g/dl (6.3-8.2)
[2025-03-04 12:03] LABS: Calcium 8.1 mg/dl (8.4-10.2); Glucose 107 mg/dl (74-100)
[2025-03-04 12:23] LABS: Troponin I < 0.01 ng/ml (0.00-0.034)
--- NOTE | 2025-03-04 12:51 | CT_ITS ---
FINAL REPORT TECHNIQUE: Axial imaging of the chest is obtained after the administration of contrast. 3-D MIP reformatted images were also obtained and reviewed per PE protocol. CLINICAL HISTORY: shortness of breath COMPARISON: 12/29/2024 FINDINGS: The pulmonary arteries are well filled. There is no evidence of pulmonary embolus. There is no aortic dissection. The heart is mildly enlarged but stable. There is no axillary lymphadenopathy. Mildly prominent mediastinal lymph nodes are noted. A left prevascular lymph node measures 18 mm, was 17 mm and is unchanged. There are stable mildly enlarged right hilar lymph nodes. There has been interval development of ground-glass opacity in the left lung which could be atelectasis or mild edema. Also, left lower lobe airspace disease has increased from the prior exam and favored to represent pneumonia. There has been interval improvement in patchy airspace opacities in the right lung.. Right pleural effusion has decreased in size. However, there has been interval increase in size of the left pleural effusion which is now moderate and partially loculated. No pericardial effusion. Limited evaluation of the upper abdomen demonstrate the spleen is enlarged but incompletely imaged. A left adrenal nodule is stable. There are no acute findings.. Multiple compression fractures at the thoracolumbar junction are stable. IMPRESSION: No evidence of pulmonary embolism or aortic dissection. Interval increase in size of left pleural effusion, now loculated. Left lower lobe pneumonia. Splenomegaly. Reviewed, Interpreted and Dictated by Maggy Mayers MD Transcribed by Megha Cheung Authenticated and [facility]
[2025-03-04 12:54] LABS: NT Pro Brain Natriuretic Pep. 2380 pg/mL (0-125)
[2025-03-04] MEDS: 0.9 % SODIUM CHLORIDE 50 ML VIAL IV (13:08)
[2025-03-04] MEDS: SODIUM CHLORIDE 0.9% 10ML SYR (RAD ONLY) 10 ML IV (13:08)
[2025-03-04] MEDS: IOPAMIDOL-370 (76%);100ML BOTTLE 70 ML IV (13:08)
--- NOTE | 2025-03-04 13:41 | P.HP_ITS ---
History of Present Illness *Admission Date: 03/04/25 *Reason for visit:: dyspnea *History of present illness: Mr. Barrera is a 49-year-old male with multiple comorbidities including chronic HFpEF, recent pneumonia, COPD, hypothyroid, iron deficiency anemia. He presented to the ER with concern for some shortness of breath and weakness. Was treated earlier this month for pneumonia and just felt like he was not getting better. Was also having some chest discomfort on his left side. On arrival, initial labs show stable hemoglobin at 8. Patient is afebrile and initially satting in the low 90s on room air. Kidney function and electrolytes are normal. Chest x-ray showed concern for pneumonia with possible effusion. Chest CT obtained showing large left-sided pleural effusion. Medicine was consulted for admission. I requested that the ER perform thoracentesis for both diagnostic and therapeutic benefit prior to us getting him to the floor. On performance of thoracentesis, patient found to have significant hemothorax. Only blood thinner is aspirin. Denies any recent trauma to his left chest. No known history of cancer. Blood does appear old. At the time of my evaluation, he was placed on 2 L oxygen due to sats in the high 80s. Not tachycardic at this time. No acute distress. Chest tube/pigtail in left mid axillary region draining dark blood. [facility] Disclaimer: The information contained in this section may have been updated after the patient was seen, as this information can be updated by other users. Medical History Vertigo Acute and chronic respiratory failure with hypoxia Peripheral vascular disease of foot Mixed hyperlipidemia COPD mixed type Hypothyroidism Hyperparathyroidism History of hypokalemia Tobacco abuse disorder Tobacco abuse counseling Hilar lymphadenopathy Mediastinal lymphadenopathy Screening for lung cancer COPD (chronic obstructive pulmonary disease) Smoking greater than 30 pack years Dyspnea on exertion MRSA (methicillin resistant Staphylococcus aureus) Arthritis CHF (congestive heart failure) PVD (peripheral vascular disease) PAD (peripheral artery disease) Myocardial infarction Hyperlipidemia Hypertension CAD (coronary artery disease) Atherosclerosis History of anemia Edema of both lower extremities 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 Insomnia Edema Surgical History Hx of neck surgery History of back surgery History of esophagogastroduodenoscopy (EGD) History of coronary artery stent placement Hx of cholecystectomy History of cardiac cath History of appendectomy History of colonoscopy Family History Diabetes Coronary artery disease Alcoholism Hyperlipidemia Kidney disease Heart attack Cancer Father Mother Hypertension Social History Smoking Status: Current every day smoker tobacco type: cigarettes packs per day: 1 alcohol intake: former year quit: soci substance use type: former substance user and painkillers current occupational status: disabled Travel in the last 8 weeks?: None adopted: No caregiver/support person: No foster care: No household members: family housing: house lives independently: Yes marital status: education level: high school current occupational exposures/hazards: No caffeine: Yes special bety needs: No agree to transfusion: No do you feel safe at home: Yes victim of physical abuse: No victim of emotional abuse: No victim of sexual abuse: No would you like helpful sources: No Have you lived/traveled outside [place] in past 30 days?: No Contact w/someone who lives/traveled outside [place] past 30 days?: No Exposure to someone with infectious disease in past 14 days?: No Do you have a fever (greater than 100.4 F or 38 C)?: No Have you tested positive for COVID-19?: No Exposed to someone with COVID-19 in past 14 days?: No Do you have a sore throat?: No Do you have a cough?: Yes Do you have any weakness?: No Do you have any diarrhea?: No Are you experiencing any unusual bleeding?: No Do you have any muscle aches/pain?: No Do you have any abdominal pain?: No Are you experiencing loss of taste or smell?: No Other Medical History Have you received the Flu Vaccine for this season: No Have you received the Pneumonia Vaccine: No Review of Systems Review of Systems Review of systems (narrative): 14 point review of systems performed, pertinent positives and negatives as per HPI Meds Home Medications and Allergies Home Medications ?Medication ?Instructions ?Recorded ?Confirmed ?Type buprenorphine 8 mg-naloxone 2 mg 2 tab sublingual CHAITANYA Y addiction 06/21/18 03/04/25 History sublingual tablet ipratropium 20 mcg-albuterol 100 2 puff inhalation BID 11/17/24 03/04/25 History mcg/actuation mist for inhalation (Combivent Respimat) levothyroxine 25 mcg tablet 25 mcg PO DAILY 11/17/24 1 05/04/24 History omeprazole 20 mg capsule,delayed 20 mg PO DAILY 03/04/25 History release venlafaxine 150 mg 150 mg PO DAILY 11/17/24 History capsule,extended release 24 hr venlafaxine 75 mg capsule,extended 75 mg PO DAILY 11/0703/04/25 History release 24 hr aspirin 81 mg tablet,delayed 81 mg PO DAILY 30 days #3 0 tabs 11/18/24 03/04/25 Rx release empagliflozin 10 mg tablet 10 mg PO DAILY 30 days #30 tabs 11/18/24 03/04/25 Rx (Jardiance) finerenone 10 mg tablet (Kerendia) 10 mg PO DAILY 30 d ays #30 tabs 11/18/24 03/04/25 Rx atorvastatin 40 mg tablet 40 mg PO HS 30 days #30 tabs 12/30/24 03/04/25 Rx furosemide 40 mg tablet (Lasix) 40 mg PO DAILY 30 days #30 tabs 12/30/24 03/04/25 Rx promethazine 25 mg tablet 25 mg PO Q8HP PRN Nausea And 03/04/25 03/04/25 History Vomiting New Prescriptions to Start Prescriptions: Allergies Allergy/AdvReac Type Severity Reaction Status Date / Time cephalexin (From Keflex) Allergy Unknown Verified 01/27/25 10:15 allergy reaction ciprofloxacin (From Cipro) Allergy Unknown Verified 01/27/25 10:15 allergy reaction tramadol Allergy Unknown Verified 01/27/25 10:15 allergy reaction Exam Data for Last 24 hours Vital signs and Labs for Last 24 Hours: Temp Pulse Resp BP Pulse Ox O2 Del Method O2 Flow Rate 99.0 F 87 13 133/72 98 Nasal Cannula 2 03/04/25 11:36 03/04/25 12:30 03/04/25 12:30 03/04/25 12:30 03/04/25 12:30 03/04/25 12:30 03/04/25 12:30 Laboratory Results - last 24 hr 03/04/25 11:44: WBC 4.7 L, RBC 2.77 L, Hgb 8.0 L, Hct 26.1 L, MCV 94.2 H, MCH 28.9, MCHC 30.7 L, RDW 15.7, Plt Count 167, MPV 8.4, Neut % (Auto) 72.7, Lymph % (Auto) 19.0, [place] % (Auto) 6.5, Eos % (Auto) 0.8, Baso % (Auto) 0.6, Neut # (Auto) 3.4, Lymph # (Auto) 0.9, [place] # (Auto) 0.3, Eos # (Auto) 0.0, Baso # (Auto) 0.0, Sodium 135 L, Potassium 3.7, Chloride 96 L, Carbon Dioxide 30, Anion Gap 12.7, BUN 9, Creatinine 0.80, Estimated Creat Clear 154, Estimated GFR 104, Est GFR ( Amer) 125, Glucose 107 H, Calcium 8.1 L, Total Bilirubin 0.4, AST 17, ALT 11 L, Alkaline Phosphatase 110, Troponin I < 0.01, NT-Pro-B Natriuret Pep 2380 H, Total Protein 6.6, Albumin 3.5, Globulin 3.1, Albumin/Globulin Ratio 1.1 03/04/25 11:48: VBG pH 7.33, VBG pCO2 54.0 H, VBG pO2 36.7, VBG HCO3 28.0, VBG Total CO2 29.6 H, VBG O2 Saturation 69.7, VBG Base Excess 2.1, VBG Lactic Acid 1.9 I & O for Last 24 hours: Intake & Output 03/01/25 03/02/25 03/03/25 03/04/25 23:59 23:59 23:59 23:59 Weight 95.254 kg Constitutional Constitutional: mild distress, obese, chronically ill appearing and cooperative *Routine HEENT Exam Head: Present normocephalic and atraumatic Eye: Present EOMI and PERRL ENT: Present mucous membranes moist *Routine Neck Exam Neck: Present supple and full ROM Routine Chest/Breast/Axilla Exam Comments: Pigtail in left chest mid axillary line *Routine Respiratory Exam Respiratory: Present decreased breath sounds, crackles (Left lung field), normal respiratory effort, able to speak in complete sentences and symmetric chest movement; Absent rhonchi or wheezes *Routine Cardiovascular Exam Cardiovascular: Present RRR, Normal S1 and Normal S2 *Routine Abdominal Exam Abdominal: Present soft and normoactive bowel sounds; Absent tenderness *Routine Rectal Exam Rectal:: deferred *Routine Genitalia Exam Genitalia:: deferred *Routine Extremities Exam Extremities: Present edema (Trace in lower extremities most visible in thighs) and normal capillary refill (In fingers); Absent cyanosis or clubbing Comments: Both lower extremities just below the knee extremely hard darkened skin still has sensation to it to the ankles and feet. Long overgrown nails, hyperkeratosis of skin on lower legs and feet. Quarter sized wound dorsum of left foot that is scabbed with no active drainage. Centimeter diameter scabbed wound right medial ankle with no active bleeding. Wounds are through the epidermis. Consistent with vascular ulcers. *Routine Skin Exam Skin: Present dry, warm and wounds (Feet as above and extremity exam) Comments: Hyperkeratotic skin below the knee bilaterally *Routine Neurological Exam Neurological: Present alert, oriented X3, CN II-XII intact, moving all extremities, vision grossly intact, hearing grossly intact and normal speech Assessment and Plan *Assessment and plan (1) Pneumonia: Status: Acute Qualifiers: Laterality: bilateral Lung location: lower lobe of lung Pneumonia t ype: due to unspecified organism Qualified Code(s): J18.9 - Pneumonia, unspecified organism Category: Medical Code(s): J18.9 - Pneumonia, unspecified organism (2) Hemothorax: Problem Comment: On left Status: Acute Category: Medical Code(s): J94.2 - Hemothorax (3) Pleural effusion: Status: Acute Category: Medical Code(s): J90 - Pleural effusion, not elsewhere classified (4) Venous stasis dermatitis: Status: Acute Category: Medical Code(s): I87.2 - Venous insufficiency (chronic) (peripheral) (5) COPD mixed type: Status: Acute Category: Medical Code(s): J44.9 - Chronic obstructive pulmonary disease, unspecified (6) Hypothyroidism: Status: Acute Qualifiers: Hypothyroidism type: unspecified Qualified Code(s): E03.9 - Hypothyroidism, unspecified Category: Medical Code(s): E03.9 - Hypothyroidism, unspecified (7) Tobacco abuse: Status: Chronic Category: Medical Code(s): Z72.0 - Tobacco use (8) CAD (coronary artery disease): Status: Chronic Qualifiers: Associated angina: without angina Coronary Disease-Associated Artery/Lesion type: [place] artery [place] vs. transplanted heart: [place] heart Qualified Code(s): I25.10 - Atherosclerotic heart disease of [place] coronary artery without angina pectoris Category: Medical Code(s): I25.10 - Atherosclerotic heart disease of [place] coronary artery without angina pectoris (9) Opiate dependence: Status: Chronic Qualifiers: Substance use status: in remission Qualified Code(s): F11.21 - Opioid dependence, in remission Category: Medical Code(s): F11.20 - Opioid dependence, uncomplicated Plan Mr. Barrera is a 49-year-old male with history of COPD, HFpEF, recent pneumonia who presented with shortness of breath and left-sided chest pain. Workup in the ER concerning for pneumonia with effusion. Thoracentesis performed with iden tification of hemothorax. Discussed case with ER physician, request admission for antibiotics and monitoring of left hemothorax. I decided to admit to stepdown level of care for further management. Typed and crossed 2 units in case his hemoglobin drops. Blood does appear old at this time. Differential includes cancer, pulmonary infarct, trauma, or spontaneous hemorrhage. Continuing IV antibiotics. Supplemental oxygen as needed for sats greater 90%. Requiring inpatient management. Problems addressed as follows: #Acute hypoxic respiratory failure # pneumonia # Left-sided hemothorax - Treated for pneumonia earlier this month. White count normal at 4.7. Hemoglobin low at 8 but stable with his chronic anemia. Continue supplemental oxygen for goal sats greater 90%, currently on 2 L - Initiated on ceftriaxone 2 g daily and azithromycin 500 mg daily. Continue pending blood and sputum cultures. - Fluid studies, culture, Gram stain pending on pleural fluid. Grossly appears bloody. Consistent with hemothorax. Unclear specific etiology. Differential includes cancer, trauma, pulmonary infarct, spontaneous hemorrhage. -Holding anticoagulation including aspirin and DVT prophylaxis due to hemothorax. -CTA of chest personally reviewed showing no blush, extravasation, or bleeding. No noted PEs. Does have left lower lobe pneumonia/consolidation per my review. -Repeat CBC, CMP, magnesium ordered for the morning - Combivent every 6 hours scheduled - Respiratory panel negative for COVID and flu #HFpEF, stable, not in exacerbation ? BNP 2300, lower than its been in the past several months. Cannot any regimen include Lipitor 40 mg nightly, Lasix 40 mg daily, Jardiance 10 mg daily, Kerendia 10 mg daily. - Echo obtained 3 months ago with normal BiV systolic function and borderline RV function. #Lower extremities ulcers #Lower extremity venous insufficiency, stasis ? Left dorsal foot, right medial ankle ulcers present on admission. Podiatry consulted as he follows with them as an outpatient. Wound dressed on admission with Betadine and clean gauze. - A1c has been well-controlled at less than 6 consistently. Arterial ultrasound studies unremarkable for PAD. ? Ulcers seem most consistent with venous stasis given location, and significant venous stasis changes in lower extremities including significant hemosiderin deposition. ? Will need outpatient podiatry follow-up #Macrocytic anemia, chronic, present on admission: Hemoglobin 8, stable from last admission. MCV 94, platelets 167, MCV improved after B12 injection last visit. - Transfusion threshold hemoglobin less than 7. Typed and crossed for 2 units given hemothorax above. #Opioid use disorder, in remission: Continue home Suboxone 16/4 mg daily. #Hypothyroidism: Continue home levothyroxine 25 mcg. TSH 2.8 on 12/15/24. #Anxiety/depression: Continue home venlafaxine 225 mg daily. Full code SCDs Cardiac diet
--- NOTE | 2025-03-04 14:18 | HMH.PHAINT1 ---
Pharmacy Intervention Comments: MEDICATION RECONCILIATION COMPLETED ON PATIENT USING EXTERNAL FILL HISTORY FROM PHARMACY, LIST FROM CARDIOLOGY OFFICE, DISCHARGE SUMMARY FROM PREVIOUS ADMISSION, AND TIERA REPORT. -JEANNE LINARES, ROSEMARIED
[2025-03-04 15:11] LABS: Appearance,Body Fld. Bloody; Source, Body Fld. Thoracentesis Fluid; Volume,Body Fld. 500 mL
[2025-03-04 15:24] LABS: RBC,Body Fluid 1005000 cells/uL (< 10 X 10^3); TNC,Body Fluid 1839 cells/uL (< 1000)
[2025-03-04] MEDS: AZITHROMYCIN 500 MG in 0.9 % SODIUM CHLORIDE 250 ML 250 MG IV (15:42)
[2025-03-04 16:20] LABS: Troponin I < 0.01 ng/ml (0.00-0.034)
--- NOTE | 2025-03-04 17:00 | PC.NURSE ---
PT ARRIVED TO THE ICU VIA STRETCHER WITH ICU STAFF
[2025-03-04 17:36] LABS: Hematocrit 22.6 % (42.0-52.0); Hemoglobin 7.0 g/dL (14.1-18.0)
[2025-03-04 17:38] LABS: Mononuclear WBCs,Body Fluid 80 %; Polynuclear WBC,Body Fluid 20 %
[2025-03-04] MEDS: COMBIVENT 20MCG/100MCG RESPIMAT INHALER 2 PUFF IH ×2 (18:14→23:45)
[2025-03-04 19:21] LABS: Troponin I < 0.01 ng/ml (0.00-0.034)
[2025-03-04] MEDS: ATORVASTATIN 40MG TABLET 40 MG PO (21:40)
[2025-03-04] MEDS: PANTOPRAZOLE 40MG TABLET 40 MG PO (21:40)
[2025-03-04] MEDS: GABAPENTIN 300MG CAPSULE 300 MG PO (21:40)
[2025-03-04 21:44] LABS: Hematocrit 22.0 % (42.0-52.0)
[2025-03-04 21:50] LABS: Hemoglobin 6.9 g/dL (14.1-18.0)
[2025-03-05] VITALS: BP 118/64; PULSE 69; PULSE 78; RESP 17; TEMP 36.8; O2SAT 93
[2025-03-05 00:10] VITALS: BP 118/64; PULSE 69; RESP 17; TEMP 36.7; O2SAT 92
[2025-03-05 00:30] VITALS: BP 104/56; PULSE 70; RESP 9; TEMP 36.8; O2SAT 89
--- NOTE | 2025-03-05 04:55 | P.SWB_ITS ---
Discharge/Transfer Plan of Care Resident has been informed of condition and prognosis?: Yes Mobility Status: ambulatory with assistance Goal for planned treatment course: Large continous bloody output s/p thoracentesis. Thoracic surgeon caitlin. Rehab Potential: Fair I concur with the most recent History & Physical: Yes Date of most recent H & P: 03/04/25 Certification: I have reviewed and agree with this resident's plan of care. I certify that post-hospital correction facility services are required to be given on an inpatient basis because of the need for correction care on a continuing basis for the condition(s) for which he/she is receiving inpatient hospital services prior to admission to swing bed. I also certify that the resident meets existing SNF level of care definition.
[2025-03-07 13:09] LABS: Albumin, Body Fluid 2.4 g/dL (Not Estab.); Glucose, Body Fluid 60 mg/dL (.); LD, Body Fluid 303 IU/L (.)
== END 2025-03-05 01:15 | disposition short-term general hospital (02) | DRG 186 ==
LOC: ER 13:29 → ICU 15:09
PROVIDERS: Admitting Provider Internal Medicine Adolescent Medicine; Emergency Provider Student in an Organized Health Care Education/Training Program; PCP Nurse Practitioner Family; Visit Provider Internal Medicine Adolescent Medicine
DX: J94.2 Hemothorax (principal); J18.9 Pneumonia, unspecified organism; J96.01 Acute respiratory failure with hypoxia; I50.32 Chronic diastolic (congestive) heart failure; L97.319 Non-pressure chronic ulcer of right ankle with unspecified severity; J44.0 Chronic obstructive pulmonary disease with (acute) lower respiratory infection; J90 Pleural effusion, not elsewhere classified; E03.9 Hypothyroidism, unspecified; F11.21 Opioid dependence, in remission; F32.A Depression, unspecified; I87.2 Venous insufficiency (chronic) (peripheral); I25.10 Atherosclerotic heart disease of native coronary artery without angina pectoris; L97.529 Non-pressure chronic ulcer of other part of left foot with unspecified severity; D53.9 Nutritional anemia, unspecified; F41.9 Anxiety disorder, unspecified; F17.210 Nicotine dependence, cigarettes, uncomplicated; Z88.1 Allergy status to other antibiotic agents; Z88.5 Allergy status to narcotic agent; Z79.890 Hormone replacement therapy; Z79.82 Long term (current) use of aspirin; Z79.899 Other long term (current) drug therapy
CPT/HCPCS: 36415; 36430; 71046; 71275; 80053; 82042; 82803; 82945; 83615; 83880; 83986; 84157; 84484; 85014; 85018; 85025; 86850; 87040; 87070; 87205; 89051; 93005; 94640; 99285; J0456; J0696; J7050; P9016; Q9967

== ENCOUNTER 2025-03-19 14:21 | Outpatient (CLI) | payer MEDICARE, SELFPAY ==
[2025-03-19 14:49] LABS: Hematocrit 30.5 % (42.0-52.0); Hemoglobin 9.6 g/dL (14.1-18.0); Immature Granulocytes % 0.3 %; Mean Corpuscular HGB Conc 31.5 g/dL (31.8-35.4); Mean Corpuscular Hemoglobin 28.4 pg (27.0-31.2); Mean Corpuscular Volume 90.2 fl (80-94); Nucleated Red Blood Cells % 0 %; Platelet Count 211 K/mm3 (142-424); Red Blood Count 3.38 M/mm3 (4.60-6.20); Red Cell Distribution Width-SD 52.2 fL; White Blood Count 6.6 K/mm3 (4.8-10.8)
[2025-03-19 15:24] LABS: Albumin Level 3.6 g/dl (3.5-5.0); Chloride 96 mmol/L (98-107); Potassium 4.0 mmoL/L (3.5-5.1); Sodium 137 mmol/L (136-145)
[2025-03-19 15:27] LABS: Alanine Aminotransferase 17 U/L (12-78); Albumin/Globulin Ratio 1.2 (1.1-1.8); Alkaline Phosphatase 145 U/L (38-126); Anion Gap 13.0 mEq/L (5-15); Aspartate Amino Transferase 22 U/L (17-59); Bilirubin,Total 0.5 mg/dl (0.2-1.3); Blood Urea Nitrogen 11 mg/dl (9-20); Calcium 8.1 mg/dl (8.4-10.2); Carbon Dioxide 32 mmol/L (22.0-30.0); Creatinine,Serum 0.70 mg/dl (0.66-1.25); Estimated Glomerular Filt Rate 121 ml/min (>60); GFR (African American) 146 ML/MIN (>60); Globulin 3.1 g/dL (1.3-3.2); Glucose 124 mg/dl (74-100); Total Protein,Serum 6.7 g/dl (6.3-8.2)
[2025-03-19 16:12] LABS: Vitamin B12 306 pg/mL (239-931)
== END 2025-03-19 23:59 | disposition home or self-care (01) ==
LOC: LAB 14:22
PROVIDERS: PCP Nurse Practitioner Family; Visit Provider Internal Medicine Medical Oncology
DX: D64.9 Anemia, unspecified (principal)
CPT/HCPCS: 36415; 80053; 82607; 85025

== ENCOUNTER 2025-03-20 09:49 | Outpatient (CLI) | payer MEDICARE, SELFPAY ==
[2025-03-20 17:03] LABS: Iron 37 ug/dL (49-181)
[2025-03-20 17:12] LABS: Total Iron Binding Capacity 317 ug/dL (261-462)
[2025-03-20 17:39] LABS: Ferritin 129 ng/ml (17.9-464)
== END 2025-03-20 23:59 | disposition home or self-care (01) ==
LOC: LAB.DROPOF 03-23 09:50
PROVIDERS: PCP Nurse Practitioner Family; Visit Provider Internal Medicine Medical Oncology
DX: D64.9 Anemia, unspecified (principal)
CPT/HCPCS: 82728; 83540; 83550